=== PATIENT | male | born 1955 | race Hispanic/Latino ===

== ENCOUNTER 2017-11-13 13:03 | Emergency (ER) | payer BC ==
--- NOTE | 2017-11-13 14:21 | ER ---
Nurse's Notes [facility] Name: Alec Ortiz Jr Age: 62 yrs Sex: Male : 1955 Arrival Date: 11/13/2017 Time: 13:06 Bed 25 Private MD: Rome Bush R Diagnosis: Tinea pedis Presentation: 11/13 13:51 Presenting complaint: Patient states: c/o bilateral toes swelling x 2 days. Reports jl7 putting antibiotic ointment on and it's not helping. Transition of care: patient was not received from another setting of care. Onset of symptoms was November 11, 2017. Risk Assessment: Do you want to hurt yourself or someone else? Patient reports no desire to harm self or others. Initial Sepsis Screen: Does the patient meet any 2 criteria? No. Patient's initial sepsis screen is negative. Does the patient have a suspected source of infection? No. Patient's initial sepsis screen is negative. Care prior to arrival: None. 13:51 Method Of Arrival: Ambulatory [facility] 13:51 Acuity: WILLA 3 jl7 Triage Assessment: 13:21 General: Pt not in lobby at this time.. jl7 13:55 General: Appears in no apparent distress. uncomfortable, Behavior is calm, cooperative, jl7 appropriate for age. Pain: Complains of pain in right foot and left foot Pain currently is 6 out of 10 on a pain scale. GI: Reports nausea. Historical: - Allergies: 13:55 PENICILLINS; jl7 13:55 Codeine; jl7 - Home Meds: 13:55 metformin 500 mg Oral tab 1 tab 2 times per day [Active]; glimepiride 2 mg Oral tab 1 jl7 tab once daily [Active]; - PMHx: 13:55 Diabetes - NIDDM; Hypertension; jl7 - PSHx: 13:55 Cholecystectomy; jl7 - Immunization history:: Adult Immunizations not up to date. - Social history:: Smoking status: Patient/guardian denies using tobacco. - Ebola Screening: : No symptoms or risks identified at this time. Screenin:18 Abuse screen: Denies threats or abuse. Denies injuries from another. Nutritional kr2 screening: No deficits noted. Tuberculosis screening: No symptoms or risk factors identified. Fall Risk None identified. Assessment: 14:15 General: Appears in no apparent distress. comfortable, well groomed, well developed, kr2 well nourished, Behavior is calm, cooperative, appropriate for age. Pain: Complains of pain in left foot and right foot Pain currently is 5 out of 10 on a pain scale. Quality of pain is described as burning, throbbing, Is continuous, Alleviated by rest, Aggravated by weight bearing, Noted to be guarding. Neuro: Level of Consciousness is awake, alert, obeys commands, Oriented to person, place, time, situation. Cardiovascular: Capillary refill < 3 seconds in bilateral fingers Patient's skin is warm and dry. Respiratory: Airway is patent Respiratory effort is even, unlabored, Respiratory pattern is regular, symmetrical. GI: Abdomen is flat, non-distended, Reports nausea. Derm: Skin is healthy with good turgor, mild redness between toes, small crack in skin to bottom of right second toe. Musculoskeletal: Circulation, motion, and sensation intact. Vital Signs: 13:55 BP 147 / 82; Pulse 79; Resp 16 S; Temp 98.6(O); Pulse Ox 98% on R/A; Weight 95.25 kg jl7 (R); Height 5 ft. 6 in. (167.64 cm) (R); Pain 6/10; 13:55 Body Mass Index 33.89 (95.25 kg, 167.64 cm) jl7 ED Course: 13:06 Patient arrived in ED. mr 13:06 Rome Bush MD is Private Physician. mr 13:52 Triage completed. jl7 13:55 Arm band placed on left wrist. jl7 14:07 Sean Baker NP is PHCP. pm1 14:07 Vlad Hunter MD is Attending Physician. pm1 14:15 Tamara Garcia, IZZY is Primary Nurse. kr2 14:18 Patient has correct armband on for positive identification. Bed in low position. Call kr2 light in reach. Side rails up X 1. Pulse ox on. NIBP on. Door closed. Head of bed elevated. 14:28 No provider procedures requiring assistance completed. Patient did not have IV access kr2 during this emergency room visit. Administered Medications: No medications were administered Outcome: 14:20 Discharge ordered by . pm1 14:28 Discharged to home ambulatory. kr2 14:28 Condition: good 14:28 Discharge instructions given to patient, Instructed on discharge instructions, follow up and referral plans. medication usage, Demonstrated understanding of instructions, follow-up care, medications, Prescriptions given X 1. 14:28 Patient left the ED. kr2 Signatures: Alka Cedeno SamuelSean, SHEET SORTER SHEET SORTER pm1 Sonya Tavares, RN RN jl7 Tamara Garcia RN RN kr2
--- NOTE | 2017-11-13 14:21 | EDPHYS ---
Physician Documentation [facility] Name: Alec Ortiz Jr Age: 62 yrs Sex: Male : 1955 Arrival Date: 11/13/2017 Time: 13:06 Bed 25 Private MD: Rome Bush R ED Physician Vlad Hunter HPI: 11/13 14:16 This 62 yrs old Male presents to ER via Ambulatory with complaints of pm1 Bilateral Toe Pain. 14:48 The patient's rash thought to be caused by Has been working with his shoes and socks pm1 wet for the past few days. The rash is located on the all his toes bilaterally and between all his toes. The rash can be described as Painful and itchy. Onset: The symptoms/episode began/occurred 4 day(s) ago. Associated signs and symptoms: Pertinent negatives: fever, nausea, vomiting, Diarrhea. Severity of symptoms: in the emergency department the symptoms are worse. Treatment given at home: None. The patient has not recently seen a physician, the patient's primary care provider is Dr. Bush. Patient with complaints of pain to all of his toes bilaterally and pain between his toes in the webbing. 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 It has been raining just prior to onset of symptoms and duration of his symptoms. When it rains his socks and boots get wet. He does not change his socks and he works all day without changing them. Historical: - Allergies: 13:55 PENICILLINS; jl7 13:55 Codeine; jl7 - Home Meds: 13:55 metformin 500 mg Oral tab 1 tab 2 times per day [Active]; glimepiride 2 mg Oral tab 1 jl7 tab once daily [Active]; - PMHx: 13:55 Diabetes - NIDDM; Hypertension; jl7 - PSHx: 13:55 Cholecystectomy; jl7 - Immunization history:: Adult Immunizations not up to date. - Social history:: Smoking status: Patient/guardian denies using tobacco. - Ebola Screening: : No symptoms or risks identified at this time. ROS: 15:00 Constitutional: Negative for fever, chills, and weight loss, Eyes: Negative for injury, pm1 pain, redness, and discharge, ENT: Negative for injury, pain, and discharge, Neck: Negative for injury, pain, and swelling, Cardiovascular: Negative for chest pain, palpitations, and edema, Respiratory: Negative for shortness of breath, cough, wheezing, and pleuritic chest pain, Abdomen/GI: Negative for abdominal pain, nausea, vomiting, diarrhea, and constipation, Back: Negative for injury and pain, MS/Extremity: Negative for injury and deformity. 15:00 Neuro: Negative for headache, weakness, numbness, tingling, and seizure. 15:00 Skin: Positive for swelling, of the Toes, pain. Exam: 15:00 Constitutional: This is a well developed, well nourished patient who is awake, alert, pm1 and in no acute distress. Head/Face: Normocephalic, atraumatic. Chest/axilla: Normal chest wall appearance and motion. Nontender with no deformity. No lesions are appreciated. Cardiovascular: Regular rate and rhythm with a normal S1 and S2. No gallops, murmurs, or rubs. Normal PMI, no JVD. No pulse deficits. Respiratory: Lungs have equal breath sounds bilaterally, clear to auscultation and percussion. No rales, rhonchi or wheezes noted. No increased work of breathing, no retractions or nasal flaring. Abdomen/GI: Soft, non-tender, with normal bowel sounds. No distension or tympany. No guarding or rebound. No evidence of tenderness throughout. Back: No spinal tenderness. No costovertebral tenderness. Full range of motion. 15:00 Skin: Appearance: normal except for affected area, cellulitis, is not appreciated, consistent with tinea pedis. Interdigital scaling and cracking bilaterally. Vital Signs: 13:55 BP 147 / 82; Pulse 79; Resp 16 S; Temp 98.6(O); Pulse Ox 98% on R/A; Weight 95.25 kg jl7 (R); Height 5 ft. 6 in. (167.64 cm) (R); Pain 6/10; 13:55 Body Mass Index 33.89 (95.25 kg, 167.64 cm) jl7 MDM: 14:07 Patient medically screened. pm1 14:16 Data reviewed: vital signs. Data interpreted: Pulse oximetry: on room air is 98 %. pm1 Interpretation: normal. Counseling: I had a detailed discussion with the patient and/or guardian regarding: the historical points, exam findings, and any diagnostic results supporting the discharge/admit diagnosis, the need for outpatient follow up, to return to the emergency department if symptoms worsen or persist or if there are any questions or concerns that arise at home. Administered Medications: No medications were administered Disposition: 19:08 Co-signature as Attending Physician, Vlad Hunter MD. rn Disposition: 11/13/17 14:20 Discharged to Home. Impression: Tinea pedis. - Condition is Stable. - Discharge Instructions: Athlete's Foot. - Prescriptions for Clotrimazole 1 % Topical Cream - Apply to affected area 1 application by TOPICAL route every 12 hours; 30 gram. - Medication Reconciliation Form, Thank You Letter, Antibiotic Education form. - Follow up: Private Physician; When: 2 - 3 days; Reason: Recheck today's complaints, Continuance of care, Re-evaluation by your physician. Follow up: Emergency Department; When: As needed; Reason: Worsening of condition. - Problem is new. - Symptoms have improved. Signatures: Vlad Huntre MD MD rn Sean Baker, COMMUNITY MENTAL HEALTH SOCIAL WORKER COMMUNITY MENTAL HEALTH SOCIAL WORKER pm1 Sonya Tavares RN RN jl7 Tamara Garcia RN RN kr2 Corrections: (The following items were deleted from the chart) 14:28 14:20 11/13/2017 14:20 Discharged to Home. Impression: Tinea pedis. Condition is kr2 Stable. Forms are Medication Reconciliation Form, Thank You Letter, Antibiotic Education, Prescription Opioid Use. Follow up: Private Physician; When: 2 - 3 days; Reason: Recheck today's complaints, Continuance of care, Re-evaluation by your physician. Follow up: Emergency Department; When: As needed; Reason: Worsening of condition. Problem is new. Symptoms have improved. pm1
[2017-11-13 14:36] VITALS: BP 147/82; TEMP 98.6; O2SAT 98
== END 2017-11-13 14:28 | disposition home or self-care (01) ==
LOC: ER 13:03
DX: B35.3 Tinea pedis (principal); I10 Essential (primary) hypertension; E11.9 Type 2 diabetes mellitus without complications; Z88.0 Allergy status to penicillin; Z88.5 Allergy status to narcotic agent
CPT/HCPCS: 99283

== ENCOUNTER 2018-07-07 15:24 | Observation (INO) | payer BC ==
[2018-07-07 16:46] VITALS: O2SAT 97; BMI 33.5
[2018-07-07] MEDS ORDERED: GLUCAGON 1 MG/VIAL IM PRN (16:52)
[2018-07-07] MEDS ORDERED: D50W 25 GM/50 ML SYRINGE IV PRN (16:52)
[2018-07-07] MEDS ORDERED: PNEUMOCOCCAL VACCINE 0.5 ML IMVAC ONE (17:00)
[2018-07-07] MEDS ORDERED: INFLUENZA VACCINE (for 3y+) 0.5 ML DOSE IMVAC ONE (17:00)
[2018-07-07] MEDS: NACHLORIDE 0.45% 1,000 ML IV SCH (17:18)
[2018-07-07 17:54] LABS: Absolute Lymphocytes (CBC) 2.4 K/uL (0.7-4.9); Absolute Monocytes 0.8 K/uL (0.1-1.3); Absolute Neutrophil 4.9 K/uL (1.8-8.0); Basophils % 0.6 % (0-1.3); Eosinophils % 2.6 % (0-4.4); Hematocrit 46.4 % (39.6-49.0); Lymphocytes % 28.6 % (15.3-44.8); MPV 8.2 fL (7.6-11.3); Monocytes % 9.1 % (3.3-12.3); RBC Red Blood Cell Count 5.46 M/uL (4.33-5.43)
[2018-07-07 18:09] LABS: ALT/SGPT 56 U/L (12-78); AST/SGOT 29 U/L (15-37); Albumin 4.1 g/dL (3.4-5.0); Alkaline Phosphatase 77 U/L (45-117); BUN Blood Urea Nitrogen 9 mg/dL (7-18); Bicarbonate 31 mmol/L (21-32); Bilirubin Total 0.4 mg/dL (0.2-1.0); Glucose Level 142 mg/dL (74-106); Lipase 120 U/L (73-393); Potassium 4.1 mmol/L (3.5-5.1); Protein, Total 8.1 g/dL (6.4-8.2); Sodium Level 140 mmol/L (136-145)
[2018-07-07 18:16] LABS: Urine Appearance CLEAR; Urine Bilirubin NEGATIVE (NEG); Urine Blood NEGATIVE (NEG); Urine Color YELLOW; Urine Glucose NEGATIVE (NEG); Urine Protein NEGATIVE (NEG); Urine Specific Gravity 1.015 (1.005-1.030); Urine Urobilinogen 0.2 mg/dL (0.2-1.0)
[2018-07-07 18:17] LABS: Urine Microscopic Reflex NO UMIC
[2018-07-07] MEDS: MORPHINE 4 MG/ML SYR IV PRN ×2 (18:32→23:17)
--- NOTE | 2018-07-07 20:23 | RAD REPORT ---
EXAM DESCRIPTION: CT - Abdomen Pelvis W Contrast - 07/07/2018 7:35 pm CLINICAL HISTORY: Right-sided abdominal pain COMPARISON: CT study June 2012 TECHNIQUE: Biphasic, helical CT imaging of the abdomen and pelvis was performed following 100 ml non -ionic IV contrast. Oral contrast was given. All CT scans are performed using dose optimization technique as appropriate and may include automated exposure control or mA/KV adjustment according to patient size. FINDINGS: No suspicious findings in the lung bases. No focal liver lesions seen. Diffuse fatty infiltration of the liver is present. No spleen or pancrea tic abnormality. Cholecystectomy clips are present. No biliary tree dilatation. Symmetric renal function is seen with no hydronephrosis or suspicious renal mass. No pyelonephritis o r acute parenchymal process. No bladder abnormalities. No adrenal abnormalities. No dilated bowel loops or bowel wall thickening. Retrocecal appendix is normal. There is sigmoid and descending colon diverticulosis but no diverticulitis confirmed. No free air, free fluid or inflammat ory stranding. No hernia, mass or bulky lymphadenopathy. Right inguinal hernia repair changes are pr esent. No suspicious bony findings. IMPRESSION: Fatty infiltration of the liver. No focal liver lesion identified. Left-sided colonic diverticulosis without diverticulitis. No active GI process identifiable. No pyelonephritis, obstruction or other acute finding.
[2018-07-07] MEDS: INSULIN -REGULAR HUMAN 50 UNIT/0.5 ML ML SQ SCH (21:00)
[2018-07-07] MEDS ORDERED: INSULIN -REGULAR HUMAN 50 UNIT/0.5 ML ML SQ SCH (21:00)
[2018-07-08] MEDS: NACHLORIDE 0.45% 1,000 ML IV SCH ×2 (03:00→04:16)
[2018-07-08] MEDS: MORPHINE 4 MG/ML SYR IV PRN (04:16)
[2018-07-08 05:11] VITALS: TEMP 96.9
[2018-07-08] MEDS: INSULIN -REGULAR HUMAN 50 UNIT/0.5 ML ML SQ SCH ×2 (07:30→11:30)
[2018-07-08] MEDS ORDERED: ONDANSETRON 4 MG (ODT) TAB PO ONE (09:19)
--- NOTE | 2018-07-08 09:24 | HP ---
Date of Admission: 07/07/2018 Chief Complaint: Right abdominal pain. History Of Present Illness: A 63-year-old male was brought to the office with abdominal pain. He wa s found to have [id number]-[id number] tenderness in the right abdomen with a possibility of appendicitis or other acute pathology. The patient was admitted for observation. There is no history of urinary symptoms. Past Medical History: Positive for gallbladder surgery, type 2 diabetes, hyperlipidemia. Family History: Noncontributory. Personal History: He is allergic to codeine and penicillin. Review of Systems: The patient denied any chest pain. Home Medicines: Please refer to the chart. Physical Examination: General: Revealed 63-year-old male, in moderate pain. HEENT: Otherwise negative. Neck: Supple. JVD negative. Chest: Clear. Heart: Regular. Abdomen: Tender in right umbilical area. Bowel sounds present. No palpable mass. Extremities: No edema. Laboratory Data: White count, normal. Chem profile, normal. Assessment: 1.Abdominal pain. 2.Type 2 diabetes. 3.Status post gallbladder surgery. Plan: The patient had a CAT scan done yesterday. It did not show any evidence of acute pathology. The patient would need a colonoscopy; however, there is no GI on-call. The patient will be discharge d, and follow up in the office with GI workup. AMARA Voice ID: [id number]
[2018-07-08] MEDS ORDERED: AMLODIPINE 5 MG TAB PO ONE (11:46)
[2018-07-08 11:58] VITALS: BP 187/56
[2018-07-08] MEDS ORDERED: INFLUENZA VACCINE (for 3y+) 0.5 ML DOSE IMVAC ONE (12:00)
[2018-07-08] MEDS ORDERED: PNEUMOCOCCAL VACCINE 0.5 ML IMVAC ONE (12:00)
== END 2018-07-08 12:04 | disposition home or self-care (01) ==
LOC: 4TH 15:44
PROVIDERS: ADMIT Internal Medicine; ATTEND Internal Medicine
DX: R10.9 Unspecified abdominal pain (principal); E11.9 Type 2 diabetes mellitus without complications; E78.5 Hyperlipidemia, unspecified; Z90.49 Acquired absence of other specified parts of digestive tract; Z23 Encounter for immunization
CPT/HCPCS: 36415; 74177; 80053; 81003; 82962; 83690; 85025; 87086; 87088; 90670; G0008; G0009; G0378; Q2035; Q9967

== ENCOUNTER 2019-01-03 14:38 | Emergency (ER) | payer BC ==
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
[2019-01-03] MEDS ORDERED: CYCLOBENZAPRINE 10 MG TAB ONE (17:29)
[2019-01-03 20:23] VITALS: TEMP 98.3
[2019-01-03 20:24] VITALS: O2SAT 99
[2019-01-03 20:25] VITALS: BP 145/69
== END 2019-01-03 17:35 | disposition home or self-care (01) ==
LOC: ER 14:38
DX: S46.012A Strain of muscle(s) and tendon(s) of the rotator cuff of left shoulder, initial encounter (principal); S16.1XXA Strain of muscle, fascia and tendon at neck level, initial encounter; S39.012A Strain of muscle, fascia and tendon of lower back, initial encounter; V69.40XA Driver of heavy transport vehicle injured in collision with unspecified motor vehicles in traffic accident, initial encounter; I10 Essential (primary) hypertension; E11.9 Type 2 diabetes mellitus without complications; Z88.0 Allergy status to penicillin; Z88.5 Allergy status to narcotic agent
CPT/HCPCS: 70450; 71045; 72100; 72125; 72170; 99284

== ENCOUNTER 2019-09-21 09:05 | Emergency (ER) | payer BC ==
[2019-09-21 09:59] LABS: Absolute Lymphocytes (CBC) 1.5 K/uL (0.7-4.9); Basophils % 0.5 % (0-1.3); Hematocrit 41.2 % (39.6-49.0); Lymphocytes % 19.1 % (15.3-44.8); MPV 8.7 fL (7.6-11.3); RBC Red Blood Cell Count 4.78 M/uL (4.33-5.43)
--- NOTE | 2019-09-21 10:02 | RAD REPORT ---
EXAM DESCRIPTION: CT - Ct Stroke Brain Wo Cont - 09/21/2019 9:53 am CLINICAL HISTORY: left sided numbness Headache, drowsiness COMPARISON: No comparisons TECHNIQUE: All CT scans are performed using dose optimization technique as appropriate and may inclu de automated exposure control or mA/KV adjustment according to patient size. FINDINGS: No intracranial hemorrhage, hydrocephalus or extra-axial fluid collection.No areas of brai n edema or evidence of midline shift. The paranasal sinuses and mastoids are clear. The calvarium is intact. IMPRESSION: No acute intracranial abnormality. The findings were discussed with JERI Mares on 09-21-19 at 9:56 am by telephone.
[2019-09-21 10:05] LABS: Protime INR 0.97
--- OUTSIDE RECORDS SUMMARY | 2019-09-21 10:19 | XMS REPORT ---
:1955 Author Organization [facility] t Address [address] 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 Allergies, Adverse Reactions, Alerts This patient has no known allergies or adverse reactions. Medications This patient has no known medications. Procedures This patient has no known procedures. Encounters Start End Encounter Admission Attending Care Care Encounter Source Date/Time Date/Time Type Type Clinicians Facility Department ID 2019-08-04 2019-08-04 Telephone JOSE M Benitez [id number] 00:00:00 00:00:00 Amita HARRIS [id number] [facility] [id number] 2019-08-04 2019-08-04 Telephone JOSE M Long [id number] 00:00:00 00:00:00 Silvia HARRIS [id number] [facility] [id number] 2019-08-02 2019-08-02 Urgent Pob1, Acute [facility] [id number] 08:02:14 08:22:14 [facility] [id number] [place] [id number] [address] [id number] [address] Results This patient has no known results.
--- OUTSIDE RECORDS SUMMARY | 2019-09-21 10:20 | XMS REPORT | Summary of Care ---
:1955 Author Organization [facility] Address [address] [place] [address] Care Team Providers Name Role Phone Rome Juarez MD Primary Care Provider [phone] Reason for Visit Reason Comments Results Encounter Details Date Type Department Care Team Description 08/04/2019 Telephone ACCESS CENTER Silvia Long FNP Results 301 [facility] [address] [place] [address] [facility] [phone] [place] [id number] 15-1500 Allergies Active Allergy Reactions Severity Noted Date Comments Codeine Other - See comments 08/02/2019 Penicillins Other - See comments 08/02/2019 documented as of this encounter (statuses as of 08/04/2019) Medications Medication Sig Dispensed Refills Start Date End Date Status metFORMIN 500 mg TK 2 TS PO BID 0 05/13/2019 Active tablet glimepiride 2 mg TK 1 T PO QPM 0 05/13/2019 Active tablet amLODIPine 10 mg TK 1 T PO QAM. 0 07/18/2019 Active tablet lisinopril 40 mg TK 1 T PO QAM 0 07/04/2019 Active tablet pravastatin 20 mg TK 1 T PO QHS 0 07/04/2019 Active tablet benzonatate Take 1 capsule by 42 capsule 0 08/02/2019 08/16/19 20 Active (TESSALON PERLES) mouth 3 (three) 100 mg times daily for capsuleIndications: 14 days. Cough maalox:diphenhydrAMI Take 10 mL by 50 mL 0 08/02/201907/26 Active NE:lidocaine 2 % mouth as needed viscous for Oral 1:1:1Indications: mucositis for up Sore throat to 5 days. azithromycin Take 1 tablet by 5 tablet 0 08/02/2019 0 Active (ZITHROMAX Z-DOMINIK) mouth daily for 5 250 mg days. Take 500 mg tabletIndications: day 1, then 250 Sore throat, mg days 2 to 5. Pharyngitis, unspecified etiology documented as of this encounter (statuses as of 08/04/2019) Active Problems No known active problemsdocumented as of this encounter (statuses as of 08/04/2019) Social History Tobacco Use Types Packs/Day Years Used Date Never Assessed Sex Assigned at Date Recorded Not on file Job Start Date Occupation Industry Not on file Not on file Not on file Travel History Travel Start Travel End No recent travel history available. documented as of this encounter Last Filed Vital Signs Not on filedocumented in this encounter Plan of Treatment Health Maintenance Due Date Last Done Comments HEPATITIS C (HCV) SCREEN 1955 DTaP,Tdap,and Td Vaccines (1 - 1967 Tdap) COLONOSCOPY 2006 Zoster Recombinant Vaccine 2006 (SHINGRIX) (1 of 2) INFLUENZA VACCINE (#1) 2018 PNEUMOCOCCAL 0-64 YEARS COMBINED Aged Out No longer eligible based on SERIES patient's age to complete this topic documented as of this encounter Results Not on filedocumented in this encounter Insurance Payer Benefit Plan Subscriber ID Effective Dates Phone Address Type / Group [facility] [id number] 2018-Mehdi [phone] [address] PPO/POS [place] t [id number] [place] [address] documented as of this encounter
--- OUTSIDE RECORDS SUMMARY | 2019-09-21 10:20 | XMS REPORT | Summary of Care ---
:1955 Author Organization [facility] Address [address] [place] [id number] Care Team Providers Name Role Phone Rome Juarez MD Primary Care Provider [phone] Reason for Visit Reason Comments Results Encounter Details Date Type Department Care Team Description 08/04/2019 Telephone ACCESS CENTER Amita Benitez RN Results [address] [address] [place] [address] Allergies Active Allergy Reactions Severity Noted Date [...] Effective Dates Phone Address Type / Group [facility] [id number] 2018-Mehdi [phone] [address] PPO/POS [place] t 7 [id number] [place] [address] documented as of this encounter
--- OUTSIDE RECORDS SUMMARY | 2019-09-21 10:20 | XMS REPORT | Summary of Care ---
:1955 Author Organization [facility] Address [address] [place] [id number] Care Team Providers Name Role Phone Rome Juarez MD Primary Care Provider [phone] Reason for Visit Reason Comments Cough Shortness of Breath chest tightening is what he decribed Sore Throat Encounter Details Date Type Department Care Team Description 08/02/2019 Urgent Care [facility] Family Oneal Wood MD [address] [place] [id number] [phone] Pharyngitis, unspecified etiology (Prima ry Dx); [place] [id number], Acute Care Clinic Sore throat; [address] [place] [phone] Allergies Active Allergy Reactions Severity Noted Date Comments Codeine Other - See comments 08/02/2019 Penicillins Other - See comments 08/02/2019 documented as of this encounter (statuses as of 08/02/2019) Medications Medication Sig Dispensed Refills Start Date [...] as of this encounter (statuses as of 08/02/2019) Active Problems No known active problemsdocumented as of this encounter (statuses as of 08/02/2019) Social History Tobacco Use Types Packs/Day Years Used Date Never Assessed Sex Assigned at Date Recorded Not on file Job Start Date Occupation Industry Not on file Not on file Not on file Travel History Travel Start Travel End No recent travel history available. documented as of this encounter Last Filed Vital Signs Vital Sign Reading Time Taken Comments Blood Pressure 127/78 08/02/2019 8:30 AM CDT Pulse 76 08/02/2019 8:28 AM CDT Temperature 36.5 C (97.7 F) 08/02/2019 8:28 AM CDT Respiratory Rate 19 08/02/2019 8:28 AM CDT Oxygen Saturation 98% 08/02/2019 8:28 AM CDT Inhaled Oxygen Concentration - - Weight 102.1 kg (225 lb) 08/02/2019 8:28 AM CDT Height 167.6 cm (5' 6") 08/02/2019 8:28 AM CDT Body Mass Index 36.32 08/02/2019 8:28 AM CDT documented in this encounter Progress Notes Silvia Long FNP - 08/02/2019 8:40 AM CDT Cc: Chief Complaint Patient presents with Cough Shortness of Breath Sore Throat Alec Ortiz is a 64 year old male. 3-4 day severe sore throat, and cough...feels like pins in throat. Denies SOB but states chest tightening, which was mild and is resolving. Cough Cough characteristics: Dry and hacking Sputum characteristics: Nondescript Severity: Mild Onset quality: Gradual Timing: Constant Progression: Worsening Chronicity: New Smoker: no Context: upper respiratory infection Context: not sick contacts Relieved by: Nothing Worsened by: Deep breathing Ineffective treatments: None tried Associated symptoms: myalgias and sore throat Associated symptoms: no chest pain, no chills, no fever, no headaches, no shortness of breath, no sinus congestion and no wheezing Associated symptoms comment: Myalgia Myalgias: Location: Generalized Quality: Aching Severity: Moderate Onset quality: Gradual Timing: Constant Progression: Worsening Sore throat: Severity: Moderate Onset quality: Gradual Timing: Constant Progression: Worsening Risk factors: no recent infection Allergies Alec is allergic to codeine and pcn [penicillins]. Medications Outpatient Medications Prior to Visit Medication Sig Dispense Refill amLODIPine 10 mg tablet TK 1 T PO QAM. glimepiride 2 mg tablet TK 1 T PO QPM lisinopril 40 mg tablet TK 1 T PO QAM metFORMIN 500 mg tablet TK 2 TS PO BID pravastatin 20 mg tablet TK 1 T PO QHS No facility-administered medications prior to visit. Histories No past medical history on file. No past surgical history on file. Social History Socioeconomic History Marital status: Spouse name: Not on file Number of children: Not on file Years of education: Not on file Highest education level: Not on file Occupational History Not on file Social Needs Financial resource strain: Not on file Food insecurity: Worry: Not on file Inability: Not on file Transportation needs: Medical: Not on file Non-medical: Not on file Tobacco Use Smoking status: Not on file Substance and Sexual Activity Alcohol use: Not on file Drug use: Not on file Sexual activity: Not on file Lifestyle Physical activity: Days per week: Not on file Minutes per session: Not on file Stress: Not on file Relationships Social connections: Talks on phone: Not on file Gets together: Not on file Attends jain service: Not on file Active member of club or organization: Not on file Attends meetings of clubs or organizations: Not on file Relationship status: Not on file Intimate partner violence: Fear of current or ex partner: Not on file Emotionally abused: Not on file Physically abused: Not on file Forced sexual activity: Not on file Other Topics Concern Not on file Social History Narrative Not on file No family history on file. Review of Systems Constitutional: Negative. Negative for chills, fatigue and fever. HENT: Positive for sore throat and trouble swallowing (soreness to swallow but able to swallow). Negative for voice change. Eyes: Negative. Respiratory: Positive for cough. Negative for chest tightness, shortness of breath and wheezing. Cardiovascular: Negative. Negative for chest pain and palpitations. Gastrointestinal: Negative. Musculoskeletal: Positive for myalgias. Neurological: Negative. Negative for syncope, weakness, light-headedness and headaches. Psychiatric/Behavioral: Negative. Endocrine: Endocrine negative Vital Signs BP 127/78 | Pulse 76 | Temp 36.5 C (97.7 F) (Oral) | Resp 19 | Ht 5' 6" (1.676 m) | Wt 225 lb (102.1 kg) | SpO2 98% | BMI 36.32 kg/m Physical Exam Constitutional: He is oriented to person, place, and time. He appears well- developed. No distress. HENT: Head: Normocephalic. Right Ear: Hearing, tympanic membrane, external ear and ear canal normal. Left Ear: Hearing, tympanic membrane, external ear and ear canal normal. Nose: Nose normal. No rhinorrhea. Right sinus exhibits no maxillary sinus tenderness and no frontal sinus tenderness. Left sinus exhibits no maxillary sinus tenderness and no frontal sinus tenderness. Mouth/Throat: Uvula is midline and mucous membranes are normal. Posterior oropharyngeal erythema present. No oropharyngeal exudate, posterior oropharyngeal edema or tonsillar abscesses. No tonsillar exudate. Eyes: Conjunctivae and lids are normal. Cardiovascular: Normal rate, regular rhythm, normal heart sounds and intact distal pulses. Exam reveals no gallop and no friction rub. No murmur heard. Pulmonary/Chest: Effort normal and breath sounds normal. No stridor. No respiratory distress. He hasno wheezes. He has no rales. He exhibits no tenderness. Abdominal: Soft. Bowel sounds are normal. Lymphadenopathy: Head (right side): No submental, no submandibular, no tonsillar, no preauricular and no posterior auricular adenopathy present. Head (left side): No submental, no submandibular, no tonsillar, no preauricular and no posterior auricular adenopathy present. He has cervical adenopathy. Right cervical: Superficial cervical and deep cervical adenopathy present. Left cervical: Superficial cervical and deep cervical adenopathy present. Neurological: He is alert and oriented to person, place, and time. Skin: Skin is warm and dry. Capillary refill takes less than 2 seconds. Psychiatric: He has a normal mood and affect. Nursing note and vitals reviewed. Assessment/Plan 1. Sore throat: POCT strep done and was negative, covid sent pending result. Magic mouth wash given for symptoms relief. In the meantime, quarantine in place, treat symptoms with OTC meds, Tylenol as needed but no NSAIDs. Stay in quarantine until symptoms subsides, plus 3 days afterwards or until youhear otherwise. Follow up with your PCP as needed, and if with worsening of symptoms, any respiratory distress, go to the ER. B. Pharyngitis: Magic mouth wash. Z-pack as he is allergic to penicillin Dont smoke, and avoid secondhand smoke. Try lozenges OTC as directed Drink warm liquids to soothe the throat and help thin mucus. Avoid alcohol, spicy foods, and acidic drinks such as orange juice. These can irritate the throat. Gargle with warm saltwater (1 teaspoon of salt to 8 ounces of warm water). Use a humidifier to keep air moist and relieve throat dryness. Try [id number] pain relievers such as acetaminophen or ibuprofen. Use as directed, and dont exceed the recommended dose. 2. Cough: Tessalon given for symptoms relief. Chest tightening was mild and has since revolved. mAgain if no relief, worse or new onset of symptoms like respiratory distress, go to the ER as states above. Plan of care, desired health behaviors, goals, and medication discussed with patient. Education resources provided and reviewed with AVS. Patient/guardian/family verbalized understanding & agrees to plan of care. This visit did not involve counseling and coordination that comprised more than 50% of the visit time. If applicable, the [place] [employer] database was accessed to review any controlled substance prescription claims data. The [employer] prescription claims data in [employer] was reviewed to assess patient compliance with the medication treatment plan. documented in this encounter Plan of Treatment Name Type Priority Associated Diagnoses Order S chedule CORONAVIRUS COVID-19 LAB Routine Sore throat Expected: 08/02/2019, TESTING Cough Expires: 2020 Health Maintenance Due Date Last Done Comments HEPATITIS C (HCV) SCREEN 1955 DTaP,Tdap,and Td Vaccines (1 - 1967 Tdap) COLONOSCOPY 2006 Zoster Recombinant Vaccine 2006 (SHINGRIX) (1 of 2) INFLUENZA VACCINE (#1) 2018 PNEUMOCOCCAL 0-64 YEARS COMBINED Aged Out No longer eligible based on SERIES patient's age to complete this topic documented as of this encounter Procedures Procedure Name Priority Date/Time Associated Diagnosis Comme nts POCT GRP A STREP Routine 08/02/2019 8:46 AM Sore throat Resu lts for this (MOLECULAR) CDT procedure are i n the results section. documented in this encounter Results POCT GRP A STREP (MOLECULAR) (08/02/2019 8:46 AM CDT) Pathologist Sig nature POCT GP A STREP Negative Negative - Negative Specimen Swab - THROAT documented in this encounter Visit Diagnoses Diagnosis Pharyngitis, unspecified etiology - Prim david Sore throat Acute pharyngitis Cough documented in this encounter Insurance Payer Benefit Plan Subscriber ID Effective Dates Phone Address Type / Group BCBS [facility] [id number] 2018-Mehdi [phone] [address] PPO/POS [place] t [id number] [place] [address] documented as of this encounter
--- NOTE | 2019-09-21 10:22 | RAD REPORT ---
EXAM DESCRIPTION: RAD - STROKE CXR 1 VIEW - 09/21/2019 10:13 am CLINICAL HISTORY: weakness Chest pain, CVA symptomology COMPARISON: Chest Single View dated 01/03/2019 FINDINGS: The lungs appear clear. The heart is normal in size. No fracture evident.
[2019-09-21] MEDS ORDERED: LORazepam 2 MG/ML VIAL ONE ×2 (11:20→13:56)
--- NOTE | 2019-09-21 12:50 | EKG ---
Test Date: 2019-09-21 Test Time: 09:49:31 Ballistics Tester: DAYAMI MEASUREMENT RESULTS: Intervals: Rate: 72 VA: 146 QRSD: 90 QT: 388 QTc: 424 [place]: P: 52 VA: 146 QRS: 37 T: 57 INTERPRETIVE STATEMENTS: Normal sinus rhythm Normal ECG Compared to ECG 03/27/2017 00:09:51 No significant changes Electronically Signed On 09-21-19 12:49:59 CDT by Vignesh Ying
--- NOTE | 2019-09-21 16:11 | RAD REPORT ---
EXAM DESCRIPTION: MRI - Brain W/Wo Cont - 09/21/2019 4:02 pm CLINICAL HISTORY: left sided weakness COMPARISON: MRA Head Wo Cont dated 09/21/2019; Ct Stroke Brain Wo Cont dated 09/21/2019; MRA Neck W/Wo Cont dated 09/21/2019 TECHNIQUE: Sagittal and axial T1-weighted images were obtained. Axial PD/heavily T2-weighted and T2- FLAIR images were obtained along with axial DWI/ADC mapping sequences. Coronal heavily T2 weighted s equence obtained. Axial and coronal post-contrast T1-weighted images were also obtained. A ml Multi chris contrast following utilized. FINDINGS: No intracranial hemorrhage, mass or acute infarction. There is no edema or shift of midli ne structures. No extra-axial fluid collections. Herrera-matter/white matter junction is preserved. Sig nal voids are seen as a normal finding in the major intracranial vessels. No significant atrophy seen . Ventricles are normal in size. Patient has minimal scattered nonenhancing white matter T2 foci cons istent with a mild chronic ischemic change. Post-contrast images show normal enhancement. No dural thickening. Mastoid air cells and paranasal sinuses are clear. No globe or orbital content abnormality. No sella or supra sella abnormality. IMPRESSION: No acute infarction. No acute intracranial finding. Mild chronic ischemic change in the cerebral white matter.
--- NOTE | 2019-09-21 16:13 | RAD REPORT ---
EXAM DESCRIPTION: MRI - MRA Head Wo Cont - 09/21/2019 3:57 pm CLINICAL HISTORY: Right-sided weakness, stroke-like symptoms COMPARISON: None. TECHNIQUE: Axial and coronal 3D [id number] image acquisition was performed. 3D rotational images were generated with source and reconstruction images reviewed. Horizontal and vertical axis rotation al views generated using MIP protocol. FINDINGS: No aneurysm or vascular malformation identified. The anterior, middle and posterior cerebr al artery show no occlusion of the named branch. No vasculitis or other significant atherosclerotic c hange. Mild tortuosity of a small basilar artery. Basilar artery terminates at the superior cerebella r artery level. Patient has large bilateral posterior communicating arteries providing the posterior cerebral artery circulation. This is all normal variant presentation. IMPRESSION: MRA head examination showing no significant or suspicious finding.
--- NOTE | 2019-09-21 16:15 | RAD REPORT ---
EXAM DESCRIPTION: MRI - MRA Neck W/Wo Cont - 09/21/2019 4:02 pm CLINICAL HISTORY: Left side weakness, stroke-like symptoms COMPARISON: CT head same date, MRI brain same date TECHNIQUE: MR angiography of the cervical vasculature performed. Coronal imaging plane acquisition u tilized. A MultiHance contrast volume was utilized. Coronal reformatted images were generated and re viewed. Vertical axis 3D rotational projections obtained using maximum intensity projection protocol. FINDINGS: Aortic arch is bovine configuration with no origins stenosis. Vertebral artery origins are not well visualized. Left vertebral artery is dominant. No stenosis, dissection or significant verte bral artery finding. Bilateral common carotid and internal carotid arteries show no dissection, stenosis or measurable ath erosclerotic change. IMPRESSION: MRA neck examination showing no significant or suspicious finding.
[2019-09-21 18:12] VITALS: TEMP 98.2
[2019-09-21 18:21] VITALS: BP 127/69; O2SAT 97
--- NOTE | 2019-09-26 14:35 | ER ---
Nurse's Notes [facility] Name: Alec Ortiz Jr Age: 64 yrs Sex: Male : 1955 Arrival Date: 09/21/2019 Time: 09:12 Bed 7 Private MD: Rome Bush R Diagnosis: Paresthesia of skin Presentation: 09/20 09:17 Chief complaint: Left leg numbness that began yesterday at approx 9pm, left arm and hb left facial numbness upon waking today. VAN NEGATIGE. Coronavirus screen: Proceed with normal triage. Ebola Screen: No symptoms or risks identified at this time. Initial Sepsis Screen: Does the patient meet any 2 criteria? No. Patient's initial sepsis screen is negative. Does the patient have a suspected source of infection? No. Patient's initial sepsis screen is negative. Risk Assessment: Do you want to hurt yourself or someone else? Patient reports no desire to harm self or others. Onset of symptoms was September 20, 2019. 09:17 Method Of Arrival: Ambulatory hb 09:17 Acuity: WILLA 3 hb Historical: - Allergies: 09:21 Codeine; hb 09:21 PENICILLINS; hb - PMHx: 09:21 Hypertension; Diabetes - NIDDM; hb - PSHx: 09:21 Tonsillectomy; Knee surgery; pilonidal cyst; Cholecystectomy; hb - Immunization history:: Adult Immunizations up to date. - Social history:: Smoking status: Patient denies any tobacco usage or history of. Screenin:30 VAN Screening: Arm Drift: Patient shows no arm weakness. Patient is VAN negative. sv Patient has been NPO before screening. The patient is alert, able to follow commands. The patient does not exhibit slurred or garbled speech The patient is not exhibiting difficulty speaking. The patient does not exhibit difficulty understanding words. The patient is able to swallow own secretions with no drooling or need for suction. Patient tolerated one teaspoon of water. No drooling, immediate coughing, gurgling, or clearing of the throat was noted. The patient tolerated 90mL of water. No drooling, immediate coughing, gurgling, or clearing of the throat was noted. The patient passed the bedside swallow screening. Oral medications may be given as ordered. Contact Physician for further diet orders. Provider notified of bedside swallow screening results: Arnold WILCOX. 09:33 Abuse screen: Denies threats or abuse. Denies injuries from another. Nutritional sv screening: No deficits noted. Tuberculosis screening: No symptoms or risk factors identified. Fall Risk None identified. Assessment: 09:25 General: Appears in no apparent distress. comfortable, well groomed, well developed, sv Behavior is calm, cooperative, appropriate for age. Pain: Denies pain. Neuro: Level of Consciousness is awake, alert, obeys commands, Oriented to person, place, time, situation, Press Loader are equal bilaterally Moves all extremities. Full function Gait is steady, Speech is normal, Facial symmetry appears normal, Facial symmetry: tongue is midline, Reports dizziness, numbness in left zygomatic area, left cheek, left mandible, left arm and left leg the numbness started in his left foot last night about 9pm and when he woke up today the numbness went up to his left knee and about an hour ago he started having numbness to the left arm and face.. Cardiovascular: Patient's skin is warm and dry. Rhythm is sinus rhythm. Respiratory: Airway is patent Respiratory effort is even, unlabored, Respiratory pattern is regular, symmetrical. Derm: Skin is intact, Skin is pink, warm \T\ dry. Musculoskeletal: Range of motion: intact in all extremities. 11:15 Reassessment: Patient appears in no apparent distress at this time. No changes from sv previously documented assessment. Patient and/or family updated on plan of care and expected duration. Pain level reassessed. Patient is alert, oriented x 3, equal unlabored respirations, skin warm/dry/pink. Pt reports hx of claustrophobia. Arnold discussed with the pt and said that he would try out the medicine and see if he feels like it would help him do the MRI. 14:30 Reassessment: Patient appears in no apparent distress at this time. No changes from jl7 previously documented assessment. Patient and/or family updated on plan of care and expected duration. Pain level reassessed. Patient is alert, oriented x 3, equal unlabored respirations, skin warm/dry/pink. Patient denies pain at this time. 14:40 Reassessment: Patient appears in no apparent distress at this time. No changes from sv previously documented assessment. Patient and/or family updated on plan of care and expected duration. Pain level reassessed. Patient is alert, oriented x 3, equal unlabored respirations, skin warm/dry/pink. 16:40 Reassessment: Patient appears in no apparent distress at this time. No changes from sv previously documented assessment. Patient and/or family updated on plan of care and expected duration. Pain level reassessed. Patient is alert, oriented x 3, equal unlabored respirations, skin warm/dry/pink. 17:57 Reassessment: Patient appears in no apparent distress at this time. Patient and/or sv family updated on plan of care and expected duration. Pain level reassessed. Patient is alert, oriented x 3, equal unlabored respirations, skin warm/dry/pink. Vital Signs: 09:17 BP 153 / 87; Pulse 79; Resp 16; Temp 98.2; Pulse Ox 100% on R/A; Weight 95.25 kg; hb Height 5 ft. 6 in. (167.64 cm); Pain 3/10; 09:58 BP 132 / 79; Pulse 76; Resp 16; Pulse Ox 98% ; sv 11:18 BP 140 / 83; Pulse 79; Resp 17; Pulse Ox 98% ; sv 12:38 BP 114 / 79; Pulse 60; Resp 17; Pulse Ox 97% ; jl7 13:30 BP 141 / 78; Pulse 72; Resp 16 S; Pulse Ox 98% on R/A; jl7 14:30 BP 119 / 73; Pulse 59; Resp 15; Pulse Ox 98% ; Pain 0/10; jl7 15:57 BP 130 / 69; Pulse 62; Resp 16; Pulse Ox 98% ; sv 16:39 BP 127 / 69; Pulse 56; Resp 16; Pulse Ox 97% ; sv 09:17 Body Mass Index 33.89 (95.25 kg, 167.64 cm) hb NIH Stroke Scale Scores: 09:30 NIHSS Score: 2 sv 09:35 NIHSS Score: 2 [facility] ED Course: 09:12 Patient arrived in ED. mr 09:12 Rome Bush MD is Private Physician. mr 09:21 Triage completed. hb 09:21 Arm band placed on. hb 09:22 Arnold Ybarra PA is PHCP. [facility] 09:22 Julio Burnett MD is Attending Physician. [facility] 09:27 Rachel Manuel, RN is Primary Nurse. sv 09:33 Patient has correct armband on for positive identification. Placed in gown. Bed in low sv position. Call light in reach. Side rails up X 1. monitoring engineer on. Pulse ox on. NIBP on. Door closed. Head of bed elevated. 09:33 Inserted saline lock: 20 gauge in right antecubital area, using aseptic technique. sv Blood collected. Flushed right antecubital with 5 ml normal saline. 09:58 Awaiting lab results, Awaiting radiology results. sv 09:58 X-ray(s) taken. sv 15:25 PTT, Activated Partial Thromb Sent. sv 15:26 CBC with Automated Diff Sent. sv 15:26 Protime (+INR) Sent. sv 15:26 Basic Metabolic Panel Sent. sv 15:26 Glucose, Ancillary Testing Sent. sv 15:26 CT Stroke Brain w/o Contrast Sent. sv 15:26 Stroke CXR 1 View Sent. sv 15:26 Basic Metabolic Panel Sent. sv 15:30 CBC with Diff Sent. sv 15:30 Protime (+inr) Sent. sv 15:30 Ptt, Activated Sent. sv 16:40 Awaiting radiology results. sv 16:55 Troponin (emerg Dept Use Only) Sent. sv 17:06 Awaiting lab results. sv 17:34 Obi Guerrier MD is Referral Physician. snw 17:58 No provider procedures requiring assistance completed. IV discontinued, intact, sv bleeding controlled, No redness/swelling at site. Pressure dressing applied. Administered Medications: 11:17 Drug: Ativan 1 mg Route: IVP; Site: right antecubital; sv 12:00 Follow up: Response: No adverse reaction jl7 13:32 CANCELLED (Duplicate Order): Ativan 1 mg IVP once sv 14:40 Drug: Ativan 1 mg Route: IVP; Site: right antecubital; jl7 16:10 Follow up: Response: No adverse reaction sv Outcome: 17:35 Discharge ordered by . snw 17:58 Discharged to home via wheelchair, with family. sv 17:58 Condition: stable 17:58 Discharge instructions given to patient, Instructed on discharge instructions, follow up and referral plans. medication usage, Demonstrated understanding of instructions, follow-up care, medications, Prescriptions given X 2. 17:58 Patient left the ED. sv NIH Stroke Scale - NIH Stroke Score Date: 09/21/2019 Time: 09:30 Total Score = 2 1a. Level of Consciousness (LOC) - 0(Alert) 1b. Level of Consciousness (LOC) (Year \T\ Age) - 0(Both) 1c. LOC Commands (Open \T\ Closes Eyes/Insole Channeler) - 0(Both) 2. Best Gaze (Lateral Gaze Paresis) - 0(Normal) 3. Visual Field Loss - 0(No visual loss) 4. Facial Palsy - 1(Minor Paralysis) 5a. Left Arm: Motor (10-second hold) - 0(No drift) 5b. Right Arm: Motor (10-second hold) - 0(No drift) 6a. Left Leg: Motor (5-second hold - always test supine) - 0(No drift) 6b. Right Leg: Motor (5-second hold - always test supine) - 0(No drift) 7. Limb Ataxia (finger/nose \T\ heel/fisher - test with eyes open) - 0(Absent) 8. Sensory Loss (pinprick arms/legs/face) - 1(Mild to moderate loss) 9. Best Language: Aphasia (description/naming/reading) - 0(No aphasia) 10. Dysarthria (speech clarity - read or repeat words) - 0(Normal) 11. Extinction and Inattention (visual/tactile/auditory/spatial/personal) - 0(No abnormality) Initials: NIH Stroke Scale - NIH Stroke Score Date: 09/21/2019 Time: 09:35 Total Score = 2 1a. Level of Consciousness (LOC) - 0(Alert) 1b. Level of Consciousness (LOC) (Year \T\ Age) - 0(Both) 1c. LOC Commands (Open \T\ Closes Eyes/Insole Channeler) - 0(Both) 2. Best Gaze (Lateral Gaze Paresis) - 0(Normal) 3. Visual Field Loss - 0(No visual loss) 4. Facial Palsy - 1(Minor Paralysis) 5a. Left Arm: Motor (10-second hold) - 0(No drift) 5b. Right Arm: Motor (10-second hold) - 0(No drift) 6a. Left Leg: Motor (5-second hold - always test supine) - 0(No drift) 6b. Right Leg: Motor (5-second hold - always test supine) - 0(No drift) 7. Limb Ataxia (finger/nose \T\ heel/fisher - test with eyes open) - 0(Absent) 8. Sensory Loss (pinprick arms/legs/face) - 1(Mild to moderate loss) 9. Best Language: Aphasia (description/naming/reading) - 0(No aphasia) 10. Dysarthria (speech clarity - read or repeat words) - 0(Normal) 11. Extinction and Inattention (visual/tactile/auditory/spatial/personal) - 0(No abnormality) Initials: [facility] Signatures: Rachel Manuel RN RN Adalgisa Mcnamara, DIRECTOR PUBLIC POLICY-C DIRECTOR PUBLIC POLICY-Csnw Arnold Ybarra PA PA jmm Rivera, Mary mr Carla Riojas RN RN Sonya Parra RN RN jl7 Corrections: (The following items were deleted from the chart) 17:30 15:25 To radiology for Stroke Protocol. EDMS 17:33 15:26 To radiology for MR STROKE PROTOCOL+MRI.KENY. EDMS
--- NOTE | 2019-09-26 14:35 | EDPHYS ---
Physician Documentation [facility] Name: Alec Ortiz Jr Age: 64 yrs Sex: Male : 1955 Arrival Date: 09/21/2019 Time: 09:12 Bed 7 Private MD: Rome Bush R ED Physician Julio Burnett HPI: 09/20 09:35 This 64 yrs old Male presents to ER via Ambulatory with complaints of Numbness jmm Of Face, Leg numbness. 09:35 The patient's problem is reported as paresthesias. Onset: The symptoms/episode jmm began/occurred 1 day(s) ago. Duration: This was a single incident. The symptoms are alleviated by nothing. The symptoms are aggravated by nothing. Associated signs and symptoms: Pertinent positives: chest tightness. This is a 64 year old male with a history of DM, HTN, that presents to the ED with complaints numbness to the toes beginning last night with development of numbness to the left leg ascending up the left side of the body into the face. Patient also complains of chest tightness. . Historical: - Allergies: 09:21 Codeine; hb 09:21 PENICILLINS; hb - PMHx: 09:21 Hypertension; Diabetes - NIDDM; hb - PSHx: 09:21 Tonsillectomy; Knee surgery; pilonidal cyst; Cholecystectomy; hb - Immunization history:: Adult Immunizations up to date. - Social history:: Smoking status: Patient denies any tobacco usage or history of. ROS: 09:35 Constitutional: Negative for fever, chills, and weight loss, Respiratory: Negative for jmm shortness of breath, cough, wheezing, and pleuritic chest pain. 09:35 Abdomen/GI: Negative for abdominal pain, nausea, vomiting, diarrhea, and constipation, Back: Negative for injury and pain. 09:35 Cardiovascular: Positive for 09:35 Neuro: Positive for numbness, weakness. 09:35 All other systems are negative. Exam: 09:35 Constitutional: This is a well developed, well nourished patient who is awake, alert, jmm and in no acute distress. 09:35 Eyes: EOMI, no conjunctival erythema appreciated ENT: Moist Mucus Membranes Neck: Trachea midline, Supple Chest/axilla: Normal chest wall appearance and motion. Cardiovascular: Regular rate and rhythm. No edema appreciated Respiratory: Normal respirations, no respiratory distress appreciated Abdomen/GI: Non distended, soft Back: Normal ROM Skin: General appearance color normal MS/ Extremity: Moves all extremities, no obvious deformities appreciated, no edema noted to the lower extremities 09:35 Head/face: left sided facial droop, (+) eyebrow involvement. 09:35 Neuro: Orientation: is normal, Mentation: is normal, Memory: is normal, Cerebellar function: normal finger to nose testing, heel to fisher testing is normal, Motor: is normal, Sensation: Gait: is steady, left sided facial droop. 09:50 ECG was reviewed by the Attending Physician. [facility] Vital Signs: 09:17 BP 153 / 87; Pulse 79; Resp 16; Temp 98.2; Pulse Ox 100% on R/A; Weight 95.25 kg; hb Height 5 ft. 6 in. (167.64 cm); Pain 3/10; 09:58 BP 132 / 79; Pulse 76; Resp 16; Pulse Ox 98% ; sv 11:18 BP 140 / 83; Pulse 79; Resp 17; Pulse Ox 98% ; sv 12:38 BP 114 / 79; Pulse 60; Resp 17; Pulse Ox 97% ; jl7 13:30 BP 141 / 78; Pulse 72; Resp 16 S; Pulse Ox 98% on R/A; jl7 14:30 BP 119 / 73; Pulse 59; Resp 15; Pulse Ox 98% ; Pain 0/10; jl7 15:57 BP 130 / 69; Pulse 62; Resp 16; Pulse Ox 98% ; sv 16:39 BP 127 / 69; Pulse 56; Resp 16; Pulse Ox 97% ; sv 09:17 Body Mass Index 33.89 (95.25 kg, 167.64 cm) NIH Stroke Scale Scores: 09:30 NIHSS Score: 2 sv 09:35 NIHSS Score: 2 [facility] MDM: 09:26 Patient medically screened. [facility] 16:48 Data reviewed: vital signs, nurses notes. Counseling: I had a detailed discussion with juventino the patient and/or guardian regarding: the historical points, exam findings, and any diagnostic results supporting the discharge/admit diagnosis, lab results, radiology results, the need for outpatient follow up, to return to the emergency department if symptoms worsen or persist or if there are any questions or concerns that arise at home. ED course: Symptoms have decreased in the ED. Imaging studies are negative for CVA. I discussed the patient with Dr. Guerrier whom recommends folic acid and asa regimen . 09/20 09:32 Order name: Basic Metabolic Panel [facility] 09/20 09:32 Order name: CBC with Diff [facility] 09/20 09:32 Order name: Protime (+inr) [facility] 09/20 09:32 Order name: Ptt, Activated [facility] 09/20 13:42 Order name: Glucose, Ancillary Testing [facility] 09/20 13:42 Order name: Basic Metabolic Panel [facility] 09/20 09:32 Order name: CT Stroke Brain w/o Contrast [facility] 09/20 09:32 Order name: Stroke CXR 1 View [facility] 09/20 13:42 Order name: CBC with Automated Diff [facility] 09/20 13:42 Order name: Protime (+INR) [facility] 09/20 13:42 Order name: PTT, Activated Partial Thromb [facility] 09/20 16:39 Order name: Troponin (emerg Dept Use Only) [facility] 09/20 17:26 Order name: Troponin (Emerg Dept Use Only); Complete Time: 17:40 [facility] 09/20 09:32 Order name: EKG; Complete Time: 11:35 [facility] 09/20 09:32 Order name: Accucheck; Complete Time: 10:01 [facility] 09/20 09:32 Order name: Cardiac monitoring; Complete Time: 10:01 [facility] 09/20 09:32 Order name: EKG - Nurse/Tech; Complete Time: 10:01 [facility] 09/20 09:32 Order name: IV Saline Lock; Complete Time: 10: [facility] 09/20 09:32 Order name: Labs collected and sent; Complete Time: 10: [facility] 09/20 09:32 Order name: NPO; Complete Time: 10: [facility] 09/20 12:57 Order name: CT; Complete Time: 13:28 [facility] 09/20 12:57 Order name: RAD; Complete Time: 13:28 [facility] 09/20 17:30 Order name: MRA Head Wo Cont [facility] 09/20 17:33 Order name: Brain W/Wo Cont [facility] 09/20 17:33 Order name: MRA Neck W/Wo Cont [facility] 09/20 09:32 Order name: O2 Per Protocol; Complete Time: 10:03 [facility] 09/20 09:32 Order name: O2 Sat Monitoring; Complete Time: 10: [facility] 09/20 09:32 Order name: Stroke Swallow Screen; Complete Time: 10: [facility] EC:50 Rate is 72 beats/min. Rhythm is regular. QRS [place] is Normal. MD interval is normal. QRS jmm interval is normal. QT interval is normal. No Q waves. T waves are Normal. No ST changes noted. Reviewed by me. Administered Medications: 11:17 Drug: Ativan 1 mg Route: IVP; Site: right antecubital; sv 12:00 Follow up: Response: No adverse reaction jl7 13:32 CANCELLED (Duplicate Order): Ativan 1 mg IVP once sv 14:40 Drug: Ativan 1 mg Route: IVP; Site: right antecubital; jl7 16:10 Follow up: Response: No adverse reaction sv Disposition: 09/21 09:50 Co-signature as Attending Physician, Julio Burnett MD I agree with the assessment and kdr plan of care. Disposition: 09/21/19 17:35 Discharged to Home. Impression: Paresthesia of skin. - Condition is Stable. - Discharge Instructions: Paresthesia. - Prescriptions for aspirin 81 mg Oral tablet,chewable - chew 1 tablet by ORAL route once daily; 30 tablet. Folic Acid 1 mg Oral Tablet - take 1 tablet by ORAL route once daily; 30 tablet. - Work release form, Medication Reconciliation Form, Thank You Letter, Antibiotic Education, Prescription Opioid Use form. - Follow up: Obi Guerrier; When: 2 - 3 days; Reason: Recheck today's complaints, Continuance of care, Re-evaluation by your physician. NIH Stroke Scale - NIH Stroke Score Date: 09/21/2019 Time: 09:30 Total Score = 2 1a. Level of Consciousness (LOC) - 0(Alert) 1b. Level of Consciousness (LOC) (Year \T\ Age) - 0(Both) 1c. LOC Commands (Open \T\ Closes Eyes/Laster Hand) - 0(Both) 2. Best Gaze (Lateral Gaze Paresis) - 0(Normal) 3. Visual Field Loss - 0(No visual loss) 4. Facial Palsy - 1(Minor Paralysis) 5a. Left Arm: Motor (10-second hold) - 0(No drift) 5b. Right Arm: Motor (10-second hold) - 0(No drift) 6a. Left Leg: Motor (5-second hold - always test supine) - 0(No drift) 6b. Right Leg: Motor (5-second hold - always test supine) - 0(No drift) 7. Limb Ataxia (finger/nose \T\ heel/fisher - test with eyes open) - 0(Absent) 8. Sensory Loss (pinprick arms/legs/face) - 1(Mild to moderate loss) 9. Best Language: Aphasia (description/naming/reading) - 0(No aphasia) 10. Dysarthria (speech clarity - read or repeat words) - 0(Normal) 11. Extinction and Inattention (visual/tactile/auditory/spatial/personal) - 0(No abnormality) Initials: [facility] NIH Stroke Scale - NIH Stroke Score Date: 09/21/2019 Time: 09:35 Total Score = 2 1a. Level of Consciousness (LOC) - 0(Alert) 1b. Level of Consciousness (LOC) (Year \T\ Age) - 0(Both) 1c. LOC Commands (Open \T\ Closes Eyes/Laster Hand) - 0(Both) 2. Best Gaze (Lateral Gaze Paresis) - 0(Normal) 3. Visual Field Loss - 0(No visual loss) 4. Facial Palsy - 1(Minor Paralysis) 5a. Left Arm: Motor (10-second hold) - 0(No drift) 5b. Right Arm: Motor (10-second hold) - 0(No drift) 6a. Left Leg: Motor (5-second hold - always test supine) - 0(No drift) 6b. Right Leg: Motor (5-second hold - always test supine) - 0(No drift) 7. Limb Ataxia (finger/nose \T\ heel/fisher - test with eyes open) - 0(Absent) 8. Sensory Loss (pinprick arms/legs/face) - 1(Mild to moderate loss) 9. Best Language: Aphasia (description/naming/reading) - 0(No aphasia) 10. Dysarthria (speech clarity - read or repeat words) - 0(Normal) 11. Extinction and Inattention (visual/tactile/auditory/spatial/personal) - 0(No abnormality) Initials: [facility] Signatures: Dispatcher [employer] Rachel Barbour RN Julio Jackman MD MD kdr Therrien, Shelly, INDUSTRIAL ENGINEERING DIRECTOR-C INDUSTRIAL ENGINEERING DIRECTOR-Csnw Arnold Ybarra PA PA [facility] Carla Riojas, IZZY RN Sonya Tavares RN RN jl7 Corrections: (The following items were deleted from the chart) 09/20 13:32 13:29 Ativan 1 mg IVP once ordered. [facility] 17:30 13:55 Stroke Protocol ordered. [facility] 17:33 11:35 MR STROKE PROTOCOL+MRI.RAD.BRZ ordered. [facility] 17:58 17:35 09/21/2019 17:35 Discharged to Home. Impression: Paresthesia of skin. sv Condition is Stable. Discharge Instructions: Paresthesia. Prescriptions for aspirin 81 mg Oral tablet,chewable - chew 1 tablet by ORAL route once daily; 30 tablet, Folic Acid 1 mg Oral Tablet - take 1 tablet by ORAL route once daily; 30 tablet. and Forms are Work release form, Medication Reconciliation Form, Thank You Letter, Antibiotic Education, Prescription Opioid Use. Follow up: Obi Guerrier; When: 2 - 3 days; Reason: Recheck today's complaints, Continuance of care, Re-evaluation by your physician. snw
== END 2019-09-21 17:58 | disposition home or self-care (01) ==
LOC: ER 09:05
DX: R20.2 Paresthesia of skin (principal); I10 Essential (primary) hypertension; Z88.0 Allergy status to penicillin; Z88.5 Allergy status to narcotic agent
CPT/HCPCS: 93005; 85025; 80048; 36415; 85610; 82947; 85730; 84484; 70450; 71045; 70553; 70544; 70549; 96374; 99284; A9577 ×2

== ENCOUNTER 2020-06-01 10:34 | Observation (INO) | payer BC, OTHER ==
--- OUTSIDE RECORDS SUMMARY | 2020-06-01 10:37 | XMS REPORT | Summary of Care ---
:1955 Author Organization [facility] Address [address] [place] [address]- phone Encounter HQ Jeremyr_mely(FIN) [id number] Date(s): 03/16/20 - 03/16/20 [facility] [address] [place] [address]- [phone] Attending Physician: Brett Rojas MD Referring Physician: Brett Rojas MD Vital Signs No data available for this section Problem List Condition Effective Dates Status Health Status Informant Cervical radiculopathy(Confirmed) Active Diabetes(Confirmed) Active Diabetes mellitus affecting Resolved childbirth(Confirmed) Hypertension(Confirmed) Active Lumbar radiculopathy(Confirmed) Active Paresthesia(Confirmed) Active Peripheral neuropathy(Confirmed) Active Simple obesity(Confirmed) Active Allergies, Adverse Reactions, Alerts Substance Reaction Severity Status codeine Active penicillin Active Medications No data available for this section Results No data available for this section Immunizations No data available for this section Procedures No data available for this section Social History Social History Type Response Employment/School Status: Employed.1 Smoking Status Never smoker; Exposure to To bacco Smoke Unable to obtain; Cigarette Smoking Last 365 Days Unable to obtain; Reg Smoking Cessation Counseling No entered on: 10/26/19 1May release medical information to - Fern Ortiz, Daughter- Fallon Durán Assessment and Plan No data available for this section
--- OUTSIDE RECORDS SUMMARY | 2020-06-01 10:37 | XMS REPORT | Continuity of Care Document ---
:1955 Author Organization [facility] t Address [address] [place] [address] Care Team Providers Name Role Phone CrystalBrett Attending Clinician Eli MAGANA, M Attending Clinician Unavailable Anene FREIGHT CLAIM INVESTIGATOR Attending Clinician Pob1, Care Clinic Attending Clinician Unavailable Problems Condition Condition Condition Status Onset Resolution Last Treating Co mments Source Name Details Category Date Date Treatment Clinician Date Diabetes Problem Resolve 2020-05-06 Me moria mellitus d 22:17:46 l in mother Diabetes Her minor complicati mellitus ng in mother childbirth complicati (disorder) ng childbirth (disorder) Resolved Problem 05/06/2020 [facility] Cervical Problem Active 2020-05-06 Mem oria radiculopa 22:17:46 l thy Cervical Kunal n (disorder) radiculopa thy (disorder) Active Problem 05/06/2020 [facility] Diabetes Problem Active 2020-05-06 Mem oria mellitus 22:17:46 l (disorder) Diabetes He rmann mellitus (disorder) Active Problem 05/06/2020 [facility] Hypertensi Problem Active 2020-05-06 M emoria ve 22:17:46 l disorder, [place] systemic Hypertensi arterial ve (disorder) disorder, systemic arterial (disorder) Active Problem 05/06/2020 [facility] Lumbar Problem Active 2020-05-06 Memor ia radiculopa 22:17:46 l thy Lumbar Pro (disorder) radiculopa thy (disorder) Active Problem 05/06/2020 [facility] Paresthesi Problem Active 2020-05-06 M emoria a 22:17:46 l (finding) Pro Paresthesi a (finding) Active Problem 05/06/2020 [facility] Peripheral Problem Active 2020-05-06 M emoria nerve 22:17:46 l disease [place] (disorder) Peripheral nerve disease (disorder) Active Problem 05/06/2020 [facility] Simple Problem Active 2020-05-06 Memor ia obesity 22:17:46 l (disorder) Simple Herm candace obesity (disorder) Active Problem 05/06/2020 [facility] Allergies, Adverse Reactions, Alerts Allergy Allergy Status Severity Reaction(s) Onset Inactive Treating Comm ents Source Name Type Date Date Clinician codeine codeine Active Madison Mast penicill penicill Active Memori a in in rafaela Mast Social History Social Habit Start Date Stop Date Quantity Comments Source Social History 2019-09-22 2019-09-22 [facility] 15:06:14 15:06:14 Medications Ordered Filled Start Stop Current Ordering Indication Dosage Frequency Signature Comments Components Source Medication Medication Date Date Medication? Clinician (SIG) Name Name DULoxetine Yes 60 mg = 1 Me moria 60 mg oral 8-21 cap, PO, l delayed 22:56: Daily, # Kunal n release 00 30 cap, 3 capsule Refill(s), Pharmacy: [facility] #[id number], 167.64, cm, 10/26/19 14:53:00 CDT, Height, 92.727, kg, 10/26/19 14:53:00 CDT, Weight DULoxetine No = 1 cap, Mem oria 30 mg oral 7-28 PO, Daily, l delayed 14:48: # 30 cap, Mera nn release 00 0 capsule Refill(s), Pharmacy: [facility] #[id number], 167.64, cm, 10/26/19 14:53:00 CDT, Height, 92.727, kg, 10/26/19 14:53:00 CDT, Weight duloxetine Yes 30 mg = 1 Me moria 30 MG 6-03 cap, PO, l Enteric 20:56: Daily, # Kunal n Coated 00 30 cap, 1 Capsule Refill(s), [Cymbalta] Pharmacy: [facility] #[id number] baclofen 10 2020-0 Yes 10 mg = 1 M emoria mg oral 6-03 tab, PO, l tablet 20:56: BID, # 60 Kunal n 00 tab, 2 Refill(s), Pharmacy: [facility] #[id number] lisinopril 2020-0 Yes 0 Memoria 40 mg oral 6-03 Refill(s) l tablet 19:59: Metformin 2020-0 No 0 Memoria hydrochlori 6-03 Refill(s) l de 500 MG 19:59: Pro Oral Tablet 00 glimepiride 2020-0 No 0 Memori a 2 mg oral 6-03 Refill(s) l tablet 19:59: amLODIPine 2020-0 Yes 0 Memoria 10 mg oral 6-03 Refill(s) l tablet 19:59: Aspirin 81 2020-0 Yes 81 mg = 1 Me moria MG Enteric 5-29 tab, PO, l Coated 14:22: Daily, # [place] Tablet 00 90 tab, 3 Refill(s), other gabapentin 2020-0 Yes 300 mg = 1 M emoria 300 MG Oral 5-29 cap, PO, l Capsule 14:21: Bedtime, # Herm candace 00 30 cap, 3 Refill(s), Pharmacy: [facility] #[id number] pravastatin 2020-0 Yes 20 mg = 1 M emoria 20 mg oral 5-28 tab, PO, l tablet 14:59: Bedtime, # Mera nn 00 30 tab, 0 Refill(s) Lisinopril 2020-0 Yes 40 mg, PO, M emoria 5-28 Daily, 0 l 14:50: Refill(s) Amlodipine 2020-0 Yes 10 mg, PO, M emoria 5-28 Daily, 0 l 14:50: Refill(s) Metformin 2020-0 Yes 500 mg, Memor ia 5-28 PO, BID, 0 l 14:50: Refill(s) glimepiride 2020-0 Yes 2 mg, PO, M emoria 5-28 Daily, 0 l 14:50: Refill(s) Vital Signs Vital Name Observation Time Observation Value Comments Source Systolic (mm Hg) 2019-10-26 19:53:00 Trino rial [place] Diastolic (mm Hg) 2019-10-26 19:53:00 Mem orial [place] Heart Rate 2019-10-26 19:53:00 [facility] [place] Respitory Rate 2019-10-26 19:53:00 Memori al Pro Height 2019-10-26 19:53:00 167.64 cm [facility] [place] Weight 2019-10-26 19:53:00 [facility] Pro BMI Calculated 2019-10-26 19:53:00 Memori al [place] Systolic (mm Hg) 2019-09-28 20:25:00 Trino rial Pro Diastolic (mm Hg) 2019-09-28 20:25:00 Mem orial [place] Heart Rate 2019-09-28 20:25:00 [facility] Por Respitory Rate 2019-09-28 20:25:00 Memori al [place] Height 2019-09-28 20:25:00 167.64 cm [facility] [place] Weight 2019-09-28 20:25:00 [facility] [place] BMI Calculated 2019-09-28 20:25:00 Memori al Pro Systolic (mm Hg) 2019-09-23 13:29:00 Trino rial Pro Diastolic (mm Hg) 2019-09-23 13:29:00 Mem orial Pro Heart Rate 2019-09-23 13:29:00 [facility] Pro Respitory Rate 2019-09-23 13:29:00 Memori al Pro Height 2019-09-23 13:29:00 167.64 cm [facility] Pro Weight 2019-09-23 13:29:00 [facility] [place] BMI Calculated 2019-09-23 13:29:00 Memori al [place] Temperature Oral (F) 2019-09-23 13:29:00 97.9 F [facility] Systolic (mm Hg) 2019-09-22 13:28:00 Trino rial Pro Diastolic (mm Hg) 2019-09-22 13:28:00 Mem orial Pro Heart Rate 2019-09-22 13:28:00 [facility] [place] Respitory Rate 2019-09-22 13:28:00 Memori al Pro Temperature Oral (F) 2019-09-22 13:28:00 98.7 F [facility] Height 2019-09-22 13:28:00 167.64 cm [facility] [place] Weight 2019-09-22 13:28:00 [facility] [place] BMI Calculated 2019-09-22 13:28:00 Mario Dinero Procedures This patient has no known procedures. Encounters Start End Encounter Admission Attending Care Care Encounter Source Date/Time Date/Time Type Type Clinicians Facility Department ID 2020-05-04 2020-05-04 Outpatient Crystal, MHMISCHER MHMISCHER [id number] 09:15:00 09:15:00 Brett Thien 2020-03-16 2020-03-16 Outpatient Crystal, MHMISCHER MHMISCHER [id number] 15:45:00 15:45:00 Brett Thien 2019-12-21 2019-12-21 Outpatient Crystal, MHMISCHER MHMISCHER [id number] 13:30:00 13:30:00 Rbett Thien 2019-10-26 2019-10-26 Outpatient Crystal, MHMISCHER MHMISCHER [id number] 14:45:00 23:59:59 Brett 05 Thien 2019-10-26 2019-10-26 Outpatient Crystal, MHMISCHER MHMISCHER [id number] 14:45:00 14:45:00 Brett 03 Thien 2019-09-28 2019-09-28 Outpatient Crystal, MHMISCHER MHMISCHER [id number] 15:15:00 23:59:59 Brett Thien 2019-09-23 2019-09-23 Outpatient Crystal, MHMISCHER MHMISCHER [id number] 08:15:00 23:59:59 Brett Thien 2019-09-22 2019-09-22 Outpatient Crystal, MHMISCHER MHMISCHER [id number] 10:00:00 23:59:59 Brett Thien 2019-08-04 2019-08-04 Telephone JOSE M Benitez [id number] 00:00:00 00:00:00 Amita HARRIS [id number] [facility] [id number] [facility] 2019-08-04 2019-08-04 Telephone JOSE M Long [id number] 00:00:00 00:00:00 Silvia HARRIS [id number] [facility] [id number] 2019-08-02 2019-08-02 Urgent Pob1, Acute [facility] [id number] 08:02:14 08:22:14 [facility] [id number] [place] [id number] [facility] [id number] nal [address] Results This patient has no known results.
--- OUTSIDE RECORDS SUMMARY | 2020-06-01 10:37 | XMS REPORT | Summary of Care ---
:1955 Author Organization [facility] Address [address] [place] [address]- phone Encounter HQ Jeremyr_mely(FIN) [id number] Date(s): 05/04/20 - 05/04/20 [facility] [address] [place] [address]- [phone] Attending Physician: Brett Rojas MD Referring Physician: [...]
--- OUTSIDE RECORDS SUMMARY | 2020-06-01 10:37 | XMS REPORT | Continuity of Care Document ---
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/06/2020 Mische r disorder, Neuro systemic arterial (disorder) Lumbar Active Problem 05/06/2020 [facility] radiculopathy Neuro (disorder) Paresthesia Active Problem 05/06/2020 [facility] (finding) Neuro Peripheral nerve Active Problem 05/06/2020 Mi umang disease Neuro (disorder) Simple obesity Active Problem 05/06/2020 Misc her (disorder) Neuro Medications Medication Details Route Status Patient Ordering Order Source Instructions Provider Date DULoxetine 60 mg 60 mg = 1 Active Misch er oral delayed cap, PO, 020 Neuro release capsule Daily, # 30 cap, 3 Refill(s), Pharmacy: [facility] #[id number], 167.64, cm, 10/26/19 14:53:00 CDT, Height, 92.727, kg, 10/26/19 14:53:00 CDT, Weight DULoxetine 30 mg = 1 cap, PO, No Longer Mischer oral delayed Daily, # 30 Active 020 Neuro release capsule cap, 0 Refill(s), Pharmacy: [facility] #[id number], 167.64, cm, 10/26/19 14:53:00 CDT, Height, 92.727, kg, 10/26/19 14:53:00 CDT, Weight duloxetine 30 MG 30 mg = 1 Active Misch er Enteric Coated cap, PO, 020 Neuro Capsule Daily, # 30 [Cymbalta] cap, 1 Refill(s), Pharmacy: [facility] #[id number] baclofen 10 mg 10 mg = 1 Active Mischer oral tablet tab, PO, 020 Neuro BID, # 60 tab, 2 Refill(s), Pharmacy: [facility] #[id number] lisinopril 40 mg 0 Refill(s) Active Mis sylvia oral tablet 020 Neuro Metformin 0 Refill(s) Inactive Mischer hydrochloride 020 Neuro 500 MG Oral Tablet glimepiride 2 mg 0 Refill(s) Inactive Mi umang oral tablet 020 Neuro amLODIPine 10 mg 0 Refill(s) Active Mis sylvia oral tablet 020 Neuro Aspirin 81 MG 81 mg = 1 Active [facility]ischer Enteric Coated tab, PO, 020 Neuro Tablet Daily, # 90 tab, 3 Refill(s), other gabapentin 300 300 mg = 1 Active Mische r MG Oral Capsule cap, PO, 020 Neuro Bedtime, # 30 cap, 3 Refill(s), [id number] pravastatin 20 20 mg = 1 Active Mischer mg oral tablet tab, PO, 020 Neuro Bedtime, # 30 tab, 0 Refill(s) Lisinopril 40 mg, PO, Active Mischer Daily, 0 020 Neuro Refill(s) Amlodipine 10 mg, PO, Active Mischer Daily, 0 020 Neuro Refill(s) Metformin 500 mg, PO, Active Mischer BID, 0 020 Neuro Refill(s) glimepiride 2 mg, PO, Active Mischer Daily, 0 020 Neuro Refill(s) Allergies, Adverse Reactions, Alerts Substance Category Reaction Severity Reaction Status Date Comments S ource type Reported codeine Assertion Drug Active Mische r allergy Neuro penicillin Assertion Drug Active Mis sylvia allergy Neuro Immunizations No Data Provided for This Section Results No Data Provided for This Section Pathology Reports No Data Provided for This Section Diagnostic Reports No Data Provided for This Section Consultation Notes No Data Provided for This Section Discharge Summaries No Data Provided for This Section History and Physicals No Data Provided for This Section Vital Signs Vital Sign Value Date Comments Source Systolic (mm Hg) 152 10/26/2019 [facility] Vincent ro Diastolic (mm Hg) 80 10/26/2019 [facility] Ne uro Heart Rate 76 10/26/2019 [facility] Respitory Rate 16 10/26/2019 [facility] Height 167.64 cm 10/26/2019 [facility] Weight 92.727 10/26/2019 [facility] BMI Calculated 33 10/26/2019 [facility] Systolic (mm Hg) 154 09/28/2019 [facility] Vincent ro Diastolic (mm Hg) 81 09/28/2019 [facility] uro Heart Rate 85 09/28/2019 [facility] Respitory Rate 16 09/28/2019 [facility] Height 167.64 cm 09/28/2019 [facility] Weight 96.818 09/28/2019 [facility] BMI Calculated 34.45 09/28/2019 [facility] Systolic (mm Hg) 129 09/23/2019 [facility] Vincent ro Diastolic (mm Hg) 72 09/23/2019 [facility] 16 09/23/2019 [facility] Height 167.64 cm 09/23/2019 [facility] Weight 100 09/23/2019 [facility] BMI Calculated 35.58 [facility]/23[facility] Temperature Oral (F) 97.9 F 09/23/2019 [facility] Systolic (mm Hg) 128 09/22/2019 [facility] Vincent ro Diastolic (mm Hg) 74 09/22/2019 [facility] uro Heart Rate 74 [facility] Resp[facility] Rate 16 09/22[facility] Temperature Oral (F) 98.7 F 09/22/2019 [facility] Height 167.64 cm [facility]/22[facility] Weight 93.636 09/22/2019 [facility] BMI Calculated 33.32 09/22/2019 [facility] En[facility]ters Location Location Encounter Encounter Reason Attending ADM MT Stat us Source Details Type Number For Provider Date Date Visit Outpatient [id number] Brett 09/21 Active [facility] /2019 [place] [facility] [id number] Brett 09/21 09[facility] [place] [facility] [id number] Brett 09/22 Active [facility] /2019 [facility] Outpatient [id number] Brett 09/22 09/[facility] [place] [facility] [id number] Brett 09/27 [facility] Out[facility] [id number] Brett 09/27 09/28 [facility] [place] /2019 [facility] [place] [facility] [id number] Brett 10/25 [facility]2020 [facility] Out[facility] [id number] Brett 10/25 [facility] [id number] Brett 10/25 10/25 [facility] [place] /2019 [facility] [place] [facility] [id number] Brett 10/25 10/26 [facility] [place] /2019 [facility] [place] Out[facility] [id number] Brett 12/20 [facility] [id number] Brett 12/20 12/20 [facility] [place] [facility] [place] [facility] [id number] Brett 03/16 [facility] [place] [facility] [id number] Brett 03/16 03/16 [facility] [place] [facility] [place] [facility] [id number] Brett 05/04 Active [facility] [id number] Brett 05/04 05/04 [facility] [place] /2020 /2020 [facility] [place] [facility] [id number] Brett 06/19 Active [facility] [facility] Procedures No Data Provided for This Section Assessment and Plan No Data Provided for This Section Plan of Care No Data Provided for This Section Social History Social History Date Source Social History TypeResponse 09/22/2019 [facility] Employment/School Status: Employed.1 Smoking Status Never smoker; Exposure to Tobacco Smoke Unable to obtain; Cigarette Smoking Last 365 Days Unable to obtain; Reg Smoking Cessation Counseling No entered on: 10/26/19 1May release medical information to - Fern Ortiz, Daughter- Fallon Durán Family History No Data Provided for This Section Advance Directives No Data Provided for This Section Functional Status No Data Provided for This Section
--- NOTE | 2020-06-01 11:16 | RAD REPORT ---
EXAM DESCRIPTION: RAD - Chest Single View - 06/01/2020 10:57 am CLINICAL HISTORY: CHEST PAIN COMPARISON: December 2018 TECHNIQUE: AP portable chest image was obtained 06/01/2020 10:57 am . FINDINGS: Lungs are clear. Heart and vasculature are normal. No measurable pleural effusion and no p neumothorax. No acute bony abnormality seen. No acute aortic findings suspected. IMPRESSION: No acute cardiopulmonary process. No significant change from comparison study.
[2020-06-01 11:24] LABS: Protime INR 0.98
[2020-06-01 11:25] LABS: Absolute Lymphocytes (CBC) 1.4 K/uL (0.7-4.9); Basophils % 0.6 % (0-1.3); Hematocrit 41.7 % (39.6-49.0); MPV 8.6 fL (7.6-11.3); RBC Red Blood Cell Count 4.86 M/uL (4.33-5.43)
[2020-06-01 11:37] LABS: BUN Blood Urea Nitrogen 15 mg/dL (7-18); Bicarbonate 28 mmol/L (21-32); Glucose Level 119 mg/dL (74-106); Magnesium 2.2 mg/dL (1.8-2.4); NT PRO-BNP 12 pg/mL (<125); Potassium 4.2 mmol/L (3.5-5.1); Sodium Level 139 mmol/L (136-145); Troponin (Emerg Dept Use Only) < 0.02 ng/mL (0.0-0.045)
[2020-06-01] MEDS ORDERED: ASPIRIN 81 MG CHEWABLE TABLET ONE (11:53)
--- NOTE | 2020-06-01 11:58 | EDPHYS ---
Physician Documentation [facility] Name: Alec Ortiz Jr Age: 65 yrs Sex: Male : 1955 Arrival Date: 06/01/2020 Time: 10:36 Bed 7 Private MD: Rome Bush R ED Physician Vlad Hunter HPI: 06/01 10:50 This 65 yrs old Male presents to ER via Ambulatory with complaints of Chest rn Pain. 10:50 The patient or guardian reports chest pain that is located primarily in the substernal rn area. Onset: 2 week(s) ago. The pain radiates to left neck. The chest pain is described as a heaviness, a pressure. Duration: The patient or guardian reports multiple episodes, that are intermittent, the episodes last approximately 3 hour(s). Modifying factors: The symptoms are alleviated by nothing. the symptoms are aggravated by exertion. Severity of pain: At its worst the pain was moderate in the emergency department the pain has improved. The patient has not experienced similar symptoms in the past. The patient has been recently seen by a physician:. Sent here by cardiology for chest pain, intermittent, failed stress test today, plan to cath patient. . Historical: - Allergies: 10:49 Codeine; ss 10:49 PENICILLINS; ss - Home Meds: 12:52 glimepiride 2 mg Oral tab 1 tab once daily [Active]; lisinopril 40 mg Oral tab 1 tab jl7 once daily [Active]; metformin 500 mg Oral tab 1 tab 2 times per day [Active]; amlodipine 10 mg tab 1 tab once daily [Active]; pravastatin 20 mg oral tab 1 tab once daily [Active]; Cymbalta 30 mg oral cpDR 1 cap once daily [Active]; baclofen 10 mg Oral tab [Active]; gabapentin 300 mg oral cap [Active]; - PMHx: 10:49 Diabetes - NIDDM; Hypertension; ss - PSHx: 10:49 Tonsillectomy; Knee surgery; pilonidal cyst; Cholecystectomy; ss - Immunization history:: Adult Immunizations up to date. - Social history:: Smoking status: Patient denies any tobacco usage or history of. - Family history:: not pertinent. - Hospitalizations: : No recent hospitalization is reported. ROS: 10:50 Constitutional: Negative for fever, chills, and weight loss, Eyes: Negative for injury, rn pain, redness, and discharge, Neck: Negative for injury, pain, and swelling, Cardiovascular: Negative for palpitations, and edema, Respiratory: Negative for cough, wheezing, and pleuritic chest pain, Abdomen/GI: Negative for abdominal pain, nausea, vomiting, diarrhea, and constipation, Back: Negative for injury and pain, MS/Extremity: Negative for injury and deformity, Skin: Negative for injury, rash, and discoloration, Neuro: Negative for headache, weakness, numbness, tingling, and seizure. Exam: 10:50 Constitutional: This is a well developed, well nourished patient who is awake, alert, rn and in no acute distress. Head/Face: Normocephalic, atraumatic. Cardiovascular: Regular rate and rhythm. No pulse deficits. Respiratory: Speaking full sentences. No increased work of breathing, no retractions or nasal flaring. Abdomen/GI: Soft, non-tender Skin: Warm, dry MS/ Extremity: Pulses equal, no cyanosis. Neuro: Awake and alert, GCS 15 10:52 ECG was reviewed by the Attending Physician. rn Vital Signs: 10:46 BP 155 / 83; Pulse 84; Resp 17; Temp 98.0(TE); Pulse Ox 98% ; Weight 97.52 kg; Height 5 ss ft. 6 in. (167.64 cm); Pain 1/10; 11:42 BP 125 / 74; Pulse 72; Resp 15; Pulse Ox 98% ; Pain 2/10; jl7 12:10 BP 123 / 74; Pulse 65; Resp 15; Pulse Ox 98% ; jl7 13:04 BP 133 / 82; Pulse 76; Resp 15; Pulse Ox 100% ; jl7 14:00 BP 114 / 69; Pulse 57; Resp 15; Pulse Ox 98% ; jl7 15:00 BP 102 / 62; Pulse 56; Resp 14; Pulse Ox 100% ; jl7 16:15 BP 134 / 72; Pulse 81; Resp 17; Pulse Ox 100% ; jl7 17:00 BP 118 / 69; Pulse 61; Resp 17; Pulse Ox 100% ; jl7 18:00 BP 128 / 70; Pulse 79; Resp 15; Pulse Ox 98% ; jl7 10:46 Body Mass Index 34.70 (97.52 kg, 167.64 cm) ss MDM: 10:36 Patient medically screened. rn 11:56 Differential diagnosis: acute myocardial infarction, coronary artery disease stable rn angina, unstable angina. The patient was given aspirin in the Emergency Department. Data reviewed: vital signs, nurses notes, lab test result(s), EKG, radiologic studies, plain films, and as a result, I will admit patient. Counseling: I had a detailed discussion with the patient and/or guardian regarding: the historical points, exam findings, and any diagnostic results supporting the discharge/admit diagnosis, lab results, radiology results, the need for further work-up and treatment in the hospital. Admission orders: after a detailed discussion of the patient's condition and case, the admit orders are written by me. Special discussion:. ED course: Neg trop, no ischemia on ECG, spoke with Dr. Duarte, wants patient admitted for observation and serial markers. . 06/01 10:43 Order name: Basic Metabolic Panel; Complete Time: 11:39 rn 06/01 10:43 Order name: CBC with Diff; Complete Time: 11:27 rn 06/01 10:43 Order name: Magnesium; Complete Time: 11:39 rn 06/01 10:43 Order name: NT PRO-BNP; Complete Time: 11:39 rn 06/01 10:43 Order name: PT-INR; Complete Time: 11:27 rn 06/01 10:43 Order name: Troponin (emerg Dept Use Only); Complete Time: 11:39 rn 06/01 10:43 Order name: XRAY Chest (1 view); Complete Time: 11:27 rn 06/01 10:43 Order name: EKG; Complete Time: 10:43 rn 06/01 12:44 Order name: COVID-19 : Document "Date of Symptom Onset" if Symptomatic. eb 06/01 12:44 Order name: CORONAVIRUS EDTX 06/01 14:44 Order name: SARS-COV-2 RT PCR EDTX 06/01 16:38 Order name: Glucose, Ancillary Testing EDTX 06/01 17:13 Order name: Troponin I EDTX 06/01 10:43 Order name: Cardiac monitoring; Complete Time: 10:53 rn 06/01 10:43 Order name: EKG - Nurse/Tech; Complete Time: 10:53 rn 06/01 10:43 Order name: IV Saline Lock; Complete Time: 11:16 rn 06/01 10:43 Order name: Labs collected and sent; Complete Time: : rn 06/01 10:43 Order name: O2 Per Protocol; Complete Time: : rn 06/01 10:43 Order name: O2 Sat Monitoring; Complete Time: : rn 06/01 12:58 Order name: CONS Physician Consult EDTX 06/01 15:56 Order name: Diet Ada 2000 Ollie; Complete Time: 15:57 jl7 EC:52 Rate is 71 beats/min. Rhythm is regular. QRS [place] is Normal. NH interval is normal. QRS rn interval is normal. QT interval is normal. No Q waves. T waves are Normal. No ST changes noted. Clinical impression: Normal ECG. Interpreted by me. Reviewed by me. Administered Medications: 11:40 Drug: Aspirin Chewable Tablet 324 mg Route: PO; jl7 12:11 Follow up: Response: No adverse reaction jl7 Disposition: 06/01/20 11:57 Hospitalization ordered by Daniel Hunter for Observation. Preliminary diagnosis are Chest pain, unspecified, Unstable angina. - Bed requested for Telemetry/MedSurg (observation). - Status is Observation. jl7 - Condition is Stable. - Problem is new. - Symptoms have improved. Signatures: Dispatcher [employer] EDAdela Salvador RN Linda Alvarenga RN RN iw Nieto, Roman, MD MD rn Smirch, Shelby, Sonya Samayoa RN RN RN jl7 Corrections: (The following items were deleted from the chart) 17:08 11:57 Hospitalization Ordered by Daniel Hunter MD for Observation. Preliminary iw diagnosis is Chest pain, unspecified; Unstable angina. Bed requested for Telemetry/MedSurg (observation). Status is Observation. Condition is Stable. Problem is new. Symptoms have improved. rn 18:09 17:08 06/01/2020 11:57 Hospitalization Ordered by Daniel Hunter MD for Observation. dw Preliminary diagnosis is Chest pain, unspecified; Unstable angina. Bed requested for [facility] ER HOLD. Status is Observation. Condition is Stable. Problem is new. Symptoms have improved. iw 18:47 18:09 06/01/2020 11:57 Hospitalization Ordered by Daniel Hunter MD for Observation. jl7 Preliminary diagnosis is Chest pain, unspecified; Unstable angina. Bed requested for Telemetry/MedSurg (observation). Status is Observation. Condition is Stable. Problem is new. Symptoms have improved. dw
--- NOTE | 2020-06-01 11:58 | ER ---
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 Pt reports intermittent CP x 1 month. Coronavirus screen: Client denies travel out of the [place] in the last 14 days. Ebola Screen: Patient denies exposure to infectious person. Patient denies travel to an Ebola-affected area in the 21 days before illness onset. Initial Sepsis Screen: Does the patient meet any 2 criteria? No. Patient's initial sepsis screen is negative. Does the patient have a suspected source of infection? No. Patient's initial sepsis screen is negative. Risk Assessment: Do you want to hurt yourself or someone else? Patient reports no desire to harm self or others. Onset of symptoms was April 2020. 10:46 Method Of Arrival: Ambulatory ss 10:46 Acuity: WILLA 3 ss Historical: - Allergies: 10:49 Codeine; ss 10:49 PENICILLINS; ss - Home Meds: 12:52 glimepiride 2 mg Oral tab 1 tab once daily [Active]; lisinopril 40 mg Oral tab 1 tab jl7 once daily [Active]; metformin 500 mg Oral tab 1 tab 2 times per day [Active]; amlodipine 10 mg tab 1 tab once daily [Active]; pravastatin 20 mg oral tab 1 tab once daily [Active]; Cymbalta 30 mg oral cpDR 1 cap once daily [Active]; baclofen 10 mg Oral tab [Active]; gabapentin 300 mg oral cap [Active]; - PMHx: 10:49 Diabetes - NIDDM; Hypertension; ss - PSHx: 10:49 Tonsillectomy; Knee surgery; pilonidal cyst; Cholecystectomy; ss - Immunization history:: Adult Immunizations up to date. - Social history:: Smoking status: Patient denies any tobacco usage or history of. - Family history:: not pertinent. - Hospitalizations: : No recent hospitalization is reported. Screenin:30 Abuse screen: Denies threats or abuse. Denies injuries from another. Nutritional jl7 screening: No deficits noted. Tuberculosis screening: No symptoms or risk factors identified. Fall Risk IV access (20 points). Total Astudillo Fall Scale indicates No Risk (0-24 pts). Assessment: 11:15 General: Appears in no apparent distress. uncomfortable, Behavior is calm, cooperative, jl7 appropriate for age. Pain: Complains of pain in mid-sternal area Pain does not radiate. Pain currently is 2 out of 10 on a pain scale. Quality of pain is described as pressure, Pain began suddenly, Is continuous. Neuro: Level of Consciousness is awake, alert, obeys commands, Oriented to person, place, time, situation. Cardiovascular: Heart tones present Patient's skin is warm and dry. Respiratory: Airway is patent Respiratory effort is even, unlabored, Respiratory pattern is regular, symmetrical, Breath sounds are clear bilaterally. GI: No signs and/or symptoms were reported involving the gastrointestinal system. Abdomen is non-distended. Derm: Skin is pink, warm \T\ dry. 12:10 Reassessment: Patient appears in no apparent distress at this time. No changes from jl7 previously documented assessment. Patient and/or family updated on plan of care and expected duration. Pain level reassessed. Patient is alert, oriented x 3, equal unlabored respirations, skin warm/dry/pink. 13:00 Reassessment: Patient appears in no apparent distress at this time. No changes from jl7 previously documented assessment. Patient and/or family updated on plan of care and expected duration. Pain level reassessed. Patient is alert, oriented x 3, equal unlabored respirations, skin warm/dry/pink. 16:28 Reassessment: Pt requesting to eat, BGL 75, diet tray provided. jl7 Vital Signs: 10:46 BP 155 / 83; Pulse 84; Resp 17; Temp 98.0(TE); Pulse Ox 98% ; Weight 97.52 kg; Height 5 ss ft. 6 in. (167.64 cm); Pain 1/10; 11:42 BP 125 / 74; Pulse 72; Resp 15; Pulse Ox 98% ; Pain 2/10; jl7 12:10 BP 123 / 74; Pulse 65; Resp 15; Pulse Ox 98% ; jl7 13:04 BP 133 / 82; Pulse 76; Resp 15; Pulse Ox 100% ; jl7 14:00 BP 114 / 69; Pulse 57; Resp 15; Pulse Ox 98% ; jl7 15:00 BP 102 / 62; Pulse 56; Resp 14; Pulse Ox 100% ; jl7 16:15 BP 134 / 72; Pulse 81; Resp 17; Pulse Ox 100% ; jl7 17:00 BP 118 / 69; Pulse 61; Resp 17; Pulse Ox 100% ; jl7 18:00 BP 128 / 70; Pulse 79; Resp 15; Pulse Ox 98% ; jl7 10:46 Body Mass Index 34.70 (97.52 kg, 167.64 cm) ED Course: 10:36 Patient arrived in ED. ag5 10:36 Rome Bush MD is Private Physician. ag5 10:36 Vlad Hunter MD is Attending Physician. rn 10:49 Triage completed. ss 10:49 Arm band placed on right wrist. ss 10:53 Patient has correct armband on for positive identification. Placed in gown. Bed in low mh5 position. Call light in reach. Side rails up X 1. radiation monitor on. Pulse ox on. NIBP on. 10:53 EKG done, by ED staff, reviewed by Vlad Hunter MD. 5 10:57 XRAY Chest (1 view) In Process Unspecified. EDMS 11:14 Initial lab(s) drawn, by ut, sent to lab. Inserted saline lock: 20 gauge in left wrist, 5 using aseptic technique. Blood collected. 11:15 Basic Metabolic Panel Sent. mh5 11:15 CBC with Diff Sent. mh5 11:15 Magnesium Sent. mh5 11:15 NT PRO-BNP Sent. mh5 11:15 PT-INR Sent. mh5 11:15 Troponin (emerg Dept Use Only) Sent. mh5 11:17 Basic Metabolic Panel Sent. mh5 11:17 CBC with Diff Sent. mh5 11:17 Magnesium Sent. mh5 11:17 NT PRO-BNP Sent. mh5 11:17 PT-INR Sent. mh5 11:17 Troponin (emerg Dept Use Only) Sent. mh5 11:22 Sonya Tavares, RN is Primary Nurse. jl7 11:57 Daniel Hunter MD is Hospitalizing Provider. rn 12:30 Patient maintains SpO2 saturation greater than 95% on room air. jl7 12:55 CORONAVIRUS Sent. [facility] 12:55 COVID swab sent to lab. [facility] 16:31 No provider procedures requiring assistance completed. Patient admitted, IV remains in [facility] place. intact, No redness/swelling at site. Administered Medications: 11:40 Drug: Aspirin Chewable Tablet 324 mg Route: PO; [facility] 12:11 Follow up: Response: No adverse reaction [facility] Outcome: 11:57 Decision to Hospitalize by Provider. rn 18:46 Admitted to Tele accompanied by tech, via wheelchair, room 212, with chart, Report jl called to IZZY Haji 18:46 Condition: stable 18:46 Discharge instructions given to patient, Instructed on the need for admit, Demonstrated understanding of instructions. 18:47 Patient left the ED. [facility] Signatures: Dispatcher [employer] EDMS Vlad Hunter MD MD rn Smirch, Shelby, RN RN ss Martinez, Maria [facility] Sonya Tavares RN RN 7 Alia Islas [facility]
--- NOTE | 2020-06-01 13:00 | P.HP ---
Certification for Inpatient Patient admitted to: Observation With expected LOS: <2 Midnights Practitioner: I am a practitioner with admitting privileges, knowledge of patient current condition, hospital course, and medical plan of care. 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 Patient reports intermittent chest pain over the past 1-2 weeks. Midsternal, sharp / cramping pain, can radiate to arms / neck at times. Relieved by nitroglycerin. He otherwise reports being in his usual state of health - no recent illness, no fever/chills, no SOB, no abdominal pain, no lower extremity swelling. In the ED, workup was rather unremarkable. Troponin negative. Discussed with Cardiology and recommended admission and trending troponin, patient will need cardiac catheterization. Allergies Penicillins Allergy (Severe, Verified 11/25/16 09:06) CONVULSIONS codeine [Codeine] Allergy (Intermediate, Verified 11/25/16 09:06) AMS Home Medications: Metformin HCl [Glucophage*] 500 mg PO BID 11/04/13 Glimepiride [Amaryl*] 1 tab PO DAILY 07/07/18 Amlodipine Besylate 10 mg PO DAILY 06/01/20 Duloxetine HCl [Cymbalta] 30 mg PO DAILY 06/01/20 Glimepiride 2 mg PO DAILY 06/01/20 Insulin Glargine,Hum.rec.anlog [Sowmyaaglhannah Ruizpen U-100] 22 unit SQ DAILY 06/01/20 Lisinopril [Zestril] 40 mg PO DAILY 06/01/20 Pravastatin Sodium 20 mg PO DAILY 06/01/20 - Past Medical/Surgical History Diabetic: Yes -: DM -: HTN -: Diverticulitis -: anxiety -: behind right ear -: back surgery -: cholecystectomy -: hernia surgery x2 -: pilonidal cyst - Family History Mother -: Diabetes, Kidney disease Notes: glaucoma, cholecystectomy Father -: Heart disease, Diabetes, Kidney disease Notes: glaucoma - Social History Alcohol use: No CD- Drugs: No Caffeine use: Yes Place of Residence: Home Review of Systems 10-point ROS is otherwise unremarkable Physical Examination - Studies Laboratory Data (last 24 hrs) 06/01/20 11:10: PT 11.3, INR 0.98 06/01/20 11:10: WBC 5.40, Hgb 13.8, Hct 41.7, Plt Count 234 06/01/20 11:10: Sodium 139, Potassium 4.2, BUN 15, Creatinine 0.73, Glucose 119 H, Magnesium 2.2 Assessment and Plan - Advance Directives Does patient have a Living Will: No Does patient have a Durable POA for Healthcare: No Physician Review Additional Text: Physical exam: Gen: NAD HEENT: sclera anicteric, normal conjunctiva CV: RRR, no murmur/rub/gallop Pulm: CTAB, no w/r/r Abd: soft, NTND Ext: no edema, no rash Neuro: AAOx3, str 5/5 throughout Problem List: Unstable Angina HTN DM2, insulin dependent Anxiety -will bring patient in, med/surg, trend trop -therapeutic lovenox -cardiology consulted -will likely need cardiac cath -reports last had chest pain on arrival to ED - resolved with nitroglycerin -aspirin, BB, nitroglycerin ordered -obtain and restart home medications as appropriate. VTE: lovenox Dispo: trend trop, possible cardiac cath (however not available until Thursday) Time Spent Managing Pts Care (In Minutes): 60
[2020-06-01] MEDS ORDERED: NITROGLYCERIN 0.4 MG/TAB SL PRN (16:00)
[2020-06-01] MEDS ORDERED: ONDANSETRON 4 MG/2 ML VIAL IV PRN (16:00)
[2020-06-01] MEDS: INSULIN -REGULAR HUMAN 50 UNIT/0.5 ML ML SQ SCH ×2 (16:30→21:00)
[2020-06-01 21:28] VITALS: BMI 33.5
[2020-06-02] MEDS: METOPROLOL TAR 25 MG TAB PO SCH ×3 (00:03→17:34)
[2020-06-02] MEDS: GABAPENTIN 300 MG CAP PO SCH ×2 (00:03→20:55)
[2020-06-02] MEDS: ENOXAPARIN 80 MG/0.8 ML SQ SCH ×3 (00:04→20:51)
[2020-06-02 04:24] LABS: Basophils % 0.8 % (0-1.3); Hematocrit 41.8 % (39.6-49.0); Lymphocytes % 28.3 % (15.3-44.8); MPV 8.6 fL (7.6-11.3); RBC Red Blood Cell Count 4.84 M/uL (4.33-5.43)
[2020-06-02 04:52] LABS: Potassium 4.2 mmol/L (3.5-5.1)
[2020-06-02] MEDS: INSULIN -REGULAR HUMAN 50 UNIT/0.5 ML ML SQ SCH ×4 (07:30→20:53)
[2020-06-02] MEDS: ASPIRIN EC 81 MG TAB PO SCH (09:57)
--- NOTE | 2020-06-02 17:55 | P.PN ---
Subjective Date of Service: 06/02/20 Chief Complaint: Unstable Angina, failed outpatient stress test Subjective: Improving (No chest pain since yesterday evening, feeling well, without complaints) Review of Systems 10-point ROS is otherwise unremarkable Physical Examination - Vital Signs Temperature: 97.8 F Blood Pressure: 136/75 Pulse: 59 Respirations: 17 Pulse Ox (%): 100 Assessment & Plan Physician Review Additional Text: Physical exam: Gen: NAD HEENT: sclera anicteric, normal conjunctiva CV: RRR, no murmur/rub/gallop Pulm: CTAB, no w/r/r Abd: soft, NTND Ext: no edema, no rash Neuro: AAOx3 Problem List: Unstable Angina HTN DM2, insulin dependent Anxiety -troponin negative, continue therapeutic Lovenox, cardiology consulted, recommend cardiac catheterization given symptoms, failed stress test with EKG changes -patient [facility] until he gets cardiac catheterization, which will be Thursday -had chest pain overnight -aspirin, BB, nitroglycerin ordered VTE: lovenox Dispo: cardiac cath (however not available until Thursday) Time Spent Managing Pts Care (In Minutes): 35
[2020-06-02] MEDS ORDERED: D50W 25 GM/50 ML SYRINGE IV PRN (20:15)
[2020-06-02] MEDS ORDERED: GLUCAGON 1 MG/VIAL IM PRN (20:15)
[2020-06-02] MEDS: INSULIN GLARGINE 100 UNITS/ML SQ SCH (20:51)
[2020-06-02] MEDS ORDERED: TRAMADOL HCL 50 MG TAB PO PRN (22:13)
[2020-06-02] MEDS ORDERED: DOCUSATE NA 100 MG CAP PO PRN (22:13)
[2020-06-03] MEDS: METOPROLOL TAR 25 MG TAB PO SCH ×2 (05:40→17:04)
[2020-06-03] MEDS: INSULIN -REGULAR HUMAN 50 UNIT/0.5 ML ML SQ SCH ×4 (07:30→20:58)
[2020-06-03] MEDS ORDERED: AMLODIPINE 10 MG TAB PO SCH (09:00)
[2020-06-03] MEDS: DULOXETINE 30 MG CAP PO SCH (09:59)
[2020-06-03] MEDS: METFORMIN HCL 500 MG TAB PO SCH ×2 (10:00→16:23)
[2020-06-03] MEDS: GLIMEPIRIDE 2 MG TABLET PO SCH (10:00)
[2020-06-03] MEDS: ASPIRIN EC 81 MG TAB PO SCH (10:00)
[2020-06-03] MEDS: ENOXAPARIN 80 MG/0.8 ML SQ SCH ×2 (10:00→20:57)
--- NOTE | 2020-06-03 10:31 | P.PN ---
Subjective Date of Service: 06/03/20 Chief Complaint: Unstable Angina, failed outpatient stress test Subjective: No new changes (reports 2 episodes overnight, chest pressure / SOB lasting a few minutes while laying in bed. no alerts overnight on telemetry. feels well this morning. asking for a burger for dinner tonight) Review of Systems 10-point ROS is otherwise unremarkable Physical Examination - Vital Signs Temperature: 97.3 F Blood Pressure: 115/70 Pulse: 70 Respirations: 17 Pulse Ox (%): 98 Assessment & Plan Physician Review Additional Text: Physical exam: Gen: NAD HEENT: sclera anicteric, normal conjunctiva CV: RRR, no murmur Pulm: CTAB, no w/r/r Abd: soft, NTND Ext: no edema, no rash Problem List: Unstable Angina HTN DM2, insulin dependent Anxiety -troponin negative, continue therapeutic Lovenox, cardiology consulted, for cardiac cath tomorrow - continues with chest pain/pressure -had chest pain/pressure overnight again, not lasting as long, not as severe (2 /10) -aspirin, BB, nitroglycerin ordered -NPO after midnight VTE: therapeutic lovenox Dispo: pending cardiac cath tomorrow Time Spent Managing Pts Care (In Minutes): 35
[2020-06-03] MEDS: GABAPENTIN 300 MG CAP PO SCH (20:57)
[2020-06-03] MEDS: INSULIN GLARGINE 100 UNITS/ML SQ SCH (20:58)
[2020-06-04 05:34] LABS: Hematocrit 41.2 % (39.6-49.0); MPV 8.6 fL (7.6-11.3); RBC Red Blood Cell Count 4.83 M/uL (4.33-5.43)
[2020-06-04] MEDS: METOPROLOL TAR 25 MG TAB PO SCH ×2 (05:44→17:56)
[2020-06-04 05:53] LABS: BUN Blood Urea Nitrogen 13 mg/dL (7-18); Bicarbonate 30 mmol/L (21-32); Glucose Level 127 mg/dL (74-106); Magnesium 2.1 mg/dL (1.8-2.4); Phosphorus 3.4 mg/dL (2.5-4.9); Potassium 4.4 mmol/L (3.5-5.1); Sodium Level 138 mmol/L (136-145)
[2020-06-04] MEDS: ASPIRIN EC 81 MG TAB PO SCH (06:05)
[2020-06-04] MEDS: INSULIN -REGULAR HUMAN 50 UNIT/0.5 ML ML SQ SCH ×2 (07:30→11:30)
[2020-06-04] MEDS: METFORMIN HCL 500 MG TAB PO SCH ×2 (08:00→17:57)
[2020-06-04] MEDS: DULOXETINE 30 MG CAP PO SCH (09:00)
[2020-06-04] MEDS: ENOXAPARIN 80 MG/0.8 ML SQ SCH (09:00)
[2020-06-04] MEDS: GLIMEPIRIDE 2 MG TABLET PO SCH (09:00)
[2020-06-04] MEDS ORDERED: HEPA 1000U/500MLS 2,000 UNIT/1,000 ML BAG IV ONE (11:53)
[2020-06-04] MEDS ORDERED: NA CHLORIDE 0.9% 500 ML ONE (12:44)
[2020-06-04] MEDS ORDERED: HEPARIN 5000 UNIT/ML 1 ML VIAL ONE (13:18)
[2020-06-04] MEDS ORDERED: ATROPINE SULF 1 MG/10 ML SYR IV ONE (13:19)
[2020-06-04] MEDS ORDERED: FENTANYL CITR 100 MCG/2 ML ONE (13:19)
[2020-06-04] MEDS ORDERED: MIDAZOLAM HCL 2 MG/2 ML INJ ONE (13:19)
[2020-06-04] MEDS ORDERED: VERAPAMIL HCL 10 MG/4 ML VIAL IV ONE (13:19)
[2020-06-04] MEDS ORDERED: HEPARIN 10,000 UNIT/10 ML VIAL IV ONE (13:30)
[2020-06-04 17:11] VITALS: TEMP 97; O2SAT 98
--- NOTE | 2020-06-04 17:48 | OP ---
Date of Procedure: 06/04/2020 Surgeon: ROBERTO SCHMIDT Procedures Performed: 1.Selective coronary angiogram. 2.IFR of moderately severe OM1 stenosis of 60% and IFR insignificant value of 1.0. 3.IFR of distal LAD 60% stenosis as well as insignificant value of 0.9. Indication: Unstable angina. Access: Right radial artery 6-Faroese closed with TR band. Description Of Procedure: After risks, benefits, and alternatives were explained, the patient agreed to the procedure and signed informed consent. The patient was brought into the cardiac catheterizat ion laboratory, prepped and draped in usual sterile fashion and then we accessed the right radial art fabián using a pediatric micropuncture kit and placed a 6-Faroese slender sheath. Subsequently, we took a [place] catheter into the aortic root over a J-wire, engaged the left main, right coronary artery, to ok standard views and then exchanged for EBU3.5 for the IFR measurements. Intervention Details: We gave systemic heparin to assure ACT level above 250. We took EBU3.5 into t he aortic root, engaged the left main and then took the FFR wire into the aortic root. Pressures wer e equalized and then the wire was taken to the left circumflex artery and then to the first OM branch crossing the stenosis. IFR value was recorded at 1.0, which was not significant. Wire was removed and then we took it through the left main into the LAD to past the distal portion of the LAD and IFR value was recorded at 0.94, which was not significant. Wire was removed and then final angiogram tommy wed no complications. We removed the EBU and the sheath was removed and placed TR band with good hem ostasis. Findings: 1.Left main is normal. 2.LAD, proximal and mid are normal. Distal portion has 60% long stenosis with negative IFR value of 0.94. 3.Left circumflex, large dominant that is normal with OM1 branch that has mid 60% stenosis with nega tive IFR value 1.0. 4.RCA, small nondominant. No significant disease. The catheter was advanced to the LV over the wire and LVEDP was measured at 2 mmHg. Upon pullback, t here was no difference in gradients. Then, all catheters and sheath were removed and TR band was ilda lied with good hemostasis. Conclusion: 1.Moderate coronary artery disease of LAD and OM1, negative IFR values as above. 2.Normal LVEDP. Recommendations: 1.Medical management for coronary artery disease with long-acting nitrates, blood pressure control. 2.Discharge home later this afternoon once TR band is removed and follow up with me in the office in 4 weeks. SR/MODL Voice ID: [id number] Report ID: [id number]
[2020-06-04 17:59] VITALS: BP 134/71
--- NOTE | 2020-06-04 18:17 | P.DS ---
Admission Date: 06/01/20 Discharge Date: 06/04/20 Disposition: ROUTINE DISCHARGE Discharge Condition: GOOD Reason for Admission: Unstable Angina, failed outpatient stress test Consultations: Cardiology-Dr. Duarte Procedures: CXR (06/01): No acute cardiopulmonary process. Cardiac catheterization (06/04) By Dr. Duarte : Left main is normal. RCA, small nondominant. No significant disease. LAD, proximal and mid are normal. Distal portion: 60% long stenosis with negative IFR value of 0.94. Left circumflex, large dominant that is normal with OM1 branch that has mid 60% stenosis with negative IFR value 1.0. Normal LVEDP. 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 Patient reports intermittent chest pain over the past 1-2 weeks. Midsternal, sharp / cramping pain, can radiate to arms / neck at times. Relieved by nitroglycerin. He otherwise reports being in his usual state of health - no recent illness, no fever/chills, no SOB, no abdominal pain, no lower extremity swelling. In the ED, workup was rather unremarkable. Troponin negative. Discussed with Cardiology and recommended admission and trending troponin, patient will need cardiac catheterization. Hospital Course: Patient was admitted, troponins were trended and remained negative. Cardiology was consulted, and recommended remaining in the hospital until cardiac catheterization performed. Patient underwent cardiac catheterization which revealed 60% stenosis as noted above. He was discharged home with a new prescription for Imdur per Cardiology recommendations. He is to follow up with them in the next few weeks as well. Vital Signs/Physical Exam: Physical exam: Gen: NAD HEENT: sclera anicteric, normal conjunctiva CV: Regular rate and rhythm, no murmur Pulm: Clear to auscultation bilaterally, nonlabored respirations on room air Abd: soft, NTND Ext: no edema, no rash Temp Pulse Resp BP Pulse Ox 97.0 F 64 17 134/71 98 06/04/20 17:10 06/04/20 17:56 06/04/20 17:10 06/04/20 17:56 06/04/20 16:00 Laboratory Data at Discharge: WBC 6.10 K/uL (4.3-10.9) 06/04/20 05:10 Hgb 14.0 g/dL (13.6-17.9) 06/04/20 05:10 Hct 41.2 % (39.6-49.0) 06/04/20 05:10 Plt Count 221 K/uL (152-406) 06/04/20 05:10 PT 11.3 SECONDS (9.5-12.5) 06/01/20 11:10 INR 0.98 06/01/20 11:10 Sodium 138 mmol/L (136-145) 06/04/20 05:10 Potassium 4.4 mmol/L (3.5-5.1) 06/04/20 05:10 BUN 13 mg/dL (7-18) 06/04/20 05:10 Creatinine 0.81 mg/dL (0.55-1.3) 06/04/20 05:10 Glucose 127 mg/dL (74-106) H 06/04/20 05:10 Phosphorus 3.4 mg/dL (2.5-4.9) 06/04/20 05:10 Magnesium 2.1 mg/dL (1.8-2.4) 06/04/20 05:10 Troponin I < 0.02 ng/mL (0.0-0.045) 06/02/20 04:06 Triglycerides 253 mg/dL (<150) H 06/02/20 04:06 Cholesterol 127 mg/dL (<200) 06/02/20 04:06 HDL Cholesterol 38 mg/dL (40-60) L 06/02/20 04:06 Cholesterol/HDL Ratio 3.34 06/02/20 04:06 Home Medications: Metformin HCl [Glucophage*] 500 mg PO BID 11/04/13 Glimepiride [Amaryl*] 1 tab PO DAILY 07/07/18 Amlodipine Besylate 10 mg PO DAILY 06/01/20 Baclofen [Lioresal*] 10 mg PO DAILY 06/01/20 Duloxetine HCl [Cymbalta] 60 mg PO DAILY 06/01/20 Gabapentin 300 mg PO BEDTIME 06/01/20 Glimepiride 2 mg PO DAILY 06/01/20 Insulin Glargine,Hum.rec.anlog [Evonne Ruizpen U-100] 25 unit SQ DAILY 06/01/20 Lisinopril [Zestril] 40 mg PO DAILY 06/01/20 Pravastatin Sodium 20 mg PO DAILY 06/01/20 Aspirin [Aspirin EC 81 MG] 81 mg PO DAILY 30 Days #30 tablet. 06/04/20 Isosorbide Mononitrate [Isosorbide Mononitrate ER] 30 mg PO DAILY 30 Days #30 tab.er.24h 06/04/20 New Medications: Aspirin [Aspirin EC 81 MG] 81 mg PO DAILY 30 Days #30 tablet. Isosorbide Mononitrate [Isosorbide Mononitrate ER] 30 mg PO DAILY 30 Days #30 tab.er.24h Physician Discharge Instructions: Diet: ADA Activity: Ad sheridan Followup: Rome Bush MD [Primary Care Provider] - Time spent managing pt's care (in minutes): 40
[2020-06-04] MEDS ORDERED: D50W 25 GM/50 ML VIAL IV PRN (19:00)
--- NOTE | 2020-07-09 12:23 | CON ---
Date of Consultation: 06/02/2020 Reason For Consultation: Unstable angina. History Of Present Illness: A 65-year-old male with history of diabetes, hypertension, presented for a stress test where he had significant chest pain and dynamic EKG changes, was directed to go to the hospital for unstable angina and significant dynamic EKG abnormalities. Past Medical History: As outlined above in the HPI. Medications: Refer to reconciliation sheet for detailed list. Allergies: REFERRAL TO NURSING NOTES. Social History: Does not smoke or drink. Does not use any drugs. Family History: No premature coronary artery disease or cancer. Review of Systems: All systems reviewed are negative except as mentioned in HPI. Physical Examination: Head and Neck: Pupils are equal, reactive to light. Intact eye movements. No JVD. No cervical lym phadenopathy. Neck: Supple. Thyroid is not enlarged. Lungs: Clear to auscultation bilaterally. No rhonchi, rales, or crackles. No accessory muscle use. Heart: Regular rate and rhythm. No extra sounds. Abdomen: Soft, nontender. Bowel sounds are positive. No organomegaly. No masses or hernia. No ri gidity or rebound. Extremities: No edema, clubbing or cyanosis. Intact pulses. Skin: No rashes. Neurologic: Alert, awake, oriented x3. No acute focal deficits appreciated. Investigations: Labs were reviewed. Assessment And Plan: Unstable angina versus acute coronary syndrome. Start on heparin. Trend cardi ac enzymes. Obtain an echo. Coronary angiogram as soon as it is feasibly possible. /[place] Voice ID: [id number] Report ID: [id number]
== END 2020-06-04 19:13 | disposition home or self-care (01) ==
LOC: ER 10:34 → ERHOLD 12:57 → 2ND 18:25
PROVIDERS: ADMIT Hospitalist; ATTEND Hospitalist
DX: I25.110 Atherosclerotic heart disease of native coronary artery with unstable angina pectoris (principal); E11.9 Type 2 diabetes mellitus without complications; Z79.4 Long term (current) use of insulin; I10 Essential (primary) hypertension; F41.9 Anxiety disorder, unspecified; Z20.822 Contact with and (suspected) exposure to COVID-19
CPT/HCPCS: 93005; 85025 ×2; 80048 ×3; 36415 ×2; 83735 ×2; 84100; 85610; 80061; 82947 ×12; 85027; 84484 ×4; 83880; 71045; 93458; 93571; 94760 ×6; 99285; U0003; C1893; J1644 ×2; J2250; J3010; J7040; G0378; J1815

== ENCOUNTER 2020-07-19 10:42 | Day surgery (SDC) | payer BC ==
[2020-07-18 08:55] LABS: Absolute Lymphocytes (CBC) 1.7 K/uL (0.7-4.9); Basophils % 0.5 % (0-1.3); Hematocrit 38.4 % (39.6-49.0); MPV 8.3 fL (7.6-11.3); RBC Red Blood Cell Count 4.53 M/uL (4.33-5.43)
[2020-07-18 09:11] LABS: Protime INR 1.07
[2020-07-18 09:13] LABS: BUN Blood Urea Nitrogen 12 mg/dL (7-18); Bicarbonate 31 mmol/L (21-32); Glucose Level 131 mg/dL (74-106); Potassium 4.9 mmol/L (3.5-5.1); Sodium Level 141 mmol/L (136-145)
--- NOTE | 2020-07-19 07:21 | EKG ---
Test Date: 2020-07-18 Test Time: 07:34:45 Bilingual Loan Processor: BRITTNEY MEASUREMENT RESULTS: Intervals: Rate: 68 CA: 142 QRSD: 86 QT: 386 QTc: 410 [place]: P: 63 CA: 142 QRS: 59 T: 68 INTERPRETIVE STATEMENTS: Normal sinus rhythm Normal ECG Compared to ECG 06/01/2020 10:45:58 No significant changes Electronically Signed On 07-19-20 07:18:23 CDT by Vignesh Ying
[2020-07-19] MEDS ORDERED: NA CHLORIDE 0.9% 500 ML ONE ×2 (11:02→14:56)
[2020-07-19] MEDS ORDERED: HEPA 1000U/500MLS 2,000 UNIT/1,000 ML BAG IV ONE (14:23)
[2020-07-19] MEDS ORDERED: HEPARIN 5000 UNIT/ML 1 ML VIAL ONE (14:23)
[2020-07-19] MEDS ORDERED: HEPARIN 10,000 UNIT/10 ML VIAL IV ONE (14:24)
[2020-07-19] MEDS ORDERED: FENTANYL CITR 100 MCG/2 ML ONE (14:24)
[2020-07-19] MEDS ORDERED: VERAPAMIL HCL 10 MG/4 ML VIAL IV ONE (14:24)
[2020-07-19] MEDS ORDERED: MIDAZOLAM HCL 2 MG/2 ML INJ ONE (14:24)
[2020-07-19] MEDS ORDERED: ATROPINE SULF 1 MG/10 ML SYR IV ONE (14:25)
[2020-07-19] MEDS ORDERED: NITROGLYCERIN 100 MCG/ML SYR (for cath lab use only) IV ONE (14:25)
[2020-07-19] MEDS ORDERED: REGADENOSON 0.4 MG/5 ML SYR IV ONE ×2 (14:47→17:00)
[2020-07-19] MEDS ORDERED: TICAGRELOR 90 MG TABLET PO ONE (14:59)
[2020-07-19] MEDS ORDERED: HEPA 1000U/500MLS 1,000 UNIT/500 ML BAG IV ONE (15:05)
[2020-07-19 16:51] VITALS: TEMP 97.2
[2020-07-19 17:22] VITALS: O2SAT 97
[2020-07-19 18:24] VITALS: BP 114/60
--- NOTE | 2020-07-19 18:40 | OP ---
Date of Procedure: 07/19/2020 Surgeon: ROBERTO SCHMIDT Procedures Performed: 1.Selective coronary angiogram. 2.IVUS of LAD. 3.FFR of proximal LAD, which was insignificant at 0.84. 4.PCI of the mid OM1 severe stenosis using 2.75 x 16 mm Synergy drug-eluting stent. Access Site: Radial artery 6-Tajik closed with TR band. Indication: Unstable angina. Complications: None. Bleeding: Less than 10 mL. Description Of Procedure: After risks, benefits, and alternatives were explained, the patient agreed to the procedure and signed informed consent. The patient was brought into the cardiac evaluation l aboratory, prepped and draped in usual sterile fashion. Then, we accessed right radial artery using pediatric micropuncture kit and placed a 6-Tajik slender sheath and took a 6-Tajik EBU 3.5 into the aortic root over a J-wire, engaged left main. We gave systemic heparin to assure ACT level above 25 0. An angiogram was done initially and then through the guide and then I took a Comet wire into the aortic root, equalized pressures and then passed the Comet wire through the LAD and put it all the wa y distal and FFR was positive, then pulling it back was still slightly positive approximately; howeve r, there was a drift, so the wire was exchanged and we did an IVUS all the way through the LAD and th ere was no distal disease, so it was felt to be a spasm related. So, then we took the FFR wire again and just tested the proximal lesion and it was insignificant at 0.84. On IVUS, there was a moderate disease in the proximal portion of the LAD with a luminal area varying between 5.75 to 7.2, which is still a very good lumen and negative moderate disease. Then, we proceeded to PCI of left circ, so w e took the Comet wire into the left circ across the stenosis, pre-dilated with balloon and then placed 2.75 x 60 mm Synergy drug-eluting stent for gross stenosis with 0% residual stenosis and CHILO-3 flow. Heparin was given throughout the procedure to assure ACT level above 250 and Brilinta was given as a load. Findings: 1.Left main is normal. 2.LAD; proximal 50% with luminal area ranging between 5.75 to 7.2, which is normal and FFR of 0.84. Rest of LAD is normal. 3.Left circumflex; normal with the exception of the mid OM of 70%, status post PCI as above. 4.RCA is not injected as known to be small. Conclusion: 1.Moderate LAD disease. 2.Severe OM disease, status post PCI as above. Plan: Brilinta, aspirin, statin, and discharge once criteria are met and follow up with me in 4 week s postdischarge. SR/MODL Voice ID: [id number] Report ID: [id number]
== END 2020-07-19 18:40 | disposition home or self-care (01) ==
LOC: CCL 10:42
PROVIDERS: ATTEND Internal Medicine
DX: I25.110 Atherosclerotic heart disease of native coronary artery with unstable angina pectoris (principal); I10 Essential (primary) hypertension; E78.5 Hyperlipidemia, unspecified; E11.9 Type 2 diabetes mellitus without complications; Z20.822 Contact with and (suspected) exposure to COVID-19; Z88.0 Allergy status to penicillin; Z88.6 Allergy status to analgesic agent; Z82.49 Family history of ischemic heart disease and other diseases of the circulatory system
CPT/HCPCS: 93005; 85025; 80048; 36415; 85610; 82947; 85347 ×2; 85730; 92928; 92978; 93571; U0003; C1893; C1725; J1644 ×3; J2250; J3010; J2785 ×2; J7040 ×2

== ENCOUNTER 2020-09-05 12:41 | Emergency (ER) | payer BC ==
--- OUTSIDE RECORDS SUMMARY | 2020-09-05 12:44 | XMS REPORT | Continuity of Care Document ---
:1955 Author Organization [facility] t Address [address] [place] [address] Care Team Providers Name Role Phone Al Rojasir Thien Attending Clinician Eli MAGANA, M Attending Clinician Unavailable Anene AWNING HANGER Attending Clinician [facility], [facility] Attending Clinician Unavailable Problems Condition Condition Condition Status Onset Resolution Last Treating Co mments Source Name Details Category Date Date Treatment Clinician Date Diabetes Problem Resolve 2020-06-30 Me moria mellitus d 22:14:18 l in mother Diabetes Her minor complicati mellitus ng in mother childbirth complicati (disorder) ng childbirth (disorder) Resolved Problem 06/30/2020 [facility] Cervical Problem Active 2020-06-30 Mem oria radiculopa 22:14:18 l thy Cervical Kunal n (disorder) radiculopa thy (disorder) Active Problem 06/30/2020 [facility] Diabetes Problem Active 2020-06-30 Mem oria mellitus 22:14:18 l (disorder) Diabetes He rmann mellitus (disorder) Active Problem 06/30/2020 [facility] Hypertensi Problem Active 2020-06-30 M emoria ve 22:14:18 l disorder, Pro systemic Hypertensi arterial ve (disorder) disorder, systemic arterial (disorder) Active Problem 06/30/2020 [facility] Lumbar Problem Active 2020-06-30 Memor ia radiculopa 22:14:18 l thy Lumbar [place] (disorder) radiculopa thy (disorder) Active Problem 06/30/2020 [facility] Paresthesi Problem Active 2020-06-30 M emoria a 22:14:18 l (finding) Pro Paresthesi a (finding) Active Problem 06/30/2020 [facility] Peripheral Problem Active 2020-06-30 M emoria nerve 22:14:18 l disease Pro (disorder) Peripheral nerve disease (disorder) Active Problem 06/30/2020 [facility] Simple Problem Active 2020-06-30 Memor ia obesity 22:14:18 l (disorder) Simple Herm candace obesity (disorder) Active Problem 06/30/2020 [facility] Allergies, Adverse Reactions, Alerts Allergy Allergy Status Severity Reaction(s) Onset Inactive Treating Comm ents Source Name Type Date Date Clinician codeine codeine Active Madison Mast penicill penicill Active Memori a in in rafaela Mast Social History Social Habit Start Date Stop Date Quantity Comments Source Social History 2019-09-22 2019-09-22 [facility] 15:06:14 15:06:14 Medications Ordered Filled Start Stop Current Ordering Indication Dosage Frequency Signature Comments Components Source Medication Medication Date Date Medication? 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 #[id number], 167.64, cm, 10/26/19 14:53:00 CDT, Height, 92.727, kg, 10/26/19 14:53:00 CDT, Weight DULoxetine No = 1 cap, Mem oria 30 mg oral 7-28 PO, Daily, l delayed 14:48: # 30 cap, Mera nn release 00 0 capsule Refill(s), Pharmacy: [facility] #[id number], 167.64, cm, 10/26/19 14:53:00 CDT, Height, 92.727, kg, 10/26/19 14:53:00 CDT, Weight duloxetine Yes 30 mg = 1 Me moria 30 MG 6-03 cap, PO, l Enteric 20:56: Daily, # Kunal n Coated 00 30 cap, 1 Capsule Refill(s), [Cymbalta] Pharmacy: [facility] #[id number] baclofen 10 2019-0 Yes 10 mg = 1 M emoria mg oral 6-03 tab, PO, l tablet 20:56: BID, # 60 Kunal n 00 tab, 2 Refill(s), Pharmacy: [facility] #[id number] lisinopril 2020-0 Yes 0 Memoria 40 mg oral 6-03 Refill(s) l tablet 19:59: Metformin 2020-0 No 0 Memoria hydrochlori 6-03 Refill(s) l de 500 MG 19:59: [place] Oral Tablet 00 glimepiride 2020-0 No 0 Memori a 2 mg oral 6-03 Refill(s) l tablet 19:59: [place] 00 amLODIPine 2020-0 Yes 0 Memoria 10 mg oral 6-03 Refill(s) l tablet 19:59: Aspirin 81 2020-0 Yes 81 mg = 1 Me moria MG Enteric 5-29 tab, PO, l Coated 14:22: Daily, # [place] Tablet 00 90 tab, 3 Refill(s), other gabapentin 2020-0 Yes 300 mg = 1 M emoria 300 MG Oral 5-29 cap, PO, l Capsule 14:21: Bedtime, # Daysi candace 00 30 cap, 3 Refill(s), Pharmacy: [facility] #[id number] pravastatin 2020-0 Yes 20 mg = 1 [...] Observation Value Comments Source Systolic (mm Hg) 2020-06-14 15:23:00 Trino Mast Diastolic (mm Hg) 2020-06-14 15:23:00 Mem orial Pro Heart Rate 2020-06-14 15:23:00 [facility] [place] Respitory Rate 2020-06-14 15:23:00 Memori al [place] Height 2020-06-14 15:23:00 167.64 cm [facility] [place] Weight 2020-06-14 15:23:00 [facility] BMI Calculated 2020-06-14 15:23:00 Memori al [place] Systolic (mm Hg) 2019-10-26 19:53:00 Trino rial [place] Diastolic (mm Hg) 2019-10-26 19:53:00 Mem orial [place] Heart Rate 2019-10-26 19:53:00 [facility] [place] Respitory Rate 2019-10-26 19:53:00 Memori al Pro Height 2019-10-26 19:53:00 167.64 cm [facility] [place] Weight 2019-10-26 19:53:00 [facility] BMI Calculated 2019-10-26 19:53:00 Memori al [place] Weight 2019-09-28 20:25:00 [facility] [place] BMI Calculated 2019-09-28 20:25:00 Memori al Pro Systolic (mm Hg) 2019-09-28 20:25:00 Trino rial Pro Diastolic (mm Hg) 2019-09-28 20:25:00 Mem orial Pro Heart Rate 2019-09-28 20:25:00 [facility] Respitory Rate 2019-09-28 20:25:00 Memori al Pro Height 2019-09-28 20:25:00 167.64 cm [facility] [place] Systolic (mm Hg) 2019-09-23 13:29:00 Trino rial [place] Diastolic (mm Hg) 2019-09-23 13:29:00 Mem orial [place] Heart Rate 2019-09-23 13:29:00 [facility] [place] Respitory Rate 2019-09-23 13:29:00 Memori al [place] Height 2019-09-23 13:29:00 167.64 cm [facility] Weight 2019-09-23 13:29:00 [facility] BMI Calculated 2019-09-23 13:29:00 Memori al Pro Temperature Oral (F) 2019-09-23 13:29:00 97.9 F [facility] [place] Systolic (mm Hg) 2019-09-22 13:28:00 Trino rial [place] Diastolic (mm Hg) 2019-09-22 13:28:00 Mem orial Pro Heart Rate 2019-09-22 13:28:00 [facility] Respitory Rate 2019-09-22 13:28:00 Memori al [place] Temperature Oral (F) 2019-09-22 13:28:00 98.7 F Teresa Mast Height 2019-09-22 13:28:00 167.64 cm Teresa Mast Weight 2019-09-22 13:28:00 Teresa Por BMI Calculated 2019-09-22 13:28:00 Mario Dinero Procedures This patient has no known procedures. Encounters Start End Encounter Admission Attending Care Care Encounter Source Date/Time Date/Time Type Type Clinicians Facility Department ID 2020-06-28 2020-06-28 Outpatient ALYSON RojasMISCHER MHMISCHER [id number] 08:15:00 08:15:00 Brett 10 Thien 2020-06-28 2020-06-28 Outpatient KENYATTA RojasSCHER MHMISCHER [id number] 08:15:00 08:15:00 Brett 11 Thien 2020-06-14 2020-06-14 Outpatient ALYSON RojasMISCHER MHMISCHER [id number] 09:00:00 23:59:59 Brett 08 Thien 2020-05-04 2020-05-04 Outpatient KENYATTA RojasSCHER MHMISCHER [id number] 09:15:00 09:15:00 Brett 07 Thien 2020-03-16 2020-03-16 Outpatient KENYATTA RojasSCHER MHMISCHER [id number] 15:45:00 15:45:00 Brett 06 Thien 2019-12-21 2019-12-21 Outpatient ALYSON RojasMISCHER MHMISCHER [id number] 13:30:00 13:30:00 Brett 04 Thien 2019-10-26 2019-10-26 Outpatient Crystal MHMISCHER MHMISCHER [id number] 14:45:00 23:59:59 Brett 05 Thien 2019-10-26 2019-10-26 Outpatient Crystal MHMISCHER MHMISCHER [id number] 14:45:00 14:45:00 Brett 03 Thien 2019-09-28 2019-09-28 Outpatient ALYSON RojasMISCHER MHMISCHER [id number] 15:15:00 23:59:59 Brett 02 Thien 2019-09-23 2019-09-23 Outpatient YVES RojasSCHER [id number] 08:15:00 23:59:59 Brett 01 Thien 2019-09-22 2019-09-22 [id number] 10:00:00 23:59:59 Brett 00 [facility] 2019-08-04 2019-08-04 Telephone JOSE M Benitez [id number] 00:00:00 00:00:00 Amita Joo KIMBER[place] [id number] [place] [id number] 2019-08-04 2019-08-04 Telephone JOSE M Long [id number] 00:00:00 00:00:00 Silvia HARRIS [id number] 2019-08-02 2019-08-02 Urgent Pob1, Acute [facility] [id number] 08:02:14 08:22:14 [facility] [id number] [place] [id number] [facility] [id number] [address]al [address] Results This patient has no known results.
[2020-09-05 14:27] LABS: Absolute Lymphocytes (CBC) 1.8 K/uL (0.7-4.9); Basophils % 0.7 % (0-1.3); Hematocrit 39.4 % (39.6-49.0); Lymphocytes % 38.7 % (15.3-44.8); MPV 8.5 fL (7.6-11.3); RBC Red Blood Cell Count 4.63 M/uL (4.33-5.43)
[2020-09-05 14:36] LABS: Protime INR 1.01
[2020-09-05 14:48] LABS: ALT/SGPT 42 U/L (12-78); AST/SGOT 18 U/L (15-37); Albumin 3.9 g/dL (3.4-5.0); Alkaline Phosphatase 79 U/L (45-117); BUN Blood Urea Nitrogen 13 mg/dL (7-18); Bicarbonate 28 mmol/L (21-32); Bilirubin Direct 0.1 mg/dL (0-0.2); Bilirubin Total 0.3 mg/dL (0.2-1.0); Glucose Level 142 mg/dL (74-106); Magnesium 2.1 mg/dL (1.8-2.4); NT PRO-BNP 35 pg/mL (<125); Protein, Total 7.5 g/dL (6.4-8.2); Sodium Level 140 mmol/L (136-145); Troponin (Emerg Dept Use Only) < 0.02 ng/mL (0.0-0.045)
--- NOTE | 2020-09-05 14:53 | RAD REPORT ---
EXAM DESCRIPTION: Eric Single View09/05/2020 2:35 pm CLINICAL HISTORY: Chest pain COMPARISON: May 2020 FINDINGS: The lungs appear clear of acute infiltrate. The heart is normal size IMPRESSION: No acute abnormalities displayed
[2020-09-05 16:01] LABS: Blood Morphology Comment NOT SEEN (NOT SEEN); Platelet Estimate ADEQ; White Blood Cell Scan OK (OK)
--- NOTE | 2020-09-05 16:40 | ER ---
Nurse's Notes [facility] Name: Alec Ortiz Jr Age: 65 yrs Sex: Male : 1955 Arrival Date: 09/05/2020 Time: 12:43 Bed 5 Private MD: Diagnosis: Chest pain, unspecified Presentation: 09/05 13:10 Chief complaint: Left sided chest pain that radiates to back and SOB x 2 days. Pain is hb worse when he raises left arm. Coronavirus screen: At this time, the client does not indicate any symptoms associated with coronavirus-19. Ebola Screen: No symptoms or risks identified at this time. Initial Sepsis Screen: Does the patient meet any 2 criteria? No. Patient's initial sepsis screen is negative. Risk Assessment: Do you want to hurt yourself or someone else? Patient reports no desire to harm self or others. Onset of symptoms was September 04, 2020. 13:10 Method Of Arrival: Ambulatory hb 13:10 Acuity: WILLA 3 hb 14:33 Initial Sepsis Screen: Does the patient have a suspected source of infection? No. ap3 Patient's initial sepsis screen is negative. Historical: - Allergies: 14:34 Codeine; ap3 14:34 PENICILLINS; ap3 - PMHx: 13:12 Diabetes - NIDDM; Hypertension; hb - PSHx: 13:12 Tonsillectomy; Knee surgery; pilonidal cyst; Cholecystectomy; Heart stents; hb - Immunization history:: Adult Immunizations up to date. - Social history:: Smoking status: Patient denies any tobacco usage or history of. Screenin:32 Abuse screen: Denies threats or abuse. Nutritional screening: No deficits noted. ap3 Tuberculosis screening: No symptoms or risk factors identified. Fall Risk None identified. Assessment: 14:27 Also complains of shortness of breath, FEVER, BODY ACHES. General: Appears in no ap3 apparent distress. comfortable, Behavior is calm, cooperative, appropriate for age, Reports chills for 1-2 days, fever for 1-2 days, feeling ill for 1-2 days. Pain: Complains of pain in GENERALIZED BODY ACHES Pain does not radiate. Quality of pain is described as aching, Pain began 2-3 days ago. Also complains of shortness of breath. Neuro: Level of Consciousness is awake, alert, obeys commands, Oriented to person, place, time, situation, Gait is steady, Speech is normal, Facial symmetry appears normal. 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 PATIENT STATED HE RECEIVED THE J\T\J VACCINE Thursday09/03/20 AND BEGAN FEELING ILL 12 HOURS AFTER THE VACCINATION. Respiratory: Reports shortness of breath since AREA OPERATIONS MANAGER HOURS OF 09/04/20 Airway is patent Respiratory effort is even, unlabored, Respiratory pattern is regular, symmetrical. GI: No signs and/or symptoms were reported involving the gastrointestinal system. : No signs and/or symptoms were reported regarding the genitourinary system. EENT: No signs and/or symptoms were reported regarding the EENT system. Derm: No signs and/or symptoms reported regarding the dermatologic system. Musculoskeletal: No signs and/or symptoms reported regarding the musculoskeletal system. Vital Signs: 13:10 BP 137 / 82; Pulse 80; Resp 18; Temp 97.7; Pulse Ox 100% ; Pain 8/10; hb 14:24 BP 115 / 74; Pulse 72; Resp 14; Pulse Ox 99% ; sv 14:34 BP 101 / 72; Pulse 72; Pulse Ox 100% on R/A; ap3 15:30 BP 119 / 73; Pulse 66; Resp 16; Pulse Ox 100% ; sv ED Course: 12:43 Patient arrived in ED. ds1 13:11 Triage completed. hb 13:12 Arm band placed on. hb 14:03 Naveen Soriano PA is PHCP. jr8 14:03 Mike Guadalupe MD is Attending Physician. jr8 14:04 Christine Calderon, IZZY is Primary Nurse. ap3 14:10 Inserted saline lock: 20 gauge in left antecubital area, using aseptic technique. Blood ap3 collected. 14:32 Patient has correct armband on for positive identification. Bed in low position. Call ap3 light in reach. Side rails up X 1. cafeteria monitor on. Pulse ox on. NIBP on. Door closed. Noise minimized. 14:33 Patient maintains SpO2 saturation greater than 95% on room air. ap3 14:35 XRAY Chest (1 view) In Process Unspecified. EDMS 16:39 Vignesh Ying MD is Referral Physician. jr8 17:31 No provider procedures requiring assistance completed. IV discontinued, intact, ap3 bleeding controlled, No redness/swelling at site. Pressure dressing applied. Administered Medications: 17:35 Not Given (Patient Refused): TORadol - (ketorolac) 15 mg IVP once ap3 Outcome: 16:40 Discharge ordered by MD. bullock 17:32 Discharged to home ambulatory. ap3 17:32 Condition: good 17:32 Discharge instructions given to patient, Instructed on discharge instructions, follow up and referral plans. Demonstrated understanding of instructions, follow-up care, Prescriptions given X none 17:35 Patient left the ED. ap3 Signatures: Dispatcher [employer] EDRachel Childs RN RN Patti العراقي Josh, PA PA jr8 Baxter, Heather, RN RN hb Prokisch, Amanda, RN RN ap3 Corrections: (The following items were deleted from the chart) 14:34 13:12 Allergies: Codeine; hb ap3 14:34 13:12 Allergies: PENICILLINS; ap3
--- NOTE | 2020-09-05 16:40 | EDPHYS ---
Physician Documentation [facility] Name: Alec Ortiz Jr Age: 65 yrs Sex: Male : 1955 Arrival Date: 09/05/2020 Time: 12:43 Bed 5 Private MD: ED Physician Mike Guadalupe HPI: 09/05 14:20 This 65 yrs old Male presents to ER via Ambulatory with complaints of Chest jr8 Pain, Shortness Of Breath. 14:20 The patient or guardian reports chest pain that is located primarily in the anterior jr8 chest wall, left. Onset: acutely, today. The pain radiates to left back. Associated signs and symptoms: Pertinent positives: cough, shortness of breath. The chest pain is described as sharp. Duration: The patient or guardian reports multiple episodes. Modifying factors: The symptoms are alleviated by nothing. the symptoms are aggravated by nothing. Severity of pain: At its worst the pain was moderate in the emergency department the pain is unchanged. The patient has not experienced similar symptoms in the past. The patient has not recently seen a physician. Patient stated that he received the J\T\J on Thursday. Since then has been feeling bad. Increased cough, congestion, and now with chest pain and shortness of breath. Historical: - Allergies: 14:34 Codeine; ap3 14:34 PENICILLINS; ap3 - PMHx: 13:12 Diabetes - NIDDM; Hypertension; hb - PSHx: 13:12 Tonsillectomy; Knee surgery; pilonidal cyst; Cholecystectomy; Heart stents; hb - Immunization history:: Adult Immunizations up to date. - Social history:: Smoking status: Patient denies any tobacco usage or history of. ROS: 16:34 Eyes: Negative for injury, pain, redness, and discharge, ENT: Negative for injury, jr8 pain, and discharge, Neck: Negative for injury, pain, and swelling, Abdomen/GI: Negative for abdominal pain, nausea, vomiting, diarrhea, and constipation, Back: Negative for injury and pain, MS/Extremity: Negative for injury and deformity, Skin: Negative for injury, rash, and discoloration, Neuro: Negative for headache, weakness, numbness, tingling, and seizure. 16:34 Cardiovascular: Positive for chest pain. 16:34 Respiratory: Positive for cough, shortness of breath. Exam: 16:34 Constitutional: This is a well developed, well nourished patient who is awake, alert, jr8 and in no acute distress. Chest/axilla: Normal chest wall appearance and motion. Nontender with no deformity. No lesions are appreciated. Cardiovascular: Regular rate and rhythm with a normal S1 and S2. No gallops, murmurs, or rubs. Normal PMI, no JVD. No pulse deficits. Respiratory: Lungs have equal breath sounds bilaterally, clear to auscultation and percussion. No rales, rhonchi or wheezes noted. No increased work of breathing, no retractions or nasal flaring. Abdomen/GI: Soft, non-tender, with normal bowel sounds. No distension or tympany. No guarding or rebound. No evidence of tenderness throughout. Back: No spinal tenderness. No costovertebral tenderness. Full range of motion. Skin: Warm, dry with normal turgor. Normal color with no rashes, no lesions, and no evidence of cellulitis. MS/ Extremity: Pulses equal, no cyanosis. Neurovascular intact. Full, normal range of motion. Neuro: Awake and alert, GCS 15, oriented to person, place, time, and situation. Cranial nerves II-XII grossly intact. Motor strength 5/5 in all extremities. Sensory grossly intact. Cerebellar exam normal. Normal gait. Vital Signs: 13:10 BP 137 / 82; Pulse 80; Resp 18; Temp 97.7; Pulse Ox 100% ; Pain 8/10; hb 14:24 BP 115 / 74; Pulse 72; Resp 14; Pulse Ox 99% ; sv 14:34 BP 101 / 72; Pulse 72; Pulse Ox 100% on R/A; ap3 15:30 BP 119 / 73; Pulse 66; Resp 16; Pulse Ox 100% ; sv MDM: 14:03 Patient medically screened. jr8 16:37 Data reviewed: vital signs, nurses notes, lab test result(s), EKG, radiologic studies, jr8 plain films. Data interpreted: Pulse oximetry: on room air is 100 %. Interpretation: normal. Counseling: I had a detailed discussion with the patient and/or guardian regarding: the historical points, exam findings, and any diagnostic results supporting the discharge/admit diagnosis, lab results, radiology results, the need for outpatient follow up, a family practitioner, to return to the emergency department if symptoms worsen or persist or if there are any questions or concerns that arise at home. Special discussion: Based on the patient's history, exam, and Dx evaluation, there is no indication for emergent intervention or inpatient Tx. It is understood by the patient/guardian that if the Sx's persist or worsen they need to return immediately for re-evaluation. 16:40 Differential diagnosis: abnormal EKG, acute myocardial infarction, acute pericarditis, 8 chest wall pain, costochondritis, gastritis, pleurisy, pneumonia, pulmonary embolus, stable angina, thoracic aortic disection, unstable angina. 09/05 14:04 Order name: Basic Metabolic Panel; Complete Time: 15:18 [facility] 09/05 14:04 Order name: CBC with Diff; Complete Time: 16:06 [facility] 09/05 14:04 Order name: LFT's; Complete Time: 15:18 [facility] 09/05 14:04 Order name: Magnesium; Complete Time: 15:18 [facility] 09/05 14:04 Order name: NT PRO-BNP; Complete Time: 15:18 [facility] 09/05 14:04 Order name: PT-INR; Complete Time: 15:18 [facility] 09/05 14:04 Order name: Troponin (emerg Dept Use Only); Complete Time: 15:18 [facility] 09/05 14:04 Order name: XRAY Chest (1 view); Complete Time: 15:18 [facility] 09/05 14:19 Order name: DD; Complete Time: 15:18 [facility] 09/05 15:30 Order name: SARS-COV-2 RT PCR; Complete Time: 15:31 [facility] 09/05 16:01 Order name: CBC Smear Scan; Complete Time: 16:06 [facility] 09/05 16:05 Order name: Troponin (emerg Dept Use Only); Complete Time: 16:34 [facility] 09/05 13:10 Order name: EKG; Complete Time: 13:11 hb 09/05 13:10 Order name: EKG - Nurse/Tech; Complete Time: 13:10 hb 09/05 14:04 Order name: Cardiac monitoring; Complete Time: 14:21 [facility] 09/05 14:04 Order name: IV Saline Lock; Complete Time: 14:21 [facility] 09/05 14:04 Order name: Labs collected and sent; Complete Time: 14:21 [facility] 09/05 14:04 Order name: O2 Per Protocol; Complete Time: :8 09/05 14:04 Order name: O2 Sat Monitoring; Complete Time: 8 Administered Medications: 17:35 Not Given (Patient Refused): TORadol - (ketorolac) 15 mg IVP once ap3 Disposition: 09/06 07:51 Co-signature as Attending Physician, Mike Guadalupe MD I agree with the assessment and ngein plan of care. Disposition: 09/05/20 16:40 Discharged to Home. Impression: Chest pain, unspecified. - Condition is Stable. - Discharge Instructions: Nonspecific Chest Pain. - Work release form, Medication Reconciliation Form, Thank You Letter, Antibiotic Education, Prescription Opioid Use form. - Follow up: Vignesh Ying MD; When: 1 - 2 days; Reason: Recheck today's complaints, Continuance of care, Re-evaluation by your physician. - Problem is new. - Symptoms have improved. Signatures: Dispatcher [employer] EDNE Mike Guadalupe MD MD cha Roszak, Josh, PA PA jr8 Carla Riojas, RN RN Christine Flaherty RN RN ap3 Corrections: (The following items were deleted from the chart) 09/05 14:34 13:12 Allergies: Codeine; hb ap3 14:34 13:12 Allergies: PENICILLINS; hb ap3 14:45 14:20 CORONAVIRUS+[email or web address] ordered. [facility] 17:35 16:40 09/05/2020 16:40 Discharged to Home. Impression: Chest pain, unspecified. ap3 Condition is Stable. Forms are Medication Reconciliation Form, Thank You Letter, Antibiotic Education, Prescription Opioid Use. Follow up: Vignesh Ying; When: 1 - 2 days; Reason: Recheck today's complaints, Continuance of care, Re-evaluation by your physician. Problem is new. Symptoms have improved. jr8
[2020-09-05 17:52] VITALS: TEMP 97.7
[2020-09-05 17:55] VITALS: O2SAT 100
[2020-09-05 17:56] VITALS: BP 119/73
== END 2020-09-05 17:35 | disposition home or self-care (01) ==
LOC: ER 12:41
DX: R07.89 Other chest pain (principal); Z20.822 Contact with and (suspected) exposure to COVID-19; I10 Essential (primary) hypertension; Z88.0 Allergy status to penicillin; Z88.5 Allergy status to narcotic agent; Z95.818 Presence of other cardiac implants and grafts
CPT/HCPCS: 85025; 80048; 36415; 83735; 85610; 85379; 80076; 84484 ×2; 83880; 71045; U0003; 99285

== ENCOUNTER 2020-12-10 06:29 | Emergency (ER) | payer BC ==
--- OUTSIDE RECORDS SUMMARY | 2020-12-10 06:32 | XMS REPORT | Continuity of Care Document ---
:1955 Author Organization [facility] t Address [address] [place] [address] Care Team Providers Name Role Phone Tre Louise MD A Attending Clinician Only, Test Attending Clinician Unavailable Lab, Fam Pob I Attending Clinician Unavailable Doctor Unassigned, Name Attending Clinician Unavailable Thien Rojas Attending Clinician Pob, Lab Main Attending Clinician Unavailable Eli MAGANA, M Attending Clinician Unavailable Anene DRAW OPERATOR Attending Clinician Pob1, Care Clinic Attending Clinician Unavailable Dani SPENCE, Court Admitting Clinician Problems Condition Condition Condition Status Onset Resolution Last Treating Co mments Source Name Details Category Date Date Treatment Clinician Date Diabetes Problem Resolve 2020-11-19 Me moria mellitus d 00:39:08 l in mother Diabetes Her minor complicati mellitus ng in mother childbirth complicati (disorder) ng childbirth (disorder) Resolved Problem 11/19/2020 [facility] Cervical Problem Active 2020-11-19 Mem oria radiculopa 00:39:08 l thy Cervical Kunal n (disorder) radiculopa thy (disorder) Active Problem 11/19/2020 [facility] Diabetes Problem Active 2020-11-19 Mem oria mellitus 00:39:08 l (disorder) Diabetes He rmann mellitus (disorder) Active Problem 11/19/2020 [facility] Hypertensi Problem Active 2020-11-19 M emoria ve 00:39:08 l disorder, [place] systemic Hypertensi arterial ve (disorder) disorder, systemic arterial (disorder) [facility] Lumbar Problem Active 2020-11-19 Memor ia radiculopa 00:39:08 l thy Lumbar [place] (disorder) radiculopa thy (disorder) Active Problem 11/19/2020 [facility] Paresthesi Problem Active 2020-11-19 M emoria a 00:39:08 l (finding) [place] Paresthesi a (finding) Active Problem 11/19/2020 [facility] Peripheral Problem Active 2020-11-19 M emoria nerve 00:39:08 l disease Pro (disorder) Peripheral nerve disease (disorder) Active Problem 11/19/2020 [facility] Simple Problem Active 2020-11-19 Memor ia obesity 00:39:08 l (disorder) Simple Herm candace obesity (disorder) Active Problem 11/19/2020 [facility] Coronary Problem Active 2020-11-19 Mem oria arterioscl 00:39:08 l erosis Coronary Kunal n (disorder) arterioscl erosis (disorder) Active Problem 11/19/2020 [facility] Allergies, Adverse Reactions, Alerts Allergy Allergy Status Severity Reaction(s) Onset Inactive Treating Comm ents Source Name Type Date Date Clinician codeine codeine Active Madison Mast penicill penicill Active Evelynori a in in rafaela Mast Social History Social Habit Start Date Stop Date Quantity Comments Source Social History 2020-11-16 2020-11-16 [facility] jessica 20:18:11 20:18:11 Medications Ordered Filled Start Stop Current Ordering Indication Dosage Frequency Signature Comments Components Source Medication Medication Date Date Medication? Clinician (SIG) Name Name Brilinta Yes PO, BID, 0 Mem oria 6-04 Refill(s) l 21:25: Pro 00 gabapentin Yes 100 mg = 1 M emoria 100 MG Oral 2-18 cap, PO, l Capsule 18:59: QAM, # 30 Mera nn 00 cap, 3 Refill(s), [id number], 167.64, cm, 06/14/20 9:23:00 [employer], Height, 96.818, kg, 06/14/20 9:23:00 [employer], Weight baclofen 10 Yes = 1 tab, Me moria mg oral 2-18 PO, BID, # l tablet 15:35: 60 tab, 4 Kunal n 00 Refill(s), Pharmacy: [facility][id number], 167.64, cm, 06/14/20 9:23:00 [employer], Height, 96.818, kg, 06/14/20 9:23:00 [employer], Weight gabapentin 2020-0 Yes 300 mg = 1 M emoria 300 MG Oral 2-18 cap, PO, l Capsule 15:35: Bedtime, # Herm candace 00 30 cap, 3 Refill(s), Pharmacy: [facility] #[id number], 167.64, cm, 06/14/20 9:23:00 [employer], Height, 96.818, kg, 06/14/20 9:23:00 [employer], Weight DULoxetine Yes 60 mg = 1 Me moria 60 mg oral 2-18 cap, PO, l delayed 15:34: Daily, # Kunal n release 00 30 cap, 3 capsule Refill(s), Pharmacy: [facility] #[id number], 167.64, cm, 06/14/20 9:23:00 [employer], Height, 96.818, kg, 06/14/20 9:23:00 [employer], Weight isosorbide 2020-0 No 40 mg, PO, M emoria dinitrate 2-18 Daily, 0 l extended 15:33: Refill(s) Herm candace release 00 Isosorbide 2020-0 Yes PO, 0 Memori a 2-18 Refill(s) l 15:33: Pro 00 DULoxetine 2019-0 Yes 60 mg = 1 Me moria 60 mg oral 8-21 cap, PO, l delayed 22:56: Daily, # Kunal n release 00 30 cap, 3 capsule Refill(s), Pharmacy: [facility] #[id number], 167.64, cm, 10/26/19 14:53:00 CDT, Height, 92.727, kg, 10/26/19 14:53:00 CDT, Weight DULoxetine 2019-0 No = 1 cap, Mem oria 30 mg oral 7-28 PO, Daily, l delayed 14:48: # 30 cap, Mera nn release 00 0 capsule Refill(s), Pharmacy: [facility] #[id number], 167.64, cm, 10/26/19 14:53:00 CDT, Height, 92.727, kg, 10/26/19 14:53:00 CDT, Weight duloxetine 2020-0 Yes 30 mg = 1 Me moria 30 MG 6-03 cap, PO, l Enteric 20:56: Daily, # Kunal n Coated 00 30 cap, 1 Capsule Refill(s), [Cymbalta] Pharmacy: [facility] #[id number] baclofen 10 2020-0 Yes 10 mg = 1 M emoria mg oral 6-03 tab, PO, l tablet 20:56: BID, # 60 Kunal n 00 tab, 2 Refill(s), Pharmacy: [facility] #[id number] lisinopril 2020-0 Yes 0 Memoria 40 mg oral 6-03 Refill(s) l tablet 19:59: [place] 00 Metformin 2020-0 No 0 Memoria hydrochlori 6-03 Refill(s) l de 500 MG 19:59: Pro Oral Tablet 00 glimepiride 2020-0 No 0 Memori a 2 mg oral 6-03 Refill(s) l tablet 19:59: [place] 00 amLODIPine 2020-0 Yes 0 Memoria 10 mg oral 6-03 Refill(s) l tablet 19:59: Pro 00 Aspirin 81 2020-0 Yes 81 mg = 1 Me moria MG Enteric 5-29 tab, PO, l Coated 14:22: Daily, # [place] Tablet 00 90 tab, 3 Refill(s), other gabapentin 2020-0 Yes 300 mg = 1 M emoria 300 MG Oral 5-29 cap, PO, l Capsule 14:21: Bedtime, # Herm candace 00 30 cap, 3 Refill(s), Pharmacy: [facility] #[id number] pravastatin 2020-0 Yes 20 mg = 1 M emoria 20 mg oral 5-28 tab, PO, l tablet 14:59: Bedtime, # Mera nn 00 30 tab, 0 Refill(s) Lisinopril 2020-0 Yes 40 mg, PO, M emoria 5-28 Daily, 0 l 14:50: Refill(s) Pro 00 Amlodipine 2020-0 Yes 10 mg, PO, M emoria 5-28 Daily, 0 l 14:50: Refill(s) [place] Metformin Yes 500 mg, Memor ia 5-28 PO, BID, 0 l 14:50: Refill(s) [place] glimepiride Yes 2 mg, PO, M emoria 5-28 Daily, 0 l 14:50: Refill(s) Pro Vital Signs Vital Name Observation Time Observation Value Comments Source Systolic (mm Hg) 2020-11-16 20:17:00 Trino rial Pro Diastolic (mm Hg) 2020-11-16 20:17:00 Mem orial Pro Heart Rate 2020-11-16 20:17:00 [facility] [place] Respitory Rate 2020-11-16 20:17:00 [facility] al [place] Height 2020-11-16 20:17:00 167.64 cm [facility] Pro Weight 2020-11-16 20:17:00 [facility] BMI Calculated 2020-11-16 20:17:00 Memori al Pro Systolic (mm Hg) 2020-09-28 20:50:00 Trino rial Pro Diastolic (mm Hg) 2020-09-28 20:50:00 Mem orial [place] Heart Rate 2020-09-28 20:50:00 [facility] [place] Respitory Rate 2020-09-28 20:50:00 Memori al Pro Height 2020-09-28 20:50:00 167.64 cm [facility] Pro Weight 2020-09-28 20:50:00 [facility] [place] BMI Calculated 2020-09-28 20:50:00 [facility] [place] Systolic (mm Hg) 2020-06-14 15:23:00 Trino rial [place] Diastolic (mm Hg) 2020-06-14 15:23:00 Mem orial [place] Heart Rate 2020-06-14 15:23:00 [facility] Pro Respitory Rate 2020-06-14 15:23:00 [facility] al [place] Height 2020-06-14 15:23:00 167.64 cm [facility] Pro Weight 2020-06-14 15:23:00 [facility] [place] BMI Calculated 2020-06-14 15:23:00 Memori al [place] Systolic (mm Hg) 2019-10-26 19:53:00 Trino rial [place] Diastolic (mm Hg) 2019-10-26 19:53:00 Mem orial Pro Heart Rate 2019-10-26 19:53:00 [facility] Pro Respitory Rate 2019-10-26 19:53:00 Memori al [place] Height 2019-10-26 19:53:00 167.64 cm [facility] Pro Weight 2019-10-26 19:53:00 [facility] Pro BMI Calculated 2019-10-26 19:53:00 Memori al [place] Systolic (mm Hg) 2019-09-28 20:25:00 Trino rial Pro Diastolic (mm Hg) 2019-09-28 20:25:00 Mem orial Pro Heart Rate 2019-09-28 20:25:00 [facility] Pro Respitory Rate 2019-09-28 20:25:00 Memori al [place] Height 2019-09-28 20:25:00 167.64 cm [facility] [place] Weight 2019-09-28 20:25:00 [facility] [place] BMI Calculated 2019-09-28 20:25:00 Memori al Pro Heart Rate 2019-09-23 13:29:00 [facility] [place] Respitory Rate 2019-09-23 13:29:00 Mem[facility] al [place] Height 2019-09-23 13:29:00 167.64 cm [facility] [place] Weight 2019-09-23 13:29:00 [facility] [place] BMI Calculated 2019-09-23 13:29:00 Memori al [place] Temperature Oral (F) 2019-09-23 13:29:00 97.9 F [facility] [place] Systolic (mm Hg) 2019-09-23 13:29:00 Trino rial [place] Diastolic (mm Hg) 2019-09-23 13:29:00 Mem orial Pro Systolic (mm Hg) 2019-09-22 13:28:00 Trino rial [place] Diastolic (mm Hg) 2019-09-22 13:28:00 Mem orial Pro Heart Rate 2019-09-22 13:28:00 [facility] [place] Respitory Rate 2019-09-22 13:28:00 Memori al Pro Temperature Oral (F) 2019-09-22 13:28:00 98.7 F [facility] [place] Height 2019-09-22 13:28:00 167.64 cm [facility] Pro Weight 2019-09-22 13:28:00 Teresa Mast BMI Calculated 2019-09-22 13:28:00 Mario Dinero Procedures Procedure Date / Time Performed Performing Clinician [facility] e Stent placement Teresa Mast Encounters Start End Encounter Admission Attending Care Care Encounter Source Date/Time Date/Time Type Type Clinicians Facility Department ID 2020-12-28 2020-12-28 Outpatient [facility] [id number] [facility] 15:45:00 15:45:00 13 rafaela Mast 2020-11-28 2020-11-28 [facility] 1.2.840.114 [id number] 09:50:00 10:29:00 [place] 350.1.13.10 [place] 4.2.7.2.686 Surgical [id number] [place] 020 2020-11-28 2020-11-28 [facility] [id number] 08:00:00 10:15:00 Encounter Tre Yun Niyah 350.1.13.10 [place] 4.2.7.2.686 Surgical [id number] [place] 071 2020-11-28 2020-11-28 Laboratory Only, [facility] 1.2.840.114 [id number] 07:33:14 07:48:14 Only Test [place] 350.1.13.10 [place] 4.2.7.2.686 [place] [id number] 2020-11-21 2020-11-21 Laboratory Lab, [facility] 1.2.840.114 [id number] 14:03:01 14:23:01 Only Fam Pob [facility] Health 350.1.13.10 [place] 4.2.7.2.686 [facility] [id number] nal 0[address] 2020-11-21 2020-11-21 Letter Doctor SALGUERO 1.2.840.114 [id number] 00:00:00 00:00:00 (Out) UnassKIMBERLY laurent 350.1.13.10 [place] [facility] 4.2.7.2.686 [id number] 2020-11-21 2020-11-21 Letter Doctor SALGUERO 1.2.840.114 [id number] 00:00:00 00:00:00 (Out) Unassigned, KIMBERLY 350.1.13.10 [place] [facility] 4.2.7.2.686 [id number] 2020-11-16 2020-11-17 Outpatient nullFlavo MNA [id number] Memoria 21:00:00 04:59:59 r Neurology 12 l Ayush Mast 2020-11-16 2020-11-16 [id number] 16:00:00 23:59:59 Brett 12 Thien 2020-11-16 2020-11-16 Outpatient MHIE IE [id number] Memoria 16:00:00 16:00:00 12 l [place] 2020-11-14 2020-11-14 [facility] [id number] 06:55:00 08:58:00 Encounter Tre Linder 350.1.13.10 [place] 4.2.7.2.686 Surgical [id number] [place] 07 2020-11-14 2020-11-14 [facility] 1.2.840.114 [id number] 08:00:00 08:42:00 Niyah 350.1.13.10 [place] 4.2.7.2.686 Surgical [id number] [place] 020 2020-11-14 2020-11-14 Orders Doctor SALGUERO 1.2.840.114 [id number] 00:00:00 00:00:00 Only Unassigned, KIMBERLY 350.1.13.10 [place] [facility] 4.2.7.2.686 [id number] 2020-11-05 2020-11-05 Consulting Manager Vishnu Chery [facility] 1.2.840.114 [id number] 11:14:30 11:29:30 Visit Lab Main Niyah 350.1.13.10 [place] 4.2.7.2.686 Professio [id number] [address] 2020-11-05 2020-11-05 Orders Doctor JOSE M 1.2.840.114 [id number] 00:00:00 00:00:00 Only Unassigned, KIMBERLY 350.1.13.10 [place] [facility] 4.2.7.2.686 [id number] 2020-09-28 2020-09-29 Outpatient nullFlavo MNA [id number] Memoria 21:00:00 04:59:59 r Neurology 09 rafaela Mast 2020-09-28 2020-09-28 Outpatient KENYATTA RojasSCHER KENYATTASCHER [id number] 16:00:00 23:59:59 Brett 09 Thien 2020-09-28 2020-09-28 Outpatient MHIE MHIE [id number] Memoria 16:00:00 16:00:00 09 rafaela Mast 2020-06-28 2020-06-28 Ambulatory nullFlavo MNA [id number] Memoria 14:15:00 14:15:00 Pre-Reg r Neurology 10 rafaela Mast 2020-06-28 2020-06-28 Ambulatory nullFlavo MNA [id number] Memoria 14:15:00 14:15:00 Pre-Reg r Neurology 11 rafaela Mast 2020-06-28 2020-06-28 Outpatient MHIE MHIE [id number] Memoria 08:15:00 08:15:00 11 rafaela Mast 2020-06-28 2020-06-28 Outpatient MHIE MHIE [id number] Memoria 08:15:00 08:15:00 10 rafaela Mast 2020-06-28 2020-06-28 Outpatient KENYATTA RojasSCHER KENYATTASCHER [id number] 08:15:00 08:15:00 Brett 10 Thien 2020-06-28 2020-06-28 Outpatient KENYATTA RojasSCHER KENYATTASCHER [id number] 08:15:00 08:15:00 Brett 11 Thien 2020-06-14 2020-06-15 Outpatient nullFlavo MNA [id number] Memoria 15:00:00 05:59:59 r Neurology 08 rafaela Mast 2020-06-14 2020-06-14 Outpatient KENYATTA RojasSCHER MHMISCHER [id number] 09:00:00 23:59:59 Brett 08 Thien 2020-06-14 2020-06-14 Outpatient MHIE MHIE [id number] Memoria 09:00:00 09:00:00 08 rafaela Mast 2020-05-04 2020-05-04 Ambulatory nullFlavo MNA [id number] Memoria 15:15:00 15:15:00 Pre-Reg r Neurology 07 l Ayush Pro 2020-05-04 2020-05-04 Outpatient MHIE MHIE [id number] Memoria 09:15:00 09:15:00 07 rafaela Pro 2020-05-04 2020-05-04 Outpatient [facility]JR[facility] [id number] 09:15:00 09:15:00 Brett 07 Thien 2020-03-16 2020-03-16 Ambulatory nullFlavo MNA [id number] Memoria 21:45:00 21:45:00 Pre-Reg r Neurology 06 l [place] Pro 2020-03-16 2020-03-16 Outpatient MHIE MHIE [id number] Memoria 15:45:00 15:45:00 06 rafaela Pro 2020-03-16 2020-03-16 Outpatient [facility]ES [facility] [id number] 15:45:00 15:45:00 Brett 06 Th[place] 2019-12-21 2019-12-21 Ambulatory nullFlavo MNA [id number] Memoria 18:30:00 18:30:00 Pre-Reg r Neurology 04 rafaela [place] Pro 2019-12-21 2019-12-21 Outpatient MHIE IE [id number] Memoria 13:30:00 13:30:00 04 rafaela Pro 2019-12-21 2019-12-21 Outpatient [facility] [id number] 13:30:00 13:30:00 Brett 04 Thien 2019-10-26 2019-10-27 Outpatient nullFlavo MNA [id number] Memoria 19:45:00 04:59:59 r Neurology 05 l [place] Pro 2019-10-26 2019-10-26 Outpatient YVES Rojas MISCHER [id number] 14:45:00 23:59:59 Brett 05 Thien 2019-10-26 2019-10-26 Ambulatory nullFlavo MNA [id number] Memoria 19:45:00 19:45:00 Pre-Reg r Neurology 03 l Ayush Mast 2019-10-26 2019-10-26 Outpatient MHIE MHIE [id number] Memoria 14:45:00 14:45:00 05 l [place] 2019-10-26 2019-10-26 Outpatient ALYSON RojasMISCHER MHMISCHER [id number] 14:45:00 14:45:00 Brett 03 [place] 2019-10-26 2019-10-26 Outpatient MHIE MHIE [id number] Memoria 09:45:00 09:45:00 03 l Pro 2019-09-28 2019-09-29 Outpatient nullFlavo MNA [id number] Memoria 20:15:00 04:59:59 r Neurology 02 l Ayush Mast 2019-09-28 2019-09-28 Outpatient ALYSON RojasMISCHER MHMISCHER [id number] 15:15:00 23:59:59 Brett 02 [place] 2019-09-28 2019-09-28 Outpatient MHIE MHIE [id number] Memoria 15:15:00 15:15:00 02 rafaela Pro 2019-09-23 2019-09-24 Outpatient nullFlavo MNA [id number] Memoria 13:15:00 04:59:59 r Neurology 01 l [place] Pro 2019-09-23 2019-09-23 Outpatient ALYSON RojasMISCHER MHMISCHER [id number] 08:15:00 23:59:59 Brett [place] 2019-09-23 2019-09-23 Outpatient MHIE MHIE [id number] Memoria 08:15:00 08:15:00 01 rafaela Pro 2019-09-22 2019-09-23 Outpatient nullFlavo MNA [id number] Memoria 15:00:00 04:59:59 r Neurology 00 l Ayush [place] 2019-09-22 2019-09-22 Outpatient ALYSON RojasMISCHER MHMISCHER [id number] 10:00:00 23:59:59 Brett 00 [place] 2019-09-22 2019-09-22 Outpatient MHIE MHIE [id number] Memoria 10:00:00 10:00:00 00 rafaela Pro 2019-08-04 2019-08-04 Telephone JOSE M Benitez 1.2.840.114 [id number] 00:00:00 00:00:00 Amita HARRIS 350.1.13.10 [facility] 4.2.7.2.686 [id number] 2019-08-04 2019-08-04 Telephone JOSE M Long [id number] 00:00:00 00:00:00 Silvia HARRIS 350.1.13.10 [facility] 4.2.7.2.686 [id number] 2019-08-02 2019-08-02 Urgent Pob1, Acute [facility] 1.2.840.114 [id number] 08:02:14 08:22:14 [facility] 350.1.13.10 [place] 4.2.7.2.686 Professpaulette [id number] [facility] 044 [address] One Results This patient has no known results.
--- NOTE | 2020-12-10 08:25 | RAD REPORT ---
EXAM DESCRIPTION: RAD - Chest Single View - 12/10/2020 8:15 am CLINICAL HISTORY: COUGH COMPARISON: Single View dated 09/05/2020; Chest Single View dated 06/01/2020; Chest Single View dated ; Chest Pa And Lat (2 Views) dated 11/19/2016 FINDINGS: No evidence of edema or pneumonia. The heart size is within normal limits.No acute osseous abnormality. No significant pleural effusions or pneumothorax. IMPRESSION: No acute cardiopulmonary disease.
--- NOTE | 2020-12-10 09:07 | ER ---
Nurse's Notes [facility] Name: Alec Ortzi Jr Age: 65 yrs Sex: Male : 1955 Arrival Date: 12/10/2020 Time: 06:30 Bed Waiting Private MD: Diagnosis: Viral infection, unspecified Presentation: 12/10 07:49 Chief complaint: Patient states: fever, congestion and chest discomfort patient iw believes it may be from coughing that is worse with taking a deep breath. Coronavirus screen: Client presents with at least one sign or symptom that may indicate coronavirus-19. Standard/surgical mask placed on the client. Provider contacted for isolation considerations. Ebola Screen: Patient denies exposure to infectious person. Patient denies travel to an Ebola-affected area in the 21 days before illness onset. Initial Sepsis Screen: Does the patient meet any 2 criteria? No. Patient's initial sepsis screen is negative. Does the patient have a suspected source of infection? No. Patient's initial sepsis screen is negative. Risk Assessment: Do you want to hurt yourself or someone else? Patient reports no desire to harm self or others. Onset of symptoms was December 09, 2020. 07:49 Method Of Arrival: Ambulatory iw 07:49 Acuity: WILLA 3 iw Historical: - Allergies: 07:54 Codeine; iw 07:54 PENICILLINS; iw - Home Meds: 07:54 amlodipine 10 mg tab 1 tab once daily [Active]; baclofen 10 mg Oral tab [Active]; iw Cymbalta 30 mg Oral cpDR 1 cap once daily [Active]; gabapentin 300 mg Oral cap [Active]; glimepiride 2 mg Oral tab 1 tab once daily [Active]; lisinopril 40 mg Oral tab 1 tab once daily [Active]; metformin 500 mg Oral tab 1 tab 2 times per day [Active]; pravastatin 20 mg Oral tab 1 tab once daily [Active]; - PMHx: 07:54 Diabetes - NIDDM; Hypertension; iw - Immunization history:: J\T\J vaccine . - Social history:: Smoking status: Patient denies any tobacco usage or history of. Screenin:54 Abuse screen: Denies threats or abuse. Denies injuries from another. Nutritional iw screening: No deficits noted. Tuberculosis screening: Never had TB. Fall Risk None identified. Assessment: 07:51 General: Appears comfortable, ill, Behavior is calm, cooperative, Reports chills for iw fever for feeling ill for fatigue for. Pain: Complains of pain in left breast Pain does not radiate. Pain currently is 6 out of 10 on a pain scale. Pain began Is continuous. Neuro: Level of Consciousness is awake, alert, obeys commands, Oriented to person, place, time, situation. Cardiovascular: Capillary refill < 3 seconds is brisk in bilateral fingers. Respiratory: Airway is patent Respiratory effort is even, unlabored, Respiratory pattern is regular, symmetrical. GI: Patient currently denies abdominal pain, diarrhea, nausea, vomiting. : No signs and/or symptoms were reported regarding the genitourinary system. EENT: Nares are clear Oral mucosa is moist. Derm: Skin is intact, is healthy with good turgor, Skin is dry, Skin is pink, warm \T\ dry. normal. Vital Signs: 07:49 BP 103 / 70; Pulse 93; Resp 16; Temp 98.4(TE); Pulse Ox 99% on R/A; iw 07:54 Weight 97.07 kg; Height 5 ft. 6 in. (167.64 cm); Pain 6/10; iw 07:54 Body Mass Index 34.54 (97.07 kg, 167.64 cm) iw ED Course: 06:30 Patient arrived in ED. wm 07:41 Diego Sahni is Attending Physician. sp3 07:49 Arm band placed on right wrist. iw 07:51 Triage completed. iw 07:54 Patient has correct armband on for positive identification. Bed in low position. Call iw light in reach. oxygen therapist on. Pulse ox on. NIBP on. 07:54 Patient maintains SpO2 saturation greater than 95% on room air. iw 08:15 CXR XRAY In Process Unspecified. EDMS 09:24 No provider procedures requiring assistance completed. Patient did not have IV access ss during this emergency room visit. Administered Medications: No medications were administered Outcome: 09:06 Discharge ordered by . sp3 09:24 Discharged to home ambulatory. ss 09:24 Condition: good 09:24 Discharge instructions given to patient, Instructed on discharge instructions, follow up and referral plans. Demonstrated understanding of instructions, follow-up care, medications. 09:25 Patient left the ED. ss Signatures: Dispatcher [employer] Linda Brasher, RN RN Leah Parra RN RN Becka Chavez Setul sp3
--- NOTE | 2020-12-10 09:07 | EDPHYS ---
Physician Documentation [facility] Name: Alec Ortiz Jr Age: 65 yrs Sex: Male : 1955 Arrival Date: 12/10/2020 Time: 06:30 Bed Waiting Private MD: ED Physician Diego Sahni HPI: 12/10 08:03 The patient reports fever, that was measured at 101 degrees Fahrenheit. Onset: The sp3 symptoms/episode began/occurred gradually, 2 day(s) ago. Modifying factors: Associated signs and symptoms: Pertinent positives: chills, cough, shortness of breath, Pertinent negatives: abdominal pain, altered mental status. Severity of symptoms: in the emergency department the symptoms have improved. 08:04 65-year-old male with a history of diabetes, hypertension, hyperlipidemia presents with sp3 cough, fever to 101 T-max, after a sick contact at a child's birthday constitution party. Patient reports that his chest pain is not similar to his chest pains in the past and is very mild in nature and the predominant reason he is in the hospital is for his mild cough and concern for COVID-19. Patient states he has mild shortness of breath on exertion but is otherwise okay and again is mainly concerned about his cough and fever. Patient denies significant chest pain, back pain, abdominal pain, pain in his left arm, pain in his jaw, nausea, vomiting, diarrhea, headache, any other ROS at this time.. Historical: - Allergies: 07:54 Codeine; iw 07:54 PENICILLINS; iw - Home Meds: 07:54 amlodipine 10 mg tab 1 tab once daily [Active]; baclofen 10 mg Oral tab [Active]; iw Cymbalta 30 mg Oral cpDR 1 cap once daily [Active]; gabapentin 300 mg Oral cap [Active]; glimepiride 2 mg Oral tab 1 tab once daily [Active]; lisinopril 40 mg Oral tab 1 tab once daily [Active]; metformin 500 mg Oral tab 1 tab 2 times per day [Active]; pravastatin 20 mg Oral tab 1 tab once daily [Active]; - PMHx: 07:54 Diabetes - NIDDM; Hypertension; iw - Immunization history:: J\\T\\J vaccine . - Social history:: Smoking status: Patient denies any tobacco usage or history of. ROS: 08:06 Constitutional: Positive for chills, fatigue, fever. sp3 08:06 Cardiovascular: Negative for edema, palpitations. 08:06 Respiratory: Positive for cough, shortness of breath, Negative for 08:06 Abdomen/GI: Negative for abdominal pain, nausea and vomiting, nausea, vomiting, bowel incontinence, acute changes. 08:06 All other systems are negative. Exam: 08:07 Constitutional: This is a well developed, well nourished patient who is awake, alert, sp3 and in no acute distress. Head/Face: Normocephalic, atraumatic. Eyes: Pupils equal round and reactive to light, extra-ocular motions intact. Lids and lashes normal. Conjunctiva and sclera are non-icteric and not injected. Cornea within normal limits. Periorbital areas with no swelling, redness, or edema. ENT: Nares patent. No nasal discharge, no septal abnormalities noted. External auditory canals are clear. Oropharynx with no redness, swelling, or masses, exudates, or evidence of obstruction, uvula midline. Mucous membranes moist. Neck: Trachea midline, no thyromegaly or masses palpated, and no cervical lymphadenopathy. Supple, full range of motion without nuchal rigidity, or vertebral point tenderness. No Meningismus. Chest/axilla: Normal chest wall appearance and motion. Nontender with no deformity. No lesions are appreciated. Cardiovascular: Regular rate and rhythm with a normal S1 and S2. No gallops, murmurs, or rubs. Normal PMI, no JVD. No pulse deficits. Respiratory: Lungs have equal breath sounds bilaterally, with scattered rhonchi and no wheezing. No increased work of breathing, no retractions or nasal flaring. Abdomen/GI: Soft, non-tender, with normal bowel sounds. No distension or tympany. No guarding or rebound. No evidence of tenderness throughout. Back: No spinal tenderness. No costovertebral tenderness. Full range of motion. Skin: Warm, dry with normal turgor. Normal color with no rashes, no lesions, and no evidence of cellulitis. MS/ Extremity: Pulses equal, no cyanosis. Neurovascular intact. Full, normal range of motion. Neuro: Awake and alert, GCS 15, oriented to person, place, time, and situation. Cranial nerves II-XII grossly intact. Motor strength 5/5 in all extremities. Sensory grossly intact. Cerebellar exam normal. Normal gait. Psych: Awake, alert, with orientation to person, place and time. Behavior, mood, and affect are within normal limits. Vital Signs: 07:49 BP 103 / 70; Pulse 93; Resp 16; Temp 98.4(TE); Pulse Ox 99% on R/A; iw 07:54 Weight 97.07 kg; Height 5 ft. 6 in. (167.64 cm); Pain 6/10; iw 07:54 Body Mass Index 34.54 (97.07 kg, 167.64 cm) iw MDM: 08:01 Patient medically screened. sp3 08:10 ED course: 0811: Patient with likely mild course of COVID-19 despite having Dani \\T\\ sp3 Dani vaccine. Will obtain chest x-ray and EKG and a COVID-19 nasopharyngeal test. Patient is stable and will be discharged to isolation with the assumption that he is positive. We will call him with the results. EKG reviewed which demonstrates normal sinus rhythm at 95 bpm with normal intervals, small Q-wave in lead III and nonspecific ST/T changes diffusely. Chest x-ray is pending.. 09:00 ED course: Chest x-ray is negative and his vital signs remain normal with normal pulse sp3 oxygenation. Will discharge patient at this time with isolation precautions, OTC Tylenol and ibuprofen for fever control, and OTC multivitamin instructions.. 09:09 Data reviewed: vital signs, nurses notes, radiologic studies. sp3 12/10 07:57 Order name: COVID-19 : Document "Date of Symptom Onset" if Symptomatic. sp3 12/10 07:57 Order name: EKG; Complete Time: 07:58 sp3 12/10 07:57 Order name: EKG - Nurse/Tech sp3 12/10 07:57 Order name: CXR XRAY sp3 EC:15 Rhythm is regular. QRS [place] is Normal. NM interval is normal. QRS interval is normal. sp3 QT interval is normal. Q waves are Present. T waves are Normal. Administered Medications: No medications were administered Disposition Summary: 12/10/20 09:06 Discharge Ordered Location: Home sp3 Problem: new sp3 Symptoms: are unchanged sp3 Condition: Stable sp3 Diagnosis - Viral infection, unspecified sp3 Followup: sp3 - With: Private Physician - When: As needed - Reason: Discharge Instructions: - Discharge Summary Sheet sp3 - Viral Respiratory Infection sp3 Forms: - Medication Reconciliation Form sp3 - Thank You Letter sp3 - Antibiotic Education sp3 - Work release form ss - Prescription Opioid Use sp3 Signatures: Dispatcher [employer] EDLinda Hodges RN RN iw Patel, Setul sp3 Corrections: (The following items were deleted from the chart) 08:06 08:03 Severity of symptoms: in the emergency department the symptoms have improved sp3 sp3 09:13 07:58 CORONAVIRUS ordered. EDMS EDMS
[2020-12-10 09:31] VITALS: BP 103/70; TEMP 98.4; O2SAT 99
--- NOTE | 2020-12-11 16:58 | EKG ---
Test Date: 2020-12-10 Test Time: 08:03:39 Portable Track Line Marker: LEE MEASUREMENT RESULTS: Intervals: Rate: 95 [place]: 148 QRSD: 84 QT: 342 QTc: 429 [place]: P: 47 [place]: 148 QRS: 76 T: 32 INTERPRETIVE STATEMENTS: Normal sinus rhythm Normal ECG Compared to ECG 09/05/2020 13:08:04 No significant changes Electronically Signed On 12-11-20 16:53:58 CDT by Vignesh Ying
== END 2020-12-10 09:25 | disposition home or self-care (01) ==
LOC: ER 06:29
DX: U07.1 COVID-19 (principal); B34.9 Viral infection, unspecified; E11.9 Type 2 diabetes mellitus without complications; I10 Essential (primary) hypertension; Z88.0 Allergy status to penicillin; Z88.5 Allergy status to narcotic agent
CPT/HCPCS: 93005; 71045; 99284; U0003

== ENCOUNTER 2021-06-20 11:27 | Day surgery (SDC) | payer BC, OTHER ==
[2021-06-19 09:11] VITALS: BMI 33.7
--- NOTE | 2021-06-19 09:40 | RAD REPORT ---
EXAM DESCRIPTION: RAD - Chest Pa And Lat (2 Views) - 06/19/2021 9:33 am CLINICAL HISTORY: pre op, pending heart catheterization, history of coronary artery stents, diabetes and hypertension COMPARISON: Single-view chest 12/10/2020 TECHNIQUE: Frontal and lateral views of the chest were obtained. FINDINGS: The lungs are slightly underinflated compared to the prior study. No peripheral mass or co nsolidation. Interstitial pattern matches prior imaging. No failure, volume overload or other acute c ardiopulmonary finding. Heart size is normal and central vasculature is within normal limits. No pleural effusion or pneu mothorax seen. No acute bony finding noted. No aortic abnormality. IMPRESSION: No acute cardiopulmonary process. No significant change from comparison study.
[2021-06-19 09:58] LABS: Absolute Lymphocytes (CBC) 1.3 K/uL (0.7-4.9); Hematocrit 39.8 % (39.6-49.0); Lymphocytes % 22.1 % (15.3-44.8); MPV 8.1 fL (7.6-11.3); RBC Red Blood Cell Count 4.72 M/uL (4.33-5.43)
[2021-06-19 10:19] LABS: Potassium 4.6 mmol/L (3.5-5.1)
[2021-06-20] MEDS ORDERED: HEPA 1000U/500MLS 2,000 UNIT/1,000 ML BAG IV ONE (11:29)
[2021-06-20] MEDS ORDERED: NA CHLORIDE 0.9% 500 ML ONE (12:00)
[2021-06-20 12:34] VITALS: TEMP 98.1
[2021-06-20] MEDS ORDERED: MIDAZOLAM HCL 2 MG/2 ML INJ ONE (15:25)
[2021-06-20] MEDS ORDERED: FENTANYL CITR 100 MCG/2 ML ONE ×2 (15:25→16:51)
[2021-06-20] MEDS ORDERED: VERAPAMIL HCL 10 MG/4 ML VIAL IV ONE (15:26)
[2021-06-20] MEDS ORDERED: HEPARIN 10,000 UNIT/10 ML VIAL IV ONE (15:26)
[2021-06-20] MEDS ORDERED: ATROPINE SULF 1 MG/10 ML SYR IV ONE (15:27)
[2021-06-20] MEDS ORDERED: TICAGRELOR 90 MG TABLET PO ONE (15:27)
[2021-06-20] MEDS ORDERED: CLOPIDOGREL 75 MG TABLET ONE (15:27)
[2021-06-20] MEDS ORDERED: ASPIRIN 325 MG TAB ONE (15:27)
[2021-06-20] MEDS ORDERED: HEPARIN 5000 UNIT/ML 1 ML VIAL ONE (15:28)
[2021-06-20 17:38] VITALS: O2SAT 97
[2021-06-20 18:17] VITALS: BP 124/59
--- NOTE | 2021-06-21 00:47 | OP ---
Date of Procedure: 06/20/2021 Surgeon: ROBERTO SCHMIDT Procedures Performed: 1.Selective coronary angiogram. 2.Left heart catheterization. Access: Right radial artery 6-Prydeinig closed with TR band. Complications: None. Bleeding: Less than 10 mL. Description Of Procedure: After risks, benefits, and alternatives were explained, the patient agreed to the procedure and signed informed consent. The patient was brought into cardiac catheterization laboratory, prepped and draped in usual sterile fashion. I accessed right radial artery using pediat nae micropuncture kit. Given fentanyl and Versed in incremental doses to achieve adequate moderate s edation. Total sedation time was 25 minutes. Then, I took a 6-Prydeinig [place] 4.0 catheter into the ao rtic root, engaged left main and right coronary artery, took standard views and then catheter was pus hed over the wire into the LV. LVEDP was measured and pullback did not record any gradient. Findings: 1.Left main; large, normal. 2.LAD; moderate size with proximal 40% to 50% stenosis, unchanged from previous angiogram. Diagonal branches are normal. 3.Left circumflex; large and dominant. No significant disease. OM 1 branch has a stent that was pl aced by myself earlier and it is widely patent and no stenosis in it. 4.RCA; small size vessel. No disease. 5.LVEDP of 9 mmHg. Conclusion: 1.Patent OM1 stent. 2.Mild proximal LAD disease, unchanged from previous. 3.Normal LVEDP of 9 mmHg. Plan: Medical management. SR/MODL Voice ID: [id number] Report ID: [id number]
== END 2021-06-20 18:18 | disposition home or self-care (01) ==
LOC: CCL 11:27
PROVIDERS: ATTEND Internal Medicine
DX: I25.110 Atherosclerotic heart disease of native coronary artery with unstable angina pectoris (principal); I10 Essential (primary) hypertension; E11.9 Type 2 diabetes mellitus without complications; E78.5 Hyperlipidemia, unspecified; Z95.5 Presence of coronary angioplasty implant and graft; Z79.82 Long term (current) use of aspirin; Z79.4 Long term (current) use of insulin; Z79.899 Other long term (current) drug therapy; Z88.0 Allergy status to penicillin; Z88.6 Allergy status to analgesic agent; Z88.8 Allergy status to other drugs, medicaments and biological substances; Z20.822 Contact with and (suspected) exposure to COVID-19; Z82.49 Family history of ischemic heart disease and other diseases of the circulatory system
CPT/HCPCS: 85025; 80048; 36415; 85610; 82947; 85730; 71046; 93458; U0003; C1893; J1644 ×2; J2250; J3010 ×2; J7040

== ENCOUNTER 2021-11-01 06:30 | Day surgery (SDC) | payer BC, OTHER ==
[2021-10-30 17:45] LABS: Absolute Lymphocytes (CBC) 1.8 K/uL (0.7-4.9); Hematocrit 40.7 % (39.6-49.0); MCV 84.3 fL (80-100); MPV 8.6 fL (7.6-11.3); RBC Red Blood Cell Count 4.82 M/uL (4.33-5.43)
[2021-10-30 17:46] LABS: Protime INR 1.03
[2021-10-30 17:50] LABS: Potassium 4.2 mmol/L (3.5-5.1)
[2021-10-31 08:07] LABS: SARS-CoV-2 Antigen Rapid Res Negative (Negative)
[2021-11-01] MEDS ORDERED: HEPA 1000U/500MLS 2,000 UNIT/1,000 ML BAG IV ONE (06:49)
[2021-11-01] MEDS ORDERED: VERAPAMIL HCL 10 MG/4 ML VIAL IV ONE (06:50)
[2021-11-01] MEDS ORDERED: HEPARIN 5000 UNIT/ML 1 ML VIAL ONE (06:50)
[2021-11-01] MEDS ORDERED: FENTANYL CITR 100 MCG/2 ML ONE (06:50)
[2021-11-01] MEDS ORDERED: MIDAZOLAM HCL 2 MG/2 ML INJ ONE (06:50)
[2021-11-01] MEDS ORDERED: HEPARIN 10,000 UNIT/10 ML VIAL IV ONE (06:51)
[2021-11-01] MEDS ORDERED: NA CHLORIDE 0.9% 500 ML ONE ×3 (06:57→10:10)
[2021-11-01 07:15] VITALS: TEMP 97.1
[2021-11-01] MEDS ORDERED: CLOPIDOGREL 75 MG TABLET ONE (07:41)
[2021-11-01] MEDS ORDERED: ASPIRIN 325 MG TAB ONE (07:41)
[2021-11-01] MEDS ORDERED: HEPA 1000U/500MLS 1,000 UNIT/500 ML BAG IV ONE (08:43)
[2021-11-01] MEDS ORDERED: REGADENOSON 0.4 MG/5 ML SYR IV ONE ×2 (08:57→09:14)
[2021-11-01] MEDS ORDERED: ONDANSETRON 4 MG/2 ML VIAL ONE (09:19)
[2021-11-01] MEDS ORDERED: ACETAMINOPHEN 325 MG TABLET ONE (11:17)
[2021-11-01 14:26] VITALS: BP 124/72; O2SAT 97
--- NOTE | 2021-11-01 23:10 | OP ---
Date of Procedure: 11/01/2021 Surgeon: ROBERTO SCHMIDT Procedure Performed: 1.Selective coronary angiogram. 2.Fractional flow reserve of the proximal mid left anterior descending. 3.Percutaneous coronary intervention of the mid left anterior descending, severe stenosis used 3.5 x 32 mm Synergy drug-eluting stent. Indication: Unstable angina with abnormal stress test. Access: Right radial artery filled, so second access was right femoral artery, 6-[place] closed with 6-[place] Angio-Seal. Complications: None. Bleeding: Less than 20 mL. Anesthesia: Total sedation time was 75 minutes, used Fentanyl and versed. Description Of Procedure: After risks, benefits, and alternatives were explained, the patient agreed to the procedure and signed informed consent. The patient was brought into cardiac catheterization laboratory, prepped and draped in usual sterile fashion. Then, we accessed right radial artery using pediatric micropuncture kit, placed 6-[place] slender sheath. I could not engage all coronary arteri es due to significant tortuosity, so appended this access and placed TR band and then using ultrasoun d guidance and fluoroscopy and micropuncture kit to access the right femoral artery, placed a 6-Frenc h [place] sheath and then took a 6-[place] JL4 catheter, aortic root, engaged left main, took standar d views and a 6-[place] JR4 catheter in the RCA and took standard views and then an exchanged for XB35 and engaged left main gave systemic heparin to assure ACT level above 250 and then took an FFR wire into the aortic root and equalized pressure and then advanced the wire into the LAD passing the mid a nd proximal LAD stenosis. FFR was recorded at 0.80 to 0.81. The patient claimed that he has signifi cant symptoms on minimal exertion, will get chest pain just taking the trash out, so decided to proce ed with PCI of the mid LAD, as there was a significant jump in the FFR numbers at the mid LAD more th an the proximal, so the lesion was prepped using a 3.0 x 15 mm compliant balloon and then placed a 3. 5 x 32 mm Synergy drug-eluting stent with excellent results. I then removed the catheter and the wir e and removed the sheath and placed a 6-[place] Angio-Seal with good hemostasis. Findings: 1.Left main is normal and large. 2.LAD proximal 40% and mid 70% and then distal 40%. FFR of the mid LAD disease was 0.80 and status post successful PCI as above, diagonal branches appears to be normal. 3.Left circumflex large and very large and dominant with patent OM1 stent and no disease otherwise. 4.RCA small and dominant, no disease. 5.LVEDP was normal at 30 mmHg. Conclusion: 1.Severe mid LAD stenosis, status post FFR guided and successful PCI as outlined above using a 3.5 x 32 mm Synergy drug-eluting stent. 2.Normal LVEDP. 3.No significant coronary disease, otherwise. Recommendation: Continue aspirin, Plavix high-dose statins. Follow up with me next week. SR/[place] Voice ID: [id number] Report ID: [id number]
== END 2021-11-01 14:00 | disposition home or self-care (01) ==
LOC: CCL 06:30
PROVIDERS: ATTEND Internal Medicine
DX: I25.110 Atherosclerotic heart disease of native coronary artery with unstable angina pectoris (principal); I10 Essential (primary) hypertension; E11.9 Type 2 diabetes mellitus without complications; E78.5 Hyperlipidemia, unspecified; Z95.5 Presence of coronary angioplasty implant and graft; Z88.0 Allergy status to penicillin; Z88.5 Allergy status to narcotic agent; Z20.822 Contact with and (suspected) exposure to COVID-19; Z82.49 Family history of ischemic heart disease and other diseases of the circulatory system
CPT/HCPCS: 85025; 80048; 36415; 85610; 82947; 85347 ×2; 85730; 93458; 76937; 93571; 87811; C1893; C1760; Q9967; G0269; C1725; C1877; C9600; J1644 ×3; J2785 ×2; J7040 ×3; J2405; C1769; J2250; J3010

== ENCOUNTER 2022-01-15 16:14 | Emergency (ER) | payer BC, OTHER ==
--- OUTSIDE RECORDS SUMMARY | 2022-01-15 16:19 | XMS REPORT | Continuity of Care Document ---
:1955 Author Organization [facility] t Address [address] [place] [place] [address] Care Team Providers Name Role Phone Rome Juarez Attending Clinician Unavailable TRE LOUISE Attending Clinician Unavailable Brett Rojas Attending Clinician Carla Jha Attending Clinician ESTIVEN SAHNI Attending Clinician Unavailable Therapy, [facility] Covid Infusion Attending Clinician Unavailable Estiven Sahni MD Attending Clinician Doctor Unassigned, [place] Attending Clinician Unavailable Tre Louise MD Attending Clinician Only, [facility] Test Attending Clinician Unavailable Lab, [facility] Fam Pob I Attending Clinician Unavailable Christine Gregory MD Attending Clinician CHRISTINE GREGORY Attending Clinician Unavailable Pob, [facility] Lab Main Attending Clinician Unavailable Eli MAGANA, Amita Ge Attending Clinician Unavailable Silvia Carmona Attending Clinician BARBARA WOOD Attending Clinician Unavailable Pob1, Acute [facility] Attending Clinician Unavailable Barbara Wood MD Attending Clinician TRE LOUISE Admitting Clinician Unavailable Tre Louise MD Admitting Clinician Payers Payer Name Policy Type Policy Number Effective Date Expiration Date Abbey dumas [facility] [id number] 2018 00:00:00 Problems Condition Condition Condition Status Onset Resolution Last Treating Co mments Source Name Details Category Date Date Treatment Clinician Date No known No known Disease Unive rs active active ity of problems problems [facility] Diabetes Diabetes Problem Resolve 2021-11-10 Memoria mellitus mellitus d 03:51:39 l in mother in mother Herm candace complicati complicati ng ng childbirth childbirth (disorder) (disorder) Resolved Problem 11/10/2021 [facility] Cervical Cervical Problem Active 2021-11-10 Memoria radiculopa radiculopa 03:51:39 l thy thy Pro (disorder) (disorder) Active Problem 11/10/2021 [facility] Diabetes Diabetes Problem Active 2021-11-10 Memoria mellitus mellitus 03:51:39 l (disorder) (disorder) He rmann Active Problem 11/10/2021 [facility] Hypertensi Problem Active 2021-11-10 M emoria ve Hypertensi 03:51:39 l disorder, ve [place] systemic disorder, arterial systemic (disorder) arterial (disorder) Active Problem 11/10/2021 [facility] Neuro Lumbar Lumbar Problem Active 2021-11-10 Trino rhoda radiculopa radiculopa 03:51:39 l thy thy Pro (disorder) (disorder) Active Problem 11/10/2021 [facility] Neuro Paresthesi Paresthes Problem Active 2021-11-10 Memoria a ia 03:51:39 l (finding) (finding) Herm candace Active Problem 11/10/2021 [facility] Neuro Peripheral Periphera Problem Active 2021-11-10 Memoria nerve l nerve 03:51:39 l disease disease [place] (disorder) (disorder) Active Problem 11/10/2021 [facility] Neuro Simple Simple Problem Active 2021-11-10 Trino rhoda obesity obesity 03:51:39 l (disorder) (disorder) He rmann Active Problem 11/10/2021 [facility] Coronary Coronary Problem Active 2021-11-10 Memoria arterioscl arterioscl 03:51:39 l erosis erosis Pro (disorder) (disorder) Active Problem 11/10/2021 [facility] Pain in Pain in Problem Active 2021-11-10 Me moria testicle testicle 03:51:39 l (finding) (finding) Herm candace Active Problem 11/10/2021 [facility] Late Late Problem Active 2021-11-10 Memor ia ejaculatio ejaculatio 03:51:39 l n n [place] (finding) (finding) Active Problem 11/10/2021 [facility] Neuro Prostatiti Prostatit Problem Active 2021-11-10 Memoria s is 03:51:39 l (disorder) (disorder) He rmann Active Problem 11/10/2021 [facility] Benign Benign Problem Active 2021-11-10 Trino rhoda prostatic prostatic 03:51:39 l hypertroph hypertroph He rmann without without outflow outflow obstructio obstructio n n (disorder) (disorder) Active Problem 11/10/2021 [facility] Erectile Erectile Problem Active 2021-11-10 Memoria dysfunctio dysfunctio 03:51:39 l n n Active Pro Problem 11/10/2021 [facility] her Neuro Allergies, Adverse Reactions, Alerts Allergy Allergy Status Severity Reaction(s) Onset Inactive Treating Comm ents Source Name Type Date Date Clinician PENICILL Drug Active Other-Cmnt 2020-0 Univ ers INS Class 08-01 ity of 00:00: [place] 00 Medical Branch CODEINE DRUG Active Other-Cmnt 2020-0 Unive rs INGREDI 08-01 ity of 00:00: [place] 00 Medical [facility] Codeine Propensi Active Other - See 2020-0 Un cookie ty to comments 08-01 ity of adverse 00:00: [place] reaction 00 Medical s Branch Penicill Propensi Active Other - See 2020-0 U nivers ins ty to comments 08-01 ity of adverse 00:00: [place] reaction 00 Medical s Branch NO KNOWN Drug Active Univers ALLERGIE Class ity of [facility] codeine codeine Active Memoria l Pro penicill penicill Active Memori a in in l Pro Social History Social Habit Start Date Stop Date Quantity Comments Source Exposure to Not sure [facility] SARS-CoV-2 (event) Medica l Branch Tobacco use and 2020-11-29 2020-11-29 Never used [facility] exposure 00:00:00 00:00:00 [facility] Social History 2020-11-16 2020-11-16 [facility] 20:18:11 20:18:11 [birth year] [facility] 00:00:00 00:00:00 Medical Branch Smoking Status Start Date Stop Date Source Never smoker [facility] Unknown if ever smoked [facility] Medications Ordered Filled Start Stop Current Ordering Indication Dosage Frequency Signature Comments Components Source Medication Medication Date Date Medication? Clinician (SIG) Name Name Miguel 600 Yes 600 mg = 1 Memoria mg/24 hours 7-14 tab, PO, l oral tablet 21:00: Bedtime, # Pro 00 30 tab, 1 Refill(s), Pharmacy: [facility] #[id number], 170.18, cm, 11/07/21 15:46:00 CDT, Height, 98.636, kg, 11/07/21 15:46:00 CDT, Weight tamsulosin Yes 0.4 mg = 1 M emoria 0.4 mg oral 6-07 cap, PO, l capsule 22:04: Daily, # Kunal n 00 30 cap, 3 Refill(s), Pharmacy: [facility] #[id number], 170.18, cm, 09/16/21 14:27:00 CDT, Height, 101.563, kg, 09/16/21 14:27:00 CDT, Weight Trimix Yes Trimix, 6 Memori a 6-07 units, l 22:04: intraCAVER [place] 00 NOSAL, Q24H, PRN sexual intercours e, Papaverine 30mg/mL, Phentolami ne 1mg/mL, Prostaglan din E1 10mcg/mL. 5 mL vial, # 5 mL, Refill(s) 0, Pharmacy: [facility], 170.18, cm, 09/16/21 14:27:00 CDT, Height, 101.563, kg, ... Toujeo Max Yes SUB-Q, Memor ia SoloStar 6-07 Daily, 0 l 21:06: Refill(s) Pro 00 baclofen 10 Yes 10 mg = 1 M emoria mg oral 5-23 tab, PO, l tablet 19:41: TID, 0 Pro 00 Refill(s) Flomax 0.4 Yes 0.4 mg = 1 M emoria mg oral 5-23 cap, PO, l capsule 19:40: Daily, 0 Kunal n 00 Refill(s) Basaglar Yes 10 unit, Memor ia KwikPen 5-23 SUB-Q, l 19:40: Daily, 0 [place] 00 Refill(s) Plavix 75 Yes 75 mg = 1 Mem oria mg oral 5-23 tab, PO, l tablet 19:39: Daily, 0 [place] 00 Refill(s) Lipitor 40 Yes 40 mg = 1 Me moria mg oral 5-23 tab, PO, l tablet 19:39: Daily, 0 [place] 00 Refill(s) DULoxetine Yes See Memoria 60 mg oral 5-23 Instructio l delayed 16:44: ns, TAKE 1 Herm candace release 00 CAPSULE BY capsule MOUTH EVERY DAY, # 30 unknown unit, 1 Refill(s), Pharmacy: [facility] #[id number], 167.64, cm, 08/20/21 15:12:00 CDT, Height, 101.506, kg, 08/20/21 15:12:00 CDT, Weight Ativan 0.5 Yes See Memoria mg oral 3-04 Instructio l tablet 00:19: ns, Take 1 Mera nn 00 tab po 1 hour prior to MRI, may repeat q 15 min. if still anxious, # 5 tab, 0 Refill(s), Pharmacy: [facility] #[id number], 162.56, cm, 06/25/21 13:26:00 [employer], Height, 98.636, kg, 06/25/21 13:26:00 [employer], Weight DULoxetine 2020-04 Yes See Memoria 60 mg oral 2-20 Instructio l delayed 19:26: ns, TAKE Kunal n release 00 ONE (1) capsule CAPSULE(S) BY MOUTH ONCE A DAY., # 30 ea, 5 Refill(s), Pharmacy: [place] [id number], 167.64, cm, 11/16/20 15:25:00 CDT, Height, 100, kg, 11/16/20 15:25:00 CDT, Weight casirivimab 2020- No [id number] 1200mg Univers -imdevimab 12-11 ity of (REGEN-COV 19:45: 20:04 [place] (EUA)) 00 :00 Medical 1,200 mg in Branch NaCl 0.9% (NS) 60 mL IV infusion casirivimab 2020- No [id number] 1200mg 1,200 mg, Univers -imdevimab 12-11 IV ity of (REGEN-COV 19:45: 20:04 Infusion, [place] (EUA[place] 00 :00 ONCE, Tue Medical 1,200 mg in 12/11/20 at Br anch NaCl 0.9% 1445, For (NS) 60 mL 1 IV infusion dose
Ad director of community life as an IV infusion via pump or gravity over at least 60 minutes through an intravenou s line containing a sterile, in-line or add-on 0.2-micron polyethers ulfone (PES) filter.&nb sp;Stable 36 hours refrigerat ed; 4 hours at room temperatur e. &nbs p;
sodium 2020-0 Yes PRN, Univers chloride 11-28 Starting ity of (NS) 14:31: Thu11/28/20 [place] injection 00 at 0931, Medica l Until Discontinu ed, Routine, Intra-op sodium 1-0 202- No PRN, Univers chloride 8-08 02- Starting ity of (NS) 14:31: 17:19 Thu11/28/20 [place] injection 00 :28 at 0931, Medica l Until Thu11/28/20 at 1219, Routine, Intra-op neomycin-po 2020-0 Yes PRN, Univer s lymyxin-dex 8 Starting ity of amethasone 14:30: Thu11/28/20 [place] (MAXITROL) 00 at 0930, Medic al 3.5 Until Branch mg/g-10,000 Discontinu unit/g-0.1 ed, % Routine, ophthalmic Intra-op ointment Hyaluronida Yes PRN, Univer s se, Human 11-28 Starting ity of Recomb. 14:30: 11/28/20 [place] (HYLENEX[place] 00 at 0930, Medica l injection Until Branch Discontinu ed, Routine, Intra-op neomycin-po 2020- No PRN, Unive rs lymyxin-dex 11-28 Starting ity of amethasone 14:30: 17:19 11/28/20 [place] (MAXITROL) 00 :28 at 0930, Medic al 3.5 Until Wed Branch mg/g-10,000 11/28/20 at unit/g-0.1 1219, % Routine, ophthalmic Intra-op ointment Hyaluronida 2020- No PRN, Unive rs se, Human 11-28 Starting ity o f Recomb. 14:30: 17:19 11/28/20 [place] (HYLENEX) 00 :28 at 0930, Medica l injection Until Wed Branc h 11/28/20 at 1219, Routine, Intra-op water for Yes PRN, Univers irrigation 11-28 Starting ity o f irrigation 14:29: Thu11/28/20 [place] solution 00 at 0929, Medical Until Branch Discontinu ed, Routine, Intra-op water for 2020- No PRN, Univers irrigation 11-28 Starting ity of irrigation 14:29: 17:19 11/28/20 [place] solution 00 :28 at 0929, Medical Until Wed Branch 11/28/20 at 1219, Routine, Intra-op eye block Yes PRN, Univers syringe 11-28 Starting ity o f mL 14:26: 11/28/20 [place] 00 at 0926, Medical Until Branch Discontinu ed, Intra-op eye block 2020- No PRN, Univers syringe 11 11-28 Starting ity of mL 14:26: 17:19 11/28/20 [place] 00 :28 at 0926, Medical Until Wed Branch 11/28/20 at 1219, Intra-op EPINEPHrine Yes PRN, Univer s 1:1,000 (1 11-28 Starting ity o f mg/mL) 14:22: 11/28/20 [place] (ADRENALIN) 00 at 09, Medi jared injection Until Branch Discontinu ed, Routine, Intra-op DUOVISC Yes PRN, Univers (DUOVISC 11-28 Starting ity of VISCO 14:22: 11/28/20 [place] ELASTIC) 3 00 at 09, Medic al %-4 %(0.5 Until Branch mL) 1 % Discontinu (0.55 mL) ed, intraocular Routine, injection Intra-op dexamethaso Yes PRN, Univer s ne 11-28 Starting ity of (DECADRON 14:22: 11/28/20 [place] PHOSPHATE) 00 at 09, Medic al injection Until Branch Discontinu ed, Routine, Intra-op carbachoL Yes PRN, Univers (MIOSTAT) 11-28 Starting ity of 0.01 % 14:22: 11/28/20 [place] intraocular 00 at 09, Medi jared injection Until Branch Discontinu ed, Routine, Intra-op EPINEPHrine 2020- No PRN, Unive rs 1:1,000 (1 11-28 Starting ity of mg/mL) 14:22: 17:19 Thu11/28/20 [place] (ADRENALIN) 00 :28 at 09, Medi jared injection Until Wed Branc h 11/28/20 at 1219, Routine, Intra-op DUOVISC 2020- No PRN, Univers (DUOVISC 11-28 Starting ity of VISCO 14:22: 17:19 11/28/20 [place] ELASTIC) 3 00 :28 at 0922, Medic al %-4 %(0.5 Until Wed Branc h mL) 1 % 11/28/20 at (0.55 mL) 1219, intraocular Routine, injection Intra-op dexamethaso 2020- No PRN, Unive rs ne 11-28 Starting ity of (DECADRON 14:22: 17:19 11/28/20 [place] PHOSPHATE) 00 :28 at 0922, Medic al injection Until Wed Branc h 11/28/20 at 1219, Routine, Intra-op carbachoL 2020- No PRN, Univers (MIOSTAT) 11-28 Starting ity o f 0.01 % 14:22: 17:19 11/28/20 [place] intraocular 00 :28 at 0922, Medi jared injection Until Wed Branc h 11/28/20 at 1219, Routine, Intra-op balanced Yes PRN, Univers salt irrig 11-28 Starting ity o f soln comb1 14:21: 11/28/20 [place] (BSS PLUS) 00 at 0921, Medic al ophthalmic Until Branch solution Discontinu 500 mL bag ed, Routine, Intra-op balanced 2020- No PRN, Univers salt irrig 11-28 Starting ity of soln comb1 14:21: 17:19 11/28/20 [place] (BSS PLUS) 00 :28 at 0921, Medic al ophthalmic Until Wed Bran ch solution 11/28/20 at 500 mL bag 1219, Routine, Intra-op mydriatic 2020- No .5mL 0.5 mL, Univ ers #5 11-28 Left Eye, ity of ophthalmic 13:30: 13:36 ONCE, 1 [place] solution 00 :00 dose, Wed Medica l 0.5 mL 11/28/20 at Branch syringe 0830, Routine, DSU Pre-op lactated 2020- No 1000mL at 42 [facility] rs ringers IV 11-28 mL/hr, ity of infusion 13:30: 13:36 1,000 mL, [place] 1,000 mL 00 :00 IV Medical Infusion, Branch ONCE, 1 dose, 11/28/20 at 0830, Routine, DSU Pre-op mydriatic 2020- No .5mL 0.5 mL, Univ ers #5 11-28 Left Eye, ity of ophthalmic 13:30: 13:36 ONCE, 1 [place] solution 00 :00 dose, Wed Medica l 0.5 mL 11/28/20 at Branch syringe 0830, Routine, DSU Pre-op lactated 2020- No [facility] 8-04 08-04 mL/hr, ity of infusion 13:30: 13:36 1,000 mL, [place] 1,000 mL 00 :00 IV Medical Infusion, Branch ONCE, 1 dose, Thu11/28/20 at 0830, Routine, DSU Pre-op water for Yes PRN, Univers irrigation 11-14 Starting ity o f irrigation 13:07: Thu [place] solution 00 11/14/20 at Medic al 0807, Branch Until Discontinu ed, Routine, Intra-op water for 2020- No PRN, Univers irrigation 11-14 Starting ity of irrigation 13:07: 15:58 Wed [place] solution 00 :51 11/14/20 at Medic al 0807, Branch Until Thu11/14/20 at 1058, Routine, Intra-op neomycin-po Yes PRN, [facility] s lymyxin-dex 11-14 Starting ity of amethasone 13:06: Thu [place] (MAXITROL) 11/14/20 at [facility] ical 3.5 0806, Branch mg/g-10,000 Until unit/g-0.1 Discontinu % ed, ophthalmic Routine, ointment Intra-op DUOVISC Yes PRN, Univers (DUOVISC 11-14 Starting ity of VISCO 13:06: Thu [place] ELASTIC) 3 11/14/20 at [facility] ical %-4 %(0.5 0806, Branch mL) 1 % Until (0.55 mL) Discontinu intraocular ed, injection Routine, Intra-op dexamethaso Yes PRN, [facility] 11[facility] Starting ity of (DECADRON 13:06: Thu [place] PHOSPHATE) 11/14/20 at [facility] ical injection 08, Branch Until Discontinu ed, Routine, Intra-op carbachoL Yes PRN, Univers (MIOSTAT) 11-14 Starting ity of 0.01 % 13:06: Wed [place] intraocular 00 11/14/20 at Ia dical injection 08, Branch Until Discontinu ed, Routine, Intra-op neomycin-po 2020- No PRN, Unive rs lymyxin-dex 11-14 Starting ity of amethasone 13:06: 15:58 [facility] (MAXITROL) 00 :51 11/14/20 at [facility] ical 3.5 0806, Branch mg/g-10,000 Until Thu unit/g-0.1 11/14/20 at % 1058, ophthalmic Routine, ointment Intra-op DUOVISC 2020- No PRN, Univers (DUOVISC 11-14 Starting ity of VISCO 13:06: 15:58 [facility] ELASTIC) 3 00 :51 11/14/20 at [facility] %-4 %(0.5 0806, Branch mL) 1 % Until Thu (0.55 mL) 11/14/20 at intraocular 1058, injection Routine, Intra-op dexamethaso 2020- No PRN, Unive rs ne 11-14 Starting ity of (DECADRON 13:06: 15:58 [facility] PHOSPHATE) 00 :51 11/14/20 at [facility] ical injection 0806, Branch Until Thu11/14/20 at 1058, Routine, Intra-op carbachoL 2020- No PRN, Univers (MIOSTAT) 11-14 Starting ity o f 0.01 % 13:06: 15:58 Thu [place] intraocular 00 :51 11/14/20 at [place] dical injection 0806, Branch Until 11/14/20 at 1058, Routine, Intra-op balanced Yes PRN, Univers salt irrig 11-14 Starting ity o f soln comb1 13:05: Thu (BSS PLUS) 00 11/14/20 at [facility] ica ophthalmic 0805, Branch solution Until 500 mL bag Discontinu ed, Routine, Intra-op balanced 2020- No PRN, Univers salt irrig 11-14 Starting ity of soln comb1 13:05: 15:58 [facility] (BSS PLUS) 00 :51 11/14/20 at [facility] ica ophthalmic 0805, Branch solution Until Wed 500 mL bag 11/14/20 at 1058, Routine, Intra-op Hyaluronida Yes PRN, Univer s se, Human 11-14 Starting ity of Recomb. 13:02: Thu [place] (HYLENEX) 00 11/14/20 at Medi jared injection 0802, Branch Until Discontinu ed, Routine, Intra-op eye block Yes PRN, Univers syringe 11-14 Starting ity o f mL 13:02: Thu [place] 00 11/14/20 at Medical 0802, Branch Until Discontinu ed, Intra-op Hyaluronida 2020- No PRN, Unive rs se, Human 11-14 Starting ity o f Recomb. 13:02: 15:58 Thu [place] (HYLENEX) 00 :51 11/14/20 at Medi jared injection 0802, Branch Until Thu11/14/20 at 1058, Routine, Intra-op eye block 2020- No PRN, Univers syringe 11 11-14 Starting ity of mL 13:02: 15:58 [facility] 00 :51 11/14/20 at Medical 0802, Branch Until Thu11/14/20 at 1058, Intra-op mydriatic 2020- No .5mL 0.5 mL, Univ ers #5 11-14 Right Eye, ity of ophthalmic 12:15: 12:18 ONCE, 1 [place] solution 00 :00 dose, Thu Medica l 0.5 mL 11/14/20 at Branch syringe 0715, Routine, DSU Pre-op lactated 2020- No 1000mL at 42 Unive rs ringers IV 11-14 mL/hr, ity of infusion 12:15: 12:18 1,000 mL, [place] 1,000 mL 00 :00 IV Medical Infusion, [place] ONCE, 1 dose, 11/14/20 at 0715, Routine, DSU Pre-op mydriatic 2020- No .5mL 0.5 mL, Univ ers #5 11-14 Right Eye, ity of ophthalmic 12:15: 12:18 ONCE, 1 [place] solution 00 :00 dose, Thu Medica l 0.5 mL 11/14/20 at Branch syringe 0715, Routine, DSU Pre-op lactated 2020- No 1000mL at 42 Unive rs ringers IV 11-14 mL/hr, ity of infusion 12:15: 12:18 1,000 mL, [place] 1,000 mL 00 :00 IV Medical Infusion, Branch ONCE, 1 dose, 11/14/20 at 0715, Routine, DSU Pre-op Brilinta 2020-0 Yes PO, BID, 0 Mem oria 6-04 Refill(s) l 21:25: [place] Brilinta 2020-0 Yes PO, BID, 0 Mem oria 6-04 Refill(s) l 21:25: Pro gabapentin Yes 100 mg = 1 M emoria 100 MG Oral 2-18 cap, PO, l Capsule 18:59: QAM, # 30 Mera nn 00 cap, 3 Refill(s), Pharmacy: [facility] #[id number], 167.64, cm, 06/14/20 9:23:00 [employer], Height, 96.818, kg, 06/14/20 9:23:00 [employer], Weight gabapentin Yes 100 mg = 1 M emoria 100 MG Oral 2-18 cap, PO, l Capsule 18:59: QAM, # 30 Mera nn 00 cap, 3 Refill(s), Pharmacy: [facility] #[id number], 167.64, cm, 06/14/20 9:23:00 [employer], Height, 96.818, kg, 06/14/20 9:23:00 [employer], Weight baclofen 10 0 Yes = 1 tab, Me moria mg oral 2-18 PO, BID, # l tablet 15:35: 60 tab, 4 Kunal n 00 Refill(s), Pharmacy: [facility] #[id number], 167.64, cm, 06/14/20 9:23:00 [employer], Height, 96.818, kg, 06/14/20 9:23:00 [employer], Weight gabapentin Yes 300 mg = 1 M emoria 300 MG Oral 2-18 cap, PO, l Capsule 15:35: Bedtime, # Herm candace 00 30 cap, 3 Refill(s), Pharmacy: [facility] #[id number], 167.64, cm, 06/14/20 9:23:00 [employer], Height, 96.818, kg, 06/14/20 9:23:00 [employer], Weight baclofen 10 2020-0 Yes = 1 tab, Me moria mg oral 2-18 PO, BID, # l tablet 15:35: 60 tab, 4 Kunal n 00 Refill(s), Pharmacy: [facility] #[id number], 167.64, cm, 06/14/20 9:23:00 [employer], Height, 96.818, kg, 06/14/20 9:23:00 [employer], Weight gabapentin 0 Yes 300 mg = 1 M emoria 300 MG Oral 2-18 cap, PO, l Capsule 15:35: Bedtime, # Herm candace 00 30 cap, 3 Refill(s), Pharmacy: [facility] #[id number], 167.64, cm, 06/14/20 9:23:00 [employer], Height, 96.818, kg, 06/14/20 9:23:00 [employer], Weight DULoxetine Yes 60 mg = 1 Me moria 60 mg oral 2-18 cap, PO, l delayed 15:34: Daily, # Kunal n release 00 30 cap, 3 capsule Refill(s), Pharmacy: [facility] #[id number], 167.64, cm, 06/14/20 9:23:00 [employer], Height, 96.818, kg, 06/14/20 9:23:00 [employer], Weight DULoxetine Yes 60 mg = 1 Me moria 60 mg oral 2-18 cap, PO, l delayed 15:34: Daily, # Kunal n release 00 30 cap, 3 capsule Refill(s), Pharmacy: [facility] #[id number], 167.64, cm, 06/14/20 9:23:00 [employer], Height, 96.818, kg, 06/14/20 9:23:00 [employer], Weight isosorbide 2020-0 No 40 mg, PO, M emoria dinitrate 2-18 Daily, 0 l extended 15:33: Refill(s) Herm candace release 00 Isosorbide 2020-0 Yes PO, 0 Memori a 2-18 Refill(s) l 15:33: Pro 00 isosorbide 2020-0 No 40 mg, PO, M emoria dinitrate 2-18 Daily, 0 l extended 15:33: Refill(s) Herm candace release 00 Isosorbide 2020-0 Yes PO, 0 Memori a 2-18 Refill(s) l 15:33: [place] 00 DULoxetine 2019-0 Yes 60 mg = 1 Me moria 60 mg oral 8-21 cap, PO, l delayed 22:56: Daily, # Kunal n release 00 30 cap, 3 capsule Refill(s), [facility][id number], 167.64, cm, 10/26/19 14:53:00 CDT, Height, 92.727, kg, 10/26/19 14:53:00 CDT, Weight DULoxetine 2019-0 Yes 60 mg = 1 Me moria 60 mg oral 8-21 cap, PO, l delayed 22:56: Daily, # Kunal n release 00 30 cap, 3 capsule Refill(s), [facility][id number], 167.64, cm, 10/26/19 14:53:00 CDT, Height, 92.727, kg, 10/26/19 14:53:00 CDT, Weight DULoxetine 2019-0 No = 1 cap, Mem oria 30 mg oral 7-28 PO, Daily, l delayed 14:48: # 30 cap, Mera nn release 00 0 capsule Refill(s), [facility][id number], 167.64, cm, 10/26/19 14:53:00 CDT, Height, 92.727, kg, 10/26/19 14:53:00 CDT, Weight DULoxetine 2019-0 No = 1 cap, Mem oria 30 mg oral 7-28 PO, Daily, l delayed 14:48: # 30 cap, Mera nn release 00 0 capsule Refill(s), [facility][id number], 167.64, cm, 10/26/19 14:53:00 CDT, Height, 92.727, kg, 10/26/19 14:53:00 CDT, Weight duloxetine 2020-0 Yes 30 mg = 1 Me moria 30 MG 6-03 cap, PO, l Enteric 20:56: Daily, # Kunal n Coated 00 30 cap, 1 Capsule Refill(s), [Cymbalta] Pharmacy: [facility] #[id number] baclofen 10 2020-0 Yes 10 mg = 1 M emoria mg oral 6-03 tab, PO, l tablet 20:56: BID, # 60 Kunal n 00 tab, 2 Refill(s), Pharmacy: [facility] #[id number] duloxetine 2020-0 Yes 30 mg = 1 Me moria 30 MG 6-03 cap, PO, l Enteric 20:56: Daily, # Kunal n Coated 00 30 cap, 1 Capsule Refill(s), [Cymbalta] Pharmacy: [facility] #[id number] baclofen 10 2020-0 Yes 10 mg = 1 M emoria mg oral 6-03 tab, PO, l tablet 20:56: BID, # 60 Kunal n 00 tab, 2 Refill(s), Pharmacy: [facility] #[id number] lisinopril 2020-0 Yes 0 Memoria 40 mg oral 6-03 Refill(s) l tablet 19:59: Metformin 2020-0 No 0 Memoria hydrochlori 6-03 Refill(s) l de 500 MG 19:59: Oral Tablet 00 glimepiride 2020-0 No 0 Memori a 2 mg oral 6-03 Refill(s) l tablet 19:59: amLODIPine 2020-0 Yes 0 Memoria 10 mg oral 6-03 Refill(s) l tablet 19:59: 00 lisinopril 2020-0 Yes 0 Memoria 40 mg oral 6-03 Refill(s) l tablet 19:59: Metformin 2020-0 No 0 Memoria hydrochlori 6-03 Refill(s) l de 500 MG 19:59: Oral Tablet 00 glimepiride 2020-0 No 0 Memori a 2 mg oral 6-03 Refill(s) l tablet 19:59: [place] 00 amLODIPine 2020-0 Yes 0 Memoria 10 mg oral 6-03 Refill(s) l tablet 19:59: Pro 00 Aspirin 81 2020-0 Yes 81 mg = 1 Me moria MG Enteric 5-29 tab, PO, l Coated 14:22: Daily, # [place] Tablet 00 90 tab, 3 Refill(s), other Aspirin 81 2020-0 Yes 81 mg = 1 Me moria MG Enteric 5-29 tab, PO, l Coated 14:22: Daily, # Pro Tablet 00 90 tab, 3 Refill(s), other gabapentin 2020-0 Yes 300 mg = 1 M emoria 300 MG Oral 5-29 cap, PO, l Capsule 14:21: Bedtime, # Herm candace 00 30 cap, 3 Refill(s), Pharmacy: [facility] #[id number] gabapentin 2020-0 Yes 300 mg = 1 M emoria 300 MG Oral 5-29 cap, PO, l Capsule 14:21: Bedtime, # Herm candace 00 30 cap, 3 Refill(s), [id number] pravastatin 2020-0 Yes 20 mg = 1 M emoria 20 mg oral 5-28 tab, PO, l tablet 14:59: Bedtime, # Mera nn 00 30 tab, 0 Refill(s) pravastatin 2020-0 Yes 20 mg = 1 [...] emoria 5-28 Daily, 0 l 14:50: Refill(s) Lisinopril 2020-0 Yes 40 mg, PO, M emoria 5-28 Daily, 0 l 14:50: Refill(s) Amlodipine 2020-0 Yes 10 mg, PO, M emoria 5-28 Daily, 0 l 14:50: Refill(s) Metformin 2020-0 Yes 500 mg, Memor ia 5-28 PO, BID, 0 l 14:50: Refill(s) glimepiride 2020-0 Yes 2 mg, PO, M emoria 5-28 Daily, 0 l 14:50: Refill(s) [place] 00 benzonatate 2020-0 2020- No [id number] 100mg Take 1 Univers (TESSALON 08-01 capsule by itJohn) 100 00:00: 04:59 mouth 3 [place] capsule 00 :00 (three) Medica l times Branch daily for 14 days. benzonatate 2020-0 2020- No [id number] 100mg Take 1 Univers (TESSALON 08-01 capsule by itmakayla CHARLI) 100 00:00: 04:59 mouth 3 [place] capsule 00 :00 (three) Medica l times Branch daily for 14 days. benzonatate 2020-2019- No [id number] 100mg Take 1 Univers (TESSALON 08-01 capsule by itmakayla CHARLI) 100 00:00: 04:59 mouth 3 [place] mg capsule 00 :00 (three) Medica l times Branch daily for 14 days. maalox:diph 2019- No [id number] 10mL Take 10 mL Univers enhydrAMINE 08-01 by mouth ity of :lidocaine 00:00: 04:59 as needed [place] 2 % viscous 00 :00 for Oral Medi jared 1:1:1 mucositis Branch for up to 5 days. azithromyci No [id number] 250mg Take 1 Univers n 08-01 tablet by ity of (ZITHROMAX 00:00: 04:59 mouth [place] Z-DOMINIK) 250 00 :00 daily for Medi jared mg tablet 5 days. Branch Take 500 mg day 1, then 250 mg days 2 to 5. maalox:diph 2019- No [id number] 10mL Take 10 mL Univers enhydrAMINE 08-01 by mouth ity of :lidocaine 00:00: 04:59 as needed [place] 2 % viscous 00 :00 for Oral Medi jared 1:1:1 mucositis Branch for up to 5 days. azithromyci 2020-2019- No [id number] 250mg Take 1 Univers n 08-01 tablet by ity of (ZITHROMAX 00:00: 04:59 mouth [place] Z-DOMINIK) 250 00 :00 daily for Medi jared mg tablet 5 days. Branch Take 500 mg day 1, then 250 mg days 2 to 5. maalox:diph 2020-0 2020- No [id number] 10mL Take 10 mL Univers enhydrAMINE 08-01 by mouth ity of :lidocaine 00:00: 04:59 as needed [place] 2 % viscous 00 :00 for Oral Medi jared 1:1:1 mucositis Branch for up to 5 days. azithromyci 2020-0 2020- No [id number] 250mg Take 1 Univers n 08-01 tablet by ity of (ZITHROMAX 00:00: 04:59 mouth [place] Z-DOMINIK) 250 00 :00 daily for Medi jared mg tablet 5 days. Branch Take 500 mg day 1, then 250 mg days 2 to 5. amLODIPine 2020-0 Yes TK 1 T PO Un cookie 10 mg 3-23 QAM. ity of tablet 00:00: [address] amLODIPine 2020-0 Yes TK 1 T PO Un cookie 10 mg 3-23 QAM. ity of tablet 00:00: [place] [facility] amLODIPine 2020-0 Yes TK 1 T PO Un cookie 10 mg 3-23 QAM. ity of tablet 00:00: [address] amLODIPine 2020-0 Yes TK 1 T PO Un cookie 10 mg 3-23 QAM. ity of tablet 00:00: [address] amLODIPine 2020-0 Yes TK 1 T PO Un cookie 10 mg 3-23 QAM. ity of tablet 00:00: [place] [facility] amLODIPine 2020-0 Yes TK 1 T PO Un cookie 10 mg 3-23 QAM. ity of tablet 00:00: [address] amLODIPine 2020-0 Yes TK 1 T PO Un cookie 10 mg 3-23 QAM. ity of tablet 00:00: [address] amLODIPine 2020-0 Yes TK 1 T PO Un cookie 10 mg 3-23 QAM. ity of tablet 00:00: [address] amLODIPine 2020-0 Yes TK 1 T PO Un cookie 10 mg 3-23 QAM. ity of tablet 00:00: [address] amLODIPine 2020-0 Yes TK 1 T PO Un cookie 10 mg 3-23 QAM. ity of tablet 00:00: [place] [facility] amLODIPine 2020-0 Yes TK 1 T PO Un cookie 10 mg 3-23 QAM. ity of tablet 00:00: [place] [facility] amLODIPine 2020-0 Yes TK 1 T PO Un cookie 10 mg 3-23 QAM. ity of tablet 00:00: [place] [facility] amLODIPine 2020-0 Yes TK 1 T PO Un cookie 10 mg 3-23 QAM. ity of tablet 00:00: [place] [facility] amLODIPine 2020-0 Yes TK 1 T PO Un cookie 10 mg 3-23 QAM. ity of tablet 00:00: [place] [address] [facility] Branch amLODIPine 2020-0 Yes TK 1 T PO Un cookie 10 mg 3-23 QAM. ity of tablet 00:00: [place] [address] [facility] Branch amLODIPine 2020-0 Yes TK 1 T PO Un cookie 10 mg 3-23 QAM. ity of tablet 00:00: [place] [address] [facility] Branch lisinopril 2020-0 Yes TK 1 T PO Un cookie 40 mg 3-09 QAM ity of tablet 00:00: [place] [address] [facility] Branch pravastatin 2020-0 Yes TK 1 T PO U nivers 20 mg 3-09 QHS ity of tablet 00:00: [place] [address] [facility] Branch lisinopril 2020-0 Yes TK 1 T PO Un cookie 40 mg 3-09 QAM ity of tablet 00:00: [place] [address] [facility] Branch pravastatin 2020-0 Yes TK 1 T PO U nivers 20 mg 3-09 QHS ity of tablet 00:00: [place] [address] [facility] lisinopril 2020-0 Yes TK 1 T PO Un cookie 40 mg 3-09 QAM ity of tablet 00:00: [place] [address] [facility] pravastatin 2020-0 Yes TK 1 T PO U nivers 20 mg 3-09 QHS ity of tablet 00:00: [place] [address] [facility] lisinopril 2020-0 Yes TK 1 T PO Un cookie 40 mg 3-09 QAM ity of tablet 00:00: [place] [address] [facility] pravastatin 2020-0 Yes TK 1 T PO U nivers 20 mg 3-09 QHS ity of tablet 00:00: [place] [address] [facility] lisinopril 2020-0 Yes TK 1 T PO Un cookie 40 mg 3-09 QAM ity of tablet 00:00: [place] 00 [facility] pravastatin 2020-0 Yes TK 1 T PO U nivers 20 mg 3-09 QHS ity of tablet 00:00: [place] 00 [facility] lisinopril 2020-0 Yes TK 1 T PO Un cookie 40 mg 3-09 QAM ity of tablet 00:00: [place] 00 [facility] pravastatin 2020-0 Yes TK 1 T PO U nivers 20 mg 3-09 QHS ity of tablet 00:00: [place] 00 [facility] lisinopril 2020-0 Yes TK 1 T PO Un cookie 40 mg 3-09 QAM ity of tablet 00:00: [place] 00 [facility] pravastatin 2020-0 Yes TK 1 T PO U nivers 20 mg 3-09 QHS ity of tablet 00:00: [place] [address] [facility] lisinopril 2020-0 Yes TK 1 T PO Un cookie 40 mg 3-09 QAM ity of tablet 00:00: [place] [address] [facility] pravastatin 2020-0 Yes TK 1 T PO U nivers 20 mg 3-09 QHS ity of tablet 00:00: [place] [address] [facility] lisinopril 2020-0 Yes TK 1 T PO Un cookie 40 mg 3-09 QAM ity of tablet 00:00: [place] [address] [facility] pravastatin 2020-0 Yes TK 1 T PO U nivers 20 mg 3-09 QHS ity of tablet 00:00: [place] [address] [facility] Branch lisinopril 2020-0 Yes TK 1 T PO Un cookie 40 mg 3-09 QAM ity of tablet 00:00: [place] [address] [facility] Branch pravastatin 2020-0 Yes TK 1 T PO U nivers 20 mg 3-09 QHS ity of tablet 00:00: [place] [address] [facility] Branch lisinopril 2020-0 Yes TK 1 T PO Un cookie 40 mg 3-09 QAM ity of tablet 00:00: [place] [address] [facility] Branch pravastatin 2020-0 Yes TK 1 T PO U nivers 20 mg 3-09 QHS ity of tablet 00:00: [place] [address] [facility] lisinopril 2020-0 Yes TK 1 T PO Un cookie 40 mg 3-09 QAM ity of tablet 00:00: [place] [address] [facility] pravastatin 2020-0 Yes TK 1 T PO U nivers 20 mg 3-09 QHS ity of tablet 00:00: [place] [address] [facility] Branch lisinopril 2020-0 Yes TK 1 T PO Un cookie 40 mg 3-09 QAM ity of tablet 00:00: [place] [address] [facility] Branch pravastatin 2020-0 Yes TK 1 T PO U nivers 20 mg 3-09 QHS ity of tablet 00:00: [place] [facility] lisinopril 2020-0 Yes TK 1 T PO Un cookie 40 mg 3-09 QAM ity of tablet 00:00: [place] [address] [facility] pravastatin 2020-0 Yes TK 1 T PO U nivers 20 mg 3-09 QHS ity of tablet 00:00: [place] [address] [facility] Branch lisinopril 2020-0 Yes TK 1 T PO Un cookie 40 mg 3-09 QAM ity of tablet 00:00: [address] Branch pravastatin 2020-0 Yes TK 1 T PO U nivers 20 mg 3-09 QHS ity of tablet 00:00: [place] [address] [facility] lisinopril 2020-0 Yes TK 1 T PO Un cookie 40 mg 3-09 QAM ity of tablet 00:00: [place] [address] [facility] pravastatin 2020-0 Yes TK 1 T PO U nivers 20 mg 3-09 QHS ity of tablet 00:00: [place] [address] [facility] Branch metFORMIN 2020-0 Yes TK 2 TS PO Un cookie 500 mg 1-17 BID ity of tablet 00:00: [address] Branch glimepiride 2020-0 Yes TK 1 T PO U nivers 2 mg tablet 1-17 QPM ity of 00:00: [place] [address] [facility] Branch metFORMIN 2020-0 Yes TK 2 TS PO Un cookie 500 mg 1-17 BID ity of tablet 00:00: [place] [address] [facility] Branch glimepiride 2020-0 Yes TK 1 T PO U nivers 2 mg tablet 1-17 QPM ity of 00:00: [place] [address] [facility] metFORMIN 2020-0 Yes TK 2 TS PO Un cookie 500 mg 1-17 BID ity of tablet 00:00: [place] [address] [facility] Branch glimepiride 2020-0 Yes TK 1 T PO U nivers 2 mg tablet 1-17 QPM ity of 00:00: [place] [address] [facility] Branch metFORMIN 2020-0 Yes TK 2 TS PO Un cookie 500 mg 1-17 BID ity of tablet 00:00: [place] [address] [facility] Branch glimepiride 2020-0 Yes TK 1 T PO U nivers 2 mg tablet 1-17 QPM ity of 00:00: [place] [facility] metFORMIN 2020-0 Yes TK 2 TS PO Un cookie 500 mg 1-17 BID ity of tablet 00:00: [place] [facility] glimepiride 2020-0 Yes TK 1 T PO U nivers 2 mg tablet 1-17 QPM ity of 00:00: [place] [facility] metFORMIN 2020-0 Yes TK 2 TS PO Un cookie 500 mg 1-17 BID ity of tablet 00:00: [place] [facility] glimepiride 2020-0 Yes TK 1 T PO U nivers 2 mg tablet 1-17 QPM ity of 00:00: [place] [address] [facility] Branch metFORMIN 2020-0 Yes TK 2 TS PO Un cookie 500 mg 1-17 BID ity of tablet 00:00: [address] glimepiride 2020-0 Yes TK 1 T PO U nivers 2 mg tablet 1-17 QPM ity of 00:00: [address] metFORMIN 2020-0 Yes TK 2 TS PO Un cookie 500 mg 1-17 BID ity of tablet 00:00: [address] Branch glimepiride 2020-0 Yes TK 1 T PO U nivers 2 mg tablet 1-17 QPM ity of 00:00: [address] metFORMIN 2020-0 Yes TK 2 TS PO Un cookie 500 mg 1-17 BID ity of tablet 00:00: [address] Branch glimepiride 2020-0 Yes TK 1 T PO U nivers 2 mg tablet 1-17 QPM ity of 00:00: [place] [address] [facility] [place] metFORMIN 2020-0 Yes TK 2 TS PO Un cookie 500 mg 1-17 BID ity of tablet 00:00: [place] [facility] glimepiride 2020-0 Yes TK 1 T PO U nivers 2 mg tablet 1-17 QPM ity of 00:00: [place] [address] [facility] [place] metFORMIN 2020-0 Yes TK 2 TS PO Un cookie 500 mg 1-17 BID ity of tablet 00:00: [address] Branch glimepiride 2020-0 Yes TK 1 T PO U nivers 2 mg tablet 1-17 QPM ity of 00:00: [place] [address] [facility] [place] metFORMIN 2020-0 Yes TK 2 TS PO Un cookie 500 mg 1-17 BID ity of tablet 00:00: [address] glimepiride 2020-0 Yes TK 1 T PO U nivers 2 mg tablet 1-17 QPM ity of 00:00: [address] metFORMIN 2020-0 Yes TK 2 TS PO Un cookie 500 mg 1-17 BID ity of tablet 00:00: [address] glimepiride 2020-0 Yes TK 1 T PO U nivers 2 mg tablet 1-17 QPM ity of 00:00: [address] metFORMIN 2020-0 Yes TK 2 TS PO Un cookie 500 mg 1-17 BID ity of tablet 00:00: [address] glimepiride 2020-0 Yes TK 1 T PO U nivers 2 mg tablet 1-17 QPM ity of 00:00: [address] metFORMIN 2020-0 Yes TK 2 TS PO Un cookie 500 mg 1-17 BID ity of tablet 00:00: [address] glimepiride 2020-0 Yes TK 1 T PO U nivers 2 mg tablet 1-17 QPM ity of 00:00: [address] metFORMIN 2020-0 Yes TK 2 TS Univ ers 500 mg 1-17 PO BID ity of tablet 00:00: [address] glimepiride 2020-0 Yes TK 1 T PO U nivers 2 mg tablet 1-17 QPM ity of 00:00: [address] Immunizations Ordered Filled Immunization Date Status Comments [facility] e Immunization Name Name SARS-COV-2 COVID-19 2020-09-03 Completed Unive rsity of ANGELO/J&J VACCINE 00:00:00 [facility] SARS-COV-2 COVID-19 2020-09-03 Completed Unive rsity of ANGELO/J&J VACCINE 00:00:00 [facility] SARS-COV-2 COVID-19 2020-09-03 Completed Unive rsity of ANGELO/J&J VACCINE 00:00:00 [facility] SARS-COV-2 COVID-19 2020-09-03 Completed Unive rsity of ANGELO/J&J VACCINE 00:00:00 [facility] SARS-COV-2 COVID-19 2020-09-03 Completed Unive rsity of ANGELO/J&J VACCINE 00:00:00 [facility] SARS-COV-2 COVID-19 2020-09-03 Completed Unive rsity of ANGELO/J&J VACCINE 00:00:00 [facility] SARS-COV-2 COVID-19 2020-09-03 Completed Unive rsity of ANGELO/J&J VACCINE 00:00:00 [facility] SARS-COV-2 COVID-19 2020-09-03 Completed Unive rsity of ANGELO/J&J VACCINE 00:00:00 [facility] SARS-COV-2 COVID-19 2020-09-03 Completed Unive rsity of ANGELO/J&J VACCINE 00:00:00 [facility] SARS-COV-2 COVID-19 2020-09-03 Completed Unive rsity of ANGELO/J&J VACCINE 00:00:00 [facility] SARS-COV-2 COVID-19 2020-09-03 Completed Unive rsity of ANGELO/J&J VACCINE 00:00:00 [facility] Vital Signs Vital Name Observation Time Observation Value Comments Source Systolic blood 2020-12-11 21:08:00 105 mm[Hg] Univer sity of pressure [facility] Diastolic blood 2020-12-11 21:08:00 45 mm[Hg] Unive rsity of pressure [facility] Heart rate 2020-12-11 21:08:00 79 /min [facility] Body temperature 2020-12-11 21:08:00 38.83 [facility] rate 2020-12-11 21:08:00 22 /min [facility] Oxygen saturation in 2020-12-11 21:08:00 98 /min [facility] Arterial blood by [facility] Pulse oximetry [place] Body height 2020-12-11 18:41:00 167.6 cm [facility] Body weight 2020-12-11 18:41:00 97.07 kg [facility] BMI 2020-12-11 18:41:00 34.54 kg/m2 [facility] Systolic blood 2020-11-28 15:00:00 128 mm[Hg] Univer sity of pressure [facility] Diastolic blood 2020-11-28 15:00:00 67 mm[Hg] Unive rsity of pressure [facility] Heart rate 2020-11-28 15:00:00 59 /min [facility] [place] [facility] Respiratory rate 2020-11-28 15:00:00 13 /min [facility] ers[facility] [place] [facility] Oxygen saturation in 2020-11-28 15:00:00 100 /min University of Arterial blood by [facility] [place] [facility] jared Pulse oximetry Branch Body temperature 2020-11-28 14:50:00 36.33 Krystal [facility] ersity [facility] [place] [facility] Body weight 2020-11-23 17:49:00 102.1 kg [facility] [place] [facility] BMI 2020-11-23 17:49:00 36.35 kg/m2 [facility] [place] [facility] Systolic blood 2020-11-28 15:00:00 128 mm[Hg] Univer sity of pressure [place] [facility] Diastolic blood 2020-11-28 15:00:00 67 mm[Hg] Unive rsity of pressure [place] [facility] Heart rate 2020-11-28 15:00:00 59 /min [facility] [place] [facility] Respiratory rate 2020-11-28 15:00:00 13 /min [facility] ers[facility] [place] [facility] Oxygen saturation in 2020-11-28 15:00:00 100 /min University of Arterial blood by [facility] Pulse oximetry Branch Body temperature 2020-11-28 14:50:00 36.33 Krystal [facility] [place] [facility] Body weight 2020-11-23 17:49:00 102.1 kg [facility] [place] [facility] BMI 2020-11-23 17:49:00 36.35 kg/m2 [facility] [place] [facility] Systolic blood 2020-11-28 15:00:00 128 mm[Hg] Univer sity of pressure [place] [facility] Diastolic blood 2020-11-28 15:00:00 67 mm[Hg] Unive rsity of pressure [place] [facility] Heart rate 2020-11-28 15:00:00 59 /min [facility] [place] [facility] Respiratory rate 2020-11-28 15:00:00 13 /min Univ ersity [facility] [place] [facility] Oxygen saturation in 2020-11-28 15:00:00 100 /min University of Arterial blood by [facility] Pulse oximetry Branch Body temperature 2020-11-28 14:50:00 36.33 Krystal [facility] [place] [facility] Body weight 2020-11-23 17:49:00 102.1 kg [facility] [place] [facility] BMI 2020-11-23 17:49:00 36.35 kg/m2 [facility] [place] [facility] Systolic blood 2020-11-28 15:00:00 128 mm[Hg] Univer sity of pressure [place] [facility] Diastolic blood 2020-11-28 15:00:00 67 mm[Hg] Unive rsity of pressure [place] [facility] Heart rate 2020-11-28 15:00:00 59 /min [facility] [place] [facility] Respiratory rate 2020-11-28 15:00:00 13 /min [facility] ers[facility] [place] [facility] Oxygen saturation in 2020-11-28 15:00:00 100 /min University of Arterial blood by [facility] jared Pulse oximetry Branch Body temperature 2020-11-28 14:50:00 36.33 Krystal [facility] [place] [facility] Body weight 2020-11-23 17:49:00 102.1 kg [facility] [place] [facility] BMI 2020-11-23 17:49:00 36.35 kg/m2 [facility] [place] [facility] Systolic blood 2020-11-14 13:40:00 140 mm[Hg] Univer sity of pressure [place] [facility] Diastolic blood 2020-11-14 13:40:00 77 mm[Hg] Unive rsity of pressure [place] [facility] Heart rate 2020-11-14 13:40:00 73 /min [facility] [place] [facility] Respiratory rate 2020-11-14 13:40:00 12 /min Univ ersity [facility] [place] [facility] Oxygen saturation in 2020-11-14 13:40:00 96 /min University of Arterial blood by [place] [facility]ared Pulse oximetry Branch Body temperature 2020-11-14 12:04:00 36.67 Krystal [facility] [place] [facility] Body height 2020-11-09 14:50:00 167.6 cm [facility] [place] [facility] Body weight 2020-11-09 14:50:00 102.1 kg [facility] [place] [facility] BMI 2020-11-09 14:50:00 36.35 kg/m2 [facility] [place] [facility] Systolic blood 2020-11-14 13:40:00 140 mm[Hg] Univer sity of pressure [place] [facility] Diastolic blood 2020-11-14 13:40:00 77 mm[Hg] Unive rsity of pressure [place] [facility] Heart rate 2020-11-14 13:40:00 73 /min [facility] [place] [facility] Respiratory rate 2020-11-14 13:40:00 12 /min [facility] [place] [facility] Oxygen saturation in 2020-11-14 13:40:00 96 /min University of Arterial blood by [facility] [place] [facility] jared Pulse oximetry Branch Body temperature 2020-11-14 12:04:00 36.67 Krystal [facility] [place] [facility] Body height 2020-11-09 14:50:00 167.6 cm [facility] [place] [facility] Body weight 2020-11-09 14:50:00 102.1 kg [facility] [place] [facility] BMI 2020-11-09 14:50:00 36.35 kg/m2 [facility] [place] [facility] Systolic blood 2020-11-14 13:40:00 140 mm[Hg] Univer sity of pressure [place] [facility] Diastolic blood 2020-11-14 13:40:00 77 mm[Hg] Unive rsity of pressure [place] [facility] Heart rate 2020-11-14 13:40:00 73 /min [facility] [place] [facility] Respiratory rate 2020-11-14 13:40:00 12 /min [facility] [place] [facility] Oxygen saturation in 2020-11-14 13:40:00 96 /min University of Arterial blood by [facility] Pulse oximetry Branch Body temperature 2020-11-14 12:04:00 36.67 Krystal [facility] [place] [facility] Body height 2020-11-09 14:50:00 167.6 cm [facility] [place] [facility] Body weight 2020-11-09 14:50:00 102.1 kg [facility] [place] [facility] BMI 2020-11-09 14:50:00 36.35 kg/m2 [facility] [place] [facility] Systolic blood 2020-11-14 13:40:00 140 mm[Hg] Univer sity of pressure [place] [facility] Diastolic blood 2020-11-14 13:40:00 77 mm[Hg] Unive rsity of pressure [place] [facility] Heart rate 2020-11-14 13:40:00 73 /min [facility] [place] [facility] Respiratory rate 2020-11-14 13:40:00 12 /min Univ ersity [facility] [place] [facility] Oxygen saturation in 2020-11-14 13:40:00 96 /min University of Arterial blood by [facility] Pulse oximetry Branch Body temperature 2020-11-14 12:04:00 36.67 Krystal [facility] [place] [facility] Body height 2020-11-09 14:50:00 167.6 cm [facility] [place] [facility] Body weight 2020-11-09 14:50:00 102.1 kg [facility] [place] [facility] BMI 2020-11-09 14:50:00 36.35 kg/m2 [facility] [place] [facility] Systolic blood 2019-08-02 13:30:00 127 mm[Hg] Univer sity of pressure [place] [facility] Diastolic blood 2019-08-02 13:30:00 78 mm[Hg] Unive rsity of pressure [place] [facility] Heart rate 2019-08-02 13:28:00 76 /min [facility] [place] [facility] Body temperature 2019-08-02 13:28:00 36.5 Krystal [facility] [place] [facility] Respiratory rate 2019-08-02 13:28:00 19 /min [facility] [place] [facility] Body height 2019-08-02 13:28:00 167.6 cm [facility] [place] [facility] Body weight 2019-08-02 13:28:00 102.059 kg [facility] [place] [facility] BMI 2019-08-02 13:28:00 36.32 kg/m2 [facility] [place] [facility] Oxygen saturation in 2019-08-02 13:28:00 98 /min University of Arterial blood by [facility] Pulse oximetry Branch Systolic blood 2019-08-02 13:30:00 127 mm[Hg] Univer sity of pressure [place] [facility] Diastolic blood 2019-08-02 13:30:00 78 mm[Hg] Unive rsity of pressure [place] [facility] Heart rate 2019-08-02 13:28:00 76 /min [facility] [place] [facility] Body temperature 2019-08-02 13:28:00 36.5 Krystal [facility] [place] [facility] Respiratory rate 2019-08-02 13:28:00 19 /min [facility] [place] [facility] Body height 2019-08-02 13:28:00 167.6 cm [facility] Body weight 2019-08-02 13:28:00 102.059 kg [facility] BMI 2019-08-02 13:28:00 36.32 kg/m2 [facility] Oxygen saturation in 2019-08-02 13:28:00 98 /min University Arterial blood by [facility] Pulse oximetry Branch Systolic (mm Hg) 2021-11-07 20:21:00 Trino rial [place] Diastolic (mm Hg) 2021-11-07 20:21:00 Mem orial [place] Heart Rate 2021-11-07 20:21:00 [facility] [place] Respitory Rate 2021-11-07 20:21:00 Memori al [place] Height 2021-11-07 20:21:00 170.18 cm [facility] Weight 2021-11-07 20:21:00 [facility] [place] BMI Calculated 2021-11-07 20:21:00 Memori al Pro Height 2021-09-16 19:27:00 170.18 cm [facility] Weight 2021-09-16 19:27:00 [facility] BMI Calculated 2021-09-16 19:27:00 Memori al Pro Systolic (mm Hg) 2021-08-20 20:12:00 Trino rial Pro Diastolic (mm Hg) 2021-08-20 20:12:00 Mem orial [place] Heart Rate 2021-08-20 20:12:00 [facility] [place] Respitory Rate 2021-08-20 20:12:00 Memori al [place] Height 2021-08-20 20:12:00 167.64 cm [facility] [place] Weight 2021-08-20 20:12:00 [facility] BMI Calculated 2021-08-20 20:12:00 Memori al [place] Systolic (mm Hg) 2021-06-25 19:14:00 Trino rial Pro Diastolic (mm Hg) 2021-06-25 19:14:00 Mem orial Pro Heart Rate 2021-06-25 19:14:00 [facility] [place] Respitory Rate 2021-06-25 19:14:00 Memori al Pro Height 2021-06-25 19:14:00 162.56 cm [facility] [place] Weight 2021-06-25 19:14:00 [facility] [place] BMI Calculated 2021-06-25 19:14:00 Memori al [place] Systolic (mm Hg) 2020-11-16 20:17:00 Trino rial Pro Diastolic (mm Hg) 2020-11-16 20:17:00 Mem orial Pro Heart Rate 2020-11-16 20:17:00 [facility] [place] Respitory Rate 2020-11-16 20:17:00 Memori al Pro Height 2020-11-16 20:17:00 167.64 cm [facility] Weight 2020-11-16 20:17:00 [facility] BMI Calculated 2020-11-16 20:17:00 Memori al [place] Systolic (mm Hg) 2020-09-28 20:50:00 Trino rial Pro Diastolic (mm Hg) 2020-09-28 20:50:00 Mem orial [place] Heart Rate 2020-09-28 20:50:00 [facility] [place] Respitory Rate 2020-09-28 20:50:00 Memori al Pro Height 2020-09-28 20:50:00 167.64 cm [facility] [place] Weight 2020-09-28 20:50:00 [facility] [place] BMI Calculated 2020-09-28 20:50:00 Memori al [place] Systolic (mm Hg) 2020-06-14 15:23:00 Trino rial [place] Diastolic (mm Hg) 2020-06-14 15:23:00 Mem orial Pro Heart Rate 2020-06-14 15:23:00 [facility] Respitory Rate 2020-06-14 15:23:00 Memori al Pro Height 2020-06-14 15:23:00 167.64 cm [facility] [place] Weight 2020-06-14 15:23:00 [facility] [place] BMI Calculated 2020-06-14 15:23:00 Memori al [place] Systolic (mm Hg) 2019-10-26 19:53:00 Trino rial [place] Diastolic (mm Hg) 2019-10-26 19:53:00 Mem orial Pro Heart Rate 2019-10-26 19:53:00 [facility] Respitory Rate 2019-10-26 19:53:00 [facility] Height 2019-10-26 19:53:00 167.64 cm [facility] Weight 2019-10-26 19:53:00 [facility] BMI Calculated 2019-10-26 19:53:00 [facility] Systolic (mm Hg) 2019-09-28 20:25:00 [facility] Diastolic (mm Hg) 2019-09-28 20:25:00 [facility] [place] Heart Rate 2019-09-28 20:25:00 [facility] Respitory Rate 2019-09-28 20:25:00 [facility] [place] Height 2019-09-28 20:25:00 167.64 cm [facility] Weight 2019-09-28 20:25:00 [facility] BMI Calculated 2019-09-28 20:25:00 [facility] [place] Systolic (mm Hg) 2019-09-23 13:29:00 [facility] [place] Diastolic (mm Hg) 2019-09-23 13:29:00 Mem o[facility] Pro Heart Rate 2019-09-23 13:29:00 [facility] Respitory Rate 2019-09-23 13:29:00 [facility] Height 2019-09-23 13:29:00 167.64 cm [facility] Weight 2019-09-23 13:29:00 [facility] BMI Calculated 2019-09-23 13:29:00 [facility] Temperature Oral (F) 2019-09-23 13:29:00 97.9 F [facility] Height 2019-09-22 13:28:00 167.64 cm [facility] Weight 2019-09-22 13:28:00 [facility] BMI Calculated 2019-09-22 13:28:00 [facility] Systolic (mm Hg) 2019-09-22 13:28:00 Trino [facility] Pro Diastolic (mm Hg) 2019-09-22 13:28:00 [facility] [place] Heart Rate 2019-09-22 13:28:00 [facility] Respitory Rate 2019-09-22 13:28:00 [facility] [place] Temperature Oral (F) 2019-09-22 13:28:00 98.7 F [facility] Procedures Procedure Date / Time Performing Source Performed Clinician Injection of corpora 2021-10-14 [facility] rmann cavernosa with pharmacologic 14:25:00 agent(s) (eg, papaverine, phentolamine) Cystourethroscopy (separate 2021-10-01 [facility] procedure) 22:05:00 CONSENT/REFUSAL FOR DIAGNOSIS 2020-12-11 Doctor Unassigned, [facility] AND TREATMENT 05:01:00 [facility] PHACOEMULSIFICATION OF 2020-11-28 Tre Louise [facility] CATARACT WITH INTRAOCULAR 14:15:00 Medica l Branch LENS IMPLANT POCT GLUCOSE(AGE >30DAYS) 2020-11-28 Alka Heller [facility] 13:30:00 Medical Branch POCT GLUCOSE(AGE >30DAYS) 2020-11-28 Alka Heller [facility] 13:30:00 Medical Branch COVID-19 (ID NOW RAPID 2020-11-28 Tre Louise [facility] TESTING) 12:51:00 Medical Branch CONSENT/REFUSAL FOR DIAGNOSIS 2020-11-26 Doctor Unassmehran, [facility] AND TREATMENT 20:44:56 [facility] CONSENT/REFUSAL FOR DIAGNOSIS 2020-11-26 Doctor Unassigned, [facility] AND TREATMENT 20:44:56 [facility] ASSIGNMENT OF BENEFITS 2020-11-26 Doctor Unaedwige, [facility] 20:44:20 [facility] ASSIGNMENT OF BENEFITS 2020-11-26 Doctor Lyle, [facility] 20:44:20 [facility] PHACOEMULSIFICATION OF 2020-11-14 Tre Louise [facility] CATARACT WITH INTRAOCULAR 12:51:00 Medica l [place] LENS IMPLANT POCT GLUCOSE(AGE >30DAYS) 2020-11-[address] [facility] 12:16:00 Medical Branch POCT GLUCOSE(AGE >30DAYS) 2020-11-[address] [facility] 12:16:00 Medical Branch VACCINATIONS - CONSENTS, 2020-11-14 Doctor Shessmehran, [facility] ELIGIBILITY, HISTORY 05:01:00 [place] [facility] CBC WITH DIFF 2020-11-05 Tre Louise [facility] 16:24:00 Medical Branch ASSIGNMENT OF BENEFITS 2020-11-05 Doctor Unassmehran, [facility] 16:14:55 [facility] POCT GRP A STREP (MOLECULAR) 2019-08-02 Silvia Long [facility] 13:46:00 [facility] Stent placement [facility] Hand arthroplasty [facility] [place] [facility] Start End Encounter Admission Attending Care Care Encounter Source Date/Time Date/Time Type Type Clinicians Facility Department ID 2021-05-22 Outpatient Kattegummul [facility] [id number] Common 14:31:19 a, [place] [facility] 2021-05-22 Outpatient Kattegummul [facility] [id number] Common 14:30:11 a, [facility] 2021-02-25 Outpatient Zahraa LOUISE [facility] OPH [id number] Univers 12:04:47 [facility] 2021-02-25 Outpatient Zahraa LOUISE [facility] OPH [id number] Univers 08:31:28 [facility] 2022-03-11 2022-03-11 Outpatient ALYSONIE BRAYDON [id number] Memoria 15:30:00 15:30:00 25 rafaela Mast 2021-11-07 2021-11-08 Outpatient nullFlavo MNA [id number] Memoria 20:30:00 04:59:59 r Neurology 24 l Ayush Mast 2021-11-07 2021-11-07 Outpatient YVES Rojas [id number] 15:30:00 23:59:59 Brett 24 Thien 2021-11-07 2021-11-07 Outpatient BRAYDON BRYSON [id number] Memoria 15:30:00 15:30:00 24 rafaela Mast 2021-10-14 2021-10-15 [place] [id number] Memoria 14:00:00 04:59:59 r Urology 23 l Willie Tesfaye nn Time Share 2021-10-14 2021-10-[address] [facility] [id number] 09:00:00 23:59:59 Carla L 23 2021-10-14 2021-10-14 Outpatient ALYSONIE ALYSONIE [id number] Memoria 09:00:00 09:00:00 23 rafaela Mast 2021-10-01 2021-10-[address] [facility] [id number] Memoria 20:30:00 04:59:59 r Urology 22 l Willie Tesfaye nn Time Share 2021-10-01 2021-10-01 Outpatient Abhijeet [facility] [id number] 15:30:00 23:59:59 Carla L 22 2021-10-01 2021-10-[address] [facility] [id number] Memoria 20:30:00 20:30:00 Pre-Reg r Urology 21 l Willie Tesfaye nn Time Share 2021-10-01 2021-10-[address] [facility] [id number] Memoria 15:30:00 15:30:00 22 rafaela Pro 2021-10-01 2021-10-01 Outpatient RAYRAY RAYRAY [id number] Memoria 15:30:00 15:30:00 21 rafaela Pro 2021-10-01 2021-10-01 Outpatient Abhijeet [facility] [id number] 15:30:00 15:30:00 Carla L 21 2021-09-26 2021-09-26 Ambulatory nullFlavo VTA [id number] Memoria 13:15:00 13:15:00 Pre-Reg r Neurology 19 l Ayush Mast 2021-09-26 2021-09-26 Outpatient RAYRAY RAYRAY [id number] Memoria 08:15:00 08:15:00 19 rafaela Mast 2021-09-26 2021-09-26 [id number] 08:15:00 08:15:00 Brett July Neumann 2021-09-16 2021-09-17 Outpatient nullFlavo [facility] [id number] Memoria 19:40:00 04:59:59 r Specialty 20 [facility] 2021-09-16 2021-09-16 Outpatient Miladyssanam [facility] [id number] 14:40:00 23:59:59 Carla L 20 2021-09-16 2021-09-16 Outpatient RAYRAY RAYRAY [id number] Memoria 14:40:00 14:40:00 20 rafaela Mast 2021-08-27 2021-08-27 Ambulatory nullFlavo MNA [id number] Memoria 20:00:00 20:00:00 Pre-Reg r Neurology 15 l Ayush Mast 2021-08-27 2021-08-27 Outpatient MHIE IE [id number] Memoria 15:00:00 15:00:00 15 rafaela Mast 2021-08-27 2021-08-27 Outpatient MHIE IE [id number] Memoria 15:00:00 15:00:00 15 rafaela Mast 2021-08-27 2021-08-27 [facility] [id number] 15:00:00 15:00:00 Brett 15 Thien 2021-08-20 2021-08-21 Outpatient nullFlavo MNA [id number] Memoria 20:00:00 04:59:59 r Neurology 18 l Ayush Tavarezann 2021-08-20 2021-08-20 Outpatient ALYSON RojasRISCHSANAM [facility] [id number] 15:00:00 23:59:59 Brett 18 Thien 2021-08-20 2021-08-20 Outpatient MHIE BRAYDON [id number] Memoria 15:00:00 15:00:00 18 rafaela Mast 2021-08-07 2021-08-07 Ambulatory nullFlavo MNA [id number] Memoria 14:15:00 14:15:00 Pre-Reg r Neurology 17 l Ayush Tavarezann 2021-08-07 2021-08-07 Outpatient MHIE RAYRAY [id number] Memoria 09:15:00 09:15:00 17 rafaela Mast 2021-08-07 2021-08-07 Outpatient ALYSON RojasRISCHER [facility] [id number] 09:15:00 09:15:00 Brett 17 Thien 2021-07-02 2021-07-02 ambulatory STLMLC STLMLC [id number] Common 00:00:00 00:00:00 [facility] 2021-06-25 2021-06-26 Outpatient nullFlavo MNA [id number] Memoria 19:30:00 05:59:59 r Neurology 16 l Ayush Tavarezann 2021-06-25 2021-06-25 Outpatient KENYATTA [facility]SCHER [facility] [id number] 13:30:00 23:59:59 Brett 16 Thien 2021-06-25 2021-06-25 Outpatient MHIE ALYSONIE [id number] Memoria 13:30:00 13:30:00 16 rafaela Mast 2021-05-14 2021-05-14 ambulatory STLMLC STLMLC [id number] Common 00:00:00 00:00:00 [facility] 2021-05-01 2021-05-01 ambulatory STLMLC STLMLC [id number] Common 00:00:00 00:00:00 [facility] 2021-03-25 2021-03-25 ambulatory STLMLC STLMLC [id number] Common 00:00:00 00:00:00 [facility] 2021-02-27 2021-02-28 Outpatient nullFlavo MNA [id number] Memoria 14:00:00 04:59:59 r Neurology 14 rafaela Tavarezann 2021-02-27 2021-02-28 Outpatient nullFlavo MNA [id number] Memoria 14:00:00 04:59:59 r Neurology 14 rafaela Tavarezann 2021-02-27 2021-02-27 Outpatient Crystal [facility]ASCHER [facility] [id number] 09:00:00 23:59:59 Brett 14 Thien 2021-02-27 2021-02-27 Outpatient MHIE ALYSONIE [id number] Memoria 09:00:00 09:00:00 14 rafaela Mast 2020-12-28 2020-12-28 Ambulatory nullFlavo MNA [id number] Memoria 20:45:00 20:45:00 Pre-Reg r Neurology 13 rafaela Peacock Pro 2020-12-28 2020-12-28 Ambulatory nullFlavo MNA [id number] Memoria 20:45:00 20:45:00 Pre-Reg r Neurology 13 rafaela Cameron Pro 2020-12-28 2020-12-28 Outpatient MHIE MHIE [id number] Memoria 15:45:00 15:45:00 13 rafaela Mast 2020-12-28 2020-12-28 Outpatient YVES Rojas [facility] [id number] 15:45:00 15:45:00 Brett Neumann 2020-12-11 2020-12-[address] [facility] [id number] Univers 13:30:00 13:30:00 [id number] [facility] 2020-12-11 2020-12-[address] [facility] [id number] Univers 13:30:00 13:30:00 ESTIVEN [facility] 2020-12-11 2020-12-11 Nurse Therapy, Adc Covid Infusion [facility] 1.2.840.114 [id number] Univers 11:28:16 12:28:16 Visit Estiven Sahni 350.1.13.10 [place] [phone] [facility] 053 Branch 2020-12-11 2020-12-11 Orders Doctor JOSE M 1.2.840.114 [id number] Univers 00:00:00 00:00:00 Only Unassigned, KIMBERLY [id number] ity of [place] [facility] 4.2.7.2.686 [place] [phone] [place] [address] Branch 2020-11-28 2020-11-28 Surgery [facility] 1.2.840.114 [id number] 09:50:00 10:29:00 Niyah 350.1.13.10 [place] 4.2.7.2.686 Surgical [phone] [place] 020 2020-11-28 2020-11-28 Surgery [facility] 1.2.840.114 [id number] Univers 09:50:00 10:29:00 Tre Linder 350.1.13.10 ity of [place] [phone] [facility] 020 [place] 2020-11-28 2020-11-28 [facility] [id number] [id number] 08:00:00 10:15:00 Encounter Tre Linder 350.1.13.10 [place] 4.2.7.2.686 Surgical [phone] [place] [address] 2020-11-28 2020-11-28 [facility] 1.2.839.816 [id number] Univers 08:00:00 10:15:00 Encounter Tre Linder 350.1.13.10 ity of [place] [phone] [facility] [address] 2020-11-28 2020-11-[address] [facility] [id number] Univers 08:00:00 08:00:00 [id number] ity [facility] 2020-11-28 2020-11-28 Laboratory Only, [facility] 1.2.840.114 [id number] 07:33:14 07:48:14 Only Test [place] 350.1.13.10 [place] 4.2.7.2.686 Arthur [id number] [facility] 2020-11-28 2020-11-28 Laboratory Only, [facility] Test [facility] 1.2.840. 114 [id number] Univers 07:33:14 07:48:14 Only Tre Louise 350.1.13.1 0 [place] of [place] [id number] [address] 2020-11-27 2020-11-[address] [facility] [id number] Univers 14:15:00 14:15:00 [id number] [facility] 2020-11-27 2020-11-27 [facility] [id number] Univers 14:15:00 14:15:00 [facility] 2020-11-21 2020-11-21 Laboratory Lab, [facility] 1.2.840.114 [id number] 14:03:01 14:23:01 Only Fam Pob I Health 350.1.13.10 [place] 4.2.7.2.686 Professio [phone] nal [address] 2020-11-21 2020-11-21 Laboratory Lab, [facility] Fam Pob I [facility] 1.2. 840.114 [id number] Univers 14:03:01 14:23:01 Only Christine Gregory [facility] 350.1.13.10 ity of [place] 4.2.7.2.686 [place] [phone] [address] Office [facility] 2020-11-21 2020-11-[address] [facility] [id number] Univers 14:20:00 14:20:00 [id number] ity of [facility] 2020-11-21 2020-11-21 Outpatient [facility] [id number] Univers 14:20:00 14:20:00 CHRISTINE ity [facility] 2020-11-21 2020-11-21 Letter Doctor JOSE M 1.2.840.114 [id number] 00:00:00 00:00:00 (Out) Unassigned, KIMBERLY 350.1.13.10 [place] [facility] 4.2.7.2.686 [id number] [facility] 2020-11-21 2020-11-21 Letter Doctor JOSE M 1.2.840.114 [id number] 00:00:00 00:00:00 (Out) Unassigned, KIMBERLY 350.1.13.10 [place] [facility] 4.2.7.2.686 [id number] [facility] 2020-11-21 2020-11-21 Letter Doctor JOSE M 1.2.840.114 [id number] Univers 00:00:00 00:00:00 (Out) Unassigned, KIMBERLY 350.1.13.10 ity of [place] [facility] 4.2.7.2.686 [place] [phone] [address] 2020-11-21 2020-11-21 Letter Doctor JOSE M 1.2.840.114 [id number] Univers 00:00:00 00:00:00 (Out) Unassigned, KIMBERLY 350.1.13.10 ity of [place] [facility] 4.2.7.2.686 [place] [phone] [address] 2020-11-16 2020-11-17 Outpatient nullFlavo MNA [id number] Memoria 21:00:00 04:59:59 r Neurology 12 l [place] 2020-11-16 2020-11-17 Outpatient nullFlavo MNA [id number] Memoria 21:00:00 04:59:59 r Neurology 12 rafaela Mast 2020-11-16 2020-11-16 Outpatient YVES RojasSCHSANAM [id number] 16:00:00 23:59:59 Brett 12 Thien 2020-11-16 2020-11-16 Outpatient MHIE IE [id number] Memoria 16:00:00 16:00:00 12 rafaela [place] 2020-11-14 2020-11-14 [facility] 1.2.092.682 [id number] 06:55:00 08:58:00 Encounter Tre Linder 350.1.13.10 [place] 4.2.7.2.686 Surgical [phone] [place] [address] 2020-11-14 2020-11-14 [facility] 1.2.519.861 [id number] [facility] [place] 06:55:00 08:58:00 Encounter Tre Linder 350.1.13.10 ity of [place] [id number] [place] 696521 [place] 2020-11-14 2020-11-14 Surgery [facility] 1.2.840.114 [id number] 08:00:00 08:42:00 Niyah 350.1.13.10 [place] 4.2.7.2.686 Surgical [id number] [place] [address] 2020-11-14 2020-11-14 Surgery [facility] 1.2.840.114 [id number] Univers 08:00:00 08:42:00 Tre Linder 350.1.13.10 ity of [place] [phone] [facility] 020 [place] 2020-11-14 2020-11-14 Orders Doctor SALGUERO 1.2.840.114 [id number] 00:00:00 00:00:00 Only Unassigned, KIMBERLY 350.1.13.10 [place] [facility] 4.2.7.2.686 [id number] [facility] 2020-11-14 2020-11-14 Orders Doctor JOSE M 1.2.840.114 [id number] Univers 00:00:00 00:00:00 Only Unassigned, KIMBERLY 350.1.13.10 ity of [place] [facility] 4.2.7.2.686 [place] [phone] [address] 2020-11-05 2020-11-05 Closing Machine Operator Vik, [facility] 1.2.840.114 [id number] 11:14:30 11:29:30 Visit Lab Main [place] 350.1.13.10 [place] 4.2.7.2.686 Professio [id number] nal [address] [place] [address] 2020-11-05 2020-11-05 Closing Machine Operator Vik, [facility] Lab Main [facility] 1.2.8 40.114 [id number] Univers 11:14:30 11:29:30 Visit Tre Louise 350.1.13.1 0 ity of [place] [phone] Ia dical [address] 2020-11-05 2020-11-[address] [facility] [id number] Univers 11:15:00 11:15:00 [id number] ity [facility] 2020-11-05 2020-11-05 Outpatient [facility] [id number] Univers 11:15:00 11:15:00 [facility] 2020-11-05 2020-11-05 Orders Doctor SALGUERO 1.2.840.114 [id number] 00:00:00 00:00:00 Only Unassigned, KIMBERLY 350.1.13.10 [place] [facility] 4.2.7.2.686 [id number] 2020-11-05 2020-11-05 Orders Doctor SALGUERO 1.2.840.114 [id number] Univers 00:00:00 00:00:00 Only Unassigned, KIMBERLY 350.1.13.10 ity of [place] [facility] 4.2.7.2.686 [place] [phone] [address] 2020-09-28 2020-09-29 Outpatient nullFlavo MNA [id number] Memoria 21:00:00 04:59:59 r Neurology 09 l Ayush Mast 2020-09-28 2020-09-29 Outpatient nullFlavo MNA [id number] Memoria 21:00:00 04:59:59 r Neurology 09 l Ayush Mast 2020-09-28 2020-09-28 Outpatient KENYATTA RojasSCHSANAM YOUSCHER [id number] 16:00:00 23:59:59 Brett 09 Thien 2020-09-28 2020-09-28 Outpatient MHIE ALYSONIE [id number] Memoria 16:00:00 16:00:00 09 rafaela Mast 2020-06-28 2020-06-28 Ambulatory nullFlavo MNA [id number] Memoria 14:15:00 14:15:00 Pre-Reg r Neurology 11 l Ayush Mast 2020-06-28 2020-06-28 Ambulatory nullFlavo MNA [id number] Memoria 14:15:00 14:15:00 Pre-Reg r Neurology 10 l Ayush Mast 2020-06-28 2020-06-28 Ambulatory nullFlavo MNA [id number] Memoria 14:15:00 14:15:00 Pre-Reg r Neurology 10 l Ayush Mast 2020-06-28 2020-06-28 Ambulatory nullFlavo MNA [id number] Memoria 14:15:00 14:15:00 Pre-Reg r Neurology 11 l Ayush Mast 2020-06-28 2020-06-28 Outpatient MHIE BRAYDON [id number] Memoria 08:15:00 08:15:00 11 rafaela Mast 2020-06-28 2020-06-28 Outpatient MHIE BRAYDON [id number] Memoria 08:15:00 08:15:00 10 rafaela Mast 2020-06-28 2020-06-28 Outpatient YVES RojasSCHER [id number] 08:15:00 08:15:00 Brett 10 Thien 2020-06-28 2020-06-28 Outpatient KENYATTA RojasSCHSANAM MHTARASCHSANAM [id number] 08:15:00 08:15:00 Brett 11 Thien 2020-06-14 2020-06-15 Outpatient nullFlavo MNA [id number] Memoria 15:00:00 05:59:59 r Neurology 08 l Ayush Mast 2020-06-14 2020-06-15 Outpatient nullFlavo MNA [id number] Memoria 15:00:00 05:59:59 r Neurology 08 l Ayush Mast 2020-06-14 2020-06-14 [facility] [id number] 09:00:00 23:59:59 Brett 08 Thien 2020-06-14 2020-06-14 Outpatient MHIE IE [id number] Memoria 09:00:00 09:00:00 08 rafaela Mast 2020-05-04 2020-05-04 Ambulatory nullFlavo MNA [id number] Memoria 15:15:00 15:15:00 Pre-Reg r Neurology 07 l Ayush Mast 2020-05-04 2020-05-04 Ambulatory nullFlavo MNA [id number] Memoria 15:15:00 15:15:00 Pre-Reg r Neurology 07 l Ayush Mast 2020-05-04 2020-05-04 Outpatient MHIE IE [id number] Memoria 09:15:00 09:15:00 07 rafaela Mast 2020-05-04 2020-05-04 Outpatient [facility] [id number] 09:15:00 09:15:00 Brett 07 Thien 2020-03-16 2020-03-16 Ambulatory nullFlavo MNA [id number] Memoria 21:45:00 21:45:00 Pre-Reg r Neurology 06 l Ayush Mast 2020-03-16 2020-03-16 Ambulatory nullFlavo MNA [id number] Memoria 21:45:00 21:45:00 Pre-Reg r Neurology 06 l Ayush Tavarezann 2020-03-16 2020-03-16 Outpatient MHIE IE [id number] Memoria 15:45:00 15:45:00 06 rafaela TavarezPro 2020-03-16 2020-03-16 Outpatient [facility] [id number] 15:45:00 15:45:00 Brett 06 Thien 2019-12-21 2019-12-21 Ambulatory nullFlavo MNA [id number] Memoria 18:30:00 18:30:00 Pre-Reg r Neurology 04 l Ayush Mast 2019-12-21 2019-12-21 Ambulatory nullFlavo MNA [id number] Memoria 18:30:00 18:30:00 Pre-Reg r Neurology 04 l Ayush Mast 2019-12-21 2019-12-21 Outpatient IE IE [id number] Memoria 13:30:00 13:30:00 04 rafaela [place] 2019-12-21 2019-12-21 Outpatient Crystal [facility] [id number] 13:30:00 13:30:00 Brett Thien 2019-10-26 2019-10-27 Outpatient nullFlavo MNA [id number] Memoria 19:45:00 04:59:59 r Neurology 05 l Ayush [place] 2019-10-26 2019-10-27 Outpatient nullFlavo MNA [id number] Memoria 19:45:00 04:59:59 r Neurology 05 l Cameron Pro 2019-10-26 2019-10-26 Outpatient Crystal [facility] [id number] 14:45:00 23:59:59 Brett 05 Thien 2019-10-26 2019-10-26 Ambulatory nullFlavo MNA [id number] Memoria 19:45:00 19:45:00 Pre-Reg r Neurology 03 l Ayush [place] 2019-10-26 2019-10-26 Ambulatory nullFlavo MNA [id number] Memoria 19:45:00 19:45:00 Pre-Reg r Neurology 03 l Cameron [place] 2019-10-26 2019-10-26 Outpatient IE IE [id number] Memoria 14:45:00 14:45:00 05 rafaela [place] 2019-10-26 2019-10-26 Outpatient [facility] [id number] 14:45:00 14:45:00 Brett 03 Thien 2019-10-26 2019-10-26 Outpatient IE RAYRAY [id number] Memoria 09:45:00 09:45:00 03 rafaela [place] 2019-09-28 2019-09-29 Outpatient nullFlavo MNA [id number] Memoria 20:15:00 04:59:59 r Neurology 02 l Cameron [place] 2019-09-28 2019-09-29 Outpatient nullFlavo MNA [id number] Memoria 20:15:00 04:59:59 r Neurology 02 l Cameron 2019-09-28 2019-09-28 Outpatient Crystal [facility] [id number] 15:15:00 23:59:59 Brett 02 Thien 2019-09-28 2019-09-28 Outpatient MHIE MHIE [id number] Memoria 15:15:00 15:15:00 02 l [place] 2019-09-23 2019-09-24 Outpatient nullFlavo MNA [id number] Memoria 13:15:00 04:59:59 r Neurology 01 l Cameron 2019-09-23 2019-09-24 Outpatient nullFlavo MNA [id number] Memoria 13:15:00 04:59:59 r Neurology 01 l Cameron Pro 2019-09-23 2019-09-23 Outpatient Crystal MISCHER MHMISCHER [id number] 08:15:00 23:59:59 Brett 01 2019-09-23 2019-09-23 Outpatient MHIE MHIE [id number] Memoria 08:15:00 08:15:00 01 l Pro 2019-09-22 2019-09-23 Outpatient nullFlavo MNA [id number] Memoria 15:00:00 04:59:59 r Neurology 00 l Cameron [place] 2019-09-22 2019-09-23 Outpatient nullFlavo MNA [id number] Memoria 15:00:00 04:59:59 r Neurology 00 l Cameron Pro 2019-09-22 2019-09-22 Outpatient Crystal M[facility] M[facility] [id number] 10:00:00 23:59:59 Brett 00 2019-09-22 2019-09-22 Outpatient MHIE MHIE [id number] Memoria 10:00:00 10:00:00 00 l Pro 2019-08-04 2019-08-04 Telephone JOSE M Benitez 1.2.840.114 [id number] 00:00:00 00:00:00 Amita HARRIS 350.1.13.10 [facility] 4.2.7.2.686 [id number] 2019-08-04 2019-08-04 Telephone JOSE M Long [id number] 00:00:00 00:00:00 Silvia HARRIS 350.1.13.10 [facility] 4.2.7.2.686 [id number] 2019-08-04 2019-08-04 Telephone JOSE M Benitez 1.2.840.114 [id number] [facility] 00:00:00 00:00:00 Amita HARRIS 350.1.13.10 it y of [facility] 4.2.7.2.686 [place] [phone] [address] 2019-08-04 2019-08-04 Telephone JOSE M Long [id number] [facility] 00:00:00 00:00:00 Silvia HARRIS 350.1.13.10 it y [facility] 4.2.7.2.686 [place] [id number] [address] 2019-08-02 2019-08-02 [id number] [facility] 08:40:00 08:40:00 BARBARA sealsmakayla [facility] 2019-08-02 2019-08-02 Urgent Pob1, Acute [facility] 1.2.840.114 [id number] 08:02:14 08:22:14 [facility] 350.1.13.10 [place] 4.2.7.2.686 Professio [phone] [place] [address] Office [facility] 2019-08-02 2019-08-02 Urgent Pob1, Acute Care [facility] 1. 2.840.114 [id number] [facility] 08:02:14 08:22:14 [facility] 350.1.13.10 ity [facility] 4.2.7.2.686 [place] Professio [phone] [address] Office [address] Results Test Description Test Time Test Comments Results Result Comments Source POCT Glucose 2020-11-28 13:30:00 Test Item Value Reference Range Interpretation Comme nts POCT Glu (age>30days) (test code = 3342) 101 mg/dL 70-110 [facility] [id number] 13:30:00 Test Item Value Reference Range Interpretation Comments POCT Glu (age>30days) (test code = 101 mg/dL 70-110 3342) [facility]ID [facility]2020-11-28 13:07:35 Test Item Value Reference Range Interpretation Comments SARS-CoV-2 Rapid ID NOW Not Detected Not Detected (test code = 29002-1) CHRISTINE (test code = CHRISTINE) ID NOW COVID-19 Assay is an isothermal nucleic acid amplification test intended for the qualitative detection of nucleic acid from SARS-CoV-2 viral RNA in nasopharyngeal (RECORDING STUDIO SET UP WORKER) specimens. It is used under Emergency Use Authorization (EUA) by FDA. The limit of detection (LOD) of the assay is 125 Genome Equivalents/mL. A positive result is indicative of the presence of SARS-CoV-2 RNA. ?Clinical correlation with patient history and other diagnostic information is necessary to determine patient infection status. A negative (Not Detected) result does not preclude SARS-CoV-2 infection. In patients with clinical symptoms and other tests that are consistent with SARS-CoV-2 infection, negative results should be treated as presumptive negative and a new specimen should be tested with alternative PCR molecular test. Invalid: Please collect a new specimen for repeat patient testing if clinically indicated. Lab Interpretation Normal (test code = 98522-6) [facility] [id number] 12:16:00 Test Item Value Reference Range Interpretation Comments POCT Glu (age>30days) (test code = 1226 mg/dL 70-110 A 3342) Lab Interpretation (test code = Abnormal 23299-8) [facility] [id number] 12:16:00 Test Item Value Reference Range Interpretation Comments POCT Glu (age>30days) (test code = 1226 mg/dL 70-110 A 3342) Lab Interpretation (test code = Abnormal 95039-9) [facility] WITH [id number] 16:31:33 Test Item Value Reference Range Interpretation Comments WBC (test code = See_Comment [Automated 6690-2) message] The sy stem which generated this result transmitted reference range : 4.20 - 10.70 10*3/?L. The reference range was not used to interpret this result as normal/abnormal . RBC (test code = See_Comment [Automated 789-8) message] The sy stem which generated this result transmitted reference range : 4.26 - 5.52 10*6/?L. The reference range was not used to interpret this result as normal/abnormal . HGB (test code = 12.7 g/dL 12.2-16.4 718-7) HCT (test code = 38.9 % 38.4-49.3 4544-3) MCV (test code = 86.8 fL 81.7-95.6 787-2) MCH (test code = 28.3 pg 26.1-32.7 785-6) MCHC (test code = 32.6 g/dL 31.2-35.0 786-4) RDW-SD (test code = 43.9 fL 38.5-51.6 84500-2) RDW-CV (test code = 13.7 % 12.1-15.4 788-0) PLT (test code = See_Comment [Automated 777-3) message] The sy stem which generated this result transmitted reference range : 150 - 328 10*3/ ?L. The reference r alexandra was not used to interpret this result as normal/abnormal . MPV (test code = 9.7 fL 9.8-13.0 L 82086-7) NRBC/100 WBC (test See_Comment [Automat ed code = [id number]) message] The system which generated this result transmitted reference range : 0.0 - 10.0 /100 WBCs. The refer ence range was not u sed to interpret th is result as normal/abnormal . NRBC x10^3 (test code <0.01 See_Comment [Auto mated = [id number]) message] The s ystem which generated this result transmitted reference range : 10*3/?L. The reference range was not used to interpret this result as normal/abnormal . GRAN MAT (NEUT) % 66.1 % (test code = 770-8) IMM GRAN % (test code 0.50 % = 8232081141) LYMPH % (test code = 21.0 % 736-9) MONO % (test code = 8.9 % 5905-5) EOS % (test code = 3.0 % 713-8) BASO % (test code = 0.5 % 706-2) GRAN MAT x10^3(ANC) 4.99 10*3/uL 1.99-6.95 (test code = 9332930007) IMM GRAN x10^3 (test 0.04 10*3/uL 0.00-0.06 code = 7870166314) LYMPH x10^3 (test code 1.59 10*3/uL 1.09-3.23 = 731-0) MONO x10^3 (test code 0.67 10*3/uL 0.36-1.02 = 742-7) EOS x10^3 (test code = 0.23 10*3/uL 0.06-0.53 711-2) BASO x10^3 (test code 0.04 10*3/uL 0.01-0.09 = 704-7) Lab Interpretation Abnormal (test code = 50820-3) [facility])2019-08-02 13:46:00 Test Item Value Reference Range Interpretation Comments POCT GP A STREP (test code = Negative Negative - Negative 46959-0) Lab Interpretation (test code = Normal 16897-6) [facility]
[2022-01-15] MEDS ORDERED: TETANUS & DIPHTHERIA TOX,ADULT 0.5 ML VIAL ONE (17:05)
--- NOTE | 2022-01-15 17:44 | ER ---
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 Coronavirus screen: At this time, the client does not indicate any symptoms associated with coronavirus-19. Ebola Screen: Patient negative for fever greater than or equal to 101.5 degrees Fahrenheit, and additional compatible Ebola Virus Disease symptoms Patient denies exposure to infectious person. Patient denies travel to an Ebola-affected area in the 21 days before illness onset. No symptoms or risks identified at this time. Onset of symptoms was January 15, 2022. 16:31 Method Of Arrival: Ambulatory iw 16:31 Acuity: WILLA 4 iw 16:47 Initial Sepsis Screen: Does the patient meet any 2 criteria? No. Patient's initial iw sepsis screen is negative. Does the patient have a suspected source of infection? No. Patient's initial sepsis screen is negative. Risk Assessment: Do you want to hurt yourself or someone else? Patient reports no desire to harm self or others. Historical: - Allergies: 16:33 Codeine; iw 16:33 PENICILLINS; iw - PMHx: 16:33 Diabetes - NIDDM; Hypertension; iw - Immunization history:: Adult Immunizations unknown, Last tetanus immunization: unknown. - Social history:: Smoking status: Patient denies any tobacco usage or history of. Screenin:13 Abuse screen: Denies threats or abuse. Nutritional screening: No deficits noted. bm7 Tuberculosis screening: No symptoms or risk factors identified. Fall Risk None identified. Assessment: 17:13 Reassessment: Patient and/or family updated on plan of care and expected duration. Pain bm7 level reassessed. Patient is alert, oriented x 3, equal unlabored respirations, skin warm/dry/pink. 17:59 Pain: Complains of pain in right hand. bm7 Vital Signs: 16:47 BP 137 / 84; Pulse 71; Resp 16; Temp 98.1; Pulse Ox 98% on R/A; iw ED Course: 16:15 Patient arrived in ED. mr 16:15 Rome Bush MD is Private Physician. mr 16:20 Arnold Ybarra PA is [facility] 16:20 Mike Guadalupe MD is Attending Physician. jmm 16:33 Triage completed. iw 16:33 Arm band placed on. iw 17:13 No apparent distress. Resting quietly. Awaiting ED provider evaluation. bm7 17:13 Patient has correct armband on for positive identification. Call light in reach. Client bm7 placed on continuous cardiac and pulse oximetry monitoring. NIBP monitoring applied. 17:13 Patient maintains SpO2 saturation greater than 95% on room air. bm7 17:59 Assist provider with laceration repair on right hand that was 2.5 cm. or less using bm7 sutures. Set up tray. Performed by Arnold WILCOX Dressed with 4X4s, Kerlix, Neosporin, Patient tolerated well. Patient did not have IV access during this emergency room visit. Administered Medications: 17:00 Drug: Tetanus-Diphtheria Toxoid Adult 0.5 ml {Target Trimmer: [employer]. Exp: ss 07/09/2022. Lot #: [id number]. } Route: IM; Site: right deltoid; 17:14 Follow up: Response: No adverse reaction bm7 Medication: 17:13 Vaccine Information Statement (VIS) provided today. Questions and/or concerns bm7 addressed. VIS edition date: January 15, 2022. Outcome: 17:44 Discharge ordered by . [facility] 17:59 Discharged to home ambulatory. bm7 17:59 Condition: good 17:59 Discharge instructions given to patient, Instructed on discharge instructions, follow up and referral plans. medication usage, Demonstrated understanding of instructions, follow-up care, medications, Prescriptions given X 1. 18:01 Patient left the ED. 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
--- NOTE | 2022-01-15 17:44 | EDPHYS ---
Physician Documentation [facility] Name: Alec Ortiz Jr Age: 66 yrs Sex: Male : 1955 Arrival Date: 01/15/2022 Time: 16:15 Bed 12 Private MD: Rome Bush R ED Physician Mike Guadalupe HPI: 01/15 16:48 This 66 yrs old Male presents to ER via Ambulatory with complaints of Skin jmm Tear(s). 16:48 The patient or guardian reports injury, pain. Onset: The symptoms/episode jmm began/occurred acutely, just prior to arrival. This 66-year-old male with a history of diabetes mellitus and hypertension the presents emerged department with a laceration to his right index finger. Patient states as he was mowing the lawn more when under the fence pulling his hand underneath. Patient is unsure on tetanus immunization. Denies other injury.. Historical: - Allergies: 16:33 Codeine; iw 16:33 PENICILLINS; iw - PMHx: 16:33 Diabetes - NIDDM; Hypertension; iw - Immunization history:: Adult Immunizations unknown, Last tetanus immunization: unknown. - Social history:: Smoking status: Patient denies any tobacco usage or history of. ROS: 16:48 Constitutional: Negative for fever, chills, and weight loss, Cardiovascular: Negative jmm for chest pain, palpitations, and edema, Respiratory: Negative for shortness of breath, cough, wheezing, and pleuritic chest pain. 16:48 Skin: Positive for laceration(s). 16:48 All other systems are negative. Exam: 16:48 Constitutional: This is a well developed, well nourished patient who is awake, alert, jmm and in no acute distress. Head/Face: atraumatic. Eyes: EOMI, no conjunctival erythema appreciated ENT: Moist Mucus Membranes Neck: Trachea midline, Supple Chest/axilla: Normal chest wall appearance and motion. Cardiovascular: Regular rate and rhythm. No edema appreciated Respiratory: Normal respirations, no respiratory distress appreciated Abdomen/GI: Non distended Back: Normal ROM 16:48 Musculoskeletal/extremity: Full range of motion noted to the right hand and the right index finger at the PIP and the DIP. Less than 2-second distal cap refill, compartments are soft, neurovascular intact. 16:48 Skin: Avulsion/abrasion noted to the right index finger on the dorsal surface, mild bleeding appreciated. 16:48 Neuro: Orientation: is normal, Mentation: is normal, Memory: is normal. 16:48 Psych: Behavior/mood is pleasant, cooperative. Vital Signs: 16:47 BP 137 / 84; Pulse 71; Resp 16; Temp 98.1; Pulse Ox 98% on R/A; iw MDM: 16:48 Patient medically screened. [facility] 17:43 Data reviewed: vital signs, nurses notes. Counseling: I had a detailed discussion with juventino the patient and/or guardian regarding: the historical points, exam findings, and any diagnostic results supporting the discharge/admit diagnosis, the need for outpatient follow up, to return to the emergency department if symptoms worsen or persist or if there are any questions or concerns that arise at home. ED course: Patient is alert nontoxic appearance in the ED. Wound was cleaned. Dressing applied. Patient given wound infection return precautions. Patient understood agrees plan of care.. 01/15 17:39 Order name: [facility]. 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 Exp: ss 07/09/2022. Lot #: [id number]. } Route: IM; Site: right deltoid; 17:14 Follow up: Response: No adverse reaction bm7 Disposition Summary: 01/15/22 17:44 Discharge Ordered Location: Home [facility] Condition: Stable [facility] Diagnosis - Abrasion of finger [facility] Followup: [facility] - With: Private Physician - When: 2 - 3 days - Reason: Recheck today's complaints, Continuance of care, Re-evaluation by your physician Discharge Instructions: - Discharge Summary Sheet [facility] - Abrasion [facility] Forms: - Medication Reconciliation Form [facility] - Thank You Letter [facility] - Antibiotic Education [facility] - Prescription Opioid Use [facility] Prescriptions: - Doxycycline Hyclate 100 mg Oral Tablet - take 1 tablet by ORAL route every 12 hours; 20 tablet; Refills: 0, Product [facility] Selection Permitted Signatures: Arnold Ybarra PA PA jm Linda Humphreys RN RN Leah Arriola RN RN Phillips, Lauren, RN RN bm7
== END 2022-01-15 18:01 | disposition home or self-care (01) ==
LOC: ER 16:14
DX: S60.410A Abrasion of right index finger, initial encounter (principal); Z23 Encounter for immunization
CPT/HCPCS: 90714

== ENCOUNTER 2022-02-28 10:29 | Day surgery (SDC) | payer OTHER ==
[2022-02-25 14:58] LABS: Absolute Lymphocytes (CBC) 1.8 K/uL (0.7-4.9); Hematocrit 41.9 % (39.6-49.0); Lymphocytes % 21.9 % (15.3-44.8); MCV 82.8 fL (80-100); MPV 8.3 fL (7.6-11.3); RBC Red Blood Cell Count 5.07 M/uL (4.33-5.43)
--- NOTE | 2022-02-25 15:07 | RAD REPORT ---
EXAM DESCRIPTION: Eric Davis And Jeny (2 Views)02/25/2022 2:45 pm CLINICAL HISTORY: Melanoma/preop COMPARISON: May 2021 FINDINGS: The lungs appear clear of acute infiltrate. The heart is normal size IMPRESSION: No acute abnormalities displayed
[2022-02-25 15:12] LABS: Potassium 4.4 mmol/L (3.5-5.1)
--- NOTE | 2022-02-27 14:22 | EKG ---
Test Date: 2022-02-25 Test Time: 14:24:58 Wire Twisting Machine Operator: KIMBERLYN MEASUREMENT RESULTS: Intervals: Rate: 70 CA: 146 QRSD: 82 QT: 374 QTc: 403 [place]: P: 58 CA: 146 QRS: 87 T: 31 INTERPRETIVE STATEMENTS: Normal sinus rhythm Normal ECG Compared to ECG 12/10/2020 08:03:39 No significant changes Electronically Signed On 02-27-22 14:18:19 CDT by Prateek Duarte
[2022-02-28] MEDS ORDERED: FENTANYL CITR 100 MCG/2 ML ONE (10:43)
[2022-02-28] MEDS ORDERED: propofoL 200 MG/20 ML VIAL IV ONE (10:43)
[2022-02-28] MEDS ORDERED: MIDAZOLAM HCL 2 MG/2 ML INJ ONE (10:43)
[2022-02-28] MEDS ORDERED: KETOROLAC 30 MG/ML INJ ONE (10:44)
[2022-02-28] MEDS ORDERED: LIDOCAINE 2% MPF 5 ML VIAL ONE (10:44)
[2022-02-28] MEDS ORDERED: dexAMETHasone 4 MG/ML VIAL ONE (10:44)
[2022-02-28] MEDS ORDERED: ONDANSETRON 4 MG/2 ML VIAL ONE (10:44)
[2022-02-28] MEDS ORDERED: NA CHLORIDE 0.9% 1,000 ML ONE ×3 (10:50→15:08)
[2022-02-28] MEDS ORDERED: ACETAMINOPHEN 500 MG TAB ONE (11:12)
[2022-02-28] MEDS ORDERED: CELECOXIB 100 MG CAPSULE ONE (11:12)
[2022-02-28] MEDS ORDERED: LIDOCAINE 1% W/EPI 1:100,000 50 ML MDV ONE (11:15)
[2022-02-28] MEDS ORDERED: LIDOCAINE 1% 20 ML MDV ONE (11:16)
[2022-02-28] MEDS ORDERED: LIDOCAINE 1% W/EPI 1:100,000 30 ML VIAL ONE (12:06)
[2022-02-28] MEDS ORDERED: CIPROFLOXACIN 400mg IV 400 MG/200 ML BAG IV ONE (13:05)
[2022-02-28] MEDS ORDERED: Phenylephrine HCl 10 MG/ML 1 ML VIAL ONE (13:41)
[2022-02-28] MEDS ORDERED: NS 0.9% VIAL 10 ML ONE (13:42)
[2022-02-28] MEDS ORDERED: EPHEDRINE SULF 50 MG/ML VIAL ONE (13:42)
--- NOTE | 2022-02-28 14:34 | P.BOP ---
Preoperative diagnosis: right anterior neck melanoma in situ, posterior scalp ulcerated mass Postoperative diagnosis: same Primary procedure: 1. Wide excision of right anterior neck melanoma in situ 2x2 Secondary procedure: 2. Wiude excision posterior scalp ulcerated mass 2x2 Estimated blood loss: <10cc Specimen: mass x 2 Anesthesia: General Complications: None Transferred to: Recovery Room Condition: Good
[2022-02-28] MEDS: HYDROMORPHONE HCL 1 MG/ML INJ ONE ×6 (14:41→14:58)
[2022-02-28 15:23] VITALS: TEMP 97
[2022-02-28 16:11] VITALS: BP 104/77; O2SAT 98
--- NOTE | 2022-03-05 22:30 | OP ---
Surgeon: Arsenio Chris MD Preoperative Diagnoses: Right anterior neck melanoma in situ and also posterior scalp ulcerated mass . Postoperative Diagnoses: Right anterior neck melanoma in situ and also posterior scalp ulcerated mas s. Procedures: 1.Wide excision of right anterior neck melanoma in situ, 2 x 2 cm. 2.Wide excision of posterior scalp ulcerated mass, 2 x 2 cm. Estimated Blood Loss: Less than 10 cc. Specimen: Mass. Anesthesia: General plus local. Indications: This is a case of a male who comes to us with 2 problems. He wants 2 of them solved at the same time. He has some medical issues and so he held his anticoagulation and he wants to take t his opportunity to remove 2 of the masses at the same time. One of them was diagnosed by his dermato logist as a melanoma in situ and underwent wide excision and other one is suspicious also for a skin cancer, although there is no biopsy of that done yet. We are going to take this opportunity to do a biopsy at the same time. The benefits, alternatives, and risks of wide excision of these lesions wer e fully explained, which include, but are not limited to infection, bleeding, damage to adjacent stru ctures, anesthesia complication, recurrence, AL and even . He also understands this may not rel ieve the symptoms and he might need more than one surgical intervention, depends on the final patholo gy. He understood and signed a consent. Procedure In Detail: The patient was brought to the operating room and placed in supine position. A nesthesia was done without complication. The 2 areas were previously marked by me and the patient in the holding room. We positioned the patient in a way to be able to remove 2 masses at the same time with one anesthesia setting, but at the same time we used different instruments to avoid cross conta mination. We did the posterior scalp area first. First we prepped and draped once again both areas in the usual sterile fashion. We went to the posterior scalp first, we did a wide excision all the w ay down to galea. The area was irrigated and hemostasis was obtained. We obtained gross negative ma rgins and then proceeded to close that with nylon stitches. Hemostasis, local anesthetic and irrigat ion were done before closure. The patient tolerated the procedure well. That area was covered. The n once again, we had different instruments to treat the area of the melanoma on the anterior neck reg ion. A wedge excision was done with gross negative margin in that area all the way down to fatty tis bert. Mass was excised, marked for orientation and closed this with a combination of 3-0 chromic and nylon. After the hemostasis was obtained, irrigation was done and local anesthesia was applied. The patient tolerated the procedure well. The patient was sent to recovery in stable condition. INEZ/ORLANDO Voice ID: [id number] Report ID: [id number]
--- NOTE | 2022-03-05 22:30 | DS ---
Date of Discharge: 02/28/2022 Diagnoses: Melanoma in situ on the neck and also posterior scalp ulcerated mass. Procedure: Wide excision of both. Disposition: Home. Activity: As tolerated, no heavy lifting. Follow Up: In my office in 1 week. Call for appointment at [phone]. Discharge Instructions: Keep area dry for 48 hours then may shower. INEZ/ORLANDO Voice ID: [id number] Report ID: [id number]
--- NOTE | 2022-03-05 22:33 | OP ---
Surgeon: Arsenio Chris MD Preoperative Diagnoses: Right anterior neck melanoma in situ and posterior scalp ulcerated mass. Postoperative Diagnoses: Right anterior neck melanoma in situ and posterior scalp ulcerated mass. Procedure: Wide excision. DICTATION ENDS HERE INEZ/ORLANDO Voice ID: [id number] Report ID: [id number]
== END 2022-02-28 16:33 | disposition home or self-care (01) ==
LOC: OR 10:29
PROVIDERS: ATTEND Surgery
PROC: 0JB00ZZ Excision of Scalp Subcutaneous Tissue and Fascia, Open Approach (ICD-10-PCS; 2022-02-28)
PROC: 0JB40ZZ Excision of Right Neck Subcutaneous Tissue and Fascia, Open Approach (ICD-10-PCS; principal; 2022-02-28 12:30)
DX: L72.0 Epidermal cyst (principal); R22.1 Localized swelling, mass and lump, neck; L90.5 Scar conditions and fibrosis of skin
CPT/HCPCS: 93005; 85025; 80048; 36415; 82947 ×2; 88304; 88305; 71046; 11424; 11423; J2704; J1100; J2370; J2001; J2250; J3010; A4216; J1170 ×2; J7030 ×3; J2405; J0744

== ENCOUNTER 2022-04-02 09:31 | Day surgery (SDC) | payer OTHER ==
[2022-03-28 13:09] LABS: Absolute Lymphocytes (CBC) 1.6 K/uL (0.7-4.9); Hematocrit 42.2 % (39.6-49.0); Lymphocytes % 21.6 % (15.3-44.8); MCV 83.9 fL (80-100); MPV 8.3 fL (7.6-11.3); RBC Red Blood Cell Count 5.03 M/uL (4.33-5.43)
[2022-03-28 13:19] LABS: Potassium 4.3 mmol/L (3.5-5.1)
[2022-04-02] MEDS ORDERED: NA CHLORIDE 0.9% 1,000 ML ONE (09:42)
[2022-04-02] MEDS ORDERED: CELECOXIB 100 MG CAPSULE ONE (10:08)
[2022-04-02] MEDS ORDERED: ACETAMINOPHEN 500 MG TAB ONE (10:08)
[2022-04-02] MEDS ORDERED: propofoL 200 MG/20 ML VIAL IV ONE (10:43)
[2022-04-02] MEDS ORDERED: MIDAZOLAM HCL 2 MG/2 ML INJ ONE (10:44)
[2022-04-02] MEDS ORDERED: ROCURONIUM 50 MG/5 ML VIAL IV ONE (10:44)
[2022-04-02] MEDS ORDERED: FENTANYL CITR 100 MCG/2 ML ONE (10:44)
[2022-04-02] MEDS ORDERED: ONDANSETRON 4 MG/2 ML VIAL ONE (10:45)
[2022-04-02] MEDS ORDERED: LIDOCAINE 2% MPF 5 ML VIAL ONE (10:45)
[2022-04-02] MEDS ORDERED: CIPROFLOXACIN 400mg IV 400 MG/200 ML BAG IV ONE (11:09)
[2022-04-02] MEDS ORDERED: EPHEDRINE SULF 50 MG/ML VIAL ONE (11:38)
--- NOTE | 2022-04-02 12:08 | P.BOP ---
Preoperative diagnosis: incisional umbilical tender hernia Postoperative diagnosis: umbilical hernia and ventral hernia plus adhesions ( see picture) Primary procedure: 1. Laparoscopic repair of ventral and umbilical hernia with mesh Secondary procedure: 2. Laparoscopic lysis of adhesions Digital Designer: BRANDIN STOREY (HEDIS COORDINATOR) Estimated blood loss: <10cc Specimen: hernia sac ventral and umbilical Anesthesia: General Complications: None Implants: large ventralex mesh/sorbafix Transferred to: Recovery Room Condition: Good
[2022-04-02] MEDS ORDERED: NEOSTIGMINE 1 MG/ML -5 ML ONE (12:11)
[2022-04-02] MEDS ORDERED: GLYCOPYRROLATE 0.2 MG/ML SYR ONE (12:11)
[2022-04-02] MEDS ORDERED: KETOROLAC 30 MG/ML INJ ONE (12:14)
[2022-04-02] MEDS ORDERED: HYDROCODONE/APAP 10/325 TAB ONE (13:50)
[2022-04-02 13:53] VITALS: BP 113/55; TEMP 96.5; O2SAT 96
--- NOTE | 2022-04-02 19:25 | OP ---
Date of Procedure: 04/02/2022 Surgeon: Arsenio Chris MD Diagnoses: Ventral hernia, umbilical hernia, and intraabdominal adhesions. Procedures: Laparoscopic repair of ventral umbilical hernia with mesh and laparoscopic lysis of adhe sions. Disposition: Home. Activity: As tolerated. No heavy lifting. Follow Up: Follow up in my office in 1 week. Call for appointment at [phone]. Keep area dry until he sees us again once again in office. Patient advised the importance of ambulation. INEZ/ORLANDO Voice ID: [id number] Report ID: [id number]
--- NOTE | 2022-04-02 19:25 | OP ---
Date of Procedure: 04/02/2022 Surgeon: Arsenio Chris MD Preoperative Diagnosis: Incisional umbilical tender hernia. Postoperative Diagnoses: Umbilical and ventral hernia with also intraabdominal adhesions. Procedures: 1.Laparoscopic repair of ventral and umbilical hernia with mesh. 2.Laparoscopic lysis of adhesions. Estimated Blood Loss: Less than 10 cc. Specimens: Hernia sac, ventral and umbilical. Anesthesia: General plus local. Findings: The patient has 2 hernias, 1 on the supraumbilical ventral region and other 1 in the infra umbilical ventral region. Both of those hernias have to be fixed as they were close to each other, s o we were able to make that 1 repair and cover the area with 1 piece of mesh to overlap the area of a bout 3 to 5 cm. Going through this hernia are incarcerated omentum that in order for me to bring molly n, I have to use the LigaSure since patient has many adhesions at the midline. Indications: This is a case of a male who comes to us with hernias and abdominal pain. The benefits , alternatives, and risks of laparoscopic possible repair with ventral hernia/umbilical hernia with m esh were fully explained to the patient, which include, but are not limited to infection, bleeding, d amage to adjacent structures, anesthesia complication, recurrence, [place], and even . He also under stands this may not relieve his symptoms. He may need more than one surgical intervention. He under stood and signed a consent. We explained to him the possible use of mesh. Pros and cons of that wer e discussed. All of his questions were answered to his satisfaction. Procedure In Detail: The patient was brought to the operating room, placed in supine position, and a nesthesia was done without complication. Abdominal area was prepped and draped in a sterile fashion. Marcaine 0.5% was injected for local anesthetic followed by sharp incision of the skin in the supra umbilical region. Incision was carried down to fascia. We noticed the patient to have, what we call ed an umbilical hernia in that area over the incision itself. Once we put my finger in by digitaliza tion, we noticed the patient had another hernia in the ventral region. So we put a Juliette trocar thr ough this one first and put Vicryl #1 inside the fascia. I put a Juliette trocar, put the scope in, an d then we visualized there were 2 hernias instead of 1, but also we visualized that there were a lot of adhesions in the midline area. So I placed a 5 mm trocar in left and right abdomen and this under direct visualization. This allowed me to change my camera to a 5 mm and visualized the middle and t rying to understand what is going on with him. In order for me to reduce those hernias, I need to us e LigaSure since the patient has multiple dense adhesions that did not remove by just pulling. So us ing the help of LigaSure, we proceeded to do lysis of adhesions. There was some intestinal tenting, but we did not touch the intestine and no enterotomies were done. When we relieved the adhesions, th ose intestines became free. Now, when we have adhesions down, we could see the 2 defects and we shawna timoteo we can include both of them, in 1 single repair. So with the help of the umbilical incision, we proceeded to place Vicryl 1 in inside of the fascia in each hernia defect, after the hernia edges wer e cleaned. We closed all the stitches except 1 since we decided to use that opening to drop a Ventra lesa mesh to strap pulls and then the mesh goes nice and flat against the abdominal wall. We used a l arge mesh to overlap the area about 3 to 5 cm. The Ventralex mesh was secured to the anterior abdomi nal wall using a SorbaFix fixation device. The strap of this mesh was removed and then we proceeded to do the final aguilar of the fascia making this waterproof and airproof. We did continue with the fix ation of the mesh circumferentially to diminish the chance of any bowel getting in between. After we finished that and everything nice and flat, we proceeded to look at the area of the previous lysis o f adhesions. It looks intact with no bleeding. At that moment, I proceeded to remove the trocars un jeanette direct vision after deflating the pneumoperitoneum. Irrigated subcutaneous tissue and closed wit h 3-0 chromic and closed the skin areas with the carrol. Sponge count and instrument counts were correct. Patient tolerated the procedure well and patient was sent to [facility] in stable condition. INEZ/JOHNL Voice ID: [id number] Report ID: [id number]
== END 2022-04-02 14:40 | disposition home or self-care (01) ==
LOC: OR 09:31
PROVIDERS: ATTEND Surgery
PROC: 0DNU4ZZ Release Omentum, Percutaneous Endoscopic Approach (ICD-10-PCS; 2022-04-02)
PROC: 0WUF4JZ Supplement Abdominal Wall with Synthetic Substitute, Percutaneous Endoscopic Approach (ICD-10-PCS; principal; 2022-04-02 10:45)
DX: K42.9 Umbilical hernia without obstruction or gangrene (principal); K43.9 Ventral hernia without obstruction or gangrene; K66.0 Peritoneal adhesions (postprocedural) (postinfection); E11.9 Type 2 diabetes mellitus without complications; E78.00 Pure hypercholesterolemia, unspecified; I10 Essential (primary) hypertension; F41.9 Anxiety disorder, unspecified; I51.9 Heart disease, unspecified
CPT/HCPCS: 85025; 80048; 36415; 82947 ×2; 88302; 49652; 49329; J2704; J2001; J2250; J3010; J2710; J7030; J2405; J0744

== ENCOUNTER 2022-06-09 12:19 | Emergency (ER) | payer OTHER ==
--- OUTSIDE RECORDS SUMMARY | 2022-06-09 12:27 | XMS REPORT | Continuity of Care Document ---
:1955 Author Organization [facility] t Address [address] [place] [address] [place] [place] [address] Care Team Providers Name Role Phone Rome Juarez Attending Clinician Unavailable TRE LOUISE Attending Clinician Unavailable Brett Rojas Attending Clinician Carla Jha Attending Clinician VISIT, NURSE UATS Attending Clinician Unavailable SRINIVAS SAHNI Attending Clinician Unavailable Therapy, [facility] Covid Infusion Attending Clinician Unavailable Srinivas Sahni MD Attending Clinician Doctor Unassigned, [place] Attending Clinician Unavailable Tre Louise MD Attending Clinician Only, Adc Test Attending Clinician Unavailable Lab, Adc Fam Pob I Attending Clinician Unavailable Svetlana Gregory MD Attending Clinician SVETLANA GREGORY Attending Clinician Unavailable Pob, Adc Lab Main Attending Clinician Unavailable Eli MAGANA, Amita Ge Attending Clinician Unavailable Silvia Carmona Attending Clinician BARBARA WOOD Attending Clinician Unavailable Pob1, Acute Care Clinic Attending Clinician Unavailable Barbara Wood MD Attending Clinician TRE LOUISE Admitting Clinician Unavailable Tre Louise MD Admitting Clinician Payers Payer Name Policy Type Policy Number Effective Date Expiration Date Abbey dumas [place] [id number] 2018 00:00:00 Blue [employer] 6 [id number] Common Spiri t Blue Shield Formerly [facility], [facility] Problems Condition Condition Condition Status Onset Resolution Last Treating Co mments Source Name Details Category Date Date Treatment Clinician Date [id number] Prostate Problem [place] Com mon 07368 nodule [facility] [id number] Pelvic Problem Active Common pain [facility] [id number] BPH loc w Problem Active Com mon urin Spirit obs/[facility] [id number] Acute Problem Active Common prostatiti Spirit [facility] Diabetes Diabetes Problem Resolve 2021-11-10 Memoria mellitus mellitus d 03:51:39 l in mother in mother Herm candace complicati complicati ng ng childbirth childbirth (disorder) (disorder) Resolved Problem 11/10/2021 [facility] her Neuro No known No known Disease Unive rs active active ity of problems problems [facility] Cervical Cervical Problem Active 2022-03-14 Memoria radiculopa radiculopa 14:01:32 l thy thy Pro (disorder) (disorder) Active Problem 03/14/2022 [facility] her Neuro Diabetes Diabetes Problem Active 2022-03-14 Memoria mellitus mellitus 14:01:32 l (disorder) (disorder) He rmann Active Problem 03/14/2022 [facility] her Neuro Hypertensi Hypertens Problem Active 2022-03-14 Memoria ve tatyana 14:01:32 l disorder, disorder, Herm candace systemic systemic arterial arterial (disorder) (disorder) Active Problem 03/14/2022 [facility] her Neuro Lumbar Lumbar Problem Active 2022-03-14 Trino rhoda radiculopa radiculopa 14:01:32 l thy thy Pro (disorder) (disorder) Active Problem 03/14/2022 [facility] her Neuro Paresthesi Paresthes Problem Active 2022-03-14 Memoria a ia 14:01:32 l (finding) (finding) Herm candace Active Problem 03/14/2022 [facility] her Neuro Peripheral Periphera Problem Active 2022-03-14 Memoria nerve l nerve 14:01:32 l disease disease [place] (disorder) (disorder) Active Problem 03/14/2022 [facility] her Neuro Simple Simple Problem Active 2022-03-14 Trino rhoda obesity obesity 14:01:32 l (disorder) (disorder) He rmann Active Problem 03/14/2022 [facility] her Neuro Coronary Coronary Problem Active 2022-03-14 Memoria arterioscl arterioscl 14:01:32 l erosis erosis [place] (disorder) (disorder) Active Problem 03/14/2022 [facility] her Neuro Pain in Pain in Problem Active 2022-03-14 Me moria testicle testicle 14:01:32 l (finding) (finding) Herm candace Active Problem 03/14/2022 [facility] her Neuro 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 14:01:32 l n n Pro (finding) (finding) Active Problem 03/14/2022 [facility] her Neuro Prostatiti Prostatit Problem Active 2022-03-14 Memoria s is 14:01:32 l (disorder) (disorder) He rmann Active Problem 03/14/2022 [facility] her Neuro Benign Benign Problem Active 2022-03-14 Trino rhoda prostatic prostatic 14:01:32 l hypertroph hypertroph He rmann without without outflow outflow obstructio obstructio n n (disorder) (disorder) Active Problem 03/14/2022 [facility] her Neuro Erectile Erectile Problem Active 2022-03-14 Memoria dysfunctio dysfunctio 14:01:32 l n n Active [place] Problem 03/14/2022 [facility] her Neuro Malignant Malignant Problem Active 2022-03-14 Memoria neoplasm neoplasm 14:01:32 l of skin of skin Pro (disorder) (disorder) Active Problem 03/14/2022 [facility] Neuro Allergies, Adverse Reactions, Alerts Allergy Allergy Status Severity Reaction(s) Onset Inactive Treating Comm ents Source Name Type Date Date Clinician PENICILL Drug Active Other-Cmnt Univ ers INS Class 4-07 ity of 00:00: [place] 00 Medical Branch CODEINE DRUG Active Other-Cmnt Unive rs INGREDI - ity of 00:00: Medical Branch Penicill Propensi Active Other - See U nivers ins ty to comments 08-01 ity of adverse 00:00: [place] reaction 00 Medical s Branch Codeine Codeine Active Unknown [facility] NO KNOWN Drug Active Univers ALLERGIE Class ity of [facility] codeine codeine Active Memoria l [place] penicill penicill Active Memori a in in l [place] Social History Social Habit Start Date Stop Date Quantity Comments Source History of Tobacco [facility] Use [facility] Exposure to Not sure [facility] SARS-CoV-2 (event) [facility] Social History 2022-03-12 2022-03-12 [place] [facility] 21:55:55 21:55:55 Tobacco use and 2020-11-29 2020-11-29 Never used [facility] exposure 00:00:00 00:00:00 Medical [place] Social History 2020-11-16 2020-11-16 [place] [facility] 20:18:11 20:18:11 Smoking Status Start Date Stop Date Source Tobacco smoking status [facility] Unknown if ever smoked [facility] Medications Ordered Filled Start Stop Current Ordering Indication Dosage Frequency Signature Comments Components Source Medication Medication Date Date Medication? Clinician (SIG) Name Name gabapentin 2021-04 Yes 300 mg = 1 M emoria 300 mg oral 1-15 cap, PO, l capsule 20:58: TID, # 270 Herm candace 00 cap, 1 Refill(s), [facility], 170.18, cm, 03/11/22 14:41:00 RN CIRCULATING, Height, 100, kg, 03/11/22 14:41:00 RN CIRCULATING, Weight tamsulosin 2021-04 Yes 0.4 mg = 1 M emoria 0.4 mg oral 0-05 cap, PO, l capsule 19:35: Daily, 30 Mera nn 00 minutes after the same meal, # 90 cap, 3 Refill(s), [facility], clarificat ion requested per fax, 170.18, cm, 11/07/21 15:46:00 CDT, Height, 98.636, kg, 11/07/21 15:46:00 CDT, Weight gabapentin 2021-0 Yes 600 mg = 2 M emoria 300 mg oral 9-22 cap, PO, l capsule 00:30: Bedtime, # Herm candace 00 180 cap, 1 Refill(s), Pharmacy: [facility], 170.18, cm, 11/07/21 15:46:00 CDT, Height, 98.636, kg, 11/07/21 15:46:00 CDT, Weight DULoxetine 2021-0 Yes 60 mg = 1 Me moria 60 mg oral 9-22 cap, PO, l delayed 00:29: Daily, # Kunal n release 00 90 cap, 1 capsule Refill(s), Pharmacy: [facility], 170.18, cm, 11/07/21 15:46:00 CDT, Height, 98.636, kg, 11/07/21 15:46:00 CDT, Weight baclofen 10 2021-0 Yes 10 mg = 1 M emoria mg oral 9-22 tab, PO, l tablet 00:28: BID, # 180 Mera nn 00 tab, 1 Refill(s), Pharmacy: [facility], 170.18, cm, 11/07/21 15:46:00 CDT, Height, 98.636, kg, 11/07/21 15:46:00 CDT, Weight Gralise 600 2021-0 Yes 600 mg = 1 Memoria mg/24 hours 7-14 tab, PO, l oral tablet 21:00: Bedtime, # [place] 00 30 tab, 1 Refill(s), [id number], 170.18, cm, 11/07/21 15:46:00 CDT, Height, 98.636, kg, 11/07/21 15:46:00 CDT, Weight Gralise 600 2-0 Yes 600 mg = 1 Memoria mg/24 hours 7-14 tab, PO, l oral tablet 21:00: Bedtime, # [place] 00 30 tab, 1 Refill(s), [id number], 170.18, cm, 11/07/21 15:46:00 CDT, Height, 98.636, kg, 11/07/21 15:46:00 CDT, Weight tamsulosin 2-0 Yes 0.4 mg = 1 M emoria 0.4 mg oral 6-07 cap, PO, l capsule 22:04: Daily, # Kunal n 00 30 cap, 3 Refill(s), Pharmacy: [facility][id number], 170.18, cm, 09/16/21 14:27:00 CDT, Height, 101.563, kg, 09/16/21 14:27:00 CDT, Weight Trimix 2021-0 Yes Trimix, 6 Memori a 6-07 units, l 22:04: intraCAVER [place] 00 NOSAL, Q24H, PRN sexual intercours e, Papaverine 30mg/mL, Phentolami ne 1mg/mL, Prostaglan din E1 10mcg/mL. 5 mL vial, # 5 mL, Refill(s) 0, Pharmacy: [facility], 170.18, cm, 09/16/21 14:27:00 CDT, Height, 101.563, kg, 05/... tamsulosin 2021-0 Yes 0.4 mg = 1 M emoria 0.4 mg oral 6-07 cap, PO, l capsule 22:04: Daily, # Kunal n 00 30 cap, 3 Refill(s), Pharmacy: [facility] #[id number], 170.18, cm, 09/16/21 14:27:00 CDT, Height, 101.563, kg, 09/16/21 14:27:00 CDT, Weight Trimix 2021-0 Yes Trimix, 6 Memori a 6-07 units, l 22:04: intraCAVER [place] 00 NOSAL, Q24H, PRN sexual intercours e, Papaverine 30mg/mL, Phentolami ne 1mg/mL, Prostaglan din E1 10mcg/mL. 5 mL vial, # 5 mL, Refill(s) 0, Pharmacy: [facility], 170.18, cm, 09/16/21 14:27:00 CDT, Height, 101.563, kg, 05/... Toujeo Max 2021-0 Yes SUB-Q, Memor ia [employer]Star 6-07 Daily, 0 l 21:06: Refill(s) [place] 00 Toujeo Max Yes SUB-Q, Memor ia [employer] 607 Daily, 0 l 21:06: Refill(s) Pro baclofen 10 Yes 10 mg = 1 M emoria mg oral 5-23 tab, PO, l tablet 19:41: TID, 0 Pro 00 Refill(s) baclofen 10 Yes 10 mg = 1 M emoria mg oral 5-23 tab, PO, l tablet 19:41: TID, 0 [place] 00 Refill(s) Flomax 0.4 Yes 0.4 mg = 1 M emoria mg oral 5-23 cap, PO, l capsule 19:40: Daily, 0 Kunal n 00 Refill(s) Basaglar Yes 10 unit, Memor ia KwikPen 5-23 SUB-Q, l 19:40: Daily, 0 Pro 00 Refill(s) Flomax 0.4 Yes 0.4 mg = 1 M emoria mg oral 5-23 cap, PO, l capsule 19:40: Daily, 0 Kunal n 00 Refill(s) Basaglar Yes 10 unit, Memor ia KwikPen 5-23 SUB-Q, l 19:40: Daily, 0 Pro 00 Refill(s) Plavix 75 Yes 75 mg = 1 Mem oria mg oral 5-23 tab, PO, l tablet 19:39: Daily, 0 Pro 00 Refill(s) Lipitor 40 Yes 40 mg = 1 Me moria mg oral 5-23 tab, PO, l tablet 19:39: Daily, 0 Pro 00 Refill(s) Plavix 75 Yes 75 mg = 1 Mem oria mg oral 5-23 tab, PO, l tablet 19:39: Daily, 0 Pro 00 Refill(s) Lipitor 40 Yes 40 mg = 1 Me moria mg oral 5-23 tab, PO, l tablet 19:39: Daily, 0 [place] 00 Refill(s) DULoxetine Yes See Memoria 60 mg oral 5-23 Instructio l delayed 16:44: ns, TAKE 1 Herm candace release 00 CAPSULE BY capsule MOUTH EVERY DAY, # 30 unknown unit, 1 Refill(s), [id number], 167.64, cm, 08/20/21 15:12:00 CDT, Height, 101.506, kg, 08/20/21 15:12:00 CDT, Weight DULoxetine 2021-0 Yes See Memoria 60 mg oral 5-23 Instructio l delayed 16:44: ns, TAKE 1 Herm candace release 00 CAPSULE BY capsule MOUTH EVERY DAY, # 30 unknown unit, 1 Refill(s), [id number], 167.64, cm, 08/20/21 15:12:00 CDT, Height, 101.506, kg, 08/20/21 15:12:00 CDT, Weight Ativan 0.5 Yes See Memoria mg oral 3-04 Instructio l tablet 00:19: ns, Take 1 Mera nn 00 tab po 1 hour prior to MRI, may repeat q 15 min. if still anxious, # 5 tab, 0 Refill(s), [id number], 162.56, cm, 06/25/21 13:26:00 RN CIRCULATING, Height, 98.636, kg, 06/25/21 13:26:00 RN CIRCULATING, Weight Ativan 0.5 0 Yes See Memoria mg oral 3-04 Instructio l tablet 00:19: ns, Take 1 Mera nn 00 tab po 1 hour prior to MRI, may repeat q 15 min. if still anxious, # 5 tab, 0 Refill(s), [id number], 162.56, cm, 06/25/21 13:26:00 RN CIRCULATING, Height, 98.636, kg, 06/25/21 13:26:00 RN CIRCULATING, Weight Flomax 0.4 Flomax 0.4 2021- No 1{capsu QD Flomax 0.4 MG MG 05-01-03 le} MG 00:00: 00:00 00 :00 Flomax 0.4 Flomax 0.4 2021- No 1{capsu QD Flomax 0.4 MG MG 05-01 le} MG 00:00: 00:00 00 :00 Flomax 0.4 Flomax 0.4 2021- No 1{capsu QD Flomax 0.4 MG MG 05-01 le} MG 00:00: 00:00 00 :00 Cipro 500 Cipro 500 2021- No 1{table BID Cipro 500 MG MG 05-01 t} MG 00:00: 00:00 00 :00 DULoxetine 2020-04 Yes See Memoria 60 mg oral 2-20 Instructio l delayed 19:26: ns, TAKE Kunal n release 00 ONE (1) capsule CAPSULE(S) BY MOUTH ONCE A DAY., # 30 ea, 5 Refill(s), Pharmacy: [id number], 167.64, cm, 11/16/20 15:25:00 CDT, Height, 100, kg, 11/16/20 15:25:00 CDT, Weight DULoxetine 2020-04 Yes See Memoria 60 mg oral 2-20 Instructio l delayed 19:26: ns, TAKE Kunal n release 00 ONE (1) capsule CAPSULE(S) BY MOUTH ONCE A DAY., # 30 ea, 5 Refill(s), Pharmacy: [id number], 167.64, cm, 11/16/20 15:25:00 CDT, Height, 100, kg, 11/16/20 15:25:00 CDT, Weight casirivimab 2020- No [id number] 1200mg Univers -imdevimab 12-11 ity of (REGEN-COV 19:45: 20:04 [place] (EUA)) 00 :00 Medical 1,200 mg in Branch NaCl 0.9% (NS) 60 mL IV infusion casirivimab 2020- No [id number] 1200mg 1,200 mg, Univers -imdevimab 12-11 IV ity of (REGEN-COV 19:45: 20:04 Infusion, [place] (EUA[place] 00 :00 ONCE, Tue Medical 1,200 mg in 12/11/20 at Br anch NaCl 0.9% 1445, For (NS) 60 mL 1 IV infusion dose
Ad pst specialist as an IV infusion via pump or gravity over at least 60 minutes through an intravenou s line containing a sterile, in-line or add-on 0.2-micron polyethers ulfone (PES) filter.&nb sp;Stable 36 hours refrigerat ed; 4 hours at room temperatur e. &nbs p;
sodium 2020-0 Yes PRN, Univers chloride 11-28 Starting ity of (NS) 14:31: 11/28/20 [place] injection 00 at 0931, Medica l Until Branch Discontinu ed, Routine, Intra-op sodium 2020-0 2020- No PRN, Univers chloride 11-28 Starting ity of (NS) 14:31: 17:19 11/28/20 [place] injection 00 :28 at 0931, Medica l Until Wed Branch 11/28/20 at 1219, Routine, Intra-op neomycin-po 0 Yes PRN, Univer s lymyxin-dex 11-28 Starting ity of amethasone 14:30: 11/28/20 [place] (MAXITROL) 00 at 0930, Medic [...] 1219, % Routine, ophthalmic Intra-op ointment Hyaluronida 2020-0 2020- No PRN, Unive rs se, Human 11-28 Starting ity o f Recomb. 14:30: 17:19 11/28/20 [place] (HYLENEX) 00 :28 at 0930, Medica l injection Until Thu Branc h 11/28/20 at 1219, Routine, Intra-op water for Yes PRN, Univers irrigation 11-28 Starting ity o f irrigation 14:29: Thu11/28/20 [place] solution 00 at 0929, Medical Until Branch Discontinu ed, Routine, Intra-op water for 2020- No PRN, Univers irrigation 11-28 Starting ity of irrigation 14:29: 17:19 Thu11/28/20 [place] solution 00 :28 at 0929, Medical Until Thu Branch 11/28/20 at 1219, Routine, Intra-op eye block Yes PRN, Univers syringe 11 11-28 Starting ity o f mL 14:26: Thu11/28/20 [place] 00 at 0926, Medical Until Branch Discontinu ed, Intra-op eye block 2020- No PRN, Univers syringe 11 11-28 Starting ity of mL 14:26: 17:19 Thu11/28/20 [place] 00 :28 at 0926, Medical Until Thu Branch 11/28/20 at 1219, Intra-op EPINEPHrine Yes PRN, Univer s 1:1,000 (1 11-28 Starting ity o f mg/mL) 14:22: Thu11/28/20 [place] (ADRENALIN) 00 at 0922, Medi jared injection Until Branch Discontinu ed, Routine, Intra-op DUOVISC Yes PRN, Univers (DUOVISC 11-28 Starting ity of VISCO 14:22: Thu11/28/20 [place] ELASTIC) 3 00 at 0922, Medic al %-4 %(0.5 Until Branch mL) 1 % Discontinu (0.55 mL) ed, intraocular Routine, injection Intra-op dexamethaso Yes PRN, Univer s ne 11-28 Starting ity of (DECADRON 14:22: Thu11/28/20 [place] PHOSPHATE) 00 at 0922, Medic al injection Until Branch Discontinu ed, Routine, Intra-op carbachoL Yes PRN, Univers (MIOSTAT) 11-28 Starting ity of 0.01 % 14:22: Thu11/28/20 [place] intraocular 00 at 0922, Medi jared injection Until Branch Discontinu ed, Routine, Intra-op EPINEPHrine 2020- No PRN, Unive rs 1:1,000 (1 11-28 Starting ity of mg/mL) 14:22: 17:19 11/28/20 [place] (ADRENALIN) 00 :28 at 0922, Medi jared injection Until Wed Branc h 11/28/20 at 1219, Routine, Intra-op DUOVISC 2020- No PRN, Univers (DUOVISC 11-28 Starting ity of VISCO 14:22: 17:19 11/28/20 [place] ELASTIC) 3 00 :28 at 0922, Medic al %-4 %(0.5 Until Thu Branc h mL) 1 % 11/28/20 at (0.55 mL) 1219, intraocular Routine, injection Intra-op dexamethaso 2020- No PRN, Unive rs ne 11-28 Starting ity of (DECADRON 14:22: 17:19 Thu11/28/20 [place] PHOSPHATE) 00 :28 at 0922, Medic al injection Until Wed Branc h 11/28/20 at 1219, Routine, Intra-op carbachoL 2020- No PRN, Univers (MIOSTAT) 11-28 Starting ity o f 0.01 % 14:22: 17:19 Thu11/28/20 [place] intraocular 00 :28 at 0922, [...] Starting ity of soln comb1 14:21: 17:19 Thu11/28/20 [place] (BSS PLUS) 00 :28 at 0921, Medic [...] 1000mL at 42 Unive rs ringers IV 8- 08-04 mL/hr, ity of infusion 13:30: 13:36 1,000 mL, [place] 1,000 mL 00 :00 IV Medical Infusion, [place] ONCE, 1 dose, Thu11/28/20 at 0830, Routine, DSU Pre-op mydriatic 2020- No .5mL 0.5 mL, Univ ers #5 11-28 Left Eye, ity of ophthalmic 13:30: 13:36 ONCE, 1 [place] solution 00 :00 dose, Wed Medica l 0.5 mL 11/28/20 at Branch syringe 0830, Routine, DSU Pre-op lactated 2020- No 1000[facility] 08-04 mL/hr, ity of infusion 13:30: 13:36 1,000 mL, [place] 1,000 mL 00 :00 IV Medical Infusion, [place] ONCE, 1 dose, Thu11/28/20 at 0830, Routine, DSU Pre-op water for Yes PRN, Univers irrigation 11-14 Starting ity o f irrigation 13:07: Wed [place] solution 00 11/14/20 at Medic al 0807, [place] Until Discontinu ed, Routine, Intra-op water for 2020- No PRN, Univers irrigation 11-14 Starting ity of irrigation 13:07: 15:58 Wed [place] solution 00 :51 11/14/20 at Medic al 0807, [place] Until Thu11/14/20 at 1058, Routine, Intra-op neomycin-po Yes PRN, [facility] s lymyxin-dex 11-14 Starting ity of amethasone 13:06: Wed [place] (MAXITROL) 00 11/14/20 at Med ical 3.5 0806, Branch mg/g-10,000 Until unit/g-0.1 Discontinu % ed, ophthalmic Routine, ointment Intra-op DUOVISC Yes PRN, Univers (DUOVISC 11-14 Starting ity of VISCO 13:06: Wed [place] ELASTIC) 3 00 11/14/20 at Med ical %-4 %(0.5 0806, Branch mL) 1 % Until (0.55 mL) Discontinu intraocular ed, injection Routine, Intra-op dexamethaso Yes PRN, [facility] 11-[facility] Starting ity of (DECADRON 13:06: Wed [place] PHOSPHATE) 00 11/14/20 at Med ical injection 0806, Branch Until Discontinu ed, Routine, Intra-op carbachoL Yes PRN, Univers (MIOSTAT) 11-14 Starting ity of 0.01 % 13:06: Wed [place] intraocular 00 11/14/20 at Nv dical injection 0806, Branch Until Discontinu ed, Routine, Intra-op neomycin-po 2020- No PRN, [facility] lymyxin-dex 11-14 Starting ity of amethasone 13:06: 15:58 Wed [place] (MAXITROL) 00 :51 11/14/20 at Med ical 3.5 0806, Branch mg/g-10,000 Until Wed unit/g-0.1 11/14/20 at % 1058, ophthalmic Routine, ointment Intra-op DUOVISC 2020- No PRN, Univers (DUOVISC 11-14 Starting ity of VISCO 13:06: 15:58 Wed [place] ELASTIC) 3 00 :51 11/14/20 at Med ical %-4 %(0.5 0806, Branch mL) 1 % Until Wed (0.55 mL) 11/14/20 at intraocular 1058, injection Routine, Intra-op dexamethaso 2020- No PRN, [facility] Starting ity of (DECADRON 13:06: 15:58 Wed [place] PHOSPHATE) 00 :51 11/14/20 at Med ical injection 0806, Branch Until 11/14/20 at 1058, Routine, Intra-op carbachoL 2020- No PRN, Univers (MIOSTAT) 11-14 Starting ity o f 0.01 % 13:06: 15:58 Thu [place] intraocular 00 :51 11/14/20 at Nv dical injection 0806, Branch Until Thu11/14/20 at 1058, Routine, Intra-op balanced Yes PRN, Univers salt irrig 11-14 Starting ity o f soln comb1 13:05: Thu (BSS PLUS) 00 11/14/20 at [facility] ophthalmic 0805, Branch solution Until 500 mL bag Discontinu ed, Routine, Intra-op balanced 2020- No PRN, Univers salt irrig 11-14 Starting ity of soln comb1 13:05: 15:58 Thu [place] (BSS PLUS) 00 :51 11/14/20 at [facility] ophthalmic 0805, Branch solution Until Wed 500 mL bag 11/14/20 at 1058, Routine, Intra-op Hyaluronida Yes PRN, Univer s se, Human 11-14 Starting ity of Recomb. 13:02: Thu (HYLENEX) 00 11/14/20 at [facility] injection 0802, Branch Until Discontinu ed, Routine, Intra-op eye block Yes PRN, Univers syringe 11 11-14 Starting ity o f mL 13:02: Thu 00 11/14/20 at [facility] 0802, Branch Until Discontinu ed, Intra-op Hyaluronida 2020- No PRN, Unive rs se, Human 11-14 Starting ity o f Recomb. 13:02: 15:58 Thu (HYLENEX) 00 :51 11/14/20 at [facility] injection 0802, Branch Until Thu11/14/20 at 1058, Routine, Intra-op eye block 2020- No PRN, Univers syringe 11 11-14 Starting ity of mL 13:02: 15:58 Thu [place] 00 :51 11/14/20 at [facility] 0802, Branch Until Thu11/14/20 at 1058, Intra-op mydriatic 2020- No .5mL 0.5 mL, Univ ers #5 11-14 Right Eye, ity of ophthalmic 12:15: 12:18 ONCE, 1 [place] solution 00 :00 dose, Wed Medica l 0.5 mL 11/14/20 at Branch syringe 0715, Routine, DSU Pre-op lactated 2020- No 1000mL at 42 Unive rs ringers IV 11-14 07-21 mL/hr, ity of infusion 12:15: 12:18 1,000 mL, [place] 1,000 mL 00 :00 IV Medical Infusion, Branch ONCE, 1 dose, 11/14/20 at 0715, Routine, DSU Pre-op mydriatic 2020- No .5mL 0.5 mL, Univ ers #5 11-14 Right Eye, ity of ophthalmic 12:15: :18 ONCE, 1 [place] solution 00 :00 dose, Wed Medica l 0.5 mL 11/14/20 at Branch syringe 0715, Routine, DSU Pre-op lactated 2020- No 1000mL at 42 Unive rs ringers IV 11-14 07-21 mL/hr, ity of infusion 12:15: :18 1,000 mL, [place] 1,000 mL 00 :00 IV Medical Infusion, Branch ONCE, 1 dose, 11/14/20 at 0715, Routine, DSU Pre-op Brilinta 2020-0 Yes PO, BID, 0 Mem oria 6-04 Refill(s) l 21:25: [place] Brilinta 2020-0 Yes PO, BID, 0 Mem oria (ticagrelor 6-04 Refill(s) l ) 21:25: [place] 00 Brilinta 2020-0 Yes PO, BID, 0 Mem oria 6-04 Refill(s) l 21:25: [place] 00 gabapentin 0 Yes 100 mg = 1 M emoria 100 MG Oral 2-18 cap, PO, l Capsule 18:59: QAM, # 30 Mera nn 00 cap, 3 Refill(s), Pharmacy: [facility] #[id number], 167.64, cm, 06/14/20 9:23:00 RN CIRCULATING, Height, 96.818, kg, 06/14/20 9:23:00 RN CIRCULATING, Weight gabapentin 2021-0 Yes 100 mg = 1 M emoria 100 MG Oral 2-18 cap, PO, l Capsule 18:59: QAM, # 30 Mera nn 00 cap, 3 Refill(s), Pharmacy: [facility] #[id number], 167.64, cm, 06/14/20 9:23:00 RN CIRCULATING, Height, 96.818, kg, 06/14/20 9:23:00 RN CIRCULATING, Weight baclofen 10 2020-0 Yes = 1 tab, Me moria mg oral 2-18 PO, BID, # l tablet 15:35: 60 tab, 4 Kunal n 00 Refill(s), Pharmacy: [facility] #[id number], 167.64, cm, 06/14/20 9:23:00 RN CIRCULATING, Height, 96.818, kg, 06/14/20 9:23:00 RN CIRCULATING, Weight gabapentin 2020-0 Yes 300 mg = 1 M emoria 300 MG Oral 2-18 cap, PO, l Capsule 15:35: Bedtime, # Herm candace 00 30 cap, 3 Refill(s), Pharmacy: [facility] #[id number], 167.64, cm, 06/14/20 9:23:00 RN CIRCULATING, Height, 96.818, kg, 06/14/20 9:23:00 RN CIRCULATING, Weight baclofen 10 2020-0 Yes = 1 tab, Me moria mg oral 2-18 PO, BID, # l tablet 15:35: 60 tab, 4 Kunal n 00 Refill(s), Pharmacy: [facility] #[id number], 167.64, cm, 06/14/20 9:23:00 RN CIRCULATING, Height, 96.818, kg, 06/14/20 9:23:00 RN CIRCULATING, Weight gabapentin 2020-0 Yes 300 mg = 1 M emoria 300 MG Oral 2-18 cap, PO, l Capsule 15:35: Bedtime, # Herm candace 00 30 cap, 3 Refill(s), [facility]: [facility] [facility] #[id number], 167.64, cm, 06/14/20 9:23:00 RN CIRCULATING, Height, 96.818, kg, 06/14/20 9:23:00 RN CIRCULATING, Weight DULoxetine 2020-0 Yes 60 mg = 1 Me moria 60 mg oral 2-18 cap, PO, l delayed 15:34: Daily, # Kunal n release 00 30 cap, 3 capsule Refill(s), Pharmacy: [facility] ST[facility] #[id number], 167.64, cm, 06/14/20 9:23:00 RN CIRCULATING, Height, 96.818, kg, 06/14/20 9:23:00 RN CIRCULATING, Weight DULoxetine 2020-0 Yes 60 mg = 1 Me moria 60 mg oral 2-18 cap, PO, l delayed 15:34: Daily, # Kunal n release 00 30 cap, 3 capsule Refill(s), Pharmacy: [facility] STORE #[id number], 167.64, cm, 06/14/20 9:23:00 RN CIRCULATING, Height, 96.818, kg, 06/14/20 9:23:00 RN CIRCULATING, Weight isosorbide 2020-0 No 40 mg, PO, M emoria dinitrate 2-18 Daily, 0 l extended 15:33: Refill(s) [facility] release 00 Isosorbide 2020-0 Yes PO, 0 Memori a 2-18 Refill(s) l 15:33: [place] 00 isosorbide 1-0 Yes PO, 0 Memori a mononitrate 2-18 Refill(s) l 15:33: [place] 00 isosorbide 2020-0 No 40 mg, PO, M emoria dinitrate 2-18 Daily, 0 l extended 15:33: Refill(s) [facility] release 00 Isosorbide 1-0 Yes PO, 0 Memori a 2-18 Refill(s) l 15:33: [place] 00 DULoxetine 2020-0 Yes 60 mg = 1 Me moria 60 mg oral 8-21 cap, PO, l delayed 22:56: Daily, # Kunal n release 00 30 cap, 3 capsule Refill(s), [facility][id number], 167.64, cm, 10/26/19 14:53:00 CDT, Height, 92.727, kg, 10/26/19 14:53:00 CDT, Weight DULoxetine 2019-0 Yes 60 mg = 1 Me moria 60 mg oral 8-21 cap, PO, l delayed 22:56: Daily, # Kunal n release 00 30 cap, 3 capsule Refill(s), Pharmacy: [facility] STORE #[id number], 167.64, cm, 10/26/19 14:53:00 CDT, Height, 92.727, kg, 10/26/19 14:53:00 CDT, Weight DULoxetine 2020-0 No = 1 cap, Mem oria 30 mg oral 7-28 PO, Daily, l delayed 14:48: # 30 cap, Mera nn release 00 0 capsule Refill(s), Pharmacy: [facility] STORE #[id number], 167.64, cm, 10/26/19 14:53:00 CDT, Height, 92.727, kg, 10/26/19 14:53:00 CDT, Weight DULoxetine 2020-0 No = 1 cap, Mem oria 30 mg oral 7-28 PO, Daily, l delayed 14:48: # 30 cap, Mera nn release 00 0 capsule Refill(s), Pharmacy: [facility] ST[facility] #[id number], 167.64, cm, 10/26/19 14:53:00 CDT, Height, 92.727, kg, 10/26/19 14:53:00 CDT, Weight duloxetine 2020-0 Yes 30 mg = 1 Me moria 30 MG 6-03 cap, PO, l Enteric 20:56: Daily, # Kunal n Coated 00 30 cap, 1 Capsule Refill(s), [Cymbalta] Pharmacy: [facility] STORE #[id number] baclofen 10 2020-0 Yes 10 mg = 1 M emoria mg oral 6-03 tab, PO, l tablet 20:56: BID, # 60 Kunal n 00 tab, 2 Refill(s), Pharmacy: [facility] STORE #[id number] duloxetine 2020-0 Yes 30 mg = 1 Me moria 30 MG 6-03 cap, PO, l Enteric 20:56: Daily, # Kunal n Coated 00 30 cap, 1 Capsule Refill(s), [Cymbalta] Pharmacy: [facility] ST[facility] #[id number] baclofen 10 2020-0 Yes 10 mg = 1 M emoria mg oral 6-03 tab, PO, l tablet 20:56: BID, # 60 Kunal n 00 tab, 2 Refill(s), Pharmacy: [facility] STORE #[id number] lisinopril 2020-0 Yes 0 Memoria 40 mg oral 6-03 Refill(s) l tablet 19:59: [place] 00 Metformin 2020-0 No 0 Memoria hydrochlori [...] 6-03 Refill(s) l tablet 19:59: [place] 00 amLODIPine 2020-0 Yes 0 Memoria 10 mg oral 6-03 Refill(s) l tablet 19:59: [place] 00 lisinopril 2020-0 Yes 0 Memoria 40 mg oral 6-03 Refill(s) l tablet 19:59: [place] 00 Aspirin 81 2020-0 Yes 81 mg = 1 Me moria MG Enteric 5-29 tab, PO, l Coated 14:22: Daily, # [place] Tablet 00 90 tab, 3 Refill(s), other Aspirin 81 2020-0 Yes 81 mg = 1 Me moria MG Enteric 5-29 tab, PO, l Coated 14:22: Daily, # Pro Tablet 00 90 tab, 3 Refill(s), other aspirin 81 2020-0 Yes 81 mg = 1 Me moria mg tablet, 5-29 tab, PO, l enteric 14:22: Daily, # Kunal n coated 00 90 tab, 3 Refill(s), other gabapentin 2020-0 Yes 300 mg = 1 M emoria 300 MG Oral 5-29 cap, PO, l Capsule 14:21: Bedtime, # [facility] candace 00 30 cap, 3 Refill(s), Pharmacy: [facility] ST[facility] #[id number] gabapentin 2020-0 Yes 300 mg = 1 M emoria 300 MG Oral 5-29 cap, PO, l Capsule 14:21: Bedtime, # [place] candace 00 30 cap, 3 Refill(s), Pharmacy: [facility] #[id number] pravastatin 2020-0 Yes 20 mg = 1 [...] emoria 5-28 Daily, 0 l 14:50: Refill(s) metFORMIN 2020-0 Yes 500 mg, Memor ia 5-28 PO, BID, 0 l 14:50: Refill(s) glimepiride 2020-0 Yes 2 mg, PO, M emoria 5-28 Daily, 0 l 14:50: Refill(s) benzonatate 2020-0 2020- No [id number] 100mg Take 1 Univers (TESSALON 4-07 -22 capsule by [place]) 100 00:00: 04:59 mouth 3 [place] mg capsule 00 :00 (three) Medica l times Branch daily for 14 days. benzonatate 2020-0 2020- No [id number] 100mg Take 1 Univers (TESSALON 08-01- capsule by itJohn) 100 00:00: 04:59 mouth [place] capsule 00 :00 (three) Medica l times Branch daily for 14 days. benzonatate 2020-0 2020- No [id number] 100mg Take 1 Univers (TESSALON 08-01 capsule by itJohn) 100 00:00: 04:59 mouth [place] capsule 00 :00 (three) Medica l times Branch daily for 14 days. maalox:diph 2019-0 2019- No [id number] 10mL Take 10 mL Univers enhydrAMINE 08-01 by mouth ity of :lidocaine 00:00: 04:59 as needed [place] 2 % viscous 00 :00 for Oral Medi jared 1:1:1 mucositis Branch for up to 5 days. azithromyci 2020-0 2019- No [id number] 250mg Take 1 Univers n 08-01- tablet by ity of (ZITHROMAX 00:00: 04:59 mouth [place] Z-DOMINIK) 250 00 :00 daily for Medi jared mg tablet 5 days. Branch Take 500 mg day 1, then 250 mg days 2 to 5. maalox:diph 2019-0 2019- No [id number] 10mL Take 10 mL Univers enhydrAMINE 08-01 by mouth ity of :lidocaine 00:00: 04:59 as needed [place] 2 % viscous 00 :00 for Oral Medi jared 1:1:1 mucositis Branch for up to 5 days. azithromyci 2020-0 2020- No [id number] 250mg Take 1 Univers n 08-01-13 tablet by ity of (ZITHROMAX 00:00: 04:59 mouth [place] Z-DOMINIK) 250 00 :00 daily for Medi jared mg tablet 5 days. Branch Take 500 mg day 1, then 250 mg days 2 to 5. maalox:diph 2020-0 2019- No [id number] 10mL Take 10 mL Univers enhydrAMINE 08-01-13 by mouth ity of :lidocaine 00:00: 04:59 as needed [place] 2 % viscous 00 :00 for Oral Medi jared 1:1:1 mucositis Branch for up to 5 days. azithromyci 2020-0 2020- No [id number] 250mg Take 1 Univers n 08-01 tablet by ity of (ZITHROMAX 00:00: 04:59 mouth [place] Z-DOMINIK) 250 00 :00 daily for Medi jared mg tablet 5 days. Branch Take 500 mg day 1, then 250 mg days 2 to 5. amLODIPine 2020-0 Yes TK 1 T PO Un cookie 10 mg 3-23 QAM. ity of tablet 00:00: [place] [facility] amLODIPine 2020-0 Yes TK 1 T PO Un cookie 10 mg 3-23 QAM. ity of tablet 00:00: [place] [facility] amLODIPine 2020-0 Yes TK 1 T PO Un cookie 10 mg 3-23 QAM. ity of tablet 00:00: [place] [facility] amLODIPine 2020-0 Yes TK 1 T PO Un cookie 10 mg 3-23 QAM. ity of tablet 00:00: [place] [address] [facility] Branch amLODIPine 2020-0 Yes TK 1 T PO Un cookie 10 mg 3-23 QAM. ity of tablet 00:00: [place] [address] [facility] Branch amLODIPine 2020-0 Yes TK 1 T PO Un cookie 10 mg 3-23 QAM. ity of tablet 00:00: [place] [address] [facility] Branch amLODIPine 2020-0 Yes TK 1 T PO Un cookie 10 mg 3-23 QAM. ity of tablet 00:00: [place] [address] [facility] Branch amLODIPine 2020-0 Yes TK 1 T PO Un cookie 10 mg 3-23 QAM. ity of tablet 00:00: [place] [facility] amLODIPine 2020-0 Yes TK 1 T PO Un cookie 10 mg 3-23 QAM. ity of tablet 00:00: [place] [address] [facility] Branch amLODIPine 2020-0 Yes TK 1 T PO Un cookie 10 mg 3-23 QAM. ity of tablet 00:00: [place] [address] [facility] Branch amLODIPine 2020-0 Yes TK 1 T PO Un cookie 10 mg 3-23 QAM. ity of tablet 00:00: [place] [address] [facility] Branch amLODIPine 2020-0 Yes TK 1 T PO Un cookie 10 mg 3-23 QAM. ity of tablet 00:00: [place] 00 [facility] Branch amLODIPine 2020-0 Yes TK 1 T PO Un cookie 10 mg 3-23 QAM. ity of tablet 00:00: [place] 00 [facility] Branch amLODIPine 2020-0 Yes TK 1 T PO Un cookie 10 mg 3-23 QAM. ity of tablet 00:00: [place] 00 Medical Branch amLODIPine 2020-0 Yes TK 1 T PO Un cookie 10 mg 3-23 QAM. ity of tablet 00:00: [place] 00 [facility] Branch amLODIPine 2020-0 Yes TK 1 T PO Un cookie 10 mg 3-23 QAM. ity of tablet 00:00: [place] 00 [facility] Branch lisinopril 2020-0 Yes TK 1 T PO Un cookie 40 mg 3-09 QAM ity of tablet 00:00: [place] [address] [facility] Branch pravastatin 2020-0 Yes TK 1 T PO U nivers 20 mg 3-09 QHS ity of tablet 00:00: [place] [address] [facility] Branch lisinopril 2020-0 Yes TK 1 T PO Un cookie 40 mg 3-09 QAM ity of tablet 00:00: [place] [address] [facility] Branch pravastatin 2020-0 Yes TK 1 T PO U nivers 20 mg 3-09 QHS ity of tablet 00:00: [place] [address] [facility] Branch lisinopril 2020-0 Yes TK 1 T PO Un cookie 40 mg 3-09 QAM ity of tablet 00:00: [place] [address] [facility] Branch pravastatin 2020-0 Yes TK 1 T PO U nivers 20 mg 3-09 QHS ity of tablet 00:00: [place] [address] [facility] Branch lisinopril 2020-0 Yes TK 1 T PO Un cookie 40 mg 3-09 QAM ity of tablet 00:00: [place] [address] [facility] Branch pravastatin 2020-0 Yes TK 1 T PO U nivers 20 mg 3-09 QHS ity of tablet 00:00: [place] [address] [facility] Branch lisinopril 2020-0 Yes TK 1 T PO Un cookie 40 mg 3-09 QAM ity of tablet 00:00: [place] [address] [facility] Branch pravastatin 2020-0 Yes TK 1 T PO U nivers 20 mg 3-09 QHS ity of tablet 00:00: [place] [address] [facility] Branch lisinopril 2020-0 Yes TK 1 T PO Un cookie 40 mg 3-09 QAM ity of tablet 00:00: [place] [address] [facility] Branch pravastatin 2020-0 Yes TK 1 T PO U nivers 20 mg 3-09 QHS ity of tablet 00:00: [place] 00 [facility] Branch lisinopril 2020-0 Yes TK 1 T PO Un cookie 40 mg 3-09 QAM ity of tablet 00:00: [place] 00 [facility] Branch pravastatin 2020-0 Yes TK 1 T PO U nivers 20 mg 3-09 QHS ity of tablet 00:00: [place] 00 [facility] Branch lisinopril 2020-0 Yes TK 1 T PO Un cookie 40 mg 3-09 QAM ity of tablet 00:00: [place] 00 [facility] Branch pravastatin 2020-0 Yes TK 1 T PO U nivers 20 mg 3-09 QHS ity of tablet 00:00: [place] [address] [facility] Branch lisinopril 2020-0 Yes TK 1 T PO Un cookie 40 mg 3-09 QAM ity of tablet 00:00: [place] [address] [facility] Branch pravastatin 2020-0 Yes TK 1 T PO U nivers 20 mg 3-09 QHS ity of tablet 00:00: [place] [address] [facility] Branch lisinopril 2020-0 Yes TK 1 T PO Un cookie 40 mg 3-09 QAM ity of tablet 00:00: [place] [address] [facility] Branch pravastatin 2020-0 Yes TK 1 T PO U nivers 20 mg 3-09 QHS ity of tablet 00:00: [place] [address] [facility] Branch lisinopril 2020-0 Yes TK 1 T PO Un cookie 40 mg 3-09 QAM ity of tablet 00:00: [place] [address] [facility] Branch pravastatin 2020-0 Yes TK 1 T PO U nivers 20 mg 3-09 QHS ity of tablet 00:00: [place] 00 [facility] Branch lisinopril 2020-0 Yes TK 1 T PO Un cookie 40 mg 3-09 QAM ity of tablet 00:00: [place] [address] [facility] Branch pravastatin 2020-0 Yes TK 1 T PO U nivers 20 mg 3-09 QHS ity of tablet 00:00: [place] [address] [facility] Branch lisinopril 2020-0 Yes TK 1 T PO Un cookie 40 mg 3-09 QAM ity of tablet 00:00: [place] [address] [facility] Branch pravastatin 2020-0 Yes TK 1 T PO U nivers 20 mg 3-09 QHS ity of tablet 00:00: [place] [address] [facility] Branch lisinopril 2020-0 Yes TK 1 T PO Un cookie 40 mg 3-09 QAM ity of tablet 00:00: [place] 00 [facility] pravastatin 2020-0 Yes TK 1 T PO U nivers 20 mg 3-09 QHS ity of tablet 00:00: [place] [address] [facility] Branch lisinopril 2020-0 Yes TK 1 T PO Un cookie 40 mg 3-09 QAM ity of tablet 00:00: [place] [address] [facility] Branch pravastatin 2020-0 Yes TK 1 T PO U nivers 20 mg 3-09 QHS ity of tablet 00:00: [place] [address] [facility] Branch lisinopril 2020-0 Yes TK 1 T PO Un cookie 40 mg 3-09 QAM ity of tablet 00:00: [place] [address] [facility] Branch pravastatin 2020-0 Yes TK 1 T PO U nivers 20 mg 3-09 QHS ity of tablet 00:00: [place] [address] [facility] Branch metFORMIN 2020-0 Yes TK 2 TS PO Un cookie 500 mg 1-17 BID ity of tablet 00:00: [place] [address] [facility] Branch glimepiride 2020-0 Yes TK 1 T PO U nivers 2 mg tablet 1-17 QPM ity of 00:00: [place] [address] [facility] Branch metFORMIN 2020-0 Yes TK 2 TS PO Un cookie 500 mg 1-17 BID ity of tablet 00:00: [place] [address] [facility] Branch glimepiride 2020-0 Yes TK 1 T PO U nivers 2 mg tablet 1-17 QPM ity of 00:00: [place] [address] [facility] Branch metFORMIN 2020-0 Yes TK 2 TS PO Un cookie 500 mg 1-17 BID ity of tablet 00:00: [place] [address] [facility] Branch glimepiride 2020-0 Yes TK 1 T PO U nivers 2 mg tablet 1-17 QPM ity of 00:00: [place] [address] [facility] Branch metFORMIN 2020-0 Yes TK 2 TS PO Un cookie 500 mg 1-17 BID ity of tablet 00:00: [place] [address] [facility] Branch glimepiride 2020-0 Yes TK 1 T PO U nivers 2 mg tablet 1-17 QPM ity of 00:00: [place] [address] [facility] Branch metFORMIN 2020-0 Yes TK 2 TS PO Un cookie 500 mg 1-17 BID ity of tablet 00:00: [place] [address] [facility] Branch glimepiride 2020-0 Yes TK 1 T PO U nivers 2 mg tablet 1-17 QPM ity of 00:00: [place] [facility] metFORMIN 2020-0 Yes TK 2 TS PO Un cookie 500 mg 1-17 BID ity of tablet 00:00: [place] [facility] glimepiride 2020-0 Yes TK 1 T PO U nivers 2 mg tablet 1-17 QPM ity of 00:00: [place] [address] [facility] Branch metFORMIN 2020-0 Yes TK 2 TS PO Un cookie 500 mg 1-17 BID ity of tablet 00:00: [place] [facility] glimepiride 2020-0 Yes TK 1 T PO U nivers 2 mg tablet 1-17 QPM ity of 00:00: [place] [address] [facility] Branch metFORMIN 2020-0 Yes TK 2 TS PO Un cookie 500 mg 1-17 BID ity of tablet 00:00: [address] Branch glimepiride 2020-0 Yes TK 1 T PO U nivers 2 mg tablet 1-17 QPM ity of 00:00: [place] [address] [facility] Branch metFORMIN 2020-0 Yes TK 2 TS PO Un cookie 500 mg 1-17 BID ity of tablet 00:00: [place] [address] [facility] Branch glimepiride 2020-0 Yes TK 1 T PO U nivers 2 mg tablet 1-17 QPM ity of 00:00: [place] [address] [facility] [place] metFORMIN 2020-0 Yes TK 2 TS PO Un cookie 500 mg 1-17 BID ity of tablet 00:00: [address] Branch glimepiride 2020-0 Yes TK 1 T PO U nivers 2 mg tablet 1-17 QPM ity of 00:00: [place] [address] [facility] [place] metFORMIN 2020-0 Yes TK 2 TS PO Un cookie 500 mg 1-17 BID ity of tablet 00:00: [place] [facility] glimepiride 2020-0 Yes TK 1 T PO U nivers 2 mg tablet 1-17 QPM ity of 00:00: [place] [address] [facility] Branch metFORMIN 2020-0 Yes TK 2 TS PO Un cookie 500 mg 1-17 BID ity of tablet 00:00: [place] [address] [facility] Branch glimepiride 2020-0 Yes TK 1 T PO U nivers 2 mg tablet 1-17 QPM ity of 00:00: [place] [address] [facility] Branch metFORMIN 2020-0 Yes TK 2 TS PO Un cookie 500 mg 1-17 BID ity of tablet 00:00: [place] [address] [facility] Branch glimepiride 2020-0 Yes TK 1 T PO U nivers 2 mg tablet -17 QPM ity of 00:00: [address] metFORMIN 2020-0 Yes TK 2 TS PO Un cookie 500 mg 1-17 BID ity of tablet 00:00: [address] glimepiride 2020-0 Yes TK 1 T PO U nivers 2 mg tablet -17 QPM ity of 00:00: [address] metFORMIN 2020-0 Yes TK 2 TS PO Un cookie 500 mg 1-17 BID ity of tablet 00:00: [place] [facility] glimepiride 2019-0 Yes TK 1 T PO U nivers 2 mg tablet -17 QPM ity of 00:00: [address] metFORMIN 2019-0 Yes TK 2 TS PO Un cookie 500 mg -17 BID ity of tablet 00:00: [address] glimepiride 2019- Yes TK 1 T PO U nivers 2 mg tablet -17 QPM ity of 00:00: [address] metFORMIN metFORMIN No metFORMIN HCl HCl HCl Lipitor 40 Lipitor 40 No 1{table QD Lipitor 40 MG MG t} MG Plavix 75 Plavix 75 No 1{table QD Plavix 75 MG MG t} MG Lisinopril Lisinopril No Lisinopril Cymbalta 60 Cymbalta 60 No 1{capsu QD Cymbalta MG MG le} 60 MG Aspirin 81 Aspirin 81 No 1{table QD Aspirin 81 81 MG 81 MG t} 81 MG Glimepiride Glimepiride No Glimepirid e Gabapentin Gabapentin No Gabapentin Multivitami Multivitami No 1{table QD Multivitam n - n - t} in - Basaglar Basaglar No Basaglar KwikPen 100 KwikPen 100 KwikPen UNIT/ML UNIT/ML 100 UNIT/ML Isosorbide Isosorbide No 1{table BID Isosorbide Mononitrate Mononitrate t} Mononitrat 20 MG 20 MG e 20 MG amLODIPine amLODIPine No 1{table QD amLODIPine Besylate 10 Besylate 10 t} Besylate MG MG 10 MG Baclofen 10 Baclofen 10 No 1{table BID Baclofen MG MG t_as_ne 10 MG eded} metFORMIN metFORMIN No metFORMIN HCl HCl HCl Lipitor 40 Lipitor 40 No 1{table QD Lipitor 40 MG MG t} MG Plavix 75 Plavix 75 No 1{table QD Plavix 75 MG MG t} MG Lisinopril Lisinopril No Lisinopril metFORMIN metFORMIN No metFORMIN HCl HCl HCl Lisinopril Lisinopril No Lisinopril Gabapentin Gabapentin No Gabapentin Pravastatin Pravastatin No Pravastati Sodium Sodium n Sodium Glimepiride Glimepiride No Glimepirid e Protonix Protonix No Protonix Cymbalta 60 Cymbalta 60 No 1{capsu QD Cymbalta MG MG le} 60 MG Aspirin 81 Aspirin 81 No 1{table QD Aspirin 81 81 MG 81 MG t} 81 MG Glimepiride Glimepiride No Glimepirid e Gabapentin Gabapentin No Gabapentin Multivitami Multivitami No 1{table QD Multivitam n - n - t} in - Basaglar Basaglar No Basaglar KwikPen 100 KwikPen 100 KwikPen UNIT/ML UNIT/ML 100 UNIT/ML Isosorbide Isosorbide No 1{table BID Isosorbide Mononitrate Mononitrate t} Mononitrat 20 MG 20 MG e 20 MG amLODIPine amLODIPine No 1{table QD amLODIPine Besylate 10 Besylate 10 t} Besylate MG MG 10 MG Baclofen 10 Baclofen 10 No 1{table BID Baclofen MG MG t_as_ne 10 MG eded} metFORMIN metFORMIN No metFORMIN HCl HCl HCl Lipitor 40 Lipitor 40 No 1{table QD Lipitor 40 MG MG t} MG Plavix 75 Plavix 75 No 1{table QD Plavix 75 MG MG t} MG Lisinopril Lisinopril No Lisinopril Cymbalta 60 Cymbalta 60 No 1{capsu QD Cymbalta MG MG le} 60 MG Aspirin 81 Aspirin 81 No 1{table QD Aspirin 81 81 MG 81 MG t} 81 MG Glimepiride Glimepiride No Glimepirid e Gabapentin Gabapentin No Gabapentin Multivitami Multivitami No 1{table QD Multivitam n - n - t} in - Basaglar Basaglar No Basaglar KwikPen 100 KwikPen 100 KwikPen UNIT/ML UNIT/ML 100 UNIT/ML Isosorbide Isosorbide No 1{table BID Isosorbide Mononitrate Mononitrate t} Mononitrat 20 MG 20 MG e 20 MG amLODIPine amLODIPine No 1{table QD amLODIPine Besylate 10 Besylate 10 t} Besylate MG MG 10 MG Baclofen 10 Baclofen 10 No 1{table BID Baclofen MG MG t_as_ne 10 MG eded} Immunizations Ordered Filled Immunization Date Status Comments Sourc e Immunization Name Name SARS-COV-2 COVID-19 2020-09-03 Completed Unive rsity of [facility]GELO/J&J VACCINE 00:00:00 [facility] SARS-COV-2 COVID-19 2020-09-03 Completed Unive rsity of ANGELO/J&J VACCINE 00:00:00 [facility] SARS-COV-2 COVID-19 2020-09-03 Completed Unive rsity of ANGELO/J&J VACCINE 00:00:00 [facility] SARS-COV-2 COVID-19 2020-09-03 Completed Unive rsity of ANGELO/J&J VACCINE 00:00:00 [facility] SARS-COV-2 COVID-19 2020-09-03 Completed Unive rsity of ANGELO/J&J VACCINE 00:00:00 [facility] SARS-COV-2 COVID-19 2020-09-03 Completed Unive rsity of ANGELO/J&J VACCINE 00:00:00 [facility] SARS-COV-2 COVID-19 2020-09-03 Completed Unive rsity of ANGELO/J&J VACCINE 00:00:00 [facility] SARS-COV-2 COVID-19 2020-09-03 Completed Unive rsity of ANGELO/J&J VACCINE 00:00:00 [facility] SARS-COV-2 COVID-19 2020-09-03 Completed Unive rsity of ANGELO/J&J VACCINE 00:00:00 [facility] SARS-COV-2 COVID-19 2020-09-03 Completed Unive rsity of ANGELO/J&J VACCINE 00:00:00 [facility] SARS-COV-2 COVID-19 2020-09-03 Completed Unive rsity of ANGELO/J&J VACCINE 00:00:00 [facility] Vital Signs Vital Name Observation Time Observation Value Comments Source height 2021-05-01 13:00:00 66 [in_i] [facility] weight 2021-05-01 13:00:00 223.8 [lb_av] [facility] temperature 2021-05-01 13:00:00 98.3 [degF] [facility] bmi 2021-05-01 13:00:00 36.12 kg/m2 [facility] oximetry 2021-05-01 13:00:00 97 % [facility] respiratory rate 2021-05-01 13:00:00 18 /min [facility] blood pressure 2021-05-01 13:00:00 135 mm[Hg] [facility] systolic [facility] blood pressure 2021-05-01 13:00:00 75 mm[Hg] [facility] diastolic [facility] Systolic blood 2020-12-11 21:08:00 105 mm[Hg] Univer sity of [facility] Diastolic blood 2020-12-11 21:08:00 45 mm[Hg] Unive rsity of [facility] Heart rate 2020-12-11 21:08:00 79 /min [facility] Body temperature 2020-12-11 21:08:00 38.83 Krystal [facility] 2020-12-11 21:08:00 22 /min [facility] O[facility] saturation in 2020-12-11 21:08:00 98 /min [facility] Arterial blood by [facility] Pulse oximetry Branch Body height 2020-12-11 18:41:00 167.6 cm [facility] Body weight 2020-12-11 18:41:00 97.07 kg [facility] BMI 2020-12-11 18:41:00 34.54 kg/m2 [facility] Systolic blood 2020-11-28 15:00:00 128 mm[Hg] Univer sity of pressure [facility] Diastolic blood 2020-11-28 15:00:00 67 mm[Hg] Unive rsity of [facility] Heart rate 2020-11-28 15:00:00 59 /min [facility] [place] [facility] Respiratory rate 2020-11-28 15:00:00 13 /min [facility] [place] [facility] Oxygen saturation in 2020-11-28 15:00:00 100 /min University of Arterial blood by [facility] jared Pulse oximetry Branch Body temperature 2020-11-28 14:50:00 36.33 Krystal [facility] [place] [facility] Body weight 2020-11-23 17:49:00 102.1 kg [facility] [place] [facility] BMI 2020-11-23 17:49:00 36.35 kg/m2 [facility] [place] [facility] Systolic blood 2020-11-28 15:00:00 128 mm[Hg] Univer sity of pressure [place] [facility] Diastolic blood 2020-11-28 15:00:00 67 mm[Hg] Unive rsity of pressure [place] [facility] Heart rate 2020-11-28 15:00:00 59 /min [facility] [place] [facility] Respiratory rate 2020-11-28 15:00:00 13 /min [facility] [place] [facility] Oxygen saturation in 2020-11-28 15:00:00 100 /min University of Arterial blood by [facility] Pulse oximetry Branch Body temperature 2020-11-28 14:50:00 36.33 Krystal [facility] [place] [facility] Body weight 2020-11-23 17:49:00 102.1 kg [facility] [place] [facility] BMI 2020-11-23 17:49:00 36.35 kg/m2 [facility] [place] [facility] Systolic blood 2020-11-28 15:00:00 128 [...] 100 /min University of Arterial blood by [facility] Pulse oximetry Branch Body temperature 2020-11-28 14:50:00 36.33 Krystal [facility] [place] [facility] Body weight 2020-11-23 17:49:00 102.1 kg [facility] [place] [facility] BMI 2020-11-23 17:49:00 36.35 kg/m2 [facility] [place] [facility] Systolic blood 2020-11-28 15:00:00 128 mm[Hg] Univer sity of pressure [place] [facility] Diastolic blood 2020-11-28 15:00:00 67 mm[Hg] Unive rsity of pressure [place] [facility] Heart rate 2020-11-28 15:00:00 59 /min [facility] [place] [facility] Respiratory rate 2020-11-28 15:00:00 13 /min [facility] [place] [facility] Oxygen saturation in 2020-11-28 15:00:00 100 /min University of Arterial blood by [place] [facility] jared Pulse oximetry Branch Body temperature 2020-11-28 14:50:00 36.33 Krystal [facility] [place] [facility] Body weight 2020-11-23 17:49:00 102.1 kg [facility] [place] [facility] BMI 2020-11-23 17:49:00 36.35 kg/m2 [facility] [place] [facility] Systolic blood 2020-11-14 13:40:00 140 mm[Hg] Univer sity of pressure [place] [facility] Diastolic blood 2020-11-14 13:40:00 77 mm[Hg] Unive rsity of pressure [place] [facility] Heart rate 2020-11-14 13:40:00 73 /min [facility] [place] [facility] Respiratory rate 2020-11-14 13:40:00 12 /min Univ [facility] [place] [facility] Oxygen saturation in 2020-11-14 13:40:00 96 /min University of Arterial blood by [place] [facility] jared Pulse oximetry Branch Body temperature 2020-11-14 12:04:00 36.67 Krystal [facility] [place] [facility] Body height 2020-11-09 14:50:00 167.6 cm [facility] [place] [facility] Body weight 2020-11-09 14:50:00 102.1 kg [facility] [place] [facility] BMI 2020-11-09 14:50:00 36.35 kg/m2 [facility] [place] [facility] Systolic blood 2020-11-14 13:40:00 140 mm[Hg] Univer sity of pressure [place] [facility] Diastolic blood 2020-11-14 13:40:00 77 mm[Hg] Unive rsity [facility] Heart rate 2020-11-14 13:40:00 73 /min [facility] Respiratory rate 2020-11-14 13:40:00 12 /min [facility] Oxygen saturation in 2020-11-14 13:40:00 96 /min [facility] of Arterial blood by [facility] jared Pulse oximetry Branch Body temperature 2020-11-14 12:04:00 36.67 Krystal [facility] Body height 2020-11-09 14:50:00 167.6 cm [facility] Body weight 2020-11-09 14:50:00 102.1 kg [facility] BMI 2020-11-09 14:50:00 36.35 kg/m2 [facility] Systolic blood 2020-11-14 13:40:00 140 mm[Hg] Univer sity of [facility] Diastolic blood 2020-11-14 13:40:00 77 mm[Hg] Unive rsity of pressure [facility] Heart rate 2020-11-14 13:40:00 73 /min [facility] Respiratory rate 2020-11-14 13:40:00 12 /min [facility] Oxygen saturation in 2020-11-14 13:40:00 96 /min [facility] of Arterial blood by [facility] Pulse oximetry Branch Body temperature 2020-11-14 12:04:00 [...] 2020-11-14 13:40:00 12 /min [facility] Oxygen saturation in 2020-11-14 13:40:00 96 /min [facility] of Arterial blood by [facility] Pulse oximetry Branch Body temperature 2020-11-14 12:04:00 36.67 Krystal [facility] Body height 2020-11-09 14:50:00 167.6 cm [facility] Body weight 2020-11-09 14:50:00 102.1 kg [facility] BMI 2020-11-09 14:50:00 36.35 kg/m2 [facility] Systolic blood 2019-08-02 13:30:00 127 mm[Hg] [facility]iver [facility] Diastolic blood 2019-08-02 13:30:00 78 mm[Hg] Unive rsity of [facility] Heart rate 2019-08-02 13:28:00 76 /min [facility] Body temperature 2019-08-02 13:28:00 36.5 Krystal [facility] Respiratory rate 2019-08-02 13:28:00 19 /min [facility] Body height 2019-08-02 13:28:00 167.6 cm [facility] Body weight 2019-08-02 13:28:00 102.059 kg [facility] BMI 2019-08-02 13:28:00 36.32 kg/m2 [facility] Oxygen saturation in 2019-08-02 13:28:00 98 /min [facility] of Arterial blood by [facility] Pulse oximetry Branch Systolic blood 2019-08-02 13:30:00 127 mm[Hg] Univer sity of [facility] Diastolic blood 2019-08-02 13:30:00 78 mm[Hg] Unive rsity of [facility] Heart rate 2019-08-02 13:28:00 76 /min [facility] Body temperature 2019-08-02 13:28:00 36.5 Krystal [facility] Respiratory rate 2019-08-02 13:28:00 19 /min [facility] Body height 2019-08-02 13:28:00 167.6 cm [facility] Body weight 2019-08-02 13:28:00 102.059 kg [facility] BMI 2019-08-02 13:28:00 36.32 kg/m2 [facility] Oxygen saturation in 2019-08-02 13:28:00 98 /min University Arterial blood by [facility] Pulse oximetry Branch Systolic (mm Hg) 2022-03-11 20:36:00 [facility]ino [facility] [place] Diastolic (mm Hg) 2022-03-11 20:36:00 Mem o[facility] Pro Heart Rate 2022-03-11 20:36:00 [facility] [place] Height 2022-03-11 20:36:00 5 [ft_i] [facility] Weight 2022-03-11 20:36:00 [facility] [place] BMI Calculated 2022-03-11 20:36:00 [facility] [place] Systolic (mm Hg) 2021-11-07 20:21:00 Trino rial [place] Diastolic (mm Hg) 2021-11-07 20:21:00 Mem orial Pro Heart Rate 2021-11-07 20:21:00 [facility] [place] Respitory Rate 2021-11-07 20:21:00 Memori al Pro Height 2021-11-07 20:21:00 170.18 cm [facility] [place] Weight 2021-11-07 20:21:00 [facility] BMI Calculated 2021-11-07 20:21:00 Mem[facility] Pro Height 2021-09-16 19:27:00 170.18 cm [facility] Weight 2021-09-16 19:27:00 [facility] BMI Calculated 2021-09-16 19:27:00 Mem[facility] Pro Systolic (mm Hg) 2021-08-20 20:12:00 Trino rial Pro Diastolic (mm Hg) 2021-08-20 20:12:00 Mem orial Pro Heart Rate 2021-08-20 20:12:00 [facility] Respitory Rate 2021-08-20 20:12:00 [facility] [place] Height 2021-08-20 20:12:00 167.64 cm [facility] [place] Weight 2021-08-20 20:12:00 [facility] BMI Calculated 2021-08-20 20:12:00 [facility] [place] Systolic (mm Hg) 2021-06-25 19:14:00 Trino rial [place] Diastolic (mm Hg) 2021-06-25 19:14:00 Mem orial [place] Heart Rate 2021-06-25 19:14:00 [facility] Respitory Rate 2021-06-25 19:14:00 [facility] [place] Height 2021-06-25 19:14:00 162.56 cm [facility] Weight 2021-06-25 19:14:00 [facility] [place] BMI Calculated 2021-06-25 19:14:00 [facility] [place] Systolic (mm Hg) 2020-11-16 20:17:00 Trino rial [place] Diastolic (mm Hg) 2020-11-16 20:17:00 Mem orial Pro Heart Rate 2020-11-16 20:17:00 [facility] [place] Respitory Rate 2020-11-16 20:17:00 Memori al Pro Height 2020-11-16 20:17:00 167.64 cm [facility] [place] Weight 2020-11-16 20:17:00 [facility] BMI Calculated 2020-11-16 20:17:00 [facility] [place] Systolic (mm Hg) 2020-09-28 20:50:00 Trino rial Pro Diastolic (mm Hg) 2020-09-28 20:50:00 Mem orial Pro Heart Rate 2020-09-28 20:50:00 [facility] [place] Respitory Rate 2020-09-28 20:50:00 Memori al Pro Height 2020-09-28 20:50:00 167.64 cm [facility] Weight 2020-09-28 20:50:00 [facility] [place] BMI Calculated 2020-09-28 20:50:00 [facility] [place] Systolic (mm Hg) 2020-06-14 15:23:00 Trino rial [place] Diastolic (mm Hg) 2020-06-14 15:23:00 Mem orial Pro Heart Rate 2020-06-14 15:23:00 [facility] Respitory Rate 2020-06-14 15:23:00 [facility] [place] Height 2020-06-14 15:23:00 167.64 cm [facility] Weight 2020-06-14 15:23:00 [facility] [place] BMI Calculated 2020-06-14 15:23:00 Memori al Pro Systolic (mm Hg) 2019-10-26 19:53:00 Trino rial [place] Diastolic (mm Hg) 2019-10-26 19:53:00 Mem orial Pro Heart Rate 2019-10-26 19:53:00 [facility] Respitory Rate 2019-10-26 19:53:00 Memori al Pro Height 2019-10-26 19:53:00 167.64 cm [facility] [place] Weight 2019-10-26 19:53:00 [facility] BMI Calculated 2019-10-26 19:53:00 Memori al Pro Systolic (mm Hg) 2019-09-28 20:25:00 Trino rial [place] Diastolic (mm Hg) 2019-09-28 20:25:00 Mem orial Pro Heart Rate 2019-09-28 20:25:00 [facility] Respitory Rate 2019-09-28 20:25:00 Memori al Pro Height 2019-09-28 20:25:00 167.64 cm [facility] Weight 2019-09-28 20:25:00 [facility] [place] BMI Calculated 2019-09-28 20:25:00 [facility] [place] Systolic (mm Hg) 2019-09-23 13:29:00 Trino rial Pro Diastolic (mm Hg) 2019-09-23 13:29:00 Mem orial [place] Heart Rate 2019-09-23 13:29:00 [facility] Respitory Rate 2019-09-23 13:29:00 [facility] [place] Height 2019-09-23 13:29:00 167.64 cm [facility] [place] Weight 2019-09-23 13:29:00 [facility] [place] BMI Calculated 2019-09-23 13:29:00 Memori al Pro Temperature Oral (F) 2019-09-23 13:29:00 97.9 F [facility] Systolic (mm Hg) 2019-09-22 13:28:00 Trino rial Pro Diastolic (mm Hg) 2019-09-22 13:28:00 Mem orial Pro Heart Rate 2019-09-22 13:28:00 [facility] Respitory Rate 2019-09-22 13:28:00 [facility] [place] Temperature Oral (F) 2019-09-22 13:28:00 98.7 F [facility] Pro Height 2019-09-22 13:28:00 167.64 cm [facility] Weight 2019-09-22 13:28:00 [facility] Calculated 2019-09-22 13:28:00 Evelynilene al Pro Procedures Procedure Date / Time Performing Source Performed Clinician Injection of corpora 2021-10-14 [facility] cavernosa with pharmacologic 14:25:00 agent(s) (eg, papaverine, phentolamine) Cystourethroscopy (separate 2021-10-01 Trino rial [place] procedure) 22:05:00 CONSENT/REFUSAL FOR DIAGNOSIS 2020-12-11 Doctor Unassigned, [facility] AND TREATMENT 05:01:00 [place] [facility] PHACOEMULSIFICATION OF 2020-11-28 Tre Louise [facility] CATARACT WITH INTRAOCULAR 14:15:00 Medica l Branch LENS IMPLANT POCT GLUCOSE(AGE >30DAYS) 2020-11-28 Alka Heller [facility] 13:30:00 Medical Branch POCT GLUCOSE(AGE >30DAYS) 2020-11-28 Alka Heller [facility] 13:30:00 Medical Branch COVID-19 (ID NOW RAPID 2020-11-28 Tre Louise [facility] TESTING) 12:51:00 Medical Branch CONSENT/REFUSAL FOR DIAGNOSIS 2020-11-26 Doctor Unassigned, [facility] AND TREATMENT 20:44:56 [facility] CONSENT/REFUSAL FOR DIAGNOSIS 2020-11-26 Doctor Unassigned, [facility] AND TREATMENT 20:44:56 [facility] ASSIGNMENT OF BENEFITS 2020-11-26 Doctor Unassigned, [facility] 20:44:20 [facility] ASSIGNMENT OF BENEFITS 2020-11-26 Doctor Unassigned, [facility] 20:44:20 [facility] PHACOEMULSIFICATION OF 2020-11-14 Tre Louise [facility] CATARACT WITH INTRAOCULAR 12:51:00 Medica l Branch LENS IMPLANT POCT GLUCOSE(AGE >30DAYS) 2020-11-[address] [facility] 12:16:00 Medical Branch POCT GLUCOSE(AGE >30DAYS) 2020-11-[address] [facility] 12:16:00 Medical [place] VACCINATIONS - CONSENTS, 2020-11-14 Doctor Unassigned, [facility] ELIGIBILITY, HISTORY 05:01:00 [place] [facility] CBC WITH DIFF 2020-11-05 Tre Louise [facility] 16:24:00 Medical [place] ASSIGNMENT OF BENEFITS 2020-11-05 Doctor Unassigned, [facility] 16:14:55 [facility] POCT GRP A STREP (MOLECULAR) 2019-08-02 Silvia Long [facility] 13:46:00 [facility] Stent placement [facility] Hand arthroplasty [facility] [place] hernia repair [facility] Cholecystectomy [facility] Encounters Start End Encounter Admission Attending Care Care Encounter Source Date/Time Date/Time Type Type Clinicians Facility Department ID 2021-05-22 Outpatient Kattegummul [facility] [id number] Common 14:31:19 [place] padron [facility] 2021-05-22 Outpatient Kattegummul [facility] [id number] Common 14:30:11 [place] padron [facility] 2021-02-25 Outpatient Zahraa LOUISE [facility] OPH [id number] Univers 12:04:47 [facility] 2021-02-25 Outpatient Zahraa LOUISE [facility] OPH [id number] Univers 08:31:28 [facility] 2022-09-09 2022-09-09 Outpatient MHIE MHIE [id number] Memoria 10:15:00 10:15:00 31 rafaela Mast 2022-03-11 2022-03-12 Outpatient MHIE MNA [id number] Memoria 21:30:00 05:59:59 Neurology 25 rafaeal Mast 2022-03-11 2022-03-11 Outpatient YVES RojasMISCHSANAM [id number] 15:30:00 23:59:59 Brett Hardeep Thien 2022-03-11 2022-03-11 Outpatient MHIE MHIE [id number] Memoria 15:30:00 15:30:00 25 rafaela Mast 2022-03-11 2022-03-11 Outpatient MHIE MHIE [id number] Memoria 15:30:00 15:30:00 25 l Pro 2022-03-03 2022-03-03 [place] [id number] Memoria 20:00:00 20:00:00 Pre-Reg r Urology 29 l Associates Mera nn Time Share 2022-03-03 2022-03-03 Outpatient BRAYDON BRAYDON [id number] Memoria 14:00:00 14:00:00 29 l Pro 2022-03-03 2022-03-03 Outpatient Staller, MG [place] [id number] 14:00:00 14:00:00 Carla L 29 2022-02-26 2022-02-26 [place] [id number] Memoria 14:50:00 14:50:00 Pre-Reg r Urology 27 l Associates Mera nn Time Share 2022-02-26 2022-02-26 [id number] 09:50:00 09:50:00 Carla L 27 2022-02-24 2022-02-24 [place] [id number] Memoria 14:00:00 14:00:00 Pre-Reg r Urology 30 l Associates Mera nn Time Share 2022-02-24 2022-02-24 Outpatient BRAYDON BRAYDON [id number] Memoria 09:00:00 09:00:00 30 l Pro 2022-02-24 2022-02-24 Outpatient VISIT, MG MG [id number] 09:00:00 09:00:00 NURSE UATS 30 2022-02-17 2022-02-17 [place] [id number] Memoria 20:00:00 20:00:00 Pre-Reg r Urology 28 l Associates Mera nn Time Share 2022-02-17 2022-02-17 Outpatient ALYSONRAYRAY BRYSON [id number] Memoria 15:00:00 15:00:00 28 l Pro 2022-02-17 2022-02-17 Outpatient VISIT, MG MG [id number] 15:00:00 15:00:00 NURSE UATS 28 2022-02-17 2022-02-17 Outpatient MHIE RAYRAY [id number] Memoria 13:35:00 13:35:00 27 l Pro 2022-02-14 2022-02-14 Ambulatory nullFlavo [facility] [id number] Memoria 14:00:00 14:00:00 Pre-Reg r Urology 26 l Associates Mera nn Time Share 2022-02-14 2022-02-14 Outpatient VISIT, [facility] [id number] 09:00:00 09:00:00 NURSE UATS 26 2022-02-07 2022-02-07 Outpatient BRAYDON RAYRAY [id number] Memoria 10:00:00 10:00:00 26 l Pro 2021-11-07 2021-11-08 Outpatient nullFlavo MNA [id number] Memoria 20:30:00 04:59:59 r Neurology 24 l Ayush Pro 2021-11-07 2021-11-08 Outpatient nullFlavo MNA [id number] Memoria 20:30:00 04:59:59 r Neurology 24 l Ayush Pro 2021-11-07 2021-11-07 Outpatient YVES Rojas [id number] 15:30:00 23:59:59 Brett 24 Thien 2021-11-07 2021-11-07 Outpatient MHIE IE [id number] Memoria 15:30:00 15:30:00 24 rafaela Pro 2021-10-14 2021-10-15 [place] [id number] Memoria 14:00:00 04:59:59 r Urology 23 l Associates Mera nn Time Share 2021-10-14 2021-10-15 [place] [id number] Memoria 14:00:00 04:59:59 r Urology 23 l Associates Mera nn Time Share 2021-10-14 2021-10-14 Outpatient Miladyser, [facility] [id number] 09:00:00 23:59:59 Carla L 23 2021-10-14 2021-10-14 Outpatient ALYSONIE IE [id number] Memoria 09:00:00 09:00:00 23 rafaela Mast 2021-10-01 2021-10-02 Outpatient nullFlavo [facility] [id number] Memoria 20:30:00 04:59:59 r Urology 22 l Associates Mera nn Time Share 2021-10-01 2021-10-02 [place] [id number] Memoria 20:30:00 04:59:59 r Urology 22 l Associates Mera nn Time Share 2021-10-01 2021-10-01 Outpatient Abhijeet, [facility] [id number] 15:30:00 23:59:59 Carla L 22 2021-10-01 2021-10-01 [place] [id number] Memoria 20:30:00 20:30:00 Pre-Reg r Urology 21 l Associates Mera nn Time Share 2021-10-01 2021-10-01 Ambulatory nullFlavo [facility] [id number] Memoria 20:30:00 20:30:00 Pre-Reg r Urology 21 l Willie Tavareza nn Time Share 2021-10-01 2021-10-01 Outpatient MHIE BRAYDON [id number] Memoria 15:30:00 15:30:00 22 l Pro 2021-10-01 2021-10-01 Outpatient IE RAYRAY [id number] Memoria 15:30:00 15:30:00 21 l Pro 2021-10-01 2021-10-01 Outpatient Abhijeet, [facility] [id number] 15:30:00 15:30:00 Carla L 21 2021-09-26 2021-09-26 Ambulatory nullFlavo KSA [id number] Memoria 13:15:00 13:15:00 Pre-Reg r Neurology 19 l Ayush Tavarezann 2021-09-26 2021-09-26 Ambulatory nullFlavo MNA [id number] Memoria 13:15:00 13:15:00 Pre-Reg r Neurology 19 l Ayush Tavarezann 2021-09-26 2021-09-26 Outpatient IE IE [id number] Memoria 08:15:00 08:15:00 19 l [place] 2021-09-26 2021-09-26 [id number] 08:15:00 08:15:00 Brett 19 Thien 2021-09-16 2021-09-17 Outpatient nullFlavo [facility] [id number] Memoria 19:40:00 04:59:[address] [facility] 2021-09-16 2021-09-17 Outpatient nullFlavo [facility] Multi [id number] Memoria 19:40:00 04:59:[address] [facility] 2021-09-16 2021-09-16 [facility] [id number] 14:40:00 23:59:59 Carla L Beena 2021-09-16 2021-09-16 Outpatient MHIE MHIE [id number] Memoria 14:40:00 14:40:00 20 l [place] 2021-08-27 2021-08-27 Ambulatory nullFlavo MNA [id number] Memoria 20:00:00 20:00:00 Pre-Reg r Neurology 15 l Ayush [place] 2021-08-27 2021-08-27 Ambulatory nullFlavo MNA [id number] Memoria 20:00:00 20:00:00 Pre-Reg r Neurology 15 l Ayush [place] 2021-08-27 2021-08-27 Outpatient MHIE IE [id number] Memoria 15:00:00 15:00:00 15 l [place] 2021-08-27 2021-08-27 Outpatient ALYSON [facility]SCH[facility] [id number] 15:00:00 15:00:00 Brett 15 Thien 2021-08-20 2021-08-21 Outpatient nullFlavo MNA [id number] Memoria 20:00:00 04:59:59 r Neurology 18 l Ayush Tavarezann 2021-08-20 2021-08-21 Outpatient nullFlavo MNA [id number] Memoria 20:00:00 04:59:59 r Neurology 18 l Ayush Tavarezann 2021-08-20 2021-08-20 Outpatient ALYSON RojasMISCHER MISCHER [id number] 15:00:00 23:59:59 Brett 18 Thien 2021-08-20 2021-08-20 Outpatient MHIE MHIE [id number] Memoria 15:00:00 15:00:00 18 l Pro 2021-08-07 2021-08-07 Ambulatory nullFlavo MNA [id number] Memoria 14:15:00 14:15:00 Pre-Reg r Neurology 17 l Ayush Mast 2021-08-07 2021-08-07 Ambulatory nullFlavo MNA [id number] Memoria 14:15:00 14:15:00 Pre-Reg r Neurology 17 l Ayush Mast 2021-08-07 2021-08-07 Outpatient MHIE IE [id number] Memoria 09:15:00 09:15:00 17 l Pro 2021-08-07 2021-08-07 [id number] 09:15:00 09:15:00 Brett 17 Thien 2021-07-02 2021-07-02 (TEL) STLMLC STLMLC [id number] Co mmon 00:00:00 00:00:00 [facility] 2021-06-25 2021-06-26 Outpatient nullFlavo MNA [id number] Memoria 19:30:00 05:59:59 r Neurology 16 l Ayush Tavarezann 2021-06-25 2021-06-26 Outpatient nullFlavo MNA [id number] Memoria 19:30:00 05:59:59 r Neurology 16 l Ayush Mast 2021-06-25 2021-06-25 Out[id number] 13:30:00 23:59:59 Brett 16 Thien 2021-06-25 2021-06-25 Outpatient MHIE IE [id number] Memoria 13:30:00 13:30:00 16 rafaela Mast 2021-05-14 2021-05-14 (TEL) STLMLC STLMLC [id number] Co mmon 00:00:00 00:00:00 [facility] 2021-05-01 2021-05-01 OFFICE STLMLC STLMLC [id number] Co mmon 00:00:00 00:00:00 VISIT NEW Spir it PT LEVEL 4 - [facility] 2021-03-25 2021-03-25 (TEL) STLMLC STLMLC [id number] Co mmon 00:00:00 00:00:00 [facility] 2021-02-27 2021-02-28 Outpatient nullFlavo MNA [id number] Memoria 14:00:00 04:59:59 r Neurology 14 l Ayush Mast 2021-02-27 2021-02-28 Outpatient nullFlavo MNA [id number] Memoria 14:00:00 04:59:59 r Neurology 14 l Ayush Mast 2021-02-27 2021-02-27 Outpatient YVES Rojsa MISCHER [id number] 09:00:00 23:59:59 Brett 14 Thien 2021-02-27 2021-02-27 Outpatient MHIE MHIE [id number] Memoria 09:00:00 09:00:00 14 rafaela Mast 2020-12-28 2020-12-28 Ambulatory nullFlavo MNA [id number] Memoria 20:45:00 20:45:00 Pre-Reg r Neurology 13 l [place] Tav[place] 2020-12-28 2020-12-28 Ambulatory nullFlavo MNA [id number] Memoria 20:45:00 20:45:00 Pre-Reg r Neurology 13 l [place] Pro 2020-12-28 2020-12-28 Outpatient MHIE MHIE [id number] Memoria 15:45:00 15:45:00 13 rafaela Pro 2020-12-28 2020-12-28 Outpatient YVES Rojas MISCHER [id number] 15:45:00 15:45:00 Brett 13 Thien 2020-12-11 2020-12-11 Outpatient [facility]raa [facility] [id number] Univers 13:30:00 13:30:00 SRINIVAS marion [facility] 2020-12-11 2020-12-11 Nurse Therapy, Adc Covid Infusion [facility] 1.2.840.114 [id number] Univers 11:28:16 12:28:16 Visit Srinivas Sahni [id number] doni [facility] 4[place]2.7.2.[place] [id number] [facility] 053 Branch 2020-12-11 2020-12-11 Orders Doctor JOSE M 1.2.840.114 [id number] Univers 00:00:00 00:00:00 Only Unassigned, KIMBERLY [id number] ity of [place] [facility] 4.2.7.2.686 [place] as [phone] [facility] 009 Branch 2020-11-28 2020-11-28 Surgery [facility] 1.2.840.114 [id number] 09:50:00 10:29:00 [place] [id number] [place] 4.2.7.2.686 Surgical [id number] [place] 020 2020-11-28 2020-11-28 Surgery [facility] 1.2.840.114 [id number] Univers 09:50:00 10:29:00 Tre A [place] [id number] [place] 4[place].2.[place] [id number] [facility] 020 [place] 2020-11-28 2020-11-28 [facility] [id number] 08:00:00 10:15:00 Encounter Tre A [place] [id number] [place] 4.2.7.2.686 Surgical [id number] [place] [address] 2020-11-28 2020-11-28 [facility] [id number] [facility] 08:00:00 10:15:00 Encounter Tre A [place] 350.1.13.10 ity [place] 4[place].2.[place] [id number] [facility] 071 [place] 2020-11-28 2020-11-28 Laboratory Only, [facility] 1.2.840.114 [id number] 07:33:14 07:48:14 Only Test [place] [id number] [place] 4.2.7.2.686 [place] [id number] 2020-11-28 2020-11-28 Laboratory Only, Adc Test [facility] 1.2.840. 114 [id number] Univers 07:33:14 07:48:14 Only Tre [place] 350.1.13.1 0 ity of [place] 4.2.7.2.686 [facility] [id number] [address] 2020-11-27 2020-11-27 [facility] [id number] Univers 14:15:00 14:15:00 TRE itmakayla [facility] 2020-11-21 2020-11-21 Laboratory Lab, [facility] 1.2.840.114 [id number] 14:03:01 14:23:01 Only Fam Pob I Health 350.1.13.10 [place] 4.2.7.2.686 Professio [id number] [place] [address] [address] 2020-11-21 2020-11-21 Laboratory Lab, [facility] Fam Pob I [facility] 1.2. 840.114 [id number] Univers 14:03:01 14:23:01 Only Svetlana Gregory Barbra 350.1.13.10 ity [facility] 4.2.7.2.686 [facility] [id number] Nv dical [address] Office [address] 2020-11-21 2020-11-21 Outpatient [facility] [id number] Univers 14:20:00 14:20:00 SVETLANA makayla [facility] 2020-11-21 2020-11-21 Letter Doctor SALGUERO 1.2.840.114 [id number] 00:00:00 00:00:00 (Out) Unassigned, KIMBERLY 350.1.13.10 [place] [facility] 4.2.7.2.686 [id number] 2020-11-21 2020-11-21 Letter Doctor JOSE M 1.2.840.114 [id number] 00:00:00 00:00:00 (Out) Unassigned, KIMBERLY 350.1.13.10 [place] [facility] 4.2.7.2.686 [id number] 2020-11-21 2020-11-21 Letter Doctor JOSE M 1.2.840.114 [id number] Univers 00:00:00 00:00:00 (Out) Unassigned, KIMBERLY 350.1.13.10 ity of [place] [facility] 4.2.7.2.686 [place] [id number] [address] 2020-11-21 2020-11-21 Letter Doctor JOSE M 1.2.840.114 [id number] Univers 00:00:00 00:00:00 (Out) Unassigned, KIMBERLY 350.1.13.10 ity of [place] [facility] 4.2.7.2.686 [place] as [phone] [address] 2020-11-16 2020-11-17 Outpatient nullFlavo MNA [id number] Memoria 21:00:00 04:59:59 [facility] 2020-11-16 2020-11-17 Outpatient nullFlavo MNA [id number] Memoria 21:00:00 04:59:59 r Neurology 12 l [place] 2020-11-16 2020-11-16 Outpatient ALYSON RojasMISCHSANAM [facility] [id number] 16:00:00 23:59:59 Brett 12 Thien 2020-11-16 2020-11-16 Outpatient MHIE MHIE [id number] Memoria 16:00:00 16:00:00 12 rafaela [place] 2020-11-14 2020-11-14 [facility] [id number] 06:55:00 08:58:00 Encounter Tre L[place] 350.1.13.10 [place] 4.2.7.2.686 Surgical [id number] [place] [address] 2020-11-14 2020-11-14 [facility] [id number] [facility] 06:55:00 08:58:00 Encounter Tre Linder 350.1.13.10 [place] 4[place]2.[place] [id number] [address] 2020-11-14 2020-11-14 Surgery [facility] 1.2.840.114 [id number] 08:00:00 08:42:00 [place] 350.1.13.10 [place] 4.2.7.2.686 Surgical [id number] [place] [address] 2020-11-14 2020-11-14 [facility] 1.2.840.114 [id number] [facility] 08:00:00 08:42:00 Tre Linder 350.1.13.10 [place] [id number] [facility] [address] [place] 2020-11-14 2020-11-14 Orders Doctor SALGUERO 1.2.840.114 [id number] 00:00:00 00:00:00 Only Unassigned, KIMBERLY 350.1.13.10 [facility] 4.2.7.2.686 [id number] 2020-11-14 2020-11-14 Orders Doctor JOSE M 1.2.840.114 [id number] Univers 00:00:00 00:00:00 Only Unassigned, KIMBERLY 350.1.13.10 ity of [facility] 4.2.7.2.686 [place] [id number] [address] 2020-11-05 2020-11-05 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, General Leonard [facility] [id number] 11:14:30 11:29:30 Visit Lab Main Niyah 350.1.13.10 [place] 4.2.7.2.686 Professio [phone] [address] 2020-11-05 2020-11-05 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, [facility] Lab Main [facility] 1.2.8 40.114 [id number] Univers 11:14:30 11:29:30 Visit Tre Louise 350.1.13.1 0 ity of [place] Profess[place] [phone] Nv dical [address] 2020-11-05 2020-11-05 Outpatient R DANI [facility] [id number] Univers 11:15:00 11:15:00 TRE marion [facility] 2020-11-05 2020-11-05 Orders Doctor SALGUERO 1.2.840.114 [id number] 00:00:00 00:00:00 Only Unassigned, KIMBERLY 350.1.13.10 [facility] 4.2.7.2.686 [id number] 009 2020-11-05 2020-11-05 Orders Doctor JOSE M 1.2.840.114 [id number] Univers 00:00:00 00:00:00 Only Unassigned, KIMBERLY 350.1.13.10 ity of [place]2.7.2.686 [place] as [phone] [facility] [address] 2020-09-28 2020-09-29 Outpatient nullFlavo MNA [id number] Memoria 21:00:00 04:59:59 r Neurology 09 rafaela Tavarezann 2020-09-28 2020-09-29 Outpatient nullFlavo MNA [id number] Memoria 21:00:00 04:59:59 r Neurology 09 rafaela Tavarezann 2020-09-28 2020-09-28 Outpatient YVES Rojas MISCHSANAM [id number] 16:00:00 23:59:59 Brett 09 Thien 2020-09-28 2020-09-28 Outpatient MHIE IE [id number] Memoria 16:00:00 16:00:00 09 rafaela Mast 2020-06-28 2020-06-28 Ambulatory nullFlavo MNA [id number] Memoria 14:15:00 14:15:00 Pre-Reg r Neurology 11 rafaela [place] Pro 2020-06-28 2020-06-28 Ambulatory nullFlavo MNA [id number] Memoria 14:15:00 14:15:00 Pre-Reg r Neurology 10 l [place] Pro 2020-06-28 2020-06-28 Ambulatory nullFlavo MNA [id number] Memoria 14:15:00 14:15:00 Pre-Reg r Neurology 10 rafaela Tavarezann 2020-06-28 2020-06-28 Ambulatory nullFlavo MNA [id number] Memoria 14:15:00 14:15:00 Pre-Reg r Neurology 11 rafaela [place] Pro 2020-06-28 2020-06-28 Outpatient MHIE IE [id number] Memoria 08:15:00 08:15:00 11 rafaela Pro 2020-06-28 2020-06-28 Outpatient MHIE IE [id number] Memoria 08:15:00 08:15:00 10 l Pro 2020-06-28 2020-06-28 Out[facility] [id number] 08:15:00 08:15:00 Brett 10 Thien 2020-06-28 2020-06-28 [facility] [id number] 08:15:00 08:15:00 Brett 11 Thien 2020-06-14 2020-06-15 Outpatient nullFlavo MNA [id number] Memoria 15:00:00 05:59:59 r Neurology 08 l Ayush Mast 2020-06-14 2020-06-15 Outpatient nullFlavo MNA [id number] Memoria 15:00:00 05:59:59 r Neurology 08 l Ayush Mast 2020-06-14 2020-06-14 [facility] [id number] 09:00:00 23:59:59 Brett 08 Thien 2020-06-14 2020-06-14 Outpatient IE RAYRAY [id number] Memoria 09:00:00 09:00:00 08 rafaela Mast 2020-05-04 2020-05-04 Ambulatory nullFlavo MNA [id number] Memoria 15:15:00 15:15:00 Pre-Reg r Neurology 07 l Ayush Tavarezann 2020-05-04 2020-05-04 Ambulatory nullFlavo MNA [id number] Memoria 15:15:00 15:15:00 Pre-Reg r Neurology 07 l Ayush Tavarezann 2020-05-04 2020-05-04 Outpatient IE RAYRAY [id number] Memoria 09:15:00 09:15:00 07 rafaela Pro 2020-05-04 2020-05-04 Outpatient [facility] [id number] 09:15:00 09:15:00 Brett 07 Thien 2020-03-16 2020-03-16 Ambulatory nullFlavo MNA [id number] Memoria 21:45:00 21:45:00 Pre-Reg r Neurology 06 l Ayush Pro 2020-03-16 2020-03-16 Ambulatory nullFlavo MNA [id number] Memoria 21:45:00 21:45:00 Pre-Reg r Neurology 06 l Ayush [place] 2020-03-16 2020-03-16 Outpatient IE IE [id number] Memoria 15:45:00 15:45:00 06 rafaela [place] 2020-03-16 2020-03-16 [facility] [id number] 15:45:00 15:45:00 Brett 06 Thien 2019-12-21 2019-12-21 Ambulatory nullFlavo MNA [id number] Memoria 18:30:00 18:30:00 Pre-Reg r Neurology 04 l Ayush [place] 2019-12-21 2019-12-21 Ambulatory nullFlavo MNA [id number] Memoria 18:30:00 18:30:00 Pre-Reg r Neurology 04 l Ayush [place] 2019-12-21 2019-12-21 Outpatient IE IE [id number] Memoria 13:30:00 13:30:00 04 rafaela [place] 2019-12-21 2019-12-21 [facility] [id number] 13:30:00 13:30:00 Brett 04 Thien 2019-10-26 2019-10-27 Outpatient nullFlavo MNA [id number] Memoria 19:45:00 04:59:59 r Neurology 05 l Ayush Mast 2019-10-26 2019-10-27 Outpatient nullFlavo MNA [id number] Memoria 19:45:00 04:59:59 r Neurology 05 l Ayush Pro 2019-10-26 2019-10-26 [facility] [id number] 14:45:00 23:59:59 Brett 05 Thien 2019-10-26 2019-10-26 Ambulatory nullFlavo MNA [id number] Memoria 19:45:00 19:45:00 Pre-Reg r Neurology 03 l Ayush Mast 2019-10-26 2019-10-26 Ambulatory nullFlavo MNA [id number] Memoria 19:45:00 19:45:00 Pre-Reg r Neurology 03 l Ayush [place] 2019-10-26 2019-10-26 Outpatient MHIE IE [id number] Memoria 14:45:00 14:45:00 05 rafaela Pro 2019-10-26 2019-10-26 [facility] [id number] 14:45:00 14:45:00 Brett 03 Thien 2019-10-26 2019-10-26 Outpatient MHIE IE [id number] Memoria 09:45:00 09:45:00 03 l [place] 2019-09-28 2019-09-29 Outpatient nullFlavo MNA [id number] Memoria 20:15:00 04:59:59 r Neurology 02 l [place] Pro 2019-09-28 2019-09-29 Outpatient nullFlavo MNA [id number] Memoria 20:15:00 04:59:59 r Neurology 02 l [place] Pro 2019-09-28 2019-09-28 [facility] [id number] 15:15:00 23:59:59 Brett 02 Thien 2019-09-28 2019-09-28 Outpatient MHIE IE [id number] Memoria 15:15:00 15:15:00 02 l [place] 2019-09-23 2019-09-24 Outpatient nullFlavo MNA [id number] Memoria 13:15:00 04:59:59 r Neurology 01 l [place] Pro 2019-09-23 2019-09-24 Outpatient nullFlavo MNA [id number] Memoria 13:15:00 04:59:59 r Neurology 01 l [place] 2019-09-23 2019-09-23 Outpatient KENYATTA [facility] [id number] 08:15:00 23:59:59 Brett Thien 2019-09-23 2019-09-23 Outpatient MHIE IE [id number] Memoria 08:15:00 08:15:00 01 l [place] 2019-09-22 2019-09-23 Outpatient nullFlavo MNA [id number] Memoria 15:00:00 04:59:59 r Neurology 00 l [place] 2019-09-22 2019-09-23 Outpatient nullFlavo MNA [id number] Memoria 15:00:00 04:59:59 r Neurology 00 l [place] Pro 2019-09-22 2019-09-22 Outpatient Crystal, [facility] [id number] 10:00:00 23:59:59 Brett Niyah Neumann 2019-09-22 2019-09-22 Outpatient MHIE IE [id number] [facility] 10:00:00 10:00:00 00 rafaela Mast 2019-08-04 2019-08-04 Telephone JOSE M Benitez 1.2.840.114 [id number] 00:00:00 00:00:00 Amita M KIMBERLY 350.1.13.10 [facility] 4.2.7.2.686 [id number] 2019-08-04 2019-08-04 Telephone JOSE M Long [id number] 00:00:00 00:00:00 Silvia POLOY 350.1.13.10 [facility] 4.2.7.2.686 [id number] 2019-08-04 2019-08-04 Telephone JOSE M Benitez 1.2.840.114 [id number] [facility] 00:00:00 00:00:00 Amita Ge KIMBERLY 350.1.13.10 it y of [facility] 4.2.7.2.686 [place] as [phone] [address] 2019-08-04 2019-08-04 Telephone JOSE M Long [id number] [facility] 00:00:00 00:00:00 Silvia HARRIS 350.1.13.10 it y [facility] 4.2.7.2.686 [place] as [phone] [address] 2019-08-02 2019-08-02 Outpatient Zahraa WOOD, [facility] [id number] [facility] 08:40:00 08:40:00 BARBARA marion of [facility] 2019-08-02 2019-08-02 Urgent Pob1, Acute [facility] 1.2.840.114 [id number] 08:02:14 08:22:14 [facility] 350.1.13.10 [place] 4.2.7.2.686 Professio [id number] [address]al [address] 2019-08-02 2019-08-02 Urgent Pob1, Acute Care Clinic [facility] 1. 2.840.114 [id number] [facility] 08:02:14 08:22:14 [facility] Nina [facility] 350.1.13.10 itSheila 4.2.7.2.686 [place] [phone] [facility] [address] [place] Results Test Description Test Time Test Comments Results Result Comments Source POCT Glucose 2020-11-28 13:30:00 Test Item Value Reference Range Interpretation Comme nts POCT Glu (age>30days) (test code = 3342) 101 mg/dL 70-110 [facility] [id number] 13:30:00 Test Item Value Reference Range Interpretation Comments POCT Glu (age>30days) (test code = 101 mg/dL 70-110 3342) [facility]ID [facility]2020-11-28 13:07:35 Test Item Value Reference Range Interpretation Comments SARS-CoV-2 Rapid ID NOW Not Detected Not Detected (test code = 58592-0) CHRISTINE (test code = CHRISTINE) ID NOW COVID-19 Assay is an isothermal nucleic acid amplification test intended for the qualitative detection of nucleic acid from SARS-CoV-2 viral RNA in nasopharyngeal (MIRROR FRAMER) specimens. It is used under Emergency Use [...] indicated. Lab Interpretation Normal (test code = 52386-0) [facility] [id number] 12:16:00 Test Item Value Reference Range Interpretation Comments POCT Glu (age>30days) (test code = 1226 mg/dL 70-110 A 3342) Lab Interpretation (test code = Abnormal 15049-1) [facility] [id number] 12:16:00 Test Item Value Reference Range Interpretation Comments POCT Glu (age>30days) (test code = 1226 mg/dL 70-110 A 3342) Lab Interpretation (test code = Abnormal 67523-9) [facility] WITH [id number] 16:31:33 Test Item Value Reference Range Interpretation Comments WBC (test code = See_Comment [Automated 0990-2) message] The sy stem which generated this [...] RDW-SD (test code = 43.9 fL 38.5-51.6 02731-0) RDW-CV (test code = 13.7 % 12.1-15.4 788-0) PLT (test code = See_Comment [Automated 777-3) message] The sy stem which generated this result transmitted reference range : 150 - 328 10*3/ ?L. The reference r alexandra was not used to interpret this result as normal/abnormal . MPV (test code = 9.7 fL 9.8-13.0 L 90682-7) NRBC/100 WBC (test See_Comment [Automat ed code = 8239043193) message] The system which generated this result transmitted reference range : 0.0 - 10.0 /100 WBCs. The refer ence range was not u sed to interpret th is result as normal/abnormal . NRBC x10^3 (test code <0.01 See_Comment [Auto mated = 3749000347) message] The s ystem which generated this result transmitted reference range : 10*3/?L. The reference range was not used to interpret this result as normal/abnormal . GRAN MAT (NEUT) % 66.1 % (test code = 770-8) IMM GRAN % (test code 0.50 % = 6836321319) LYMPH % (test code = 21.0 % 736-9) MONO % (test code = 8.9 % 5905-5) EOS % (test code = 3.0 % 713-8) BASO % (test code = 0.5 % 706-2) GRAN MAT x10^3(ANC) 4.99 10*3/uL 1.99-6.95 (test code = 7745532972) IMM GRAN x10^3 (test 0.04 10*3/uL 0.00-0.06 code = 9702588855) LYMPH x10^3 (test code 1.59 10*3/uL 1.09-3.23 = 731-0) MONO x10^3 (test code 0.67 10*3/uL 0.36-1.02 = 742-7) EOS x10^3 (test code = 0.23 10*3/uL 0.06-0.53 711-2) BASO x10^3 (test code 0.04 10*3/uL 0.01-0.09 = 704-7) Lab Interpretation Abnormal (test code = 10596-1) [facility])2019-08-02 13:46:00 Test Item Value Reference Range Interpretation Comments POCT GP A STREP (test code = Negative Negative - Negative 13393-9) Lab Interpretation (test code = Normal 87243-0) [facility]
[2022-06-09] MEDS ORDERED: KETOROLAC 30 MG/ML INJ ONE (13:09)
--- NOTE | 2022-06-09 13:25 | RAD REPORT ---
EXAM DESCRIPTION: Eric Single View06/09/2022 12:55 pm CLINICAL HISTORY: cough COMPARISON: 2021 FINDINGS: The lungs appear clear of acute infiltrate. The heart is normal size IMPRESSION: No acute abnormalities displayed
[2022-06-09 13:29] LABS: Absolute Lymphocytes (CBC) 1.6 K/uL (0.7-4.9); Hematocrit 42.1 % (39.6-49.0); MCV 82.3 fL (80-100); MPV 8.3 fL (7.6-11.3); RBC Red Blood Cell Count 5.11 M/uL (4.33-5.43)
[2022-06-09 13:45] LABS: Potassium 4.3 mmol/L (3.5-5.1); Troponin High Sensitivity 6.5 pg/mL (<58.9)
[2022-06-09 14:06] LABS: SARS-COV-2 RT PCR NEGATIVE (NEGATIVE)
--- NOTE | 2022-06-09 14:18 | ER ---
Nurse's Notes [facility] Name: Alec Ortiz Jr Age: 67 yrs Sex: Male : 1955 Arrival Date: 06/09/2022 Time: 12:21 Bed 13 Private MD: Danette Varma Diagnosis: Atypical pneumonia Presentation: 06/09 12:26 Chief complaint: Patient states: congestion x2 weeks; getting worse. My lungs hurt and jh5 its painful to take a deep breath, fevers at 100 today; taking advil because I have body aches, chills, and headache. Coronavirus screen: Vaccine status: Patient reports receiving the 2nd dose of the covid vaccine. Client denies travel out of the [place] in the last 14 days. Ebola Screen: Patient negative for fever greater than or equal to 101.5 degrees Fahrenheit, and additional compatible Ebola Virus Disease symptoms Patient denies exposure to infectious person. Patient denies travel to an Ebola-affected area in the 21 days before illness onset. Initial Sepsis Screen: Does the patient meet any 2 criteria? No. Patient's initial sepsis screen is negative. Does the patient have a suspected source of infection? No. Patient's initial sepsis screen is negative. Risk Assessment: Do you want to hurt yourself or someone else? Patient reports no desire to harm self or others. Onset of symptoms was May 29, 2022. 12:26 Method Of Arrival: Ambulatory [facility] 12:26 Acuity: WILLA 3 jh5 Triage Assessment: 12:28 General: Appears uncomfortable, well groomed, well developed, Behavior is calm, jh5 cooperative, appropriate for age. Pain: Complains of pain in lungs. Respiratory: Reports shortness of breath cough that is pain with cough pain with respiration Onset: The symptoms/episode began/occurred gradually, the patient has mild shortness of breath. Historical: - Allergies: 12:28 Codeine; 5 12:28 PENICILLINS; jh5 - PMHx: 12:28 Diabetes - NIDDM; Hypertension; jh5 - Immunization history:: Adult Immunizations up to date. - Social history:: Smoking status: Patient denies any tobacco usage or history of. Screenin:14 [facility] ED Fall Risk Assessment (Adult) History of falling in the last 3 months, vg1 including since admission No falls in past 3 months (0 pts) Confusion or Disorientation No (0 pts) Intoxicated or Sedated No (0 pts) Impaired Gait No (0 pts) Mobility Assist Device Used No (0 pt) Altered Elimination No (0 pt) Score/Fall Risk Level 0 - 2 = Low Risk Oriented to surroundings, Maintained a safe environment, Educated pt \T\ family on fall prevention, incl call for assistance when getting out of bed, Assessed \T\ reinforced patient's understanding of fall precautions. Abuse screen: Denies threats or abuse. Denies injuries from another. Nutritional screening: No deficits noted. Tuberculosis screening: No symptoms or risk factors identified. Assessment: 13:14 General: Appears in no apparent distress. uncomfortable, Behavior is calm, cooperative. vg1 Pain: Complains of pain in left subscapular area Pain currently is 7 out of 10 on a pain scale. Pain began x 2 weeks. Neuro: Level of Consciousness is awake, alert, obeys commands, Oriented to person, place, time, situation, Reports headache. Cardiovascular: Patient's skin is warm and dry. Respiratory: Reports cough that is productive, dry, Airway is patent Respiratory effort is even, unlabored, Breath sounds are clear bilaterally. GI: No signs and/or symptoms were reported involving the gastrointestinal system. : No signs and/or symptoms were reported regarding the genitourinary system. EENT: No signs and/or symptoms were reported regarding the EENT system. Derm: Skin is pink, warm \T\ dry. Musculoskeletal: Circulation, motion, and sensation intact. 13:30 Cardiovascular: Rhythm is sinus rhythm. vg1 14:47 Reassessment: Patient appears in no apparent distress at this time. Patient and/or vg1 family updated on plan of care and expected duration. Pain level reassessed. Patient is alert, oriented x 3, equal unlabored respirations, skin warm/dry/pink. Patient states feeling better. Vital Signs: 12:26 BP 149 / 89; Pulse 85; Resp 18; Temp 98.3; Pulse Ox 95% ; Weight 99.79 kg; Height 5 ft. jh5 6 in. (167.64 cm); Pain 6/10; 13:00 BP 136 / 89; Pulse 77; Resp 14; Pulse Ox 97% on R/A; vg1 14:00 BP 116 / 83; Pulse 68; Resp 12; Pulse Ox 97% on R/A; vg1 14:30 BP 117 / 50; Pulse 70; Resp 18; Pulse Ox 97% on R/A; vg1 12:26 Body Mass Index 35.51 (99.79 kg, 167.64 cm) [facility] ED Course: 12:21 Patient arrived in ED. am2 12:21 Danette Varma DO is Private Physician. am2 12:23 Yarelis Awna FNP is [facility] 7 12:23 Vlad Hunter MD is Attending Physician. 7 12:28 Triage completed. 5 12:28 Arm band placed on right wrist. 5 13:03 Tiffany Jacobs, RN is Primary Nurse. vg1 13:14 Patient has correct armband on for positive identification. Placed in gown. Bed in low vg1 position. Call light in reach. Side rails up X 1. Client placed on continuous cardiac and pulse oximetry monitoring. NIBP monitoring applied. 13:30 Initial lab(s) drawn, by me. Inserted saline lock: 20 gauge in right antecubital area, sg5 using aseptic technique. Blood collected. 13:31 COVID-19/FLU A+B Sent. sg5 14:17 Danette Varma DO is Referral Physician. [facility] 14:49 No provider procedures requiring assistance completed. IV discontinued, intact, vg1 bleeding controlled, No redness/swelling at site. Pressure dressing applied. Administered Medications: 13:13 Drug: Ketorolac 15 mg Route: IVP; Site: right antecubital; sg5 14:48 Follow up: Response: No adverse reaction; Marked relief of symptoms vg1 Medication: 13:14 VIS not applicable for this client. vg1 Outcome: 14:17 Discharge ordered by . 7 14:49 Discharged to home ambulatory. vg1 14:49 Condition: good 14:49 Discharge instructions given to patient, Instructed on discharge instructions, follow up and referral plans. medication usage, Demonstrated understanding of instructions, follow-up care, medications, Prescriptions given X 3. 14:50 Patient left the ED. vg1 Signatures: Christine Cooney am2 Tiffany Jacobs, RN RN vg1 Fallon Torres RN RN [facility] Yarelis Awan FNP [place] [id number] Rachel Sampson RN RN sg5
--- NOTE | 2022-06-09 14:18 | EDPHYS ---
Physician Documentation [facility] Name: Alec Ortiz Jr Age: 67 yrs Sex: Male : 1955 Arrival Date: 06/09/2022 Time: 12:21 Bed 13 Private MD: Danette Varma ED Physician Vlad Hunter HPI: 06/09 12:30 This 67 yrs old Male presents to ER via Ambulatory with complaints of Chest jh7 Congestion, Shortness Of Breath. 12:30 Onset: The symptoms/episode began/occurred 2 week(s) ago, and became worse. Associated jh7 signs and symptoms: Pertinent positives: congestion, cough, fever, shortness of breath, Pertinent negatives: abdominal pain, diarrhea, sore throat, vomiting. Historical: - Allergies: 12:28 Codeine; jh5 12:28 PENICILLINS; jh5 - PMHx: 12:28 Diabetes - NIDDM; Hypertension; jh5 - Immunization history:: Adult Immunizations up to date. - Social history:: Smoking status: Patient denies any tobacco usage or history of. ROS: 12:30 Eyes: Negative for injury, pain, redness, and discharge, ENT: Negative for injury, jh7 pain, and discharge, Neck: Negative for injury, pain, and swelling, Cardiovascular: Negative for chest pain, palpitations, and edema, Abdomen/GI: Negative for abdominal pain, nausea, vomiting, diarrhea, and constipation, Back: Negative for injury and pain, MS/Extremity: Negative for injury and deformity, Skin: Negative for injury, rash, and discoloration, Neuro: Negative for headache, weakness, numbness, tingling, and seizure. 12:30 Constitutional: Positive for fever, malaise, Negative for poor PO intake. 12:30 Respiratory: Positive for cough, shortness of breath, Negative for wheezing. 12:30 All other systems are negative. Exam: 12:30 Constitutional: This is a well developed, well nourished patient who is awake, alert, jh7 and in no acute distress. Head/Face: Normocephalic, atraumatic. Eyes: Pupils equal round and reactive to light, extra-ocular motions intact. Lids and lashes normal. Conjunctiva and sclera are non-icteric and not injected. Cornea within normal limits. Periorbital areas with no swelling, redness, or edema. Neck: Trachea midline, no thyromegaly or masses palpated, and no cervical lymphadenopathy. Supple, full range of motion without nuchal rigidity, or vertebral point tenderness. No Meningismus. Cardiovascular: Regular rate and rhythm with a normal S1 and S2. No gallops, murmurs, or rubs. Normal PMI, no JVD. No pulse deficits. Abdomen/GI: Soft, non-tender, with normal bowel sounds. No distension or tympany. No guarding or rebound. No evidence of tenderness throughout. Back: No spinal tenderness. No costovertebral tenderness. Full range of motion. Skin: Warm, dry with normal turgor. Normal color with no rashes, no lesions, and no evidence of cellulitis. MS/ Extremity: Pulses equal, no cyanosis. Neurovascular intact. Full, normal range of motion. Neuro: Awake and alert, GCS 15, oriented to person, place, time, and situation. Motor strength 5/5 in all extremities. Sensory grossly intact. Normal gait. 12:30 ENT: TM's: are normal, Posterior pharynx: post nasal drainage. 12:30 Respiratory: the patient does not display signs of respiratory distress, Respirations: normal, Breath sounds: decreased breath sounds, are heard in the left posterior lower lobe and right posterior lower lobe. Vital Signs: 12:26 BP 149 / 89; Pulse 85; Resp 18; Temp 98.3; Pulse Ox 95% ; Weight 99.79 kg; Height 5 ft. jh5 6 in. (167.64 cm); Pain 6/10; 13:00 BP 136 / 89; Pulse 77; Resp 14; Pulse Ox 97% on R/A; vg1 14:00 BP 116 / 83; Pulse 68; Resp 12; Pulse Ox 97% on R/A; vg1 14:30 BP 117 / 50; Pulse 70; Resp 18; Pulse Ox 97% on R/A; vg1 12:26 Body Mass Index 35.51 (99.79 kg, 167.64 cm) jh5 MDM: 12:23 Patient medically screened. jh7 14:15 Differential diagnosis: viral Infection, bacterial infection, URI, bronchitis, jh7 pneumonia. Data reviewed: vital signs, nurses notes, lab test result(s), EKG, radiologic studies, plain films. I considered the following discharge prescriptions or medication management in the emergency department Medications were administered in the Emergency Department. See MAR. Independent interpretation of the following test(s) in the Emergency Department EKG: See my EKG interpretation above X-Ray: My interpretation is no acute findings. Care significantly affected by the following chronic conditions: Diabetes, Hypertension. Counseling: I had a detailed discussion with the patient and/or guardian regarding: the historical points, exam findings, and any diagnostic results supporting the discharge/admit diagnosis, to return to the emergency department if symptoms worsen or persist or if there are any questions or concerns that arise at home. ED course: Will treat for atypical bacterial process due to clinical presentation.. 06/09 12:30 Order name: Basic Metabolic Panel [facility] 06/09 12:30 Order name: CBC with Diff [facility] 06/09 12:30 Order name: NT PRO-BNP [facility] 06/09 12:30 Order name: Troponin HS [facility] 06/09 12:30 Order name: Lactate w/ 2H reflex if indic. [facility] 06/09 12:30 Order name: COVID-19/FLU A+B [facility] 06/09 12:30 Order name: XRAY Chest (1 view) [facility] 06/09 13:26 Order name: RAD; Complete Time: 13:49 EDMS 06/09 13:40 Order name: CBC with Automated Diff; Complete Time: 13:49 EDMS 06/09 13:45 Order name: Lactate w/ 2H reflex if indic.; Complete Time: 13:49 EDMS 06/09 13:46 Order name: Basic Metabolic Panel; Complete Time: 13:49 EDMS 06/09 13:46 Order name: Troponin High Sensitivity; Complete Time: 13:49 EDMS 06/09 13:46 Order name: NT PRO-BNP; Complete Time: 13:49 EDMS 06/09 14:06 Order name: COVID-19/FLU A+B; Complete Time: 14:13 [facility] 06/09 12:30 Order name: EKG; Complete Time: 12:31 [facility] 06/09 12:30 Order name: Cardiac monitoring; Complete Time: 13:29 [facility] 06/09 12:30 Order name: EKG - Nurse/Tech; Complete Time: 13:29 [facility] 06/09 12:30 Order name: IV Saline Lock; Complete Time: 13:18 [facility] 02/13 12:30 Order name: Labs collected and sent; Complete Time: 13:18 [facility] 06/09 12:30 Order name: O2 Per Protocol; Complete Time: : [facility] 06/09 12:30 Order name: O2 Sat Monitoring; Complete Time: : EC:30 Rate is 73 beats/min. Rhythm is regular. QRS [place] is Normal. [place] interval is normal at [facility] 144 msec. QRS interval is normal at 84 msec. QT interval is normal at 382 msec. No Q waves. T waves are Normal. No ST changes noted. Clinical impression: Normal ECG. Administered Medications: : Drug: Ketorolac 15 mg Route: IVP; Site: right antecubital; sg5 14:48 Follow up: Response: No adverse reaction; Marked relief of symptoms vg1 Disposition: 18:55 Co-signature as Attending Physician, Vlad Hunter MD I reviewed the patient's care rn provided by the Advanced Practice Provider and agree with the diagnosis and treatment plan. Disposition Summary: 06/09/22 14:17 Discharge Ordered Location: Home [facility] Problem: new [facility] Symptoms: are unchanged [facility] Condition: Stable [facility] Diagnosis - Atypical pneumonia [facility] Followup: [facility] - With: Danette Varma, DO - When: 2 - 3 days - Reason: Recheck today's complaints Discharge Instructions: - Discharge Summary Sheet [facility] - Community-Acquired Pneumonia, Adult [facility] - Cough, Adult [facility] Forms: - Medication Reconciliation Form [facility] - Thank You Letter [facility] - Antibiotic Education [facility] Prescriptions: - ProAir HFA 90 mcg/actuation Inhalation HFA aerosol inhaler - inhale 2 puff by INHALATION route every 4-6 hours As needed; 1 Inhaler; [facility] Refills: 0, Product Selection Permitted - Tessalon Perles 100 mg Oral Capsule - take 1 capsule by ORAL route every 8 hours As needed; 15 capsule; Refills: 0, [facility] Product Selection Permitted - Doxycycline Hyclate 100 mg Oral Tablet - take 1 tablet by ORAL route every 12 hours; 14 tablet; Refills: 0, Product [facility] Selection Permitted Signatures: Dispatcher [employer] Vlad Dove MD MD rn Rees, Jessica, RN RN 5 Yarelis Awan, CONTROL ANALYST CONTROL ANALYST 7 Rachel Sampson RN RN 5 Reynaldo, Tiffany RN vg1
[2022-06-09 14:59] VITALS: TEMP 98.3
[2022-06-09 15:03] VITALS: O2SAT 97
[2022-06-09 15:52] VITALS: BP 117/50
--- NOTE | 2022-06-10 17:13 | EKG ---
Test Date: 2022-06-09 Test Time: 13:27:43 Project Lead: PAN MEASUREMENT RESULTS: Intervals: Rate: 73 IA: 144 QRSD: 84 QT: 382 QTc: 420 [place]: P: 39 IA: 144 QRS: 15 T: 62 INTERPRETIVE STATEMENTS: Normal sinus rhythm Normal ECG Compared to ECG 02/25/2022 14:24:58 No significant changes Electronically Signed On 06-10-22 17:09:53 [employer] by Prateek Duarte
== END 2022-06-09 14:50 | disposition home or self-care (01) ==
LOC: ER 12:19
DX: J18.9 Pneumonia, unspecified organism (principal); I10 Essential (primary) hypertension; E11.9 Type 2 diabetes mellitus without complications; Z20.822 Contact with and (suspected) exposure to COVID-19; Z88.0 Allergy status to penicillin; Z88.5 Allergy status to narcotic agent
CPT/HCPCS: 85025; 80048; 36415; 83605; 84484; 83880; 0240U; 71045; 93005

== ENCOUNTER 2022-10-29 16:26 | Observation (INO) | payer OTHER ==
--- OUTSIDE RECORDS SUMMARY | 2022-10-29 16:50 | XMS REPORT | Continuity of Care Document ---
:1955 Author Organization [facility] [place] t Address [address] [place] [address] Care Team Providers Name Role Phone Rome Juarez Attending Clinician Unavailable TRE LOUISE Attending Clinician Unavailable VICTOR M TAYLOR Attending Clinician Unavailable Brett Rojas Attending Clinician Carla Jha Attending Clinician VISIT, NURSE UATS Attending Clinician Unavailable ESTIVEN SAHNI Attending Clinician Unavailable Therapy, [facility] Covid Infusion Attending Clinician Unavailable Estiven Sahni MD Attending Clinician Doctor Unassigned, [place] Attending Clinician Unavailable Tre Louise MD Attending [...] MD Attending Clinician TRE LOUISE Admitting Clinician Tre Pemberton MD Admitting Clinician Payers Payer Name Policy Type Policy Number Effective Date Expiration Date Abbey dumas [facility] [id number] 2018 00:00:00 GORDY NOVAK 5 [id number] 2022 00:00:00 Blue Cross 6 [id number] Common Spiri t Blue Shield [facility] Problems Condition Condition Condition Status Onset Resolution Last Treating Co mments Source Name Details Category Date Date Treatment Clinician Date [id number] Prostate Problem Active Com thu nodule [facility] [id number] Pelvic Problem Active Common pain [facility] [id number] BPH loc w Problem Active Com thu urin [facility] [id number] Acute Problem Active Common prostatiti Spirit [facility] Diabetes Diabetes Problem Resolve 2021-11-10 Memoria mellitus mellitus d 03:51:39 l in mother in mother Herm candace complicati complicati ng ng childbirth childbirth (disorder) (disorder) Resolved Problem 11/10/2021 Medical Group,[facility] her Neuro No known No known Disease Unive rs active active ity of problems problems [facility] Benign Benign Problem Active 2022-09-12 Trino rhoda prostatic prostatic 13:57:21 l hypertroph hypertroph He rmann without without outflow outflow obstructio obstructio n n (disorder) (disorder) Active Problem 09/12/2022 Medical Group,[facility] her Neuro,[facility] Time Share Cervical Cervical Problem Active 2022-09-12 Memoria radiculopa radiculopa 13:57:21 l thy thy Pro (disorder) (disorder) Active Problem 09/12/2022 Medical Group,[facility] her [facility] [place] [place] Chronic Chronic Problem Active 2022-09-12 Me moria obstructiv obstructiv 13:57:21 l e lung e lung [place] disease disease (disorder) (disorder) Active Problem 09/12/2022 [facility] [place] Coronary Coronary Problem Active 2022-09-12 Memoria arterioscl arterioscl 13:57:21 l erosis erosis Pro (disorder) (disorder) Active Problem 09/12/2022 Medical Group,[facility] her Neuro,[facility] Diabetes Diabetes Problem Active 2022-09-12 Memoria mellitus mellitus 13:57:21 l (disorder) (disorder) He rmann Active Problem 09/12/2022 Medical Group,[facility] her Neuro,[facility] Erectile Erectile Problem Active 2022-09-12 Memoria dysfunctio dysfunctio 13:57:21 l n n Active Pro Problem 09/12/2022 Medical Group,[facility] her Neuro,[facility] Time Share Hypertensi Hypertens Problem Active 2022-09-12 Memoria ve tatyana 13:57:21 l disorder, disorder, Herm candace systemic systemic arterial arterial (disorder) (disorder) Active Problem 09/12/2022 [facility] Late Late Problem Active 2022-09-12 Memor ia ejaculatio ejaculatio 13:57:21 l n n Rpo (finding) (finding) Active Problem 09/12/2022 Medical Group,[facility] her Neuro,[facility] Lumbar Lumbar Problem Active 2022-09-12 Trino rhoda radiculopa radiculopa 13:57:21 l thy thy Pro (disorder) (disorder) Active Problem 09/12/2022 [facility] Malignant Malignant Problem Active 2022-09-12 Memoria neoplasm neoplasm 13:57:21 l of skin of skin Pro (disorder) (disorder) Active Problem 09/12/2022 [facility] [place] Pain in Pain in Problem Active 2022-09-12 Me moria testicle testicle 13:57:21 l (finding) (finding) Herm candace Active Problem 09/12/2022 Medical Group,[facility] her Neuro,[facility] Paresthesi Problem Active 2022-09-12 M emoria a Paresthesi 13:57:21 l (finding) a Pro (finding) Active Problem 09/12/2022 Medical Group,[facility] her Neuro,[facility] Peripheral Periphera Problem Active 2022-09-12 Memoria nerve l nerve 13:57:21 l disease disease [place] (disorder) (disorder) Active Problem 09/12/2022 [facility] Prostatiti Prostatit Problem Active 2022-09-12 Memoria s is 13:57:21 l (disorder) (disorder) He rmann Active Problem 09/12/2022 Medical Group,[facility] her Neuro,[facility] Simple Simple Problem Active 2022-09-12 Trino [facility] obesity obesity 13:57:21 l (disorder) (disorder) He rmann Active Problem 09/12/2022 [facility] Allergies, Adverse Reactions, Alerts Allergy Allergy Status Severity Reaction(s) Onset Inactive Treating Comm ents Source Name Type Date Date Clinician PENICILL Drug Active Other-Cmnt Univ ers INS Class 08-01 ity of 00:00: [place] 00 Medical Branch CODEINE DRUG Active Other-Cmnt Unive rs INGREDI 08-01 ity of 00:00: [place] 00 Medical Branch Penicill Propensi Active Other - See U nivers ins ty to comments 08-01 ity of adverse 00:00: [place] reaction 00 Medical s Branch NO KNOWN Drug Active Univers ALLERGIE Class ity of S [facility] codeine codeine Active Memoria l Pro penicill penicill Active Memori a in in l [place] Codeine Codeine Active Unknown [facility] Social History Social Habit Start Date Stop Date Quantity Comments Source History of Tobacco [facility] Use [facility] Exposure to Not sure [facility] SARS-CoV-2 (event) Medica l Branch Social History 2022-03-12 2022-03-12 [facility] 21:55:55 21:55:55 Tobacco use and 2020-11-29 2020-11-29 Never used [facility] exposure 00:00:00 00:00:00 Medical [place] Social History 2020-11-16 2020[facility]:11 20:18:11 Smoking Status Start Date Stop Date Source Tobacco smoking status [facility] Unknown if ever smoked [facility] Medications Ordered Filled Start Stop Current Ordering Indication Dosage Frequency Signature Comments Components Source Medication Medication Date Date Medication? 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, Height, 100, kg, 03/11/22 14:41: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, Weight baclofen 10 Yes See Memori a mg oral 2-08 Instructio l tablet 14:24: ns, TAKE 1 Mera nn 00 TABLET TWICE DAILY, # 180 tab, 1 Refill(s), Pharmacy: [facility], 170.18, cm, 03/11/22 14:41: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, Height, 100, kg, 03/11/22 14:41: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, Weight gabapentin 2021-04 Yes 300 mg = 1 M emoria 300 mg oral 1-15 cap, PO, l capsule 20:58: TID, # 270 Herm candace 00 cap, 1 Refill(s), Pharmacy: [facility], 170.18, cm, 03/11/22 14:41: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, Height, 100, kg, 03/11/22 14:41: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, Weight gabapentin 2021-04 Yes 300 mg = 1 M emoria 300 mg oral 1-15 cap, PO, l capsule 20:58: TID, # 270 Herm candace 00 cap, 1 Refill(s), Pharmacy: [facility], 170.18, cm, 03/11/22 14:41: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, Height, 100, kg, 03/11/22 14:41: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, Weight tamsulosin 2021-04 Yes 0.4 mg = 1 M emoria 0.4 mg oral 0-05 cap, PO, l capsule 19:35: Daily, 30 Mera nn 00 minutes after the same meal, # 90 cap, 3 Refill(s), Pharmacy: [facility], clarificat ion requested per fax, 170.18, cm, 11/07/21 15:46:00 CDT, Height, 98.636, kg, 11/07/21 15:46:00 CDT, Weight tamsulosin 2-1 Yes 0.4 mg = 1 M emoria 0.4 mg oral 0-05 cap, PO, l capsule 19:35: Daily, 30 Mera nn 00 minutes after the same meal, # 90 cap, 3 Refill(s), Pharmacy: [facility], clarificat ion requested per fax, 170.18, cm, 11/07/21 15:46:00 CDT, Height, 98.636, kg, 11/07/21 15:46:00 CDT, Weight gabapentin 2-0 Yes 600 mg = 2 M emoria 300 mg oral 9-22 cap, PO, l capsule 00:30: Bedtime, # Herm candace 00 180 cap, 1 Refill(s), Pharmacy: [facility], 170.18, cm, 11/07/21 15:46:00 CDT, Height, 98.636, kg, 11/07/21 15:46:00 CDT, Weight gabapentin 2-0 Yes 600 mg = 2 M emoria 300 mg oral 9-22 cap, PO, l capsule 00:30: Bedtime, # Herm candace 00 180 cap, 1 Refill(s), Pharmacy: [facility], 170.18, cm, 11/07/21 15:46:00 CDT, Height, 98.636, kg, 11/07/21 15:46:00 CDT, Weight DULoxetine 2-0 Yes 60 mg = 1 Me moria 60 mg oral 9-22 cap, PO, l delayed 00:29: Daily, # Kunal n release 00 90 cap, 1 capsule Refill(s), Pharmacy: [facility], 170.18, cm, 11/07/21 15:46:00 CDT, Height, 98.636, kg, 11/07/21 15:46:00 CDT, Weight DULoxetine 2022-0 Yes 60 mg = 1 Me moria 60 mg oral 9-22 cap, PO, l delayed 00:29: Daily, # Kunal n release 00 90 cap, 1 capsule Refill(s), Pharmacy: [facility], 170.18, cm, 11/07/21 15:46:00 CDT, Height, 98.636, kg, 11/07/21 15:46:00 CDT, Weight baclofen 10 2021-0 Yes 10 mg = 1 M emoria mg oral 9-22 tab, PO, l tablet 00:28: BID, # 180 Mera nn 00 tab, 1 Refill(s), Pharmacy: [facility], 170.18, cm, 11/07/21 15:46:00 CDT, Height, 98.636, kg, 11/07/21 15:46:00 CDT, Weight baclofen 10 2021-0 Yes 10 mg = 1 M emoria mg oral 9-22 tab, PO, l tablet 00:28: BID, # 180 Mera nn 00 tab, 1 Refill(s), Pharmacy: [facility], 170.18, cm, 11/07/21 15:46:00 CDT, Height, 98.636, kg, 11/07/21 15:46:00 CDT, Weight Gralise 600 2-0 Yes 600 mg = 1 Memoria mg/24 hours 7-14 tab, PO, l oral tablet 21:00: Bedtime, # [place] 00 30 tab, 1 Refill(s), Pharmacy: [facility] #[id number], 170.18, cm, 11/07/21 15:46:00 CDT, Height, 98.636, kg, 11/07/21 15:46:00 CDT, Weight Gralise 600 2022-0 Yes 600 mg = 1 Memoria mg/24 hours 7-14 tab, PO, l oral tablet 21:00: Bedtime, # Pro 00 30 tab, 1 Refill(s), [id number], 170.18, cm, 11/07/21 15:46:00 CDT, Height, 98.636, kg, 11/07/21 15:46:00 CDT, Weight Gralise 600 2-0 Yes 600 mg = 1 Memoria mg/24 hours 7-14 tab, PO, l oral tablet 21:00: Bedtime, # Pro 00 30 tab, 1 Refill(s), Pharmacy: [facility] #[id number], 170.18, cm, 11/07/21 15:46:00 CDT, Height, 98.636, kg, 11/07/21 15:46:00 CDT, Weight tamsulosin 2-0 Yes 0.4 mg = 1 M emoria 0.4 mg oral 6-07 cap, PO, l capsule 22:04: Daily, # Kunal n 00 30 cap, 3 Refill(s), Pharmacy: [facility] #[id number], 170.18, cm, 09/16/21 14:27:00 CDT, Height, 101.563, kg, 09/16/21 14:27:00 CDT, Weight Trimix 2-0 Yes Trimix, 6 Memori a 6-07 units, l 22:04: intraCAVER [place] 00 NOSAL, Q24H, PRN sexual intercours e, Papaverine 30mg/mL, Phentolami ne 1mg/mL, Prostaglan din E1 10mcg/mL. 5 mL vial, # 5 mL, Refill(s) 0, Pharmacy: [facility], 170.18, cm, 09/16/21 14:27:00 CDT, Height, 101.563, kg, ... tamsulosin 2-0 Yes 0.4 mg = 1 M emoria 0.4 mg oral 6-07 cap, PO, l capsule 22:04: Daily, # Kunal n 00 30 cap, 3 Refill(s), [id number], 170.18, cm, 09/16/21 14:27:00 CDT, Height, 101.563, kg, 09/16/21 14:27:00 CDT, Weight Trimix 2-0 Yes Trimix, 6 Memori a 6-07 units, l 22:04: intraCAVER [place] 00 NOSAL, Q24H, PRN sexual intercours e, Papaverine 30mg/mL, Phentolami ne 1mg/mL, Prostaglan din E1 10mcg/mL. 5 mL vial, # 5 mL, Refill(s) 0, Pharmacy: [facility], 170.18, cm, 09/16/21 14:27:00 CDT, Height, 101.563, kg, ... tamsulosin Yes 0.4 mg = 1 M emoria 0.4 mg oral 6-07 cap, PO, l capsule 22:04: Daily, # Kunal n 00 30 cap, 3 Refill(s), Pharmacy: [facility] #[id number], 170.18, cm, 09/16/21 14:27:00 CDT, Height, 101.563, kg, 09/16/21 14:27:00 CDT, Weight Trimix Yes Trimix, 6 Memori a 6-07 units, l 22:04: intraCAVER [place] 00 NOSAL, Q24H, PRN sexual intercours e, Papaverine 30mg/mL, Phentolami ne 1mg/mL, Prostaglan din E1 10mcg/mL. 5 mL vial, # 5 mL, Refill(s) 0, Pharmacy: [facility], 170.18, cm, 09/16/21 14:27:00 CDT, Height, 101.563, kg, ... Toujeo Max Yes SUB-Q, Memor ia SoloStar 6-07 Daily, 0 l 21:06: Refill(s) Toujeo Max 0 Yes SUB-Q, Memor ia SoloStar 6-07 Daily, 0 l 21:06: Refill(s) Toujeo Max 0 Yes SUB-Q, Memor ia SoloStar 6-07 Daily, 0 l 21:06: Refill(s) baclofen 10 Yes 10 mg = [...] tab, PO, l tablet 19:41: TID, 0 [place] 00 Refill(s) Flomax 0.4 Yes 0.4 mg [...] KwikPen 5-23 SUB-Q, l 19:40: Daily, 0 [place] 00 Refill(s) Flomax 0.4 Yes 0.4 mg = 1 M emoria mg oral 5-23 cap, PO, l capsule 19:40: Daily, 0 Kunal n 00 Refill(s) Basaglar Yes 10 unit, Memor ia KwikPen 5-23 SUB-Q, l 19:40: Daily, 0 Pro 00 Refill(s) Plavix 75 0 Yes 75 mg = 1 Mem oria mg oral 5-23 tab, PO, l tablet 19:39: Daily, 0 [place] 00 Refill(s) Lipitor 40 0 Yes 40 mg = 1 Me moria mg oral 5-23 tab, PO, l tablet 19:39: Daily, 0 [place] 00 Refill(s) Plavix 75 0 Yes 75 mg = 1 Mem oria mg oral 5-23 tab, PO, l tablet 19:39: Daily, 0 [place] 00 Refill(s) Lipitor 40 0 Yes 40 mg = 1 Me moria mg oral 5-23 tab, PO, l tablet 19:39: Daily, 0 Pro 00 Refill(s) Plavix 75 0 Yes 75 mg = 1 Mem oria mg oral 5-23 tab, PO, l tablet 19:39: Daily, 0 Pro 00 Refill(s) Lipitor 40 2021-0 Yes 40 mg = 1 Me moria mg oral 5-23 tab, PO, l tablet 19:39: Daily, 0 Pro 00 Refill(s) DULoxetine Yes See Memoria 60 mg oral 5-23 Instructio l delayed 16:44: ns, TAKE 1 Herm candace release 00 CAPSULE BY capsule MOUTH EVERY DAY, # 30 unknown unit, 1 Refill(s), [id number], 167.64, cm, 08/20/21 15:12:00 CDT, Height, 101.506, kg, 08/20/21 15:12:00 CDT, Weight DULoxetine Yes See Memoria 60 mg oral 5-23 Instructio l delayed 16:44: ns, TAKE 1 Herm candace release 00 CAPSULE BY capsule MOUTH EVERY DAY, # 30 unknown unit, 1 Refill(s), Pharmacy: [facility] #[id number], 167.64, cm, 08/20/21 15:12:00 CDT, Height, 101.506, kg, 08/20/21 15:12:00 CDT, Weight DULoxetine Yes See Memoria 60 mg oral 5-23 Instructio l delayed 16:44: ns, TAKE 1 Herm candace release 00 CAPSULE BY capsule MOUTH EVERY DAY, # 30 unknown unit, 1 Refill(s), Pharmacy: [facility] #[id number], 167.64, cm, 08/20/21 15:12:00 CDT, Height, 101.506, kg, 08/20/21 15:12:00 CDT, Weight Ativan 0.5 Yes See Memoria mg oral 3-04 Instructio l tablet 00:19: ns, Take 1 Mera nn 00 tab po 1 hour prior to MRI, may repeat q 15 min. 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, Height, 98.636, kg, 06/25/21 13:26: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, Weight Flomax 0.4 Flomax 0.4 2021-0 2021- No 1{capsu QD Flomax 0.4 MG MG 05-01- le} MG 00:00: 00:00 00 :00 Flomax 0.4 Flomax 0.4 2021-0 2021- No 1{capsu QD Flomax 0.4 MG MG 05-01- le} MG 00:00: 00:00 00 :00 Flomax 0.4 Flomax 0.4 2021-0 2021- No 1{capsu QD Flomax 0.4 MG MG 05-01-03 le} MG 00:00: 00:00 00 :00 Cipro 500 Cipro 500 2021-0 2021- No 1{table BID Cipro 500 MG MG 05-01 t} MG 00:00: 00:00 00 :00 DULoxetine 2020- Yes See Memoria 60 mg oral 2-20 Instructio l delayed 19:26: ns, TAKE Kunal n release 00 ONE (1) capsule CAPSULE(S) BY MOUTH ONCE A DAY., # 30 ea, 5 Refill(s), Pharmacy: [id number], 167.64, cm, 11/16/20 15:25:00 CDT, Height, 100, kg, 11/16/20 15:25:00 CDT, Weight DULoxetine 2020-04 Yes See Memoria 60 mg oral 2-20 Instructio l delayed 19:26: ns, TAKE Kunal n release 00 ONE (1) capsule CAPSULE(S) BY MOUTH ONCE A DAY., # 30 ea, 5 Refill(s), Pharmacy: [place] [id number], 167.64, cm, 11/16/20 15:25:00 CDT, Height, 100, kg, 11/16/20 15:25:00 CDT, Weight DULoxetine 2020-04 Yes See Memoria 60 mg oral 2-20 Instructio l delayed 19:26: ns, TAKE Kunal n release 00 ONE (1) capsule CAPSULE(S) BY MOUTH ONCE A DAY., # 30 ea, 5 Refill(s), Pharmacy: [place] [id number], 167.64, cm, 11/16/20 15:25:00 CDT, Height, 100, kg, 11/16/20 15:25:00 CDT, Weight casirivimab 2020- No [id number] 1200mg Univers -imdevimab 12-11 ity of (REGEN-COV 19:45: 20:04 [place] (EUA)) 00 :00 Medical 1,200 mg in Branch NaCl 0.9% (NS) 60 mL IV infusion casirivimab 2020- No [id number] 1200mg 1,200 mg, Univers -imdevimab 12-11 IV ity of (REGEN-COV 19:45: 20:04 Infusion, T [place] (EUA)) 00 :00 ONCE, Tue Medical 1,200 mg in 12/11/20 at Br anch NaCl 0.9% 1445, For (NS) 60 mL 1 IV infusion dose
Ad risk analyst as an IV infusion via pump or gravity over at least 60 minutes through an intravenou s line containing a sterile, in-line or add-on 0.2-micron polyethers ulfone (PES) filter.&nb sp;Stable 36 hours refrigerat ed; 4 hours at room temperatur e. &nbs p;
sodium Yes PRN, Univers chloride 8-04 Starting ity of (NS) 14:31: 11/28/20 [place] injection 00 at 0931, Medica l Until Branch Discontinu ed, Routine, Intra-op sodium 2020- No PRN, Univers chloride 11-28 Starting ity of (NS) 14:31: 17:19 11/28/20 [place] injection 00 :28 at 0931, Medica l Until Wed Branch 11/28/20 at 1219, Routine, Intra-op neomycin-po Yes PRN, Univer s lymyxin-dex 11-28 Starting [...] 11-28 Starting ity o f irrigation 14:29: 11/28/20 [place] solution 00 at 0929, Medical [...] Thu11/28/20 [place] (ADRENALIN[place] 00 :28 at 0922, Medi jared injection Until Wed Branc h 11/28/20 at 1219, Routine, Intra-op DUOVISC 2020- No PRN, Univers (DUOVISC 11-28 Starting ity of VISCO 14:22: 17:19 Thu11/28/20 [place] ELASTIC) 3 00 :28 at 0922, [...] ity of soln comb1 14:21: 17:19 Thu11/28/20 [place] (BSS PLUS) 00 :28 at 0921, Medic [...] Pre-op lactated 2020- No 1000mL at 42 [facility] rs ringers IV 8-04 08-04 mL/hr, ity of infusion 13:30: 13:36 1,000 mL, [place] as 1,000 mL 00 :00 IV Medical Infusion, [place] ONCE, 1 dose, Thu11/28/20 at 0830, Routine, DSU Pre-op mydriatic 2020- No .5mL 0.5 mL, [facility] ers #5 11-28 08 Left Eye, ity of ophthalmic 13:30: 13:36 ONCE, 1 [place] as solution 00 :00 dose, Thu Medica l 0.5 mL 11/28/20 at [place] syringe 0830, Routine, DSU Pre-op lactated 2020- No 1000mL at 42 [facility] rs ringers IV 11-28 08-04 mL/hr, ity of infusion 13:30: 13:36 1,000 mL, [place] as 1,000 mL 00 :00 IV Medical Infusion, [place] ONCE, 1 dose, Thu11/28/20 at 0830, Routine, DSU Pre-op water for Yes PRN, Univers irrigation 11-14 Starting ity o f irrigation 13:07: Wed [place] solution 00 11/14/20 at Medic al 0807, [place] Until Discontinu ed, Routine, Intra-op water for 2020- No PRN, Univers irrigation 11-14 Starting ity of irrigation 13:07: 15:58 Wed [place] solution 00 :51 11/14/20 at Medic al 0807, [place] Until Thu11/14/20 at 1058, Routine, Intra-op neomycin-po Yes PRN, [facility] s lymyxin-dex 11-14 Starting ity of amethasone 13:06: Wed [place] (MAXITROL) 00 11/14/20 at Med ical 3.5 0806, [place] mg/g-10,000 Until unit/g-0.1 Discontinu % ed, ophthalmic Routine, ointment Intra-op DUOVISC Yes PRN, Univers (DUOVISC 11-14 Starting ity of VISCO 13:06: Wed [place] ELASTIC) 3 00 11/14/20 at Med ical %-4 %(0.5 0806, Branch mL) 1 % Until (0.55 mL) Discontinu intraocular ed, injection Routine, Intra-op dexamethaso Yes PRN, Univer s ne 11-14 Starting ity of (DECADRON 13:06: Wed [place] PHOSPHATE) 00 11/14/20 at Med ical injection 0806, Branch Until Discontinu ed, Routine, Intra-op carbachoL Yes PRN, Univers (MIOSTAT) 11-14 Starting ity of 0.01 % 13:06: Wed [place] intraocular 00 11/14/20 at Vt dical injection 0806, Branch Until Discontinu ed, Routine, Intra-op neomycin-po 2020- No PRN, Unive rs lymyxin-dex 11-14 Starting ity of amethasone 13:06: 15:58 Wed [place] (MAXITROL) 00 :51 11/14/20 at [facility] ical 3.5 0806, Branch mg/g-10,000 Until Thu unit/g-0.1 11/14/20 at % 1058, ophthalmic Routine, ointment Intra-op DUOVISC 2020- No PRN, Univers (DUOVISC 11-14 Starting ity of VISCO 13:06: 15:58 Thu [place] ELASTIC) 3 00 :51 11/14/20 at Med ical %-4 %(0.5 08, Branch mL) 1 % Until Thu (0.55 mL) 11/14/20 at intraocular 1058, injection Routine, Intra-op dexamethaso 2020- No PRN, Unive rs ne 11-14 Starting ity of (DECADRON 13:06: 15:58 Wed [place] PHOSPHATE) 00 :51 11/14/20 at Med ical injection 0806, Branch Until Thu11/14/20 at 1058, Routine, Intra-op carbachoL 2020- No PRN, Univers (MIOSTAT) 11-14 Starting ity o f 0.01 % 13:06: 15:58 Wed [place] intraocular 00 :51 11/14/20 at Me dical injection 0806, Branch Until Thu11/14/20 at 1058, Routine, Intra-op balanced Yes PRN, Univers salt irrig 11-14 Starting ity o f soln comb1 13:05: Wed [place] (BSS PLUS) 00 11/14/20 at [facility] ical ophthalmic 0805, Branch solution Until 500 mL bag Discontinu ed, Routine, Intra-op balanced 2020- No PRN, Univers salt irrig 11-14 Starting ity of soln comb1 13:05: 15:58 [facility] (BSS PLUS) 00 :51 11/14/20 at [facility] ical ophthalmic 0805, Branch solution Until Thu 500 mL bag 11/14/20 at 1058, Routine, Intra-op Hyaluronida Yes PRN, Univer s se, Human 11-14 Starting ity of Recomb. 13:02: Thu [place] (HYLENEX) 00 11/14/20 at [facility] injection 0802, Branch Until Discontinu ed, Routine, Intra-op eye block Yes PRN, Univers syringe 11 11-14 Starting ity o f mL 13:02: Thu [place] 00 11/14/20 at [place] [id number], [place] Until Discontinu ed, Intra-op Hyaluronida 2020- No PRN, Unive rs se, Human 11-14 Starting ity o f Recomb. 13:02: 15:58 [facility] (HYLENEX) 00 :51 11/14/20 at [facility] injection 0802, Branch Until Thu11/14/20 at 1058, Routine, Intra-op eye block 2020- No PRN, Univers syringe 11 11-14 Starting ity of mL 13:02: 15:58 [facility] 00 :51 11/14/20 at [facility] 0802, Branch Until Thu11/14/20 at 1058, Intra-op mydriatic 2020- No .5mL 0.5 mL, Univ ers #5 11-14 Right Eye, ity of ophthalmic 12:15: 12:18 ONCE, 1 [place] as solution 00 :00 dose, Thu Medica l 0.5 mL 11/14/20 at [place] syringe 0715, Routine, DSU Pre-op lactated 2020- No 1000mL at 42 Unive rs ringers IV 11-14 mL/hr, ity of infusion 12:15: 12:18 1,000 mL, [place] as 1,000 mL 00 :00 IV Medical Infusion, Branch ONCE, 1 dose, Thu11/14/20 at 0715, Routine, DSU Pre-op mydriatic 2020- [...] IV Medical Infusion, Branch ONCE, 1 dose, Thu11/14/20 at 0715, Routine, DSU Pre-op Brilinta 2020-0 Yes PO, BID, 0 Mem oria 6-04 Refill(s) l 21:25: [place] 00 Brilinta 2020-0 Yes PO, BID, 0 Mem oria 6-04 Refill(s) l 21:25: [place] 00 Brilinta 2020-0 Yes PO, BID, 0 Mem oria (ticagrelor 6-04 Refill(s) l ) 21:25: [place] 00 Brilinta 2020-0 Yes PO, BID, 0 Mem oria 6-04 Refill(s) l 21:25: [place] 00 Brilinta 2020-0 Yes PO, BID, 0 Mem oria (ticagrelor 6-04 Refill(s) l ) 21:25: gabapentin 0 Yes 100 mg = 1 M emoria 100 MG Oral 2-18 cap, PO, l Capsule 18:59: QAM, # 30 Mera nn 00 cap, 3 Refill(s), [id number], 167.64, cm, 06/14/20 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, Height, 96.818, kg, 06/14/20 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, Weight gabapentin 2020-0 Yes 100 mg = 1 M emoria 100 MG Oral 2-18 cap, PO, l Capsule 18:59: QAM, # 30 Mera nn 00 cap, 3 Refill(s), Pharmacy: [facility] #[id number], 167.64, cm, 06/14/20 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, Height, 96.818, kg, 06/14/20 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, Weight gabapentin 202-0 Yes 100 mg = 1 M emoria 100 MG Oral 2-18 cap, PO, l Capsule 18:59: QAM, # 30 Mera nn 00 cap, 3 Refill(s), Pharmacy: [facility] #[id number], 167.64, cm, 06/14/20 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, Height, 96.818, kg, 06/14/20 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, Weight baclofen 10 2020-0 Yes = 1 tab, Me moria mg oral 2-18 PO, BID, # l tablet 15:35: 60 tab, 4 Kunal n 00 Refill(s), Pharmacy: [facility] #[id number], 167.64, cm, 06/14/20 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, Height, 96.818, kg, 06/14/20 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, Weight gabapentin 2020-0 Yes 300 mg = 1 M emoria 300 MG Oral 2-18 cap, PO, l Capsule 15:35: Bedtime, # Herm candace 00 30 cap, 3 Refill(s), Pharmacy: [facility] #[id number], 167.64, cm, 06/14/20 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, Height, 96.818, kg, 06/14/20 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, Weight baclofen 10 2020-0 Yes = 1 tab, Me moria mg oral 2-18 PO, BID, # l tablet 15:35: 60 tab, 4 Kunal n 00 Refill(s), Pharmacy: [facility] #[id number], 167.64, cm, 06/14/20 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, Height, 96.818, kg, 06/14/20 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, Weight gabapentin 202-0 Yes 300 mg = 1 M emoria 300 MG Oral 2-18 cap, PO, l Capsule 15:35: Bedtime, # Herm candace 00 30 cap, 3 Refill(s), Pharmacy: [facility] #[id number], 167.64, cm, 06/14/20 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, Height, 96.818, kg, 06/14/20 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, Weight baclofen 10 2020-0 Yes = 1 tab, Me moria mg oral 2-18 PO, BID, # l tablet 15:35: 60 tab, 4 Kunal n 00 Refill(s), Pharmacy: [facility] #[id number], 167.64, cm, 06/14/20 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, Height, 96.818, kg, 06/14/20 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, Weight gabapentin 2020-0 Yes 300 mg = 1 M emoria 300 MG Oral 2-18 cap, PO, l Capsule 15:35: Bedtime, # Herm candace 00 30 cap, 3 Refill(s), Pharmacy: [facility] #[id number], 167.64, cm, 06/14/20 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, Height, 96.818, kg, 06/14/20 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, Weight DULoxetine 0 Yes 60 mg = 1 Me moria 60 mg oral 2-18 cap, PO, l delayed 15:34: Daily, # Kunal n release 00 30 cap, 3 capsule Refill(s), Pharmacy: [facility] #[id number], 167.64, cm, 06/14/20 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, Height, 96.818, kg, 06/14/20 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, Weight DULoxetine 2020-0 Yes 60 mg = 1 Me moria 60 mg oral 2-18 cap, PO, l delayed 15:34: Daily, # Kunal n release 00 30 cap, 3 capsule Refill(s), Pharmacy: [facility] #[id number], 167.64, cm, 06/14/20 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, Height, 96.818, kg, 06/14/20 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, Weight DULoxetine 2020-0 Yes 60 mg = 1 Me moria 60 mg oral 2-18 cap, PO, l delayed 15:34: Daily, # Kunal n release 00 30 cap, 3 capsule Refill(s), Pharmacy: [facility] #[id number], 167.64, cm, 06/14/20 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, Height, 96.818, kg, 06/14/20 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, Weight isosorbide 2020-0 No 40 mg, PO, [...] 0 Memori a 2-18 Refill(s) l 15:33: [place] 00 isosorbide 1-0 Yes PO, 0 Memori a mononitrate 2-18 Refill(s) l 15:33: [place] 00 isosorbide 1-0 No 40 mg, PO, M emoria dinitrate 2-18 Daily, 0 l extended 15:33: Refill(s) Herm candace release 00 Isosorbide 1-0 Yes PO, 0 Memori a 2-18 Refill(s) l 15:33: [place] 00 isosorbide 1-0 Yes PO, 0 Memori a mononitrate 2-18 Refill(s) l 15:33: [place] 00 DULoxetine 2020-0 Yes 60 mg = 1 Me moria 60 mg oral 8-21 cap, PO, l delayed 22:56: Daily, # Kunal n release 00 30 cap, 3 capsule Refill(s), Pharmacy: [facility] #[id number], 167.64, cm, 10/26/19 14:53:00 CDT, Height, 92.727, kg, 10/26/19 14:53:00 CDT, Weight DULoxetine 2019-0 Yes 60 mg = 1 Me moria 60 mg oral 8-21 cap, PO, l delayed 22:56: Daily, # Kunal n release 00 30 cap, 3 capsule Refill(s), Pharmacy: [facility] #[id number], 167.64, cm, 10/26/19 14:53:00 CDT, Height, 92.727, kg, 10/26/19 14:53:00 CDT, Weight DULoxetine 2020-0 Yes 60 mg = 1 Me moria 60 mg oral 8-21 cap, PO, l delayed 22:56: Daily, # Kunal n release 00 30 cap, 3 capsule Refill(s), Pharmacy: [facility] #[id number], 167.64, cm, 10/26/19 14:53:00 CDT, Height, 92.727, kg, 10/26/19 14:53:00 CDT, Weight DULoxetine 2020-0 No = 1 cap, Mem oria 30 mg oral 7-28 PO, Daily, l delayed 14:48: # 30 cap, Mera nn release 00 0 capsule Refill(s), Pharmacy: [facility] #[id number], 167.64, cm, 10/26/19 14:53:00 CDT, Height, 92.727, kg, 10/26/19 14:53:00 CDT, Weight DULoxetine 2020-0 No = 1 cap, Mem oria 30 mg oral 7-28 PO, Daily, l delayed 14:48: # 30 cap, Mera nn release 00 0 capsule Refill(s), Pharmacy: [facility] #[id number], 167.64, cm, 10/26/19 14:53:00 CDT, Height, 92.727, kg, 10/26/19 14:53:00 CDT, Weight DULoxetine 2020-0 No = 1 cap, Mem oria 30 mg oral 7-28 PO, Daily, l delayed 14:48: # 30 cap, Mera nn release 00 0 capsule Refill(s), Pharmacy: [facility] #[id number], 167.64, cm, 10/26/19 14:53:00 CDT, Height, 92.727, kg, 10/26/19 14:53:00 CDT, Weight duloxetine 2020-0 Yes 30 mg = 1 Me moria 30 MG 6-03 cap, PO, l Enteric 20:56: Daily, # Kunal n Coated 00 30 cap, 1 Capsule Refill(s), [Cymbalta] Pharmacy: [facility] #[id number] baclofen 10 2020-0 Yes 10 mg = 1 M emoria mg oral 6-03 tab, PO, l tablet 20:56: BID, # 60 Kunal n 00 tab, 2 Refill(s), Pharmacy: [facility] #[id number] duloxetine 2020-0 Yes 30 mg = 1 Me moria 30 MG 6-03 cap, PO, l Enteric 20:56: Daily, # Kunal n Coated 00 30 cap, 1 Capsule Refill(s), [Cymbalta] Pharmacy: [facility] #[id number] baclofen 10 2020-0 Yes 10 mg = 1 M emoria mg oral 6-03 tab, PO, l tablet 20:56: BID, # 60 Kunal n 00 tab, 2 Refill(s), Pharmacy: [facility] #[id number] duloxetine 2020-0 Yes 30 mg = 1 Me moria 30 MG 6-03 cap, PO, l Enteric 20:56: Daily, # Kunal n Coated 00 30 cap, 1 Capsule Refill(s), [Cymbalta] Pharmacy: [facility] #[id number] baclofen 10 2020-0 Yes 10 mg = 1 M emoria mg oral 6-03 tab, PO, l tablet 20:56: BID, # 60 Kunal n 00 tab, 2 Refill(s), Pharmacy: [facility] #[id number] lisinopril 2019-0 Yes 0 Memoria 40 mg oral 6-03 Refill(s) l tablet 19:59: Pro Metformin 2020-0 No 0 Memoria hydrochlori 6-03 Refill(s) l de 500 MG 19:59: [place] Oral Tablet 00 glimepiride 2019-0 No 0 Memori a 2 mg oral 6-03 Refill(s) l tablet 19:59: [place] amLODIPine 2020-0 Yes 0 Memoria 10 mg oral 6-03 Refill(s) l tablet 19:59: Pro Metformin 2020-0 No 0 Memoria hydrochlori 6-03 [...] mg oral 6-03 Refill(s) l tablet 19:59: [place] 00 lisinopril 2020-0 Yes 0 Memoria 40 mg oral 6-03 Refill(s) l tablet 19:59: Aspirin 81 2020-0 Yes 81 mg = 1 Me moria MG Enteric 5-29 tab, PO, l Coated 14:22: Daily, # [place] Tablet 00 90 tab, 3 Refill(s), other [...] coated 00 90 tab, 3 Refill(s), other Aspirin 81 2020-0 Yes 81 mg = 1 Me moria MG Enteric 5-29 tab, PO, l Coated 14:22: Daily, # [place] Tablet 00 90 tab, 3 Refill(s), other [...] candace 00 30 cap, 3 Refill(s), Pharmacy: [facility] #[id number] gabapentin 2020-0 Yes 300 mg = 1 M emoria 300 MG Oral 5-29 cap, PO, l Capsule 14:21: Bedtime, # Herm candace 00 30 cap, 3 Refill(s), Pharmacy: [facility] #[id number] gabapentin 2020-0 Yes 300 mg = 1 M emoria 300 MG Oral 5-29 cap, PO, l Capsule 14:21: Bedtime, # Herm candace 00 30 cap, 3 Refill(s), Pharmacy: [facility] #[id number] pravastatin 2020-0 Yes 20 mg = 1 [...] 5-28 Daily, 0 l 14:50: Refill(s) benzonatate 2019- No [id number] 100mg Take 1 Univers (TESSALON 08-01 capsule by [employer]) 100 00:00: 04:59 mouth 3 [place] mg capsule 00 :00 (three) Medica l times Branch daily for 14 days. benzonatate 2019- No [id number] 100mg Take 1 Univers (TESSALON 08-01 capsule by [employer]) 100 00:00: 04:59 mouth 3 [place] mg capsule 00 :00 (three) Medica l times Branch daily for 14 days. benzonatate 2019- No [id number] 100mg Take 1 Univers (TESSALON 08-01 capsule by [employer]) 100 00:00: 04:59 mouth 3 [place] mg capsule 00 :00 (three) Medica l times Branch daily for 14 days. maalox:diph 2019- No [id number] 10mL Take 10 mL Univers enhydrAMINE 4-07 04-13 by mouth ity of :lidocaine 00:00: 04:59 as needed [place] 2 % viscous 00 :00 for Oral Medi jared 1:1:1 mucositis Branch for up to 5 days. azithromyci 2020-0 2020- No [id number] 250mg Take 1 Univers n 08-01 tablet by ity of (ZITHROMAX 00:00: 04:59 mouth [place] Z-DOMINIK) 250 00 :00 daily for Medi jared mg tablet 5 days. Branch Take 500 mg day 1, then 250 mg days 2 to 5. maalox:diph 2020-0 2020- No [id number] 10mL Take 10 mL Univers enhydrAMINE 08-01 by mouth ity of :lidocaine 00:00: 04:59 as needed [place] 2 % viscous 00 :00 for Oral Medi jared 1:1:1 mucositis Branch for up to 5 days. azithromyci 2020-0 2020- No [id number] 250mg Take 1 Univers n 08-01 tablet by ity of (ZITHROMAX 00:00: 04:59 mouth [place] Z-DOMINIK) 250 00 :00 daily for Medi jared mg tablet 5 days. Branch Take 500 mg day 1, then 250 mg days 2 to 5. maalox:diph 2020-0 2020- No [id number] 10mL Take 10 mL Univers enhydrAMINE 08-01 by mouth ity of :lidocaine 00:00: 04:59 as needed [place] 2 % viscous 00 :00 for Oral Medi jared 1:1:1 mucositis Branch for up to 5 days. azithromyci 2020-0 2020- No [id number] 250mg Take 1 Univers n 08-01 tablet by ity of (ZITHROMAX 00:00: 04:59 mouth [place] Z-DOMINIK) 250 00 :00 daily for Medi jared mg tablet 5 days. Branch Take 500 mg day 1, then 250 mg days 2 to 5. amLODIPine 2020-0 Yes TK 1 T PO Un cookie 10 mg 3-23 QAM. ity of tablet 00:00: Medical Branch amLODIPine 2020-0 Yes TK 1 T PO Un cookie 10 mg 3-23 QAM. ity of tablet 00:00: [place] 00 Medical Branch amLODIPine 2020-0 Yes TK 1 T PO Un cookie 10 mg 3-23 QAM. ity of tablet 00:00: [place] 00 Medical Branch amLODIPine 2020-0 Yes TK 1 T PO Un cookie 10 mg 3-23 QAM. ity of tablet 00:00: [place] 00 Medical Branch amLODIPine 2020-0 Yes TK 1 T PO Un cookie 10 mg 3-23 QAM. ity of tablet 00:00: [place] [facility] amLODIPine 2020-0 Yes TK 1 T PO Un cookie 10 mg 3-23 QAM. ity of tablet 00:00: [place] 00 Medical Branch amLODIPine 2020-0 Yes TK 1 T PO Un cookie 10 mg 3-23 QAM. ity of tablet 00:00: [place] [facility] amLODIPine 2020-0 Yes TK 1 T PO Un cookie 10 mg 3-23 QAM. ity of tablet 00:00: [place] [facility] amLODIPine 2020-0 Yes TK 1 T PO Un cookie 10 mg 3-23 QAM. ity of tablet 00:00: [place] [facility] amLODIPine 2020-0 Yes TK 1 T PO Un cookie 10 mg 3-23 QAM. ity of tablet 00:00: [place] [facility] amLODIPine 2020-0 Yes TK 1 T PO Un cookie 10 mg 3-23 QAM. ity of tablet 00:00: [place] [facility] amLODIPine 2020-0 Yes TK 1 T PO Un cookie 10 mg 3-23 QAM. ity of tablet 00:00: [place] [facility] amLODIPine 2020-0 Yes TK 1 T PO Un cookie 10 mg 3-23 QAM. ity of tablet 00:00: [place] [facility] amLODIPine 2020-0 Yes TK 1 T PO Un cookie 10 mg 3-23 QAM. ity of tablet 00:00: [place] [facility] amLODIPine 2020-0 Yes TK 1 T PO Un cookie 10 mg 3-23 QAM. ity of tablet 00:00: [place] [facility] amLODIPine 2020-0 Yes TK 1 T PO Un cookie 10 mg 3-23 QAM. ity of tablet 00:00: [place] [facility] lisinopril 2020-0 Yes TK 1 T PO Un cookie 40 mg 3-09 QAM ity of tablet 00:00: [place] [facility] pravastatin 2020-0 Yes TK 1 T PO U nivers 20 mg 3-09 QHS ity of tablet 00:00: [place] 00 Medical Branch lisinopril 2020-0 Yes TK 1 T PO Un cookie 40 mg 3-09 QAM ity of tablet 00:00: [place] 00 Medical Branch pravastatin 2020-0 Yes TK 1 T PO U nivers 20 mg 3-09 QHS ity of tablet 00:00: [place] 00 Medical Branch lisinopril 2020-0 Yes TK 1 T PO Un cookie 40 mg 3-09 QAM ity of tablet 00:00: [place] 00 Medical Branch pravastatin 2020-0 Yes TK 1 T PO U nivers 20 mg 3-09 QHS ity of tablet 00:00: [place] [address] Medical Branch lisinopril 2020-0 Yes TK 1 T PO Un cookie 40 mg 3-09 QAM ity of tablet 00:00: [place] [address] Medical Branch pravastatin 2020-0 Yes TK 1 T PO U nivers 20 mg 3-09 QHS ity of tablet 00:00: [place] [address] Medical Branch lisinopril 2020-0 Yes TK 1 T PO Un cookie 40 mg 3-09 QAM ity of tablet 00:00: [place] [address] Medical Branch pravastatin 2020-0 Yes TK 1 T PO U nivers 20 mg 3-09 QHS ity of tablet 00:00: [place] [address] Medical Branch lisinopril 2020-0 Yes TK 1 T PO Un cookie 40 mg 3-09 QAM ity of tablet 00:00: [place] [address] Medical Branch pravastatin 2020-0 Yes TK 1 T PO U nivers 20 mg 3-09 QHS ity of tablet 00:00: [place] [address] Medical Branch lisinopril 2020-0 Yes TK 1 T PO Un cookie 40 mg 3-09 QAM ity of tablet 00:00: [place] [address] Medical Branch pravastatin 2020-0 Yes TK 1 T PO U nivers 20 mg 3-09 QHS ity of tablet 00:00: [place] [address] Medical Branch lisinopril 2020-0 Yes TK 1 T PO Un cookie 40 mg 3-09 QAM ity of tablet 00:00: [place] [address] Medical Branch pravastatin 2020-0 Yes TK 1 T PO U nivers 20 mg 3-09 QHS ity of tablet 00:00: [place] [address] Medical Branch lisinopril 2020-0 Yes TK 1 T PO Un cookie 40 mg 3-09 QAM ity of tablet 00:00: [place] 00 Medical Branch pravastatin 2020-0 Yes TK 1 T PO U nivers 20 mg 3-09 QHS ity of tablet 00:00: [place] 00 Medical Branch lisinopril 2020-0 Yes TK 1 T PO Un cookie 40 mg 3-09 QAM ity of tablet 00:00: [place] [address] Medical Branch pravastatin 2020-0 Yes TK 1 T PO U nivers 20 mg 3-09 QHS ity of tablet 00:00: [place] [address] Medical Branch lisinopril 2020-0 Yes TK 1 T PO Un cookie 40 mg 3-09 QAM ity of tablet 00:00: [place] [address] Medical Branch pravastatin 2020-0 Yes TK 1 T PO U nivers 20 mg 3-09 QHS ity of tablet 00:00: [place] [address] Medical Branch lisinopril 2020-0 Yes TK 1 T PO Un cookie 40 mg 3-09 QAM ity of tablet 00:00: [place] [address] Medical Branch pravastatin 2020-0 Yes TK 1 T PO U nivers 20 mg 3-09 QHS ity of tablet 00:00: [place] [address] Medical Branch lisinopril 2020-0 Yes TK 1 T PO Un cookie 40 mg 3-09 QAM ity of tablet 00:00: [place] [address] Medical Branch pravastatin 2020-0 Yes TK 1 T PO U nivers 20 mg 3-09 QHS ity of tablet 00:00: [place] [address] Medical Branch lisinopril 2020-0 Yes TK 1 T PO Un cookie 40 mg 3-09 QAM ity of tablet 00:00: [place] [address] Medical Branch pravastatin 2020-0 Yes TK 1 T PO U nivers 20 mg 3-09 QHS ity of tablet 00:00: [place] [address] Medical Branch lisinopril 2020-0 Yes TK 1 T PO Un cookie 40 mg 3-09 QAM ity of tablet 00:00: [place] [address] Medical Branch pravastatin 2020-0 Yes TK 1 T PO U nivers 20 mg 3-09 QHS ity of tablet 00:00: [place] [address] Medical Branch lisinopril 2020-0 Yes TK 1 T PO Un cookie 40 mg 3-09 QAM ity of tablet 00:00: [place] [address] Medical Branch pravastatin 2020-0 Yes TK 1 T PO U nivers 20 mg 3-09 QHS ity of tablet 00:00: [place] [facility] metFORMIN 2020-0 Yes TK 2 TS PO Un cookie 500 mg 1-17 BID ity of tablet 00:00: [place] [facility] glimepiride 2020-0 Yes TK 1 T PO U nivers 2 mg tablet 1-17 QPM ity of 00:00: [place] [facility] metFORMIN 2020-0 Yes TK 2 TS PO Un cookie 500 mg 1-17 BID ity of tablet 00:00: [place] [facility] glimepiride 2020-0 Yes TK 1 T PO U nivers 2 mg tablet 1-17 QPM ity of 00:00: [place] [address] Medical Branch metFORMIN 2020-0 Yes TK 2 TS PO Un cookie 500 mg 1-17 BID ity of tablet 00:00: [place] [facility] glimepiride 2020-0 Yes TK 1 T PO U nivers 2 mg tablet 1-17 QPM ity of 00:00: [place] [facility] metFORMIN 2020-0 Yes TK 2 TS PO Un cookie 500 mg 1-17 BID ity of tablet 00:00: [place] [facility] glimepiride 2020-0 Yes TK 1 T PO U nivers 2 mg tablet 1-17 QPM ity of 00:00: [place] [address] Medical [place] metFORMIN 2020-0 Yes TK 2 TS PO Un cookie 500 mg 1-17 BID ity of tablet 00:00: [place] [address] Medical Branch glimepiride 2020-0 Yes TK 1 T PO U nivers 2 mg tablet 1-17 QPM ity of 00:00: [place] [address] Medical Branch metFORMIN 2020-0 Yes TK 2 TS PO Un cookie 500 mg 1-17 BID ity of tablet 00:00: [place] [facility] glimepiride 2020-0 Yes TK 1 T PO U nivers 2 mg tablet 1-17 QPM ity of 00:00: [place] [address] Medical Branch metFORMIN 2020-0 Yes TK 2 TS PO Un cookie 500 mg 1-17 BID ity of tablet 00:00: [place] [address] Medical Branch glimepiride 2020-0 Yes TK 1 T PO U nivers 2 mg tablet 1-17 QPM ity of 00:00: [place] [address] Medical Branch metFORMIN 2020-0 Yes TK 2 TS PO Un cookie 500 mg 1-17 BID ity of tablet 00:00: [place] 00 Medical Branch glimepiride 2020-0 Yes TK 1 T PO U nivers 2 mg tablet 1-17 QPM ity of 00:00: [place] [facility] metFORMIN 2020-0 Yes TK 2 TS PO Un cookie 500 mg 1-17 BID ity of tablet 00:00: [place] 00 Medical Branch glimepiride 2020-0 Yes TK 1 T PO U nivers 2 mg tablet 1-17 QPM ity of 00:00: [place] 00 Medical Branch metFORMIN 2020-0 Yes TK 2 TS PO Un cookie 500 mg 1-17 BID ity of tablet 00:00: [place] [address] Medical Branch glimepiride 2020-0 Yes TK 1 T PO U nivers 2 mg tablet 1-17 QPM ity of 00:00: [place] [address] Medical Branch metFORMIN 2020-0 Yes TK 2 TS PO Un cookie 500 mg 1-17 BID ity of tablet 00:00: [place] [address] Medical Branch glimepiride 2020-0 Yes TK 1 T PO U nivers 2 mg tablet 1-17 QPM ity of 00:00: [place] [address] Medical Branch metFORMIN 2020-0 Yes TK 2 TS PO Un cookie 500 mg 1-17 BID ity of tablet 00:00: [place] [address] Medical Branch glimepiride 2020-0 Yes TK 1 T PO U nivers 2 mg tablet 1-17 QPM ity of 00:00: [place] [address] Medical Branch metFORMIN 2020-0 Yes TK 2 TS PO Un cookie 500 mg 1-17 BID ity of tablet 00:00: [place] [address] Medical Branch glimepiride 2020-0 Yes TK 1 T PO U nivers 2 mg tablet 1-17 QPM ity of 00:00: [place] [address] Medical Branch metFORMIN 2020-0 Yes TK 2 TS PO Un cookie 500 mg 1-17 BID ity of tablet 00:00: [place] [address] Medical Branch glimepiride 2020-0 Yes TK 1 T PO U nivers 2 mg tablet 1-17 QPM ity of 00:00: [place] [address] Medical Branch metFORMIN 2020-0 Yes TK 2 TS PO Un cookie 500 mg 1-17 BID ity of tablet 00:00: [place] [address] Medical Branch glimepiride 2020-0 Yes TK 1 T PO U nivers 2 mg tablet 1-17 QPM ity of 00:00: [place] [address] Medical Branch metFORMIN 2020-0 Yes TK 2 TS PO Un cookie 500 mg 1-17 BID ity of tablet 00:00: [address] glimepiride 2020-0 Yes TK 1 T PO U nivers 2 mg tablet -17 QPM ity of 00:00: [address] metFORMIN metFORMIN No metFORMIN HCl HCl [...] Multivitam n - n - t} in [facility] No Basaglar KwikPen 100 KwikPen 100 KwikPen [...] Multivitam n - n - t} in [facility] No Basaglar KwikPen 100 KwikPen 100 KwikPen [...] Immunizations Ordered Filled Immunization Date Status Comments Sour e Immunization Name Name SARS-COV-2 COVID-19 2020-09-03 Completed Unive rsity of ANGELO/J&J VACCINE 00:00:00 [facility] SARS-COV-2 COVID-19 2020-09-03 Completed Unive rsity of ANGELO/J&J VACCINE 00:00:00 [facility] SARS-COV-2 COVID-19 2020-09-03 Completed Unive rsity of ANGELO/J&J VACCINE 00:00:00 [facility] SARS-COV-2 COVID-19 2020-09-03 Completed Unive rsity of ANGELO/J&J VACCINE 00:00:00 [facility] SARS-COV-2 COVID-19 2020-09-03 Completed Unive rsity of ANGELO/J&J VACCINE 00:00:00 [facility] SARS-COV-2 COVID-19 2020-09-03 Completed Unive rsity of ANGELO/J&J VACCINE 00:00:00 [facility] SARS-COV-2 COVID-19 2020-09-03 Completed Unive rsity of ANGELO/J&J VACCINE 00:00:00 [facility] SARS-COV-2 COVID-19 2020-09-03 Completed Unive rsity of ANGELO/J&J VACCINE 00:00:00 [facility] SARS-COV-2 COVID-19 2020-09-03 Completed Unive rsity of ANGELO/J&J VACCINE 00:00:00 [facility] SARS-COV-2 COVID-19 2020-09-03 Completed Unive rsity of ANGELO/J&J VACCINE 00:00:00 [facility] SARS-COV-2 COVID-19 2020-09-03 Completed Unive rsity of ANGELO/J&J VACCINE 00:00:00 [facility] Vital Signs Vital Name Observation Time Observation Value Comments Source height 2021-05-01 13:00:00 66 [in_i] [facility] weight 2021-05-01 13:00:00 223.8 [lb_av] [facility] temperature 2021-05-01 13:00:00 98.3 [degF] [facility] bmi 2021-05-01 13:00:00 36.12 kg/m2 [facility] oximetry 2021-05-01 13:00:00 97 % [facility] respiratory rate 2021-05-01 13:00:00 18 /min [facility] blood pressure 2021-05-01 13:00:00 135 mm[Hg] [facility] blood pressure 2021-05-01 13:00:00 75 mm[Hg] [facility] Systolic blood 2020-12-11 21:08:00 105 mm[Hg] Univer sity of pressure [place] [facility] Diastolic blood 2020-12-11 21:08:00 45 mm[Hg] Unive rsity of pressure [facility] Heart rate 2020-12-11 21:08:00 79 /min [facility] [place] [facility] Body temperature 2020-12-11 21:08:00 38.83 [place] [facility] ers[facility] [place] [facility] Respiratory rate 2020-12-11 21:08:00 22 /min Univ ersity [facility] [place] [facility] Oxygen saturation in 2020-12-11 21:08:00 98 /min University of Arterial blood by [facility] Pulse oximetry Branch Body height 2020-12-11 18:41:00 167.6 cm [facility] [place] Body weight 2020-12-11 18:41:00 97.07 kg [facility] BMI 2020-12-11 18:41:00 34.54 kg/m2 [facility] Systolic blood 2020-11-28 15:00:00 128 mm[Hg] [facility] Diastolic blood 2020-11-28 15:00:00 67 mm[Hg] [facility] Heart rate 2020-11-28 15:00:00 59 /min [facility] Respiratory rate 2020-11-28 15:00:00 13 /min [facility] Oxygen saturation in 2020-11-28 15:00:00 100 /min [facility]ter[facility] blood by [facility] jared Pulse oximetry Branch Body temperature 2020-11-28 14:50:00 36.33 [facility] Body weight 2020-11-23 17:49:00 102.1 kg [facility] BMI 2020-11-23 17:49:00 36.35 kg/m2 [facility] Systolic blood 2020-11-28 15:00:00 128 mm[Hg] [facility] Diastolic blood 2020-11-28 15:00:00 67 mm[Hg] [facility] Heart rate 2020-11-28 15:00:00 59 /min [facility] Respiratory rate 2020-11-28 15:00:00 13 /min [facility] Oxygen saturation in 2020-11-28 15:00:00 100 /min [facility] [place] [facility] jared Pulse oximetry Branch Body temperature 2020-11-28 14:50:00 36.33 Krystal [facility] Body weight 2020-11-23 17:49:00 102.1 kg [facility] BMI 2020-11-23 17:49:00 36.35 kg/m2 [facility] Systolic blood 2020-11-28 15:00:00 128 mm[Hg] [facility] [place] [facility] Diastolic blood 2020-11-28 15:00:00 67 mm[Hg] [facility] Heart rate 2020-11-28 15:00:00 59 /min [facility] Respiratory rate 2020-11-28 15:00:00 13 /min [facility] Oxygen saturation in 2020-11-28 15:00:00 100 /min [facility] [place] [facility] jared Pulse oximetry Branch Body temperature 2020-11-28 [...] 100 /min [facility] [place] [facility] jared Pulse oximetry Branch Body temperature 2020-11-28 14:50:00 36.33 Krystal [facility] Body weight 2020-11-23 17:49:00 102.1 kg [facility] BMI 2020-11-23 17:49:00 36.35 kg/m2 [facility] Systolic blood 2020-11-14 13:40:00 140 mm[Hg] [facility] [place] [facility] Diastolic blood 2020-11-14 13:40:00 77 mm[Hg] [facility] Heart rate 2020-11-14 13:40:00 73 /min [facility] Respiratory rate 2020-11-14 13:40:00 12 /min [facility] [place] [facility] Oxygen saturation in 2020-11-14 13:40:00 96 /min [facility] [place] [facility] jared Pulse oximetry Branch Body temperature 2020-11-14 12:04:00 36.67 Krystal [facility] Body height 2020-11-09 14:50:00 167.6 cm [facility] Body weight 2020-11-09 14:50:00 102.1 kg [facility] BMI 2020-11-09 14:50:00 36.35 kg/m2 [facility] Systolic blood 2020-11-14 13:40:00 140 mm[Hg] [facility] [place] [facility] Diastolic blood 2020-11-14 13:40:00 77 mm[Hg] [facility] [place] [facility] Heart rate 2020-11-14 13:40:00 73 /min [facility] Respiratory rate 2020-11-14 13:40:00 12 /min [facility] Oxygen saturation in 2020-11-14 13:40:00 96 /min [facility] [place] [facility] j[facility] P[facility] oxim[facility] Body temperature 2020-11-14 12:04:00 36.67 Krystal [facility] Body height 2020-11-09 14:50:00 167.6 cm [facility] Body weight 2020-11-09 14:50:00 102.1 kg [facility] BMI 2020-11-09 14:50:00 36.35 kg/m2 [facility] Systolic blood 2020-11-14 13:40:00 140 mm[Hg] [facility] [place] [facility] Diastolic blood 2020-11-14 13:40:00 77 mm[Hg] [facility] [place] [facility] Heart rate 2020-11-14 13:40:00 73 /min [facility] Respiratory rate 2020-11-14 13:40:00 12 /min [facility] Oxygen saturation in 2020-11-14 13:40:00 96 /min [facility] [place] [facility] jared Pulse oximetry Branch Body temperature 2020-11-14 12:04:00 36.67 Krystal [facility] [place] [facility] Body height 2020-11-09 14:50:00 167.6 cm [facility] Body weight 2020-11-09 14:50:00 102.1 kg [facility] BMI 2020-11-09 14:50:00 36.35 kg/m2 [facility] Systolic blood 2020-11-14 13:40:00 140 mm[Hg] [facility] [place] [facility] Diastolic blood 2020-11-14 13:40:00 77 mm[Hg] [facility] Heart rate 2020-11-14 13:40:00 73 /min [facility] Respiratory rate 2020-11-14 13:40:00 12 /min [facility] Oxygen saturation in 2020-11-14 13:40:00 96 /min [facility] [place] [facility] jared Pulse oxim[facility] Branch Body temperature 2020-11-14 12:04:00 36.67 Krystal [facility] Body height 2020-11-09 14:50:00 167.6 cm [facility] [place] [facility] Body weight 2020-11-09 14:50:00 102.1 kg [facility] BMI 2020-11-09 14:50:00 36.35 kg/m2 [facility] Systolic blood 2019-08-02 13:30:00 127 mm[Hg] [facility] [place] [facility] Diastolic blood 2019-08-02 13:30:00 78 mm[Hg] [facility] [place] [facility] Heart rate 2019-08-02 13:28:00 76 /min [facility] [place] [facility] Body temperature 2019-08-02 13:28:00 36.5 Krystal [facility] [place] [facility] Respiratory rate 2019-08-02 13:28:00 19 /min [facility] [place] [facility] Body height 2019-08-02 13:28:00 167.6 cm [facility] Body weight 2019-08-02 13:28:00 102.059 kg [facility] [place] [facility] BMI 2019-08-02 13:28:00 36.32 kg/m2 [facility] [place] [facility] Oxygen saturation in 2019-08-02 13:28:00 98 /min [facility] blood by [facility] Pulse oximetry Branch Systolic blood 2019-08-02 13:30:00 127 mm[Hg] [facility] [place] [facility] Diastolic blood 2019-08-02 13:30:00 78 mm[Hg] [facility] [place] [facility] Heart rate 2019-08-02 13:28:00 76 /min [facility] Body temperature 2019-08-02 13:28:00 36.5 Krystal [facility] [place] [facility] Respiratory rate 2019-08-02 13:28:00 19 /min [facility] [place] [facility] Body height 2019-08-02 13:28:00 167.6 cm [facility] Body weight 2019-08-02 13:28:00 102.059 kg [facility] [place] [facility] BMI 2019-08-02 13:28:00 36.32 kg/m2 [facility] [place] [facility] Oxygen saturation in 2019-08-02 13:28:00 98 /min [facility] blood by [facility] Pulse oximetry Branch Systolic (mm Hg) 2022-09-09 14:59:00 Trino rial [place] Diastolic (mm Hg) 2022-09-09 14:59:00 Mem o[facility] [place] Heart Rate 2022-09-09 14:59:00 [facility] Height 2022-09-09 14:59:00 5 [ft_i] [facility] Weight 2022-09-09 14:59:00 [facility] BMI Calculated 2022-09-09 14:59:00 Memori al Pro Systolic (mm Hg) 2022-03-11 20:36:00 Trino rial [place] Diastolic (mm Hg) 2022-03-11 20:36:00 Mem o[facility] [place] Heart Rate 2022-03-11 20:36:00 [facility] Height 2022-03-11 20:36:00 5 [ft_i] [facility] [place] Weight 2022-03-11 20:36:00 [facility] BMI Calculated 2022-03-11 20:36:00 Mem[facility] al [place] Systolic (mm Hg) 2021-11-07 20:21:00 Trino rial [place] Diastolic (mm Hg) 2021-11-07 20:21:00 Mem orial Pro Heart Rate 2021-11-07 20:21:00 [facility] [place] Respitory Rate 2021-11-07 20:21:00 Memori al Pro Height 2021-11-07 20:21:00 170.18 cm [facility] [place] Weight 2021-11-07 20:21:00 [facility] BMI Calculated 2021-11-07 20:21:00 [facility] [place] Height 2021-09-16 19:27:00 170.18 cm [facility] Weight 2021-09-16 19:27:00 [facility] BMI Calculated 2021-09-16 19:27:00 Mem[facility] al [place] Systolic (mm Hg) 2021-08-20 20:12:00 Trino rial [place] Diastolic (mm Hg) 2021-08-20 20:12:00 Mem orial [place] Heart Rate 2021-08-20 20:12:00 [facility] Respitory Rate 2021-08-20 20:12:00 [facility] al [place] Height 2021-08-20 20:12:00 167.64 cm [facility] Weight 2021-08-20 20:12:00 [facility] [place] BMI Calculated 2021-08-20 20:12:00 [facility] al [place] Systolic (mm Hg) 2021-06-25 19:14:00 Trino rial Pro Diastolic (mm Hg) 2021-06-25 19:14:00 Mem orial Pro Heart Rate 2021-06-25 19:14:00 [facility] Respitory Rate 2021-06-25 19:14:00 Memori al Pro Height 2021-06-25 19:14:00 162.56 cm [facility] [place] Weight 2021-06-25 19:14:00 [facility] [place] BMI Calculated 2021-06-25 19:14:00 Memori al Pro Systolic (mm Hg) 2020-11-16 20:17:00 Trino rial [place] Diastolic (mm Hg) 2020-11-16 20:17:00 Mem orial Pro Heart Rate 2020-11-16 20:17:00 [facility] Respitory Rate 2020-11-16 20:17:00 Memori al Pro Height 2020-11-16 20:17:00 167.64 cm [facility] Weight 2020-11-16 20:17:00 [facility] BMI Calculated 2020-11-16 20:17:00 Memori al [place] Systolic (mm Hg) 2020-09-28 20:50:00 Trino rial Pro Diastolic (mm Hg) 2020-09-28 20:50:00 Mem orial Pro Heart Rate 2020-09-28 20:50:00 [facility] [place] Respitory Rate 2020-09-28 20:50:00 Memori al Pro Height 2020-09-28 20:50:00 167.64 cm [facility] Weight 2020-09-28 20:50:00 [facility] BMI Calculated 2020-09-28 20:50:00 Memori al Pro Systolic (mm Hg) 2020-06-14 15:23:00 Trino rial Pro Diastolic (mm Hg) 2020-06-14 15:23:00 Mem orial Pro Heart Rate 2020-06-14 15:23:00 [facility] Respitory Rate 2020-06-14 15:23:00 Memori al Pro Height 2020-06-14 15:23:00 167.64 cm [facility] Weight 2020-06-14 15:23:00 [facility] BMI Calculated 2020-06-14 15:23:00 Memori al [place] Systolic (mm Hg) 2019-10-26 19:53:00 Trino rial [place] Diastolic (mm Hg) 2019-10-26 19:53:00 Mem orial Pro Heart Rate 2019-10-26 19:53:00 [facility] [place] Respitory Rate 2019-10-26 19:53:00 Memori al Pro Height 2019-10-26 19:53:00 167.64 cm [facility] [place] Weight 2019-10-26 19:53:00 [facility] BMI Calculated 2019-10-26 19:53:00 Memori al [place] Systolic (mm Hg) 2019-09-28 20:25:00 Trino rial Pro Diastolic (mm Hg) 2019-09-28 20:25:00 Mem orial [place] Heart Rate 2019-09-28 20:25:00 [facility] Respitory Rate 2019-09-28 20:25:00 Mem[facility] al [place] Height 2019-09-28 20:25:00 167.64 cm [facility] Weight 2019-09-28 20:25:00 [facility] [place] BMI Calculated 2019-09-28 20:25:00 Memori al Pro Systolic (mm Hg) 2019-09-23 13:29:00 Trino rial Pro Diastolic (mm Hg) 2019-09-23 13:29:00 Mem orial [place] Heart Rate 2019-09-23 13:29:00 [facility] Respitory Rate 2019-09-23 13:29:00 Memori al [place] Height 2019-09-23 13:29:00 167.64 cm [facility] Weight 2019-09-23 13:29:00 [facility] BMI Calculated 2019-09-23 13:29:00 Memori al [place] Temperature Oral (F) 2019-09-23 13:29:00 97.9 F [facility] Systolic (mm Hg) 2019-09-22 13:28:00 Trino rial [place] Diastolic (mm Hg) 2019-09-22 13:28:00 Mem orial Pro Heart Rate 2019-09-22 13:28:00 [facility] [place] Respitory Rate 2019-09-22 13:28:00 Memori al [place] Temperature Oral (F) 2019-09-22 13:28:00 98.7 F [facility] [place] Height 2019-09-22 13:28:00 167.64 cm [facility] Weight 2019-09-22 13:28:00 [facility] BMI Calculated 2019-09-22 13:28:00 Memori al Pro Procedures Procedure Date / Time Performing Source Performed Clinician [facility] 14:25:00 agent(s) (eg, papaverine, phentolamine) Cystourethroscopy (separate 2021-10-01 Trino Mast procedure) 22:05:00 CONSENT/REFUSAL FOR DIAGNOSIS 2020-12-11 Doctor Unassigned, [facility] T[facility]ATMENT 05:01:00 [facility] PHACOEMULSIFICATION OF 2020-11-28 Tre Louise [facility] CATARACT WITH INTRAOCULAR 14:15:00 Medica l Branch LENS IMPLANT POCT GLUCOSE(AGE >30DAYS) 2020-11-28 Alka Heller [facility] 13:30:00 Medical Branch POCT GLUCOSE(AGE >30DAYS) 2020-11-28 Alka Heller [facility] 13:30:00 Medical Branch COVID-19 (ID NOW RAPID 2020-11-28 Tre Louise [facility] TESTING) 12:51:00 Medical Branch CONSENT/REFUSAL FOR DIAGNOSIS 2020-11-26 Doctor Unassigned, [facility] 20:44:56 [facility] CONSENT/REFUSAL FOR DIAGNOSIS 2020-11-26 Doctor Unassigned, [facility] 20:44:56 [facility] ASSIGNMENT OF BENEFITS 2020-11-26 Doctor Unassigned, [facility] 20:44:20 [facility] ASSIGNMENT OF BENEFITS 2020-11-26 Doctor Unassigned, [facility] 20:44:20 [facility] PHACOEMULSIFICATION OF 2020-11-14 Tre Louise [facility] CATARACT WITH INTRAOCULAR 12:51:00 Medica l Branch LENS IMPLANT POCT GLUCOSE(AGE >30DAYS) 2020-11-[address] [facility] 12:16:00 Medical Branch POCT GLUCOSE(AGE >30DAYS) 2020-11-14 Ariana [facility] 12:16:00 Medical Branch VACCINATIONS - CONSENTS, 2020-11-14 Doctor Unassigned, [facility] ELIGIBILITY, HISTORY 05:01:00 [place] [facility] CBC WITH DIFF 2020-11-05 Tre Louise [facility] 16:24:00 Medical [place] ASSIGNMENT OF BENEFITS 2020-11-05 Doctor Unassigned, [facility] 16:14:55 [place] [facility] POCT GRP A STREP (MOLECULAR) 2019-08-02 Silvia Long Ruth [facility] 13:46:00 [facility] Stent placement [facility] Hand arthroplasty [facility] [place] hernia repair [facility] Cholecystectomy [facility] Encounters Start End Encounter Admission Attending Care Care Encounter Source Date/Time Date/Time Type Type Clinicians Facility Department ID 2021-05-22 [facility] [id number] Common 14:31:19 [place] [facility]ron [facility] 2021-05-22 Outpatient Kattegummul [facility] [id number] Common 14:30:11 [place] padron [facility] 2021-02-25 [id number] Univers 12:04:47 [facility] 2021-02-25 Outpatient Zahraa [facility] OPH [id number] Univers 08:31:28 [facility] 2022-12-30 2022-12-30 Outpatient MHIE MHIE [id number] Memoria 09:15:00 09:15:00 32 l Pro 2022-10-23 2022-10-23 Outpatient JODI TAYLOR [id number] Jodi 10:30:00 10:30:00 VICTOR M zimmer 2022-09-09 2022-09-10 Outpatient MHIE MNA [id number] Memoria 15:15:00 04:59:59 Neurology 31 l Ayush Mast 2022-09-09 2022-09-09 Outpatient YVES Rojas MHMISCHER [id number] 10:15:00 23:59:59 Brett 31 Thien 2022-09-09 2022-09-09 Outpatient MHIE MHIE [id number] Memoria 10:15:00 10:15:00 31 l Pro 2022-09-09 2022-09-09 Outpatient MHIE MHIE [id number] Memoria 10:15:00 10:15:00 31 rafaela Mast 2022-03-11 2022-03-12 Outpatient MHIE MNA [id number] Memoria 21:30:00 05:59:59 Neurology 25 rafaela Mast 2022-03-11 2022-03-12 Outpatient MHIE MNA [id number] Memoria 21:30:00 05:59:59 Neurology 25 rafaela Mast 2022-03-11 2022-03-11 [facility] [id number] 15:30:00 23:59:59 Brett 25 Thien 2022-03-11 2022-03-11 Outpatient MHIE IE [id number] Memoria 15:30:00 15:30:00 25 rafaela Mast 2022-03-03 2022-03-03 [place] [id number] Memoria 20:00:00 20:00:00 Pre-Reg r Urology 29 l Associates [facility] 2022-03-03 2022-03-03 [place] [id number] Memoria 20:00:00 20:00:00 Pre-Reg r Urology 29 l [facility] nn Time Share 2022-03-03 2022-03-03 Outpatient BRAYDON IE [id number] Memoria 14:00:00 14:00:00 29 rafaela Mast 2022-03-03 2022-03-03 Outpatient Abhijeet [facility] [id number] 14:00:00 14:00:00 Carla L 29 2022-02-26 2022-02-26 [place] [id number] Memoria 14:50:00 14:50:00 Pre-Reg r Urology 27 l Associates Mera nn Time Share 2022-02-26 2022-02-26 [place] [id number] Memoria 14:50:00 14:50:00 Pre-Reg r Urology 27 l Associates Mera nn Time Share 2022-02-26 2022-02-26 Outpatient Abhijeet [facility] [id number] 09:50:00 09:50:00 Carla L 27 2022-02-24 2022-02-24 [place] [id number] Memoria 14:00:00 14:00:00 Pre-Reg r Urology 30 l Associates Mera nn Time Share 2022-02-24 2022-02-24 [place] [id number] Memoria 14:00:00 14:00:00 Pre-Reg r Urology 30 l [facility] nn Time Share 2022-02-24 2022-02-24 Outpatient MHIE IE [id number] Memoria 09:00:00 09:00:00 30 l Pro 2022-02-24 2022-02-24 [facility] [id number] 09:00:00 09:00:00 NURSE UATS 30 2022-02-17 2022-02-17 [place] [id number] Memoria 20:00:00 20:00:00 Pre-Reg r Urology 28 l Associates Mera nn Time Share 2022-02-17 2022-02-17 [place] [id number] Memoria 20:00:00 20:00:00 Pre-Reg r Urology 28 l Associates Mera nn Time Share 2022-02-17 2022-02-17 Outpatient MHIE IE [id number] Memoria 15:00:00 15:00:00 28 l Pro 2022-02-17 2022-02-17 [facility] [id number] 15:00:00 15:00:00 NURSE UATS 28 2022-02-17 2022-02-17 Outpatient IE IE [id number] Memoria 13:35:00 13:35:00 27 l Pro 2022-02-14 2022-02-14 [place] [id number] Memoria 14:00:00 14:00:00 Pre-Reg r Urology 26 l Associates Mera nn Time Share 2022-02-14 2022-02-14 [place] [id number] Memoria 14:00:00 14:00:00 Pre-Reg r Urology 26 l Associates Mera nn Time Share 2022-02-14 2022-02-14 [facility] [id number] 09:00:00 09:00:00 NURSE UATS 26 2022-02-07 2022-02-07 Outpatient MHIE IE [id number] Memoria 10:00:00 10:00:00 26 rafaela Mast 2021-11-07 2021-11-08 Outpatient nullFlavo MNA [id number] Memoria 20:30:00 04:59:59 r Neurology 24 l Ayush Mast 2021-11-07 2021-11-08 Outpatient nullFlavo MNA [id number] Memoria 20:30:00 04:59:59 r Neurology 24 l Ayush Mast 2021-11-07 2021-11-07 Outpatient Crystal [facility] [id number] 15:30:00 23:59:59 Brett 24 Thien 2021-11-07 2021-11-07 Outpatient BRAYDON RAYRAY [id number] Memoria 15:30:00 15:30:00 24 rafaela Mast 2021-10-14 2021-10-15 [place] [id number] Memoria 14:00:00 04:59:59 r Urology 23 l Associates Mera nn Time Share 2021-10-14 2021-10-15 [place] [id number] Memoria 14:00:00 04:59:59 r Urology 23 l Associates Mera nn Time Share 2021-10-14 2021-10-14 Outpatient Abhijeet [facility] [id number] 09:00:00 23:59:59 Carla L 23 2021-10-14 2021-10-14 Outpatient BRAYDON BRYSON [id number] Memoria 09:00:00 09:00:00 23 rafaela Mast 2021-10-01 2021-10-02 [place] [id number] Memoria 20:30:00 04:59:59 r Urology 22 l Associates Mera nn Time Share 2021-10-01 2021-10-02 Outpatient nullFlavo [facility] [id number] Memoria 20:30:00 04:59:59 r Urology 22 l Associates Mera nn Time Share 2021-10-01 2021-10-01 Outpatient Abhijeet [facility] [id number] 15:30:00 23:59:59 Carla L 22 2021-10-01 2021-10-01 [place] [id number] Memoria 20:30:00 20:30:00 Pre-Reg r Urology 21 l Willie Tesfaye nn Time Share 2021-10-01 2021-10-01 [place] [id number] Memoria 20:30:00 20:30:00 Pre-Reg r Urology 21 l [facility] nn Time Share 2021-10-01 2021-10-01 Outpatient IE RAYRAY [id number] Memoria 15:30:00 15:30:00 21 rafaela Mast 2021-10-01 2021-10-01 Outpatient RAYRAY RAYRAY [id number] Memoria 15:30:00 15:30:00 22 rafaela Mast 2021-10-01 2021-10-01 Outpatient Abhijeet [facility] [id number] 15:30:00 15:30:00 Carla L 21 2021-09-26 2021-09-26 Ambulatory nullFlavo KYA [id number] Memoria 13:15:00 13:15:00 Pre-Reg r Neurology 19 l Ayush Tavarezann 2021-09-26 2021-09-26 Ambulatory nullFlavo MNA [id number] Memoria 13:15:00 13:15:00 Pre-Reg r Neurology 19 l Ayush Tavarezann 2021-09-26 2021-09-26 Outpatient RAYRAY RAYRAY [id number] Memoria 08:15:00 08:15:00 [place] 2021-09-26 2021-09-26 [id number] 08:15:00 08:15:00 Brett July Neumann 2021-09-16 2021-09-17 Outpatient nullFlavo [facility] Multi [id number] Memoria 19:40:00 04:59:59 r Specialty 20 l [facility] 2021-09-16 2021-09-17 Outpatient nullFlavo [facility] Multi [id number] Memoria 19:40:00 04:59:59 r Specialty 20 l [facility] 2021-09-16 2021-09-16 Outpatient Abhijeet [facility] [id number] 14:40:00 23:59:59 Carla L 20 2021-09-16 2021-09-16 Outpatient MHIE RAYRAY [id number] Memoria 14:40:00 14:40:00 20 rafaela Mast 2021-08-27 2021-08-27 Ambulatory nullFlavo MNA [id number] Memoria 20:00:00 20:00:00 Pre-Reg r Neurology 15 l Ayush Mast 2021-08-27 2021-08-27 Ambulatory nullFlavo MNA [id number] Memoria 20:00:00 20:00:00 Pre-Reg r Neurology 15 l Ayush Tavarezann 2021-08-27 2021-08-27 Outpatient BRAYDON RAYRAY [id number] Memoria 15:00:00 15:00:00 15 l Pro 2021-08-27 2021-08-27 [facility] 911 [id number] 15:00:00 15:00:00 Brett 15 Thien 2021-08-20 2021-08-21 Outpatient nullFlavo MNA [id number] Memoria 20:00:00 04:59:59 r Neurology 18 l Ayush Tavarezann 2021-08-20 2021-08-21 Outpatient nullFlavo MNA [id number] Memoria 20:00:00 04:59:59 r Neurology 18 l Ayush Tavarezann 2021-08-20 2021-08-20 [facility] [id number] 15:00:00 23:59:59 Brett 18 Thien 2021-08-20 2021-08-20 Outpatient MHIE IE [id number] Memoria 15:00:00 15:00:00 18 l [place] 2021-08-07 2021-08-07 Ambulatory nullFlavo MNA [id number] Memoria 14:15:00 14:15:00 Pre-Reg r Neurology 17 l Ayush Mast 2021-08-07 2021-08-07 Ambulatory nullFlavo MNA [id number] Memoria 14:15:00 14:15:00 Pre-Reg r Neurology 17 l Ayush Mast 2021-08-07 2021-08-07 Outpatient MHIE MHIE [id number] Memoria 09:15:00 09:15:00 17 rafaela Mast 2021-08-07 2021-08-07 Outpatient KENYATTA [facility] [id number] 09:15:00 09:15:00 Brett 17 Thien 2021-07-02 2021-07-02 (TEL) STLMLC STLMLC [id number] Co mmon 00:00:00 00:00:00 [facility] 2021-06-25 2021-06-26 Outpatient nullFlavo MNA [id number] Memoria 19:30:00 05:59:59 r Neurology 16 l Ayush [place] 2021-06-25 2021-06-26 Outpatient nullFlavo MNA [id number] Memoria 19:30:00 05:59:59 r Neurology 16 rafaela Peacock [place] 2021-06-25 2021-06-25 [facility] [id number] 13:30:00 23:59:59 Brett 16 Thien 2021-06-25 2021-06-25 Outpatient MHIE MHIE [id number] Memoria 13:30:00 13:30:00 16 rafaela Mast 2021-05-14 2021-05-14 (TEL) STLMLC STLMLC [id number] Co mmon 00:00:00 00:00:00 [facility] 2021-05-01 2021-05-01 OFFICE STLMLC STLMLC [id number] Co mmon 00:00:00 00:00:00 VISIT NEW Spir it PT LEVEL 4 [facility] 2021-03-25 2021-03-25 (TEL) STLMLC STLMLC [id number] Co mmon 00:00:00 00:00:00 [facility] 2021-02-27 2021-02-28 Outpatient nullFlavo MNA [id number] Memoria 14:00:00 04:59:59 r Neurology 14 l Ayush [place] 2021-02-27 2021-02-28 Outpatient nullFlavo MNA [id number] Memoria 14:00:00 04:59:59 r Neurology 14 l Ayush Mast 2021-02-27 2021-02-27 [facility] [id number] 09:00:00 23:59:59 Brett 14 Thien 2021-02-27 2021-02-27 Outpatient MHIE IE [id number] Memoria 09:00:00 09:00:00 14 rafaela Mast 2020-12-28 2020-12-28 Ambulatory nullFlavo MNA [id number] Memoria 20:45:00 20:45:00 Pre-Reg r Neurology 13 l Ayush Mast 2020-12-28 2020-12-28 Ambulatory nullFlavo MNA [id number] Memoria 20:45:00 20:45:00 Pre-Reg r Neurology 13 l Ayush Mast 2020-12-28 2020-12-28 Outpatient MHIE RAYRAY [id number] Memoria 15:45:00 15:45:00 13 rafaela Mast 2020-12-28 2020-12-28 Out[facility] [id number] 15:45:00 15:45:00 Brett 13 Thien 2020-12-11 2020-12-11 Outpatient Zahraa SAHNI [facility] [id number] Univers 13:30:00 13:30:00 ESTIVEN marion of [facility] 2020-12-11 2020-12-11 Nurse Therapy, Adc Covid Infusion [facility] 1.2.840.114 [id number] Univers 11:28:16 12:28:16 Visit Estiven Sahni [id number] ity of [place] [id number] [facility] [id number] [facility] [address] 2020-12-11 2020-12-11 Orders Doctor SALGUERO 1.2.840.114 [id number] Univers 00:00:00 00:00:00 Only Unassigned, KIMBERLY [id number] ity of [place] [facility] [id number] [place] as [id number] [facility] [address] 2020-11-28 2020-11-28 Surgery [facility] 1.2.840.114 [id number] 09:50:00 10:29:00 [place] 350.1.13.10 [place] 4.2.7.2.686 Surgical [phone] [place] 020 2020-11-28 2020-11-28 Surgery [facility] 1.2.840.114 [id number] Univers 09:50:00 10:29:00 Tre A [place] 350.1.13.10 ity of [place].2.[place] [phone] [facility] 020 [place] 2020-11-28 2020-11-28 [facility] 1.2.113.044 [id number] 08:00:00 10:15:[address] [place] 350.1.13.10 [place] 4.2.7.2.686 Surgical [phone] [place] [address] 2020-11-28 2020-11-28 [facility] 1.2.684.459 [id number] Univers 08:00:00 10:15:[address] [place] 350.1.13.10 ity [place] [phone] [facility] 071 [place] 2020-11-28 2020-11-28 Laboratory Only, [facility] 1.2.840.114 [id number] 07:33:14 07:48:14 Only Test [place] 350.1.13.10 [place] 4.2.7.2.686 Jay Em [phone] [facility] 2020-11-28 2020-11-28 Laboratory Only, [facility] Test [facility] 1.2.840. 114 [id number] Univers 07:33:14 07:48:[address] Niyah 350.1.13.1 0 ity of [place] Em [phone] [address] 2020-11-27 2020-11-27 [facility] [id number] Univers 14:15:00 14:15:00 TRE marion of [facility] 2020-11-21 2020-11-21 Laboratory Lab, [facility] 1.2.840.114 [id number] 14:03:01 14:23:01 Only Fam Pob I Health 350.1.13.10 [place] 4.2.7.2.686 Professio [phone] nal [facility] Office Building One 2020-11-21 2020-11-21 Laboratory Lab, [facility] Fam Pob I [facility] 1.2. 840.114 [id number] Univers 14:03:01 14:23:01 Only Christine Gregory [facility] 350.1.13.10 ity of [place] 4.2.7.2.686 [place] Professio [phone] Vt dical [address] Office [address] One 2020-11-21 2020-11-21 Outpatient R KENNETH [facility] [id number] Univers 14:20:00 14:20:00 CHRISTINE ity of [facility] 2020-11-21 2020-11-21 Letter Doctor SALGUERO 1.2.840.114 [id number] 00:00:00 00:00:00 (Out) Unassigned, [place] 350.1.13.10 [facility] 4.2.7.2.686 [phone] [facility] 2020-11-21 2020-11-21 Letter Doctor SALGUERO 1.2.840.114 [id number] 00:00:00 00:00:00 (Out) Unassigned, KIMBERLY 350.1.13.10 [facility] 4.2.7.2.686 [phone] [facility] 2020-11-21 2020-11-21 Letter Doctor JOSE M 1.2.840.114 [id number] Univers 00:00:00 00:00:00 (Out) Unassigned, KIMBERLY 350.1.13.10 ity of [facility] 4.2.7.2.686 [place] as [phone] [address] 2020-11-21 2020-11-21 Letter Doctor SALGUERO 1.2.840.114 [id number] Univers 00:00:00 00:00:00 (Out) Unassigned, KIMBERLY 350.1.13.10 ity of [facility] 4.2.7.2.686 [place] as [phone] [address] 2020-11-16 2020-11-17 Outpatient nullFlavo MNA [id number] Memoria 21:00:00 04:59:59 r Neurology 12 l Ayush Mast 2020-11-16 2020-11-17 Outpatient nullFlavo MNA [id number] Memoria 21:00:00 04:59:59 r Neurology 12 l Ayush Mast 2020-11-16 2020-11-16 [facility] [id number] 16:00:00 23:59:59 Brett 12 [place] 2020-11-16 2020-11-16 Outpatient MHIE MHIE [id number] Memoria 16:00:00 16:00:00 12 rafaela Mast 2020-11-14 2020-11-14 [facility] 1.2.098.374 [id number] 06:55:00 08:58:00 Encounter Tre Linder 350.1.13.10 [place] 4.2.7.2.686 Surgical [phone] [place] [address] 2020-11-14 2020-11-14 [facility] 1.2.174.594 [id number] [facility] 06:55:00 08:58:00 Encounter Tre Linder 350.1.13.10 ity of [place].2.[place] [phone] [facility] [address] [place] 2020-11-14 2020-11-14 [facility] 1.2.840.114 [id number] 08:00:00 08:42:00 Niyah 350.1.13.10 [place] 4.2.7.2.686 Surgical [phone] [place] 020 2020-11-14 2020-11-14 [facility] 1.2.840.114 [id number] Univers 08:00:00 08:42:00 Tre Linder 350.1.13.10 ity of [place]2.[place].2.[place] [phone] [facility] [address] [place] 2020-11-14 2020-11-14 Orders Doctor SALGUERO 1.2.840.114 [id number] 00:00:00 00:00:00 Only Unassigned, KIMBERLY 350.1.13.10 [facility] 4.2.7.2.686 [phone] 2020-11-14 2020-11-14 Orders Doctor JOSE M 1.2.840.114 [id number] [facility] 00:00:00 00:00:00 Only Unassigned, KIMBERLY 350.1.13.10 ity of [facility] 4.2.7.2.686 [place] as [phone] [address] 2020-11-05 2020-11-05 Escrow Representative Vik, [facility] 1.2.840.114 [id number] 11:14:30 11:29:30 Visit Lab Main [place] 350.1.13.10 [place] 4.2.7.2.686 Professio [phone] [address] 2020-11-05 2020-11-05 Escrow Representative Vik, [facility] Lab Main [facility] 1.2.8 40.114 [id number] [facility] 11:14:30 11:29:30 Visit Tre Louise 350.1.13.1 0 ity of [place]2.[place].2.[place] [phone] Vt dical [address] 2020-11-05 2020-11-05 Outpatient R SUSANA [facility] [id number] [facility] 11:15:00 11:15:00 TRE marion [facility] 2020-11-05 2020-11-05 Orders Doctor JOSE M 1.2.840.114 [id number] 00:00:00 00:00:00 Only Unassigned, [place] 350.1.13.10 [facility] 4.2.7.2.686 [id number] [facility] 2020-11-05 2020-11-05 Orders Doctor JOSE M 1.2.840.114 [id number] Univers 00:00:00 00:00:00 Only Unassigned, KIMBERLY 350.1.13.10 ity of [facility] 4.2.7.2.686 [place] as [phone] [address] 2020-09-28 2020-09-29 Outpatient nullFlavo MNA [id number] Memoria 21:00:00 04:59:59 r Neurology 09 l Ayush Mast 2020-09-28 2020-09-29 Outpatient nullFlavo MNA [id number] Memoria 21:00:00 04:59:59 r Neurology 09 l Ayush Mast 2020-09-28 2020-09-28 Outpatient YVES RojasSCHER [id number] 16:00:00 23:59:59 Brett 09 [place] 2020-09-28 2020-09-28 Outpatient MHIE BRAYDON [id number] Memoria 16:00:00 16:00:00 09 rafaela Mast 2020-06-28 2020-06-28 Ambulatory nullFlavo MNA [id number] Memoria 14:15:00 14:15:00 Pre-Reg r Neurology 11 l Ayush Mast 2020-06-28 2020-06-28 Ambulatory nullFlavo MNA [id number] Memoria 14:15:00 14:15:00 Pre-Reg r Neurology 10 l Ayush Mast 2020-06-28 2020-06-28 Ambulatory nullFlavo MNA [id number] Memoria 14:15:00 14:15:00 Pre-Reg r Neurology 10 l Ayush Mast 2020-06-28 2020-06-28 Ambulatory nullFlavo MNA [id number] Memoria 14:15:00 14:15:00 Pre-Reg r Neurology 11 l Ayush Mast 2020-06-28 2020-06-28 Outpatient MHIE BRAYDON [id number] Memoria 08:15:00 08:15:00 11 rafaela Mast 2020-06-28 2020-06-28 Outpatient RAYRAY BRYSON [id number] Memoria 08:15:00 08:15:00 10 rafaela Mast 2020-06-28 2020-06-28 Outpatient YVES RojasSCHER [id number] 08:15:00 08:15:00 Brett 10 [place] 2020-06-28 2020-06-28 Outpatient YVES Rojas MHTARASCHSANAM [id number] 08:15:00 08:15:00 Brett 11 [place] 2020-06-14 2020-06-15 Outpatient nullFlavo MNA [id number] Memoria 15:00:00 05:59:59 r Neurology 08 l Ayush Mast 2020-06-14 2020-06-15 Outpatient nullFlavo MNA [id number] Memoria 15:00:00 05:59:59 r Neurology 08 l Ayush Mast 2020-06-14 2020-06-14 [facility] [id number] 09:00:00 23:59:59 Brett 08 [place] 2020-06-14 2020-06-14 Outpatient MHIE IE [id number] Memoria 09:00:00 09:00:00 08 rafaela Mast 2020-05-04 2020-05-04 Ambulatory nullFlavo MNA [id number] Memoria 15:15:00 15:15:00 Pre-Reg r Neurology 07 l Ayush Mast 2020-05-04 2020-05-04 Ambulatory nullFlavo MNA [id number] Memoria 15:15:00 15:15:00 Pre-Reg r Neurology 07 l Ayush Mast 2020-05-04 2020-05-04 Outpatient MHIE IE [id number] Memoria 09:15:00 09:15:00 07 rafaela Mast 2020-05-04 2020-05-04 [facility] [id number] 09:15:00 09:15:00 Bertt 07 [place] 2020-03-16 2020-03-16 Ambulatory nullFlavo MNA [id number] Memoria 21:45:00 21:45:00 Pre-Reg r Neurology 06 l Ayush Mast 2020-03-16 2020-03-16 Ambulatory nullFlavo MNA [id number] Memoria 21:45:00 21:45:00 Pre-Reg r Neurology 06 l Ayush Tavarezann 2020-03-16 2020-03-16 Outpatient MHIE MHIE [id number] Memoria 15:45:00 15:45:00 06 rafaela Pro 2020-03-16 2020-03-16 Outpatient ALYSON RojasMASCHER [facility] [id number] 15:45:00 15:45:00 Brett 06 [place] 2019-12-21 2019-12-21 Ambulatory nullFlavo MNA [id number] Memoria 18:30:00 18:30:00 Pre-Reg r Neurology 04 l Ayush [place] 2019-12-21 2019-12-21 Ambulatory nullFlavo MNA [id number] Memoria 18:30:00 18:30:00 Pre-Reg r Neurology 04 l Ayush [place] 2019-12-21 2019-12-21 Outpatient MHIE IE [id number] Memoria 13:30:00 13:30:00 04 rafaela [place] 2019-12-21 2019-12-21 [facility] [id number] 13:30:00 13:30:00 Brett 04 Thien 2019-10-26 2019-10-27 Outpatient nullFlavo MNA [id number] Memoria 19:45:00 04:59:59 r Neurology 05 l Ayush [place] 2019-10-26 2019-10-27 Outpatient nullFlavo MNA [id number] Memoria 19:45:00 04:59:59 r Neurology 05 l Ayush [place] 2019-10-26 2019-10-26 [facility] [id number] 14:45:00 23:59:59 Brett Daljit Thien 2019-10-26 2019-10-26 Ambulatory nullFlavo MNA [id number] Memoria 19:45:00 19:45:00 Pre-Reg r Neurology 03 l Ayush [place] 2019-10-26 2019-10-26 Ambulatory nullFlavo MNA [id number] Memoria 19:45:00 19:45:00 Pre-Reg r Neurology 03 l Ayush [place] 2019-10-26 2019-10-26 Outpatient MHIE IE [id number] Memoria 14:45:00 14:45:00 05 rafaela [place] 2019-10-26 2019-10-26 Outpatient ALYSON RojasMASCHER MISCHER [id number] 14:45:00 14:45:00 Brett 03 [place] 2019-10-26 2019-10-26 Outpatient MHIE IE [id number] Memoria 09:45:00 09:45:00 03 rafaela [place] 2019-09-28 2019-09-29 Outpatient nullFlavo MNA [id number] Memoria 20:15:00 04:59:59 r Neurology 02 l Conway [place] 2019-09-28 2019-09-29 Outpatient nullFlavo MNA [id number] Memoria 20:15:00 04:59:59 r Neurology 02 l [place] 2019-09-28 2019-09-28 Outpatient [facility] [id number] 15:15:00 23:59:59 Brett 02 [facility] 2019-09-28 2019-09-28 Outpatient MHIE MHIE [id number] Memoria 15:15:00 15:15:00 02 l [place] 2019-09-23 2019-09-24 Outpatient nullFlavo MNA [id number] Memoria 13:15:00 04:59:59 r Neurology 01 l [facility] 2019-09-23 2019-09-24 Outpatient nullFlavo MNA [id number] Memoria 13:15:00 04:59:59 r Neurology 01 l [facility] 2019-09-23 2019-09-23 Outpatient [facility] [id number] 08:15:00 23:59:59 Brett 01 [facility] 2019-09-23 2019-09-23 Outpatient MHIE MHIE [id number] Memoria 08:15:00 08:15:00 01 l [place] 2019-09-22 2019-09-23 Outpatient nullFlavo MNA [id number] Memoria 15:00:00 04:59:59 r Neurology 00 l [facility] 2019-09-22 2019-09-23 Outpatient nullFlavo MNA [id number] Memoria 15:00:00 04:59:59 r Neurology 00 l [facility] 2019-09-22 2019-09-22 Outpatient ALYSON RojasMASCHER MHMISCHER [id number] 10:00:00 23:59:59 Brett 00 [facility] 2019-09-22 2019-09-22 Outpatient MHIE MHIE [id number] Memoria 10:00:00 10:00:00 00 [facility] 2019-08-04 2019-08-04 JOSE M Dill 1.2.840.114 [id number] 00:00:00 00:00:00 Amita M KIMBERLY 350.1.13.10 [facility] 4.2.7.2.686 [id number] 019 2019-08-04 2019-08-04 Telephone JOSE M Long [id number] 00:00:00 00:00:00 Silvia HARRIS 350.1.13.10 [facility] 4.2.7.2.686 [id number] 019 2019-08-04 2019-08-04 Telephone KathyJOSE M martin 1.2.840.114 [id number] Univers 00:00:00 00:00:00 Amita HARRIS 350.1.13.10 it y of [facility] 4.2.7.2.686 [place] as [phone] [address] 2019-08-04 2019-08-04 Telephone JOSE M Long 1.2.201.256 [id number] Univers 00:00:00 00:00:00 Silvia HARRIS 350.1.13.[address] [facility] 4.2.7.2.686 [place] as [phone] [address] 2019-08-02 2019-08-02 [facility] [id number] Univers 08:40:00 08:40:00 BARBARA marion [facility] 2019-08-02 2019-08-02 Urgent Pob1, Acute [facility] 1.2.840.114 [id number] 08:02:14 08:22:14 [facility] 350.1.13.10 [place] 4.2.7.2.686 Professio [phone] [place] [address] [address] 2019-08-02 2019-08-02 Urgent Pob1, Acute Care [facility] 1. 2.840.114 [id number] Univers 08:02:14 08:22:14 Zuleyka KimelainaBarbara alvarado [facility] 350.1.13.10 ity [facility] 4.2.7.2.686 [place] Professio [phone] [address] Office [address] One Results Test Description Test Time Test Comments Results Result Comments Source POCT Glucose 2020-11-28 13:30:00 Test Item Value Reference Range Interpretation Comme nts POCT Glu (age>30days) (test code = 3342) 101 mg/dL 70-110 [facility] [id number] 13:30:00 Test Item Value Reference Range Interpretation Comments POCT Glu (age>30days) (test code = 101 mg/dL 70-110 3342) [facility]APID [facility])2020-11-28 13:07:35 Test Item Value Reference Range Interpretation Comments SARS-CoV-2 Rapid ID NOW Not Detected Not Detected (test code = 62100-3) CHRISTINE (test code = CHRISTINE) ID NOW COVID-19 Assay is an isothermal nucleic acid amplification test intended for the qualitative detection of nucleic acid from SARS-CoV-2 viral RNA in nasopharyngeal (STUDENT SUCCESS ADVISOR) specimens. It is used under Emergency Use [...] indicated. Lab Interpretation Normal (test code = 43239-3) [facility] [id number] 12:16:00 Test Item Value Reference Range Interpretation Comments POCT Glu (age>30days) (test code = 1226 mg/dL 70-110 A 3342) Lab Interpretation (test code = Abnormal 23200-9) [facility] [id number] 12:16:00 Test Item Value Reference Range Interpretation Comments POCT Glu (age>30days) (test code = 1226 mg/dL 70-110 A 3342) Lab Interpretation (test code = Abnormal 91443-7) [facility] [id number] 16:31:33 Test Item Value Reference Range Interpretation [...] RDW-SD (test code = 43.9 fL 38.5-51.6 75918-1) RDW-CV (test code = 13.7 % 12.1-15.4 788-0) PLT (test code = See_Comment [Automated 777-3) message] The sy stem which generated this result transmitted reference range : 150 - 328 10*3/ ?L. The reference r alexandra was not used to interpret this result as normal/abnormal . MPV (test code = 9.7 fL 9.8-13.0 L 66821-8) NRBC/100 WBC (test See_Comment [Automat ed code = 8500812071) message] The system which generated this result transmitted reference range : 0.0 - 10.0 /100 WBCs. The refer ence range was not u sed to interpret th is result as normal/abnormal . NRBC x10^3 (test code <0.01 See_Comment [Auto mated = [id number]) message] The s ystem which generated this result transmitted reference range : 10*3/?L. The reference range was not used to interpret this result as normal/abnormal . GRAN MAT (NEUT) % 66.1 % (test code = 770-8) IMM GRAN % (test code 0.50 % = 1732583272) LYMPH % (test code = 21.0 % 736-9) MONO % (test code = 8.9 % 5905-5) EOS % (test code = 3.0 % 713-8) BASO % (test code = 0.5 % 706-2) GRAN MAT x10^3(ANC) 4.99 10*3/uL 1.99-6.95 (test code = 6193040771) IMM GRAN x10^3 (test 0.04 10*3/uL 0.00-0.06 code = 0834728490) LYMPH x10^3 (test code 1.59 10*3/uL 1.09-3.23 = 731-0) MONO x10^3 (test code 0.67 10*3/uL 0.36-1.02 = 742-7) EOS x10^3 (test code = 0.23 10*3/uL 0.06-0.53 711-2) BASO x10^3 (test code 0.04 10*3/uL 0.01-0.09 = 704-7) Lab Interpretation Abnormal (test code = 96620-2) [facility] ([facility]LECULAR)2019-08-02 13:46:00 Test Item Value Reference Range Interpretation Comments POCT GP A STREP (test code = Negative Negative - Negative 87137-1) Lab Interpretation (test code = Normal 65170-4) [facility]
--- NOTE | 2022-10-29 17:02 | RAD REPORT ---
EXAM DESCRIPTION: Eric Single View10/29/2022 4:48 pm CLINICAL HISTORY: Chest pain COMPARISON: June 2022 FINDINGS: The lungs appear clear of acute infiltrate. The heart is normal size IMPRESSION: No acute abnormalities displayed
[2022-10-29 17:09] LABS: Absolute Lymphocytes (CBC) 1.8 K/uL (0.7-4.9); Lymphocytes % 20.9 % (15.3-44.8); MCV 84.2 fL (80-100); MPV 8.1 fL (7.6-11.3); RBC Red Blood Cell Count 4.75 M/uL (4.33-5.43)
[2022-10-29 17:36] LABS: Potassium 4.1 mEq/L (3.5-5.1); Troponin High Sensitivity 5.2 pg/mL (<58.9)
--- NOTE | 2022-10-29 17:48 | EDPHYS ---
Physician Documentation [facility] Name: Alec Ortiz Jr Age: 67 yrs Sex: Male : 1955 Arrival Date: 10/29/2022 Time: 16:26 Bed 8 Private MD: ED Physician Cristi Dooley HPI: 10/29 16:47 This 67 yrs old Male presents to ER via Ambulatory with complaints of Chest ms3 Pain. 16:47 67-year-old male with past medical history of diabetes, hypertension, COPD, neuropathy, ms3 hyperlipidemia presents for chest pain that has been ongoing for 3 days. Patient states the pain is pressure with intermittent sharp pain. Patient rates the pain a 6/10. Patient endorses shortness of breath and cough. Patient denies nausea or vomiting. Patient denies alleviating or inciting factors. 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 Historical: - Allergies: 16:33 Codeine; ld1 16:33 PENICILLINS; ld1 - Home Meds: 19:46 lisinopril 10 mg Oral tablet 1 tabs daily [Active]; glimepiride 4 mg Oral tablet 1 tab nj1 daily [Active]; Rybelsus 7 mg oral tablet 1 tab daily [Active]; Breztri Aerosphere 160-9-4.8 mcg/actuation inhalation HFA Aerosol Inhaler 2 times per day [Active]; Plavix 75 mg Oral tablet 1 tab daily [Active]; isosorbide mononitrate 30 mg Oral Tablet, Extended Release 24 hr 1 tab every morning [Active]; aspirin 81 mg Oral tablet,chewable 1 tab daily [Active]; Albuterol Inhl [Active]; baclofen 10 mg Oral tablet 1 tabs 2 times per day [Active]; Cymbalta 60 mg oral capsule,delayed release (e.c.) 1 cap HS [Active]; gabapentin 400 mg oral capsule 1 cap 2 times per day [Active]; Lipitor 40 mg Oral tablet 1 tab every day at bedtime [Active]; Singulair 10 mg Oral tablet 1 tab every day at bedtime [Active]; Zyrtec 10 mg Oral capsule 1 cap once daily at bedtime [Active]; - PMHx: 16:33 Diabetes - NIDDM; Hypertension; COPD; neuropathy; ld1 - PSHx: 16:33 Heart stents; Cholecystectomy; Hernia repair; ld1 - Immunization history:: Adult Immunizations up to date, Client reports receiving the 2nd dose of the Covid vaccine. - Social history:: Smoking status: Patient denies any tobacco usage or history of. Patient/guardian denies using alcohol. ROS: 16:47 Constitutional: Negative for fever, and chills. Neck: Negative for injury, pain, and ms3 swelling. 16:47 Respiratory: Negative for shortness of breath, cough, wheezing, and pleuritic chest pain, Abdomen/GI: Negative for abdominal pain, nausea, vomiting, diarrhea, and constipation, MS/Extremity: Negative for injury and deformity, Skin: Negative for injury, rash, and discoloration. 16:47 Cardiovascular: Positive for chest pain. 16:47 All other systems are negative. Exam: 16:47 Constitutional: This is a well developed, well nourished patient who is awake, alert, ms3 and in no acute distress. Head/Face: Normocephalic, atraumatic. Neck: Trachea midline, no cervical lymphadenopathy. Supple, full range of motion without nuchal rigidity, or vertebral point tenderness. No Meningismus. Chest/axilla: Normal chest wall appearance and motion. Nontender with no deformity. Cardiovascular: Regular rate and rhythm with a normal S1 and S2. No gallops, murmurs, or rubs. Normal PMI, no JVD. No pulse deficits. Respiratory: Lungs have equal breath sounds bilaterally, clear to auscultation and percussion. No rales, rhonchi or wheezes noted. No increased work of breathing, no retractions or nasal flaring. Abdomen/GI: Soft, non-tender, with normal bowel sounds. No distension or tympany. No guarding or rebound. No evidence of tenderness throughout. Skin: Warm, dry with normal turgor. Normal color with no rashes, no lesions, and no evidence of cellulitis. MS/ Extremity: Pulses equal, no cyanosis. Neurovascular intact. Full, normal range of motion. 16:50 ECG was reviewed by the Attending Physician. ms3 Vital Signs: 16:33 BP 134 / 78; Pulse 85; Resp 18; Temp 98.2(O); Pulse Ox 97% on R/A; Weight 99.79 kg; ld1 Height 5 ft. 5 in. ; Pain 5/10; 17:55 BP 122 / 66; Pulse 65; Resp 18; Pulse Ox 99% on R/A; Pain 3/10; nj1 19:05 BP 133 / 73; Pulse 68; Resp 17; Pulse Ox 99% ; Pain 3/10; nj1 20:00 BP 108 / 51; Pulse 73; Resp 19; Pulse Ox 99% on R/A; Pain 3/10; nj1 16:33 Body Mass Index 36.61 (99.79 kg, 165.1 cm) ld1 16:33 Pain Scale: Adult ld1 17:55 Pain Scale: Adult nj1 19:05 Pain Scale: Adult nj1 20:00 Pain Scale: Adult nj1 MDM: 16:47 Patient medically screened. ms3 16:47 Differential diagnosis: abnormal EKG, acute myocardial infarction, pneumonia, ms3 pneumothorax. 18:01 HEART Score: History: Slightly Suspicious (0), ECG: Normal (0), Age: > or = 65 years ms3 (2), Risk Factors: > or = 3 Risk factors for atherosclerotic disease (2), Troponin: < or = 1 x Normal Limit (0), Total Score = 4. The patient was given aspirin in the Emergency Department. Data reviewed: vital signs, nurses notes, lab test result(s), EKG, radiologic studies, and as a result, I will admit patient. Consideration of Admission/Observation Patient was admitted/placed on observation. Management of patient was discussed with the following: Hospitalist: Douglas Munroe NP, on behalf of Dr Ray. Executor Of Estate: Dr Duarte- will consult. I considered the following discharge prescriptions or medication management in the emergency department Medications were administered in the Emergency Department. See MAR. Independent interpretation of the following test(s) in the Emergency Department EKG: See my EKG interpretation above media monitor: rate is 65 beats/min, Rhythm is normal sinus rhythm, regular, with no ectopy, Interpretation: normal rate, normal rhythm. Counseling: I had a detailed discussion with the patient and/or guardian regarding: the historical points, exam findings, and any diagnostic results supporting the discharge/admit diagnosis, lab results, radiology results, the need for outpatient follow up, to return to the emergency department if symptoms worsen or persist or if there are any questions or concerns that arise at home. ED course: Discussed Dr. Allen's recommendation for patient to be placed in observation with troponin trends. Patient and his understand and agree with plan. All questions were answered. Return precautions discussed include worsening symptoms, or any other concerns. 10/29 16:36 Order name: Basic Metabolic Panel; Complete Time: 17:44 ld1 10/29 16:36 Order name: CBC with Diff; Complete Time: 17:24 ld1 10/29 16:36 Order name: Troponin HS; Complete Time: 17:44 ld1 10/29 16:49 Order name: BNP; Complete Time: 18:54 ms3 10/29 18:03 Order name: DD; Complete Time: 18:54 la1 10/29 16:36 Order name: XRAY Chest (1 view); Complete Time: 17:15 ld1 10/29 16:36 Order name: EKG; Complete Time: 16:37 ld1 10/29 16:36 Order name: Cardiac monitoring; Complete Time: 17:54 ld1 10/29 16:36 Order name: EKG - Nurse/Tech; Complete Time: 16:36 ld1 10/29 16:36 Order name: IV Saline Lock; Complete Time: 17:56 ld1 10/29 16:36 Order name: Labs collected and sent; Complete Time: 17:56 ld1 10/29 16:36 Order name: O2 Per Protocol; Complete Time: 16:36 ld1 10/29 16:36 Order name: O2 Sat Monitoring; Complete Time: 16:36 ld1 EC:50 Rate is 83 beats/min. Rhythm is regular. QRS [place] is Normal. SC interval is normal. QRS ms3 interval is normal. QT interval is normal. Clinical impression: Normal ECG. Interpreted by me. Reviewed by me. Administered Medications: 19:03 Drug: Aspirin PO Chewable Tablet 324 mg Route: PO; nj1 20:47 Drug: Acetaminophen PO 650 mg Route: PO; nj1 Disposition Summary: 10/29/22 17:47 Hospitalization Ordered Hospitalization Status: Observation ms3 Provider: Ralph Ray ms3 Location: Telemetry/MedSurg (observation) ms3 Condition: Stable ms3 Problem: new ms3 Symptoms: are unchanged ms3 Bed/Room [facility]: [facility] Room Assignment: 232(10/29/22 19:46) cg Diagnosis - Chest pain, unspecified ms3 - Anemia, unspecified ms3 Forms: - Medication Reconciliation Form ms3 - SBAR form ms3 Signatures: Dispatcher [employer] EDDouglas Vora, BALANCING MACHINE OPERATOR-C BALANCING MACHINE OPERATOR-Cla1 Radha Jacobs RN RN cg Cristi Dooley, DO ms3 Cary Dooley RN RN ld1 Moon Warren RN RN nj1 Corrections: (The following items were deleted from the chart) 19:46 17:47 ms3 cg
--- NOTE | 2022-10-29 17:48 | ER ---
Nurse's Notes [facility] Name: Alec Ortiz Jr Age: 67 yrs Sex: Male : 1955 Arrival Date: 10/29/2022 Time: 16:26 Bed 8 Private MD: Diagnosis: Chest pain, unspecified;Anemia, unspecified Presentation: 10/29 16:33 Chief complaint: Patient states: Chest pain began 2 days ago. 30 min ago pain became ld1 severe. Coronavirus screen: At this time, the client does not indicate any symptoms associated with coronavirus-19. Ebola Screen: No symptoms or risks identified at this time. Initial Sepsis Screen: Does the patient meet any 2 criteria? No. Patient's initial sepsis screen is negative. Does the patient have a suspected source of infection? No. Patient's initial sepsis screen is negative. Risk Assessment: Do you want to hurt yourself or someone else? Patient reports no desire to harm self or others. Onset of symptoms was October 29, 2022. 16:33 Method Of Arrival: Ambulatory ld1 16:33 Acuity: WILLA 3 ld1 Triage Assessment: 16:33 General: Appears in no apparent distress. uncomfortable, Behavior is calm, cooperative, ld1 appropriate for age. Pain: Complains of pain in chest Pain does not radiate. Pain currently is 8 out of 10 on a pain scale. Quality of pain is described as throbbing. EENT: No signs and/or symptoms were reported regarding the EENT system. Neuro: Level of Consciousness is awake, alert, obeys commands, Oriented to person, place, time, situation. Cardiovascular: Capillary refill < 3 seconds Patient's skin is warm and dry. Rhythm is sinus rhythm. Respiratory: Airway is patent Respiratory effort is even, unlabored. GI: Abdomen is round non-distended. : No signs and/or symptoms were reported regarding the genitourinary system. Derm: No signs and/or symptoms reported regarding the dermatologic system. Musculoskeletal: No signs and/or symptoms reported regarding the musculoskeletal system. Historical: - Allergies: 16:33 Codeine; ld1 16:33 PENICILLINS; ld1 - Home Meds: 19:46 lisinopril 10 mg Oral tablet 1 tabs daily [Active]; glimepiride 4 mg Oral tablet 1 tab nj1 daily [Active]; Rybelsus 7 mg oral tablet 1 tab daily [Active]; Breztri Aerosphere 160-9-4.8 mcg/actuation inhalation HFA Aerosol Inhaler 2 times per day [Active]; Plavix 75 mg Oral tablet 1 tab daily [Active]; isosorbide mononitrate 30 mg Oral Tablet, Extended Release 24 hr 1 tab every morning [Active]; aspirin 81 mg Oral tablet,chewable 1 tab daily [Active]; Albuterol Inhl [Active]; baclofen 10 mg Oral tablet 1 tabs 2 times per day [Active]; Cymbalta 60 mg oral capsule,delayed release (e.c.) 1 cap HS [Active]; gabapentin 400 mg oral capsule 1 cap 2 times per day [Active]; Lipitor 40 mg Oral tablet 1 tab every day at bedtime [Active]; Singulair 10 mg Oral tablet 1 tab every day at bedtime [Active]; Zyrtec 10 mg Oral capsule 1 cap once daily at bedtime [Active]; - PMHx: 16:33 Diabetes - NIDDM; Hypertension; COPD; neuropathy; ld1 - PSHx: 16:33 Heart stents; Cholecystectomy; Hernia repair; ld1 - Immunization history:: Adult Immunizations up to date, Client reports receiving the 2nd dose of the Covid vaccine. - Social history:: Smoking status: Patient denies any tobacco usage or history of. Patient/guardian denies using alcohol. Screenin:58 [facility] ED Fall Risk Assessment (Adult) History of falling in the last 3 months, nj1 including since admission No falls in past 3 months (0 pts) Confusion or Disorientation No (0 pts) Intoxicated or Sedated No (0 pts) Impaired Gait No (0 pts) Mobility Assist Device Used No (0 pt) Altered Elimination No (0 pt) Score/Fall Risk Level 0 - 2 = Low Risk Oriented to surroundings, Maintained a safe environment, Hourly rounding (assess needs \T\ fall precautionary measures) done. Abuse screen: Denies threats or abuse. Denies injuries from another. Nutritional screening: No deficits noted. Tuberculosis screening: No symptoms or risk factors identified. Assessment: 17:57 General: Appears in no apparent distress. uncomfortable, Behavior is calm, cooperative, nj1 appropriate for age. Pain: Complains of pain in chest Pain currently is 3 out of 10 on a pain scale. Pain began 2 hours ago. Pain: Complains of pain in chest Pain currently is 3 out of 10 on a pain scale. Pain began 2 hours ago. Neuro: Level of Consciousness is awake, alert, obeys commands, Oriented to person, place, time, situation. Cardiovascular: Reports chest pain, Patient's skin is warm and dry. Respiratory: Airway is patent Respiratory effort is even, unlabored. 19:05 Reassessment: Patient appears in no apparent distress at this time. Patient and/or nj1 family updated on plan of care and expected duration. Pain level reassessed. Patient is alert, oriented x 3, equal unlabored respirations, skin warm/dry/pink. 20:00 Reassessment: Patient appears in no apparent distress at this time. Patient and/or nj1 family updated on plan of care and expected duration. Pain level reassessed. Patient is alert, oriented x 3, equal unlabored respirations, skin warm/dry/pink. Vital Signs: 16:33 BP 134 / 78; Pulse 85; Resp 18; Temp 98.2(O); Pulse Ox 97% on R/A; Weight 99.79 kg; ld1 Height 5 ft. 5 in. ; Pain 5/10; 17:55 BP 122 / 66; Pulse 65; Resp 18; Pulse Ox 99% on R/A; Pain 3/10; nj1 19:05 BP 133 / 73; Pulse 68; Resp 17; Pulse Ox 99% ; Pain 3/10; nj1 20:00 BP 108 / 51; Pulse 73; Resp 19; Pulse Ox 99% on R/A; Pain 3/10; nj1 16:33 Body Mass Index 36.61 (99.79 kg, 165.1 cm) ld1 16:33 Pain Scale: Adult ld1 17:55 Pain Scale: Adult nj1 19:05 Pain Scale: Adult nj1 20:00 Pain Scale: Adult nj1 ED Course: 16:27 Patient arrived in ED. rg4 16:27 Cristi Dooley DO is Attending Physician. ms3 16:33 Arm band placed on right wrist. EKG completed in triage. Results shown to MD. ld1 16:35 Triage completed. ld1 16:50 XRAY Chest (1 view) In Process Unspecified. EDMS 17:39 Moon Warren, RN is Primary Nurse. nj1 17:47 Ralph Ray MD is Hospitalizing Provider. ms3 17:56 IV is intact, 22 g, right hand.. nj1 17:58 Patient has correct armband on for positive identification. Bed in low position. Call [facility] light in reach. Adult w/ patient. Client placed on continuous cardiac and pulse oximetry monitoring. NIBP monitoring applied. 17:59 Patient maintains SpO2 saturation greater than 95% on room air. nj1 20:55 No provider procedures requiring assistance completed. Patient admitted, IV remains in [facility] place. Administered Medications: 19:03 Drug: Aspirin PO Chewable Tablet 324 mg Route: PO; nj1 20:47 Drug: Acetaminophen PO 650 mg Route: PO; nj1 Medication: 20:56 VIS not applicable for this client. nj1 Outcome: 17:47 Decision to Hospitalize by Provider. ms3 20:52 Admitted to Med/surg accompanied by tech, via wheelchair, room 232, Report called to [facility] Nurse Maureen 20:52 Condition: stable 20:52 Instructed on the need for admit. 20:59 Patient left the ED. [facility] Signatures: Dispatcher [employer] EDMS Magdalena Jacobs rg4 Cristi Dooley, DO ms3 Cary Dooley, RN RN ld1 Moon Warren, RN RN nj Corrections: (The following items were deleted from the chart) 18:23 17:56 IV nj nj
[2022-10-29] MEDS ORDERED: ASPIRIN 81 MG CHEWABLE TABLET ONE (19:11)
--- NOTE | 2022-10-29 20:04 | P.HP ---
Certification for Inpatient Patient admitted to: Observation With expected LOS: <2 Midnights Patient will require the following post-hospital care: None Practitioner: I am a practitioner with admitting privileges, knowledge of patient current condition, hospital course, and medical plan of care. Services: Services provided to patient in accordance with Admission requirements found in Title 42 Section 412.3 of the Code of Federal Regulations Patient History Date of Service: 10/29/22 Reason for admission: ACS rule out History of Present Illness: 67-year-old male with history of insulin-dependent diabetes, hypertension, COPD, CAD with previous stents presents the emergency department with chief complaint of chest pain. He reports intermittent chest pain over the course of the last 2 days, his episode today started after power washing, pain is described as "getting hit in the chest" does radiate to his back and was associated with some mild shortness of breath and nausea, denies diaphoresis. He called his weigh tank operator who is Dr. Vivas who recommended he come to the emergency department for evaluation. He was evaluated in the emergency department his initial high-sensitivity troponin is 5.2, D-dimer 280, EKG without STEMI criteria present. Feeling better at this time. ED provider wishes to admit under observation for ACS rule out. Allergies Penicillins Allergy (Severe, Verified 02/25/22 14:04) CONVULSIONS codeine [Codeine] Allergy (Intermediate, Verified 02/25/22 14:04) AMS Home Medications: Metformin HCl [Glucophage*] 500 mg PO BID 11/04/13 Baclofen [Lioresal*] 10 mg PO DAILY 06/01/20 Duloxetine HCl [Cymbalta] 60 mg PO BEDTIME 06/01/20 Gabapentin 300 mg PO BID 06/01/20 Glimepiride 4 mg PO DAILY 06/01/20 Insulin Glargine,Hum.rec.anlog [Basaglar Kwikpen U-100] 25 unit SQ BEDTIME 06/01/20 Lisinopril [Zestril] 40 mg PO DAILY 06/01/20 Aspirin [Aspirin EC 81 MG] 81 mg PO DAILY 30 Days #30 tablet. 06/04/20 Atorvastatin Calcium [Lipitor] 1 tab PO DAILY 02/25/22 Clopidogrel Bisulfate [Plavix] 1 tab PO DAILY 02/25/22 Tamsulosin HCl [Flomax] 1 tab PO BEDTIME 02/25/22 Isosorbide Mononitrate [Isosorbide Mononitrate ER] 30 mg PO BEDTIME 03/28/22 Tramadol HCl/Acetaminophen [Ultracet Tablet] 1 each PO Q6H PRN #1 04/02/22 - Past Medical/Surgical History Diabetic: Yes -: DM -: HTN -: Diverticulitis -: anxiety -: CAD -: COPD -: behind right ear -: back surgery -: cholecystectomy -: hernia surgery x2 -: pilonidal cyst Psychosocial/ Personal History: Patient is retired, lives at home with his spouse - Family History Mother -: Diabetes, Kidney disease Notes: glaucoma, cholecystectomy Father -: Heart disease, Diabetes, Kidney disease Notes: glaucoma - Social History Smoking Status: Never smoker Alcohol use: Yes CD- Drugs: No Caffeine use: Yes Review of Systems 10-point ROS is otherwise unremarkable Respiratory: Shortness of Breath Cardiovascular: Chest Pain Gastrointestinal: Nausea Physical Examination - Physical Exam General: Alert, In no apparent distress, Oriented x3 HEENT: Atraumatic, PERRLA, Mucous membr. moist/pink, EOMI, Sclerae nonicteric Neck: Supple, 2+ carotid pulse no bruit, No LAD, Without JVD or thyroid abnormality Respiratory: Clear to auscultation bilaterally, Normal air movement Cardiovascular: Regular rate/rhythm, Normal S1 S2 Capillary refill: <2 Seconds Gastrointestinal: Normal bowel sounds, No tenderness Musculoskeletal: No tenderness Integumentary: No rashes Neurological: Normal gait, Normal speech, Normal strength at 5/5 x4 extr, Normal tone, Normal affect Lymphatics: No axilla or inguinal lymphadenopathy - Studies Laboratory Data (last 24 hrs) 10/29/22 16:59: WBC 8.80, Hgb 13.2 L, Hct 40.0, Plt Count 235 10/29/22 16:59: Sodium 137, Potassium 4.1, BUN 12, Creatinine 1.08, Glucose 152 H Assessment and Plan - Plan Assessment: Chest pain rule out ACShistory of CAD Diabetes mellitus type 2insulin-dependent Hypertension COPD Plan: Chest pain rule out ACShistory of CAD Trend troponins, monitor on telemetry, cardiology consult in place. Given aspirin in ED. Obtain and continue other home medications. D-dimer negative. Last heart catheterization approximately 2 years ago has had 2 stents placed. Diabetes mellitus type 2insulin-dependent ACHS Accu-Chek, sliding scale insulin. Reports recent A1c was 7. Hypertension Obtain and continue home medications COPD As needed nebulizer treatments. DVT PPX: Lovenox Code status: Full Discharge Plan: Home Plan to discharge in: 24 Hours - Advance Directives Does patient have a Living Will: No Does patient have a Durable POA for Healthcare: No - Code Status/Comfort Care Code Status Assessed: Yes (Full code) Critical Care: No Time Spent Managing Pts Care (In Minutes): 55
[2022-10-29] MEDS ORDERED: ACETAMINOPHEN 325 MG TABLET ONE (20:53)
[2022-10-29] MEDS ORDERED: MORPHINE 2 MG/ML SYR IV PRN (21:03)
[2022-10-29] MEDS: INSULIN -REGULAR HUMAN 50 UNIT/0.5 ML ML SQ SCH (21:03)
[2022-10-29] MEDS ORDERED: MONTELUKAST 10 MG TAB PO SCH (21:03)
[2022-10-29] MEDS ORDERED: ONDANSETRON 4 MG/2 ML VIAL IV PRN (21:03)
[2022-10-29] MEDS ORDERED: CETIRIZINE HCL 5 MG TABLET PO PRN (21:03)
[2022-10-29] MEDS ORDERED: ATORVASTATIN 40 MG TAB PO SCH (21:03)
[2022-10-29] MEDS ORDERED: DULOXETINE 30 MG CAP PO SCH (21:03)
[2022-10-29 21:06] VITALS: O2SAT 99
[2022-10-29] MEDS: GABAPENTIN 400 MG CAP PO SCH (21:34)
[2022-10-29] MEDS: BACLOFEN 10 MG TAB PO SCH (21:34)
[2022-10-29] MEDS: NITROGLYCERIN 0.4 MG/TAB SL PRN (21:35)
[2022-10-29 22:18] VITALS: BMI 35.3
[2022-10-30 03:10] LABS: Absolute Lymphocytes (CBC) 2.2 K/uL (0.7-4.9); Hematocrit 39.9 % (39.6-49.0); Lymphocytes % 25.4 % (15.3-44.8); MCV 85.2 fL (80-100); MPV 8.2 fL (7.6-11.3); RBC Red Blood Cell Count 4.68 M/uL (4.33-5.43)
[2022-10-30 03:30] LABS: Potassium 3.9 mEq/L (3.5-5.1)
[2022-10-30] MEDS ORDERED: POTASSIUM CL SA 10 MEQ TAB PO ONE (06:00)
--- NOTE | 2022-10-30 07:17 | P.PN ---
Date of Service: 10/30/22 Subjective: ROS: 10 point ROS as noted above, otherwise negative Physical Exam: GEN: Alert, oriented, NAD HEENT: Normal conjunctiva, sclera anicteric CV: Regular rate and rhythm, no edema Pulm: Nonlabored respirations on room air ABD: Soft, nontender, nondistended MSK: No joint tenderness Integumentary: No rashes Neuro: Normal speech, normal affect vitals reviewed Problem List: Chest pain hx of CAD IDDM2 Hypertension COPD Chest pain hx of CAD Last heart catheterization approximately 2 years ago has had 2 stents placed. troponins negative x3, monitor on telemetry D-dimer negative cardiology consulted. Given aspirin in ED. confirm and restart other home medications IDDM2 ACHS Accu-Chek, sliding scale insulin. Reports recent A1c was 7 . Hypertension confirm and restart other home medications COPD As needed nebulizer treatments. VTE: Lovenox Code: Full Dispo: Home
[2022-10-30 07:29] LABS: Specific Gravity 1.013 (1.005-1.030); Urine Bilirubin NEGATIVE (Negative); Urine Blood Negative (Negative); Urine Clarity Clear (Clear); Urine Color Light-Yellow (Yellow); Urine Glucose NEGATIVE (Negative); Urine Protein NEGATIVE (Negative); Urine Urobilinogen Normal (Normal); Urine pH 6.5 (5.0-7.0)
[2022-10-30] MEDS: INSULIN -REGULAR HUMAN 50 UNIT/0.5 ML ML SQ SCH ×2 (07:30→11:25)
[2022-10-30] MEDS ORDERED: ASPIRIN EC 81 MG TAB PO SCH (09:00)
[2022-10-30] MEDS ORDERED: ISOSORBIDE MONO SR 30 MG TAB PO SCH (09:00)
[2022-10-30] MEDS ORDERED: ENOXAPARIN 40 MG/0.4 ML SQ SCH (09:00)
[2022-10-30] MEDS ORDERED: lisinopriL 10 MG TAB PO SCH (09:00)
[2022-10-30] MEDS ORDERED: CLOPIDOGREL 75 MG TABLET PO SCH (09:00)
[2022-10-30] MEDS: BACLOFEN 10 MG TAB PO SCH (09:17)
[2022-10-30] MEDS: GABAPENTIN 400 MG CAP PO SCH (09:17)
[2022-10-30] MEDS: NITROGLYCERIN 0.4 MG/TAB SL PRN (10:52)
[2022-10-30 11:51] VITALS: BP 125/60; TEMP 97.2
--- NOTE | 2022-10-30 12:14 | EKG ---
Test Date: 2022-10-29 Test Time: 16:31:46 Branch Banker: Ramiro SI MEASUREMENT RESULTS: Intervals: Rate: 83 NH: 144 QRSD: 80 QT: 360 QTc: 423 [place]: P: 61 NH: 144 QRS: 89 T: 45 INTERPRETIVE STATEMENTS: Normal sinus rhythm Normal ECG Compared to ECG 06/09/2022 13:27:43 No significant changes Electronically Signed On 10-30-22 12:13:16 CDT by Prateek Duarte
--- NOTE | 2022-10-30 13:40 | P.DS ---
Admission Date: 10/29/22 Discharge Date: 10/30/22 Disposition: ROUTINE DISCHARGE Discharge Condition: GOOD Reason for Admission: ACS rule out Consultations: Cardiology - Dr. Duarte Brief History of Present Illness: 67yo M, PMH: insulin-dependent diabetes, hypertension, COPD, CAD with previous stents Patient presents the emergency department with chief complaint of chest pain. He reports intermittent chest pain over the course of the last 2 days, his episode today started after power washing, pain is described as "getting hit in the chest" does radiate to his back and was associated with some mild shortness of breath and nausea, denies diaphoresis. He called his process improvement analyst who is Dr. Vivas who recommended he come to the emergency department for evaluation. He was evaluated in the emergency department his initial high-sensitivity troponin is 5.2, D-dimer 280, EKG without STEMI criteria present. Feeling better at this time. Hospital Course: Problem List: Chest pain hx of CAD IDDM2 Hypertension COPD Patient presented with chest pain associated with some mild shortness of breath and nausea. Troponins were negative and stable x3. D-dimer was negative. EKG without STEMI criteria present. Cardiology was consulted and recommended patient to follow up in the office tomorrow - to be set up for stress testing and holter monitor. Continue home medications as previously prescribed. No new/change in medications Follow up: PCP 3-5 days Cardiology - Dr. Duarte tomorrow as planned in office Physical Exam: GEN: Alert, oriented, NAD HEENT: Normal conjunctiva, sclera anicteric CV: Regular rate and rhythm, no edema Pulm: Nonlabored respirations on room air ABD: Soft, nontender, nondistended MSK: No joint tenderness Integumentary: No rashes Neuro: Normal speech, normal affect Vital Signs/Physical Exam: Temp Pulse Resp BP Pulse Ox 97.2 F 67 16 125/60 97 10/30/22 11:50 10/30/22 11:50 10/30/22 11:50 10/30/22 11:50 10/30/22 11:50 Laboratory Data at Discharge: WBC 8.50 thou/uL (4.3-10.9) 10/30/22 02:46 Hgb 12.7 g/dL (13.6-17.9) L 10/30/22 02:46 Hct 39.9 % (39.6-49.0) 10/30/22 02:46 Plt Count 214 thou/uL (152-406) 10/30/22 02:46 Sodium 139 mEq/L (136-145) 10/30/22 02:46 Potassium 3.9 mEq/L (3.5-5.1) 10/30/22 02:46 BUN 15 mg/dL (7-18) 10/30/22 02:46 Creatinine 0.98 mg/dL (0.70-1.30) 10/30/22 02:46 Glucose 145 mg/dL (74-106) H 10/30/22 02:46 Home Medications: Baclofen [Lioresal*] 10 mg PO BID 06/01/20 Duloxetine HCl [Cymbalta] 60 mg PO BEDTIME 06/01/20 Gabapentin 400 mg PO BID 06/01/20 Glimepiride 4 mg PO DAILY 06/01/20 Lisinopril [Zestril] 10 mg PO DAILY 06/01/20 Aspirin [Aspirin EC 81 MG] 81 mg PO DAILY 30 Days #30 tablet. 06/04/20 Atorvastatin Calcium [Lipitor] 1 tab PO BEDTIME 02/25/22 Clopidogrel Bisulfate [Plavix] 1 tab PO DAILY 02/25/22 Isosorbide Mononitrate [Isosorbide Mononitrate ER] 30 mg PO DAILY 03/28/22 Cetirizine HCl [Zyrtec] 10 mg PO BEDTIME 10/30/22 Montelukast [Singulair*] 10 mg PO BEDTIME 10/30/22 Semaglutide [Rybelsus] 7 mg PO DAILY 10/30/22 Physician Discharge Instructions: Patient presented with chest pain associated with some mild shortness of breath and nausea. Troponins were negative and stable x3. D-dimer was negative. EKG without STEMI criteria present. Cardiology was consulted and recommended patient to follow up in the office tomorrow - to be set up for stress testing and holter monitor. Continue home medications as previously prescribed. No new/change in medications Follow up: PCP 3-5 days Cardiology - Dr. Duarte tomorrow as planned in office Time spent managing pt's care (in minutes): 45
--- NOTE | 2022-10-30 21:46 | CON ---
Date of Consultation: 10/30/2022 Reason For Consultation: Chest pain. History Of Present Illness: A 67-year-old male, well known to me, with history of hypertension; diab etes; COPD; coronary artery disease, status post multiple cardiac stents, presented with chest pain, not accelerated to the activities. It all of a sudden goes through his back, gets slightly diaphoret ic and does not have any exertional chest pain and has been chest pain free since admission. Past Medical History: As outlined above in the HPI. Medications: Refer reconciliation sheet for detailed list. Allergies: PENICILLIN, CODEINE. Family History: No premature coronary artery disease or cancer. Social History: Does not smoke or drink. Does not use any drugs. Review of Systems: All systems were reviewed and they are all negative except as mentioned in HPI. Physical Examination: Vital Signs: Reviewed. Head and Neck: Pupils are equal, reactive to light. Intact eye movements. No JVD. No cervical lym phadenopathy. Neck is supple. Thyroid is not enlarged. Lungs: Clear to auscultation bilaterally. No rhonchi, wheezing, or crackles. No accessory muscle u se. Heart: Regular rate and rhythm. No extra sounds. Abdomen: Soft, nontender. Bowel sounds positive. No organomegaly. No masses or hernia. No rigidi ty or rebound. Extremities: No edema, clubbing, or cyanosis. Intact pulses. Skin: No rash. Neurologic: Alert, awake, and oriented x3. No acute focal deficits appreciated. Investigations: BUN is 15, creatinine 0.98. Troponins x3 are negative and hemoglobin is 12.7. Assessment/recommendations: 1.Chest pain. Cardiac enzymes are negative. Chest pain is atypical. Since he is pain free now, he can be released. Follow up with me in the office tomorrow and arrange for a stress test and an echo as an outpatient. In the meanwhile, continue aspirin and high-dose statin. 2.Dyslipidemia. Continue statin with Lipitor. 3.Hypertension. Blood pressure is controlled. SR/MODL Voice ID: [id number] Report ID: [id number]
== END 2022-10-30 16:15 | disposition home or self-care (01) ==
LOC: ER 16:26 → ERHOLD 18:54 → 2ND 19:58
PROVIDERS: ADMIT Hospitalist; ATTEND Hospitalist
DX: R07.9 Chest pain, unspecified (principal); E11.8 Type 2 diabetes mellitus with unspecified complications; Z79.4 Long term (current) use of insulin; I10 Essential (primary) hypertension; J44.9 Chronic obstructive pulmonary disease, unspecified; I25.10 Atherosclerotic heart disease of native coronary artery without angina pectoris; E78.5 Hyperlipidemia, unspecified
CPT/HCPCS: 36415; 71045; 80048; 81003; 82947; 83880; 84484; 85025; 85379; 93005; 99285; G0378; J1650

== ENCOUNTER 2024-03-20 16:07 | Emergency (ER) | payer OTHER ==
--- NOTE | 2024-03-20 16:28 | ER ---
Nurse's Notes [facility] Name: Alec Ortiz Jr Age: 68 yrs Sex: Male : 1955 Arrival Date: 03/20/2024 Time: 16:07 Bed IW1 Private MD: Diagnosis: Other skin changes Presentation: 03/20 16:19 Chief complaint: Patient states: blood blister to left hand onset 2 weeks ago. Pt cm10 states that he also has blisters to left hand that burn. Coronavirus screen: Client denies travel out of the [place] in the last 14 days. Ebola Screen: Patient denies travel to an Ebola-affected area in the 21 days before illness onset. No symptoms or risks identified at this time. Initial Sepsis Screen: Does the patient meet any 2 criteria? No. Patient's initial sepsis screen is negative. Does the patient have a suspected source of infection? No. Patient's initial sepsis screen is negative. Risk Assessment: Do you want to hurt yourself or someone else? Patient reports no desire to harm self or others. Onset of symptoms was March 20, 2024. 16:19 Method Of Arrival: Ambulatory cm10 16:19 Acuity: WILLA 4 cm10 Triage Assessment: 16:21 General: Appears in no apparent distress. comfortable, Behavior is calm, cooperative. cm10 Pain: Denies pain. Neuro: No deficits noted. Level of Consciousness is awake, alert, obeys commands, Oriented to person, place, time, situation, Appropriate for age. Respiratory: No deficits noted. Airway is patent Respiratory effort is even, unlabored, Respiratory pattern is regular, symmetrical. Derm: Wound noted left hand Wound is Blood blister. Historical: - Allergies: 16:21 Codeine; cm10 16:21 PENICILLINS; cm10 - PMHx: 16:21 COPD; Diabetes - NIDDM; Hypertension; neuropathy; Melanoma; cm10 - PSHx: 16:21 Cholecystectomy; Heart Stents; hernia repair; cm10 - Immunization history:: Adult Immunizations up to date. - Infectious Disease History:: Denies. - Social history:: Smoking status: unknown. Screenin:22 [facility] ED Fall Risk Assessment (Adult) History of falling in the last 3 months, cm10 including since admission No falls in past 3 months (0 pts) Confusion or Disorientation No (0 pts) Intoxicated or Sedated No (0 pts) Impaired Gait No (0 pts) Mobility Assist Device Used No (0 pt) Altered Elimination No (0 pt) Score/Fall Risk Level 0 - 2 = Low Risk Oriented to surroundings, Maintained a safe environment, Hourly rounding (assess needs \T\ fall precautionary measures) done. Abuse screen: Denies threats or abuse. Denies injuries from another. Nutritional screening: No deficits noted. Tuberculosis screening: No symptoms or risk factors identified. Vital Signs: 16:19 BP 136 / 74; Pulse 69; Resp 18; Temp 98.1(O); Pulse Ox 98% on R/A; cm10 ED Course: 16:10 Patient arrived in ED. ra3 16:13 [facility]wan FNP [facility] 7 16:13 James Frederick MD is Attending Physician. [facility] 16:21 Triage completed. cm10 16:22 Arm band placed on right wrist. Patient placed in waiting room. cm10 16:22 Patient has correct armband on for positive identification. Provided Education on: ER cm10 process and procedures.. Cardiac monitoring not applicable on this patient. 16:23 No provider procedures requiring assistance completed. Patient did not have IV access cm10 during this emergency room visit. Administered Medications: No medications were administered Medication: 16:22 VIS not applicable for this client. cm10 Outcome: 16:23 Discharged to home ambulatory, with significant other, cm10 16:23 Condition: good 16:23 Discharge instructions given to patient, significant other, Instructed on discharge instructions, follow up and referral plans. Demonstrated understanding of instructions, follow-up care, 16:27 Discharge ordered by . [facility] 16:32 Patient left the ED. cm10 Signatures: Yarelis Awan FNP FNP [facility] Abena Chris, RN RN cm10 Lisset Wilkinson ra3
--- NOTE | 2024-03-20 16:28 | EDPHYS ---
Physician Documentation [facility] Name: Alec Ortiz Jr Age: 68 yrs Sex: Male : 1955 Arrival Date: 03/20/2024 Time: 16:07 Bed IW1 Private MD: ED Physician James Frederick HPI: 03/20 16:21 This 68 yrs old Male presents to ER via Ambulatory with complaints of Black jh7 spots itching and spreading. 16:21 68-year-old male with a past medical history of hypertension, diabetes, and malignant jh7 melanoma presents to the ER complaining of a black lesion on his left hand. The patient reports that it was dark and flat 2 weeks ago and has rapidly grown and become elevated since then. The patient reports that the area is itchy and burning. He denies any known injury to his hand.. Historical: - Allergies: 16:21 Codeine; cm10 16:21 PENICILLINS; cm10 - PMHx: 16:21 COPD; Diabetes - NIDDM; Hypertension; neuropathy; Melanoma; cm10 - PSHx: 16:21 Cholecystectomy; Heart Stents; hernia repair; cm10 - Immunization history:: Adult Immunizations up to date. - Infectious Disease History:: Denies. - Social history:: Smoking status: unknown. ROS: 16:21 Constitutional: Per HPI jh7 Exam: 16:21 Constitutional: This is a well developed, well nourished patient who is awake, alert, jh7 and in no acute distress. Head/Face: Normocephalic, atraumatic. Eyes: Pupils equal round and reactive to light, extra-ocular motions intact. Lids and lashes normal. Conjunctiva and sclera are non-icteric and not injected. Cornea within normal limits. Periorbital areas with no swelling, redness, or edema. Neck: Trachea midline, no thyromegaly or masses palpated, and no cervical lymphadenopathy. Supple, full range of motion without nuchal rigidity, or vertebral point tenderness. No Meningismus. Cardiovascular: Regular rate and rhythm with a normal S1 and S2. No gallops, murmurs, or rubs. Normal PMI, no JVD. No pulse deficits. Respiratory: Lungs have equal breath sounds bilaterally, clear to auscultation and percussion. No rales, rhonchi or wheezes noted. No increased work of breathing, no retractions or nasal flaring. Abdomen/GI: Soft, non-tender, with normal bowel sounds. No distension or tympany. No guarding or rebound. No evidence of tenderness throughout. MS/ Extremity: Pulses equal, no cyanosis. Neurovascular intact. Full, normal range of motion. Neuro: Awake and alert, GCS 15, oriented to person, place, time, and situation. Cranial nerves II-XII grossly intact. Motor strength 5/5 in all extremities. Sensory grossly intact. Cerebellar exam normal. Normal gait. 16:21 Skin: lesion(s), noted, and can be described as raised, Asymmetrical, black lesion on the left lateral hand with irregular borders that is elevated. Measures about 10 mm. The area is mildly tender., Vital Signs: 16:19 BP 136 / 74; Pulse 69; Resp 18; Temp 98.1(O); Pulse Ox 98% on R/A; cm10 MDM: 16:25 Medical Screening Exam initiated [facility] 16:28 Differential diagnosis: Malignant melanoma, squamous cell carcinoma, basal cell jh7 carcinoma, hematoma, ecchymosis. Data reviewed: vital signs, nurses notes. Historians other than the Patient: Spouse/Significant Other: . Care significantly affected by the following chronic conditions: Cancer. Counseling: I had a detailed discussion with the patient and/or guardian regarding the historical points, exam findings, and any diagnostic results supporting the discharge/admit diagnosis, the need for outpatient follow up, a manager office services, to return to the emergency department if symptoms worsen or persist or if there are any questions or concerns that arise at home. Special discussion: Concern for possible malignant melanoma. Advised the patient to follow-up with dermatology for further workup.. Administered Medications: No medications were administered Disposition Summary: 03/20/24 16:27 Discharge Ordered Notes: Location: Home [facility] Problem: new [facility] Symptoms: are unchanged [facility] Condition: Stable [facility] Diagnosis - Other skin changes [facility] Followup: [facility] - With: Private Physician - When: Follow up with Dr. Leonard Reinoso, Dermatology. [phone] - Reason: Discharge Instructions: - Discharge Summary Sheet [facility] - Melanoma [facility] - Excision of Skin Lesions [facility] Forms: - Medication Reconciliation Form [facility] - Patient Portal Instructions [facility] - Leadership Thank You Letter [facility] Signatures: Yarelis Awan, [employer]SE [employer]ORER [employer] jh7 Abena Chris, RN RN cm10
[2024-03-20 19:30] VITALS: BP 136/74; TEMP 98.1; O2SAT 98
== END 2024-03-20 16:32 | disposition home or self-care (01) ==
LOC: ER 16:07
DX: R23.8 Other skin changes (principal); Z85.820 Personal history of malignant melanoma of skin
CPT/HCPCS: 99282

== ENCOUNTER 2024-09-01 13:57 | Emergency (ER) | payer OTHER ==
--- NOTE | 2024-09-01 14:12 | ER ---
Nurse's Notes [facility] Name: Alec Ortiz Jr Age: 69 yrs Sex: Male : 1955 Arrival Date: 09/01/2024 Time: 13:57 Bed IW2 Private MD: Diagnosis: Ingrown toenail;Left great toe pain;Essential (primary) hypertension Presentation: 09/01 14:06 Chief complaint: Patient states: ingrown toenail to left great toe X 2 days. iw Coronavirus screen: At this time, the client does not indicate any symptoms associated with coronavirus-19. Ebola Screen: No symptoms or risks identified at this time. Initial Sepsis Screen: Does the patient meet any 2 criteria? No. Patient's initial sepsis screen is negative. Does the patient have a suspected source of infection? No. Patient's initial sepsis screen is negative. Risk Assessment: Do you want to hurt yourself or someone else? Patient reports no desire to harm self or others. Onset of symptoms was August 30, 2024. 14:06 Method Of Arrival: Ambulatory iw 14:06 Acuity: WILLA 4 iw Historical: - Allergies: 14:07 Codeine; iw 14:07 PENICILLINS; iw - PMHx: 14:07 COPD; melanoma; Diabetes - NIDDM; Hypertension; neuropathy; iw - PSHx: 14:07 Cholecystectomy; Heart Stents; hernia repair; back; iw - Immunization history:: Adult Immunizations up to date. - Infectious Disease History:: Denies. - Social history:: Smoking status: Patient denies any tobacco usage or history of. Screenin:09 [facility] ED Fall Risk Assessment (Adult) History of falling in the last 3 months, iw including since admission No falls in past 3 months (0 pts) Confusion or Disorientation No (0 pts) Intoxicated or Sedated No (0 pts) Impaired Gait No (0 pts) Mobility Assist Device Used No (0 pt) Altered Elimination No (0 pt) Score/Fall Risk Level 0 - 2 = Low Risk Oriented to surroundings, Maintained a safe environment. Abuse screen: Denies threats or abuse. Denies injuries from another. Nutritional screening: No deficits noted. Tuberculosis screening: No symptoms or risk factors identified. Assessment: 14:08 General: Appears in no apparent distress. Behavior is calm, cooperative. Pain: iw Complains of pain in left first toe and Left first toenail Pain currently is 6 out of 10 on a pain scale. Neuro: Level of Consciousness is awake, alert, obeys commands, Oriented to person, place, time, situation, Moves all extremities. Full function. Cardiovascular: Patient's skin is warm and dry. Respiratory: Respiratory effort is even, unlabored, Respiratory pattern is regular, symmetrical. Derm: Skin is pink, warm \T\ dry. Musculoskeletal: Range of motion: intact in all extremities. 14:40 Reassessment: No changes from previously documented assessment. Patient and/or family cm10 updated on plan of care and expected duration. Pain level reassessed. Patient is alert, oriented x 3, equal unlabored respirations, skin warm/dry/pink. Vital Signs: 14:06 BP 157 / 84; Pulse 85; Resp 16; Temp 97.6(O); Pulse Ox 100% on R/A; Weight 89.81 kg; iw Height 5 ft. 6 in. ; Pain 6/10; 14:06 Body Mass Index 31.96 (89.81 kg, 167.64 cm) iw 14:06 Pain Scale: Adult iw ED Course: 14:02 Patient arrived in ED. al6 14:02 Cristi Dooley DO is Attending Physician. ms3 14:07 Triage completed. iw 14:08 Arm band placed on. iw 14:09 No provider procedures requiring assistance completed. Patient did not have IV access iw during this emergency room visit. 14:11 Ruslan Quijano DPM is Referral Physician. ms3 14:41 Patient has correct armband on for positive identification. Provided Education on: cm10 finish all prescribed antibiotics. Administered Medications: 14:40 Drug: Trimethoprim-Sulfamethoxazole PO (160 mg-800 mg (DS) 1 tablet PO once Route: PO; cm10 14:40 Follow up: Response: No adverse reaction cm10 Medication: 14:09 VIS not applicable for this client. iw Outcome: 14:11 Discharge ordered by . ms3 14:40 Discharged to home ambulatory, cm10 14:40 Condition: stable 14:40 Discharge instructions given to patient, Instructed on discharge instructions, follow up and referral plans. medication usage, Demonstrated understanding of instructions, follow-up care, medications, Prescriptions given X 1, 14:41 Patient left the ED. cm10 Signatures: Linda Humphreys, RN RN iw Cristi Dooley, DO ms3 Abena Chris RN RN cm10 Elizabeth Perez al6 Corrections: (The following items were deleted from the chart) 14:08 14:06 BP 157 / 84; Pulse 85bpm; Resp 16bpm; Pulse Ox 100% RA; iw iw 14:11 14:06 BP 157 / 84; Pulse 85bpm; Resp 16bpm; Pulse Ox 100% RA; 89.81 kg; Height 5 ft. 6 iw in.; BMI: 31.9; Pain 6/10, Adult; iw
--- NOTE | 2024-09-01 14:12 | EDPHYS ---
Physician Documentation [facility] Name: Alec Ortiz Jr Age: 69 yrs Sex: Male : 1955 Arrival Date: 09/01/2024 Time: 13:57 Bed IW2 Private MD: ED Physician Cristi Dooley HPI: 09/01 14:08 This 69 yrs old Male presents to ER via Ambulatory with complaints of Foot ms3 Pain. 14:08 69-year-old male with past medical history of COPD, melanoma, diabetes, hypertension, ms3 neuropathy presents to the emergency department for left great toe pain for 2 days. Patient states that discomfort is 6/10 and worse with walking. He denies any alleviating factors. Patient states he called his primary care physician but was unable to get in for 2 weeks.. Historical: - Allergies: 14:07 Codeine; iw 14:07 PENICILLINS; iw - PMHx: 14:07 COPD; melanoma; Diabetes - NIDDM; Hypertension; neuropathy; iw - PSHx: 14:07 Cholecystectomy; Heart Stents; hernia repair; back; iw - Immunization history:: Adult Immunizations up to date. - Infectious Disease History:: Denies. - Social history:: Smoking status: Patient denies any tobacco usage or history of. ROS: 14:08 Constitutional: Negative for fever, and chills. Cardiovascular: Negative for chest ms3 pain, and palpitations. Respiratory: Negative for shortness of breath, cough, wheezing, and pleuritic chest pain, Abdomen/GI: Negative for abdominal pain, nausea, vomiting, diarrhea, and constipation, 14:08 MS/extremity: Positive for Left great toe pain, Exam: 14:08 Constitutional: This is a well developed, well nourished patient who is awake, alert, ms3 and in no acute distress. Cardiovascular: Regular rate and rhythm with a normal S1 and S2. No gallops, murmurs, or rubs. Normal PMI, no JVD. No pulse deficits. Respiratory: Lungs have equal breath sounds bilaterally, clear to auscultation and percussion. No rales, rhonchi or wheezes noted. No increased work of breathing, no retractions or nasal flaring. Abdomen/GI: Soft, non-tender, with normal bowel sounds. No distension or tympany. No guarding or rebound. No evidence of tenderness throughout. 14:08 Skin: Blister of lateral eponychial groove of the left great toe. Vital Signs: 14:06 BP 157 / 84; Pulse 85; Resp 16; Temp 97.6(O); Pulse Ox 100% on R/A; Weight 89.81 kg; iw Height 5 ft. 6 in. ; Pain 6/10; 14:06 Body Mass Index 31.96 (89.81 kg, 167.64 cm) iw 14:06 Pain Scale: Adult iw MDM: 14:03 Medical Screening Exam initiated ms3 14:08 Differential diagnosis: cellulitis, Ingrown toenail. Data reviewed: vital signs, nurses ms3 notes, and as a result, I will discharge patient. I considered the following discharge prescriptions or medication management in the emergency department Medications were administered in the Emergency Department. See MAR. Counseling: I had a detailed discussion with the patient and/or guardian regarding the historical points, exam findings, and any diagnostic results supporting the discharge/admit diagnosis, the need for outpatient follow up, to return to the emergency department if symptoms worsen or persist or if there are any questions or concerns that arise at home. Special discussion: I discussed with the patient/guardian in detail that at this point there is no indication for admission to the hospital. It is understood, however, that if the symptoms persist or worsen the patient needs to return immediately for re-evaluation. ED course: Discussed his exam findings with patient. Patient to follow-up with Dr. Quijano in 2 to 3 days. Patient understands agrees with plan. All questions were answered. Patient given prescription for Bactrim DS. Return precautions discussed include worsening symptoms, or any other concerns.. Administered Medications: 14:40 Drug: Trimethoprim-Sulfamethoxazole PO (160 mg-800 mg (DS) 1 tablet PO once Route: PO; cm10 14:40 Follow up: Response: No adverse reaction cm10 Disposition Summary: 09/01/24 14:11 Discharge Ordered Notes: Location: Home ms3 Condition: Stable ms3 Diagnosis - Ingrown toenail ms3 - Left great toe pain ms3 - Essential (primary) hypertension ms3 Followup: ms3 - With: Ruslan Quijano DPM - When: 2 - 3 days - Reason: Recheck today's complaints Discharge Instructions: - Discharge Summary Sheet ms3 - Hypertension, Adult ms3 - Ingrown Toenail ms3 - DASH Eating Plan ms3 Forms: - Medication Reconciliation Form ms3 - Antibiotic Education ms3 - Prescription Opioid Use ms3 - Patient Portal Instructions ms3 - Leadership Thank You Letter ms3 Prescriptions: - Bactrim DS 800-160 mg Oral Tablet - take 1 tablet ORAL route every 12 hours for 10 days; 20 tablet; Refills: 0, ms3 Product Selection Permitted Signatures: Linda Humphreys RN RN iw Cristi Dooley DO DO ms3 Abena Chris RN RN cm10
[2024-09-01] MEDS ORDERED: SMZ./TMP. 800/160 MG TABLET ONE (14:31)
[2024-09-01 14:46] VITALS: BP 157/84; TEMP 97.6; O2SAT 100
== END 2024-09-01 14:41 | disposition home or self-care (01) ==
LOC: ER 13:57
DX: L60.0 Ingrowing nail (principal); I10 Essential (primary) hypertension
CPT/HCPCS: 99283

== ENCOUNTER 2024-09-06 20:29 | Emergency (ER) | payer OTHER ==
[2024-09-06] MEDS ORDERED: HYDROCODONE/APAP 7.5/325 MG TAB ONE (20:54)
--- NOTE | 2024-09-06 21:46 | RAD REPORT ---
EXAM: Knee Right 3 View INDICATION: PAIN COMPARISON: 03/21/24 FINDINGS: No acute fracture. No significant knee effusion. Patellar enthesophyte. Other: N/A IMPRESSION: No acute osseous abnormality involving the imaged knee.
--- NOTE | 2024-09-06 22:14 | EDPHYS ---
Physician Documentation [facility] Name: Alec Ortiz Jr Age: 69 yrs Sex: Male : 1955 Arrival Date: 09/06/2024 Time: 20:29 Bed 6 Private MD: ED Physician Cheo Britt HPI: 09/06 21:18 This 69 yrs old Male presents to ER via Wheelchair with complaints of Knee kb Pain, Leg Swelling. 21:18 Pt is a 69 year old male who presents for right knee pain. States he was walking, kb turned and his foot didn't turn with him so he twisted his right knee and felt/heard a loud pop. Denies any other injuries. . Historical: - Allergies: 20:39 Codeine; me1 20:39 PENICILLINS; me1 - PMHx: 20:39 COPD; Diabetes - NIDDM; Hypertension; melanoma; neuropathy; Osteoarthritis; me1 - PSHx: 20:39 back; Cholecystectomy; Heart Stents; hernia repair; me1 - Immunization history:: Adult Immunizations up to date. - Infectious Disease History:: Denies. - Social history:: Smoking status: Patient denies any tobacco usage or history of. ROS: 21:17 Constitutional: As per HPI kb Exam: 21:17 Constitutional: This is a well developed, well nourished patient who is awake, alert, kb and in no acute distress. Head/Face: Normocephalic, atraumatic. ENT: Moist Mucous membranes Cardiovascular: Regular rate Respiratory: Respirations even and unlabored. No increased work of breathing. Talking in full sentences Skin: Warm, dry with normal turgor. Normal color. Neuro: Awake and alert, GCS 15, oriented to person, place, time, and situation. 21:17 Musculoskeletal/extremity: Extremities: grossly normal except: noted in the right knee: decreased ROM, ecchymosis, pain, swelling, tenderness, ROM: limited active range of motion due to pain, Circulation is intact in all extremities. Sensation intact. Vital Signs: 20:36 BP 123 / 92; Pulse 75; Resp 17; Temp 98.3; Pulse Ox 99% ; Weight 89.36 kg; Height 5 ft. me1 6 in. ; Pain 9/10; 21:41 BP 100 / 82; Pulse 72; Resp 18; Pulse Ox 97% ; jj7 22:26 BP 116 / 77; Pulse 69; Resp 20; Pulse Ox 98% ; jj7 20:36 Body Mass Index 31.80 (89.36 kg, 167.64 cm) me1 20:36 Pain Scale: Adult me1 MDM: 20:38 Medical Screening Exam initiated kb 21:18 Differential diagnosis: fracture, sprain. Data reviewed: vital signs, nurses notes. kb Historians other than the Patient: Family Member: family. 22:12 Counseling: I had a detailed discussion with the patient and/or guardian regarding the kb historical points, exam findings, and any diagnostic results supporting the discharge/admit diagnosis, radiology results, the need for outpatient follow up, a orthopedic surgeon, to return to the emergency department if symptoms worsen or persist or if there are any questions or concerns that arise at home. 09/06 20:41 Order name: Knee Right 3 View XRAY; Complete Time: 21:49 kb 09/06 21:49 Order name: Knee Immobilizer; Complete Time: 22:26 kb Administered Medications: 21:01 Drug: Hydrocodone-Acetaminophen PO (7.5 mg-325 mg) 1 tabs PO once Route: PO; me1 22:26 Follow up: Response: Pain is decreased jj7 Disposition: 09/07 02:33 Co-signature as Attending Physician, Cheo Britt MD I agree with the assessment sp4 and plan of care. I reviewed the patient's care provided by the Advanced Practice Provider and agree with the diagnosis and treatment plan. Disposition Summary: 09/06/24 22:13 Discharge Ordered Notes: Location: Home Condition: Stable kb Diagnosis - Pain in right knee kb Followup: kb - With: Emergency Department - When: As needed - Reason: Worsening of condition Followup: kb - With: Private Physician - When: 2 - 3 days - Reason: Recheck today's complaints, Continuance of care, Re-evaluation by your physician Followup: kb - With: Tre Underwood MD - When: 1 - 2 days - Reason: Recheck today's complaints Discharge Instructions: - Discharge Summary Sheet kb - Knee Sprain, Adult, [id number] kb - Acute Knee Pain, Adult, [id number] kb Forms: - Medication Reconciliation Form kb - Antibiotic Education kb - Prescription Opioid Use kb - Patient Portal Instructions kb - Leadership Thank You Letter trisha Prescriptions: - Diclofenac Sodium 75 mg Oral tablet, delayed release (enteric coated) - take 1 tablet ORAL route 2 times per day As needed; 30 tablet; Refills: 0, kb Product Selection Permitted Signatures: Dispatcher [employer] Yelena Cruz, YUEC COLE-Cheo Markham MD MD sp4 Andra Madsen RN RN me1 Belinda Louise RN jj7
--- NOTE | 2024-09-06 22:14 | ER ---
Nurse's Notes [facility] Name: Alec Ortiz Jr Age: 69 yrs Sex: Male : 1955 Arrival Date: 09/06/2024 Time: 20:29 Bed 6 Private MD: Diagnosis: Pain in right knee Presentation: 09/06 20:36 Chief complaint: Patient states: was walking and went to turn but his foot didn't move me1 and his knee made a loud pop and now he has right knee pain 01/04. Coronavirus screen: Vaccine status: Patient reports receiving the 2nd dose of the covid vaccine. Ebola Screen: No symptoms or risks identified at this time. Initial Sepsis Screen: Does the patient meet any 2 criteria? No. Patient's initial sepsis screen is negative. Does the patient have a suspected source of infection? No. Patient's initial sepsis screen is negative. Risk Assessment: Do you want to hurt yourself or someone else? Patient reports no desire to harm self or others. Onset of symptoms was September 06, 2024 at 19:30. 20:36 Method Of Arrival: [place] [facility] [place] 20:36 Acuity: WILLA 4 me1 Triage Assessment: 20:39 General: Appears uncomfortable, well groomed, well developed, well nourished, Behavior me1 is calm, cooperative, appropriate for age. Pain: Complains of pain in right knee Pain does not radiate. Pain currently is 9 out of 10 on a pain scale. Quality of pain is described as sharp, Pain began suddenly, Is continuous. EENT: No signs and/or symptoms were reported regarding the EENT system. Neuro: Level of Consciousness is awake, alert, obeys commands, Oriented to person, place, time, situation, Appropriate for age. Cardiovascular: Patient's skin is warm and dry. Respiratory: Airway is patent Respiratory effort is even, unlabored, Respiratory pattern is regular, symmetrical. GI: No signs and/or symptoms were reported involving the gastrointestinal system. : No signs and/or symptoms were reported regarding the genitourinary system. Derm: Bruising that is dark purple, on right knee. Musculoskeletal: Swelling present in right knee. Historical: - Allergies: 20:39 Codeine; me1 20:39 PENICILLINS; me1 - PMHx: 20:39 COPD; Diabetes - NIDDM; Hypertension; melanoma; neuropathy; Osteoarthritis; me1 - PSHx: 20:39 back; Cholecystectomy; Heart Stents; hernia repair; me1 - Immunization history:: Adult Immunizations up to date. - Infectious Disease History:: Denies. - Social history:: Smoking status: Patient denies any tobacco usage or history of. Screenin:36 [facility] ED Fall Risk Assessment (Adult) History of falling in the last 3 months, jj7 including since admission No falls in past 3 months (0 pts) Confusion or Disorientation No (0 pts) Intoxicated or Sedated No (0 pts) Impaired Gait No (0 pts) Mobility Assist Device Used No (0 pt) Altered Elimination No (0 pt) Score/Fall Risk Level 0 - 2 = Low Risk Oriented to surroundings, Maintained a safe environment, Educated pt \T\ family on fall prevention, incl call for assistance when getting out of bed, Assessed \T\ reinforced patient's understanding of fall precautions. Abuse screen: Denies threats or abuse. Nutritional screening: No deficits noted. Tuberculosis screening: No symptoms or risk factors identified. Assessment: 21:36 Reassessment: ASSUMED CARE OF PT .PT SITTING IN WC WITH ICE PACK TO KNEE. General: jj7 Appears in no apparent distress. uncomfortable, Behavior is calm, cooperative, appropriate for age. Musculoskeletal: Reports pain in right knee. Vital Signs: 20:36 BP 123 / 92; Pulse 75; Resp 17; Temp 98.3; Pulse Ox 99% ; Weight 89.36 kg; Height 5 ft. me1 6 in. ; Pain 9/10; 21:41 BP 100 / 82; Pulse 72; Resp 18; Pulse Ox 97% ; jj7 22:26 BP 116 / 77; Pulse 69; Resp 20; Pulse Ox 98% ; jj7 20:36 Body Mass Index 31.80 (89.36 kg, 167.64 cm) me1 20:36 Pain Scale: Adult ut1 ED Course: 20:32 Patient arrived in ED. gm2 20:38 Yelena Emerson FNP-C is PHCP. kb 20:38 Cheo Britt MD is Attending Physician. kb 20:39 Triage completed. me1 20:39 Arm band placed on Patient placed in waiting room. me1 21:29 Dani, Juwairiyah, RN is Primary Nurse. jj7 21:31 Knee Right 3 View XRAY In Process Unspecified. EDMS 21:36 Patient has correct armband on for positive identification. Call light in reach. Adult jj7 w/ patient. Provided Education on: USE OF CALL WEBER. 22:12 Tre Underwood MD is Referral Physician. kb 22:27 No provider procedures requiring assistance completed. Patient did not have IV access jj7 during this emergency room visit. Administered Medications: 21:01 Drug: Hydrocodone-Acetaminophen PO (7.5 mg-325 mg) 1 tabs PO once Route: PO; me1 22:26 Follow up: Response: Pain is decreased jj7 Medication: 21:36 VIS not applicable for this client. jj7 Outcome: 22:13 Discharge ordered by . kb 22:27 Discharged to home via wheelchair, with family, jj7 22:27 Condition: good 22:27 Discharge instructions given to patient, family, Instructed on discharge instructions, follow up and referral plans. medication usage, Demonstrated understanding of instructions, follow-up care, medications, Prescriptions given X 1, 22:27 Patient left the ED. jj7 Signatures: Dispatcher [employer] EDMA Yelena Emerson, DATA COMMUNICATIONS ANALYST-C DATA COMMUNICATIONS ANALYST-Belinda Huff RN RN jj7 Andra Madsen RN RN ut1 Ann Sanchez 2
[2024-09-06 22:58] VITALS: TEMP 98.3
[2024-09-06 23:00] VITALS: BP 116/77; O2SAT 98
== END 2024-09-06 22:27 | disposition home or self-care (01) ==
LOC: ER 20:29
DX: M25.561 Pain in right knee (principal)
CPT/HCPCS: 99283

== ENCOUNTER 2025-01-24 11:04 | Observation (INO) | payer OTHER ==
--- OUTSIDE RECORDS SUMMARY | 2025-01-24 11:16 | XMS REPORT | Continuity of Care Document ---
Author Name Unknown Address [address] [facility] [place] [address] Organization [facility] Address [address] 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 Role Phone Nickolas Barrow DO Primary Care Physician [phone] Alexander Gonzales Attending Clinician Unavailable Nickolas Barrow Attending Clinician Unavailable Rome Juarez Attending Clinician Unavaila TRE You Attending Clinician Unavailab bill Ann MD, Levi Attending Clinician + LEVI ANN Attending Clinician Unavailable Crystal SPENCE, Paris Neumann Attending Clinician [phone] Jose M Kelsey Attending Clinician Unavailable Doctor Unassigned, [place] Attending Clinician U navailable Ilsa PEREZ, Zhang Attending Clinician [phone] Shauna Clay MD Attending Clinician + [phone] PARIS ROJAS Attending Clinician Unavail able Lauryn SPENCE, Peña Attending Clinician [phone] Marcia MAGANA, Marisa Attending Clinician Unavailable LEONORA JAMESON Attending Clinician Unavailable Wilman SPENCE, Charlotte Attending Clinician [phone] Leonora Jameson MD Attending Clinician [phone] Raj Samaniego MD Attending Clinician [phone] Maria Luisa MAGANA, Joy Attending Clinician Unavailable Marissa SPENCE, Levi Attending Clinician +[phone] Zhang Curtis DO Attending Clinician [phone] Pob, [facility] Main Attending Clinician Unavailabl e NICKOLAS BARROW Attending Clinician Unavailable ZHANG CURTIS Attending Clinician Unavailable SHAUNA WEST Attending Clinician Unavailable SHAUNA WEST Attending Clinician Unavailable Clinic, Speech Voice/Swallow Attending Clinician Unavailable Doctor Unassigned, [place] Attending Clinician U navailable MACIEJ BONILLA Attending Clinician Unavailable MACIEJ BONILLA Attending Clinician Unavailable Therapist, [facility] Respiratory Attending Clinician U navailable VICTOR M TAYLOR Attending Clinician Unav ailable ESTIVEN GOETZ Attending Clinician Unavailable Therapy, [facility] Covid Infusion Attending Clinician Unavailable Estiven Goetz MD Attending Clinician [phone] Tre Meza MD Attending Clinician [phone] Only, [facility] Test Attending Clinician Unavailable Lab, [facility] Fam Pob I Attending Clinician Unavailab bill Gregory MD, Christine Attending Clinician [phone] CHRISTINE GREGORY Attending Clinician Unavailable Eli MAGANA, Amita Ge Attending Clinician Unavail able Mercedes GALVANSilvia Attending Clinician [phone] BARBARA TRACEY Attending Clinician Unavailable [facility] Acute [facility] Attending Clinician Unav ailable Barbara Tracey MD Attending Clinician [phone] KNOW, DOES_NOT Admitting Clinician Unavailable TRE MEZA Admitting Clinician Unavailab Alexander Taylor Admitting Clinician Unavailable Jose M Kelsey Admitting Clinician Unavailable LEONORA JAMESON Admitting Clinician Unavailable Leonora Jameson MD Admitting Clinician [phone] NICKOLAS BARROW Admitting Clinician Unavailable Tre Meza MD Admitting Clinician [phone] Payers Payer Name Policy Type Policy Number Effective Date Expirati on Date Source [facility] [id number] 2018 00:00:00 [employer] MED[employer]AGE HMO [id number] 2024 00:00:00 [facility] MEDICARE Medicare [id number] 2023 00:00:00 GORDY NOVAK 5 [id number] 2022 00:00:00 [facility] 6 [id number] [facility] Problems Condition Name Condition Details Condition Category Status Onset Date Resolution Date Last Treatment Date Treating Clinician Comments Source Preoperati ve cardiovasc ular examinatio n Preoperati ve cardiovasc ular examinatio n Disease Active 4- 00:00: 00 [facility] Diabetic peripheral neuropathy ([facility]/HCC) Diabetic peripheral neuropathy (CMS/HCC) Disease Active 2023-04 00:00: 00 Madison Herrera Prostate nodule Prostate nodule Disease Active 2023-04 00:00: 00 Madison Herrera Type 2 diabetes mellitus without complicati on (CMS/HCC) Type 2 diabetes mellitus without complicati on (CMS/HCC) Disease Active 2023-04 00:00: 00 Madison Herrera Type 2 diabetes mellitus without complicati on Type 2 diabetes mellitus without complicati on Disease Active 2023-04 00:00: 00 Madison Herrera BPH without urinary obstructio n BPH without urinary obstructio n Disease Active 2023-04 00:00: 00 Madison Herrera CAD (coronary artery disease) CAD (coronary artery disease) Disease Active 2023-04 00:00: 00 Madison Herrera Cervical radiculopa thy Cervical radiculopa thy Disease Active 2023-04 00:00: 00 Madison Herrera Lumbar radiculopa thy Lumbar radiculopa thy Disease Active 2023-04 00:00: 00 Madison Herrera COPD (chronic obstructiv e pulmonary disease) COPD (chronic obstructiv e pulmonary disease) Disease Active 2023-04 00:00: 00 Madison Herrera Diabetes Diabetes Disease Active 2023-04 00:00: 00 Madison Herrera ED (erectile dysfunctio n) ED (erectile dysfunctio n) Disease Active 2023-04 00:00: 00 Madison Herrera Hypertensi on Hypertensi on Disease Active 2023-04 00:00: 00 Madison Herrera Paresthesi a Paresthesi a Disease Active 2023-04 00:00: 00 Madison Herrrea Peripheral neuropathy Peripheral neuropathy Disease Active 2023-04 00:00: 00 Madison Herrera Prostatiti s Prostatiti s Disease Active 2023-04 00:00: 00 Madison Hrerera Simple obesity Simple obesity Disease Active 2023-04 00:00: 00 Madison Herrera Skin cancer Skin cancer Disease Active 2023-04 00:00: 00 Madison Herrera Unstable angina (CMS/HCC) Unstable angina (CMS/HCC) Disease Active - 00:00: 00 Madison Herrera Essential hypertensi on Essential hypertensi on Disease Active 17 00:00: 00 [facility] Coronary artery disease involving crow coronary artery of crow heart without angina pectoris Coronary artery disease involving crow coronary artery of crow heart without angina pectoris Disease Active 3-08 00:00: 00 [facility] Primary hypertensi on Primary hypertensi on Disease Active 07-02 00:00: 00 [facility] Mixed hyperlipid emia Mixed hyperlipid emia Disease Active 07-02 00:00: 00 Memfrancesca Mast Epic S/P coronary artery stent placement S/P coronary artery stent placement Disease Active 07-02 00:00: 00 [facility] Epic Allergic rhinitis due to allergen Allergic rhinitis due to allergen Disease Active 2022-04 00:00: 00 Memoria rafaela Pro Epic Dysphonia Dysphonia Disease Active 2022-04 00:00: 00 [facility] Epic Dyspnea on exertion Dyspnea on exertion Disease Active 2022-04 00:00: 00 Memoria l Pro Epic Moderate persistent asthma without complicati on Moderate persistent asthma without complicati on Disease Active 2022-04 00:00: 00 Madison Tavarezann Epic No known active problems No known active problems Disease [facility] [id number] Pelvic pain Problem Active [facility] [id number] BPH loc w urin obs/LUTS Problem Active [facility] [id number] Acute prostatiti s Problem Active [facility] [id number] Primary osteoarthr itis of right knee Problem [facility] Lumbar spondylosi s Lumbar spondylosi s Problem [facility] Diabetes mellitus in mother complicati ng childbirth (disorder) Diabetes mellitus in mother complicati ng childbirth (disorder) Resolved Problem 11/10/2021 [facility] [place] Problem Resolve d 2021-11-10 03:51:39 Madison Mast Delayed ejaculatio n Delayed ejaculatio n Disease Resolve d 2023-04 00:00: 00 2024-03-09 00:00:00 2024-03-09 14:59:56 Madison Mast Epic Testicle pain Testicle pain Disease Resolve d 2023-04 00:00: 00 2024-03-09 00:00:00 2024-03-09 14:59:56 Madison Mast Epic Chest pain Chest pain Disease Resolve d 2024-0 8-23 00:00: 00 2024-03-09 00:00:00 2024-03-09 15:10:25 Madison Herrera Precordial pain Precordial pain Disease Resolve d 5-17 00:00: 00 2024-03-09 00:00:00 2024-03-09 15:10:25 Madison Mast Epic Allergies, Adverse Reactions, Alerts Allergy Name Allergy Type Status Severity Reaction(s) Onset Date Inactive Date Treating Clinician Comments Source Penicill ins DA Active [facility] GI UPSET, LOSS OF BALANCE 08-15 00:00: 00 [facility] codeine DA Active SV HALLUCINATIO NS 08-15 00:00: 00 [facility] Penicill ins Propensi ty to adverse reaction s Active Unknown 2023-04 2 00:00: 00 [facility] Codeine Allergy to substanc e Active 2023-04 00:00: 00 Madison Herrera Penicill in G Allergy to substanc e Active 2023-04 00:00: 00 Madison Mast Epic Codeine Allergy to substanc e Active Unknown 08-01 00:00: 00 Other Reaction( s): [facility] Penicill ins Propensi ty to adverse reaction s Active Other - See comments - 00:00: 00 [facility] PENICILL INS Drug Class Active Other-Cmnt 0 - 00:00: 00 [facility] CODEINE DRUG INGREDI Active Other-Cmnt 0 08-01 00:00: 00 [facility] Penicill ins Propensi ty to adverse reaction s Active Other - See comments 08-01 00:00: 00 [facility] Penicill ins Propensi ty to adverse reaction s Active Other - See comments 08-01 00:00: 00 [facility] Codeine Codeine Active Unknown [facility] penicill in penicill in Active Madison Mast codeine codeine Active Unknown [facility] [id number] Drug allergy Active Unknown [facility] NO KNOWN ALLERGIE S Drug Class Active [facility] Social History Social Habit Start Date Stop Date Quantity Comments Source Gender identity 2023-07-18 17:43:59 Identifies as male gender (finding) [facility] Exposure to SARS-CoV-2 (event) Not sure [facility] Sexual orientation [facility] History of Tobacco Use [facility] Sex Assigned At [facility] Alcoholic beverage intake 2024-04-01 00:00:00 2024-04-01 00:00:00 Lifetime non-drinker (finding) [facility] History of Social function 2024-03-09 00:00:00 2024-03-09 00:00:00 [facility] Alcohol intake 2023-07-20 00:00:00 2023-07-20 00:00:00 Current drinker of alcohol (finding) [facility] Tobacco use and exposure 2023-03-16 00:00:00 2023-03-16 00:00:00 Smokeless tobacco non-user [facility] Sex 2023-02-17 15:17:23 2023-02-17 15:17:23 Male (finding) [facility] Smoking Status Start Date Stop Date Source Never smoked tobacco [facility] Unknown if ever smoked [facility] Medications Ordered Medication Name Filled Medication Name Start Date Stop Date Current Medication? Ordering Clinician Indication Dosage Frequency Signature (SIG) Comments Components Source HYDROcodone -Acetaminop hen 5-325 MG HYDROcodone -Acetaminop hen 5-325 MG 10-31 00:00: 00 No 1{table t_as_ne eded} QID HYDROcodon e-Acetamin ophen 5-325 MG traMADol HCl 50 MG traMADol HCl 50 MG 7- 00:00: 00 No 1{table t_as_ne eded} QD traMADol HCl 50 MG gabapentin (Neurontin) 400 MG capsule gabapentin (Neurontin) 400 MG capsule 5-08 00:00: 00 Yes 400mg [id number] 3D TAKE 1 CAPSULE THREE TIMES A DAY Madison Herrera baclofen (Lioresal) 10 MG tablet baclofen (Lioresal) 10 MG tablet 2-11 00:00: 00 Yes 10mg Q.5D TAKE 1 TABLET TWICE A DAY Madison Herrera levocetiriz ine 5 mg tablet 06-06 00:00: 00 Yes [id number] 5mg TAKE 1 TABLET EVERY EVENING [facility] DULoxetine (Cymbalta) [address] capsule DULoxetine (Cymbalta) [address] capsule 04-28 00:00: 00 Yes 60mg QD TAKE 1 CAPSULE DAILY Madison rafaela [facility] atorvastati n (Lipitor) 40 MG tablet 2023-04 08:30: 08 Yes 40mg QD Take 40 mg by mouth 1 (one) time each day. [facility] albuterol 108 (90 Base) MCG/ACT inhaler 2023-04 08:28: 31 Yes 2{puff} Q6H Inhale 2 puffs every 6 (six) hours if needed for shortness of breath. [facility] Multiple Vitamin (Multi Vitamin) tablet 2023-04 08:28: 31 Yes 1 (one) time each day at the same time. [facility] ranolazine (Ranexa) 500 MG 12 hr tablet 2023-04 08:28: 31 Yes 500mg Q.5D Take 500 mg by mouth every 12 (twelve) hours. [facility] LORazepam (Ativan) 1 MG tablet 2023-04 00:00: 00 Yes [id number] 2mg Take 2 tablets (2 mg total) by mouth 1 (one) time if needed for anxiety (MRI) for up to 1 dose. [facility] donepezil (Aricept) 10 MG tablet 2023-04 00:00: 00 04-06 05:59 :00 No [id number] 10mg Take 1 tablet (10 mg total) by mouth every morning. [facility] donepeziL (ARICEPT) 5 mg tablet 2023-04 10:33: 40 Yes 5mg Take 1 tablet by mouth at bedtime. [facility] baclofen 10 mg GrPk 2023-04 10:33: 40 Yes Take by mouth. [facility] metoprolol succinate XL 50 mg 24 hr tablet 2023-04 00:00: 00 03-19 05:59 :00 No [id number] 50mg Take 1 tablet by mouth in the morning. [facility] lisinopriL 5 mg tablet 2023-04 00:00: 00 03-19 05:59 :00 No [id number] 5mg Take 1 tablet by mouth every morning. [facility] atorvastati n 40 mg tablet 2023-04 00:00: 00 03-19 05:59 :00 No [id number] 40mg Take 1 tablet by mouth at bedtime. [facility] ranolazine 500 mg 12 hr tablet 2023-04 00:00: 00 03-19 05:59 :00 No [id number] 500mg Take 1 tablet by mouth every 12 (twelve) hours. [facility] isosorbide mononitrate 30 mg 24 hr tablet 2023-04 00:00: 00 03-19 05:59 :00 No [id number] 30mg Take 1 tablet by mouth in the morning. [facility] aspirin 81 mg chewable tablet 2023-04 00:00: 00 03-19 05:59 :00 No [id number] 81mg Take 1 tablet by mouth in the morning. [facility] clopidogrel (Plavix) 75 MG tablet 2023-04 00:00: 00 03-19 05:59 :00 No 1{tbl} Take 1 tablet by mouth every morning. [facility] aspirin 81 MG chewable tablet 2023-04 00:00: 00 03-19 05:59 :00 No 1{tbl} Chew 1 tablet every morning. [facility] clopidogreL (PLAVIX) 75 mg tablet 2023-04 00:00: 00 08-05 00:00 :00 No [id number] 75mg Take 1 tablet by mouth in the morning. [facility] donepezil (Aricept) 5 MG tablet donepezil (Aricept) 5 MG tablet 2023-04 00:00: 00 Yes 5mg Take 5 mg by mouth at bedtime. Madison Herrera donepezil (Aricept) 5 MG tablet 2023-04 00:00: 00 Yes 1{tbl} Take 1 tablet by mouth every night. [facility] glimepiride (Amaryl) 4 MG tablet 2023-04 00:00: 00 Yes 4mg QD Take 4 mg by mouth 1 (one) time each day. [facility] Cymbalta [address] capsule 2023-04 00:00: 00 Yes 60mg QD Take 60 mg by mouth 1 (one) time each day. [facility] DULoxetine (Cymbalta) [address] capsule DULoxetine (Cymbalta) [address] capsule 2023-04 00:00: 00 04-28 00:00 :00 No 60mg QD Take 60 mg by mouth 1 time each day. Madison Herrera tamsulosin (Flomax) 0.4 MG 24 hr capsule tamsulosin (Flomax) 0.4 MG 24 hr capsule 2023-04 00:00: 00 Yes 2{capsu le} Q.5D Take 2 capsules by mouth in the morning and 2 capsules in the evening. Madison Herrera Tirzepatide (Mounjaro) 12.5 MG/0.5ML solution pen-injecto r 01-19 00:00: 00 Yes 12.5mg Inject 12.5 mg under the skin 1 (one) time per week. [facility] isosorbide mononitrate ER (Imdur) 30 MG 24 hr tablet isosorbide mononitrate ER (Imdur) 30 MG 24 hr tablet 01-03 00:00: 00 03-09 00:00 :00 No 30mg Take 30 mg by mouth every morning. Madison Herrera metoprolol succinate XL 50 mg 24 hr tablet 12-31 00:00: 00 03-18 00:00 :00 No [id number] 50mg Take 1 tablet by mouth in the morning for 180 days. [facility] lisinopriL 5 mg tablet 12-31 00:00: 00 03-18 00:00 :00 No [id number] 5mg Take 1 tablet by mouth every morning for 180 days. [facility] isosorbide mononitrate 30 mg 24 hr tablet 12-31 00:00: 00 03-18 00:00 :00 No [id number] 30mg Take 1 tablet by mouth in the morning for 180 days. [facility] cetirizine (ZyrTEC) 10 MG tablet 12-29 00:00: 00 Yes 10mg QD Take 10 mg by mouth 1 (one) time each day. [facility] aspirin 81 mg chewable tablet 12-21 00:00: 00 03-18 00:00 :00 No [id number] 81mg Take 1 tablet by mouth in the morning. [facility] ranolazine (RANEXA) 12 hr tablet 500 mg 12-20 15:45: 00 12-21 01:05 :31 No 500mg 500 mg, Oral, Q12H, First dose on Thu12/21/23 at 1045, Until Discontinu ed, Routine [facility] iohexol (OMNIPAQUE 300-100 mL) injection 12-20 15:12: 45 12-20 15:18 :14 No ONCE INTRA PROCEDURE, Starting on Thu12/21/23 at 1012, Until Thu12/21/23 at 1018, Routine, CV Intraproce dure [facility] lidocaine 1% (XYLOCAINE) 10 mg/mL (1 %) injection 12-20 14:10: 16 12-20 15:18 :14 No ONCE INTRA PROCEDURE, Starting on Thu12/21/23 at 0910, Until Thu12/21/23 at 1018, Routine, CV Intraproce dure [facility] fentanyl PF (SUBLIMAZE (PF)) injection 12-20 14:04: 28 12-20 15:18 :14 No ONCE INTRA PROCEDURE, Starting on Thu12/21/23 at 0904, Until Thu12/21/23 at 1018, Routine, CV Intraproce dure [facility] midazolam (VERSED) injection 12-20 14:04: 13 12-20 15:18 :14 No ONCE INTRA PROCEDURE, Starting on Thu12/21/23 at 0904, Until Thu12/21/23 at 1018, Routine, CV Intraproce dure [facility] atorvastati n 40 mg tablet 12-20 00:00: 00 03-18 00:00 :00 No [id number] 40mg Take 1 tablet by mouth at bedtime. [facility] clopidogreL (PLAVIX) 75 mg tablet 12-20 00:00: 00 03-18 00:00 :00 No [id number] 75mg Take 1 tablet by mouth in the morning. [facility] ranolazine 500 mg 12 hr tablet 12-20 00:00: 00 03-18 00:00 :00 No [id number] 500mg Take 1 tablet by mouth every 12 (twelve) hours. [facility] polyethylen e glycol 3350 powder 17 g 12-19 17:30: 00 12-21 01:05 :31 No 17g 17 g, Oral, DAILY, First dose on Thu12/20/23 at 1230, Until Discontinu ed, Routine [facility] budesonide- formoteroL (SYMBICORT) 160-4.5 mcg/actuati on inhaler 2 Puff 12-19 13:00: 00 12-21 01:05 :31 No 2{puff} 2 Puff, Inhalation , BID, First dose on Thu12/20/23 at 0800, Until Discontinu ed, Routine [facility] KCL (KLOR-CON M20) tablet 40 mEq 12-19 12:45: 00 12-19 13:27 :00 No 40meq 40 mEq, Oral, ONCE, 1 dose, On 12/20/23 at 0745, Routine [facility] magnesium sulfate in water 2 gram/50 mL (4 %) infusion 2 g 12-19 12:45: 00 12-19 16:34 :00 No 2g 2 g, IV Piggyback, Administer over 60 Minutes, ONCE, 1 dose, On 12/20/23 at 0745, Routine [facility] HEPARIN SODIUM (PORCINE) 1,000 UNIT/ML BOLUS ACS ORDER SET 12-18 16:45: 00 12-18 17:41 :00 No 4000U 4,000 Units, IV Push, ONCE, 1 dose, On 12/19/23 at 1145, [facility] 25,000 Units/250 mL (Premixed Bag) in 0.45 % NS 12-18 16:38: 14 12-21 01:05 :31 No 0U/h 0-2,750 Units/hr (0-27.5 mL/hr), IV Infusion, TITRATE, Parameters in Admin. Instr., Starting on 12/19/23 at 1138, Initiate dosing: -Patient 83 kg or under: 1,000 Units/hr (Calculate d dose at 12 units/kg/h r) -Patient over 83 k,000 units/hr DO NOT Exceed the MAXIMUM 1,000 units/hr for initiation of heparin drip. CAUTION - If LMWH given in ER, AVOID bolus and start next dose/drip 12 hrs after ER dosage. Must program rate using programmab le infusion pump. Check with the ordering provider first prior to any administra tion should the patient be on existing/a dditional anticoagul ant therapy. Range, Dosing and Testing: FOR [facility], AND [facility] ONLY - aPTT < 35: Bolus 5000 units, increase rate 300 units/hr - aPTT 35-44: Bolus 3000 units, increase rate 200 units/hr - aPTT 45-54: Increase rate 100 units/hr - aPTT 55-85: NO CHANGE - aPTT 86-95: Decrease rate 100 units/hr - aPTT 96-120: Hold 30 minutes, decrease rate 150 units/hr - aPTT > 120: Hold 60 minutes, decrease rate 200 units/hr Check aPTT 6 hours after initiation , then Q6H after every change, aPTT Q12H once therapeuti c levels are reached. FOR [facility] ONLY - aPTT < 40: Bolus 5000 units, increase rate 300 units/hr - aPTT 40-49: Bolus 3000 units, increase rate 200 units/hr - aPTT 50-59: Increase rate 100 units/hr - aPTT 60-85: NO CHANGE - aPTT 86-95: Decrease rate 100 units/hr - aPTT 96-120: Hold 30 minutes, decrease rate 150 units/hr - aPTT > 120: Hold 60 minutes, decrease rate 200 units/hr Check aPTT 6 hours after initiation , then Q6H after every change, aPTT Q12H once therapeuti c levels are reached. DO NOT ADJUST INITIAL BOLUS OR INITIAL INFUSION RATE. [facility] heparin (1,000 unit/mL, 10 mL vial) for Rebolusing 12-18 16:38: 08 12-21 01:05 :31 No 3000U FOR REBOLUSING , Starting on 12/19/23 at 1138, Until 12/21/23 at 2005, Routine, Dosing based on aPPT testing parameters (refer to continuous heparin drip order). [facility] tamsulosin (FLOMAX) capsule 0.4 mg 12-18 14:00: 00 12-21 01:05 :31 No .4mg 0.4 mg, Oral, DAILY, First dose on Thu12/19/23 at 0900, Until Discontinu ed, Routine [facility] pantoprazol e (PROTONIX) EC tablet 40 mg 12-18 14:00: 00 12-21 01:05 :31 No 40mg 40 mg, Oral, QAM, First dose on Thu12/19/23 at 0900, Until Discontinu ed, Routine [facility] montelukast (SINGULAIR) tablet 10 mg 12-18 14:00: 00 12-21 01:05 :31 No 10mg 10 mg, Oral, DAILY, First dose on 12/19/23 at 0900, Until Discontinu ed, Routine [facility] metoprolol succinate XL (TOPROL XL) tablet 25 mg 12-18 14:00: 00 12-21 01:05 :31 No 25mg 25 mg, Oral, DAILY, First dose on 12/19/23 at 0900, Until Discontinu ed, Routine [facility] lisinopriL (PRINIVIL,Z ESTRIL) tablet 10 mg 12-18 14:00: 00 12-21 01:05 :31 No 10mg 10 mg, Oral, DAILY, First dose on 12/19/23 at 0900, Until Discontinu ed [facility] cetirizine (ALLERGY RELIEF (CETIRIZINE )) tablet 5 mg 12-18 14:00: 00 12-21 01:05 :31 No 5mg 5 mg, Oral, DAILY, First dose on 12/19/23 at 0900, Until Discontinu ed [facility] isosorbide mononitrate (IMDUR) 24 hr tablet 60 mg 12-18 14:00: 12-21 01:05 :31 No 60mg 60 mg, Oral, DAILY, First dose on 12/19/23 at 0900, Until Discontinu ed, Routine [facility] fluticasone propionate 50 mcg/actuati on nasal spray 1 [place] 12-18 14:00: 12-21 01:05 :31 No 1{spray } 1 [place], Nasal, DAILY, First dose on 12/19/23 at 0900, Until Discontinu ed, Routine [facility] DULoxetine (CYMBALTA) capsule 60 mg 12-18 14:00: 12-21 01:05 :31 No 60mg 60 mg, Oral, DAILY, First dose on 12/19/23 at 0900, Until Discontinu ed, Routine [facility] clopidogreL (PLAVIX) 75 mg tablet 75 mg 12-18 14:00: 00 12-21 01:05 :31 No 75mg 75 mg, Oral, DAILY, First dose on 12/19/23 at 0900, Until Discontinu ed, Rout[facility] aspirin chewable tablet 81 mg 12-18 14:00: 00 12-21 01:05 :31 No 81mg 81 mg, Oral, DAILY, First dose on Thu12/19/23 at 0900, Until Discontinu ed [facility] amLODIPine (NORVASC) tablet 10 mg 12-18 14:00: 00 12-21 01:05 :31 No 10mg 10 mg, Oral, DAILY, First dose on 12/19/23 at 0900, Until Discontinu ed, Rout[facility] aspirin tablet 325 mg 12-18 14:00: 00 12-18 15:06 :35 No 325mg 325 mg, Oral, DAILY, First dose on Thu12/19/23 at 0900, Until Discontinu ed, SYLVIA [facility] perflutren protein-A microsphr (OPTISON) injection 3 mL 12-18 13:45: 00 12-18 13:45 :00 No [id number] 3mL 3 mL, IV Push, ONCE, 1 dose, On Thu12/19/23 at 0845, Routine [facility] glimepiride (AMARYL) tablet 4 mg 12-18 13:00: 00 12-21 01:05 :31 No 4mg 4 mg, Oral, QAM WITH BREAKFAST, First dose on Thu12/19/23 at 0800, Until Discontinu ed, Routine [facility] Sliding Scale Insulin - Lispro (HumaLOG) 12-18 02:00: 00 12-21 01:05 :31 No Subcutaneo us, TID MEALS+HS, First dose on Thu12/18/23 at 2100, Until Discontinu ed, Routine [facility] famotidine (PEPCID) tablet 40 mg 12-18 02:00: 00 12-21 01:05 :31 No 40mg 40 mg, Oral, QHS, First dose on Thu12/18/23 at 2100, Until Discontinu ed, Routine [facility] [facility] atorvastati n (LIPITOR) tablet 40 mg 12-18 02:00: 00 12-21 01:05 :31 No 40mg 40 mg, Oral, QHS, First dose on Thu12/18/23 at 2100, Until Discontinu ed, Routine [facility] gabapentin (NEURONTIN) capsule 400 mg 12-18 01:00: 00 12-21 01:05 :31 No 400mg 400 mg, Oral, TID, First dose on Thu12/18/23 at 2000, Until Discontinu ed, Routine [facility] baclofen (LIORESAL) tablet 10 mg 12-18 01:00: 00 12-21 01:05 :31 No 10mg 10 mg, Oral, BID, First dose on Thu12/18/23 at 2000, Until Discontinu ed, Routine [facility] heparin (porcine) injection 5,000 Units 12-18 01:00: 00 12-18 16:38 :29 No 5000U 5,000 Units, Subcutaneo us, Q12H, First dose on Thu12/18/23 at 2000, Until Discontinu ed, Routine [facility] glucagon HCL injection 1 mg 12-17 23:34: 27 12-21 01:05 :31 No 1mg 1 mg, Intramuscu lar, PRN, Starting on Thu12/18/23 at 1834, Until Thu12/21/23 at 2004, SYLVIA, Low blood sugar, Blood Glucose < or = 70 mg/dL and patient is NPO, unable to swallow or has mental changes. [facility] ity [facility] dextrose 50 % in water (D50W) injection 25 mL 12-17 23:34: 12-21 01:05 :31 No 25mL 25 mL, Slow IV Push, PRN, Starting on Thu12/18/23 at 1834, Until Thu12/21/23 at 2004, SYLVIA, Blood Glucose < or = 70 mg/dL and patient is NPO, unable to swallow or has mental status changes. [facility] acetaminoph en (TYLENOL) tablet 650 mg 12-17 21:17: 18 12-21 01:05 :31 No 650mg 650 mg, Oral, Q6HPRN, Starting on Thu12/18/23 at 1617, Until Thu12/21/23 at 2005, Routine, Pain (scale 1-3) [facility] albuterol (VENTOLIN) inhaler 2 Puff 12-17 21:10: 45 12-21 01:05 :31 No 2{puff} [facility] nitroglycer in (NITROSTAT) sublingual tablet 0.4 mg 12-17 18:30: 00 12-17 18:22 :00 No .4mg 0.4 mg, Sublingual , ONCE, 1 dose, On Thu12/18/23 at 1330, [facility] ondansetron (ZOFRAN (PF)) injection 4 mg 12-17 18:30: 00 12-17 17:28 :00 No 4mg 4 mg, Slow IV Push, ONCE, 1 dose, On Thu12/18/23 at 1330, [facility] NaCl 0.9% (NS) bolus infusion 500 mL 12-17 17:45: 00 12-17 19:11 :00 No 500mL at 999 mL/hr, 500 mL, IV Infusion, ONCE, 1 dose, On Thu12/18/23 at 1245, STAT [facility] nitroglycer in (NITROSTAT) sublingual tablet 0.4 mg 12-17 17:45: 00 12-17 17:59 :00 No .4mg 0.4 mg, Sublingual , ONCE, 1 dose, On Thu12/18/23 at 1245, [facility] tc 99m-tetrofo smin (MYOVIEW) injection 46.4 millicurie 10-26 14:00: 00 10-26 13:55 :00 No [id number] 46.4mCi 46.4 millicurie , Intravenou s, ONCE, 1 dose, On Thu10/27/23 at 0900, Routine [facility] regadenoson (LEXISCAN) injection 0.4 mg 10-26 13:45: 00 10-26 13:47 :00 No [id number] .4mg 0.4 mg, IV Push, ONCE, 1 dose, On Thu10/27/23 at 0845, Routine, tribunal member approving Restricted medication : CATARINA OSUNA [facility] tc 99m-tetrofo smin (MYOVIEW) injection 16.2 millicurie 10-26 12:31: 00 10-26 12:37 :00 No [id number] 16.2mCi 16.2 millicurie , Intravenou s, ONCE, 1 dose, On Thu10/27/23 at 0745, Routine [facility] azelastine 137 mcg (0.1 %) nasal spray 10-21 00:00: 00 Yes [id number] 1{spray } USE 1 SPRAY IN EACH NOSTRIL IN THE MORNING AND 1 SPRAY IN THE EVENING [facility] fluticasone propionate 50 mcg/actuati on nasal spray 10-21 00:00: 00 Yes [id number] 1{spray } USE 1 SPRAY IN EACH NOSTRIL IN THE MORNING [facility] PLAVIX 75 mg tablet 10-19 16:37: 31 10-19 00:00 :00 No 1 tablet Orally Once a day [facility] clopidogreL (PLAVIX) 75 mg tablet 10-19 00:00: 00 12-20 00:00 :00 No 75mg Take 1 tablet by mouth in the morning. [facility] levocetiriz ine 5 mg tablet 08-11 00:00: 00 06-06 00:00 :00 No [id number] 5mg Take 1 tablet by mouth every evening. [facility] azelastine 137 mcg (0.1 %) nasal spray 08-11 00:00: 00 10-21 00:00 :00 No [id number] 1{spray } Use 1 [place] in each nostril in the morning and 1 [place] in the evening. [facility] fluticasone propionate 50 mcg/actuati on nasal spray 08-11 00:00: 00 10-21 00:00 :00 No [id number] 1{spray } Use 1 [place] in each nostril in the morning. [facility] PLAVIX 75 mg tablet 07-02 13:54: 58 Yes 1 tablet Orally Once a day [facility] baclofen 10 mg tablet 07-02 13:54: 58 Yes 10mg Take 1 tablet by mouth in the morning and 1 tablet in the evening. [facility] CYMBALTA 60 mg capsule 07-02 13:54: 58 Yes 60mg 1 capsule. [facility] albuterol 90 mcg/actuati on inhaler 07-02 13:54: 58 Yes 2{puff} Inhale 2 Puffs as needed for Wheezing or Shortness of Breath. [facility] tamsulosin (FLOMAX) 0.4 mg 24 hr capsule 07-02 13:54: 58 Yes .4mg Take 1 capsule by mouth in the morning. [facility] atorvastati n 40 mg tablet 07-02 13:54: 58 12-20 00:00 :00 No 40mg Take 1 tablet by mouth at bedtime. [facility] aspirin 81 mg Cap 07-02 13:54: 58 12-20 00:00 :00 No Take by mouth. [facility] insulin glargine U-300 conc (TOUJEO MAX U-300 SOLOSTAR) 300 unit/mL (3 mL) InPn 07-02 13:54: 58 12-17 00:00 :00 No 25U inject 25 Units under the skin in the morning. [facility] baclofen 10 mg oral tablet 06-29 15:47: 00 Yes 10 mg = 1 tab, PO, BID, # 180 tab, 1 Refill(s), Pharmacy: [facility] [place], 165.1, cm, 06/30/23 9:27:00 [place], Height, 99.091, kg, 06/30/23 9:27:00 [place], Weight Memfrancesca rafaela Pro DULoxetine 60 mg oral delayed release capsule 06-29 15:47: 00 Yes 60 mg = 1 cap, PO, Daily, # 90 cap, 1 Refill(s), Pharmacy: [facility], 165.1, cm, 06/30/23 9:27:00 [place], Height, 99.091, kg, 06/30/23 9:27:00 [place], Weight Memfrancesca rafaela Mast Xyzal 5 mg oral tablet 06-29 15:25: 00 Yes 5 mg =, PO, Bedtime, 0 Refill(s) Memfrancesca Mast Mounjaro 5 mg/0.5 mL subcutaneou s solution 06-29 15:25: 00 Yes 5 mg, SUB-Q, qWeek, 0 Refill(s) Memfrancesca Mast famotidine 40 mg tablet 06-29 00:00: 00 Yes [id number] 40mg Take 1 tablet by mouth at bedtime. [facility] Tirzepatide (Mounjaro) 5 MG/0.5ML solution pen-injecto r Tirzepatide (Mounjaro) 5 MG/0.5ML solution pen-injecto r 06-29 00:00: 00 Yes 5mg 5 mg, SUB-Q, qWeek, 0 Refill(s) Madison Mast Epic baclofen (Lioresal) 10 MG tablet baclofen (Lioresal) 10 MG tablet 06-29 00:00: 00 Yes 10mg 10 mg = 1 tab, PO, BID, # 180 tab, 1 Refill(s), Pharmacy: [facility], 165.1, cm, 06/30/23 9:27:00 [place], Height, 99.091, kg, 06/30/23 9:27:00 [place], Weight Memfrancesca rafaela Mast Epic gabapentin (Neurontin) 400 MG capsule gabapentin (Neurontin) 400 MG capsule 06-29 00:00: 00 Yes 400mg 400 mg = 1 cap, PO, TID, # 270 cap, 1 Refill(s), Pharmacy: [facility] [place], 165.1, cm, 06/30/23 9:27:00 [place], Height, 99.091, kg, 06/30/23 9:27:00 [place], Weight Madison Mast Epic levocetiriz ine (Xyzal Allergy 24HR) 5 MG tablet levocetiriz ine (Xyzal Allergy 24HR) 5 MG tablet 06-29 00:00: 00 03-09 00:00 :00 No 5mg 5 mg =, PO, Bedtime, 0 Refill(s) Madison Mast Epic MOUNJARO 5 mg/0.5 mL subcutaneou s injection 06-19 00:00: 00 Yes [facility] TIR[facility] 12.5 mg/0.5 mL subcutaneou s injection 06-19 00:00: 00 Yes inject under the skin weekly. [facility] neomycin-po lymyxin-hyd rocortisone 3.5-10,000- 1 mg/mL-unit/ mL-% otic susp 06-16 00:00: 00 Yes [facility] pantoprazol e 40 mg EC tablet 06-16 00:00: 00 Yes 40mg Take 1 tablet by mouth every morning. [facility] iopamidol (ISOVUE 370-500 mL) injection 90 mL 05-19 20:45: 00 05-19 19:52 :00 No [id number] 90mL 90 mL, Intravenou s, ONCE, 1 dose, On Thu05/19/23 at 1445, Routine [facility] albuterol 90 mcg/actuati on inhaler 2022-04 09:57: 30 Yes 2{puff} Inhale 2 Puffs as needed for Wheezing or Shortness of Breath. [facility] aspirin 81 mg Cap 2022-04 09:57: 30 Yes Take by mouth. [facility] tamsulosin (FLOMAX) 0.4 mg 24 hr capsule 2022-04 09:57: 30 Yes .4mg Take 1 capsule by mouth in the morning. [facility] atorvastati n 40 mg tablet 2022-04 09:54: 41 Yes 40mg Take 1 tablet by mouth at bedtime. [facility] baclofen 10 mg tablet 2022-04 09:54: 41 Yes 10mg Take 1 tablet by mouth in the morning and 1 tablet in the evening. [facility] PLAVIX 75 mg tablet 2022-04 09:54: 41 Yes 1 tablet Orally Once a day [facility] CYMBALTA 60 mg capsule 2022-04 09:54: 41 Yes 60mg 1 capsule. [facility] insulin glargine U-300 conc (TOUJEO MAX U-300 SOLOSTAR) 300 unit/mL (3 mL) InPn 2022-04 09:54: 41 Yes 25U inject 25 Units under the skin in the morning. [facility] fluticasone propionate 50 mcg/actuati on nasal spray 2022-04 00:00: 00 08-11 00:00 :00 No [id number] 1{spray } Use 1 [place] in each nostril in the morning and 1 [place] in the evening. [facility] azelastine 137 mcg (0.1 %) nasal spray 2022-04 00:00: 00 08-11 00:00 :00 No [id number] 1{spray } Use 1 [place] in each nostril in the morning and 1 [place] in the evening. Use in each nostril as directed [facility] levocetiriz ine 5 mg tablet 2022-04 00:00: 00 08-11 00:00 :00 No [id number] 5mg Take 1 tablet by mouth every evening. [facility] busPIRone 10 mg tablet 2022-04 00:00: 00 Yes [facility] cetirizine 10 mg tablet 2022-04 00:00: 00 03-16 00:00 :00 No TAKE ONE (1) TABLET(S) BY MOUTH IN THE MORNING FOR 14 DAYS. [facility] metoprolol succinate XL 25 mg 24 hr tablet 2022-04 0 00:00: 00 12-31 00:00 :00 No 25mg Take 1 tablet by mouth in the morning. [facility] montelukast 10 mg tablet 01-20 00:00: 00 Yes [facility] isosorbide mononitrate 60 mg 24 hr tablet 01-19 00:00: 00 12-31 00:00 :00 No [facility] baclofen 10 mg oral tablet 12-30 14:28: 00 Yes 10 mg = 1 tab, PO, BID, # 180 tab, 1 Refill(s), Pharmacy: [facility], 165.1, cm, 12/30/22 9:07:00 CDT, Height, 99.545, kg, 12/30/22 9:07:00 CDT, Weight Memoria rafaela Mast DULoxetine 60 mg oral delayed release capsule 12-30 14:28: 00 Yes 60 mg = 1 cap, PO, Daily, # 90 cap, 1 Refill(s), Pharmacy: [facility], 165.1, cm, 12/30/22 9:07:00 CDT, Height, 99.545, kg, 12/30/22 9:07:00 CDT, Weight Memoria rafaela Mast gabapentin 400 mg capsule 12-30 00:00: 00 Yes [facility] DULoxetine 60 mg oral delayed release capsule - 14:24: 00 Yes See Instructio ns, TAKE 1 CAPSULE EVERY DAY, # 90 unknown unit, 1 Refill(s), Pharmacy: [facility], 170.18, cm, 03/11/22 14:41:00 [place], Height, 100, kg, 03/11/22 14:41:00 [place], Weight Memoria l Pro baclofen 10 mg oral tablet 2-08 14:24: 00 Yes See Instructio ns, TAKE 1 TABLET TWICE DAILY, # 180 tab, 1 Refill(s), Pharmacy: [facility], 170.18, cm, 03/11/22 14:41:00 [place], Height, 100, kg, 03/11/22 14:41:00 [place], Weight Memoria l Pro gabapentin 300 mg oral capsule 2021-04 20:58: 00 Yes 300 mg = 1 cap, PO, TID, # 270 cap, 1 Refill(s), Pharmacy: [facility], 170.18, cm, 03/11/22 14:41:00 [place], Height, 100, kg, 03/11/22 14:41:00 [place], Weight Memoria l Pro gabapentin 300 mg oral capsule 01-16 00:30: 00 Yes 600 mg = 2 cap, PO, Bedtime, # 180 cap, 1 Refill(s), Pharmacy: [facility], 170.18, cm, 11/07/21 15:46:00 CDT, Height, 98.636, kg, 11/07/21 15:46:00 CDT, Weight Memoria l Pro DULoxetine 60 mg oral delayed release capsule 01-16 00:29: 00 Yes 60 mg = 1 cap, PO, Daily, # 90 cap, 1 Refill(s), Pharmacy: [facility], 170.18, cm, 11/07/21 15:46:00 CDT, Height, 98.636, kg, 11/07/21 15:46:00 CDT, Weight Memoria l Pro baclofen 10 mg oral tablet 01-16 00:28: 00 Yes 10 mg = 1 tab, PO, BID, # 180 tab, 1 Refill(s), Pharmacy: [facility], 170.18, cm, 11/07/21 15:46:00 CDT, Height, 98.636, kg, 11/07/21 15:46:00 CDT, Weight Memoria l Pro Gralise 600 mg/24 hours oral tablet 11-07 21:00: 00 Yes 600 mg = 1 tab, PO, Bedtime, # 30 tab, 1 Refill(s), [id number] 170.18, cm, 11/07/21 15:46:00 CDT, Height, 98.636, kg, 11/07/21 15:46:00 CDT, Weight Madison Mast Trimix 10-01 22:04: 00 Yes Trimix, 6 units, intraCAVER NOSAL, Q24H, PRN sexual intercours e, Papaverine 30mg/mL, Phentolami ne 1mg/mL, Prostaglan din E1 10mcg/mL. 5 mL vial, # 5 mL, Refill(s) 0, Pharmacy: [facility], 170.18, cm, 09/16/21 14:27:00 CDT, Height, 101.563, kg, .. Memfrancesca Pelaezumoniqueo Irvin SoloStar 10-01 21:06: 00 Yes SUB-Q, Daily, 0 Refill(s) Memfrancesca Mast baclofen 10 mg oral tablet 09-16 19:41: 00 Yes 10 mg = 1 tab, PO, TID, 0 Refill(s) Memfrancesca Mast Flomax 0.4 mg oral capsule 09-16 19:40: 00 Yes 0.4 mg = 1 cap, PO, Daily, 0 Refill(s) Madison Mast Basaglar KwikPen 09-16 19:40: 00 Yes 10 unit, SUB-Q, Daily, 0 Refill(s) Memfrancesca Mast Plavix 75 mg oral tablet 09-16 19:39: 00 Yes 75 mg = 1 tab, PO, Daily, 0 Refill(s) Memfrancesca Mast Lipitor 40 mg oral tablet 09-16 19:39: 00 Yes 40 mg = 1 tab, PO, Daily, 0 Refill(s) Memfrancesca Mast DULoxetine 60 mg oral delayed release capsule 09-16 16:44: 00 Yes See Instructio ns, TAKE 1 CAPSULE BY MOUTH EVERY DAY, # 30 unknown unit, 1 Refill(s), [id number] 167.64, cm, 08/20/21 15:12:00 CDT, Height, 101.506, kg, 08/20/21 15:12:00 CDT, Weight Madison Mast atorvastati n (Lipitor) 40 MG tablet atorvastati n (Lipitor) 40 MG tablet 09-16 00:00: 00 Yes 40mg 40 mg = 1 tab, PO, Daily, 0 Refill(s) Madison Herrera clopidogrel (Plavix) 75 MG tablet clopidogrel (Plavix) 75 MG tablet 09-16 00:00: 00 03-09 00:00 :00 No 75mg 75 mg = 1 tab, PO, Daily, 0 Refill(s) Madison Herrera Ativan 0.5 mg oral tablet 06-28 00:19: 00 Yes See Instructio ns, Take 1 tab po 1 hour prior to MRI, may repeat q 15 min. if still anxious, # 5 tab, 0 Refill(s), Pharmacy: [facility] #[id number], 162.56, cm, 06/25/21 13:26:00 [place], Height, 98.636, kg, 06/25/21 13:26:00 [place], Weight Madison Mast DULoxetine 60 mg oral delayed release capsule 2020-04- 19:26: 00 Yes See Instructio ns, TAKE ONE (1) CAPSULE(S) BY MOUTH ONCE A DAY., # 30 ea, 5 Refill(s), Pharmacy: [id number], 167.64, cm, 11/16/20 15:25:00 CDT, Height, 100, kg, 11/16/20 15:25:00 CDT, Weight Madison Mast casirivimab -imdevimab (REGEN-COV (EUA)) 1,200 mg in NaCl 0.9% (NS) 60 mL IV infusion 12-11 19:45: 00 12-11 20:04 :00 No [id number] 1200mg [facility] casirivimab -imdevimab (REGEN-COV (EUA)) 1,200 mg in NaCl 0.9% (NS) 60 mL IV infusion 12-11 19:45: 00 12-11 20:04 :00 No [id number] 1200mg 1,200 mg, IV Infusion, ONCE, e 12/11/20 at 1445, For 1 dose
Ad turning sander tender as an IV infusion via pump or gravity over at least 60 minutes through an intravenou s line containing a sterile, in-line or add-on 0.2-micron polyethers ulfone (PES) filter.&nb sp;Stable 36 hours refrigerat ed; 4 hours at room temperatur e. &nbs p;
[facility] sodium chloride (NS) injection 11-28 14:31: 00 Yes PRN, Starting Thu11/28/20 at 0931, Until Discontinu ed, Routine, Intra-op [facility] neomycin-po lymyxin-dex amethasone (MAXITROL) 3.5 mg/g-10,000 unit/g-0.1 % ophthalmic ointment 11-28 14:30: 00 Yes PRN, Starting Thu11/28/20 at 0930, Until Discontinu ed, Routine, Intra-op [facility] Hyaluronida se, Human Recomb. (HYLENEX) injection 11-28 14:30: 00 Yes PRN, Starting Thu11/28/20 at 0930, Until Discontinu ed, Routine, Intra-op [facility] water for irrigation irrigation solution 11-28 14:29: 00 Yes PRN, Starting Thu11/28/20 at 0929, Until Discontinu ed, Routine, Intra-op [facility] eye block syringe 11 mL 11-28 14:26: 00 Yes PRN, Starting Thu11/28/20 at 0926, Until Discontinu ed, Intra-op [facility] EPINEPHrine 1:1,000 (1 mg/mL) (ADRENALIN) injection 11-28 14:22: 00 Yes PRN, Starting Thu11/28/20 at 0922, Until Discontinu ed, Routine, Intra-op [facility] DUOVISC (DUOVISC VISCO ELASTIC) 3 %-4 %(0.5 mL) 1 % (0.55 mL) intraocular injection 11-28 14:22: 00 Yes PRN, Starting Thu11/28/20 at 0922, Until Discontinu ed, Routine, Intra-op [facility] dexamethaso ne (DECADRON PHOSPHATE) injection 11-28 14:22: 00 Yes PRN, Starting Thu11/28/20 at 0922, Until Discontinu ed, Routine, Intra-op [facility] carbachoL (MIOSTAT) 0.01 % intraocular injection 11-28 14:22: 00 Yes PRN, Starting Thu11/28/20 at 0922, Until Discontinu ed, Routine, Intra-op [facility] balanced salt irrig soln comb1 (BSS PLUS) ophthalmic solution 500 mL bag 11-28 14:21: 00 Yes PRN, Starting Thu11/28/20 at 0921, Until Discontinu ed, Routine, Intra-op [facility] mydriatic #5 ophthalmic solution 0.5 mL syringe 11-28 13:30: 00 11-28 13:36 :00 No .5mL 0.5 mL, Left Eye, ONCE, 1 dose, Thu11/28/20 at 0830, Routine, DSU Pre-op [facility] lactated ringers IV infusion 1,000 mL 11-28 13:30: 00 11-28 13:36 :00 No 1000mL at 42 mL/hr, 1,000 mL, IV Infusion, ONCE, 1 dose, Thu11/28/20 at 0830, Routine, DSU Pre-op [facility] water for irrigation irrigation solution 11-14 13:07: 00 Yes PRN, Starting Thu11/14/20 at 0807, Until Discontinu ed, Routine, Intra-op [facility] neomycin-po lymyxin-dex amethasone (MAXITROL) 3.5 mg/g-10,000 unit/g-0.1 % ophthalmic ointment 11-14 13:06: 00 Yes PRN, Starting Thu11/14/20 at 0806, Until Discontinu ed, Routine, Intra-op [facility] DUOVISC (DUOVISC VISCO ELASTIC) 3 %-4 %(0.5 mL) 1 % (0.55 mL) intraocular injection 11-14 13:06: 00 Yes PRN, Starting Thu11/14/20 at 0806, Until Discontinu ed, Routine, Intra-op [facility] dexamethaso ne (DECADRON PHOSPHATE) injection 11-14 13:06: 00 Yes PRN, Starting Thu11/14/20 at 0806, Until Discontinu ed, Routine, Intra-op [facility] carbachoL (MIOSTAT) 0.01 % intraocular injection 11-14 13:06: 00 Yes PRN, Starting Thu11/14/20 at 0806, Until Discontinu ed, Routine, [facility] balanced salt irrig soln comb1 (BSS PLUS) ophthalmic solution 500 mL bag 11-14 13:05: 00 Yes PRN, Starting Thu11/14/20 at 0805, Until Discontinu ed, Routine, Intra-op [facility] Hyaluronida se, Human Recomb. (HYLENEX) injection 11-14 13:02: 00 Yes PRN, Starting Thu11/14/20 at 0802, Until Discontinu ed, Routine, Intra-op [facility] eye block syringe 11 mL 11-14 13:02: 00 Yes PRN, Starting Thu11/14/20 at 0802, Until Discontinu ed, Intra-op [facility] mydriatic #5 ophthalmic solution 0.5 mL syringe 11-14 12:15: 00 11-14 12:18 :00 No .5mL 0.5 mL, Right Eye, ONCE, 1 dose, Thu11/14/20 at 0715, Routine, DSU Pre-op [facility] lactated ringers IV infusion 1,000 mL 11-14 12:15: 00 11-14 12:18 :00 No 1000mL at 42 mL/hr, 1,000 mL, IV Infusion, ONCE, 1 dose, Thu11/14/20 at 0715, Routine, [facility] Brilinta 09-28 21:25: 00 Yes PO, BID, 0 Refill(s) Memoria rafaela Mast Brilinta (ticagrelor ) 09-28 21:25: 00 Yes PO, BID, 0 Refill(s) Memfrancesca Mast gabapentin 300 MG Oral Capsule 06-14 15:35: 00 Yes 300 mg = 1 cap, PO, Bedtime, # 30 cap, 3 Refill(s), [id number], 167.64, cm, 06/14/20 9:23:00 [place], Height, 96.818, kg, 06/14/20 9:23:00 [place], Weight Memfrancesca Mast baclofen 10 mg oral tablet 06-14 15:35: 00 Yes = 1 tab, PO, BID, # 60 tab, 4 Refill(s), Pharmacy: [facility] #[id number], 167.64, cm, 06/14/20 9:23:00 [place], Height, 96.818, kg, 06/14/20 9:23:00 [place], Weight Memoria rafaela Mast DULoxetine 60 mg oral delayed release capsule 06-14 15:34: 00 Yes 60 mg = 1 cap, PO, Daily, # 30 cap, 3 Refill(s), Pharmacy: [facility] #[id number], 167.64, cm, 06/14/20 9:23:00 [place], Height, 96.818, kg, 06/14/20 9:23:00 [place], Weight Memfrancesca Mast isosorbide dinitrate extended release 06-14 15:33: 00 No 40 mg, PO, Daily, 0 Refill(s) Memoria l Pro Isosorbide 06-14 15:33: 00 Yes PO, 0 Refill(s) Memoria l [place] isosorbide mononitrate 06-14 15:33: 00 Yes PO, 0 Refill(s) Memoria rafaela Mast DULoxetine 60 mg oral delayed release capsule 12-15 22:56: 00 Yes 60 mg = 1 cap, PO, Daily, # 30 cap, 3 Refill(s), Pharmacy: [facility][id number], 167.64, cm, 10/26/19 14:53:00 CDT, Height, 92.727, kg, 10/26/19 14:53:00 CDT, Weight Madison Mast DULoxetine 30 mg oral delayed release capsule 11-21 14:48: 00 No = 1 cap, PO, Daily, # 30 cap, 0 Refill(s), Pharmacy: [facility] #[id number], 167.64, cm, 10/26/19 14:53:00 CDT, Height, 92.727, kg, 10/26/19 14:53:00 CDT, Weight Madison Mast duloxetine 30 MG Enteric Coated Capsule [Cymbalta] 09-27 20:56: 00 Yes 30 mg = 1 cap, PO, Daily, # 30 cap, 1 Refill(s), Pharmacy: [id number] [place] Mast baclofen 10 mg oral tablet 09-27 20:56: 00 Yes 10 mg = 1 tab, PO, BID, # 60 tab, 2 Refill(s), Pharmacy: [facility] #[id number] Evelynfrancesca Mast lisinopril 40 mg oral tablet 09-27 19:59: 00 Yes 0 Refill(s) Evelynfrancesca Mast Metformin hydrochlori de 500 MG Oral Tablet 09-27 19:59: 00 No 0 Refill(s) Evelynfrancesca rafaela Pro glimepiride 2 mg oral tablet 09-27 19:59: 00 No 0 Refill(s) Memfrancesca rafaela Pro amLODIPine 10 mg oral tablet 09-27 19:59: 00 Yes 0 Refill(s) Memfrancesca rafaela [place] lisinopril 40 MG tablet lisinopril 40 MG tablet 09-27 00:00: 00 Yes 5mg 5 mg. Memfrancesca Mast Epic Aspirin 81 MG Enteric Coated Tablet 09-22 14:22: 00 Yes 81 mg = 1 tab, PO, Daily, # 90 tab, 3 Refill(s), other Memfrancesca Mast aspirin 81 mg tablet, enteric coated 09-22 14:22: 00 Yes 81 mg = 1 tab, PO, Daily, # 90 tab, 3 Refill(s), other Evelynfrancesca rafaela Pro gabapentin 300 MG Oral Capsule 09-22 14:21: 00 Yes 300 mg = 1 cap, PO, Bedtime, # 30 cap, 3 Refill(s), Pharmacy: [facility] #[id number] Evelynfrancesca rafaela Pro aspirin EC 81 MG EC tablet aspirin EC 81 MG EC tablet 09-22 00:00: 00 Yes 81mg 81 mg = 1 tab, PO, Daily, # 90 tab, 3 Refill(s), other Evelynfrancesca rafaela Mast Epic pravastatin 20 mg oral tablet 09-21 14:59: 00 Yes 20 mg = 1 tab, PO, Bedtime, # 30 tab, 0 Refill(s) Evelynfrancesca rafaela Mast Lisinopril 09-21 14:50: 00 Yes 40 mg, PO, Daily, 0 Refill(s) [place] Mast Amlodipine 09-21 14:50: 00 Yes 10 mg, PO, Daily, 0 Refill(s) Evelynfrancesca rafaela Mast Metformin 09-21 14:50: 00 Yes 500 mg, PO, BID, 0 Refill(s) Evelynfrancesca rafaela Mast glimepiride 09-21 14:50: 00 Yes 2 mg, PO, Daily, 0 Refill(s) Evelynfrancesca rafaela Mast metFORMIN 09-21 14:50: 00 Yes 500 mg, PO, BID, 0 Refill(s) Evelynfrancesca rafaela Mast glimepiride 09-21 14:50: 00 Yes 2 mg, PO, Daily, 0 Refill(s) Evelynfrancesca rafaela Mast GLIMEPIRIDE PO GLIMEPIRIDE PO 09-21 00:00: 00 03-09 00:00 :00 No 2mg 2 mg, PO, Daily, 0 Refill(s) [place] Mast Epic benzonatate (TESSALON PERLES) 100 mg capsule 07 00:00: 00 08-16 04:59 :00 No [id number] 100mg Take 1 capsule by mouth 3 (three) times daily for 14 days. [facility] [place] [facility] maalox:diph enhydrAMINE :lidocaine 2 % viscous 1:1:1 08-01 00:00: 00 08-07 04:59 :00 No [id number] 10mL Take 10 mL by mouth as needed for Oral mucositis for up to 5 days. [facility] azithromyci n (ZITHROMAX Z-DOMINIK) 250 mg tablet 08-01 00:00: 08-07 04:59 :00 No [id number] 250mg Take 1 tablet by mouth daily for 5 days. Take 500 mg day 1, then 250 mg days 2 to 5. [facility] amLODIPine 10 mg tablet 07-17 00:00: 00 12-31 00:00 :00 No TK 1 T PO QAM. [facility] lisinopril 40 mg tablet 07-03 00:00: 00 Yes 10mg Take 10 mg by mouth in the morning. [facility] lisinopriL 10 mg tablet 07-03 00:00: 00 12-31 00:00 :00 No 10mg Take 1 tablet by mouth in the morning. [facility] pravastatin 20 mg tablet 07-03 00:00: 00 07-02 00:00 :00 No TK 1 T PO QHS [facility] metFORMIN 500 mg tablet 05-13 00:00: 00 Yes TK 2 TS PO BID [facility] glimepiride 2 mg tablet 05-13 00:00: 00 Yes 4mg Take 2 tablets by mouth daily with breakfast. [facility] Terbinafine HCl 250 MG Terbinafine HCl 250 MG No Terbinafin e HCl 250 MG Albuterol Sulfate HFA 108 (90 Base) MCG/ACT Albuterol Sulfate HFA 108 (90 Base) MCG/ACT No Albuterol Sulfate HFA 108 (90 Base) MCG/ACT predniSONE 20 MG predniSONE 20 MG No predniSONE 20 MG Sulfamethox azole-Trime thoprim 800-160 MG Sulfamethox azole-Trime thoprim 800-160 MG No Sulfametho xazole-Tri methoprim 800-160 MG Mounjaro 12.5 MG/0.5ML Mounjaro 12.5 MG/0.5ML No Mounjaro 12.5 MG/0.5ML Mupirocin 2 % Mupirocin 2 % No Mupirocin 2 % Breztri Aerosphere 160-9-4.8 MCG/ACT Breztri Aerosphere 160-9-4.8 MCG/ACT No 2{puffs } BID Breztri Aerosphere 160-9-4.8 MCG/ACT Multivitami n - Multivitami n - No 1{table t} QD Multivitam in - Metoprolol Succinate 50 MG Metoprolol Succinate 50 MG No 1{capsu le} QD Metoprolol Succinate 50 MG Lisinopril 5 MG Lisinopril 5 MG No 1{table t} QD Lisinopril 5 MG Glimepiride 4 MG Glimepiride 4 MG No 1{table t} QD Glimepirid e 4 MG Gabapentin 400 MG Gabapentin 400 MG No 1{capsu le} QD Gabapentin 400 MG Ranolazine ER 500 MG Ranolazine ER 500 MG No 1{table t} BID Ranolazine ER 500 MG Tamsulosin HCl 0.4 MG Tamsulosin HCl 0.4 MG No 1{capsu le} QD Tamsulosin HCl 0.4 MG Aricept 10 MG Aricept 10 MG No 1{table t_at_be dtime} QD Aricept 10 MG Singulair 10 MG Singulair 10 MG No 1{table t} QD Singulair 10 MG busPIRone HCl 30 MG busPIRone HCl 30 MG No 1{table t} BID busPIRone HCl 30 MG Immunizations Ordered Immunization Name Filled Immunization Name Date Status Comments Source Influenza, adjuvanted, trivalent, PF (FLUAD) 2024-01-01 00:00:00 Completed [facility] SARS-COV-2 COVID-19 ANGELO/J&J VACCINE 2020-09-03 00:00:00 Completed [facility] SARS-COV-2 COVID-19 ANGELO/J&J VACCINE 2020-09-03 00:00:00 Completed [facility] SARS-COV-2 COVID-19 ANGELO/J&J VACCINE 2020-09-03 00:00:00 Completed [facility] SARS-COV-2 COVID-19 ANGELO/J&J VACCINE 2020-09-03 00:00:00 Completed [facility] SARS-COV-2 COVID-19 ANGELO/J&J VACCINE 2020-09-03 00:00:00 Completed [facility] SARS-COV-2 COVID-19 ANGELO/J&J VACCINE 2020-09-03 00:00:00 Completed [facility] SARS-COV-2 COVID-19 ANGELO/J&J VACCINE 2020-09-03 00:00:00 Completed [facility] SARS-COV-2 COVID-19 ANGELO/J&J VACCINE 2020-09-03 00:00:00 Completed [facility] SARS-COV-2 COVID-19 ANGELO/J&J VACCINE 2020-09-03 00:00:00 Completed [facility] SARS-COV-2 COVID-19 ANGELO/J&J VACCINE 2020-09-03 00:00:00 Completed [facility] SARS-COV-2 COVID-19 ANGELO/J&J VACCINE 2020-09-03 00:00:00 Completed [facility] SARS-COV-2 COVID-19 ANGELO/J&J VACCINE 2020-09-03 00:00:00 Completed [facility] SARS-COV-2 COVID-19 ANGELO/J&J VACCINE 2020-09-03 00:00:00 Completed [facility] SARS-COV-2 COVID-19 ANGELO/J&J VACCINE Unknown Completed [facility] SARS-COV-2 COVID-19 ANGELO/J&J VACCINE Unknown Completed [facility] SARS-COV-2 COVID-19 ANGELO/J&J VACCINE Unknown Completed [facility] SARS-COV-2 COVID-19 ANGELO/J&J VACCINE Unknown Completed [facility] SARS-COV-2 COVID-19 ANGELO/J&J VACCINE Unknown Completed [facility] SARS-COV-2 COVID-19 ANGELO/J&J VACCINE Unknown Completed [facility] SARS-COV-2 COVID-19 ANGELO/J&J VACCINE Unknown Completed [facility] SARS-COV-2 COVID-19 ANGELO/J&J VACCINE Unknown Completed [facility] SARS-COV-2 COVID-19 ANGELO/J&J VACCINE Unknown Completed [facility] SARS-COV-2 COVID-19 ANGELO/J&J VACCINE Unknown Completed [facility] SARS-COV-2 COVID-19 ANGELO/J&J VACCINE Unknown Completed [facility] SARS-COV-2 COVID-19 ANGELO/J&J VACCINE Unknown Completed [facility] SARS-COV-2 COVID-19 ANGELO/J&J VACCINE Unknown Completed [facility] Influenza, adjuvanted, trivalent, PF (FLUAD) Unknown Completed [facility] SARS-COV-2 COVID-19 ANGELO/J&J VACCINE Unknown Completed [facility] SARS-COV-2 COVID-19 ANGELO/J&J VACCINE Unknown Completed [facility] SARS-COV-2 COVID-19 ANGELO/J&J VACCINE Unknown Completed [facility] SARS-COV-2 COVID-19 ANGELO/J&J VACCINE Unknown Completed [facility] SARS-COV-2 COVID-19 ANGELO/J&J VACCINE Unknown Completed [facility] SARS-COV-2 COVID-19 ANGELO/J&J VACCINE Unknown Completed [facility] SARS-COV-2 COVID-19 ANGELO/J&J VACCINE Unknown Completed [facility] SARS-COV-2 COVID-19 ANGELO/J&J VACCINE Unknown Completed [facility] SARS-COV-2 COVID-19 ANGELO/J&J VACCINE Unknown Completed [facility] SARS-COV-2 COVID-19 ANGELO/J&J VACCINE Unknown Completed [facility] SARS-COV-2 COVID-19 ANGELO/J&J VACCINE Unknown Completed [facility] SARS-COV-2 COVID-19 ANGELO/J&J VACCINE Unknown Completed [facility] SARS-COV-2 COVID-19 ANGELO/J&J VACCINE Unknown Completed [facility] SARS-COV-2 COVID-19 ANGELO/J&J VACCINE Unknown Completed [facility] SARS-COV-2 COVID-19 ANGELO/J&J VACCINE Unknown Completed [facility] SARS-COV-2 COVID-19 ANGELO/J&J VACCINE Unknown Completed [facility] SARS-COV-2 COVID-19 ANGELO/J&J VACCINE Unknown Completed [facility] SARS-COV-2 COVID-19 ANGELO/J&J VACCINE Unknown Completed [facility] SARS-COV-2 COVID-19 ANGELO/J&J VACCINE Unknown Completed [facility] Vital Signs Vital Name Observation Time Observation Value Comments S piter height 2024-11-10 10:00:00 66 [in_i] Commo n [facility] weight 2024-11-10 10:00:00 199 [lb_av] Comm on [facility] temperature 2024-11-10 10:00:00 98.4 [degF] Com [facility] bmi 2024-11-10 10:00:00 32.12 kg/m2 Comm on [facility] blood pressure systolic 2024-11-10 10:00:00 126 mm[Hg] Common [facility] blood pressure diastolic 2024-11-10 10:00:00 84 mm[Hg] [facility] blood pressure systolic 2024-10-25 14:30:00 124 mm[Hg] [facility] blood pressure diastolic 2024-10-25 14:30:00 84 mm[Hg] [facility] height 2024-10-25 14:30:00 66 [in_i] Commo n [facility] weight 2024-10-25 14:30:00 199 [lb_av] Comm on [facility] temperature 2024-10-25 14:30:00 98.6 [degF] Com [facility] bmi 2024-10-25 14:30:00 32.12 kg/m2 Comm on [facility] height 2024-09-27 11:00:00 66 [in_i] Commo n [facility] weight 2024-09-27 11:00:00 199.4 [lb_av] Co mmon [facility] temperature 2024-09-27 11:00:00 97.8 [degF] Com mon [facility] bmi 2024-09-27 11:00:00 32.18 kg/m2 Comm on [facility] blood pressure systolic 2024-09-27 11:00:00 124 mm[Hg] [facility] blood [facility] diastolic 2024-09-27 11:00:00 82 mm[Hg] Common [facility] height 2024-09-12 15:00:00 66 [in_i] Commo n [facility] weight 2024-09-12 15:00:00 199.6 [lb_av] Co mmon [facility] temperature 2024-09-12 15:00:00 98.1 [degF] Com [facility] bmi 2024-09-12 15:00:00 32.21 kg/m2 Comm on [facility] blood pressure systolic 2024-09-12 15:00:00 126 mm[Hg] [facility] blood pressure diastolic 2024-09-12 15:00:00 74 mm[Hg] [facility] Systolic blood pressure 2024-08-05 16:08:00 119 mm[Hg] [facility] Diastolic blood pressure 2024-08-05 16:08:00 75 mm[Hg] [facility] Heart rate 2024-08-05 16:08:00 70 /min [facility] 2024-08-05 16:08:00 17 /min [facility] Body height 2024-08-05 16:08:00 162.6 cm [facility] Body weight 2024-08-05 16:08:00 88.724 kg [facility] BMI 2024-08-05 16:08:00 33.57 kg/m2 [facility] Oxygen saturation in Arterial blood by Pulse oximetry 2024-08-05 16:08:00 97 /min [facility] Systolic blood pressure 2024-04-05 14:31:00 127 mm[Hg] [facility] Diastolic blood pressure 2024-04-05 14:31:00 76 mm[Hg] [facility] Heart rate 2024-04-05 14:31:00 61 /min [facility] Body height 2024-04-05 14:31:00 [facility].1 cm [facility] Body weight 2024-04-05 14:31:00 92.262 [facility] BMI 2024-04-05 14:31:00 33.85 kg/m2 [facility] Oxygen saturation in Arterial blood by Pulse oximetry 2024-04-05 14:31:00 97 /min [facility] Systolic blood pressure 2024-03-18 16:33:00 125 mm[Hg] [facility] Diastolic blood pressure 2024-03-18 16:33:00 70 mm[Hg] [facility] Heart rate 2024-03-18 16:33:00 62 /min [facility] Body temperature 2024-03-18 16:33:00 36.83 Krystal [facility] Respiratory rate 2024-03-18 16:33:00 16 /min [facility] Body height 2024-03-18 16:33:00 162.6 cm [facility] Body weight 2024-03-18 16:33:00 92.035 kg [facility] BMI 2024-03-18 16:33:00 34.83 kg/m2 [facility] Oxygen saturation in Arterial blood by Pulse oximetry 2024-03-18 16:33:00 96 /min [facility] Systolic blood pressure 2024-03-09 15:20:00 121 mm[Hg] [facility] Diastolic blood pressure 2024-03-09 15:20:00 66 mm[Hg] [facility] Heart rate 2024-03-09 15:20:00 77 /min Evelynor stephanie [facility] Body temperature 2024-03-09 15:20:00 36.78 Krystal [facility] Epic Respiratory rate 2024-03-09 15:20:00 16 /min [facility] Body height 2024-03-09 15:20:00 166.4 cm Trino Tavarezann [facility] Body weight 2024-03-09 15:20:00 90.719 kg Trino Tavarezann [facility] BMI 2024-03-09 15:20:00 32.78 kg/m2 Trino Tavarezann [facility] Oxygen saturation in Arterial blood by Pulse oximetry 2024-03-09 15:20:00 96 /min [facility] Systolic blood pressure 2024-03-09 15:20:00 121 mm[Hg] [facility] Diastolic blood pressure 2024-03-09 15:20:00 66 mm[Hg] [facility] Epic Heart rate 2024-03-09 15:20:00 77 /min [facility] Body temperature 2024-03-09 15:20:00 36.78 Krystal [facility] Respiratory rate 2024-03-09 15:20:00 16 /min [facility] Body height 2024-03-09 15:20:00 166.4 cm Trino Tavarezann [facility] Body weight 2024-03-09 15:20:00 90.719 kg Trino Mast Epic BMI 2024-03-09 15:20:00 32.78 kg/m2 Trino Tavarezann Epic Oxygen saturation in Arterial blood by Pulse oximetry 2024-03-09 15:20:00 96 /min [facility] Systolic blood pressure 2024-01-01 14:27:00 130 mm[Hg] [facility] Diastolic blood pressure 2024-01-01 14:27:00 74 mm[Hg] [facility] Heart rate 2024-01-01 14:27:00 65 /min [facility] 2024-01-01 14:27:00 18 /min [facility] Body height 2024-01-01 14:27:00 167.6 cm [facility] Body weight 2024-01-01 14:27:00 89.903 kg [facility] BMI 2024-01-01 14:27:00 31.99 kg/m2 [facility] Oxygen saturation in Arterial blood by Pulse oximetry 2024-01-01 14:27:00 97 /min [facility] Systolic blood pressure 2023-12-21 20:53:00 110 mm[Hg] [facility] Diastolic blood pressure 2023-12-21 20:53:00 63 mm[Hg] [facility] Heart rate 2023-12-21 20:53:00 80 /min [facility] Body temperature 2023-12-21 20:53:00 36.56 Krystal [facility] Respiratory rate 2023-12-21 20:53:00 14 /min [facility] Oxygen saturation in Arterial blood by Pulse oximetry 2023-12-21 20:53:00 94 /min [facility] Body height 2023-12-21 13:51:32 167.6 cm [facility] Body weight 2023-12-21 13:51:32 88.5 kg [facility] BMI 2023-12-21 13:51:32 31.51 kg/m2 [facility] Systolic blood pressure 2023-12-21 11:09:00 134 mm[Hg] [facility] Diastolic blood pressure 2023-12-21 11:09:00 68 mm[Hg] [facility] Heart rate 2023-12-21 11:09:00 58 /min [facility] Respiratory rate 2023-12-21 11:09:00 18 /min [facility] Oxygen saturation in Arterial blood by Pulse oximetry 2023-12-21 11:09:00 98 /min [facility] Body temperature 2023-12-21 08:08:00 36.61 Krystal [facility] Body height 2023-12-19 17:30:00 167.6 cm [facility] Body weight 2023-12-19 17:30:00 88.5 kg [facility] BMI 2023-12-19 17:30:00 31.51 kg/m2 [facility] Systolic blood pressure 2023-09-11 14:11:00 117 mm[Hg] [facility] Diastolic blood pressure 2023-09-11 14:11:00 72 mm[Hg] [facility] Heart rate 2023-09-11 14:11:00 70 /min [facility] Respiratory rate 2023-09-11 14:11:00 18 /min [facility] Body height 2023-09-11 14:11:00 167.6 cm [facility] 2023-09-11 14:11:00 92.398 kg Univ [facility] BMI 2023-09-11 14:11:00 32.88 kg/m2 [facility] Oxygen saturation in Arterial blood by Pulse oximetry 2023-09-11 14:11:00 99 /min [facility] Systolic blood pressure 2023-07-03 19:50:00 119 mm[Hg] [facility] Diastolic blood pressure 2023-07-03 19:50:00 65 mm[Hg] [facility] Heart rate 2023-07-03 19:50:00 88 /min [facility] Body temperature 2023-07-03 19:50:00 37.28 Krystal [facility] Respiratory rate 2023-07-03 19:50:00 20 /min [facility] Body height 2023-07-03 19:50:00 167.6 cm [facility] Body weight 2023-07-03 19:50:00 98.431 kg [facility] BMI 2023-07-03 19:50:00 35.02 kg/m2 [facility] Oxygen saturation in Arterial blood by Pulse oximetry 2023-07-03 19:50:00 93 /min [facility] Body temperature 2023-06-22 19:08:00 36.61 Krystal [facility] Body height 2023-06-22 19:08:00 167.6 cm [facility] Body weight 2023-06-22 19:08:00 98.839 kg [facility] BMI 2023-06-22 19:08:00 35.17 kg/m2 [facility] Systolic blood pressure 2023-03-16 15:48:00 136 mm[Hg] [facility] Diastolic blood pressure 2023-03-16 15:48:00 75 mm[Hg] [facility] Heart rate 2023-03-16 15:48:00 72 /min [facility] Respiratory rate 2023-03-16 15:48:00 18 /min [facility] Body height 2023-03-16 15:48:00 167.6 cm [facility] Body weight 2023-03-16 15:48:00 98.793 kg [facility] BMI 2023-03-16 15:48:00 35.15 kg/m2 [facility] Oxygen saturation in Arterial blood by Pulse oximetry 2023-03-16 15:48:00 96 /min [facility] height 2021-05-01 13:00:00 66 [in_i] Commo n [facility] weight 2021-05-01 13:00:00 223.8 [lb_av] Co mmon [facility] temperature 2021-05-01 13:00:00 98.3 [degF] Com mon [facility] bmi 2021-05-01 13:00:00 36.12 kg/m2 Comm on [facility] oximetry 2021-05-01 13:00:00 97 % Commo n [facility] respiratory rate 2021-05-01 13:00:00 18 /min [facility] blood pressure systolic 2021-05-01 13:00:00 135 mm[Hg] [facility] blood pressure diastolic 2021-05-01 13:00:00 75 mm[Hg] [facility] Systolic blood pressure 2020-12-11 21:08:00 105 mm[Hg] [facility] Diastolic blood pressure 2020-12-11 21:08:00 45 mm[Hg] [facility] Heart rate 2020-12-11 21:08:00 79 [facility] 2020-12-11 21:08:00 38.83 Krystal [facility] Respiratory rate 2020-12-11 21:08:00 22 /min [facility] Oxygen saturation in Arterial blood by Pulse oximetry 2020-12-11 21:08:00 98 /min [facility] Body height 2020-12-11 18:41:00 167.6 cm [facility] Body weight 2020-12-11 18:41:00 97.07 kg [facility] BMI 2020-12-11 18:41:00 34.54 kg/m2 [facility] Systolic blood pressure 2020-11-28 15:00:00 128 mm[Hg] [facility] Diastolic blood pressure 2020-11-28 15:00:00 67 mm[Hg] [facility] Heart rate 2020-11-28 15:00:00 59 /min [facility] Respiratory rate 2020-11-28 15:00:00 13 /min [facility] Oxygen saturation in Arterial blood by Pulse oximetry 2020-11-28 15:00:00 100 /min [facility] Body temperature 2020-11-28 14:50:00 36.33 Krystal [facility] Body weight 2020-11-23 17:49:00 102.1 kg [facility] BMI 2020-11-23 17:49:00 36.35 kg/m2 [facility] Systolic blood pressure 2020-11-28 15:00:00 128 mm[Hg] [facility] Diastolic blood pressure 2020-11-28 15:00:00 67 mm[Hg] [facility] Heart rate 2020-11-28 15:00:00 59 /min [facility] Respiratory rate 2020-11-28 15:00:00 13 /min [facility] Oxygen saturation in Arterial blood by Pulse oximetry 2020-11-28 15:00:00 100 /min [facility] Body temperature 2020-11-28 14:50:00 36.33 Krystal [facility] Body weight 2020-11-23 17:49:00 102.1 kg [facility] BMI 2020-11-23 17:49:00 36.35 kg/m2 [facility] Systolic blood pressure 2020-11-28 15:00:00 128 mm[Hg] [facility] Diastolic blood pressure 2020-11-28 15:00:00 67 mm[Hg] [facility] Heart rate 2020-11-28 15:00:00 59 /min [facility] Respiratory rate 2020-11-28 15:00:00 13 /min [facility] Oxygen saturation in Arterial blood by Pulse oximetry 2020-11-28 15:00:00 100 /min [facility] Body temperature 2020-11-28 14:50:00 36.33 Krystal [facility] Body weight 2020-11-23 17:49:00 102.1 kg [facility] BMI 2020-11-23 17:49:00 36.35 kg/m2 [facility] Systolic blood pressure 2020-11-28 15:00:00 128 mm[Hg] [facility] Diastolic blood pressure 2020-11-28 15:00:00 67 mm[Hg] [facility] Heart rate 2020-11-28 15:00:00 59 /min [facility] Respiratory rate 2020-11-28 15:00:00 13 /min [facility] Oxygen saturation in Arterial blood by Pulse oximetry 2020-11-28 15:00:00 100 /min [facility] Body temperature 2020-11-28 14:50:00 36.33 Krystal [facility] Body weight 2020-11-23 17:49:00 102.1 kg [facility] BMI 2020-11-23 17:49:00 36.35 kg/m2 [facility] Systolic blood pressure 2020-11-14 13:40:00 140 mm[Hg] [facility] Diastolic blood pressure 2020-11-14 13:40:00 77 mm[Hg] [facility] Heart rate 2020-11-14 13:40:00 73 /min [facility] Respiratory rate 2020-11-14 13:40:00 12 /min [facility] Oxygen saturation in Arterial blood by Pulse oximetry 2020-11-14 13:40:00 96 /min [facility] Body temperature 2020-11-14 12:04:00 36.67 Krystal [facility] Body height 2020-11-09 14:50:00 167.6 cm [facility] Body weight 2020-11-09 14:50:00 102.1 kg [facility] BMI 2020-11-09 14:50:00 36.35 kg/m2 [facility] Systolic blood pressure 2020-11-14 13:40:00 140 mm[Hg] [facility] Diastolic blood pressure 2020-11-14 13:40:00 77 mm[Hg] [facility] Heart rate 2020-11-14 13:40:00 73 /min [facility] Respiratory rate 2020-11-14 13:40:00 12 /min [facility] Oxygen saturation in Arterial blood by Pulse oximetry 2020-11-14 13:40:00 96 /min [facility] Body temperature 2020-11-14 12:04:00 36.67 Krystal [facility] Body height 2020-11-09 14:50:00 167.6 cm [facility] Body weight 2020-11-09 14:50:00 102.1 kg [facility] BMI 2020-11-09 14:50:00 36.35 kg/m2 [facility] Systolic blood pressure 2020-11-14 13:40:00 140 mm[Hg] [facility] Diastolic blood pressure 2020-11-14 13:40:00 77 mm[Hg] [facility] Heart rate 2020-11-14 13:40:00 73 /min [facility] Respiratory rate 2020-11-14 13:40:00 12 /min [facility] Oxygen saturation in Arterial blood by Pulse oximetry 2020-11-14 13:40:00 96 /min [facility] Body temperature 2020-11-14 12:04:00 36.67 Krystal [facility] Body height 2020-11-09 14:50:00 167.6 cm [facility] Body weight 2020-11-09 14:50:00 102.1 kg [facility] BMI 2020-11-09 14:50:00 36.35 kg/m2 [facility] Systolic blood pressure 2020-11-14 13:40:00 140 mm[Hg] [facility] Diastolic blood pressure 2020-11-14 13:40:00 77 mm[Hg] [facility] Heart rate 2020-11-14 13:40:00 73 /min [facility] Respiratory rate 2020-11-14 13:40:00 12 /min [facility] Oxygen saturation in Arterial blood by Pulse oximetry 2020-11-14 13:40:00 96 /min [facility] Body temperature 2020-11-14 12:04:00 36.67 Krystal [facility] Body height 2020-11-09 14:50:00 167.6 cm [facility] Body weight 2020-11-09 14:50:00 102.1 kg [facility] BMI 2020-11-09 14:50:00 36.35 kg/m2 [facility] Systolic blood pressure 2019-08-02 13:30:00 127 mm[Hg] [facility] Diastolic blood pressure 2019-08-02 13:30:00 78 mm[Hg] [facility] Heart rate 2019-08-02 13:28:00 76 /min [facility] Body temperature 2019-08-02 13:28:00 36.5 Krystal [facility] Respiratory rate 2019-08-02 13:28:00 19 /min [facility] Body height 2019-08-02 13:28:00 167.6 cm [facility] Body weight 2019-08-02 13:28:00 102.059 kg [facility] BMI 2019-08-02 13:28:00 36.32 kg/m2 [facility] Oxygen saturation in Arterial blood by Pulse oximetry 2019-08-02 13:28:00 98 /min [facility] Systolic blood pressure 2019-08-02 13:30:00 127 mm[Hg] [facility] Diastolic blood pressure 2019-08-02 13:30:00 78 mm[Hg] [facility] Heart rate 2019-08-02 13:28:00 76 /min [facility] Body temperature 2019-08-02 13:28:00 36.5 Krystal [facility] Respiratory rate 2019-08-02 13:28:00 19 /min [facility] Body height 2019-08-02 13:28:00 167.6 cm [facility] Body weight 2019-08-02 13:28:00 102.059 kg [facility] BMI 2019-08-02 13:28:00 36.32 kg/m2 [facility] Oxygen saturation in Arterial blood by Pulse oximetry 2019-08-02 13:28:00 98 /min [facility] Systolic blood pressure 2023-09-11 14:11:00 117 mm[Hg] [facility] Diastolic blood pressure 2023-09-11 14:11:00 72 mm[Hg] [facility] Heart rate 2023-09-11 14:11:00 70 /min [facility] Respiratory rate 2023-09-11 14:11:00 18 /min [facility] Body height 2023-09-11 14:11:00 167.6 cm [facility] Body weight 2023-09-11 14:11:00 92.398 kg [facility] BMI 2023-09-11 14:11:00 32.88 kg/m2 [facility] Oxygen saturation in Arterial blood by Pulse oximetry 2023-09-11 14:11:00 99 /min [facility] Body temperature 2023-07-03 19:50:00 37.28 Krystal [facility] Systolic (mm Hg) 2023-06-30 15:27:00 [facility] Diastolic (mm Hg) 2023-06-30 15:27:00 [facility] Heart Rate 2023-06-30 15:27:00 [facility] Height 2023-06-30 15:27:00 5 [ft_i] [facility] Weight 2023-06-30 15:27:00 [facility] BMI Calculated 2023-06-30 15:27:00 [facility] Systolic (mm Hg) 2022-12-30 13:51:00 [facility] Diastolic (mm Hg) 2022-12-30 13:51:00 [facility] Heart Rate 2022-12-30 13:51:00 [facility] Height 2022-12-30 13:51:00 5 [ft_i] [facility] Weight 2022-12-30 13:51:00 [facility] BMI Calculated 2022-12-30 13:51:00 [facility] Systolic (mm Hg) 2022-09-09 14:59:00 [facility] Diastolic (mm Hg) 2022-09-09 14:59:00 [facility] Heart Rate 2022-09-09 14:59:00 [facility] Height 2022-09-09 14:59:00 5 [ft_i] [facility] Weight 2022-09-09 14:59:00 [facility] BMI Calculated 2022-09-09 14:59:00 [facility] Systolic (mm Hg) 2022-03-11 20:36:00 [facility] Diastolic (mm Hg) 2022-03-11 20:36:00 [facility] Heart Rate 2022-03-11 20:36:00 [facility] Height 2022-03-11 20:36:00 5 [ft_i] [facility] Weight 2022-03-11 20:36:00 [facility] BMI Calculated 2022-03-11 20:36:00 [facility] Systolic (mm Hg) 2021-11-07 20:21:00 [facility] Diastolic (mm Hg) 2021-11-07 20:21:00 [facility] Heart Rate 2021-11-07 20:21:00 [facility] Respitory Rate 2021-11-07 20:21:00 [facility] Height 2021-11-07 20:21:00 170.18 cm [facility] Weight 2021-11-07 20:21:00 [facility] BMI Calculated 2021-11-07 20:21:00 [facility] Height 2021-09-16 19:27:00 170.18 cm [facility] Weight 2021-09-16 19:27:00 [facility] BMI Calculated 2021-09-16 19:27:00 [facility] Systolic (mm Hg) 2021-08-20 20:12:00 [facility] Diastolic (mm Hg) 2021-08-20 20:12:00 [facility] Heart Rate 2021-08-20 20:12:00 [facility] Respitory Rate 2021-08-20 20:12:00 [facility] Height 2021-08-20 20:12:00 167.64 cm [facility] Weight 2021-08-20 20:12:00 [facility] BMI Calculated 2021-08-20 20:12:00 [facility] Systolic (mm Hg) 2021-06-25 19:14:00 [facility] Diastolic (mm Hg) 2021-06-25 19:14:00 [facility] Heart Rate 2021-06-25 19:14:00 [facility] Respitory Rate 2021-06-25 19:14:00 [facility] Height 2021-06-25 19:14:00 162.56 cm [facility] Weight 2021-06-25 19:14:00 [facility] BMI Calculated 2021-06-25 19:14:00 [facility] Systolic (mm Hg) 2020-11-16 20:17:00 [facility] Diastolic (mm Hg) 2020-11-16 20:17:00 [facility] Heart Rate 2020-11-16 20:17:00 [facility] Respitory Rate 2020-11-16 20:17:00 [facility] Height 2020-11-16 20:17:00 167.64 cm [facility] Weight 2020-11-16 20:17:00 [facility] BMI Calculated 2020-11-16 20:17:00 [facility] Systolic (mm Hg) 2020-09-28 20:50:00 [facility] Diastolic (mm Hg) 2020-09-28 20:50:00 [facility] Heart Rate 2020-09-28 20:50:00 [facility] Respitory Rate 2020-09-28 20:50:00 [facility] Height 2020-09-28 20:50:00 167.64 cm [facility] Weight 2020-09-28 20:50:00 [facility] BMI Calculated 2020-09-28 20:50:00 [facility] Systolic (mm Hg) 2020-06-14 15:23:00 [facility] Diastolic (mm Hg) 2020-06-14 15:23:00 [facility] Heart Rate 2020-06-14 15:23:00 [facility] Respitory Rate 2020-06-14 15:23:00 [facility] Height 2020-06-14 15:23:00 167.64 cm [facility] Weight 2020-06-14 15:23:00 [facility] BMI Calculated 2020-06-14 15:23:00 [facility] Systolic (mm Hg) 2019-10-26 19:53:00 [facility] Diastolic (mm Hg) 2019-10-26 19:53:00 [facility] Heart Rate 2019-10-26 19:53:00 [facility] Respitory Rate 2019-10-26 19:53:00 [facility] Height 2019-10-26 19:53:00 167.64 cm [facility] Weight 2019-10-26 19:53:00 [facility] BMI Calculated 2019-10-26 19:53:00 [facility] Systolic (mm Hg) 2019-09-28 20:25:00 [facility] Diastolic (mm Hg) 2019-09-28 20:25:00 [facility] Heart Rate 2019-09-28 20:25:00 [facility] Respitory Rate 2019-09-28 20:25:00 [facility] Height 2019-09-28 20:25:00 167.64 cm [facility] Weight 2019-09-28 20:25:00 [facility] BMI Calculated 2019-09-28 20:25:00 [facility] Systolic (mm Hg) 2019-09-23 13:29:00 [facility] Diastolic (mm Hg) 2019-09-23 13:29:00 [facility] Heart Rate 2019-09-23 13:29:00 [facility] Respitory Rate 2019-09-23 13:29:00 [facility] Height 2019-09-23 13:29:00 167.64 cm [facility] Weight 2019-09-23 13:29:00 [facility] BMI Calculated 2019-09-23 13:29:00 [facility] Temperature Oral (F) 2019-09-23 13:29:00 97.9 F [facility] Systolic (mm Hg) 2019-09-22 13:28:00 [facility] Diastolic (mm Hg) 2019-09-22 13:28:00 [facility] Heart Rate 2019-09-22 13:28:00 [facility] Respitory Rate 2019-09-22 13:28:00 [facility] Temperature Oral (F) 2019-09-22 13:28:00 98.7 F [facility] Height 2019-09-22 13:28:00 167.64 cm [facility] Weight 2019-09-22 13:28:00 [facility] BMI Calculated 2019-09-22 13:28:00 [facility] Procedures Procedure Date / Time Performed Performing Clinician Source MRI brain wo IV contrast 2024-04-05 00:00:00 [facility] Epic EMG 2024-03-09 00:00:00 [facility] XR lumbar spine 2-3 views 2024-03-09 00:00:00 [facility] FLU VACC(),65+YR,0.5 ML,IM,ADJUVANTED,TIV(FLUAD) 2024-01-01 15:43:54 Levi Ann [facility] POCT GLUCOSE (AUTOMATED) 2023-12-21 17:43:00 Leonora Jameson [facility] POCT GLUCOSE (AUTOMATED) 2023-12-21 17:43:00 Leonora Jameson [facility] CARDIAC CATHETERIZATION 2023-12-21 14:48:41 [facility] CARDIAC CATHETERIZATION 2023-12-21 14:48:41 Trino [facility] CARDIAC CATHETERIZATION 2023-12-21 14:48:41 Trino [facility] CARDIAC CATHETERIZATION 2023-12-21 14:48:41 Trino [facility] POCT GLUCOSE (AUTOMATED) 2023-12-21 11:10:00 Tr[facility] POCT GLUCOSE (AUTOMATED) 2023-12-21 11:10:00 [facility] PHOSPHORUS 2023-12-21 10:18:00 Otis Marquez [facility] MAGNESIUM 2023-12-21 10:18:00 Otis Marquez [facility] BASIC METABOLIC PANEL (NA, K, CL, CO2, GLUCOSE, BUN, CREATININE, CA) 2023-12-21 10:18:00 Otis Marquez [facility] CBC WITH DIFF 2023-12-21 10:18:00 Otis Marquez [facility] ACTIVATED PARTIAL THRMPLAS ANDREAS 2023-12-21 10:18:00 Peña Combs [facility] PHOSPHORUS 2023-12-21 10:18:00 Otis Marquez [facility] MAGNESIUM 2023-12-21 10:18:00 Otis Marquez [facility] BASIC METABOLIC PANEL (NA, K, CL, CO2, GLUCOSE, BUN, CREATININE, CA) 2023-12-21 10:18:00 Otis Marquez [facility] CBC WITH DIFF 2023-12-21 10:18:00 Otis MarquezPravin [facility] ACTIVATED PARTIAL THRMPLAS ANDREAS 2023-12-21 10:18:[address] [facility] [place] [place] POCT GLUCOSE (AUTOMATED) 2023-12-21 01:15:00 Trino [facility] POCT GLUCOSE (AUTOMATED) 2023-12-21 01:15:00 Trino [facility] ACTIVATED PARTIAL THRMPLAS ANDREAS 2023-12-20 22:17:[address] [facility] [place] [place] ACTIVATED PARTIAL THRMPLAS ANDREAS 2023-12-20 22:17:[address] [facility] [place] [place] POCT GLUCOSE (AUTOMATED) 2023-12-20 21:47:00 Trino [facility] POCT GLUCOSE (AUTOMATED) 2023-12-20 21:47:00 Trino [facility] POCT GLUCOSE (AUTOMATED) 2023-12-20 17:29:00 Trino [facility] POCT GLUCOSE (AUTOMATED) 2023-12-20 17:29:00 Trino [facility] ACTIVATED PARTIAL THRMPLAS ANDREAS 2023-12-20 09:42:[address] [facility] [place] [place] ACTIVATED PARTIAL THRMPLAS ANDREAS 2023-12-20 09:42:[address] [facility] [place] [place] MAGNESIUM 2023-12-20 09:39:00 [facility] BASIC METABOLIC PANEL (NA, K, CL, CO2, GLUCOSE, BUN, CREATININE, CA) 2023-12-20 09:39:00 [facility] CBC WITHOUT DIFF 2023-12-20 09:39:[address] [facility] [place] [place] MAGNESIUM 2023-12-20 09:39:00 [facility] BASIC METABOLIC PANEL (NA, K, CL, CO2, GLUCOSE, BUN, CREATININE, CA) 2023-12-20 09:39:00 [facility] CBC WITHOUT DIFF 2023-12-20 09:39:[address] [facility] [place] [place] POCT GLUCOSE (AUTOMATED) 2023-12-20 01:37:00 Trino [facility] POCT GLUCOSE (AUTOMATED) 2023-12-20 01:37:00 Trino [facility] ACTIVATED PARTIAL THRMPLAS ANDREAS 2023-12-20 01:07:[address] [facility] [place] [place] ACTIVATED PARTIAL THRMPLAS ANDREAS 2023-12-20 01:07:[address] [facility] [place] [place] POCT GLUCOSE (AUTOMATED) 2023-12-19 22:10:00 [facility] POCT GLUCOSE (AUTOMATED) 2023-12-19 22:10:00 [facility] POCT GLUCOSE (AUTOMATED) 2023-12-19 17:06:00 [facility] POCT GLUCOSE (AUTOMATED) 2023-12-19 17:06:00 Tr[facility] PROTHROMBIN TIME / INR 2023-12-19 17:03:[address] [facility] [place] [place] ACTIVATED PARTIAL THRMPLAS ANDREAS 2023-12-19 17:03:[address] [facility] [place] [place] PROTHROMBIN TIME / INR 2023-12-19 17:03:[address] [facility] [place] [place] ACTIVATED PARTIAL THRMPLAS ANDREAS 2023-12-19 17:03:[address] [facility] [place] [place] POCT GLUCOSE (AUTOMATED) 2023-12-19 13:53:00 Tr[facility] POCT GLUCOSE (AUTOMATED) 2023-12-19 13:53:00 [facility] TRANSTHORACIC ECHO (TTE) COMPLETE W/ CONTRAST 2023-12-19 13:29:05 Umer Proctor [facility] TRANSTHORACIC ECHO (TTE) COMPLETE W/ CONTRAST 2023-12-19 13:29:05 Umer Proctor [facility] MAGNESIUM 2023-12-19 08:55:00 [facility] BASIC METABOLIC PANEL (NA, K, CL, CO2, GLUCOSE, BUN, CREATININE, CA) 2023-12-19 08:55:00 [facility] CBC WITHOUT DIFF 2023-12-19 08:55:00 [facility] PROTHROMBIN TIME / INR 2023-12-19 08:55:00 Umer Proctor [facility] MAGNESIUM 2023-12-19 08:55:00 [facility] BASIC METABOLIC PANEL (NA, K, CL, CO2, GLUCOSE, BUN, CREATININE, CA) 2023-12-19 08:55:00 [facility] CBC WITHOUT DIFF 2023-12-19 08:55:00 [facility] PROTHROMBIN TIME / INR 2023-12-19 08:55:00 Umer Proctor [facility] POCT GLUCOSE (AUTOMATED) 2023-12-19 01:12:00 [facility] POCT GLUCOSE (AUTOMATED) 2023-12-19 01:12:00 [facility] POCT GLUCOSE (AUTOMATED) 2023-12-18 23:23:00 [facility] POCT GLUCOSE (AUTOMATED) 2023-12-18 23:23:00 Tr[facility] TROPONIN I 2023-12-18 22:00:00 [facility] LIPID PANEL (19064)(TOTAL CHOLESTEROL, TRIGLYCERIDES, HDL) 2023-12-18 22:00:00 Umer Proctor [facility] TROPONIN I 2023-12-18 22:00:00 [facility] LIPID PANEL (06263)(TOTAL CHOLESTEROL, TRIGLYCERIDES, HDL) 2023-12-18 22:00:00 Umer Proctor [facility] POCT GLUCOSE (AUTOMATED) 2023-12-18 20:46:00 Doctor Unassigned, [place] [facility] POCT GLUCOSE (AUTOMATED) 2023-12-18 20:46:00 Doctor Unassigned, [place] [facility] HB ECG ROUTINE & RHYTHM STRIP 2023-12-18 17:27:02 Wilman [facility] HB ECG ROUTINE & RHYTHM STRIP 2023-12-18 17:27:02 Wilman [facility] XR CHEST 1 VW 2023-12-18 17:26:04 Charlotte Stovall [facility] XR CHEST 1 VW 2023-12-18 17:26:04 Chralotte Stovall [facility] LIPASE 2023-12-18 17:24:00 [facility]23-12-18 17:24:00 [facility] COMP. METABOLIC PANEL (43668) 2023-12-18 17:24:00 Wilman [facility] CBC WITH DIFF 2023-12-18 17:24:00 [facility] N-TERMINAL PRO-BNP 2023-12-18 17:24:00 [facility]23-12-18 17:24[facility]00 [facility] 2023-12-18 17:24[facility]00 [facility] COMP. METABOLIC PANEL ([id number]) 2023-12-18 17:24:00 Wilman [facility] CBC WITH DIFF 2023-12-18 17:24:00 [facility] N-TERMINAL PRO-BNP 2023-12-18 17:24:00 Wilman [facility] MYOCARDIUM PERFUSION STRESS AND REST 2023-10-27 14:45:00 Ann [facility] MYOCARDIUM PERFUSION STRESS AND REST 2023-10-27 14:45:00 Marissa [facility] MYOCARDIUM PERFUSION STRESS AND REST 2023-10-27 14:45:00 Ann [facility] MYOCARDIUM PERFUSION STRESS AND REST 2023-10-27 14:45:00 Marissa [facility] EKG-12 LEAD 2023-10-27 14:06:35 Doctor Unassigned, [place] [facility] EKG-12 LEAD 2023-10-27 13:59:24 Doctor Unassigned, [place] [facility] EKG-12 LEAD 2023-10-27 13:44:47 Doctor Unassigned, [place] [facility] REFERRAL- REQUEST/RESPONSE 2023-09-14 19:26:50 Doctor Unassigned, [place] [facility] REFERRAL- REQUEST/RESPONSE 2023-09-14 19:26:50 Doctor Unassigned, [place] [facility] TROPONIN I 2023-09-11 16:06:00 [facility] 2023-09-11 16:06:00 Dawn Annammed [facility] HB ECG ROUTINE & RHYTHM STRIP 2023-09-11 14:27:11 Dawn Annammed [facility] XR LUMBAR SPINE 3 VW 2023-08-17 17:35:44 Lexy Barrowjuli [facility] XR LUMBAR SPINE 3 VW 2023-08-17 17:35:44 Nickolas Barrow [facility] EXTERNAL PROVIDER RECORDS 2023-06-18 06:01:00 Doctor Unassigned, [place] [facility] CT SOFT TISSUE NECK W CONTRAST 2023-05-19 19:52:29 Nickolas Barrow [facility] HB CREATININE SERUM/BLOOD FOR IMAGING 2023-05-19 19:28:00 Avani Nickolas [facility] NOTICE OF PRIVACY PRACTICES 2023-05-19 18:27:39 Doctor Unassigned, [place] [facility] CONSENT/REFUSAL FOR DIAGNOSIS AND TREATMENT 2023-05-19 18:26:59 Doctor Unassigned, [place] [facility] ASSIGNMENT OF BENEFITS 2023-05-19 18:26:41 Doctor Unassigned, [place] [facility] PULMONARY FUNCTION TEST (RESULTS) 2023-03-26 14:05:23 Zhang Curtis [facility] ASSIGNMENT OF BENEFITS 2023-03-16 15:38:25 Doctor Unassigned, [place] [facility] REFERRAL- REQUEST/RESPONSE 2022-11-10 05:01:00 Doctor Unassigned, [place] [facility] 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) (eg, papaverine, phentolamine) 2021-10-14 14:25:00 [facility]separate procedure) 2021-10-01 22:05:00 [facility] CONSENT/REFUSAL FOR DIAGNOSIS AND TREATMENT 2020-12-11 05:01:00 Doctor Unassigned, [place] [facility] PHACOEMULSIFICATION OF CATARACT WITH INTRAOCULAR LENS IMPLANT 2020-11-28 14:15:00 Tre Meza [facility] POCT GLUCOSE(AGE >30DAYS) 2020-11-28 13:30:00 Alka Heller [facility] POCT GLUCOSE(AGE >30DAYS) 2020-11-28 13:30:00 Alka Heller [facility] COVID-19 (ID NOW RAPID TESTING) 2020-11-28 12:51:00 Tre Meza [facility] CONSENT/REFUSAL FOR DIAGNOSIS AND TREATMENT 2020-11-26 20:44:56 Doctor Unassigned, [place] [facility] CONSENT/REFUSAL FOR DIAGNOSIS AND TREATMENT 2020-11-26 20:44:56 Doctor Unassigned, [place] [facility] ASSIGNMENT OF BENEFITS 2020-11-26 20:44:20 Doctor Unassigned, [place] [facility] ASSIGNMENT OF BENEFITS 2020-11-26 20:44:20 Doctor Unassigned, [place] [facility] PHACOEMULSIFICATION OF CATARACT WITH INTRAOCULAR LENS IMPLANT 2020-11-14 12:51:00 Tre Meza [facility] POCT GLUCOSE(AGE >30DAYS) 2020-11-14 12:16:[address] [facility] POCT GLUCOSE(AGE >30DAYS) 2020-11-14 12:16:[address] [facility] VACCINATIONS - CONSENTS, ELIGIBILITY, HISTORY 2020-11-14 05:01:00 Doctor Unassigned, [place] [facility] CBC WITH DIFF 2020-11-05 16:24:00 Tre Meza [facility] ASSIGNMENT OF BENEFITS 2020-11-05 16:14:55 Doctor Unassigned, [place] [facility] POCT GRP A STREP (MOLECULAR) 2019-08-02 13:46:00 Silvia Long [facility] Stent placement [facility] Hand arthro[facility] her[facility] Ch[facility] Plan of Care Planned Activity Planned Date Details Comments Source Encounters Start Date/Time End Date/Time Encounter Type Admission Type Attending Clinicians Care Facility Care Department Encounter ID Source 2024-10-24 07:30:00 Inpatient Alexander Cuevas [facility] [id number] [facility] 2024-05-31 10:57:01 Outpatient Nickolas Barrow [facility] [id number] 2024-01-26 08:54:02 Outpatient Nickolas Barrow [facility] [id number] 2021-05-22 14:31:19 Outpatient [place] [facility] [id number] [facility] 2021-05-22 14:30:11 Outpatient Eleazarpablo [place] padron [facility] [id number] [facility] 2021-02-25 12:04:47 Outpatient TRE ARELLANO [facility] OPH [id number] [facility] 2021-02-25 08:31:28 Outpatient TRE ARELLANO [facility] OPH [id number] [facility] 2024-12-20 00:00:00 2024-12-21 10:08:43 Telephone Levi Ann [facility] [id number] [facility] 2024-11-10 00:00:00 2024-11-10 00:00:00 (TEL) STLC STLC [id number] [facility] 2024-11-10 00:00:00 2024-11-10 00:00:00 NON-BILLAB LE VISIT STLC STLC [id number] [facility] 2024-10-31 00:00:00 2024-10-31 00:00:00 (TEL) STLMLC STLMLC [id number] [facility] 2024-10-25 00:00:00 2024-10-25 00:00:00 (TEL) STLMLC STLMLC [id number] [facility] 2024-10-25 00:00:00 2024-10-25 00:00:00 (F/U) Follow Up Visit STLC STLC [id number] [facility] 2024-10-24 00:00:00 2024-10-24 00:00:00 (TEL) STLMLC STLMLC [id number] [facility] 2024-10-15 00:00:00 2024-10-17 09:16:34 Telephone Levi Ann [facility] [id number] [facility] 2024-09-27 00:00:00 2024-09-27 00:00:00 OFFICE VISIT ESTAB PT LEVEL 4 STLMLC STLMLC [id number] [facility] 2024-09-27 00:00:00 2024-09-27 00:00:00 (TEL) STLMLC STLMLC [id number] [facility] 2024-09-21 00:00:00 2024-09-21 00:00:00 (TEL) STLMLC STLMLC [id number] [facility] 2024-09-16 10:00:00 2024-09-16 10:00:00 Outpatient R LEVI ANN [facility] [id number] [facility] 2024-09-12 00:00:00 2024-09-12 00:00:00 (TEL) STLMLC STLMLC [id number] [facility] 2024-09-12 00:00:00 2024-09-12 00:00:00 OFFICE VISIT NEW PT LEVEL 4 STLMLC STLMLC [id number] [facility] 2024-09-07 00:00:00 2024-09-07 00:00:00 (TEL) STLMLC STLMLC [id number] [facility] 2024-08-28 00:00:00 2024-09-01 13:56:37 [place] [id number] [facility] 2024-08-19 05:22:00 2024-08-19 05:22:00 Outpatient Alexander Cuevas [facility] [id number] 2024-08-15 16:01:00 2024-08-15 16:01:00 Outpatient Alexander Gonzales [facility]O [id number] [facility] 2024-08-09 00:00:00 2024-08-09 16:28:33 Telephone Marissa [facility] [id number] [facility] 2024-08-05 00:00:00 2024-08-05 12:16:36 Telephone Marissa [facility] [id number] [facility] 2024-08-05 11:00:00 2024-08-05 11:39:41 Outpatient R MARISSA [facility] [id number] [facility] 2024-08-05 11:00:00 2024-08-05 11:39:41 Office Visit Ann [facility] [id number] [facility] 2024-07-05 07:16:00 2024-07-05 07:16:00 Outpatient PABLO JacksonJose M ansari [facility] [id number] [facility] 2024-07-05 07:16:00 2024-07-05 07:16:00 Outpatient Jose M Starks [facility] [id number] [facility] 2023-09-14 00:00:00 2024-06-11 07:44:51 Orders Only Doctor Unassigned, [place] Doctor Unassigned, [place] [facility] (JOSE M) 1.2.840.114 350.1.13.10 4.2.7.2.686 [id number] [facility] 2024-06-06 00:00:00 2024-06-07 09:07:16 DomingoParis Kemp 1.2.840.114 350.1.13.70 8.2.7.2.686 [id number] [place] [facility] 2024-06-06 00:00:00 2024-06-06 16:44:46 Zhang Watt [facility] 1.2.840.114 350.1.13.10 4.2.7.2.686 [id number] [facility] 2024-04-28 00:00:00 2024-04-28 10:14:11 [place] 1.2.840.114 350.1.13.70 8.2.7.2.686 [id number] [place] [facility] 2024-04-05 00:00:00 2024-04-05 16:12:02 Orders Only Shauna Clay [facility] 1.2.840.114 350.1.13.70 8.2.7.2.686 [id number] [place] russo [facility] 2024-04-05 08:30:00 2024-04-05 09:41:12 Office Visit Shauna Clay [facility] 1.2.840.114 350.1.13.58 9.2.7.2.686 [id number] [facility] 2024-04-01 08:28:45 2024-04-01 09:05:34 Outpatient PARIS ROJAS [facility] [id number] [facility] 2024-03-29 09:30:00 2024-03-29 09:30:00 Outpatient LEVI SWANSON [facility] [id number] [facility] 2024-03-18 10:30:00 2024-03-18 11:34:22 Outpatient LEVI SWANSON [facility] [id number] [facility] 2024-03-18 10:30:00 2024-03-18 11:34:22 [facility] 1.2.840.114 350.1.13.10 4.2.7.2.686 [id number] [facility] 2024-03-14 11:41:31 2024-03-14 11:58:46 Outpatient Elective MHEOUT M[facility]OUT [id number] [facility] 2024-03-09 15:03:21 2024-03-09 15:40:28 Outpatient PARIS ROJAS [facility] [id number] [facility] 2024-03-09 15:00:00 2024-03-09 15:40:28 Office Visit Paris Rojas 1.2.840.114 350.1.13.70 8.2.7.2.686 [id number] [place] Mast [facility] 2024-03-08 00:00:00 2024-03-08 00:00:00 Office Visit- Est Pt.- Level 3 [facility] CLS [id number] [facility] 2024-02-09 00:00:00 2024-02-09 00:00:00 Office Visit- Est Pt.- Level 3 [facility] CLS [id number] [facility] 2024-02-03 00:00:00 2024-02-03 15:33:01 Telephone Peña Combs [facility] 1.2.840.114 350.1.13.10 4.2.7.2.686 [id number] [facility] 2024-02-02 00:00:00 2024-02-02 00:00:00 (PodSurger y) Podiatry Surgery [facility] CLS [id number] Edson [facility] 2024-01-26 00:00:00 2024-01-26 00:00:00 Office Visit- New Pt.- Level 3 [facility] CLS [id number] Edson [facility] 2024-01-01 09:30:00 2024-01-01 10:42:59 Outpatient R MARISSA [facility] [id number] [facility] 2024-01-01 09:30:00 2024-01-01 10:42:59 Office Visit Marissa [facility] 1.0.114 350.1.13.10 4.2.7.2.686 [id number] [facility] 2023-12-22 00:00:00 2023-12-22 10:29:26 Transition of Care Marisa Kennedy PLAJULIANNA 1.0.114 350.1.13.10 4.2.7.2.686 [id number] [facility] 2023-12-18 12:17:00 2023-12-21 17:05:00 Outpatient X TRINO OLU [facility] [id number] [facility] 2023-12-18 12:17:00 2023-12-21 17:05:00 Emergency Charlotte Stovall Aiham [facility] 1..114 350.1.13.10 4.2.7.2.686 [id number] [facility] 2023-12-21 07:00:00 2023-12-21 08:00:00 Surgery Raj Samaniego [facility] 1.0.114 350.1.13.10 4.2.7.2.686 [id number] [facility] 2023-12-18 00:00:00 2023-12-18 13:20:43 Telephone Ann [facility] PRIMARY [facility] SPECIALTY CARE 1.2.840.114 350.1.13.10 4.2.7.2.686 [id number] [id number] [facility] 2023-12-18 00:00:00 2023-12-18 11:59:09 Nurse Triage Joy Glass Ruth [facility] 1.2.840.114 350.1.13.10 4.2.7.2.686 [id number] [facility] 2023-11-11 00:00:00 2023-11-12 16:15:01 Telephone Levi Ann [facility] PRIMARY [facility] SPECIALTY CARE 1.2.840.114 350.1.13.10 4.2.7.2.686 [id number] [facility] 2023-10-27 07:13:12 2023-10-27 23:59:00 Hospital Encounter Marissa [facility] 1.2.840.114 350.1.13.10 4.2.7.2.686 [id number] [facility] 2023-10-27 07:12:52 2023-10-27 07:12:52 Hospital Encounter Marissa [facility] 1.2.840.114 350.1.13.10 4.2.7.2.686 [id number] [facility] 2023-10-27 07:12:34 2023-10-27 07:12:34 Hospital Encounter [facility] 1.2.840.114 350.1.13.10 4.2.7.2.686 [id number] [facility] 2023-10-27 07:12:14 2023-10-27 07:12:14 Hospital Encounter [facility] 1.2.840.114 350.1.13.10 4.2.7.2.686 [id number] [facility] 2023-10-27 07:12:14 2023-10-27 07:12:14 Outpatient DAWN SWANSONJUANA [facility] [id number] [facility] 2023-10-22 00:00:00 2023-10-22 12:42:59 Refjovan Bernsteinlexy Zhang [facility] 1.2.840.114 350.1.13.10 4.2.7.2.686 [id number] [id number] [facility] 2023-10-15 00:00:00 2023-10-20 16:37:34 Telephone Dawn Annammed [facility] PRIMARY [facility] SPECIALTY CARE 1.2.840.114 350.1.13.10 4.2.7.2.686 [id number] [facility] 2023-10-08 00:00:00 2023-10-08 23:59:00 Outpatient Zahraa ANN LEVI [facility] [id number] [facility] 2023-10-08 00:00:00 2023-10-08 00:00:00 Travel 1.2.840.1 83205.1.1 3.104.2.7 .3.408880 .8 1.2.840.114 350.1.13.10 4.2.7.3.698 084.8 [id number] [facility] 2023-09-14 00:00:00 2023-09-14 10:40:02 Telephone Dawn Annammed 1.2.840.1 80520.1.1 3.104.2.7 .3.115091 .8 [id number] [facility] 2023-09-11 11:00:00 2023-09-11 11:15:00 Hospitality Director Visit Levi Ann Pob, Adc Lab Main 1.2.840.1 71494.1.1 3.104.2.7 .3.049647 .8 [id number] [facility] 2023-09-11 09:30:00 2023-09-11 10:02:45 Outpatient R LEVI ANN [facility] [id number] [facility] 2023-09-11 09:30:00 2023-09-11 10:02:45 Office Visit Levi Ann 1.2.840.1 97804.1.1 3.104.2.7 .3.271594 .8 [id number] [facility] 2023-09-11 00:00:00 2023-09-11 00:00:00 Travel 1.2.840.1 14682.1.1 3.104.2.7 .3.620403 .8 1.2.840.114 350.1.13.10 4.2.7.3.698 084.8 [id number] [facility] 2023-08-17 12:17:51 2023-08-17 23:59:00 Outpatient R NICKOLAS BARROW [facility] [id number] [facility] 2023-08-17 12:15:00 2023-08-17 23:59:00 Hospital Encounter Nickolas Barrow 1.2.840.1 63100.1.1 3.104.2.7 .3.361366 .8 [id number] [facility] 2023-08-11 00:00:00 2023-08-12 10:25:43 Refill Zhang Curtis 1.2.840.1 04814.1.1 3.104.2.7 .3.260378 .8 [id number] [facility] 2023-07-20 11:30:00 2023-07-20 11:50:36 Outpatient R ZHANG CURTIS JOSEPH [facility] [id number] [facility] 2023-07-20 11:30:00 2023-07-20 11:50:36 Office Visit Zhang Curtis 1.2.840.1 13874.1.1 3.104.2.7 .3.865192 .8 [id number] [facility] 2023-07-20 00:00:00 2023-07-20 00:00:00 Travel 1.2.840.1 77027.1.1 3.104.2.7 .3.338077 .8 1.2.840.114 350.1.13.10 4.2.7.3.698 084.8 [id number] [facility] 2023-07-03 14:30:00 2023-07-03 14:42:39 Outpatient R [facility] [id number] [facility] 2023-07-03 14:30:00 2023-07-03 14:42:39 Office Visit Levi Ann [facility] PRIMARY AND SPECIALTY CARE 1.0.114 350.1.13.10 4.2.7.2.686 [id number] [facility] 2023-06-30 09:00:00 2023-06-30 09:00:00 Outpatient MHIE MHIE [id number] [place] Mast 2023-06-22 13:30:00 2023-06-22 14:39:03 Outpatient SHAUNA LANZA DAVID [facility] [id number] [facility] 2023-06-22 13:30:00 2023-06-22 14:39:03 Office Visit Shauna West, Speech Voice/Swall ow [facility] 1.2840.114 350.1.13.10 4.2.7.2.686 [id number] [facility] 2023-06-18 00:00:00 2023-06-18 00:00:00 Orders Only Doctor Unassigned, [place] [facility] 1.840.114 350.1.13.10 4.2.7.2.686 [id number] [facility] 2023-05-19 12:32:50 2023-05-19 23:59:00 Outpatient R NICKOLAS BARROW [facility] [id number] [facility] 2023-05-19 12:32:50 2023-05-19 23:59:00 Hospital Encounter Nickolas Barrow [facility] 1.2.840.114 350.1.13.10 4.2.7.2.686 [id number] [facility] 2023-05-04 15:00:00 2023-05-04 15:00:00 Outpatient SHAUNA LANZA DAVID [facility] [id number] [facility] 2023-04-01 00:00:00 2023-04-01 00:00:00 [facility] 1..840.114 350.1.13.10 4.2.7.2.686 [id number] [facility] 2023-03-26 08:00:00 2023-03-26 09:00:00 Hospitality Director Visit Therapist, Adc Respiratory Ilsa [facility] 1.2.840.114 350.1.13.10 4.2.7.2.686 [id number] [id number] [facility] 2023-03-26 08:00:00 2023-03-26 08:00:00 Outpatient R ZHANG CURTIS [facility] [id number] [facility] 2023-03-26 00:00:00 2023-03-26 00:00:00 Orders Only Ilsa [facility] MEDICAL [facility] 1.2.840.114 350.1.13.10 4.2.7.2.686 [id number] [facility] 2023-03-20 00:00:00 2023-03-20 00:00:00 Patient Secure Msg Doctor Unassigned, [place] [facility] 1.2.840.114 350.1.13.10 4.2.7.2.686 [id number] [facility] 2023-03-16 10:30:00 2023-03-16 10:48:45 Outpatient R [facility] [id number] [facility] 2023-03-16 10:30:00 2023-03-16 10:48:45 Office Visit Ilsa [facility] MEDICAL OFFICE BUILDING 1.2840.114 350.1.13.10 4.2.7.2.686 [id number] [id number] [facility] 2023-03-16 00:00:00 2023-03-16 00:00:00 Orders Only Doctor Unassigned, [place] [facility] 1.2.840.114 350.1.13.10 4.2.7.2.686 [id number] [facility] 2023-03-16 00:00:00 2023-03-16 00:00:00 Telephone Zhang Curtis [facility] 1.2.840.114 350.1.13.10 4.2.7.2.686 [id number] [facility] 2023-03-16 00:00:00 2023-03-16 00:00:00 Telephone Ilsa [facility] MEDICAL OFFICE BUILDING 1.2840.114 350.1.13.10 4.2.7.2.686 [id number] [id number] [facility] 2023-03-16 00:00:00 2023-03-16 00:00:00 [facility] 1.2840.114 350.1.13.10 4.2.7.2.686 [id number] [id number] [facility] 2022-12-30 14:15:00 2022-12-31 04:59:59 Outpatient MHIE [facility] [id number] [place] Mast 2022-11-20 00:00:00 2022-11-20 00:00:00 Patient Secure Msg Doctor Unassigned, [place] [facility] 1.2.840.114 350.1.13.10 4.2.7.2.686 [id number] [facility] 2022-11-10 00:00:00 2022-11-10 00:00:00 Orders Only Doctor Unassigned, [place] [facility] 1.2.840.114 350.1.13.10 4.2.7.2.686 [id number] [facility] 2022-10-23 10:30:00 2022-10-23 10:30:00 Outpatient VICTOR M TAYLOR [id number] Jodi Rodriguez 2022-09-09 15:15:00 2022-09-10 04:59:59 Outpatient MHIE [facility] [id number] Memfrancesca russo Pro 2022-03-11 21:30:00 2022-03-12 05:59:59 Outpatient MHIE [facility] [id number] Evelynfrancesca russo Pro 2022-03-03 20:00:00 2022-03-03 20:00:00 Ambulatory Pre-Reg nullFlavo r [facility] Time Share [id number] Evelynfrancesca russo Pro 2022-02-26 14:50:00 2022-02-26 14:50:00 Ambulatory Pre-Reg nullFlavo r [facility] Time Share [id number] Evelynfrancesca russo Pro 2022-02-24 14:00:00 2022-02-24 14:00:00 Ambulatory Pre-Reg nullFlavo r [facility] Time Share [id number] Evelynfrancesca russo Pro 2022-02-17 20:00:00 2022-02-17 20:00:00 Ambulatory Pre-Reg nullFlavo r [facility] Time Share [id number] Evelynfrancesca rafaela Mast 2022-02-14 14:00:00 2022-02-14 14:00:00 Ambulatory Pre-Reg nullFlavo r [facility] Time Share [id number] [place] russo Pro 2021-11-07 20:30:00 2021-11-08 04:59:59 Outpatient nullFlavo r [facility] [id number] [place] russo Pro 2021-10-14 14:00:00 2021-10-15 04:59:59 Outpatient nullFlavo r [facility] Time Share [id number] Evelynoria rafaela Pro 2021-10-01 20:30:00 2021-10-02 04:59:59 Outpatient nullFlavo r [facility] Time Share [id number] [place] russo Pro 2021-10-01 20:30:00 2021-10-01 20:30:00 Ambulatory Pre-Reg nullFlavo r [facility] Time Share [id number] [place] russo Pro 2021-09-26 13:15:00 2021-09-26 13:15:00 Ambulatory Pre-Reg nullFlavo r [facility] [id number] [place] russo Pro 2021-09-16 19:40:00 2021-09-17 04:59:59 Outpatient nullFlavo r [facility] [id number] [place] russo Pro 2021-08-27 20:00:00 2021-08-27 20:00:00 Ambulatory Pre-Reg nullFlavo r [facility] [id number] [place] russo Pro 2021-08-20 20:00:00 2021-08-21 04:59:59 Outpatient nullFlavo r [facility] [id number] Evelynfrancesca russo Pro 2021-08-07 14:15:00 2021-08-07 14:15:00 Ambulatory Pre-Reg nullFlavo r [facility] [id number] Evelynfrancesca russo Pro 2021-07-02 00:00:00 2021-07-02 00:00:00 [id number] 2021-06-25 19:30:00 2021-06-26 05:59:59 Outpatient nullFlavo r [facility] [id number] [place] Mast 2021-05-14 00:00:00 2021-05-14 00:00:00 (TEL) STLMLC STL[facility]C [id number] [facility] 2021-05-01 00:00:00 2021-05-01 00:00:00 OFFICE VISIT NEW PT LEVEL 4 STLMLC STLMLC [id number] [facility] 2021-03-25 00:00:00 2021-03-25 00:00:00 (TEL) STLMLC STLMLC [id number] [facility] 2021-02-27 14:00:00 2021-02-28 04:59:59 Outpatient nullFlavo r [facility] [id number] [place] russo Pro 2020-12-28 20:45:00 2020-12-28 20:45:00 Ambulatory Pre-Reg nullFlavo r [facility] [id number] [place] rafaela Mast 2020-12-11 13:30:00 2020-12-11 13:30:00 Outpatient ESTIVEN [place] [facility] [id number] [facility] 2020-12-11 11:28:16 2020-12-11 12:28:16 Nurse Visit Therapy, Adc Covid Infusion Estiven Goetz [facility] ..840.114 350.1.13.10 4.2.7.2.686 [id number] [facility] 2020-12-11 00:00:00 2020-12-11 00:00:00 Orders Only Doctor Unassigned, [place] [facility] 1..840.114 350.1.13.10 4.2.7.2.686 [id number] [facility] 2020-11-28 09:50:00 2020-11-28 10:29:00 Surgery [facility] 1.2.840.114 350.1.13.10 4.2.7.2.686 [id number] [id number] 2020-11-28 09:50:00 2020-11-28 10:29:00 Surgery Tre Meza [facility] 1.2.840.114 350.1.13.10 4.2.7.2.686 [id number] [facility] 2020-11-28 08:00:00 2020-11-28 10:15:00 Hospital Encounter Tre Meza [facility] 1.2.840.114 350.1.13.10 4.2.7.2.686 [id number] 2020-11-28 08:00:00 2020-11-28 10:15:00 Hospital Encounter Tre Meza [facility] 1.2.840.114 350.1.13.10 4.2.7.2.686 [id number] [id number] [facility] 2020-11-28 07:33:14 2020-11-28 07:48:14 Laboratory Only Only, Adc Test [facility] 1.2.840.114 350.1.13.10 4.2.7.2.686 [id number] 2020-11-28 07:33:14 2020-11-28 07:48:14 Laboratory Only Only, Adc Test Tre Meza [facility] 1.2.840.114 350.1.13.10 4.2.7.2.686 [id number] [facility] 2020-11-27 14:15:00 2020-11-27 14:15:00 Outpatient R TRE MEZA [facility] [id number] [facility] 2020-11-21 14:03:01 2020-11-21 14:23:01 Laboratory Only Lab, Adc Fam Pob I [facility] 1.2.840.114 350.1.13.10 4.2.7.2.686 [id number] 044 [id number] 2020-11-21 14:03:01 2020-11-21 14:23:01 Laboratory Only Lab, Adc Fam Pob Jared [facility] 1.2.840.114 350.1.13.10 4.2.7.2.686 [id number] [facility] 2020-11-21 14:20:00 2020-11-21 14:20:00 Outpatient R CHRISTINE GREGORY [facility] [id number] [facility] 2020-11-21 00:00:00 2020-11-21 00:00:00 Letter (Out) Doctor Unassigned, [place] [facility] 1.2.840.114 350.1.13.10 4.2.7.2.686 [id number] 2020-11-21 00:00:00 2020-11-21 00:00:00 Letter (Out) Doctor Unassigned, [place] [facility] 1.2.840.114 350.1.13.10 4.2.7.2.686 [id number] [id number] 2020-11-21 00:00:00 2020-11-21 00:00:00 Letter (Out) Doctor Unassigned, [place] [facility] 1.2.840.114 350.1.13.10 4.2.7.2.686 [id number] 044 [id number] [facility] 2020-11-21 00:00:00 2020-11-21 00:00:00 Letter (Out) Doctor Unassigned, [place] [facility] 1.2.840.114 350.1.13.10 4.2.7.2.686 [id number] [facility] 2020-11-16 21:00:00 2020-11-17 04:59:59 Outpatient nullFlavo r [facility] [id number] [place] Mast 2020-11-14 06:55:00 2020-11-14 08:58:00 Hospital Encounter Tre Meza [facility] Surgical [place] 1.2.840.114 350.1.13.10 4.2.7.2.686 [id number] 2020-11-14 06:55:00 2020-11-14 08:58:00 Hospital Encounter Tre Meza [facility] Surgical [place] 1.2.840.114 350.1.13.10 4.2.7.2.686 [id number] [id number] [facility] 2020-11-14 08:00:00 2020-11-14 08:42:00 Surgery [facility] 1.2.840.114 350.1.13.10 4.2.7.2.686 [id number] [id number] 2020-11-14 08:00:00 2020-11-14 08:42:00 Surgery DaniTre [facility] 1.2.840.114 350.1.13.10 4.2.7.2.686 [id number] 020 [id number] [facility] 2020-11-14 00:00:00 2020-11-14 00:00:00 Orders Only Doctor Unassigned, [place] [facility] 1.2.840.114 350.1.13.10 4.2.7.2.686 [id number] [id number] 2020-11-14 00:00:00 2020-11-14 00:00:00 Orders Only Doctor Unassigned, [place] [facility] 1.2.840.114 350.1.13.10 4.2.7.2.686 [id number] [id number] [facility] 2020-11-05 11:14:30 2020-11-05 11:29:30 Hospitality Director Visit Pob, Adc Lab Main [facility] 1.2.840.114 350.1.13.10 4.2.7.2.686 [id number] 2020-11-05 11:14:30 2020-11-05 11:29:30 Hospitality Director Visit Pob, Adc Lab Silvino Tre Meza [facility] Niyah Rodrigues [facility] 1.2.840.114 350.1.13.10 4.2.7.2.686 [id number] [facility] 2020-11-05 11:15:00 2020-11-05 11:15:00 Outpatient TRE ARELLANO [facility] [id number] [facility] 2020-11-05 00:00:00 2020-11-05 00:00:00 Orders Only Doctor Unassigned, [place] [address].2.840.114 350.1.13.10 4.2.7.2.686 [id number] 2020-11-05 00:00:00 2020-11-05 00:00:00 Orders Only Doctor Unassigned, [place] [facility] 1.2.840.114 350.1.13.10 4.2.7.2.686 [id number] [facility] 2020-09-28 21:00:00 2020-09-29 04:59:59 Outpatient nullFlavo r [facility] [id number] [place] Mast 2020-06-28 14:15:00 2020-06-28 14:15:00 Ambulatory Pre-Reg nullFlavo r [facility] [id number] [place] Mast 2020-06-28 14:15:00 2020-06-28 14:15:00 Ambulatory Pre-Reg nullFlavo r [facility] [id number] [place] Mast 2020-06-14 15:00:00 2020-06-15 05:59:59 Outpatient nullFlavo r [facility] [id number] [place] Mast 2020-05-04 15:15:00 2020-05-04 15:15:00 Ambulatory Pre-Reg nullFlavo r [facility] [id number] 07 Evelynfrancesca russo [place] 2020-03-16 21:45:00 2020-03-16 21:45:00 Ambulatory Pre-Reg nullFlavo r [facility] [id number] Evelynfrancesca russo Pro 2019-12-21 18:30:00 2019-12-21 18:30:00 Ambulatory Pre-Reg nullFlavo r [facility] [id number] Evelynfrancesca russo [place] 2019-10-26 19:45:00 2019-10-27 04:59:59 Outpatient nullFlavo r [facility] [id number] Evelynfrancesca russo [place] 2019-10-26 19:45:00 2019-10-26 19:45:00 Ambulatory Pre-Reg nullFlavo r [facility] [id number] Evelynfrancesca russo [place] 2019-09-28 20:15:00 2019-09-29 04:59:59 [facility] nullFlavo r [facility] [id number] [place] [facility] 13:15:00 2019-09-24 04:59:59 Outpatient nullFlavo r [facility] [id number] [place] 2019-09-22 15:00:00 2019-09-23 04:59:59 Outpatient nullFlavo r [facility] [id number] Evelynfrancesca rafaela [place] 2019-08-04 00:00:00 2019-08-04 00:00:00 [facility] 1.2.840.114 350.1.13.10 4.2.7.2.686 [id number] 2019-08-04 00:00:00 2019-08-04 00:00:00 [facility].2.[facility].114 350.1.13.10 4.2.7.2.686 [id number] 019 [id number] 2019-08-04 00:00:00 2019-08-04 00:00:00 Telephone Eli [facility] 1.2.840.114 350.1.13.10 4.2.7.2.686 [id number] [id number] [facility] 2019-08-04 00:00:00 2019-08-04 00:00:00 Telephone Silvia Long [facility] 1.2840.114 350.1.13.10 4.2.7.2.686 [id number] [id number] [facility] 2019-08-02 08:40:00 2019-08-02 08:40:00 Outpatient R [facility]MARIAMBARBAR[facility] [id number] [facility] 2019-08-02 08:02:14 2019-08-02 08:22:14 [address] 1.840.114 350.1.13.10 4.2.7.2.686 [id number] 2019-08-02 08:02:14 2019-08-02 08:22:14 Urgent Care [facility] [address] [facility] 1.0.114 350.1.13.10 4.2.7.2.686 [id number] [facility] Results Test Description Test Time Test Comments Results Result Co mments Source PROTHROMBIN [id number] 17:19:00* Test Item Value Reference Range Interpretation Comme nts PROTHROMBIN TIME PATIENT (test code = PTP) 11.3 secs 9.4-12.5 N INTERNATIONAL NORMAL RATIO (test code = INR) 1.02 <2.0 RECOMMENDED THER APEUTIC RANGE FOR ORAL ANTICOAGULANTTREATMENT: CONDITION INRProphylaxis of venous thrombosis in 2.0 - 3.0 high-risk medical or surgical patientsTreatment of venous thrombosis 2.0 - 3.0Prevention of embolism 2.0 - 3.0Prevention of recurrent embolism, or 3.0 - 4.5 patients with mechanical prosthetic intravascular valves IS PATIENT ON ANTICOAGULANTS ? NHas Lab been notified if Patient is on Heparin Drip? NOTHROMBOPLASTIN TIME [id number] 17:19:00* Test Item Value Reference Range Interpretation Comme nts PTT ACTIVATED (test code = APTT) 34.9 secs 25.1-36.5 N IS PATIENT ON ANTICOAGULANTS ? OHas Lab been notified if Patient is on Heparin Drip? NOCBC W/AUTO [id number] 16:13:00* Test Item Value Reference Range Interpretation Comme nts WHITE BLOOD CELL (test code = WBC) 8.3 K/mm3 5.5-11.0 N RED BLOOD CELL (test code = RBC) 4.53 M/mm3 4.2-5.4 N HEMOGLOBIN (test code = HGB) 13.1 g/dL 12-16 N HEMATOCRIT (test code = HCT) 41.1 % 37-47 N MEAN CELL VOLUME (test code = MCV) 91 fL 80-98 N MEAN CELL HGB (test code = MCH) 28.9 pg 27-34 N MEAN CELL HGB CONCENTRATION (test code = MCHC) 31.9 g/dL 30.8-34.1 N RED CELL DISTRIBUTION WIDTH (test code = RDW) 15.5 % 11-16 N PLT (test code = PLT) 197 K/mm3 130-400 N MEAN PLATELET VOLUME (test c ode = MPV) 9.8 fL 8.9-12.1 N NEUTROPHIL % (test code = NT%) 60.4 % 45-70 N LYMPHOCYTE % (test code = LY%) 26.4 % 20-40 N MONOCYTE % (test code = MO%) 9.7 % 3-10 N EOSINOPHIL % (test code = EO%) 2.5 % 1-5 N BASOPHIL % (test code = BA%) 0.5 % 0.0-1.1 N NEUTROPHIL # (test code = NT#) 5.00 K/mm3 2.00-7.50 N LYMPHOCYTE # (test code = LY#) 2.19 K/mm3 1.50-4.00 N MONOCYTE # (test code = MO#) 0.80 K/mm3 0.2-0.8 N EOSINOPHIL # (test code = EO#) 0.21 K/mm3 0.04-0.4 N BASOPHIL # (test code = BA#) 0.04 K/mm3 0.02-0.10 N MANUAL DIFF REQUIRED (test c ode = MDIFF) NO MANUAL DIFF NUCLEATED RED BLOOD CELL (te st code = NRBC) 0 % 0-0 N COMPREHENSIVE METABOLIC [id number] 16:08:00* Test Item Value Reference Range Interpretation Comme nts SODIUM (test code = NA) 141 mmol/L 136-145 N POTASSIUM (test code = K) 4.1 mmol/L 3.5-5.1 N CHLORIDE (test code = CL) 102.0 mmol/L 98-107 N CARBON DIOXIDE (test code = CO2) 34.8 mmol/L 21-32 H GLUCOSE (test code = GLU) 111 mg/dL 74-106 H BLOOD UREA NITROGEN (test code = BUN) 11 mg/dL 7-18 N GLOMERULAR FILTRATION RATE (test code = GFR) 67.0 >60 The Glomerular Filtration Rate is a calculated parameterbased on serum Creatinine, patient age and sex. GFR valuesless than 60 mL/min/1.73 square meters are indicative ofChronic Kidney Disease. Values less than 15 mL/min/1.73square meters indicate Kidney failure. The calculation forGFR is based on the CKD-EPI (2020) calculation. This formulais race indifferent and is the recommended formula for GFRby the National Kidney Foundation for Adults.The GFR will not calculate if the sex is unknown or if thepatient's age is <18 years. CREATININE (test code = CREAT) 0.93 mg/dL 0.55-1.02 N TOTAL PROTEIN (test code = PROT) 6.6 g/dL 6.4-8.2 N ALBUMIN (test code = ALB) 3.9 g/dL 3.4-5.0 N GLOBULIN (test code = GLOB) 2.7 g/dL 2.2-4.2 N ALBUMIN/GLOBULIN RATIO (test code = A/G) 1.4 0.7-2.0 N CALCIUM (test code = CA) 8.6 mg/dL 8.5-10.1 N BILIRUBIN TOTAL (test code = BILT) 0.70 mg/dL 0.2-1.00 N SGOT/AST (test code = AST) 15.0 U/L 15-37 N SGPT/ALT (test code = ALT) 29.0 U/L 14-59 N ALKALINE PHOSPHATASE TOTAL (test code = ALKP) 83 U/L 46-116 N POCT GLUCOSE (AUTOMATED)2023-12-21 17:45:45* Test Item Value Reference Range Interpretation Comme nts POCT GLU (test code = 7196803300) 216 mg/dL 70-110 H Lab Interpretation (test cod e = 80780-7) [facility] 17:45:45* Test Item Value Reference Range Interpretation Comme nts POCT GLU (test code = 1593325988) 216 mg/dL 70-110 H Lab Interpretation (test cod e = 12669-7) [facility] [id number] 15:23:22Left Heart Cath/Coronary Angiography Buck Mello Date of Service: 12/21/2023 ?10:13 AM Attending Faculty: Raj Samaniego MDFellow: Kendall Barakat Physician: Charlotte Stovall MD Procedures Performed:Coronary angiography and Left heart catheterization Indication/Diagnosis: ACS ([place]/NSTEMI) Consent: Risks, benefits, alternatives and complications of the procedure discussed with the patient,who understood and agreed to proceed. Aseptic technique: Chlorprep Local Anesthesia: 1% lidocaine without epinephrine Sedation: Moderate Access site: right femoral artery Closure Method: Manual Pressure Sterile dressing: yes Complications: none Procedures: After patient identification/verification,the patient was thereafter transferred to the wastewater analyst lab analyst table. ?The access site was prepped and draped in usual sterile fashion. After administering sedation, time out was done. Under ultrasound guidance, using modified Seldinger technique, the right femoral artery was accessed using a micropuncturekit. The access was upgraded to a 5 Fr sheath. A 5 Fr JL 4.0 catheter was then used to cannulate the LM. Selective coronary angiography was done using several views. A 5 Fr JR 4.0 was used to cross the AV with the J wire and the catheter was advanced into the LV where selective LVEDP was measured. T he catheter was then used to cannulate the RCA and selective coronary angiography was done using multiple views. The attending physician was present throughout the procedure and provided the highest level of supervision. Findings: Coronary dominance: left Left main: Normal LAD: technically mid but f unctionally proximal LAD stent with vessel extending to [place] with wrap around. There is a "candy wrapper" appearence at the distal end of the LAD stent with about 50% stenosis after which the LAD tapers off with mild diffuse disease ? LCX: ?OM1: Patent proximal stent ? RCA: Non dominant LVEDP: 10 mmHg Grafts: Post-Procedure Sedation AddendumImmediately prior tostart of sedation, the patient was evaluated and there was no change from the pre-procedure evaluation. I was present and directed medical care.The patient underwent moderate sedation ?for the procedure. The medications administered were recorded in the MAR; oxygenation, ventilation and circulation were monitored continuously and were recorded in the EMR. I evaluated the patient after the procedure.The patient was evaluated immediately as recovering from sedation. Complications: None Impression:50% stenosis at distal edge of LAD stentPatent OM1 stent Images reviewed by Dr Sanchez who recommended optimizing medical therapy and clinic follow up. Plan:Optimize medical therapy with focus on antianginalsFollow up with DR Sanchez in clinic to reassess symptoms/need for revascularizationFindings and plan were discussed with patient in wastewater analyst lab analyst by me and Dr Daniel Samaniego MD 12/21/2023 10:13 AM Procedure DetailsLeft Heart Cath/Coronary Angiography Buck Mello Date of Service: 12/21/2023 10:13 AM Attending Faculty: Raj Samaniego MDFellow: Kendall Uriostegui [facility] Physician: Charlotte Stovall MD Procedures Performed:Coronary angiography and Left heart catheterization Indication/Diagnosis: ACS ([place]/NSTEMI) Consent: Risks, benefits, alternatives and complications of the procedure discussed with the patient, who understood and agreed to proceed. Aseptic technique: Chlorprep Local Anest hesia: 1% lidocaine without epinephrine Sedation: Moderate Access site: right femoral artery Closure Method: Manual Pressure Sterile dressing: yes Complications: none Procedures: After patient identification/verification, the patient was thereafter transferred to the wastewater analyst lab analyst table. The access sitewas prepped and draped in usual sterile fashion. After administering sedation, time out was done. Under ultrasound guidance, using modified Seldinger technique, the right femoral artery was accessed using a micropuncture kit. The access was upgraded to a 5 Fr sheath. A 5 Fr JL 4.0 catheter was thenused to cannulate the LM. Selective coronary angiography was done using several views. A 5 Fr JR 4.0 was used to cross the AV with the J wire and the catheter was advanced into the LV where selectiveLVEDP was measured. The catheter was then used to cannulate the RCA and selective coronary angiography was done using multiple views. The attending physician was present throughout the procedure and provided the highest level of supervision. Findings: Coronary dominance: left Left main: Normal LAD:technically mid but functionally proximal LAD stent with vessel extending to [place] with wrap around.There is a "candy wrapper" appearence at the distal end of the LAD stent with about 50% stenosis after which the LAD tapers off with mild diffuse disease LCX: OM1: Patent proximal stent RCA: Non dominant LVEDP: 10 mmHg Grafts: Post-Procedure Sedation AddendumImmediately prior to start of sedation, the patient was evaluated and there was no change from the pre-procedure evaluation. I was present and directed medical care.The patient underwent moderate sedation for the procedure. The medications administered were recorded in the MAR; oxygenation, ventilation and circulation were monitored continuously and were recorded in the EMR. I evaluated the patient after the procedure.The patient was evaluated immediately as recovering from sedation. Complications: None Impression:1. 50% stenosis at distal edge of LAD stent2. Patent OM1 stent Images reviewed by Dr Sanchez who recommended optimizing medical therapy and clinic follow up. Plan:1. Optimize medical therapy with focus on antianginals2. Follow up with DR Sanchez in clinic to reassess symptoms/need for revascularization3. Findings and plan were discussed with patient in wastewater analyst lab analyst by me and Dr Daniel Samaniego MD 12/21[facility]2023 10[facility] 11:10:42* Test Item Value Reference Range Interpretation Comme nts POCT GLU (test code = 3305304783) 114 mg/dL 70-110 H Lab Interpretation (test cod e = 17082-3) Abnormal [facility] GLUCOSE (AUTOMATED)2023-12-21 11:10:42* Test Item Value Reference Range Interpretation Comme nts POCT GLU (test code = 6893721934) 114 mg/dL 70-110 H Lab Interpretation (test cod e = 88895-1) Abnormal [facility] GLUCOSE (AUTOMATED)2023-12-21 01:18:43* Test Item Value Reference Range Interpretation Comme nts POCT GLU (test code = 8266507434) 176 mg/dL 70-110 H Lab Interpretation (test cod e = 13308-0) [facility] 01:18:43* Test Item Value Reference Range Interpretation Comme nts POCT GLU (test code = 2861776585) 176 mg/dL 70-110 H Lab Interpretation (test cod e = 42587-7) [facility] use with Heparin Infusion)2023-12-20 23:18:42* Test Item Value Reference Range Interpretation Comme nts APTT Patient (test code = 3173-2) 55 26-36 H Lab Interpretation (test cod e = 67324-4) [facility]normal [facility] (for use with Heparin Infusion)2023-12-20 23:18:42* Test Item Value Reference Range Interpretation Comme nts APTT Patient (test code = 3173-2) 55 26-36 H Lab Interpretation (test cod e = 05399-9) Abnormal [facility] GLUCOSE (AUTOMATED)2023-12-20 21:48:39* Test Item Value Reference Range Interpretation Comme nts POCT GLU (test code = 0146289850) 144 mg/dL 70-110 H Lab Interpretation (test cod e = 94900-3) [facility]20 21:48:39* Test Item Value Reference Range Interpretation Comme nts POCT GLU (test code = 6641432077) 144 mg/dL 70-110 H Lab Interpretation (test cod e = 87234-5) [facility] 17:30:42* Test Item Value Reference Range Interpretation Comme nts POCT GLU (test code = 3597376739) 185 mg/dL 70-110 H Lab Interpretation (test cod e = 58693-8) [facility]20 17:30:42* Test Item Value Reference Range Interpretation Comme nts POCT GLU (test code = 6300710831) 185 mg/dL 70-110 H Lab Interpretation (test cod e = 53694-7) [facility]20 01:51:06* Test Item Value Reference Range Interpretation Comme [facility] POCT GLU (test code = 8156574147) 146 mg/dL 70-110 H Lab Interpretation (test cod e = 14996-2) [facility]-20 01:51:06* Test Item Value Reference Range Interpretation Comme [facility] POCT GLU (test code = 4805803733) 146 mg/dL 70-110 H Lab Interpretation (test cod e = 33999-9) [facility]normal [facility]2023-12-20 01:44:54* Test Item Value Reference Range Interpretation Comme [facility] APTT Patient (test code = 3173-2) 136 26-36 HH Lab Interpretation (test cod e = 68040-9) [facility] Infusion[facility]2023-12-20 01:44:54* Test Item Value Reference Range Interpretation Comme [facility] APTT Patient (test code = 3173-2) 136 26-36 HH Lab Interpretation (test cod e = 03350-5) [facility]normal [facility] [id number] 00:15:43* Test Item Value Reference Range Interpretation Comme [facility] Height (test code = 2528371388) 66 in Weight (test code = 9800257123) 210 lbs Systolic BP (test code = 8208607989) 138 mmHg Diastolic BP (test code = 7801822789) 68 mmHg Heart Rate (test code = 7816448729) 60 bpm BSA (test code = 2394424797) 2.04 m2 LVOT diameter (test code = 8218939702) 2.06 cm LVOT area (test code = 7679626925) 3.30 cm2 Ao root diam (test code = 9972792928) 3.60 cm Aortic root (test code = 3167976010) 3.6 cm Ao root annulus (test code = 1381552866) 3.6 cm LA size (test code = 5699752052) 4.1 cm MV Peak E Vivien (test code = 0303917977) 79.3 cm/s MV Peak A Vivien (test code = 5023378954) 60.8 cm/s E/A ratio (test code = 3815153988) 1.30 ratio E wave decelartion time (test code = 0009759347) 0.15 s MV Prop V (test code = 9407852499) 35.70 cm/s LAV(MOD-sp4) (test code = 6885843934) 51.00 mL Tapse (test code = 0100571687) 3.8 cm LVOT stroke volume (test code = 1116526992) 71.10 cm3 LVOT peak vivien (test code = 2132126654) 103.3 cm/s LVOT mn grad (test code = 5356723011) 2.0 mmHg AV LVOT peak gradient (test code = 1961905368) 4.3 mmHg LVOT peak VTI (test code = 5176246124) 21.2 cm LV V1 mean (test code = 3601039045) 66.30 cm/s Ao peak vivien (test code = 6201183747) 158.4 cm/s AV area peak vivien (test code = 4137752050) 2.2 cm2 Ao max PG (test code = 1568566543) 10.00 mm[Hg] AV peak gradient (test code = 7913339370) 10.0 mmHg LA Volume Index (BP) (test code = 2529236930) 26.1 mL/m2 LA volume (BP) (test code = 0912740517) 53.3 mL LAV(MOD-sp2) (test code = 0297634132) 55.30 mL LVIDD (test code = 6688340412) 5.30 cm Left Ventricular End Diastolic Volume by Teichholz Method (test code = 7514304) 135.4 mL IVS (test code = 2840382984) 1.29 cm Interventricular Septum Diastolic Thickness by 2D (test code = 9014531) 1.29 cm LVPWD (test code = 2497078320) 1.04 cm PW (test code = 9646730486) 1.04 cm 0.6-1.1 EF(Teich) (test code = 1523207096) 62.70 % LVIDS (test code = 2568451761) 3.50 cm Left Ventricular End Systolic Volume by Teichholz Method (test code = 1574903) 50.5 mL FS (test code = 8592029424) 34 % EF - 2D (test code = 29233484) 62.70 % Radiology Study observation (narrative) (test code = 28772-2) CHRISTINE (test code = CHRISTINE) ?Technically difficult study. ?Contrast was used for accurate assessment of LV systolic function, nonetheless images remain challenging. ?Left?Ventricle: Left ventricle size is normal. Mildly increased wall thickness. There is mild concentric hypertrophy. Normal wall motion. Normal systolic function with a visually estimated EF of 55 - 60%. Normal diastolic function. ?Right?Ventricle: Right ventricle is grossly normal in size and function. ?Normal LA and RA size. ?Tricuspid?Valve: Trace transvalvular regurgitation. Insufficient tricuspid regurgitation jet to estimate RVSP . ?IVC/SVC: IVC diameter is less than or equal to 21 mm and decreases greater than 50% during inspiration; therefore the estimated right atrial pressure is normal (~0-5 mmHg). ?Pericardium: No pericardial effusion. Left VentricleLeft ventricle size is normal. Mildly increased wall thickness. There is mild concentric hypertrophy. Normal wall motion. Normal systolic function with a visually estimated EF of 55 - 60%. Normal diastolic function. No thrombus present. .Right VentricleRight ventricle is normal in size and function.Left AtriumLeft atrium size is normal.Right AtriumRight atrium size is normal.IVC/SVCIVC diameter is less than or equal to 21 mm and decreases greater than 50% during inspiration; therefore the estimated right atrial pressure is normal (~0-5 mmHg).Mitral ValveMitral valve structure is normal. No transvalvular regurgitation. No stenosis.Tricuspid ValveNot well visualized. Trace transvalvular regurgitation. Insufficient tricuspid regurgitation jet to estimate RVSP . No stenosis.Aortic ValveTricuspid. Mildly thickened cusps. Mildly calcified cusps. No transvalvular regurgitation. No evidence of aortic stenosis.Pulmonic ValveNot well visualized.Ascending AortaNormal sized aortic root.PericardiumEvide nce of epicardial fat. No pericardial effusion.Study DetailsStudy quality experienced technical difficulty. A complete echocardiogram was performed using 2D, color flow Doppler and spectral Doppler. 3 mL of Optison ultrasound enhancing agent used. Patient exhibited sinus rhythm. [facility] [id number] 00:15:43* Test Item Value Reference Range Interpretation Comme nts Height (test code = 7088836267) 66 in Weight (test code = 5469113704) 210 lbs Systolic BP (test code = 7001244863) 138 mmHg Diastolic BP (test code = 3934976700) 68 mmHg Heart Rate (test code = 1980344695) 60 bpm BSA (test code = 1696242582) 2.04 m2 LVOT diameter (test code = 9817289671) 2.06 cm LVOT area (test code = 7503031313) 3.30 cm2 Ao root diam (test code = 4887911905) 3.60 cm Aortic root (test code = 9203635752) 3.6 cm Ao root annulus (test code = 3061937564) 3.6 cm LA size (test code = 9731704108) 4.1 cm MV Peak E Vivien (test code = 5974927690) 79.3 cm/s MV Peak A Vivien (test code = 7621040447) 60.8 cm/s E/A ratio (test code = 5312611618) 1.30 ratio E wave decelartion time (test code = 4567512056) 0.15 s MV Prop V (test code = 9243837991) 35.70 cm/s LAV(MOD-sp4) (test code = 0814348802) 51.00 mL Tapse (test code = 6730320232) 3.8 cm LVOT stroke volume (test code = 7738526142) 71.10 cm3 LVOT peak vivien (test code = 3902298650) 103.3 cm/s LVOT mn grad (test code = 0323110747) 2.0 mmHg AV LVOT peak gradient (test code = 4043141479) 4.3 mmHg LVOT peak VTI (test code = 2334684056) 21.2 cm LV V1 mean (test code = 8582281615) 66.30 cm/s Ao peak vivien (test code = 4815616448) 158.4 cm/s AV area peak vivien (test code = 0775618126) 2.2 cm2 Ao max PG (test code = 0629122084) 10.00 mm[Hg] AV peak gradient (test code = 6491826492) 10.0 mmHg LA Volume Index (BP) (test code = 9330067240) 26.1 mL/m2 LA volume (BP) (test code = 4123958242) 53.3 mL LAV(MOD-sp2) (test code = 0969141705) 55.30 mL LVIDD (test code = 3546307967) 5.30 cm Left Ventricular End Diastolic Volume by Teichholz Method (test code = 7263335) 135.4 mL IVS (test code = 7669601159) 1.29 cm Interventricular Septum Diastolic Thickness by 2D (test code = 1996971) 1.29 cm LVPWD (test code = 6826966162) 1.04 cm PW (test code = 4528714941) 1.04 cm 0.6-1.1 EF(Teich) (test code = 7509477469) 62.70 % LVIDS (test code = 4256649698) 3.50 cm Left Ventricular End Systolic Volume by Teichholz Method (test code = 8097611) 50.5 mL FS (test code = 4328559761) 34 % EF - 2D (test code = 35204333) 62.70 % Radiology Study observation (narrative) (test code = 93021-4) CHRISTINE (test code = CHRISTINE) ?Technically difficult study. ?Contrast was used for accurate assessment of LV systolic function, nonetheless images remain challenging. ?Left?Ventricle: Left ventricle size is normal. Mildly increased wall thickness. There is mild concentric hypertrophy. Normal wall motion. Normal systolic function with a visually estimated EF of 55 - 60%. Normal diastolic function. ?Right?Ventricle: Right ventricle is grossly normal in size and function. ?Normal LA and RA size. ?Tricuspid?Valve: Trace transvalvular regurgitation. Insufficient tricuspid regurgitation jet to estimate RVSP . ?IVC/SVC: IVC diameter is less than or equal to 21 mm and decreases greater than 50% during inspiration; therefore the estimated right atrial pressure is normal (~0-5 mmHg). ?Pericardium: No pericardial effusion. Left VentricleLeft ventricle size is normal. Mildly increased wall thickness. There is mild concentric hypertrophy. Normal wall motion. Normal systolic function with a visually estimated EF of 55 - 60%. Normal diastolic function. No thrombus present. .Right VentricleRight ventricle is normal in size and function.Left AtriumLeft atrium size is normal.Right AtriumRight atrium size is normal.IVC/SVCIVC diameter is less than or equal to 21 mm and decreases greater than 50% during inspiration; therefore the estimated right atrial pressure is normal (~0-5 mmHg).Mitral ValveMitral valve structure is normal. No transvalvular regurgitation. No stenosis.Tricuspid ValveNot well visualized. Trace transvalvular regurgitation. Insufficient tricuspid regurgitation jet to estimate RVSP . No stenosis.Aortic ValveTricuspid. Mildly thickened cusps. Mildly calcified cusps. No transvalvular regurgitation. No evidence of aortic stenosis.Pulmonic ValveNot well visualized.Ascending AortaNormal sized aortic root.PericardiumEvide nce of epicardial fat. No pericardial effusion.Study DetailsStudy quality experienced technical difficulty. A complete echocardiogram was performed using 2D, color flow Doppler and spectral Doppler. 3 mL of Optison ultrasound enhancing agent used. Patient exhibited sinus rhythm. [facility] GLUCOSE (AUTOMATED)2023-12-19 22:11:36* Test Item Value Reference Range Interpretation Comme [facility] POCT GLU (test code = 0129679235) 115 mg/dL 70-110 H Lab Interpretation (test cod e = 01031-0) Abnormal [facility] GLUCOSE (AUTOMATED)2023-12-19 22:11:36* Test Item Value Reference Range Interpretation Comme [facility] POCT GLU (test code = 0255660764) 115 mg/dL 70-110 H Lab Interpretation (test cod e = 51842-6) [facility]normal [facility] / [id number] 17:30:06* Test Item Value Reference Range Interpretation Comme [facility] PROTIME PATIENT (test code = 5964-2) 12.2 10.1-12.6 INR (test code = 6301-6) 1.1 Normal INR <1.1; Warfarin Therapeutic range 2.0 to 3.0 or 2.5 to 3.5, depending upon the indications. Lab Interpretation (test code = 15871-6) Normal [facility] 17:30:06* Test Item Value Reference Range Interpretation Comme [facility] APTT Patient (test code = 3173-2) 37 26-36 H Lab Interpretation (test cod e = 53042-0) [facility]normal [facility] / [id number] 17:30:06* Test Item Value Reference Range Interpretation Comme [facility] PROTIME PATIENT (test code = 5964-2) 12.2 10.1-12.6 INR (test code = 6301-6) 1.1 Normal INR <1.1; Warfarin Therapeutic range 2.0 to 3.0 or 2.5 to 3.5, depending upon the indications. Lab Interpretation (test code = 15818-2) Normal [place] [id number] 17:30:06* Test Item Value Reference Range Interpretation Comme nts APTT Patient (test code = 3173-2) 37 26-36 H Lab Interpretation (test cod e = 26159-3) Abnormal [facility] GLUCOSE (AUTOMATED)2023-12-19 17:08:03* Test Item Value Reference Range Interpretation Comme nts POCT GLU (test code = 2697952339) 191 mg/dL 70-110 H Lab Interpretation (test cod e = 43420-3) Abnormal [facility] GLUCOSE (AUTOMATED)2023-12-19 17:08:03* Test Item Value Reference Range Interpretation Comme nts POCT GLU (test code = 9355455124) 191 mg/dL 70-110 H Lab Interpretation (test cod e = 43507-9) Abnormal [facility] GLUCOSE (AUTOMATED)2023-12-19 13:54:32* Test Item Value Reference Range Interpretation Comme nts POCT GLU (test code = 5897626062) 104 mg/dL 70-110 Lab Interpretation (test cod e = 49827-7) Normal [facility] GLUCOSE (AUTOMATED)2023-12-19 13:54:32* Test Item Value Reference Range Interpretation Comme nts POCT GLU (test code = 3013386014) 104 mg/dL 70-110 Lab Interpretation (test cod e = 84017-2) Normal [facility] GLUCOSE (AUTOMATED)2023-12-19 01:17:02* Test Item Value Reference Range Interpretation Comme nts POCT GLU (test code = 1518889081) 198 mg/dL 70-110 H Lab Interpretation (test cod e = 19133-8) Abnormal [facility] GLUCOSE (AUTOMATED)2023-12-19 01:17:02* Test Item Value Reference Range Interpretation Comme nts POCT GLU (test code = 3376545484) 198 mg/dL 70-110 H Lab Interpretation (test cod e = 27979-7) Abnormal [facility] GLUCOSE (AUTOMATED)2023-12-18 23:24:31* Test Item Value Reference Range Interpretation Comme nts POCT GLU (test code = 6590716941) 245 mg/dL 70-110 H Lab Interpretation (test cod e = 72921-5) Abnormal [facility] GLUCOSE (AUTOMATED)2023-12-18 23:24:31* Test Item Value Reference Range Interpretation Comme nts POCT GLU (test code = 5929463710) 245 mg/dL 70-110 H Lab Interpretation (test cod e = 80518-5) Abnormal [facility] GLUCOSE (AUTOMATED)2023-12-18 20:48:31* Test Item Value Reference Range Interpretation Comme nts POCT GLU (test code = 6243234997) 83 mg/dL 70-110 Lab Interpretation (test cod e = 62030-8) Normal [facility] GLUCOSE (AUTOMATED)2023-12-18 20:48:31* Test Item Value Reference Range Interpretation Comme nts POCT GLU (test code = 0392118968) 83 mg/dL 70-110 Lab Interpretation (test cod e = 14134-9) Normal [facility] 1 [id number] 18:14:37ORDERING PHYSICIAN: CHARLOTTE STOVALL. HISTORY: chest pain TECHNIQUE: AP COMPARISON: None. FINDINGS: Lungs: ?No focal consolidation is seen. Pleura: ?No effusion or pleural disease is seen. ?No pneumothorax. Mediastinum/Alicia: ?No masses or adenopathy. Heart: ?The heart is not enlarged. Other: ?No acute osseous abnormality is seen.[facility] CHEST 1 [id number] 18:14:37ORDERING PHYSICIAN: CHARLOTTE STOVALL. HISTORY: chest pain TECHNIQUE: AP COMPARISON: None. FINDINGS: Lungs: ?No focal consolidation is seen. Pleura: ?No effusion or pleural disease is seen. ?No pneumothorax. Mediastinum/Alicia: ?No masses or adenopathy. Heart: ?The heart is not enlarged. Other: ?No acute osseous abnormality is seen.[facility] 2023-[facility]-18 18:08:35* Test Item Value Reference Range Interpretation Comme nts TROPONIN I (test code = 6818366872) 0.003 ng/mL <=0.034 CHRISTINE (test code = CHRISTINE) Reference (Normal) Range (defined by the 99th percentile reference limit): <= 0.034 ng/mL Note: Cardiac troponin begins to rise 3-4 hours after the onset of ischemia. Repeat in 4-6 hours if the sample was drawn within 3-4 hours of the onset of the symptom and found normal. Diagnosis of myocardial injury is made with acute changes in cTn concentrations with at least one serial sample above the 99th percentile upper reference limit (URL), taken together with the patient's clinical presentation. Biotin has been reported to cause a negative bias, interpret results relative to patient's use of biotin. Lab Interpretation (test code = 94558-4) Normal [facility] [id number] 18:08:35* Test Item Value Reference Range Interpretation Comme nts TROPONIN I (test code = 7673323248) 0.003 ng/mL <=0.034 CHRISTINE (test code = CHRISTINE) Reference (Normal) Range (defined by the 99th percentile reference limit): <= 0.034 ng/mL Note: Cardiac troponin begins to rise 3-4 hours after the onset of ischemia. Repeat in 4-6 hours if the sample was drawn within 3-4 hours of the onset of the symptom and found normal. Diagnosis of myocardial injury is made with acute changes in cTn concentrations with at least one serial sample above the 99th percentile upper reference limit (URL), taken together with the patient's clinical presentation. Biotin has been reported to cause a negative bias, interpret results relative to patient's use of biotin. Lab Interpretation (test code = 28165-3) Normal [facility]MINAL [id number]-[id number] 18:05:56* Test Item Value Reference Range Interpretation Comme nts NT-proBNP (test code = 17109-3) 66 pg/mL <=125 Lab Interpretation (test cod e = 72078-7) Normal [facility]MINAL [id number] 18:05:56* Test Item Value Reference Range Interpretation Comme nts NT-proBNP (test code = 16746-5) 66 pg/mL <=125 Lab Interpretation (test cod e = 81835-5) Normal [facility]. METABOLIC PANEL (11135)2023-12-18 17:59:54* Test Item Value Reference Range Interpretation Comme nts NA (test code = 3329959423) 136 mmol/L 135-145 K (test code = 0322485017) 4.2 mmol/L 3.5-5.0 CL (test code = 9161350148) 101 mmol/L 98-108 CO2 TOTAL (test code = 9555360808) 28 mmol/L 23-31 AGAP (test code = 2735191773) 7 2-16 BUN (test code = 4829966570) 12 mg/dL 7-23 GLUCOSE (test code = 1496187258) 173 mg/dL 70-110 H CREATININE (test code = 2160-0) 0.86 mg/dL 0.60-1.25 TOTAL BILI (test code = 7347214553) 0.7 mg/dL 0.1-1.1 CALCIUM (test code = 7324674893) 8.8 mg/dL 8.6-10.6 T PROTEIN (test code = 7124094733) 7.5 g/dL 6.3-8.2 ALBUMIN (test code = 7735302720) 4.3 g/dL 3.5-5.0 ALK PHOS (test code = 0928760162) 74 U/L 34-122 ALTv (test code = 1742-6) 25 U/L 5-50 AST(SGOT) (test code = 5151512038) 50 U/L 13-40 H eGFR (test code = 84609-9) 94.9 mL/min/1.73m2 CKD-EPI eGFR (2020). Assuming creatinine has been stable day-to-day for at least three months, the eGFR indicates Category G1 (>= 90 mL/min/1.73 m2) Lab Interpretation (test code = 40197-0) [facility]normal [facility] MET[facility]OLIC PANEL (53316)2023-12-18 17:59:54* Test Item Value Reference Range Interpretation Comme nts NA (test code = 7577873224) 136 mmol/L 135-145 K (test code = 3790261917) 4.2 mmol/L 3.5-5.0 CL (test code = 5798342233) 101 mmol/L 98-108 CO2 TOTAL (test code = 0081690595) 28 mmol/L 23-31 AGAP (test code = 3681771256) 7 2-16 BUN (test code = 1245802668) 12 mg/dL 7-23 GLUCOSE (test code = 2046359534) 173 mg/dL 70-110 H CREATININE (test code = 2160-0) 0.86 mg/dL 0.60-1.25 TOTAL BILI (test code = 4861290934) 0.7 mg/dL 0.1-1.1 CALCIUM (test code = 6908785612) 8.8 mg/dL 8.6-10.6 T PROTEIN (test code = 3639964747) 7.5 g/dL 6.3-8.2 ALBUMIN (test code = 0930727419) 4.3 g/dL 3.5-5.0 ALK PHOS (test code = 0791819564) 74 U/L 34-122 ALTv (test code = 1742-6) 25 U/L 5-50 AST(SGOT) (test code = 9214015570) 50 U/L 13-40 H eGFR (test code = 14958-9) 94.9 mL/min/1.73m2 CKD-EPI eGFR (2020). Assuming creatinine has been stable day-to-day for at least three months, the eGFR indicates Category G1 (>= 90 mL/min/1.73 m2) Lab Interpretation (test code = 15015-2) Abnormal [facility]2024-08-23 17:59:13* Test Item Value Reference Range Interpretation Comme nts LIPASE (test code = 2773325250) 576 U/L 0-220 H Lab Interpretation (test cod e = 10237-8) [facility]normal [facility]2024-08-23 17:59:13* Test Item Value Reference Range Interpretation Comme nts LIPASE (test code = 0330420921) 576 U/L 0-220 H Lab Interpretation (test cod e = 98939-4) Abnormal [facility] WITH [id number] 17:41:10* Test Item Value Reference Range Interpretation Comme nts WBC (test code = 6690-2) 7.26 4.20-10.70 RBC (test code = 789-8) 4.35 4.26-5.52 HGB (test code = 718-7) 12.8 g/dL 12.2-16.4 HCT (test code = 4544-3) 39.4 % 38.4-49.3 MCV (test code = 787-2) 90.6 fL 81.7-95.6 MCH (test code = 785-6) 29.4 pg 26.1-32.7 MCHC (test code = 786-4) 32.5 g/dL 31.2-35.0 RDW-SD (test code = 04634-5) 47.6 fL 38.5-51.6 RDW-CV (test code = 788-0) 14.2 % 12.1-15.4 PLT (test code = 777-3) 210 150-328 MPV (test code = 98783-9) 9.8 fL 9.8-13.0 NRBC/100 WBC (test code = 5756315508) 0.0 0.0-10.0 NRBC x10^3 (test code = 4730535991) See_Comment [Automated me ssage] The system which generated this result transmitted reference range: 10*3/?L. The reference range was not used to interpret this result as normal/abnormal. GRAN MAT (NEUT) % (test code = 770-8) 66.5 % IMM GRAN % (test code = 1234222058) 0.40 % LYMPH % (test code = 736-9) 21.5 % MONO % (test code = 5905-5) 8.1 % EOS % (test code = 713-8) 2.9 % BASO % (test code = 706-2) 0.6 % GRAN MAT x10^3(ANC) (test code = 9490637417) 4.83 10*3/uL 1.99-6.95 IMM GRAN x10^3 (test code = 7861936858) 0.03 10*3/uL 0.00-0.06 LYMPH x10^3 (test code = 731-0) 1.56 10*3/uL 1.09-3.23 MONO x10^3 (test code = 742-7) 0.59 10*3/uL 0.36-1.02 EOS x10^3 (test code = 711-2) 0.21 10*3/uL 0.06-0.53 BASO x10^3 (test code = 704-7) 0.04 10*3/uL 0.01-0.09 [facility] WITH [id number] 17:41:10* Test Item Value Reference Range Interpretation Comme nts WBC (test code = 6690-2) 7.26 4.20-10.70 RBC (test code = 789-8) 4.35 4.26-5.52 HGB (test code = 718-7) 12.8 g/dL 12.2-16.4 HCT (test code = 4544-3) 39.4 % 38.4-49.3 MCV (test code = 787-2) 90.6 fL 81.7-95.6 MCH (test code = 785-6) 29.4 pg 26.1-32.7 MCHC (test code = 786-4) 32.5 g/dL 31.2-35.0 RDW-SD (test code = 65462-3) 47.6 fL 38.5-51.6 RDW-CV (test code = 788-0) 14.2 % 12.1-15.4 PLT (test code = 777-3) 210 150-328 MPV (test code = 18984-2) 9.8 fL 9.8-13.0 NRBC/100 WBC (test code = 9251322718) 0.0 0.0-10.0 NRBC x10^3 (test code = 7449561182) See_Comment [Automated me ssage] The system which generated this result transmitted reference range: 10*3/?L. The reference range was not used to interpret this result as normal/abnormal. GRAN MAT (NEUT) % (test code = 770-8) 66.5 % IMM GRAN % (test code = 6409999181) 0.40 % LYMPH % (test code = 736-9) 21.5 % MONO % (test code = 5905-5) 8.1 % EOS % (test code = 713-8) 2.9 % BASO % (test code = 706-2) 0.6 % GRAN MAT x10^3(ANC) (test code = 7979168141) 4.83 10*3/uL 1.99-6.95 IMM GRAN x10^3 (test code = 9553235196) 0.03 10*3/uL 0.00-0.06 LYMPH x10^3 (test code = 731-0) 1.56 10*3/uL 1.09-3.23 MONO x10^3 (test code = 742-7) 0.59 10*3/uL 0.36-1.02 EOS x10^3 (test code = 711-2) 0.21 10*3/uL 0.06-0.53 BASO x10^3 (test code = 704-7) 0.04 10*3/uL 0.01-0.09 [facility]REF[facility]- REQUEST/[id number] 19:26:50 Ordered by an unspecified provider.[facility]- REQUEST/[id number] 19:26:50Ordered by an unspecified provider.[facility] [id number] 16:35:02* Test Item Value Reference Range Interpretation Comme nts TROPONIN I (test code = 1598656942) 0.003 ng/mL <=0.034 CHRISTINE (test code = CHRISTINE) Reference (Normal) Range (defined by the 99th percentile reference limit): <= 0.034 ng/mL Note: Cardiac troponin begins to rise 3-4 hours after the onset of ischemia. Repeat in 4-6 hours if the sample was drawn within 3-4 hours of the onset of the symptom and found normal. Diagnosis of myocardial injury is made with acute changes in cTn concentrations with at least one serial sample above the 99th percentile upper reference limit (URL), taken together with the patient's clinical presentation. Biotin has been reported to cause a negative bias, interpret results relative to patient's use of biotin. Lab Interpretation (test code = 28846-0) Normal [facility] [id number] 16:35:02* Test Item Value Reference Range Interpretation Comme nts TROPONIN I (test code = 6674458106) 0.003 ng/mL <=0.034 CHRISTINE (test code = CHRISTINE) Reference (Normal) Range (defined by the 99th percentile reference limit): <= 0.034 ng/mL Note: Cardiac troponin begins to rise 3-4 hours after the onset of ischemia. Repeat in 4-6 hours if the sample was drawn within 3-4 hours of the onset of the symptom and found normal. Diagnosis of myocardial injury is made with acute changes in cTn concentrations with at least one serial sample above the 99th percentile upper reference limit (URL), taken together with the patient's clinical presentation. Biotin has been reported to cause a negative bias, interpret results relative to patient's use of biotin. Lab Interpretation (test code = 93280-7) Normal [facility] LUMBAR SPINE 3 [id number] 19:31:38EXAM: XR LUMBAR SPINE 3 VW HISTORY: Degeneration of lumbar intervertebral disc.Paroxysmal nerve painFaxed order COMPARISON: None.[facility] [id number] 20:20:06* Test Item Value Reference Range Interpretation Comme [facility] POCT Creatinine (test code = 4798242751) 0.8 mg/dL 0.6-1.3 Lab Interpretation (test cod e = 59814-2) Normal [facility] SOFT TISSUE NECK W [id number] 20:02:24EXAM: CT SOFT TISSUE NECK W CONTRAST History/Indication: Chronic pharyngitis Comparison: None Technique: Axial postcontrast images were obtained from supraventricularregion through the mediastinum. Findings: Visualized aspects of the brain, orbits and paranasal sinuseswere without worrisome findings. There were no mucosal or oskar lesions, and specifically no pharyngealfinding of concern. There was no discernible laryngeal abnormality. [facility] (RESULTS)2023-03-26 14:05:23* Test Item Value Reference Range Interpretation Comme nts FVC Actual (test code = 3994) 2.94 L FEV1 Actual (test code = 3993) 2.60 L FEV1/FVC Actual (test code = 3995) 89 % [facility] Smcbutp2875-79-23 13:30:00* Test Item Value Reference Range Interpretation Comme nts POCT Glu (age>30days) (test code = 3342) 101 mg/dL 70-110 [facility] [id number] 13:30:00* Test Item Value Reference Range Interpretation Comme nts POCT Glu (age>30days) (test code = 3342) 101 mg/dL 70-110 [facility] (ID NOW RAPID TESTING)2020-11-28 13:07:35* Test Item Value Reference Range Interpretation Comme nts SARS-CoV-2 Rapid ID NOW (test code = 02858-4) Not Detected Not Detected CHRISTINE (test code = CHRISTINE) ID NOW COVID-19 As say is an isothermal nucleic acid amplification test intended for the qualitative detection of nucleic acid from SARS-CoV-2 viral RNA in nasopharyngeal (FORGE HELPER) specimens. It is used under Emergency Use [...] patient testing if clinically indicated. Lab Interpretation (test code = 73389-7) Normal [facility] [id number] 12:16:00* Test Item Value Reference Range Interpretation Comme nts POCT Glu (age>30days) (test code = 3342) 1226 mg/dL 70-110 A Lab Interpretation (test cod e = 31266-7) Abnormal [facility] [id number] 12:16:00* Test Item Value Reference Range Interpretation Comme nts POCT Glu (age>30days) (test code = 3342) 1226 mg/dL 70-110 A Lab Interpretation (test cod e = 86106-8) Abnormal [facility] WITH [id number] 16:31:33* Test Item Value Reference Range Interpretation Comme nts WBC (test code = 6690-2) See_Comment [Automated STARFACEa ge] The system which generated this result transmitted reference range: 4.20 - 10.70 10*3/?L. The reference range was not used to interpret this result as normal/abnormal. RBC (test code = 789-8) See_Comment [Automated STARFACEa ge] The system which generated this result transmitted reference range: 4.26 - 5.52 10*6/?L. The reference range was not used to interpret this result as normal/abnormal. HGB (test code = 718-7) 12.7 g/dL 12.2-16.4 HCT (test code = 4544-3) 38.9 % 38.4-49.3 MCV (test code = 787-2) 86.8 fL 81.7-95.6 MCH (test code = 785-6) 28.3 pg 26.1-32.7 MCHC (test code = 786-4) 32.6 g/dL 31.2-35.0 RDW-SD (test code = 42239-3) 43.9 fL 38.5-51.6 RDW-CV (test code = 788-0) 13.7 % 12.1-15.4 PLT (test code = 777-3) See_Comment [Automated messa ge] The system which generated this result transmitted reference range: 150 - 328 10*3/?L. The reference range was not used to interpret this result as normal/abnormal. MPV (test code = 23159-4) 9.7 fL 9.8-13.0 L NRBC/100 WBC (test code = 3255907862) See_Comment [Automated [employer] ssage] The system which generated this result transmitted reference range: 0.0 - 10.0 /100 WBCs. The reference range was not used to interpret this result as normal/abnormal. NRBC x10^3 (test code = 9453530498) <0.01 See_Comment [Automated messa ge] The system which generated this result transmitted reference range: 10*3/?L. The reference range was not used to interpret this result as normal/abnormal. GRAN MAT (NEUT) % (test code = 770-8) 66.1 % IMM GRAN % (test code = 4005724148) 0.50 % LYMPH % (test code = 736-9) 21.0 % MONO % (test code = 5905-5) 8.9 % EOS % (test code = 713-8) 3.0 % BASO % (test code = 706-2) 0.5 % GRAN MAT x10^3(ANC) (test code = 5719806948) 4.99 10*3/uL 1.99-6.95 IMM GRAN x10^3 (test code = 1131673820) 0.04 10*3/uL 0.00-0.06 LYMPH x10^3 (test code = 731-0) 1.59 10*3/uL 1.09-3.23 MONO x10^3 (test code = 742-7) 0.67 10*3/uL 0.36-1.02 EOS x10^3 (test code = 711-2) 0.23 10*3/uL 0.06-0.53 BASO x10^3 (test code = 704-7) 0.04 10*3/uL 0.01-0.09 Lab Interpretation (test code = 90659-6) Abnormal [facility]REP (MOLECULAR)2019-08-02 13:46:00* Test Item Value Reference Range Interpretation Comme nts POCT GP A STREP (test code = 41472-6) Negative Negative - Negative Lab Interpretation (test cod e = 56867-6) Normal [facility] HoustonExtremity Venous Uni LtdExtremity Venous Uni LtdMRI Knee Right Wo ContMRI Knee Right Wo Cont Notes Date/Time Note Provider Source 2024-12-20 14:45:04 Refill requested for Plavix [facility] 08/05/24 "-Discussed with the patient that clopidogrel can be discontinued." Medication was d/c'd by Dr. Ann at [facility]. [facility] for patient advising him to return call. Will need to speak with patient and confirm with Dr. Ann before refills can be sent. Bren Long RN [facility] 2024-12-20 12:23:49 Copied from [facility] #[id number]. Topic: Clinical - Order >> Dec 20, 2024 12:21 PM Patient Employment Instructional Associate wrote: Buck Mello (69 year old male) is calling to request refill(s) for clopidogreL (PLAVIX) 75 mg tablet. Please send medication(s) to: [id number] [place], [place] - [address] [facility] & [address] [address] Sheron June [facility] 2024-10-17 09:16:07 Noted. My Chart message sent advising patient to call back once he is discharged to schedule a follow up with Dr. Ann. Bren Long RN [facility] 2024-10-15 15:32:58 Buck Mello is a 69 year old male Got admitted to the hospital for dizzy ness, chest pain, light headedness and was told he would be kept for monitoring Admitted to [facility] Patient just wanted to let Provider know Thank you Jayna Mercado [facility] 2024-09-30 13:43:04 Per BARRY on 08/05/[address] Ann, patient was cleared for Preoperative cardiovascular examination/clearance: - Planned surgery minimally invasive laminectomy/nerve decompression - Buck Mello has a low risk for perioperative cardiac complications. -Clopidogrel can be discontinued from now and indefinitely. Aspirin can be put on hold 5 to 7 days prior to the procedure (prefers to be continued without interruption if surgery can be permissible). -No further need for cardiac optimization prior to surgery. Request received is for a different surgery: right knee partial medial meniscectomy, discussed and cleared by with Dr. Osuna. Completed clearance, BARRY, and EKG faxed to [phone]. Sadaf Baer RN [facility] 2024-09-30 10:21:53 Cardiac clearance forms uploaded into patients chart under media and placed in providers basket for review. Laura Poe [facility]2025-05-08 13:56:47 [facility] 13:56:47* [facility] CenterEaopjjh5771-44-97 13:56:47 [place] [address]-26 12:16:[address] [place] [address] PATIENT NAME: BUCK MELLO JR ADMIT DATE: 08/19/24 ACCOUNT NO: [id number] ROOM NO: AGE: 69 REPORT TYPE: OPERATIVE REPORT SEX: M ADMITTING PHYSICIAN: ATTENDING PHYSICIAN:Alexander Gonzales MD OPERATION DATE: 08/19/2024 PREOPERATIVE DIAGNOSIS: Left-sided L4-L5 facet cyst. POSTOPERATIVE DIAGNOSIS: Left-sided L4-L5 facet cyst. PROCEDURE: Left-sided L4-5 hemilaminotomy and facet cyst excision. SURGEON: Alexander Gonzales M.D. SOLID TIRE FINISHER: Syed Mercer. ANESTHESIOLOGIST: Dr. Sanford. TYPE OF ANESTHESIA: General. ESTIMATED BLOOD LOSS: 50 mL. COMPLICATIONS: None. INDICATIONS: This is a 69-year-old male presenting with severe low back pain and left lower extremity radicular pain, numbness and weakness. On MRI, he was found to have a left-sided L4-L5 facet cyst causing severe lateral recess stenosis. He exhausted nonoperative measures including physical therapy and injections and after discussion of risks and benefits, he gave informed consent to proceed with surgical treatment in the form of L4-L5 facet cyst excision. PROCEDURE IN DETAIL: The patient was brought to the operating room in stable condition and general anesthesia was induced. The patient was positioned prone on a Ki table. Bony prominences well padded. The patient was prepped and draped in the usual sterile fashion. A surgical timeout was performed. We then began by performing a left-sided L4-L5 facet joint medial branch block using a total of 40 mL of 0.5% ropivacaine. Next, a right-sided paracentral incision was made over the L4-L5 disk space. Sequential blunt dilators are navigated to the inferior edge of the left-sided L4 hemilamina and an 18-mm tube was docked. Hemilaminotomy was performed exposing the ligamentum flavum. The ligamentum flavum was then undermined and resected. A medial facetectomy was performed fully decompressing the traversing L5 nerve root. A facet joint cyst was encountered and then fully resected and the traversing nerve root was found to be completely free from compression. The wound was then copiously irrigated and hemostasis was achieved. The wound was then closed in a watertight fashion in layers and then dressed. The patient then emerged from anesthesia in stable PATIENT NAME: BUCK MELLO JR condition and was transferred to the PACU in stable condition. Postoperatively, the patient will be admitted for drain control and pain management and I will see the patient back in my office for followup in 2 weeks after discharge. Dictated By: Alexander Gonzales MD Date Dictated: 08/20/2024 12:16:37 Date Transcribed: 08/20/2024 12:31:29 [facility] Receipt ID: [id number] Authenticated by Alexander Gonzales MD On 08/21/2024 11:16:32 AM at 1116 PATIENT NAME: BUCK MELLO JR 09:42:00 [facility] ([facility]) Brief Op Note REPORT#:[id number] REPORT STATUS: Signed REPORT INITIALIZATION DATE:08/19/24 TIME: 941 PATIENT: BUCK MELLO JR UNIT #: [id number] ROOM/BED: : 56 AGE: 69 SEX: M ATTEND: Alexander Gonzales MD ADM AUTHOR: Alexander Gonzales MD REPT SERVICE DT/TIME: 08/19/24 09 * ALL edits or amendments must be made on the electronic/computer document * Op/Inv Proc Note - Brief Pre-procedure diagnosis: Lumbar L4/5 FAcet Cyst Post-procedure diagnosis: same as pre procedure dx Procedures performed: Left L4/5 Hemilaminotomy, Excision of Facet Cyst Primary Surgeon: Alexander Gonzales Commercial Green Building Designer(s): Syed Spencer Findings: Lumbar Stenosis Complications: none Estimated blood loss in ml's: 100cc Specimens removed/altered: none at 0943 RPT #:[id number] END OF REPORT [id number] 14:58:06 Office note with clearance faxed to [facility] at [phone]. Sadaf Baer RNBluffton HospitalZyhpoa9407-57-70 14:48:11 [facility] asking for clearance statement and last office visit notes be faxed to [phone] for continued clearance. Kim Russo [facility]2025-04-21 15:08:393293-3700 [place] [address] PATIENT NAME: BUCK MELLO JR ADMIT DATE: ACCOUNT NO: [id number] ROOM NO: AGE: 69 REPORT TYPE: ELECTROCARDIOGRAM SEX: M ADMITTING PHYSICIAN: ATTENDING PHYSICIAN:Alexander Gonzales MD Order: [id number] Test Reason : PREOP CLEARANCE H/O HTN Test Date/Time Stamp: ThuAug 15 2024 15:08:40 Blood Pressure : / mmHG Vent. Rate : 048 BPM Atrial Rate : 048 BPM P-R Int : 156 ms QRS Dur : 092 ms QT Int : 460 ms P-R-T Axes : 057 051 059 degrees QTc Int : 410 ms Sinus bradycardia Otherwise normal ECG No previous ECGs available Confirmed by VICK ROLON MD ([id number]) on 08/18/2024 10:39:24 AM Referred By: Alexander Gonzales Confirmed by:VICK ROLON MD PATIENT NAME: BUCK MELLO JR 16:28:10 Last ov faxed to [phone]. With cardiac risk noted on page 7 of 9 Mavis Jansen [facility] CenterRilzev3426-99-44 15:54:14 Buck Mello is a 69 year old male. Jenny gregg/ Dr. Desai Office calling to check the status of cardiac clearance. Please advise. Jenny gregg/ Dr. Desai Office [facility]2025-04-15 10:14:44 Additional testing results requested, EKG and Echo sent to . T [facility]mchih3160-75-68 12:15:53 Clearance approved per , faxed BARRY to [phone]. T [facility] HospitalDzbrsu0156-00-80 15:15:43 I attempted to contact pt to schedule appt, no answer, left vm for pt to call clinic back to schedule. ELI EwingMission HospitalLrxwyn2840-82-87 09:07:26* [facility] CenterRlbsopt7306-41-77 09:07:26 [place] 226155-02-11 09:07:26 [place] 226155-02-11 09:07:26 [place] 226155-02-10 16:43:57 BARRY: 3.25.24. Plan was to follow up in six months. Please schedule next available with Dr. Curtis. Refill sent. STOCKER Cary Mehta RNBluffton HospitalTbnuxd3396-32-77 10:14:18* [facility] CenterKemadto2468-37-86 10:14:18 [place] 226155-01-02 10:14:18Upcoming Encounters Health Maintenance Due Date Last Done Comments CT Colonography 1955 Colonoscopy 1955 Colorectal Cancer Screening 1956 Diabetes: Hemoglobin A1C 1956 FIT-DNA 1956 FIT 1955 FOBT 1955 Medicare Annual Wellness (AWV) 1956 Sigmoidoscopy 1956 Annual Physical 1959 Pneumococcal Vaccine: 65+ Ye ars (1 of 2 - PCV) 1962 Diabetes: Foot Exam 1966 Diabetes: Retinopathy Screening 1966 DTaP/Tdap/Td Vaccines (1 - Tdap) 1975 Diabetes: Urine Protein Screening 1975 Zoster Vaccines (1 of 2) 2006 Respiratory Syncytial Virus (RSV) or >=60 (1 - Risk 60-74 years 1-dose series) 2016 Lipid Panel 12/17/2024 12/18/2023 Influenza Vaccine Completed 01/01/2024 HIB Vaccines Aged Out No longer eligi ble based on patient's age to complete this topic HPV Vaccines Aged Out No longer eligi ble based on patient's age to complete this topic Hepatitis A Vaccines Aged Out No long er eligible based on patient's age to complete this topic Hepatitis B Vaccines Aged Out No long er eligible based on patient's age to complete this topic IPV Vaccines Aged Out No longer eligi ble based on patient's age to complete this topic Meningococcal Vaccine Aged Out No madhu robert eligible based on patient's age to complete this topic Rotavirus Vaccines Aged Out No longer eligible based on patient's age to complete this topic [facility] CenterKawoagj1035-04-26 10:14:18 [facility] CenterJrfvakd5670-69-54 16:12:13* Imaging (Routine) - Pending Review Specialty Diagnoses / Procedures Referred By Will t Referred To Contact Radiology Diagnoses Other amnesia Procedures MRI brain wo IV contrast Shauna Clay MD [address] [address] Phone: tel: fax: Referral ID Status Reason Start Date Expiration Date V isits Requested Visits Authorized [id number] Pending Review 04/05/2024 10/02/2024 1 1 STOCKER [facility] CenterFwdutno4785-14-47 16:12:13 [facility] CenterGrcoyjr2872-56-37 16:12:13Upcoming Encounters Scheduled Orders Name Type Priority Associated Diagnoses Orde r Schedule MRI brain wo IV contrast Imaging Routine Other amnes ia Expected: 04/05/2024, Expires: 04/05/2025 Health Maintenance Due Date Last Done Comments CT Colonography 1955 Colonoscopy 1956 Colorectal Cancer Screening 1956 Diabetes: Hemoglobin A1C 1956 FIT-DNA 1956 FIT 1956 FOBT 1956 Medicare Annual Wellness (AWV) 1956 Sigmoidoscopy 1956 Annual Physical 1959 Pneumococcal Vaccine: 65+ Ye ars (1 of 2 - PCV) 1962 Diabetes: Foot Exam 1966 Diabetes: Retinopathy Screening 1966 DTaP/Tdap/Td Vaccines (1 - Tdap) 1975 Diabetes: Urine Protein Screening 1975 Zoster Vaccines (1 of 2) 2006 Respiratory Syncytial Virus (RSV) or >=60 (1 - Risk 60-74 years 1-dose series) 2016 Lipid Panel 12/17/2024 12/18/2023 Influenza Vaccine Completed 01/01/2024 HIB Vaccines Aged Out No longer eligi ble based on patient's age to complete this topic HPV Vaccines Aged Out No longer eligi ble based on patient's age to complete this topic Hepatitis A Vaccines Aged Out No long er eligible based on patient's age to complete this topic Hepatitis B Vaccines Aged Out No long er eligible based on patient's age to complete this topic IPV Vaccines Aged Out No longer eligi ble based on patient's age to complete this topic Meningococcal Vaccine Aged Out No madhu robert eligible based on patient's age to complete this topic Rotavirus Vaccines Aged Out No longer eligible based on patient's age to complete this topic [facility] CenterVmafskq5404-68-60 16:12:13 Diagnosis Other amnesia [facility] CenterFeojkzd4256-78-65 16:12:13 [place] 226154-12-10 08:30:00 Addended by: SHAUNA CLAY on: 04/05/2024 06:45 PM Modules accepted: Orders STOCKER [facility]Cupqqfo4680-88-02 17:29:55* Neurology (Routine) - Pending Review Specialty Diagnoses / Procedures Referred By Contac t Referred To Contact Diagnoses Radiculopathy, lumbar region Procedures EMG Paris Rojas MD [address] [place] [address] Phone: tel: fax: Referral ID Status Reason Start Date Expiration Date V isits Requested Visits Authorized [id number] Pending Review 03/09/2024 09/05/2024 1 1 STOCKER [facility] CenterJpfkguo0143-59-58 17:29:55* * Consultation (Routine) - Authorized Specialty Diagnoses / Procedures Referred By Conttk t Referred To Contact Neurology Diagnoses Polyneuropathy, unspecified Radiculopathy, lumbar region Procedures GA OFFICE/OUTPATIENT ESTABLISHED LOW MDM 20-29 MIN [facility] OFFICE [address] [place] [address] [facility] [address] [place] [address] Phone: tel: fax: Referral ID Status Reason Start Date Expiration Date V isits Requested Visits Authorized [id number] Authorized 12/29/2023 06/26/2024 1 1 [facility] [id number] 17:29:55 [facility] CenterUgtvknq1935-27-76 17:29:55* Paris Rojas MD - 03/09/2024 3:00 PM [place] STOCKER History of Present Illness HPI Back worse over the last year, radiates into left leg. Has CAD, prior stents. Still on GABApentin and Cymbalta. Went to store and had to use the handicapped scooter to get back to his vehicle as leg went numb. Repeat plain film, check NCV/EMG. Likely will need an MRI as well. Allergies as of 03/09/2024 - Reviewed 03/09/2024 Allergen Reaction Noted Codeine 03/09/2024 Penicillin g 03/09/2024 has a current medication list which includes the following prescription(s): aspirin ec, atorvastatin, donepezil, duloxetine, lisinopril, ranolazine, tamsulosin, mounjaro, baclofen, gabapentin, and glimepiride. Vitals:03/09/24 1520 BP: 121/66 Pulse: 77 Resp: 16 Temp: 36.8 ?C (98.2 ?F) SpO2: 96% Neurological Exam Mental Status Awake and alert. Speech is normal. Cranial NervesCN II: Visual acuity is normal. CN III, IV, : Extraocular movements intact bilaterally. Pupils equal round and reactive to light bilaterally. CN VII: Full and symmetric facial movement. CN IX, X: Palate elevates symmetrically CN XI: Shoulder shrug strength is normal. CN XII: Tongue midline without atrophy or fasciculations. MotorStrength is 5/5 throughout all four extremities. SensoryTemperature abnormality: Decreased distally. Vibration abnormality: Decreased distally. ReflexesDeep tendon reflexes: Suppressed but symmetric. GaitCasual gait is normal including stance, stride, and arm swing. Results for orders placed or performed in visit on 09/16/21 Prostate Specific Antigen Total Collection Time: 09/28/21 8:40 AM Result Value Ref Range PSA 1.61 < OR = 4.00 ng/mL No MRI head results found for the past 12 months Assessment & PlanDiagnoses and all orders for this visit: Radiculopathy, lumbar region - EMG; Future - XR lumbar spine 2-3 views; Future Repeat plain film check NCV/EMG left lower extremity. Time: [address]11-13 17:29:55Upcoming Encounters Scheduled Orders Name Type Priority Associated Diagnoses Orde r Schedule EMG Neurology Routine Radiculopathy, lumbar region Expected: 03/09/2024, Expires: 07/07/2024 XR lumbar spine 2-3 views Imaging Routine Radiculopathy, lumba r region Expected: 03/09/2024, Expires: 03/09/2025 Health Maintenance Due Date Last Done Comments CT Colonography 1956 Colonoscopy 1956 Colorectal Cancer Screening 1956 Diabetes: Hemoglobin A1C 1956 FIT-DNA 1956 FIT 1956 FOBT 1956 Medicare Annual Wellness (AWV) 1956 Sigmoidoscopy 1956 Annual Physical 1959 Pneumococcal Vaccine: 65+ Ye ars (1 of 2 - PCV) 1962 Diabetes: Foot Exam 1966 Diabetes: Retinopathy Screening 1966 DTaP/Tdap/Td Vaccines (1 - Tdap) 1975 Diabetes: Urine Protein Screening 1975 Zoster Vaccines (1 of 2) 2006 Respiratory Syncytial Virus (RSV) or >=60 (1 - Risk 60-74 years 1-dose series) 2016 Lipid Panel 12/17/2024 12/18/2023 Influenza Vaccine Completed 01/01/2024 HIB Vaccines Aged Out No longer eligi ble based on patient's age to complete this topic HPV Vaccines Aged Out No longer eligi ble based on patient's age to complete this topic Hepatitis A Vaccines Aged Out No long er eligible based on patient's age to complete this topic Hepatitis B Vaccines Aged Out No long er eligible based on patient's age to complete this topic IPV Vaccines Aged Out No longer eligi ble based on patient's age to complete this topic Meningococcal Vaccine Aged Out No madhu robert eligible based on patient's age to complete this topic Rotavirus Vaccines Aged Out No longer eligible based on patient's age to complete this topic [facility] CenterFxsxsxs8254-30-42 17:29:55 Diagnosis Radiculopathy, lumbar region - Primary Thoracic or lumbosacral neuritis or radiculitis, unspecified [facility] HospitalRgbfquv7859-88-11 17:29:55 [facility] CenterEjphlmr2483-36-50 15:32:42 Acknowledged. Marylin Randolph RNBluffton HospitalOtovcv7786-00-17 14:06:01 [employer], Medication Therapy Management, form on onbase Miguelina OwensBluffton HospitalCgryum0245-95-31 09:30:00 Addended by: CICI WU MA on: 01/01/2024 10:47 AM Modules accepted: Orders [facility] HospitalGegapz8685-02-23 10:29:08 TRANSITIONAL CARE MANAGEMENT ASSESSMENT 12/22/2023 Buck Mello [id number] Buck Mello is a 68 year old /White male was admitted on 12/18/[address] He was discharged on 12/21/23 with discharge disposition of HR- Routine Discharge. Admitting Physician: Leonora Jameson Discharge Diagnosis: Anginal chest pain No linked episodes TCM Ksy-ajak-me-face outreach documentation: Discharge Assessment Chart Assessed: 12/22/23 TCM Outreach Completed: 12/22/23 Do you have a few minutes to speak with me about how you are doing at home?: Yes (Pt reports doing "Okay".) Discharge Instructions Do you understand your at-home instructions?: Yes Medications Have you filled your prescriptions and do you have them in your home? : See comments (awaiting for scripts to be ready.) Do you know how to take your medications?: Yes Supplies Did you receive applicable home medical supplies/equipment?: N/A Follow Up Appointment Has a follow up appointment been scheduled?: No (Pt will reach out to cardio clinic and schedule sooner appt.) May I assist with scheduling this appointment?: Patient has outside PCP Do you have any questions about your follow up appointments?: No Are you able to get to your appointment? Who will be taking you?: Yes Home Health Assistance Has the home health nurse contacted you since you've been home?: N/A Survey - Recognition Is there anything you would like to share about your recent hospitalization, or anyone you would like to recognize?: No Do you have any suggestions for improvement?: No Do you have any other questions or concerns at this time?: No Future Appointments: Future Appointments Provider Department Dept Phone 03/18/2024 10:30 AM Levi Ann MD [facility] Cardiology, [place] [phone] Marisa Kennedy [facility] CenterBjftwm4421-82-72 11:15:00 Pt was transferred back to unit J10 in stable condition by transport personnel Erika Crisostomo [facility] CenterLpdrtx6539-79-36 10:48:25 Report called to Radha MAGANA and patient has been put into transport. Roseanna Patrick [facility] CenterRzpvgp9234-63-95 10:13:24 Left Heart Cath/Coronary Angiography Buck Mello Date of Service: 12/21/2023 10:13 AM Attending Faculty: Raj Samaniego MD Fellow: Kendall Uriostegui MD Referring Physician: Charlotte Stovall MD Procedures Performed: Coronary angiography and Left heart catheterization Indication/Diagnosis: ACS ([place]/NSTEMI) Consent: Risks, benefits, alternatives and complications of the procedure discussed with the patient, who understood and agreed to proceed. Aseptic technique: Chlorprep Local Anesthesia: 1% lidocaine without epinephrine Sedation: Moderate Access site: right femoral artery Closure Method: Manual Pressure Sterile dressing: yes Complications: none Procedures: After patient identification/verification, the patient was thereafter transferred to the wastewater analyst lab analyst table. The access site was prepped and draped in usual sterile fashion. After administering sedation, time out was done. Under ultrasound guidance, using modified Seldinger technique, the right femoral artery was accessed using a micropuncture kit. The access was upgraded to a 5 Fr sheath. A 5 Fr JL 4.0 catheter was then used to cannulate the LM. Selective coronary angiography was done using several views. A 5 Fr JR 4.0 was used to cross the AV with the J wire and the catheter was advanced into the LV where selective LVEDP was measured. The catheter was then used to cannulate the RCA and selective coronary angiography was done using multiple views. The attending physician was present throughout the procedure and provided the highest level of supervision. Findings: Coronary dominance: left Left main: Normal LAD: technically mid but functionally proximal LAD stent with vessel extending to [place] with wrap around. There is a "candy wrapper" appearence at the distal end of the LAD stent with about 50% stenosis after which the LAD tapers off with mild diffuse disease LCX: OM1: Patent proximal stent RCA: Non dominant LVEDP: 10 mmHg Grafts: Post-Procedure Sedation Addendum Immediately prior to start of sedation, the patient was evaluated and there was no change from the pre-procedure evaluation. I was present and directed medical care. The patient underwent moderate sedation for the procedure. The medications administered were recorded in the MAR; oxygenation, ventilation and circulation were monitored continuously and were recorded in the EMR. I evaluated the patient after the procedure. The patient was evaluated immediately as recovering from sedation. Complications: None Impression: 50% stenosis at distal edge of LAD stent Patent OM1 stent Images reviewed by Dr Sanchez who recommended optimizing medical therapy and clinic follow up. Plan: Optimize medical therapy with focus on antianginals Follow up with DR Sanchez in clinic to reassess symptoms/need for revascularization Findings and plan were discussed with patient in wastewater analyst lab analyst by me and Dr Daniel Samaniego MD 12/21/2023 10:13 AM IM-ADVANCED HEART FAILURE & TRANSPLANT CARDIOLOGY STAFFBluffton HospitalGifdnb9459-60-23 08:06:52 Noted, much appreciated. Mr. Buck Mello is getting a left heart cath today. [facility] HospitalDgnhqa4536-65-43 23:22:45 Problem: Discharge Planning Goal: Adequate for discharge Outcome: Progressing as expected Problem: Falls, Risk of Goal: Absence of falls Outcome: Progressing as expected Problem: Pain Goal: Control of pain at or below patient's documented comfort goal Outcome: Progressing as expected Problem: Cardiac Output - Decreased Goal: Absence of signs and symptoms of decreased cardiac output Outcome: Progressing as expected Problem: Glucose control Goal: Glucose level within specified parameters Outcome: Progressing as expected Problem: Discharge Planning Goal: Adequate for discharge 12/20/20232321 by Steffany Mix RN Outcome: Progressing as expected 12/20/20232321 by Steffany Mix RN Outcome: Progressing as expected Problem: Falls, Risk of Goal: Absence of falls 12/20/20232321 by Steffany Mix RN Outcome: Progressing as expected 12/20/20232321 by Steffany Mix RN Outcome: Progressing as expected Problem: Pain Goal: Control of pain at or below patient's documented comfort goal 12/20/20232321 by Steffany Mix RN Outcome: Progressing as expected 12/20/20232321 by Steffany Mix RN Outcome: Progressing as expected Problem: Cardiac Output - Decreased Goal: Absence of signs and symptoms of decreased cardiac output 12/20/20232321 by Steffany Mix RN Outcome: Progressing as expected 12/20/20232321 by Steffany Mix RN Outcome: Progressing as expected Problem: Glucose control Goal: Glucose level within specified parameters 12/20/20232321 by Steffany Mix RN Outcome: Progressing as expected 12/20/20232321 by Steffany Mix RN Outcome: Progressing as expected Steffany Mix [facility] - [id number] 09:37:27 Problem: Discharge Planning Goal: Adequate for discharge Outcome: Progressing as expected Problem: Falls, Risk of Goal: Absence of falls Outcome: Progressing as expected Problem: Pain Goal: Control of pain at or below patient's documented comfort goal Outcome: Progressing as expected Problem: Cardiac Output - Decreased Goal: Absence of signs and symptoms of decreased cardiac output Outcome: Progressing as expected Problem: Glucose control Goal: Glucose level within specified parameters Outcome: Progressing as expected Mavis Daugherty RNJoseph Ville [id number] 01:15:30 Problem: Discharge Planning Goal: Adequate for discharge Outcome: Progressing as expected Problem: Falls, Risk of Goal: Absence of falls Outcome: Progressing as expected Problem: Pain Goal: Control of pain at or below patient's documented comfort goal Outcome: Progressing as expected Problem: Cardiac Output - Decreased Goal: Absence of signs and symptoms of decreased cardiac output Outcome: Progressing as expected Problem: Glucose control Goal: Glucose level within specified parameters Outcome: Progressing as expected [place] [id number] 00:29:14 Problem: Discharge Planning Goal: Adequate for discharge Outcome: Progressing as expected Problem: Falls, Risk of Goal: Absence of falls Outcome: Progressing as expected Problem: Pain Goal: Control of pain at or below patient's documented comfort goal Outcome: Progressing as expected Problem: Cardiac Output - Decreased Goal: Absence of signs and symptoms of decreased cardiac output Outcome: Progressing as expected Problem: Glucose control Goal: Glucose level within specified parameters Outcome: Progressing as expected [place] [id number] 14:27:35 Patient transferred to [facility] for diagnosis of Chest pain and unstable angina. Patient agrees to transfer, discussed plan of care with patient and family. Patient is awake, A&Ox4, RR even and unlabored on RA. Color appropriate for race. PIV intact x1. No adverse reaction to medications administered while in ED. Belongings with patient to unit. Odette Millan [facility] CenterQqlbxp4586-66-73 14:24:44 Nurse Report Report given to Chris MAGANA at [facility]. Chief complaint, assessment findings, infusion verify and orders reviewed. Odette Millan RN [place] [id number] 13:19:28 Images from the original note were not included. Patient shows to be currently admitted to ED. Will route to provider for notification. Teri Hess [place] [id number] 12:15:05 Pt arrived via private car with c/o chest pain that started yesterday. Reports he has 3 stents and 1 is "65% clotted". He reports that the pain is "a pressure way inside". Brigette Carranza [facility] CenterVlzjju3153-30-86 12:08:00 EMERGENCY DEPARTMENT ENCOUNTER [facility] Patient Name: Buck Mello Date of : 1955 68 year old Exam Room:PA4/[facility] Primary Care Physician: Nickolas Barrow [facility]- [facility] Patient Escorted by: Self [9] Mode of Arrival: Personal means [1] EMS Treatment Prior to ED Arrival: WAREHOUSING TECHNICIAN treatment: None ED Events Date/Time Event User Comments 12/18/237 Medical Screening Begins CHARLOTTE STOVALL MD -- 12/18/237 First Provider Evaluation CHARLOTTE STOVALL MD -- Chief Complaint Chief Complaint Patient presents with Chest Pain ED Triage Notes Brigette Carranza RN 12/18/2023 12:17 Pt arrived via private car with c/o chest pain that started yesterday. Reports he has 3 stents and 1 is "65% clotted". He reports that the pain is "a pressure way inside". HPI History provided by: Patient Chest Pain Pain location: Substernal area and L chest Pain quality: pressure Pain radiates to: Neck and L arm Pain severity: Moderate Onset quality: Gradual Duration: 2 days Chronicity: New Relieved by: Nothing Worsened by: Nothing Associated symptoms: no abdominal pain, no cough, no dizziness, no fatigue, no fever, no headache, no nausea, no palpitations, no shortness of breath and no vomiting Past Medical History / Immunizations No past medical history on file. Tetanus received in last 5 years: No Past Surgical History Past Surgical History: Procedure Laterality Date PHACOEMULSIFICATION OF CATARACT WITH INTRAOCULAR LENS IMPLANT Right 11/14/2020 Surgeon: Tre Meza MD; Location: [facility] OR [facility] PHACOEMULSIFICATION OF CATARACT WITH INTRAOCULAR LENS IMPLANT Left 11/28/2020 Surgeon: Tre Meza MD; Location: [facility] Allergies Allergies Allergen Reactions Codeine Other - See comments Pcn [Penicillins] Other - See comments Social History Tobacco Use Never smoked or used smokeless tobacco. Alcohol Use Yes. Drug Use Never. Review of Systems Review of Systems Constitutional: Negative. Negative for chills, fatigue, fever and unexpected weight change. HENT: Negative. Eyes: Negative. Negative for discharge and itching. Respiratory: Positive for chest tightness. Negative for cough, shortness of breath and wheezing. Cardiovascular: Positive for chest pain. Negative for palpitations. Gastrointestinal: Negative. Negative for abdominal distention, abdominal pain, nausea and vomiting. Genitourinary: Negative. Negative for dysuria, urgency, frequency and flank pain. Musculoskeletal: Negative. Skin: Negative. Negative for color change, pallor and wound. Neurological: Negative. Negative for dizziness, syncope, light-headedness and headaches. Psychiatric/Behavioral: Negative. Negative for agitation and behavioral problems. All other systems reviewed and are negative. Endocrine: Endocrine negative Physical Exam ED Triage Vitals [12/18/23 1215] Weight 95.3 kg (210 lb) Actual or estimated Estimated by patient/family report Height 1.676 m (5' 6") BP 111/77 Pulse 75 Resp 16 Temp 36.7 ?C (98.1 ?F) Temp source Oral SpO2 100 % Measured on Room air Physical Exam Vitals reviewed. Constitutional: Appearance: He is well-developed. HENT: Head: Normocephalic and atraumatic. Nose: Nose normal. Eyes: Conjunctiva/sclera: Conjunctivae normal. Neck: Trachea: No tracheal deviation. Cardiovascular: Rate and Rhythm: Normal rate and regular rhythm. Heart sounds: Normal heart sounds. No murmur heard. No friction rub. Pulmonary: Effort: Pulmonary effort is normal. No respiratory distress. Breath sounds: Normal breath sounds. No stridor. No wheezing or rales. Abdominal: General: Bowel sounds are normal. There is no distension. Palpations: Abdomen is soft. Tenderness: There is no abdominal tenderness. There is no guarding or rebound. Musculoskeletal: General: Normal range of motion. Cervical back: Normal range of motion and neck supple. Skin: General: Skin is warm and dry. Neurological: Mental Status: He is alert and oriented to person, place, and time. Cranial Nerves: No cranial nerve deficit. Sensory: No sensory deficit. Psychiatric: Behavior: Behavior normal. Labs Lab Results COMP. METABOLIC PANEL (45426) - Abnormal Result Value Ref Range NA 136 135 - 145 mmol/L K 4.2 3.5 - 5.0 mmol/L CL 101 98 - 108 mmol/L CO2 TOTAL 28 23 - 31 mmol/L AGAP 7 2 - 16 BUN 12 7 - 23 mg/dL GLUCOSE 173 (*) 70 - 110 mg/dL CREATININE 0.86 0.60 - 1.25 mg/dL TOTAL BILI 0.7 0.1 - 1.1 mg/dL CALCIUM 8.8 8.6 - 10.6 mg/dL T PROTEIN 7.5 6.3 - 8.2 g/dL ALBUMIN 4.3 3.5 - 5.0 g/dL ALK PHOS 74 34 - 122 U/L ALTv 25 5 - 50 U/L AST(SGOT) 50 (*) 13 - 40 U/L eGFR 94.9 mL/min/1.73m2 LIPASE - Abnormal LIPASE 576 (*) 0 - 220 U/L TROPONIN I - Normal TROPONIN I 0.003 <=0.034 ng/mL N-TERMINAL PRO-BNP - Normal NT-proBNP 66 <=125 pg/mL CBC WITH DIFF WBC 7.26 4.20 - 10.70 10*3/?L RBC 4.35 4.26 - 5.52 10*6/?L HGB 12.8 12.2 - 16.4 g/dL HCT 39.4 38.4 - 49.3 % MCV 90.6 81.7 - 95.6 fL MCH 29.4 26.1 - 32.7 pg MCHC 32.5 31.2 - 35.0 g/dL RDW-SD 47.6 38.5 - 51.6 fL RDW-CV 14.2 12.1 - 15.4 % PLT 210 150 - 328 10*3/?L MPV 9.8 9.8 - 13.0 fL NRBC/100 WBC 0.0 0.0 - 10.0 /100 WBCs NRBC x103<0.01 10*3/?L GRAN MAT (NEUT) % 66.5 % IMM GRAN % 0.40 % LYMPH % 21.5 % MONO % 8.1 % EOS % 2.9 % BASO % 0.6 % GRAN MAT x103(ANC) 4.83 1.99 - 6.95 10*3/uL IMM GRAN x1030.03 0.00 - 0.06 10*3/uL LYMPH x1031.56 1.09 - 3.23 10*3/uL MONO x1030.59 0.36 - 1.02 10*3/uL EOS x1030.21 0.06 - 0.53 10*3/uL BASO x1030.04 0.01 - 0.09 10*3/uL Imaging XR CHEST 1 VW Final Result ORDERING PHYSICIAN: CHARLOTTE STOVALL. HISTORY: chest pain TECHNIQUE: AP COMPARISON: None. FINDINGS: Lungs: No focal consolidation is seen. Pleura: No effusion or pleural disease is seen. No pneumothorax. Mediastinum/Alicia: No masses or adenopathy. Heart: The heart is not enlarged. Other: No acute osseous abnormality is seen. IMPRESSION No acute process. End of Report Orders and Treatments Orders Placed This Encounter Procedures XR CHEST 1 VW CBC WITH DIFF COMP. METABOLIC PANEL (31835) TROPONIN I N-TERMINAL PRO-BNP LIPASE POCT GLUCOSE (AUTOMATED) Troponin I Lipid Panel (20532)(Total Cholesterol, Triglycerides, HDL) Prothrombin Time / INR Magnesium Cbc without Diff Basic Metabolic Panel (NA, K, CL, CO2, GLUCOSE, BUN, CREATININE, CA) POCT GLUCOSE (AUTOMATED) POCT Glucose (Age >30 Days) POCT GLUCOSE (AUTOMATED) Orders Placed This Encounter Medications ondansetron (ZOFRAN (PF)) injection 4 mg nitroglycerin (NITROSTAT) sublingual tablet 0.4 mg NaCl 0.9% (NS) bolus infusion 500 mL aspirin tablet 325 mg nitroglycerin (NITROSTAT) sublingual tablet 0.4 mg nitroglycerin (NITROSTAT) sublingual tablet 0.4 mg amLODIPine (NORVASC) tablet 10 mg aspirin chewable tablet 81 mg atorvastatin (LIPITOR) tablet 40 mg albuterol (VENTOLIN) inhaler 2 Puff baclofen (LIORESAL) tablet 10 mg clopidogreL (PLAVIX) 75 mg tablet 75 mg DULoxetine (CYMBALTA) capsule 60 mg famotidine (PEPCID) tablet 40 mg fluticasone propionate 50 mcg/actuation nasal spray 1 [place] gabapentin (NEURONTIN) capsule 400 mg glimepiride (AMARYL) tablet 4 mg isosorbide mononitrate (IMDUR) 24 hr tablet 60 mg cetirizine (ALLERGY RELIEF (CETIRIZINE)) tablet 5 mg lisinopriL (PRINIVIL,ZESTRIL) tablet 10 mg metoprolol succinate XL (TOPROL XL) tablet 25 mg montelukast (SINGULAIR) tablet 10 mg pantoprazole (PROTONIX) EC tablet 40 mg tamsulosin (FLOMAX) capsule 0.4 mg heparin (porcine) injection 5,000 Units acetaminophen (TYLENOL) tablet 650 mg dextrose 50 % in water (D50W) injection 25 mL glucagon HCL injection 1 mg Sliding Scale Insulin - Lispro (HumaLOG) HYDROcodone-acetaminophen (NORCO 5) tablet 1 tablet Procedures EKG Time 1227 Rate 74 Normal Sinus Williamson normal Intervals normal No acute ischemia MDM Patient was evaluated for an emergency medical condition related to Chest Pain Diagnoses considered but not limited to: ACS Thoracic aneurysm PE Pancreatitis Labs:were ordered, and resulted, any relevant abnormalities were considered. Imaging:This is a teaching institution and preliminary studies are read by physicians in training. A final read by a radiologist will be confirmatory of preliminary studies or may include addenda. A reasonable attempt will be made to contact the patient or family to communicate findings if necessary. ED Course as of 12/18/232258Dec 18, 2023 [address] Priest [DN] 1321 Transfer initiated [facility] [DN] ED Course User Index [DN] Charlotte Stovall MD Diagnosis/Impression as of 12/18/23 2259 Chest pain, unspecified type Unstable angina Medical Decision Making Problems Addressed: Chest pain, unspecified type: acute illness or injury Unstable angina: acute illness or injury Amount and/or Complexity of Data Reviewed Labs: ordered. Decision-making details documented in ED Course. Radiology: ordered and independent interpretation performed. Decision-making details documented in ED Course. ECG/medicine tests: ordered and independent interpretation performed. Decision-making details documented in ED Course. Risk OTC drugs. Prescription drug management. Decision regarding hospitalization. Pulse Oximetry: is not hypoxic. Interpreted. Reassessment:stable Communication with medical device sales consultant: Cardiology Dr. Priest Limitations to patient care and compliance: none. Plan & Summary: The patient is a 64-year-old gentleman with a history of known coronary disease. The patient has three cardiac stents. 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 He presents with substernal chest pain. He denies any nausea or vomiting however he admits to diaphoresis. EKG does not demonstrate any STEMI or ectopy. Hematological studies are within acceptable range along with chemistry studies. Troponin is negative. However, his chest pain went from a 6 to a 3 with sublingual nitro and aspirin. I believe the patient may require cardiac catheterization to reassess his stents. The patient was transferred to [place] for further workup and possible intervention. Buck Mello is a 68 year old male presenting for complaint(s) listed within the note. . Transferred for higher level of care. History, physical exam findings, results of visit, diagnosis, medication regimens and plan of future care have been considered. Additional MDM may be found in the ED course. Vital signs were rechecked before final disposition and determined to be stable. Disposition & Follow Up ED Disposition ED Disposition Transfer - [facility] to IP/Obs Condition -- Comment -- Current Discharge Medication List STOP taking these medications azelastine 137 mcg (0.1 %) nasal spray Comments: Reason for Stopping: fluticasone propionate 50 mcg/actuation nasal spray Comments: Reason for Stopping: clopidogreL (PLAVIX) 75 mg tablet Comments: Reason for Stopping: levocetirizine 5 mg tablet Comments: Reason for Stopping: famotidine 40 mg tablet Comments: Reason for Stopping: MOUNJARO 5 mg/0.5 mL subcutaneous injection Comments: Reason for Stopping: mzrcsfhq-exyjpcemf-bmfrsmhkarbuzs 3.5-10,000-1 mg/mL-unit/mL-% otic susp Comments: Reason for Stopping: pantoprazole 40 mg EC tablet Comments: Reason for Stopping: albuterol 90 mcg/actuation inhaler Comments: Reason for Stopping: aspirin 81 mg Cap Comments: Reason for Stopping: atorvastatin 40 mg tablet Comments: Reason for Stopping: baclofen 10 mg tablet Comments: Reason for Stopping: smjjczqfbu-fqlzmffv-eabjjvdczp (BREZTRI AEROSPHERE) 160-9-4.8 mcg/actuation HFAA Comments: Reason for Stopping: busPIRone 10 mg tablet Comments: Reason for Stopping: CYMBALTA 60 mg capsule Comments: Reason for Stopping: gabapentin 400 mg capsule Comments: Reason for Stopping: isosorbide mononitrate 60 mg 24 hr tablet Comments: Reason for Stopping: metoprolol succinate XL 25 mg 24 hr tablet Comments: Reason for Stopping: montelukast 10 mg tablet Comments: Reason for Stopping: tamsulosin (FLOMAX) 0.4 mg 24 hr capsule Comments: Reason for Stopping: amLODIPine 10 mg tablet Comments: Reason for Stopping: glimepiride 2 mg tablet Comments: Reason for Stopping: lisinopril 40 mg tablet Comments: Reason for Stopping: metFORMIN 500 mg tablet Comments: Reason for Stopping: Future Appointments In 3 months Levi Ann MD [facility] Health Cardiology, [facility] Charlotte Stovall Jr., MD Clinical Grid Molder [facility] Emergency Department [email or web address] is used frequently and may produce errors. Promptly contact for obvious discrepancies. Charlotte Stovall MD 12/18/23 2300 [facility] - [id number] 11:53:00 Regarding: chest pains/left arm feels heavy/leg and neck throbbing x 1 day ----- Message from Fifi Nye sent at 12/18/2023 11:49 AM CDT ----- Buck Mello is a 68 year old male - pt experienced left arm and chest pains pt stated they both felt heavy x yesterday evening -dizzy x yesterday evening -Leg and neck throbbing x yesterday evening -pt stated last night all symptoms went away except the heaviness on chest -pt starting to feel symptoms again and asking to speak with nurses on what to do Joy Glass [facility] [id number] 11:53:00 Reason for Disposition Patient already left for the hospital/clinic. Buck Mello is a 68 year old male who states that he is on his way to [facility] ED and is almost there. Advised patient to be careful and for him to proceed to the ED. Protocols used: No Contact or Duplicate Contact Kyvc-UTXUY-CY T [facility] [id number] 11:41:37 Buck Mello is a 68 year old male Pt calling stating yesterday evening experiencing a heavy feeling chest and left arm. Pt stated chest pain was strong and lasted all night and into today. Pt stated feeling dizzy and their neck and legs were throbbing. Out of nowhere all symptoms stopped and pt felt okay but throughout the night they felt the chest pains. This morning symptoms came back pt called I tried getting access center nurses on the line to help assess but pt was on route to clinic already and decided to end the call. Please advise at [phone] (home) Fifi NyeBluffton [id number] 16:14:41 Images from the original note were not included. Patient was calling for stress test results. States he already spoke with someone. Bren Long RNBluffton [id number] 11:20:53 Buck Mello is a 68 year old male patient calling for cardiac results. Please call [phone] Megan PalafoxFlower [id number] 08:00:00 Summary: Lexiscan stress test Buck Mello is a 68 year old male received to Nuclear Medicine for Stress Test. Pt is AAOx4 and is in NAD. Pt identified using Name & . Pt endorses being NPO since 10/26/23. Indication for this Stress Test is chest pain. Last caffeine intake > 12 hours NM Tech monitoring is Harjit [place] Supervising physician Enrrique obtained consent at 10/27/23 Time out completed 0855 Lexiscan 0.4mg/5mL injected at 0855, followed by 5mL NS flush. Pre Stress Test vitals are: BP 124/75 HR 65 Resp 20 O2 sat 99 Injection vitals are: BP 129/73 HR 88 Resp 20 O2 sat 99 Recovery vitals are: BP 134/78 HR 81 Resp 20 O2 sat 99 T Margaret Roman [facility] [id number] 16:34:27 Per BARRY note, "1. Coronary artery disease involving crow coronary artery of crow heart 2. S/P coronary artery stent placement - PCI to mid LAD in 10/2021 ([facility] cardiology) with 3.5X32 mm ED. - Patent OM1 stent (based on latest [facility] in 10/2021). - Chest pain today is likely non cardiac (localized tenderness) but I'll obtain troponin to rule out ACS (EKG is within normal today). -Continue with DAPT, atorvastatin 40, Imdur 120 and metoprolol succinate 25 mg daily." T Bren Long [facility] - [id number] 09:24:[address] Ann to refill his Clopidrogrel 75 Mg. 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 T Kim Russo [facility] CentertrinaBluffton [id number] 10:39:08 Images from the original note were not included. Patient notified: Levi Ann MD P Cardiology Nurse Troponin is normal. I recommend obtaining a nuclear stress test. Order placed. Patient verbal understanding. Notified Cardio PSS to assist with scheduling test per Dr Ann. Rachel Jacobs MABluffton [id number] 11:00:00 Images from the original note were not included. Venipuncture collection performed by clean technique on the right anticubitus. Total of 1 attempts were made. Slight pressure and a bandage/dressing were applied to the site(s). The patient experienced no complications. The following specimens were processed according to instructions and sent to [facility] laboratories per lab order on 09/11/2023: LT BLUE SST 1 LT GREEN RED LAV PPT DK GREEN (LiHep) DK GREEN (SodH) REIS DK BLUE (K2) DK BLUE (S) ACD Blood Culture NIPT/NTD T [facility] [id number] 09:30:00 Addended by: LEVI GAINES on: 09/11/2023 05:09 PM Modules accepted: Orders T [facility]
[2025-01-24] MEDS ORDERED: ONDANSETRON 4 MG/2 ML VIAL ONE (11:29)
[2025-01-24] MEDS ORDERED: NA CHLORIDE 0.9% 500 ML ONE (11:30)
[2025-01-24] MEDS ORDERED: PROMETHAZINE INJ 25 MG/ML AMP ONE (11:30)
[2025-01-24 11:39] LABS: PT Prothrombin Time 12.7 SECONDS (10-13.0); Protime INR 1.13
--- NOTE | 2025-01-24 11:40 | RAD REPORT ---
Procedure: Chest Single View HISTORY: Chest pain COMPARISON: none FINDINGS: The lungs appear clear of acute infiltrate. No significant pleural effusion noted. The heart is mildly enlarged. . IMPRESSION: No acute abnormality is displayed.
[2025-01-24 11:41] LABS: Absolute Lymphocytes (CBC) 1.6 K/uL (0.7-4.9); Hematocrit 37.2 % (39.6-49.0); Hemoglobin 12.3 g/dL (13.6-17.9); MCH 27.1 pg (27.0-35.0); MCHC 33.0 g/dL (32.0-36.0); MCV 82.0 fL (80-100); MPV 8.1 fL (7.6-11.3); Nucleated RBC Absolute Count 0.0 (0-0); Nucleated Red Blood Cells % 0.0 % (0-0); RBC Red Blood Cell Count 4.53 M/uL (4.33-5.43); White Blood Count 9.80 thou/uL (4.3-10.9)
[2025-01-24 11:53] LABS: ALT/SGPT 26 U/L (16-61); AST/SGOT 14 U/L (15-37); Albumin 3.3 g/dL (3.4-5.0); Albumin/Globulin Ratio 1.0 (1.1-1.8); Alkaline Phosphatase 70 U/L (45-117); Anion Gap 11.2 mEq/L (5.0-15.0); BUN Blood Urea Nitrogen 14 mg/dL (7-18); Globulin 3.4 g/dL (2.3-3.5); Glucose Level 145 mg/dL (74-106); Magnesium 1.8 mg/dL (1.6-2.4); NT PRO-BNP 58 pg/mL (<125); Potassium 4.2 mEq/L (3.5-5.1); Troponin High Sensitivity 3.7 pg/mL (<58.9)
[2025-01-24 12:03] LABS: Bilirubin Indirect, Calculated 0.1 mg/dL (0.2-0.8)
--- NOTE | 2025-01-24 12:40 | RAD REPORT ---
EXAM: CT brain without contrast HISTORY: Dizziness COMPARISON: 2020 TECHNIQUE: Multiple contiguous axial images were obtained and a CT of the brain without contrast.. Sagittal and coronal reconstruction performed. Automated exposure control, adjustment of the mA and/or kV according to patient size, and/or iterative reconstruction. Unless otherwise specified, incidental f indings do not require dedicated imaging follow-up FINDINGS: An intracranial bleed is not seen Ventricles are normal caliber No extra-axial fluid collection noted No significant hypodensity within the brain No fluid within the visualized sinuses or mastoids noted. IMPRESSION: No acute intracranial abnormality noted. If the patient continues to have symptoms to suggest an acute intracranial abnormality then MRI of th e brain would be recommended.
--- NOTE | 2025-01-24 12:45 | RAD REPORT ---
EXAMINATION: CT ABDOMEN AND PELVIS WITH CONTRAST CLINICAL INDICATION: Abdominal pain TECHNIQUE: CT abdomen and pelvis was performed, after the administration of 100 cc Isovue-300.. Sagit angelique and coronal reconstructions were obtained. One or more of the following dose reduction techniques were used: Automated exposure control, adjustment of the mA and kV according to patient si ze, and iterative reconstruction. Unless otherwise specified, incidental findings do not require dedicated imaging follow-up. OR1812. Oral contrast was not given which limits evaluation of bowel and appendix. COMPARISON: .September 2024 FINDINGS: Mild fatty liver. Cholecystectomy. Spleen, adrenals and kidneys unremarkable 7 mm calcified splenic arterial aneurysm Moderate amount stool throughout the colon. No evidence of diverticulitis. Mild thickening wall of proximal sigmoid colon : IMPRESSION: Mild thickening of the wall of the proximal sigmoid colon may be secondary to incomplete distention o r inflammation
--- NOTE | 2025-01-24 13:41 | EDPHYS ---
Physician Documentation [facility] Name: Alec Ortiz Jr Age: 69 yrs Sex: Male : 1955 Arrival Date: 01/24/2025 Time: 11:04 Bed 15 Private MD: ED Physician Cristi Dooley HPI: 01/24 16:15 This 69 yrs old Male presents to ER via EMS with complaints of Dizziness - ms3 N/V, chest pain, abd pain. 16:15 69-year-old male with past medical history of COPD, diabetes, hypertension, melanoma, ms3 neuropathy, osteoarthritis presents to the emergency department for feeling off for 4 days after taking diclofenac. Patient states 1 hour after taking diclofenac he became weak and dizzy and yesterday he developed chest pain that radiated to the left shoulder. Patient states while at rehab today the dizziness and nausea became worse. Patient states he developed chest pain 10 minutes after EMS arrived. On arrival to the emergency department EMS notes patient vomited 1 L of emesis. Patient notes he also developed generalized abdominal pain today.. Historical: - Allergies: 11:24 Codeine; af3 11:24 PENICILLINS; af3 - PMHx: 11:24 COPD; Diabetes - NIDDM; Hypertension; melanoma; neuropathy; osteoarthritis; af3 - PSHx: 11:24 back; Cholecystectomy; Heart Stents; hernia repair; af3 - Immunization history:: Adult Immunizations unknown. - Infectious Disease History:: Denies. - Social history:: Smoking status: unknown. ROS: 16:15 Constitutional: Negative for fever, and chills. ms3 16:15 Respiratory: Negative for shortness of breath, cough, wheezing, and pleuritic chest pain, 16:15 MS/Extremity: Negative for injury and deformity, Skin: Negative for injury, rash, and discoloration, 16:15 Cardiovascular: Positive for chest pain, 16:15 Abdomen/GI: Positive for abdominal pain, vomiting, 16:15 Neuro: Positive for dizziness, Exam: 11:31 ECG was reviewed by the Attending Physician. ms3 16:15 Constitutional: This is a well developed, well nourished patient who is awake, alert, ms3 and in no acute distress. Cardiovascular: Regular rate and rhythm with a normal S1 and S2. No gallops, murmurs, or rubs. Normal PMI, no JVD. No pulse deficits. Respiratory: Lungs have equal breath sounds bilaterally, clear to auscultation and percussion. No rales, rhonchi or wheezes noted. No increased work of breathing, no retractions or nasal flaring. 16:15 Abdomen/GI: Inspection: abdomen appears normal, obese Bowel sounds: normal, Palpation: mild abdominal tenderness, in all quadrants, 16:15 Neuro: Orientation: is normal, to person, place, time \T\ situation. Mentation: is normal, Memory: is normal, Cranial nerves: CN I not tested, CN II- XII are normal as tested, Cerebellar function: normal finger to nose testing, Vital Signs: 11:18 BP 163 / 72; Pulse 65; Resp 16; Temp 97.7; Pulse Ox 98% on R/A; Pain 6/10; af3 11:47 BP 167 / 58; Pulse 59; Resp 13; Pulse Ox 95% on R/A; af3 12:25 BP 132 / 64; Pulse 68; Resp 19; Pulse Ox 96% ; rg5 13:41 BP 107 / 61; Pulse 67; Resp 18; Pulse Ox 99% ; rg5 14:04 BP 112 / 59; Pulse 63; Resp 18; Pulse Ox 98% ; rg5 15:06 BP 127 / 72; Pulse 70; Resp 18; Pulse Ox 100% ; rg5 16:35 BP 139 / 66; Pulse 66; Resp 18; Pulse Ox 100% ; Pain 0/10; rg5 11:18 Pain Scale: Adult af3 16:35 Pain Scale: Adult rg5 NIH Stroke Scale Scores: 15:22 NIHSS Score: 2 rg5 MDM: 11:21 Medical Screening Exam initiated ms3 16:15 Differential diagnosis: cardiac arrhythmia, generalized weakness, hypovolemia, ms3 idiopathic dizziness, near-syncope, vertigo. Data reviewed: vital signs, nurses notes, lab test result(s), EKG, radiologic studies, and as a result, I will admit patient. Consideration of Admission/Observation Patient was admitted/placed on observation. Management of patient was discussed with the following: Hospitalist: Douglas on behalf of Dr. Rose. I considered the following discharge prescriptions or medication management in the emergency department Medications were administered in the Emergency Department. See MAR. Independent interpretation of the following test(s) in the Emergency Department EKG: See my EKG interpretation above CT Scan: My interpretation is CT head without contrast images reviewed by me do not reveal intracranial hemorrhage. Counseling: I had a detailed discussion with the patient and/or guardian regarding the historical points, exam findings, and any diagnostic results supporting the discharge/admit diagnosis, lab results, radiology results, the need for further work-up and treatment in the hospital. ED course: Discussed necessity for admission with patient and he understands and agrees with plan.. 01/24 11:17 Order name: Basic Metabolic Panel; Complete Time: 12:12 ms3 01/24 11:17 Order name: CBC with Diff; Complete Time: 11:57 ms3 01/24 11:17 Order name: LFT's; Complete Time: 12:12 ms3 01/24 11:17 Order name: Magnesium; Complete Time: 12:12 ms3 01/24 11:17 Order name: NT PRO-BNP; Complete Time: 12:12 ms3 01/24 11:17 Order name: PT-INR; Complete Time: 11:57 ms3 01/24 11:17 Order name: Troponin HS; Complete Time: 12:12 ms3 01/24 15:32 Order name: CBC with Automated Diff EDMS 01/24 15:32 Order name: CBC with Automated Diff EDMS 01/24 15:32 Order name: CBC with Automated Diff EDMS 01/24 15:32 Order name: CBC with Automated Diff EDMS 01/24 15:32 Order name: CBC with Automated Diff EDMS 01/24 15:32 Order name: Comprehensive Metabolic Panel EDMS 01/24 15:32 Order name: Comprehensive Metabolic Panel EDMS 01/24 15:32 Order name: Comprehensive Metabolic Panel EDMS 01/24 15:32 Order name: Comprehensive Metabolic Panel EDMS 01/24 15:32 Order name: Comprehensive Metabolic Panel EDMS 01/24 15:32 Order name: T4 Free EDMS 01/24 15:32 Order name: T4 Free EDMS 01/24 15:32 Order name: Thyroid Stimulating Hormone EDMS 01/24 15:32 Order name: Thyroid Stimulating Hormone EDMS 01/24 15:32 Order name: Troponin High Sensitivity EDMS 01/24 15:32 Order name: Troponin High Sensitivity EDMS 01/24 15:32 Order name: Troponin High Sensitivity EDMS 01/24 11:17 Order name: XRAY Chest (1 view); Complete Time: 11:57 ms3 01/24 11:17 Order name: CT Head Brain wo Cont; Complete Time: 12:53 ms3 01/24 11:20 Order name: CT Abd/Pelvis - IV Contrast Only; Complete Time: 12:53 ms3 01/24 11:17 Order name: EKG; Complete Time: 11:18 ms3 01/24 15:36 Order name: Physical Therapy Consult EDMS 01/24 11:17 Order name: Cardiac monitoring; Complete Time: 11:17 ms3 01/24 11:17 Order name: EKG - Nurse/Tech; Complete Time: 11:17 ms3 01/24 11:17 Order name: IV Saline Lock; Complete Time: 11:17 ms3 01/24 11:17 Order name: Labs collected and sent; Complete Time: 11:17 ms3 01/24 11:17 Order name: O2 Per Protocol; Complete Time: 11:17 ms3 01/24 11:17 Order name: O2 Sat Monitoring; Complete Time: 11:17 ms3 EC:31 Rate is 64 beats/min. Rhythm is regular. QRS [place] is Normal. OR interval is normal. QRS ms3 interval is normal. QT interval is normal. Clinical impression: Normal ECG. Interpreted by me. Reviewed by me. Administered Medications: 11:35 Drug: Promethazine IM 12.5 mg IM once Route: IM; Site: right deltoid; af3 13:00 Follow up: Response: No adverse reaction rg5 11:36 Drug: NS 0.9% IV 500 ml IV at bolus once; to be given as a bolus over 30 minutes Route: af3 IV; Rate: bolus; Site: left hand; 12:05 Follow up: IV Status: Completed infusion rg5 12:23 Drug: Ondansetron IVP 4 mg IVP once; over 2 minutes Route: IVP; Site: left hand; rg5 13:30 Follow up: Response: No adverse reaction rg5 17:45 Not Given (patient was admitted already to rm 4200): ativan0.5 mg IVP once; GIVE JUST rg5 PRIOR TO MRI Disposition Summary: 01/24/25 13:41 Hospitalization Ordered Notes: Hospitalization Status: Observation ms3 Provider: Zhang Rose ms3 [facility] ms3 Condition: Stable ms3 Problem: new ms3 Symptoms: are unchanged ms3 Bed/Room Type: Standard ms3 Room Assignment: 420(01/24/25 17:01) [email or web address] Diagnosis - dizziness ms3 - chest pain ms3 - vomiting ms3 Forms: - Medication Reconciliation Form ms3 - SBAR form ms3 - Leadership Thank You Letter ms3 NIH Stroke Scale - NIH Stroke Score Date: 01/24/2025 Time: 15:22 Total Score = 2 10. Dysarthria (speech clarity - read or repeat words) - 0(Normal) 11. Extinction and Inattention (visual/tactile/auditory/spatial/personal) - 0(No abnormality) 1a. Level of Consciousness (LOC) - 0(Alert) 1b. Level of Consciousness (LOC) (Month \T\ Age) - 0(Both) 1c. LOC Commands (Open \T\ Closes Eyes/Electrical Technology Instructor) - 0(Both) 2. Best Gaze (Lateral Gaze Paresis) - 0(Normal) 3. Visual Field Loss - 0(No visual loss) 4. Facial Palsy - 1(Minor Paralysis) 5a. Left Arm: Motor (10-second hold) - 0(No drift) 5b. Right Arm: Motor (10-second hold) - 0(No drift) 6a. Left Leg: Motor (5-second hold - always test supine) - 0(No drift) 6b. Right Leg: Motor (5-second hold - always test supine) - 0(No drift) 7. Limb Ataxia (finger/nose \T\ heel/fisher - test with eyes open) - 0(Absent) 8. Sensory Loss (pinprick arms/legs/face) - 1(Mild to moderate loss) 9. Best Language: Aphasia (description/naming/reading) - 0(No aphasia) Initials: rg5 Signatures: Dispatcher [employer] EDMS Shirley Hector bd Douglas Munroe, AVIONICS ELECTRONICS TECHNICIAN-C AVIONICS ELECTRONICS TECHNICIAN-Cla1 Alec Chappell, RN RN ja1 Cristi Dooley DO DO ms3 Cr Huitron RN RN rg5 Dhara Ferreira RN RN af3 Corrections: (The following items were deleted from the chart) 13:35 13:35 MR STROKE PROTOCOL+MRI.RAD.GURMEET ordered. EDMS EDMS 15:39 13:41 ms3 bd 17:01 15:39 427 bd ja1
--- NOTE | 2025-01-24 13:41 | ER ---
Nurse's Notes [facility] Name: Alec Ortiz Jr Age: 69 yrs Sex: Male : 1955 Arrival Date: 01/24/2025 Time: 11:04 Bed 15 Private MD: Diagnosis: dizziness;chest pain;vomiting Presentation: 01/24 11:18 Chief complaint: EMS states: facial numbness, tingling, weakness, and nausea x4 days, af3 vomiting upon arrival 850ml of fluid. Increasingly worse today after driving to [facility]. Coronavirus screen: At this time, the client does not indicate any symptoms associated with coronavirus-19. Ebola Screen: No symptoms or risks identified at this time. Initial Sepsis Screen: Does the patient meet any 2 criteria? No. Patient's initial sepsis screen is negative. Does the patient have a suspected source of infection? No. Patient's initial sepsis screen is negative. Risk Assessment: Do you want to hurt yourself or someone else? Patient reports no desire to harm self or others. Onset of symptoms was January 22, 2025. 11:18 Method Of Arrival: EMS: [facility] af3 11:18 Acuity: WILLA 2 af3 Triage Assessment: 11:24 General: Appears distressed, uncomfortable, well groomed, well developed, Behavior is af3 cooperative, appropriate for age. Pain: Complains of pain in abdomen Also complains of nausea. Neuro: Level of Consciousness is awake, alert, obeys commands, Oriented to person, place, time, situation, Appropriate for age. Neuro: nystagmus . Cardiovascular: Patient's skin is warm and dry. Rhythm is sinus rhythm. Respiratory: Airway is patent Respiratory effort is even, unlabored, Respiratory pattern is regular, symmetrical. Historical: - Allergies: 11:24 Codeine; af3 11:24 PENICILLINS; af3 - PMHx: 11:24 COPD; Diabetes - NIDDM; Hypertension; melanoma; neuropathy; osteoarthritis; af3 - PSHx: 11:24 back; Cholecystectomy; Heart Stents; hernia repair; af3 - Immunization history:: Adult Immunizations unknown. - Infectious Disease History:: Denies. - Social history:: Smoking status: unknown. Screenin:48 [facility] ED Fall Risk Assessment (Adult) History of falling in the last 3 months, af3 including since admission No falls in past 3 months (0 pts) Confusion or Disorientation No (0 pts) Intoxicated or Sedated No (0 pts) Impaired Gait No (0 pts) Mobility Assist Device Used No (0 pt) Altered Elimination No (0 pt) Score/Fall Risk Level 0 - 2 = Low Risk Oriented to surroundings, Maintained a safe environment, Educated pt \T\ family on fall prevention, incl call for assistance when getting out of bed. Abuse screen: Denies threats or abuse. Denies injuries from another. Nutritional screening: No deficits noted. Tuberculosis screening: No symptoms or risk factors identified. 15:22 VAN Screening: Arm Drift: Patient shows no arm weakness. Aphasia: No aphasia noted. rg5 Assessment: 11:47 General: see triage assessment . af3 12:10 General: Appears uncomfortable, Behavior is calm, cooperative, appropriate for age. rg5 Pain: Complains of pain in chest and abdomen Quality of pain is described as aching. Neuro: Level of Consciousness is awake, alert, obeys commands, Oriented to person, place, time, situation. Cardiovascular: Reports chest pain, Patient's skin is warm and dry. Respiratory: Airway is patent Trachea Respiratory effort is even, unlabored. GI: Reports nausea, vomiting. : No signs and/or symptoms were reported regarding the genitourinary system. EENT: No signs and/or symptoms were reported regarding the EENT system. Derm: Skin is intact, Skin is dry, Skin is normal. Musculoskeletal: Circulation, motion, and sensation intact. Range of motion: intact in all extremities. 13:42 Reassessment: No changes from previously documented assessment. Patient and/or family rg5 updated on plan of care and expected duration. Pain level reassessed. Patient is alert, oriented x 3, equal unlabored respirations, skin warm/dry/pink. 14:35 Reassessment: Patient and/or family updated on plan of care and expected duration. Pain rg5 level reassessed. Patient is alert, oriented x 3, equal unlabored respirations, skin warm/dry/pink. 15:06 Reassessment: Patient and/or family updated on plan of care and expected duration. Pain rg5 level reassessed. Patient is alert, oriented x 3, equal unlabored respirations, skin warm/dry/pink. Patient states symptoms have improved. Vital Signs: 11:18 BP 163 / 72; Pulse 65; Resp 16; Temp 97.7; Pulse Ox 98% on R/A; Pain 6/10; af3 11:47 BP 167 / 58; Pulse 59; Resp 13; Pulse Ox 95% on R/A; af3 12:25 BP 132 / 64; Pulse 68; Resp 19; Pulse Ox 96% ; rg5 13:41 BP 107 / 61; Pulse 67; Resp 18; Pulse Ox 99% ; rg5 14:04 BP 112 / 59; Pulse 63; Resp 18; Pulse Ox 98% ; rg5 15:06 BP 127 / 72; Pulse 70; Resp 18; Pulse Ox 100% ; rg5 16:35 BP 139 / 66; Pulse 66; Resp 18; Pulse Ox 100% ; Pain 0/10; rg5 11:18 Pain Scale: Adult af3 16:35 Pain Scale: Adult rg5 NIH Stroke Scale Scores: 15:22 NIHSS Score: 2 rg5 ED Course: 11:16 Patient arrived in ED. ss 11:16 Cristi Dooley DO is Attending Physician. ms3 11:17 Dhara Ferreira, RN is Primary Nurse. af3 11:17 EKG done, by ED staff, reviewed by Cristi Dooley DO. ap3 11:24 Triage completed. af3 11:25 Initial lab(s) drawn, by me, sent to lab. Maintain EMS IV. Dressing intact. Good blood ap3 return noted. Site clean \T\ dry. Gauge \T\ site: 20g left hand. Flushed with 10 mL NS. 11:37 XRAY Chest (1 view) In Process Unspecified. EDMS 11:48 No provider procedures requiring assistance completed. af3 11:48 Patient has correct armband on for positive identification. Bed in low position. Call af3 light in reach. Provided Education on: call light use . 12:16 CT Head Brain wo Cont In Process Unspecified. EDMS 12:19 CT Abd/Pelvis - IV Contrast Only In Process Unspecified. EDMS 13:40 Zhang Rose is Hospitalizing Provider. ms3 14:03 Patient admitted, IV remains in place. intact, No redness/swelling at site. rg5 Administered Medications: 11:35 Drug: Promethazine IM 12.5 mg IM once Route: IM; Site: right deltoid; af3 13:00 Follow up: Response: No adverse reaction rg5 11:36 Drug: NS 0.9% IV 500 ml IV at bolus once; to be given as a bolus over 30 minutes Route: af3 IV; Rate: bolus; Site: left hand; 12:05 Follow up: IV Status: Completed infusion rg5 12:23 Drug: Ondansetron IVP 4 mg IVP once; over 2 minutes Route: IVP; Site: left hand; rg5 13:30 Follow up: Response: No adverse reaction rg5 17:45 Not Given (patient was admitted already to 4200): ativan0.5 mg IVP once; GIVE JUST rg5 PRIOR TO MRI Medication: 12:10 VIS not applicable for this client. rg5 Outcome: 13:41 Decision to Hospitalize by Provider. ms3 14:03 Admitted to ER Hold. Please see [facility] for further documentation. rg5 14:03 Condition: stable 14:03 Instructed on the need for admit, 17:46 Patient left the ED. rg5 NIH Stroke Scale - NIH Stroke Score Date: 01/24/2025 Time: 15:22 Total Score = 2 10. Dysarthria (speech clarity - read or repeat words) - 0(Normal) 11. Extinction and Inattention (visual/tactile/auditory/spatial/personal) - 0(No abnormality) 1a. Level of Consciousness (LOC) - 0(Alert) 1b. Level of Consciousness (LOC) (Month \T\ Age) - 0(Both) 1c. LOC Commands (Open \T\ Closes Eyes/General Accounting Manager) - 0(Both) 2. Best Gaze (Lateral Gaze Paresis) - 0(Normal) 3. Visual Field Loss - 0(No visual loss) 4. Facial Palsy - 1(Minor Paralysis) 5a. Left Arm: Motor (10-second hold) - 0(No drift) 5b. Right Arm: Motor (10-second hold) - 0(No drift) 6a. Left Leg: Motor (5-second hold - always test supine) - 0(No drift) 6b. Right Leg: Motor (5-second hold - always test supine) - 0(No drift) 7. Limb Ataxia (finger/nose \T\ heel/fisher - test with eyes open) - 0(Absent) 8. Sensory Loss (pinprick arms/legs/face) - 1(Mild to moderate loss) 9. Best Language: Aphasia (description/naming/reading) - 0(No aphasia) Initials: rg5 Signatures: Dispatcher [employer] Leah Grissom, RN RN ss Christine Calderon RN RN ap3 Cristi Dooley, DO PEREZ ms3 Cr Huitron RN RN rg5 Dhara Ferreira RN RN af3
[2025-01-24] MEDS ORDERED: LORazepam 2 MG/ML VIAL ONE (15:08)
[2025-01-24] MEDS ORDERED: ACETAMINOPHEN 325 MG TABLET PO PRN (15:27)
[2025-01-24] MEDS ORDERED: MORPHINE 2 MG/ML SYR IV PRN (15:27)
[2025-01-24] MEDS ORDERED: MECLIZINE HCL 12.5 MG TAB PO PRN (15:27)
--- NOTE | 2025-01-24 15:41 | P.HP ---
Certification for Inpatient Patient admitted to: Observation With expected LOS: <2 Midnights Patient will require the following post-hospital care: None Practitioner: I am a practitioner with admitting privileges, knowledge of patient current condition, hospital course, and medical plan of care. Services: Services provided to patient in accordance with Admission requirements found in Title 42 Section 412.3 of the Code of Federal Regulations Patient History Date of Service: 01/24/25 Reason for admission: Chest pain History of Present Illness: 69-year-old male with history of CAD, hypertension, [id number] diabetes, COPD presents emergency department chief complaint of chest pain, near syncope/dizziness. Reports since last night he has had 3 episodes of dizziness/lightheadedness usually with changes in position/standing. Today while at rehab for his knee he had an episode of chest pain with near syncope/dizziness and felt reason came to the hospital for evaluation. Patient was evaluated here in the emergency department his labs are significant for initial high sensitive troponin of 3.7. While lying in the bed he does not have any symptoms of dizziness or lightheadedness, also with rapid head motion he reports that symptoms are primarily when he stands up. They have been adjusting his medications outpatient as his blood pressure has been running on the lower side recently, he takes his lisinopril only as needed but his metoprolol still scheduled. He also reported some abdominal pain, he had a CT of his head those negative for acute findings chest x-ray which was negative for acute findings and a CT of the abdomen pelvis which showed mild thickening of the wall of the proximal sigmoid colon which may be secondary to incomplete distention or inflammation. He is pending an MRI of his brain at this time, he will need to be admitted for further evaluation of his chest pain/near syncopal/lightheadedness episodes Allergies Penicillins Allergy (Severe, Verified 10/26/24 08:19) CONVULSIONS codeine [Codeine] Allergy (Intermediate, Verified 10/26/24 08:19) AMS Home Medications: Gabapentin 400 mg PO BID 06/01/20 Glimepiride 4 mg PO DAILY 06/01/20 Aspirin [Aspirin EC 81 MG] 81 mg PO DAILY 30 Days #30 tablet. 06/04/20 Atorvastatin Calcium [Lipitor] 1 tab PO BEDTIME 02/25/22 Clopidogrel Bisulfate [Plavix] 1 tab PO DAILY 02/25/22 Montelukast [Singulair*] 10 mg PO BEDTIME 10/30/22 Budesonide/Glycopyr/Formoterol [Breztri Aerosphere Inhaler] 5.9 gm IH BID 10/15/24 Buspirone HCl [Buspar] 20 mg PO DAILY 10/15/24 Donepezil HCl [Aricept] 10 mg PO DAILY 10/15/24 Tamsulosin HCl [Flomax] 0.4 mg PO BID 10/15/24 Albuterol Inhaler [Ventolin Inhaler] 2 puff IH Q4HP PRN 10/26/24 Metoprolol Succinate [Toprol Xl] 50 mg PO DAILYPRN PRN 10/26/24 Ranolazine [Ranolazine ER] 500 mg PO DAILY 10/26/24 Tirzepatide [Mounjaro] 2.5 mg SQ EVERY 7TH DAY 11/02/24 - Past Medical/Surgical History Diabetic: Yes -: DM -: HTN -: Diverticulitis -: anxiety -: CAD -: COPD -: behind right ear -: back surgery -: cholecystectomy -: hernia surgery x2 -: pilonidal cyst Psychosocial/ Personal History: Patient is retired, lives at home with his spouse - Family History Mother -: Hypertension, Diabetes Notes: glaucoma, cholecystectomy Father -: Heart disease, Hypertension, Diabetes Notes: glaucoma - Social History Alcohol use: No CD- Drugs: No Caffeine use: No Place of Residence: Home Review of Systems 10-point ROS is otherwise unremarkable Cardiovascular: Chest Pain Neurological: Other (Lightheadedness, near syncope) Physical Examination - Physical Exam General: Alert, In no apparent distress, Oriented x3 HEENT: Atraumatic, PERRLA, EOMI Neck: Supple, 2+ carotid pulse no bruit, No LAD Respiratory: Clear to auscultation bilaterally, Normal air movement Cardiovascular: Regular rate/rhythm, Normal S1 S2 Gastrointestinal: Normal bowel sounds, No tenderness Musculoskeletal: No tenderness Integumentary: No rashes Neurological: Normal gait, Normal speech, Normal strength at 5/5 x4 extr, Normal affect - Studies Laboratory Data (last 24 hrs) 01/24/25 01/24/25 01/24/25 11:20 11:20 11:20 WBC 9.80 Hgb 12.3 L Hct 37.2 L Plt Count 210 PT 12.7 INR 1.13 Sodium 135 L Potassium 4.2 BUN 14 Creatinine 0.92 Glucose 145 H Magnesium 1.8 Total Bilirubin 0.3 AST 14 L ALT 26 Alkaline Phosphatase 70 Assessment and Plan - Plan Assessment: Chest pain rule out ACS-history of CAD Lightheaded/dizziness Diabetes mellitus type 2 has [id number]-[id number] Hypertension History of COPD Plan: Chest pain rule out ACS-history of CAD Lightheaded/dizziness Trend troponin and monitor inflammatory Initial high sensitive troponin negative Cardiology consultation Orthostatic vital signs PT consultation, as needed meclizine Diabetes mellitus type 2 has luo-kvvsgzs-taigcypcn ACHS Accu-Chek, sliding insulin Carb consistent diet Hypertension Check orthostatic vital signs Blood pressure not elevated now, they have recently reduced his lisinopril to take only as needed Will hold blood pressure medications for now and monitor blood pressure History of COPD As needed nebulizer treatments DVT PPX: Lovenox Code status: Full code Discharge Plan: Home Plan to discharge in: 24 Hours - Advance Directives Does patient have a Living Will: No Does patient have a Durable POA for Healthcare: Yes - Code Status/Comfort Care Code Status Assessed: Yes (Full code) Critical Care: No Time Spent Managing Pts Care (In Minutes): 70
[2025-01-24] MEDS: NA CHLORIDE 0.9% 1,000 ML IV SCH (16:00)
[2025-01-24] MEDS: INSULIN REGULAR (HUMAN) 100 UNIT/ML SQ SCH (16:30)
[2025-01-24 18:41] VITALS: BMI 32.4
[2025-01-24 18:57] VITALS: O2SAT 96
[2025-01-24] MEDS: LORazepam 2 MG/ML VIAL IV ONE (19:39)
--- NOTE | 2025-01-24 20:35 | RAD REPORT ---
EXAMINATION: MRI BRAIN WITHOUT CONTRAST CLINICAL INDICATION: Male, 69 years old.[facility] MAIN N dizziness, vomiting Bed Name: 15 TECHNIQUE: Multiplanar multisequence MR images of the brain were obtained without intravenous contras t. Unless otherwise specified, incidental findings do not require dedicated imaging follow-up. COMPARISON: 09/21/2019 FINDINGS: INTRACRANIAL: Midline structures are unremarkable. Diffusion-weighted images show no acute or early subacute infarction. There is mild brain atrophy with mildT2/FLAIR hyperintensities in the periventricular and deep white matter regions, likely representing chronic microvascular ischemic negin nges. There is no mass effect or midline shift. No abnormal extraaxial fluid collection. VASCULATURE: Normal signal voids in the larger intracranial arteries and dural venous sinuses. SINUSES: The paranasal sinuses and mastoid air cells are predominantly clear. BONE: The marrow signal pattern is within normal limits. IMPRESSION: No significant intracranial abnormalities. Nonspecific white matter signal abnormalities, not significantly changed, suggestive of chronic small vessel ischemic changes.
[2025-01-25 07:22] LABS: Absolute Lymphocytes (CBC) 1.3 K/uL (0.7-4.9); Hematocrit 39.2 % (39.6-49.0); Hemoglobin 12.8 g/dL (13.6-17.9); MCH 26.8 pg (27.0-35.0); MCHC 32.6 g/dL (32.0-36.0); MCV 82.1 fL (80-100); MPV 7.8 fL (7.6-11.3); Nucleated RBC Absolute Count 0.0 (0-0); Nucleated Red Blood Cells % 0.1 % (0-0); RBC Red Blood Cell Count 4.77 M/uL (4.33-5.43); White Blood Count 6.60 thou/uL (4.3-10.9)
[2025-01-25 07:55] LABS: ALT/SGPT 24.0 U/L (16-61); AST/SGOT 18.0 U/L (15-37); Albumin 3.2 g/dL (3.4-5.0); Albumin/Globulin Ratio 0.9 (1.1-1.8); Alkaline Phosphatase 65.0 U/L (45-117); Anion Gap 8.0 mEq/L (5.0-15.0); BUN Blood Urea Nitrogen 11.0 mg/dL (7-18); Globulin 3.4 g/dL (2.3-3.5); Glucose Level 132.0 mg/dL (74-106); Potassium 4.0 mEq/L (3.5-5.1); Thyroid Stimulating Hormone 1.02 uIU/mL (0.358-3.740)
[2025-01-25] MEDS: BUSPIRONE HCL 5 MG TABLET PO SCH (09:02)
[2025-01-25] MEDS: ASPIRIN EC 81 MG TAB PO SCH (09:02)
[2025-01-25] MEDS: BACLOFEN 10 MG TAB PO SCH (09:02)
[2025-01-25] MEDS: GABAPENTIN 400 MG CAP PO SCH (09:02)
[2025-01-25] MEDS: TAMSULOSIN 0.4 MG SR CAP PO SCH (09:03)
--- NOTE | 2025-01-25 12:19 | P.CNS ---
Date of Consult: 01/25/25 Chief Complaint: Chest pain History of Present Illness: Patient with PMH of CAD s/p stent placement in the past, presented with dizziness, denies chest pain, no palpitations, no syncope, no breathing problems. Allergies Penicillins Allergy (Severe, Verified 10/26/24 08:19) CONVULSIONS codeine [Codeine] Allergy (Intermediate, Verified 10/26/24 08:19) AMS Home medications list reviewed: Yes Home Medications: Gabapentin 400 mg PO BID 06/01/20 Glimepiride 4 mg PO DAILY 06/01/20 Aspirin [Aspirin EC 81 MG] 81 mg PO DAILY 30 Days #30 tablet. 06/04/20 Atorvastatin Calcium [Lipitor] 1 tab PO BEDTIME 02/25/22 Montelukast [Singulair*] 10 mg PO BEDTIME 10/30/22 Buspirone HCl [Buspar] 20 mg PO BID 10/15/24 Donepezil HCl [Aricept] 10 mg PO DAILY 10/15/24 Tamsulosin HCl [Flomax] 0.4 mg PO BID 10/15/24 Albuterol Inhaler [Ventolin Inhaler] 2 puff IH Q4HP PRN 10/26/24 Ranolazine [Ranolazine ER] 500 mg PO BID 10/26/24 Tirzepatide [Mounjaro] 2.5 mg SQ EVERY 7TH DAY 11/02/24 Baclofen 10 mg PO BID 01/25/25 Cetirizine HCl [Zyrtec] 5 mg PO BEDTIME 01/25/25 Duloxetine [Cymbalta Dalayed Release Pellets] 60 mg PO BEDTIME 01/25/25 Metoprolol Succinate [Toprol Xl] 50 mg PO DAILY 01/25/25 Montelukast [Singulair] 10 mg PO BEDTIME 01/25/25 lisinopriL [Lisinopril] 5 mg PO DAILY 01/25/25 - Past Medical/Surgical History Diabetic: Yes -: DM -: HTN -: Diverticulitis -: anxiety -: CAD -: COPD -: behind right ear -: back surgery -: cholecystectomy -: hernia surgery x2 -: pilonidal cyst Psychosocial/ Personal History: Patient is retired, lives at home with his spouse - Family History Mother Medical History: Hypertension, Diabetes Notes: glaucoma, cholecystectomy Father Medical History: Heart disease, Hypertension, Diabetes Notes: glaucoma - Social History Smoking Status: Unknown if ever smoked Alcohol use: No CD- Drugs: No Caffeine use: No Place of Residence: Home Review of Systems 10-point ROS is otherwise unremarkable Physical Examination Temp Pulse Resp BP Pulse Ox 98.3 F 73 16 116/86 98 01/25/25 08:00 01/25/25 08:00 01/25/25 08:00 01/25/25 08:00 01/25/25 08:00 General: Alert, In no apparent distress HEENT: Atraumatic, PERRLA, Mucous membr. moist/pink, EOMI, Sclerae nonicteric Neck: Supple, 2+ carotid pulse no bruit, No LAD, Without JVD or thyroid abnormality Respiratory: Clear to auscultation bilaterally, Normal air movement Cardiovascular: Regular rate/rhythm, Normal S1 S2 Gastrointestinal: Normal bowel sounds, No tenderness Musculoskeletal: No tenderness Integumentary: No rashes Neurological: Normal gait, Normal speech, Normal tone, Normal affect Lymphatics: No axilla or inguinal lymphadenopathy - Problems (1) CAD (coronary artery disease) Current Visit: Yes Status: Acute Plan: tele shown sinus rhythm with no significant arrhythmia or pauses patient is currently chest pain free and troponin are negative continue ASA 81 mg daily continue Ranexa 500 mg po BID Outpatient follow up with cardiology for stress test (2) Dizziness Current Visit: No Status: Acute Plan: might be related to low BP as patient BP is borderline here despite being off medications advised to stop metoprolol Tele no arrhythmia or pauses continue to monitor on tele (3) Hypertension Current Visit: No Status: Acute Plan: BP is normal off medications, continue to hold and monitor
[2025-01-25 12:25] VITALS: BP 117/62; TEMP 98.4
--- NOTE | 2025-01-25 13:35 | RAD REPORT ---
Extremity [facility] CLINICAL INDICATION: Male, 69 years old.RLE pain, recent knee surgery RIGHT TECHNIQUE: Complete duplex sonography of the lower extremity veins was performed of the affected limb . The examination included compression for vein patency, color Doppler imaging and flow augmentation in response to distal compression of the distal external iliac, common femoral, femoral, popliteal, peroneal, tibial and great saphenous veins. [id number]. COMPARISON: No prior exams FINDINGS: Duplex sonography imaging demonstrates all deep veins examined to be fully compressible with spontane ous, phasic and augmented flow in the affected limb. IMPRESSION: No evidence of deep venous thrombosis in the right lower extremity.
--- NOTE | 2025-01-25 14:53 | P.DS ---
Admission Date: 01/24/25 Discharge Date: 01/25/25 Disposition: ROUTINE DISCHARGE Discharge Condition: GOOD Reason for Admission: Chest pain Brief History of Present Illness: 69-year-old male with history of CAD, hypertension, [id number] diabetes, COPD presents emergency department chief complaint of chest pain, near syncope/dizziness. Reports since last night he has had 3 episodes of dizziness/lightheadedness usually with changes in position/standing. Today while at rehab for his knee he had an episode of chest pain with near syncope/dizziness and felt reason came to the hospital for evaluation. Patient was evaluated here in the emergency department his labs are significant for initial high sensitive troponin of 3.7. While lying in the bed he does not have any symptoms of dizziness or lightheadedness, also with rapid head motion he reports that symptoms are primarily when he stands up. They have been adjusting his medications outpatient as his blood pressure has been running on the lower side recently, he takes his lisinopril only as needed but his metoprolol still scheduled. He also reported some abdominal pain, he had a CT of his head those negative for acute findings chest x-ray which was negative for acute findings and a CT of the abdomen pelvis which showed mild thickening of the wall of the proximal sigmoid colon which may be secondary to incomplete distention or inflammation. He is pending an MRI of his brain at this time, he will need to be admitted for further evaluation of his chest pain/near syncopal/lightheadedness episodes Hospital Course: Assessment: Chest pain rule out ACS-history of CAD Lightheaded/dizziness Diabetes mellitus type 2 has [id number] Hypertension History of COPD Patient was admitted to the hospital for a near syncopal event associated with his physical therapy outpatient. Patient was admitted under observation troponins were negative x 3, he was seen by cardiology who recommends discontinuing his metoprolol for now as his blood pressure been running soft. MRI of the brain was obtained which was negative for any acute findings patient also had right leg pain and had a recent knee surgery, venous Dopplers performed which was negative for DVT. Patient said no further symptoms, blood pressure stable, orthostatic vital signs normal. Stable for discharge and outpatient follow-up with PCP and cardiology. Vital Signs/Physical Exam: Temp Pulse Resp BP Pulse Ox 98.4 F 76 16 117/62 97 01/25/25 12:00 01/25/25 12:00 01/25/25 12:00 01/25/25 12:00 01/25/25 12:00 General: Alert, In no apparent distress, Oriented x3 HEENT: Atraumatic, PERRLA Neck: Supple, JVD not distended Respiratory: Clear to auscultation bilaterally, Normal air movement Cardiovascular: Regular rate/rhythm, Normal S1 S2 Gastrointestinal: Normal bowel sounds, No tenderness Musculoskeletal: No tenderness Integumentary: No rashes Neurological: Normal speech, Normal affect Laboratory Data at Discharge: WBC 6.60 thou/uL (4.3-10.9) 01/25/25 07:03 Hgb 12.8 g/dL (13.6-17.9) L 01/25/25 07:03 Hct 39.2 % (39.6-49.0) L 01/25/25 07:03 Plt Count 231 thou/uL (152-406) 01/25/25 07:03 PT 12.7 SECONDS (10-13.0) 01/24/25 11:20 INR 1.13 01/24/25 11:20 Sodium 139 mEq/L (136-145) 01/25/25 07:03 Potassium 4.0 mEq/L (3.5-5.1) 01/25/25 07:03 BUN 11 mg/dL (7-18) 01/25/25 07:03 Creatinine 0.98 mg/dL (0.70-1.30) 01/25/25 07:03 Glucose 132 mg/dL (74-106) H 01/25/25 07:03 Magnesium 1.8 mg/dL (1.6-2.4) 01/24/25 11:20 Total Bilirubin 0.3 mg/dL (0.2-1.0) 01/25/25 07:03 AST 18 U/L (15-37) 01/25/25 07:03 ALT 24 U/L (16-61) 01/25/25 07:03 Alkaline Phosphatase 65 U/L (45-117) 01/25/25 07:03 Home Medications: Gabapentin 400 mg PO BID 06/01/20 Glimepiride 4 mg PO DAILY 06/01/20 Aspirin [Aspirin EC 81 MG] 81 mg PO DAILY 30 Days #30 tablet. 06/04/20 Atorvastatin Calcium [Lipitor] 1 tab PO BEDTIME 02/25/22 Montelukast [Singulair*] 10 mg PO BEDTIME 10/30/22 Buspirone HCl [Buspar] 20 mg PO BID 10/15/24 Donepezil HCl [Aricept] 10 mg PO DAILY 10/15/24 Tamsulosin HCl [Flomax] 0.4 mg PO BID 10/15/24 Albuterol Inhaler [Ventolin Inhaler*] 2 puff IH Q4HP PRN 10/26/24 Ranolazine [Ranolazine ER] 500 mg PO BID 10/26/24 Tirzepatide [Mounjaro] 2.5 mg SQ EVERY 7TH DAY 11/02/24 Baclofen 10 mg PO BID 01/25/25 Cetirizine HCl [Zyrtec*] 5 mg PO BEDTIME 01/25/25 Duloxetine [Cymbalta *] 60 mg PO BEDTIME 01/25/25 Montelukast [Singulair*] 10 mg PO BEDTIME 01/25/25 lisinopriL [Lisinopril] 5 mg PO DAILY 01/25/25 Physician Discharge Instructions: Patient was admitted to the hospital for a near syncopal event associated with his physical therapy outpatient. Patient was admitted under observation troponins were negative x 3, he was seen by cardiology who recommends discontinuing his metoprolol for now as his blood pressure been running soft. MRI of the brain was obtained which was negative for any acute findings patient also had right leg pain and had a recent knee surgery, venous Dopplers performed which was negative for DVT. Patient said no further symptoms, blood pressure stable, orthostatic vital signs normal. Stable for discharge and outpatient follow-up with PCP and cardiology. Diet: ADA Activity: Ad sheridan Followup: Danette Varma MD [Primary Care Provider] - 1-2 Weeks James Liao MD [ACTIVE - CAN ADMIT] - 1-2 Weeks Time spent managing pt's care (in minutes): 38
[2025-01-25] MEDS ORDERED: ATORVASTATIN 40 MG TAB PO SCH (21:00)
[2025-01-25] MEDS ORDERED: CETIRIZINE HCL 5 MG TABLET PO SCH (21:00)
[2025-01-25] MEDS ORDERED: MONTELUKAST 10 MG TAB PO SCH (21:00)
[2025-01-25] MEDS ORDERED: DULOXETINE 30 MG CAP PO SCH (21:00)
[2025-01-25] MEDS ORDERED: DONEPEZIL HCL 5 MG TAB PO SCH (21:00)
== END 2025-01-25 15:19 | disposition home or self-care (01) ==
LOC: ER 11:04 → ERHOLD 15:26 → 4TH 16:30
PROVIDERS: ADMIT Internal Medicine; ATTEND Internal Medicine
DX: R07.9 Chest pain, unspecified (principal); I25.10 Atherosclerotic heart disease of native coronary artery without angina pectoris; I10 Essential (primary) hypertension; E11.9 Type 2 diabetes mellitus without complications; J44.9 Chronic obstructive pulmonary disease, unspecified; R55 Syncope and collapse; R42 Dizziness and giddiness; Z88.0 Allergy status to penicillin; Z88.5 Allergy status to narcotic agent
CPT/HCPCS: 93005; 85025 ×2; 80048; 36415; 83735; 85610; 82947 ×6; 80076; 84443; 84484 ×3; 84439; 80053; 83880; 70450; 74177; 71045; 93971; 70551; 97116; 97161; 97530 ×2; 96372; 96374; 99285; Q9967; J2550; J2405; J7040; G0378 ×4